=== PATIENT | male | born 1970 | race African-American/Black ===

== ENCOUNTER 2016-08-15 08:21 | Emergency (ER) | payer MEDICARE ==
[2016-08-15] MEDS ORDERED: HYDRALAZINE HCL INJ/PF 20 MG/1 ML SDV IV ONE ×2 (09:17→12:05)
[2016-08-15] MEDS ORDERED: FUROSEMIDE INJ/PF 40 MG/4 ML SDV IV ONE (09:17)
[2016-08-15] MEDS ORDERED: CLOBETASOL PROPIONATE 0.05% TOPICAL SOLN 25 ML TP ONE (09:18)
[2016-08-15 10:11] LABS: ABSOLUTE EOSINOPHILS # (AUTO) 0.1 10^3/uL (0.0-0.6); ABSOLUTE LYMPHOCYTES (AUTO) 1.2 10^3/uL (0.5-4.7); ABSOLUTE MONOCYTES (AUTO) 0.4 10^3/uL (0.1-1.4); ABSOLUTE NEUT (AUTO) 3.1 10^3/uL (1.7-8.2); BASOPHILS % (AUTO) 0.6 % (0-2); EOSINOPHILS % (AUTO) 2.4 % (0-6); HEMATOCRIT 38.9 % (37.9-51.0); HEMOGLOBIN 13.1 g/dL (13.5-17.0); HGB HCT DIFFERENCE 0.4; LYMPHOCYTES % (AUTO) 25.2 % (13-45); MEAN CORPUSCULAR HEMOGLOBIN 29.1 pg (27.0-33.4); MEAN CORPUSCULAR HGB CONC 33.7 g/dL (32.0-36.0); MEAN CORPUSCULAR VOLUME 86 fl (80-97); MONOCYTES % (AUTO) 7.4 % (3-13); RED BLOOD COUNT 4.52 10^6/uL (4.35-5.55); RED CELL DISTRIBUTION WIDTH 14.6 % (11.5-14.0); SEGMENTED NEUTROPHILS % (AUTO) 64.4 % (42-78); WHITE BLOOD COUNT 4.8 10^3/uL (4.0-10.5)
[2016-08-15 10:28] LABS: ALANINE AMINOTRANSFERASE 25 U/L (21-72); ALKALINE PHOSPHATASE 93 U/L (38-126); ANION GAP 10 (5-19); ASPARTATE AMINO TRANSFERASE 23 U/L (17-59); BILIRUBIN,TOTAL 0.7 mg/dL (0.2-1.3); BLOOD UREA NITROGEN 17 mg/dL (7-20); CALCIUM 9.6 mg/dL (8.4-10.2); CARBON DIOXIDE 28 mmol/L (22-30); CHLORIDE 98 mmol/L (98-107); CREATINE KINASE 93 U/L (55-170); CREATININE RESULT 0.98 mg/dL (0.52-1.25); GLUCOSE 320 mg/dL (75-110); POTASSIUM 4.3 mmol/L (3.6-5.0); SODIUM 135.7 mmol/L (137-145); TOTAL PROTEIN 6.8 g/dL (6.3-8.2)
[2016-08-15 10:40] LABS: CREATINE KINASE MB 0.78 ng/mL (<4.55); TROPONIN I 0.016 ng/mL
[2016-08-15 11:37] LABS: APPEARANCE,URINE CLEAR; BILIRUBIN,URINE NEGATIVE (NEGATIVE); GLUCOSE, URINE >=500 mg/dL (NEGATIVE); KETONES,URINE NEGATIVE (NEGATIVE); LEUKOCYTE ESTERASE,URINE NEGATIVE (NEGATIVE); NITRITE,URINE NEGATIVE (NEGATIVE); PROTEIN,URINE 30 mg/dL (NEGATIVE); URINE SPECIFIC GRAVITY 1.016; UROBILINOGEN,URINE NEGATIVE mg/dL (<2.0)
[2016-08-15 11:50] LABS: URINE BARBITURATES SCREEN NEGATIVE; URINE METHADONE SCREEN NEGATIVE; URINE OPIATES LOW NEGATIVE; URINE PHENCYCLIDINE SCREEN NEGATIVE
[2016-08-15] MEDS ORDERED: CLONIDINE HCL 0.2 MG TABLET PO ONE (11:52)
[2016-08-15] MEDS ORDERED: HYDRALAZINE HCL 50 MG TABLET PO ONE (11:52)
[2016-08-15] MEDS ORDERED: NORMAL SALINE 1000 ML 500 ML IV ONE (12:50)
--- NOTE | 2016-08-15 14:51 | ER Document Report ---
ED General - General Chief Complaint: Edema Stated Complaint: LEG PAIN TRAVEL OUTSIDE OF THE [place] IN LAST 30 DAYS: No - HPI Patient complains to provider of: edema hypertension psoriasis Notes: Patient coming in for evaluation of his plaque psoriasis his hypertension and lower extremity edema. Patient states he was recently admitted to the hospital at that time he return to his home of your patient is now returned to a requesting refills as medication and further evaluation of lotion knee edema and his diffuse plaque psoriasis. patient states that he does have a cream he is out of this medication also states he is out of some of his blood pressure medications. patient states that she is compliant with medication however he does relay to the nurse date sometimes does not take all his medications due to the number of them. patient also states history of dvt in the past. at this time 5 iron patient patient blood pressure is severely elevated however patient seems to be in no obvious distress. denies fevers chills nausea vomiting chest pain abdominal pain - Related Data Allergies/Adverse Reactions: iodine [Iodine] Allergy (Severe, Verified 08/15/16 08:29) SWELLING Shellfish * [Shellfish] Allergy (Severe, Verified 08/15/16 08:29) Anaphylaxis morphine [Morphine] Allergy (Mild, Verified 08/15/16 08:29) diazepam [From Valium] Allergy (Verified 08/15/16 08:29) Home Medications: Current Home Medications Oxycodone HCl/Acetaminophen [Percocet 10-325 Mg Tablet] 1 tab PO Q4HP PRN [History] Past Medical History - Social History Smoking Status: Never Smoker Chew tobacco use (# tins/day): No Frequency of alcohol use: None Drug Abuse: None Family History: Arthritis, CAD, CVA, DM, Hyperlipidemia, Hypertension, Malignancy, Other Patient has suicidal ideation: No Patient has homicidal ideation: No - Past Medical History Cardiac Medical History: Reports: Hx Coronary Artery Disease, Hx DVT - right leg., Hx Heart Attack, Hx Hypercholesterolemia, Hx Hypertension, Hx Heart Murmur Pulmonary Medical History: Denies: Hx Asthma, Hx COPD, Hx Tuberculosis Neurological Medical History: Reports: Hx Cerebrovascular Accident - Lt sided weakness, Hx Seizures Endocrine Medical History: Reports: Hx Diabetes Mellitus Type 1, Hx Diabetes Mellitus Type 2. Denies: Hx Hyperthyroidism, Hx Hypothyroidism Renal/ Medical History: Reports: Hx Kidney Stones. Denies: Hx Peritoneal Dialysis GI Medical History: Reports: Hx Gastroesophageal Reflux Disease. Denies: Hx Cirrhosis, Hx Hepatitis Musculoskeltal Medical History: Reports Hx Arthritis, Reports Hx Muscle Weakness - Left Skin Medical History: Reports Hx Eczema, Denies Hx MRSA, Reports Hx Psoriasis Psychiatric Medical History: Denies: Hx Depression, Hx Schizoaffective Disorder Infectious Medical History: Denies: Hx Hepatitis, Hx MRSA Past Surgical History: Reports: Hx Cardiac Catheterization, Hx Cardiac Surgery - VSD having four previous surgeries as a child; heart valve defect, Hx Open Heart Surgery - VSD having four previous surgeries as a child; heart valve defect, Hx Vascular Surgery - Stents in right leg, Other - 4 separate operations for ventricular septal defect as a child.. Denies: Hx Pacemaker - Immunizations Immunizations up to date: Yes Hx Diphtheria, Pertussis, Tetanus Vaccination: Yes Hx Pneumococcal Vaccination: 03/24/13 Review of Systems - Review of Systems Constitutional: Other - Hypertension plaque psoriasis and lower extremity edema EENT: No symptoms reported Cardiovascular: No symptoms reported Respiratory: No symptoms reported Gastrointestinal: No symptoms reported Genitourinary: No symptoms reported Male Genitourinary: No symptoms reported Musculoskeletal: No symptoms reported Skin: No symptoms reported Hematologic/Lymphatic: No symptoms reported Neurological/Psychological: No symptoms reported -: Yes All other systems reviewed and negative Physical Exam - Vital signs Vitals: Temp Pulse Resp BP Pulse Ox 97.8 F 96 18 198/117 H 96 08/15/16 08:28 08/15/16 08:28 08/15/16 08:28 08/15/16 08:28 08/15/16 08:28 Interpretation: Hypertensive - General General appearance: Appears well, Alert - HEENT Head: Normocephalic, Atraumatic Eyes: Normal Pupils: PERRL - Respiratory Respiratory status: No respiratory distress Chest status: Nontender Breath sounds: Normal Chest palpation: Normal - Cardiovascular Rhythm: Regular Heart sounds: Normal auscultation Murmur: No - Abdominal Inspection: Normal Distension: No distension Bowel sounds: Normal Tenderness: Nontender Organomegaly: No organomegaly - Back Back: Normal, Nontender - Extremities General upper extremity: Normal inspection, Nontender, Normal color, Normal ROM , Normal temperature General lower extremity: Normal inspection, Nontender, Edema - Mild trace edema bilateral Tenderness, Normal color, Normal ROM, Normal temperature, Normal weight bearing. No: Eric's sign - Neurological Neuro grossly intact: Yes Cognition: Normal Orientation: AAOx4 Eric Coma Scale Eye Opening: Spontaneous [place] Coma Scale Verbal: Oriented [place] Coma Scale Motor: Obeys Commands Eric Coma Scale Total: 15 Speech: Normal Motor strength normal: LUE, RUE, LLE, RLE Sensory: Normal - Psychological Associated symptoms: Normal affect, Normal mood - Skin Skin Temperature: Warm Skin Moisture: Dry Skin Color: Normal, Other - Diffuse plaque psoriasis on the lower extremities seems to be spreading to the upper extremities no signs of overlying cellulitis no signs of infection Course - Re-evaluation Re-evalutation: 08/15/16 15:49 Patient was given IV hydralazine while initial studies reperformed. No signs of DVT chest x-rays negative shows stable cardiomegaly. Lab work shows no serious pathology. Patient was then given a dose of his home medications. Patient did have a near-syncopal episode here in the ER upon standing did become diaphoretic however mildly hypertensive this resolved upon laying patient in the stretcher. Patient complains of no other symptoms during this time. Patient was observed after this no other episodes. Patient was able ambulate without difficulty. Patient had a refill of his medications. Patient was encouraged follow-up with a PCP. Hypertension had improved. Patient will be discharged home - Vital Signs Vital signs: Temp Pulse Resp BP Pulse Ox 97.8 F 96 21 H 133/78 H 97 08/15/16 08:28 08/15/16 08:28 08/15/16 13:31 08/15/16 13:31 08/15/16 13:31 - Laboratory Result Diagrams: 08/15/16 09:50 08/15/16 09:50 Laboratory results interpreted by me: 08/15/16 08/15/16 08/15/16 09:50 09:50 09:50 Hgb 13.1 L RDW 14.6 H Sodium 135.7 L Glucose 320 H POC Glucose NT-Pro-B Natriuret Pep 512 H Urine Protein Urine Glucose (UA) 08/15/16 08/15/16 10:45 12:49 Hgb RDW Sodium Glucose POC Glucose 270 H NT-Pro-B Natriuret Pep Urine Protein 30 H Urine Glucose (UA) >=500 H Discharge - Discharge Clinical Impression: Insulin dependent diabetes mellitus, Swelling of lower extremity Hypertension Qualifiers: Hypertension type: essential hypertension Qualified Code(s): I10 - Essential ( primary) hypertension Condition: Good Disposition: HOME, SELF-CARE Instructions: High Blood Pressure ([facility]), Edema, Peripheral ([facility]) Additional Instructions: Please follow-up with your primary care physician. Return to the ER symptoms worsen. Take medications as prescribed.
[2016-08-15 15:50] VITALS: BP 134/76
--- NOTE | 2016-08-15 19:00 | XCELERA REPORT ---
[address] [address] Lower Extremity Venous Evaluation Name: SHARON JERONIMO Age: 45 yrs Gender: Male : 1970 Patient Status: Emergency Patient Location: ER Study Date: 08/15/2016 10:04 AM Procedure: Color flow and duplex imaging bilaterally of the veins of the lower extremities as well as the Common Femoral veins. Reason For Study: hx of dvt bilateral swelling and pain Ordering Physician: ALAINA FARRELL Performed By: Asa Dorsey Right Sided Venous Evaluation Normal vessel filling wall to wall, compression and augmentation as well as Colour flow down to the infrageniculate veins. Left Sided Venous Evaluation Normal vessel filling wall to wall, compression and augmentation as well as Colour flow down to the infrageniculate veins. Critical Findings Called in to Dr Daughtery. Interpretation Summary No duplex evidence of DVT or obstruction in the bilateral lower extremities. : ALAINA FARRELL > Josiah Eaton
--- NOTE | 2016-08-16 08:15 | EKG REPORT ---
SEVERITY:- ABNORMAL ECG - SINUS RHYTHM PROBABLE LEFT ATRIAL ABNORMALITY INCOMPLETE RBBB AND LAFB ABNORMAL T, CONSIDER ISCHEMIA, LATERAL LEADS BORDERLINE PROLONGED QT INTERVAL : Confirmed by: Loyda Fernandes MD 16-Aug-2016 08:14:51
== END 2016-08-15 15:20 | disposition home or self-care (01) ==
LOC: ER 08:21
DX: E11.9 Type 2 diabetes mellitus without complications (principal); R60.0 Localized edema; M79.609 Pain in unspecified limb; L40.0 Psoriasis vulgaris; I10 Essential (primary) hypertension; Z79.4 Long term (current) use of insulin
CPT/HCPCS: 93005; 96376; 99285; 96374; 96375; 36415; 82553; 82962; 82550; 85025; 80053; 81001; 84484; 80307; 83880; 93970 ×2; 71010; 93010; A9270 ×2; J3490; J1940; J0360; J7030

== ENCOUNTER 2016-11-08 10:03 | Inpatient (IN) | payer MEDICARE ==
--- NOTE | 2016-11-08 10:36 | EKG REPORT ---
SEVERITY:- ABNORMAL ECG - SINUS RHYTHM LEFT ATRIAL ABNORMALITY LEFT ANTERIOR FASCICULAR BLOCK ABNORMAL T, CONSIDER ISCHEMIA, LATERAL LEADS BORDERLINE PROLONGED QT INTERVAL : Confirmed by: Loyda Fernandes MD 08-Nov-2016 10:35:56
[2016-11-08] MEDS ORDERED: ASPIRIN 81 MG TABLET, CHEWABLE PO ONE (10:49)
--- NOTE | 2016-11-08 10:49 | ER Document Report ---
ED Medical Screen (RME) - General Chief Complaint: Chest Pain Stated Complaint: CHEST PAIN/SHORTNESS OF BREATH Time Seen by Provider: 11/08/16 10:43 Notes: Patient says he began experiencing chest pains last night while watching TV. The pain is located in the lower substernal region of his chest and goes to the right chest. As he had a heart attack in 2010 with exactly the same symptoms. He also started having a severe headache last night about 7:30 PM. Patient recently moved back to this area from [facility]. He has very severe hypertension and is on multiple medications for his blood pressure. He also has had a stroke in the past. So has had blood clots in his legs and is currently on Coumadin. TRAVEL OUTSIDE OF THE [place] IN LAST 30 DAYS: No - Related Data Allergies/Adverse Reactions: iodine [Iodine] Allergy (Severe, Verified 08/15/16 08:29) SWELLING Shellfish * [Shellfish] Allergy (Severe, Verified 08/15/16 08:29) Anaphylaxis morphine [Morphine] Allergy (Mild, Verified 08/15/16 08:29) diazepam [From Valium] Allergy (Verified 08/15/16 08:29) furosemide [From Lasix] Allergy (Verified 11/08/16 10:20) Past Medical History - Social History Family history: CAD - Past Medical History Cardiac Medical History: Reports: Hx Coronary Artery Disease, Hx DVT - right leg., Hx Heart Attack, Hx Hypercholesterolemia, Hx Hypertension, Hx Heart Murmur Pulmonary Medical History: Denies: Hx Asthma, Hx COPD, Hx Tuberculosis Neurological Medical History: Reports: Hx Cerebrovascular Accident - Lt sided weakness, Hx Seizures Endocrine Medical History: Reports: Hx Diabetes Mellitus Type 1, Hx Diabetes Mellitus Type 2. Denies: Hx Hyperthyroidism, Hx Hypothyroidism Renal/ Medical History: Reports: Hx Kidney Stones. Denies: Hx Peritoneal Dialysis GI Medical History: Reports: Hx Gastroesophageal Reflux Disease. Denies: Hx Cirrhosis, Hx Hepatitis Musculoskeltal Medical History: Reports Hx Arthritis, Reports Hx Muscle Weakness - Left Skin Medical History: Reports Hx Eczema, Denies Hx MRSA, Reports Hx Psoriasis Psychiatric Medical History: Denies: Hx Depression, Hx Schizoaffective Disorder Infectious Medical History: Denies: Hx Hepatitis, Hx MRSA Past Surgical History: Reports: Hx Cardiac Catheterization, Hx Cardiac Surgery - VSD having four previous surgeries as a child; heart valve defect, Hx Open Heart Surgery - VSD having four previous surgeries as a child; heart valve defect, Hx Vascular Surgery - Stents in right leg, Other - 4 separate operations for ventricular septal defect as a child.. Denies: Hx Pacemaker - Immunizations Immunizations up to date: Yes Hx Diphtheria, Pertussis, Tetanus Vaccination: Yes Physical Exam - Vital signs Vitals: Temp Pulse Resp BP Pulse Ox 98.2 F 89 24 H 199/120 H 96 11/08/16 10:20 11/08/16 10:20 11/08/16 10:20 11/08/16 10:20 11/08/16 10:20 Course - Vital Signs Vital signs: Temp Pulse Resp BP Pulse Ox 98.2 F 89 24 H 199/120 H 96 11/08/16 10:20 11/08/16 10:20 11/08/16 10:20 11/08/16 10:20 11/08/16 10:20
[2016-11-08 11:46] LABS: ABSOLUTE BASOPHILS # (AUTO) 0.1 10^3/uL (0.0-0.2); ABSOLUTE EOSINOPHILS # (AUTO) 0.1 10^3/uL (0.0-0.6); ABSOLUTE LYMPHOCYTES (AUTO) 1.5 10^3/uL (0.5-4.7); ABSOLUTE MONOCYTES (AUTO) 0.2 10^3/uL (0.1-1.4); ABSOLUTE NEUT (AUTO) 3.6 10^3/uL (1.7-8.2); BASOPHILS % (AUTO) 1.4 % (0-2); EOSINOPHILS % (AUTO) 1.2 % (0-6); HEMATOCRIT 40.8 % (37.9-51.0); HEMOGLOBIN 13.6 g/dL (13.5-17.0); LYMPHOCYTES % (AUTO) 27.5 % (13-45); MEAN CORPUSCULAR HEMOGLOBIN 28.9 pg (27.0-33.4); MEAN CORPUSCULAR HGB CONC 33.3 g/dL (32.0-36.0); MEAN CORPUSCULAR VOLUME 87 fl (80-97); MONOCYTES % (AUTO) 4.4 % (3-13); RED BLOOD COUNT 4.71 10^6/uL (4.35-5.55); RED CELL DISTRIBUTION WIDTH 14.9 % (11.5-14.0); SEGMENTED NEUTROPHILS % (AUTO) 65.5 % (42-78); WHITE BLOOD COUNT 5.5 10^3/uL (4.0-10.5)
[2016-11-08] MEDS ORDERED: LABETALOL HCL 200 MG TABLET PO ONE (11:49)
[2016-11-08] MEDS ORDERED: HYDRALAZINE HCL 50 MG TABLET PO ONE ×2 (11:49→16:00)
[2016-11-08] MEDS ORDERED: LISINOPRIL 10 MG TABLET PO ONE (11:49)
[2016-11-08] MEDS ORDERED: CHLORTHALIDONE 25 MG TABLET PO ONE (11:50)
[2016-11-08] MEDS ORDERED: NIFEDIPINE 30 MG TAB.ER.24 PO ONE ×2 (11:50→16:00)
[2016-11-08] MEDS ORDERED: SPIRONOLACTONE 25 MG TABLET PO ONE (11:50)
--- NOTE | 2016-11-08 11:56 | ER Document Report ---
ED Cardiac - General Chief Complaint: Chest Pain Stated Complaint: CHEST PAIN/SHORTNESS OF BREATH Time Seen by Provider: 11/08/16 10:43 Notes: The patient is a 46-year-old male, past medical history hypertension, diabetes, CAD s/p stents and CABG in 2010, DVT last year (out of his Coumadin), presents with substernal chest pressure radiating to his right chest and right jaw that started at rest last night. He took a sublingual nitro with some relief of his pain. He did not take his home blood pressure medication today because he was afraid that his blood pressure would drop too quickly with the nitro. he was living in [facility], but moved back to [place] a few weeks ago. He does not have a primary care physician yet. He denies shortness of breath, leg swelling, hemoptysis, cough, back pain, abdominal pain, fevers, nausea or vomiting. TRAVEL OUTSIDE OF THE [place] IN LAST 30 DAYS: No - Related Data Allergies/Adverse Reactions: iodine [Iodine] Allergy (Severe, Verified 08/15/16 08:29) SWELLING Shellfish * [Shellfish] Allergy (Severe, Verified 08/15/16 08:29) Anaphylaxis morphine [Morphine] Allergy (Mild, Verified 08/15/16 08:29) diazepam [From Valium] Allergy (Verified 08/15/16 08:29) furosemide [From Lasix] Allergy (Verified 11/08/16 10:20) Past Medical History - General Information source: Patient - Social History Smoking Status: Unknown if Ever Smoked Family History: Arthritis, CAD, CVA, DM, Hyperlipidemia, Hypertension, Malignancy, Other Patient has suicidal ideation: No Patient has homicidal ideation: No - Past Medical History Cardiac Medical History: Reports: Hx Coronary Artery Disease, Hx DVT - right leg., Hx Heart Attack, Hx Hypercholesterolemia, Hx Hypertension, Hx Heart Murmur Pulmonary Medical History: Denies: Hx Asthma, Hx COPD, Hx Tuberculosis Neurological Medical History: Reports: Hx Cerebrovascular Accident - Lt sided weakness, Hx Seizures Endocrine Medical History: Reports: Hx Diabetes Mellitus Type 1, Hx Diabetes Mellitus Type 2. Denies: Hx Hyperthyroidism, Hx Hypothyroidism Renal/ Medical History: Reports: Hx Kidney Stones. Denies: Hx Peritoneal Dialysis GI Medical History: Reports: Hx Gastroesophageal Reflux Disease. Denies: Hx Cirrhosis, Hx Hepatitis Musculoskeltal Medical History: Reports Hx Arthritis, Reports Hx Muscle Weakness - Left Skin Medical History: Reports Hx Eczema, Denies Hx MRSA, Reports Hx Psoriasis Psychiatric Medical History: Denies: Hx Depression, Hx Schizoaffective Disorder Infectious Medical History: Denies: Hx Hepatitis, Hx MRSA Past Surgical History: Reports: Hx Cardiac Catheterization, Hx Cardiac Surgery - VSD having four previous surgeries as a child; heart valve defect, Hx Open Heart Surgery - VSD having four previous surgeries as a child; heart valve defect, Hx Vascular Surgery - Stents in right leg, Other - 4 separate operations for ventricular septal defect as a child.. Denies: Hx Pacemaker - Immunizations Immunizations up to date: Yes Hx Diphtheria, Pertussis, Tetanus Vaccination: Yes Hx Pneumococcal Vaccination: 03/24/13 Review of Systems - Review of Systems Notes: REVIEW OF SYSTEMS: CONSTITUTIONAL: -fevers, -chills EENT: -eye pain, -difficulty swallowing, -nasal congestion CARDIOVASCULAR: +chest pain, -syncope. RESPIRATORY: -cough, -SOB GASTROINTESTINAL: -abdominal pain, -nausea, -vomiting, -diarrhea GENITOURINARY: -dysuria, -hematuria MUSCULOSKELETAL: -back pain, -neck pain SKIN: -rash or skin lesions. HEMATOLOGIC: -easy bruising or bleeding. LYMPHATIC: -swollen, enlarged glands. NEUROLOGICAL: -altered mental status or loss of consciousness, -headache, - neurologic symptoms PSYCHIATRIC: -anxiety, -depression. ALL OTHER SYSTEMS REVIEWED AND NEGATIVE. Physical Exam - Vital signs Vitals: Temp Pulse Resp BP Pulse Ox 98.2 F 89 24 H 199/120 H 96 11/08/16 10:20 11/08/16 10:20 11/08/16 10:20 11/08/16 10:20 11/08/16 10:20 - Notes Notes: PHYSICAL EXAMINATION: GENERAL: Well-appearing, well-nourished and in no acute distress. HEAD: Atraumatic, normocephalic. EYES: Pupils equal round and reactive to light, extraocular movements intact, sclera anicteric, conjunctiva are normal. ENT: nares patent, oropharynx clear without exudates. Moist mucous membranes. NECK: Normal range of motion, supple without lymphadenopathy LUNGS: Breath sounds clear to auscultation bilaterally and equal. No wheezes rales or rhonchi. HEART: Regular rate and rhythm without murmurs ABDOMEN: Soft, nontender, normoactive bowel sounds. No guarding, no rebound. No masses appreciated. EXTREMITIES: Normal range of motion, no pitting or edema. No cyanosis. NEUROLOGICAL: Cranial nerves grossly intact. Normal speech, normal gait. Normal sensory, motor, and reflex exams. PSYCH: Normal mood, normal affect. SKIN: Warm, Dry, normal turgor, no rashes or lesions noted. Course - Re-evaluation Re-evalutation: Patient provided with his home blood pressure medications which he did not take with improvement of his blood pressure to 180/100. With Nitropaste, patient is chest pain-free his EKG is unchanged and first troponin is negative. His HEART score is symptoms atypical for aortic dissection or PE at this time. Patient requires observation for further evaluation of this chest pain. 11/08/16 14:[address] Teixeira and he has admitted patient to [facility]. - Vital Signs Vital signs: Temp Pulse Resp BP Pulse Ox 98.2 F 89 21 H 182/100 H 96 11/08/16 10:20 11/08/16 10:20 11/08/16 14:01 11/08/16 14:01 11/08/16 14:01 - Laboratory Result Diagrams: 11/08/16 11:25 11/08/16 11:25 Laboratory results interpreted by me: 11/08/16 11/08/16 11:25 11:25 RDW 14.9 H Carbon Dioxide 32 H Glucose 284 H - Diagnostic Test Radiology reviewed: Image reviewed, Reports reviewed Radiology results interpreted by me: CXR: stable cardiomegaly. NAD - EKG Interpretation by Me EKG shows normal: Sinus rhythm, [place], QRS Complexes When compared to previous EKG there are: No significant change Additional EKG results interpreted by me: T-wave changes in lateral leads, LAFB, QTc 485 Discharge - Discharge Clinical Impression: Chest pain Qualifiers: Chest pain type: unspecified Qualified Code(s): R07.9 - Chest pain, unspecified Hypertension Qualifiers: Hypertension type: unspecified secondary hypertension Qualified Code(s): I15.9 - Secondary hypertension, unspecified; I15 - Secondary hypertension Condition: Stable Disposition: ADMITTED OBSERVATION Admitting Provider: Cheo Teixeira Unit Admitted: Telemetry
[2016-11-08 12:01] LABS: PROTHROMBIN TIME 14.1 SEC (11.4-15.4)
[2016-11-08] MEDS ORDERED: AMINOPHYLLINE INJ/PF 250 MG/10 ML SDV IV ONE (12:11)
[2016-11-08] MEDS ORDERED: REGADENOSON INJ 0.4 MG/5 ML DISP.SYRIN IV ONE (12:11)
[2016-11-08] MEDS: NITROGLYCERIN 0.4 MG/TAB 25 TAB/BOTTLE SL PRN ×2 (12:12→12:20)
[2016-11-08 12:20] LABS: CREATINE KINASE MB 0.71 ng/mL (<4.55)
[2016-11-08 12:21] LABS: TROPONIN I < 0.012 ng/mL
[2016-11-08 12:25] LABS: ALANINE AMINOTRANSFERASE 28 U/L (21-72); ALKALINE PHOSPHATASE 85 U/L (38-126); ANION GAP 7 (5-19); ASPARTATE AMINO TRANSFERASE 27 U/L (17-59); BILIRUBIN,DIRECT 0.4 mg/dL (0.0-0.4); BILIRUBIN,TOTAL 0.7 mg/dL (0.2-1.3); BLOOD UREA NITROGEN 15 mg/dL (7-20); CALCIUM 9.8 mg/dL (8.4-10.2); CARBON DIOXIDE 32 mmol/L (22-30); CHLORIDE 98 mmol/L (98-107); CREATINE KINASE 78 U/L (55-170); CREATININE RESULT 1.03 mg/dL (0.52-1.25); GLUCOSE 284 mg/dL (75-110); POTASSIUM 4.3 mmol/L (3.6-5.0); SODIUM 137.3 mmol/L (137-145); TOTAL PROTEIN 7.7 g/dL (6.3-8.2)
[2016-11-08] MEDS ORDERED: NITROGLYCERIN 2% OINTMENT 1 GM PACKET TP ONE (13:40)
[2016-11-08] MEDS ORDERED: ONDANSETRON HCL INJ/PF 4 MG/2 ML SDV IV PRN (15:01)
[2016-11-08] MEDS ORDERED: ACETAMINOPHEN 325 MG TABLET PO ONE (15:13)
[2016-11-08] MEDS ORDERED: ENALAPRILAT DIHYDRATE INJ/PF 1.25 MG/1 ML SDV IV PRN (15:13)
[2016-11-08] MEDS ORDERED: HYDROMORPHONE HCL INJ/PF 2 MG/ML AMPULE IV PRN (15:25)
[2016-11-08] MEDS ORDERED: DEXTROSE 40% GEL 15 GM TUBE PO PRN ×2 (15:26)
[2016-11-08] MEDS ORDERED: GLUCAGON,HUMAN RECOMB 1 MG INJ IM PRN (15:26)
[2016-11-08] MEDS ORDERED: DEXTROSE 50%-WATER 25 GM/50 ML DISP.SYRIN IV PRN ×2 (15:26)
--- NOTE | 2016-11-08 15:38 | PDOC H&P ---
History of Present Illness Admission Date/PCP: 11/08/16; no PCP Patient complains of: chest pain History of Present Illness: SHARON JERONIMO is a 46 year old male presents to the ED from home with unrelenting, recurring substernal chest pain radiating into Rt chest, sharp, stabbing in nature, asct'd with intense global dull aching APPLE, some better with NTG, no exac factors and no other asct'd symptoms. 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 he has known refractory HTN requiring admission to this hospital in the past and needs a high dose multidrug regimen to get his BPs <200/100 and they are never "normal" . He took his BP last night during the first episode and found 252/169. he underwent stress test 02/2016f inding of fixed inferior defect, low EF at 31% and RVH. echo also performed at that time shows LAE, low nl EF 50%, other findings on chart. eval in ED shows elevated BPs but initial Ranjith neg and ECG shows no acute changes when compared to prior. we were asked to admit for further investigation and treatment. Past Medical History Cardiac Medical History: Reports: Coronary Artery Disease, DVT - right leg., Myocardial Infarction, Hyperlipidema, Hypertension, Heart Murmur Pulmonary Medical History: Denies: Asthma, Chronic Obstructive Pulmonary Disease (COPD), Tuberculosis Neurological Medical History: Reports: Seizures Endocrine Medical History: Reports: Diabetes Mellitus Type 1, Diabetes Mellitus Type 2 Denies: Hyperthyroidism, Hypothyroidism GI Medical History: Reports: Gastroesophageal Reflux Disease Denies: Cirrhosis, Hepatitis Musculoskeltal Medical History: Reports: Arthritis Skin Medical History: Reports: Eczema, Psoriasis Psychiatric Medical History: Denies: Depression, Schizoaffective Disorder Infectious Medical History: Denies: Methicillin-Resistant Staph Aureus Past Surgical History Past Surgical History: Reports: Cardiac Catheterization, Vascular Surgery - Stents in right leg, Other - 4 separate operations for ventricular septal defect as a child. Denies: Pacemaker Social History Information Source: Patient Smoking Status: Never Smoker Frequency of Alcohol Use: Occasional - None for the past 6 months. Hx Recreational Drug Use: No Drugs: None Hx Prescription Drug Abuse: No - Advance Directive Resuscitation Status: Full Code Family History Family History: Arthritis, CAD, CVA, DM, Hyperlipidemia, Hypertension, Malignancy, Other Parental Family History Reviewed: Yes Children Family History Reviewed: Yes Sibling(s) Family History Reviewed.: Yes Medication/Allergy Home Medications: Oxycodone HCl/Acetaminophen [Percocet 10-325 Mg Tablet] 1 tab PO Q4HP PRN Allergies/Adverse Reactions: iodine [Iodine] Allergy (Severe, Verified 08/15/16 08:29) SWELLING Shellfish * [Shellfish] Allergy (Severe, Verified 08/15/16 08:29) Anaphylaxis morphine [Morphine] Allergy (Mild, Verified 08/15/16 08:29) diazepam [From Valium] Allergy (Verified 08/15/16 08:29) furosemide [From Lasix] Allergy (Verified 11/08/16 10:20) Review of Systems Constitutional: ABSENT: chills, fever(s), headache(s), weight gain, weight loss Eyes: ABSENT: visual disturbances Ears: ABSENT: hearing changes Cardiovascular: PRESENT: chest pain. ABSENT: dyspnea on exertion, edema, orthropnea, palpitations Respiratory: ABSENT: cough, hemoptysis Gastrointestinal: ABSENT: abdominal pain, constipation, diarrhea, hematemesis, hematochezia, nausea, vomiting Genitourinary: ABSENT: dysuria, hematuria Musculoskeletal: ABSENT: joint swelling Integumentary: ABSENT: rash, wounds Neurological: ABSENT: abnormal gait, abnormal speech, confusion, dizziness, focal weakness, syncope Psychiatric: ABSENT: anxiety, depression, homidical ideation, suicidal ideation Endocrine: ABSENT: cold intolerance, heat intolerance, polydipsia, polyuria Hematologic/Lymphatic: ABSENT: easy bleeding, easy bruising Physical Exam Vital Signs: Temp Pulse Resp BP Pulse Ox 98.2 F 89 21 H 182/100 H 96 11/08/16 10:20 11/08/16 10:20 11/08/16 14:01 11/08/16 14:01 11/08/16 14:01 Intake & Output 11/07/16 11/08/16 11/09/16 06:59 06:59 06:59 Weight 113.9 kg General appearance: PRESENT: no acute distress, obese Head exam: PRESENT: atraumatic Eye exam: PRESENT: EOMI. ABSENT: scleral icterus Mouth exam: PRESENT: moist, neck supple Neck exam: ABSENT: JVD, tenderness, thyromegaly Respiratory exam: PRESENT: clear to auscultation bernardo, unlabored. ABSENT: accessory muscle use Cardiovascular exam: PRESENT: RRR, systolic murmur. ABSENT: gallop, rubs Pulses: PRESENT: normal carotid pulses, normal radial pulses Vascular exam: PRESENT: normal capillary refill GI/Abdominal exam: PRESENT: normal bowel sounds, soft. ABSENT: tenderness Extremities exam: PRESENT: full ROM. ABSENT: calf tenderness, pedal edema Musculoskeletal exam: PRESENT: ambulatory, full ROM Neurological exam: PRESENT: alert, awake, oriented to person, oriented to place , oriented to time, oriented to situation Psychiatric exam: PRESENT: appropriate affect, normal mood Skin exam: PRESENT: rash - psoriatic plaques scattered over the exts and trunk Results Laboratory Results: 11/08/16 11:25 11/08/16 11:25 11/08/16 11/08/16 11:25 11:25 WBC 5.5 RBC 4.71 Hgb 13.6 Hct 40.8 MCV 87 MCH 28.9 MCHC 33.3 RDW 14.9 H Plt Count 217 Seg Neutrophils % 65.5 Lymphocytes % 27.5 Monocytes % 4.4 Eosinophils % 1.2 Basophils % 1.4 Absolute Neutrophils 3.6 Absolute Lymphocytes 1.5 Absolute Monocytes 0.2 Absolute Eosinophils 0.1 Absolute Basophils 0.1 Sodium 137.3 Potassium 4.3 Chloride 98 Carbon Dioxide 32 H Anion Gap 7 BUN 15 Creatinine 1.03 Est GFR ( Amer) > 60 Est GFR (Non-Af Amer) > 60 Glucose 284 H Calcium 9.8 Total Bilirubin 0.7 AST 27 ALT 28 Alkaline Phosphatase 85 Total Protein 7.7 Albumin 4.0 11/08/16 11/08/16 11:25 11:25 Creatine Kinase 78 CK-MB (CK-2) 0.71 Troponin I < 0.012 EKG Comments: NSR with TWIs lateral leads as before. Impressions: Chest X-Ray 11/08/16 10:49 IMPRESSION: Stable cardiomegaly. No focal infiltrates. Status: Image reviewed by me Assessment & Plan - Diagnosis (1) Chest pain Qualifiers: Chest pain type: unspecified Qualified Code(s): R07.9 - Chest pain, unspecified Is this a current diagnosis for this admission?: YesPlan: admit to obs monitored bed and r/o with serial enzymes; given his hx will need stress testing in the morning and cardiology consult. case discussed wt Dr Khan who will see in consultation. (2) Status post ventricular septal defect closure Is this a current diagnosis for this admission?: YesPlan: perhaps accounts for this murmur though I suspect related to RVH and inflow disturbance. defer to dr khan regarding additional evaluation. (3) Accelerated hypertension Is this a current diagnosis for this admission?: YesPlan: states he has been compliant with his medical regimen, will resume a multi drug regimen except BB in anticipation of stress test in am, and titrate to effect. (4) Headache Qualifiers: Headache type: other drug induced headache Intractability: not intractable Qualified Code(s): G44.40 - Drug-induced headache, not elsewhere classified, not intractable Is this a current diagnosis for this admission?: YesPlan: likely NTG induced as it didn't really start until after he initiated NTG t home. remove NTG from his chest and tx with analgesics and monitor for effect. (5) Plaque psoriasis Is this a current diagnosis for this admission?: YesPlan: psoriasis raises his risk for ASCVD/CAD. hold on further chemo or Tx at this time, defer to outpt provider for further eval and Tx. - Time Time Spent: Greater than 70 Minutes Medications reviewed and adjusted accordingly: Yes Anticipated discharge: Home Within: within 48 hours
[2016-11-08] MEDS ORDERED: CLONIDINE HCL 0.2 MG TABLET PO ONE (16:00)
[2016-11-08] MEDS ORDERED: ENOXAPARIN SODIUM INJ 40 MG/0.4 ML DISP.SYRIN SUBCUT ONE (16:00)
[2016-11-08 16:29] LABS: HEMATOCRIT 40.9 % (37.9-51.0); HEMOGLOBIN 13.7 g/dL (13.5-17.0); HGB HCT DIFFERENCE 0.2; MEAN CORPUSCULAR HEMOGLOBIN 28.7 pg (27.0-33.4); MEAN CORPUSCULAR HGB CONC 33.6 g/dL (32.0-36.0); MEAN CORPUSCULAR VOLUME 86 fl (80-97); RED BLOOD COUNT 4.78 10^6/uL (4.35-5.55); RED CELL DISTRIBUTION WIDTH 15.1 % (11.5-14.0); WHITE BLOOD COUNT 5.1 10^3/uL (4.0-10.5)
[2016-11-08 16:38] LABS: PROTHROMBIN TIME 13.5 SEC (11.4-15.4)
[2016-11-08 16:39] LABS: PARTIAL THROMBOPLASTIN TIME 32.5 SEC (23.5-35.8)
[2016-11-08 16:53] LABS: CREATININE RESULT 0.93 mg/dL (0.52-1.25)
[2016-11-08 17:05] LABS: CREATINE KINASE MB 0.66 ng/mL (<4.55); TROPONIN I 0.016 ng/mL
[2016-11-08] MEDS: INSULIN LISPRO 100 UNIT/ML 3 ML VIAL SUBCUT PRN ×2 (19:17→22:32)
[2016-11-08] MEDS: METOPROLOL TARTRATE PF/INJ 5 MG/5 ML SDV IV PRN (20:33)
[2016-11-08] MEDS: CLONIDINE HCL 0.2 MG TABLET PO SCH (22:09)
[2016-11-08] MEDS: HYDRALAZINE HCL 50 MG TABLET PO SCH (22:10)
[2016-11-08] MEDS: CARVEDILOL 12.5 MG TABLET PO SCH (22:10)
[2016-11-08] MEDS: LISINOPRIL 10 MG TABLET PO SCH (22:11)
[2016-11-08] MEDS: NIFEDIPINE 30 MG TAB.ER.24 PO SCH (22:11)
[2016-11-08] MEDS: ATORVASTATIN CALCIUM 80 MG TABLET PO SCH (22:33)
--- NOTE | 2016-11-08 22:53 | PDOC CONSULTATION ---
Consultation Consult Date: 11/08/16 Attending physician:: MELQUIADES GALLEGOS Consult reason:: Chest pain History of Present Illness Admission Date/PCP: 11/08/16 15:27 Patient complains of: Dyspnea and chest pain History of Present Illness: SHARON JERONIMO is a 46 year old male admitted through the emergency department with unrelenting, recurring substernal chest pain radiating into Rt chest, sharp , stabbing in nature, asct'd with intense global dull aching APPLE, some better with NTG, no exac factors and no other asct'd symptoms. he has hx of ASCVD with stents 18 hrs ago; also has hx of congenital VSD requiring surgical repair as an infant and into his teens, last performed at age of 22. he has known refractory HTN requiring admission to this hospital in the past and needs a high dose multidrug regimen to get his BPs <200/100 and they are never "normal ". He took his BP last night during the first episode and found 252/169. he underwent stress test 02/2016 finding of fixed inferior defect, low EF at 31% and RVH. echo also performed at that time shows LAE, low nl EF 50%, other findings on chart. Eval in ED shows elevated BPs but initial Ranjith neg and ECG shows no acute changes when compared to prior. we were asked to admit for further investigation and treatment. Saw the patient at around 6:30 PM. At that time he denied having any chest pain. His blood pressure was noted to be 180/110. He is being admitted. Patient's previous cardiac history reviewed. Patient had occasional nausea. Patient denied any shortness of breath. He denies any sustained palpitations, syncope, near syncope. On repeated questioning patient maintains that he has been compliant with medication. Patient denied any illicit drug abuse. Past Medical History Cardiac Medical History: Reports: Coronary Artery Disease, DVT - right leg., Myocardial Infarction, Hyperlipidema, Hypertension, Heart Murmur Pulmonary Medical History: Denies: Asthma, Chronic Obstructive Pulmonary Disease (COPD), Tuberculosis Neurological Medical History: Reports: Seizures Endocrine Medical History: Reports: Diabetes Mellitus Type 2 Denies: Hyperthyroidism, Hypothyroidism Renal/ Medical History: Reports: Nephrolithiasis GI Medical History: Reports: Gastroesophageal Reflux Disease Denies: Cirrhosis, Hepatitis Musculoskeltal Medical History: Reports: Arthritis Skin Medical History: Reports: Eczema, Psoriasis Psychiatric Medical History: Denies: Depression, Schizoaffective Disorder Infectious Medical History: Denies: Methicillin-Resistant Staph Aureus Past Surgical History Past Surgical History: Reports: Cardiac Catheterization, Vascular Surgery - Stents in right leg, Other - 4 separate operations for ventricular septal defect as a child. Denies: Pacemaker Social History Information Source: Patient Smoking Status: Never Smoker Frequency of Alcohol Use: Occasional - None for the past 6 months. Hx Recreational Drug Use: No Drugs: None Hx Prescription Drug Abuse: No - Advance Directive Resuscitation Status: Full Code Family History Family History: Arthritis, CAD, CVA, DM, Hyperlipidemia, Hypertension, Malignancy, Other Parental Family History Reviewed: Yes Children Family History Reviewed: Yes Sibling(s) Family History Reviewed.: Yes Medication/Allergy Home Medications: Chlorthalidone [Hygroton 25 mg Tablet] 25 mg PO BID 11/08/16 Clobetasol Propionate [Temovate 0.05% Ointment 15 gm] 1 applic TOP DAILY Folic Acid 1 mg PO QPM 11/08/16 Hydralazine HCl [Apresoline 50 mg Tablet] 100 mg PO BID 11/08/16 Labetalol HCl [Normodyne 200 mg Tablet] 200 mg PO DAILY 11/08/16 Lisinopril [Prinivil] 20 mg PO BID 11/08/16 Metformin HCl [Metformin HCl ER] 500 mg PO TID 11/08/16 Methotrexate Sodium [Methotrexate] 10 mg PO WE 11/08/16 Nifedipine [Procardia XL 60 mg Tablet] 60 mg PO BID 11/08/16 Nitroglycerin [Nitrostat] 0.4 mg SL Q5MP PRN 11/08/16 Oxycodone HCl/Acetaminophen [Percocet 10-325 mg Tablet] 1 tab PO TID 11/08/16 Prednisolone Acetate [Pred Forte] 1 drop OS Q4 11/08/16 Spironolactone [Aldactone 25 mg Tablet] 25 mg PO DAILY 11/08/16 Tamsulosin HCl [Flomax 0.4 mg Cap.sr] 0.4 mg PO QAM 11/08/16 Topiramate [Topamax 25 mg Tablet] 25 mg PO DAILYP PRN 11/08/16 Warfarin Sodium [Coumadin] 0 mg PO DAILY 11/08/16 Allergies/Adverse Reactions: iodine [Iodine] Allergy (Severe, Verified 08/15/16 08:29) SWELLING Shellfish * [Shellfish] Allergy (Severe, Verified 08/15/16 08:29) Anaphylaxis morphine [Morphine] Allergy (Mild, Verified 08/15/16 08:29) diazepam [From Valium] Allergy (Verified 08/15/16 08:29) furosemide [From Lasix] Allergy (Verified 11/08/16 10:20) Review of Systems Constitutional: PRESENT: headache(s). ABSENT: chills, fever(s), weight gain, weight loss Eyes: ABSENT: visual disturbances Ears: ABSENT: hearing changes Cardiovascular: PRESENT: chest pain, dyspnea on exertion. ABSENT: edema, orthropnea, palpitations Respiratory: PRESENT: dyspnea. ABSENT: cough, hemoptysis Gastrointestinal: ABSENT: abdominal pain, constipation, diarrhea, hematemesis, hematochezia, nausea, vomiting Genitourinary: ABSENT: dysuria, hematuria Musculoskeletal: ABSENT: joint swelling Integumentary: ABSENT: rash, wounds Neurological: ABSENT: abnormal gait, abnormal speech, confusion, dizziness, focal weakness, syncope Psychiatric: ABSENT: anxiety, depression, homidical ideation, suicidal ideation Endocrine: ABSENT: cold intolerance, heat intolerance, polydipsia, polyuria Hematologic/Lymphatic: ABSENT: easy bleeding, easy bruising Physical Exam Vital Signs: Temp Pulse Resp BP Pulse Ox 98.3 F 97 25 H 167/113 H 99 11/08/16 21:00 11/08/16 20:00 11/08/16 21:01 11/08/16 21:01 11/08/16 21:01 Exam: GENERAL: well-nourished and in no acute distress. Alert and oriented x3 HEAD: Atraumatic, normocephalic. EYES: Pupils equal round and reactive to light, extraocular movements intact, sclera anicteric, conjunctiva are normal. ENT: TMs normal, nares patent, oropharynx clear without exudates. Moist mucous membranes. No oral ulcerations or bleeding gums noted NECK: supple without lymphadenopathy. Trachea is central. No cervical or axillary lymphadenopathy noted. Carotids are 2+, JVD WNL LUNGS: Respiration seems nonlabored, no significant accessory muscle action noted. Breath sounds clear to auscultation bilaterally and equal noted. No wheezes rales or rhonchi noted. No significant dullness noted on percussion. CHEST: Palpation of the chest wall shows no significant chest wall tenderness. No other significant abnormalities noted. HEART: [place] [employer], No PSH, 1/6 VY aortic area, 1/6 parker systolic murmur mitral area, no rubs, no gallops. ABDOMEN: Soft, no significant tenderness appreciated, normoactive bowel sounds. No guarding, no rebound. No rigidity noted .No masses appreciated. EXTREMITIES: Pedal pulses are 1-2+, no calf tenderness noted. No clubbing or cyanosis.1+ pedal edema noted, Dermatitis changes both lower extremities. NEUROLOGICAL: Focused neurological exam showed no significant neurologic deficit. Normal speech, no focal weakness appreciated. PSYCH: Normal mood, normal affect. Judgment and insight within normal limits. SKIN: No significant ecchymosis, dermatitis changes noted both lower extremity. In addition patient had psoriatic rash over the trunk. MUSCULOSKELETAL EXAM: No significant joint swelling noted. Results Laboratory Results: 11/08/16 16:04 11/08/16 16:04 11/08/16 11/08/16 16:04 16:04 WBC 5.1 RBC 4.78 Hgb 13.7 Hct 40.9 MCV 86 MCH 28.7 MCHC 33.6 RDW 15.1 H Plt Count 206 Creatinine 0.93 Est GFR ( Amer) > 60 Est GFR (Non-Af Amer) > 60 11/08/16 16:04 CK-MB (CK-2) 0.66 Troponin I 0.016 Impressions: Chest X-Ray 11/08/16 10:49 IMPRESSION: Stable cardiomegaly. No focal infiltrates. Assessment & Plan - Diagnosis (1) Chest pain Qualifiers: Chest pain type: unspecified Qualified Code(s): R07.9 - Chest pain, unspecified Is this a current diagnosis for this admission?: Yes (2) Hypertensive emergency Is this a current diagnosis for this admission?: Yes (3) Dyspnea Qualifiers: Dyspnea type: unspecified Qualified Code(s): R06.00 - Dyspnea, unspecified (4) Diabetes mellitus Qualifiers: Diabetes mellitus type: type 2 Diabetes mellitus complication status: with unspecified complications Is this a current diagnosis for this admission?: Yes (6) HLD (hyperlipidemia) Qualifiers: Hyperlipidemia type: other hyperlipidemia Qualified Code(s): E78.4 - Other hyperlipidemia Is this a current diagnosis for this admission?: Yes - Notes Notes: Chest pain: Patient was noted to have abnormal stress test 6 months ago. However abnormality was borderline. Agree with repeating the stress test as this has been more than 6 months and there has been change in his symptomatology. Also recommend better control of blood pressure. Hypertensive emergency: Patient had severely elevated blood pressure along with chest pain and also headache. Blood pressure now coming under better control. Patient claims compliance but believes noncompliance could be playing a role. Patient advised low salt diet. Patient may benefit from dietary consultation. Dyspnea: Probably related to severe hypertension, diastolic dysfunction. Previous chart review suggests history of valvular heart disease. Since there has been increasing symptoms of dyspnea, believe a 2D echocardiogram is indicated. This was ordered by the hospitalist. Diabetes: Recommend good control of blood sugar. However should avoid any hypoglycemia. Patient being expertly managed by primary care [facility]. Dyslipidemia: Continue with hypotensive statin therapy. Status post VSD closure: Patient stable. Does not need endocarditis prophylaxis in most cases. Patient scheduled for a nuclear stress test. Also scheduled for a 2D echo. Patient's medical regimen reviewed and is noted to be very satisfactory. - Time Time Spent: 30 to 50 Minutes - Patient placed on chlorthalidone 50 mg p.o. daily. Patient blood pressure medications will be optimized. Medications reviewed and adjusted accordingly: Yes
[2016-11-08 23:30] LABS: CREATINE KINASE MB 0.59 ng/mL (<4.55); TROPONIN I 0.015 ng/mL
[2016-11-09 06:03] LABS: CHOLESTEROL 223.75 mg/dL (0-200); Direct HDL 54 mg/dL (>40); TRIGLYCERIDES 121 mg/dL (<150)
[2016-11-09 06:14] LABS: DIRECT LDL 138 mg/dL (<100)
[2016-11-09] MEDS: CLONIDINE HCL 0.2 MG TABLET PO SCH ×3 (06:15→21:34)
[2016-11-09 06:16] LABS: CREATINE KINASE MB 0.61 ng/mL (<4.55); TROPONIN I 0.013 ng/mL
[2016-11-09] MEDS: HYDRALAZINE HCL 50 MG TABLET PO SCH ×3 (06:16→21:34)
[2016-11-09] MEDS: LANSOPRAZOLE 30 MG TAB.RAP.DR PO SCH (06:16)
[2016-11-09] MEDS: ENOXAPARIN SODIUM INJ 40 MG/0.4 ML DISP.SYRIN SUBCUT SCH (07:36)
[2016-11-09] MEDS: METOPROLOL TARTRATE PF/INJ 5 MG/5 ML SDV IV PRN (07:45)
[2016-11-09] MEDS ORDERED: SPIRONOLACTONE 25 MG TABLET PO SCH (10:00)
[2016-11-09] MEDS ORDERED: CHLORTHALIDONE 25 MG TABLET PO SCH (10:00)
[2016-11-09] MEDS: NIFEDIPINE 30 MG TAB.ER.24 PO SCH (10:35)
[2016-11-09] MEDS: CARVEDILOL 12.5 MG TABLET PO SCH (10:36)
[2016-11-09] MEDS: LISINOPRIL 10 MG TABLET PO SCH ×2 (10:37→21:34)
[2016-11-09] MEDS: ASPIRIN 325 MG TABLET, ENT COATED PO SCH (10:38)
[2016-11-09] MEDS: INSULIN LISPRO 100 UNIT/ML 3 ML VIAL SUBCUT PRN ×3 (12:26→21:42)
--- NOTE | 2016-11-09 12:53 | DRAGON STRESS TEST REPORT ---
INTRAVENOUS LEXISCAN CARDIOLITE STRESS TEST USING SINGLE PHOTON EMMISION COMPUTERIZED TOMOGRAPHIC. DATE OF PROCEDURE: November 09, 2016 INDICATION : Chest pain, shortness of breath CARDIAC RISK FACTORS: Hypertension, type 2 diabetes, known CAD RESTING EKG: Sinus rhythm, LVH with nonspecific T inversion STRESS EKG: No significant changes noted with LexiScan bolus REASON FOR TERMINATION: Protocol. PROCEDURE REPORT: Baseline heart rate [63] beats per minute with blood pressure of [120/93]. Patient had no significant complaints. Heart rate at 2 minutes post bolus [116] with a blood pressure of [148/87]. 3 minutes post bolus heart rate [111] with blood pressure of [144/88]. No significant EKG changes were noted. Patient had no significant complaints during the procedure or postprocedure. Patient injected with Aminophyllin 75 mg at 3 minutes or later after Lexiscan bolus. CONCLUSIONS: Normal EKG and hemodynamic response to IV LexiScan. NUCLEAR DATA: At rest the patient was given 14.57 millicuries of technetium 99 sestamibi injected intravenously. As per protocol rest gated SPECT images were obtained. Subsequently the patient was given intravenous LexiScan at a dose of 0.4 mg in 5 mL intravenously, followed by flush with normal saline. Subsequently the stress dose of 45.2 millicuries of technetium 99 sestamibi was injected intravenously. As per protocol stress gated images were obtained. NUCLEAR INTERPRETATION: Both raw and processed data were used for interpretation. Visual, qualitative, computer-generated quantitative data was used. There was good myocardial uptake of technetium compound. Motion artifact and soft tissue attenuations were noted. Increased visceral uptake was noted. Decreased uptake was noted both in rest and stress images consistent with predominantly a moderate to severe fixed defect or scar with minimal area of surrounding ischemia. LVH was noted. EKG gated imaging showed LV EF at 24 %, rest and stress gated EF similar visually. T. I D. ratio was 1.05 lung heart ratio noted to be within normal limits 0.29. No significant extracardiac and abnormal radiotracer activities were noted. RV free wall uptake was noted to be increased. IMPRESSION: Also refer to comments under nuclear interpretation. Also test results needs to be interpreted in the context of pretest probability. 1. Predominantly moderate to severe fixed defect noted in the inferior wall with minimal area of surrounding ischemia. When compared to prior stress test from February 2016, this is relatively unchanged. 2. LVH noted. Increased RV uptake noted. 3. EKG gated imaging shows left ejection fraction of approximately 24 %. Clinical correlation requested with echo derived LVEF since it can be falsely low in patients with LVH. 4. Clinical correlation requested as occasionally single vessel disease or balanced ischemia could be missed. In approximately 10% of the cases Lexiscan may not cause adequate vasodilatory stress. RECOMMENDATIONS: Aggressive risk factor modification, medical therapy. Clinical correlation with echocardiogram derived ejection fraction. Inability to exercise by itself can lead to increased cardiovascular event risks. Consider cardiology consultation and or follow-up if clinically indicated. I AM AVAILABLE FOR CARDIOLOGY CONSULTATION AND FOLLOWUP IF REQUESTED BY PMD Jenifer Khan M.D., JASON Service Engineer champion of sustainable design, Board certified in cardiovascular diseases, Nuclear cardiology, Echocardiography Cardiac CT and cardiac MRI Ph. [phone] [facility]ENTERSimon
[2016-11-09] MEDS: OXYCODONE HCL IR 5 MG TABLET PO PRN ×2 (14:07→21:34)
[2016-11-09] MEDS ORDERED: NITROGLYCERIN/D5W 250 ML IV PRN (15:21)
--- NOTE | 2016-11-09 17:14 | PDOC PROGRESS REPORT ---
Subjective Progress Note for:: 11/09/16 Subjective:: reason for visit: f/u HTN, chest pain hospital course: SHARON JERONIMO is a 46 year old male presents to the ED from home with unrelenting, recurring substernal chest pain radiating into Rt chest, sharp, stabbing in nature, asct'd with intense global dull aching APPLE, some better with NTG, no exac factors and no other asct'd symptoms. 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 he has known refractory HTN requiring admission to this hospital in the past and needs a high dose multidrug regimen to get his BPs <200/100 and they are never "normal" . He took his BP last night during the first episode and found 252/169. he underwent stress test 02/2016f inding of fixed inferior defect, low EF at 31% and RVH. echo also performed at that time shows LAE, low nl EF 50%, other findings on chart. eval in ED shows elevated BPs but initial Ranjith neg and ECG shows no acute changes when compared to prior. we were asked to admit for further investigation and treatment. he underwent stress test this morning thta just shows the old scar with fixed defect but no new ischemic changes; echo shows LVH. Ranjith negative though they did creep up a bit. His BP remains markedly elevated in spite of multi drug regimen. ROS: still has APPLE controlled with oral meds and occasional chest pressure when his BP is at its highest otherwise he has no complaints to me at present. He is very anxious about his BP and worried about stroke and OR. Physical Exam Vital Signs: Temp Pulse Resp BP Pulse Ox 97.6 F 88 16 108/102 H 98 11/09/16 16:40 11/09/16 16:40 11/09/16 16:40 11/09/16 16:40 11/09/16 16:40 Intake & Output 11/08/16 11/09/16 11/10/16 06:59 06:59 06:59 Intake Total 622 Output Total 0 Balance 622 General appearance: PRESENT: no acute distress, cooperative Head exam: PRESENT: atraumatic Eye exam: ABSENT: conjunctival injection, scleral icterus Mouth exam: PRESENT: moist, neck supple Neck exam: PRESENT: full ROM. ABSENT: carotid bruit, JVD, tenderness, thyromegaly Respiratory exam: PRESENT: clear to auscultation bernardo. ABSENT: accessory muscle use Cardiovascular exam: PRESENT: RRR, systolic murmur Pulses: PRESENT: normal carotid pulses, normal radial pulses GI/Abdominal exam: PRESENT: normal bowel sounds, soft. ABSENT: tenderness Extremities exam: ABSENT: calf tenderness, pedal edema Musculoskeletal exam: PRESENT: ambulatory, full ROM Neurological exam: PRESENT: alert, awake, oriented to person, oriented to place , oriented to time, oriented to situation Psychiatric exam: PRESENT: anxious, normal mood Skin exam: PRESENT: dry, warm Results Laboratory Results: 11/08/16 16:04 11/08/16 16:04 11/08/16 11/09/16 11/09/16 16:04 05:35 05:35 Creatinine 0.93 Est GFR ( Amer) > 60 Est GFR (Non-Af Amer) > 60 Triglycerides 121 Cholesterol 223.75 H LDL Cholesterol Direct 138 H VLDL Cholesterol 24.0 HDL Cholesterol 54 TSH 2.11 11/08/16 11/08/16 11/09/16 16:04 22:49 05:35 CK-MB (CK-2) 0.66 0.59 0.61 Troponin I 0.016 0.015 0.013 Impressions: Chest X-Ray 11/08/16 10:49 IMPRESSION: Stable cardiomegaly. No focal infiltrates. Assessment & Plan - Diagnosis (1) Chest pain Qualifiers: Chest pain type: unspecified Qualified Code(s): R07.9 - Chest pain, unspecified Is this a current diagnosis for this admission?: YesPlan: ruled out for acute ischemia with serial enzymes, echo and stress test. likely related to his elevated BP. (2) Accelerated hypertension Is this a current diagnosis for this admission?: YesPlan: he is failing multidrug regimen; will move to ICU and start nitro gtt, chg to labetalol, continue clonidine to prevent rebound HTN and tachy, continue ACEi for LVH and diuretic titrating to effect with goal SBP <170 and DBP 95-105. case discussed [facility] dr ruby macario of the old record shows he ruled for primary/secondary hyperaldosteronism and PRINCESS by lab testing and us doppler (3) Headache Qualifiers: Headache type: other drug induced headache Intractability: not intractable Qualified Code(s): G44.40 - Drug-induced headache, not elsewhere classified, not intractable Is this a current diagnosis for this admission?: Yes (4) Plaque psoriasis Is this a current diagnosis for this admission?: Yes (5) Status post ventricular septal defect closure Is this a current diagnosis for this admission?: Yes - Time Time Spent with patient: 35 or more minutes Medications reviewed and adjusted accordingly: Yes Anticipated discharge: Home Within: within 72 hours
--- NOTE | 2016-11-09 18:13 | XCELERA REPORT ---
[address] [address] Transthoracic Echocardiogram Report Name: SHARON JERONIMO Age: 46 yrs Gender: Male : 1970 Patient Status: Inpatient Patient Location: [id number]\S\301\S\A Study Date: 11/09/2016 08:41 AM Height: 71 in Weight: 251 lb BSA: 2.3 m2 Procedure: A complete two-dimensional transthoracic echocardiogram was performed (2D, M-mode, spectral and color flow Doppler). The study was technically adequate with some images being suboptimal in quality. Reason For Study: hx VSD; CP, SOB Ordering Physician: MELQUIADES GALLEGOS Performed By: Diana Ralph Interpretation Summary The Ejection Fraction estimate is 50-55% There is moderate concentric left ventricular hypertrophy. The left ventricle is grossly normal size. Doppler measurements suggest reversible restrictive left ventricular relaxation, which is associated with grade III/IV or moderate diastolic dysfunction Wall motion cannot be accurately commented on, but no definite regional wall motion abnormalities noted. The right ventricular systolic function is normal. The left atrium is moderately dilated. The right atrium is normal in size There is no mitral valve stenosis. There is a mild to moderate amount of mitral regurgitation There is no aortic valve stenosis There is a mild to moderate amount of aortic regurgitation There is a trace to mild amount of tricuspid regurgitation Right ventricular systolic pressure is estimated to be elevated at 30- 40mmHg. There is mild pulmonary hypertension by echo The aortic root is not well visualized. The inferior vena cava appeared normal and decreased > 50% with respiration (RAP 5-10 mmHg) There is no pericardial effusion. MMode/2D Measurements \T\ Calculations RVDd: 2.9 cm LVIDd: 5.3 cmFS: 27.9 % Ao root diam: 3.6 cm IVSd: 1.4 cm LVIDs: 3.8 cmEDV(Teich): 133.7 ml LVPWd: 1.4 cmESV(Teich): 62.0 ml Ao root area: 10.2 cm2 EF(Teich): 53.6 % LA dimension: 4.3 cm LVOT diam: 2.3 cm LVOT area: 4.3 cm2 Doppler Measurements \T\ Calculations MV E max bishnu: MV P1/2t max bishnu: Ao V2 max: LV V1 max P.9 cm/sec 163.4 cm/sec 150.7 cm/sec 4.9 mmHg MV A max bishnu: MV P1/2t: 44.6 msec Ao max PG: LV V1 max: 55.9 cm/sec MVA(P1/2t): 4.9 cm2 9.1 mmHg 110.8 cm/sec MV E/A: 2.9 MV dec slope: WILLAM(V,D): 3.1 cm2 1072 cm/sec2 PA V2 max: TR max bishnu: 92.3 cm/sec 280.2 cm/sec PA max P.4 mmHgTR max P.4 mmHg Left Ventricle The left ventricle is grossly normal size. There is moderate concentric left ventricular hypertrophy. The Ejection Fraction estimate is 50-55%. Doppler measurements suggest reversible restrictive left ventricular relaxation, which is associated with grade III/IV or moderate diastolic dysfunction. Wall motion cannot be accurately commented on, but no definite regional wall motion abnormalities noted. Right Ventricle The right ventricle is normal in size, thickness and function. There is normal right ventricular wall thickness. The right ventricular systolic function is normal. Atria The right atrium is normal in size. The left atrium is moderately dilated. Interarterial septum not well visualized and not well dopplered. Cannot comment on ASD/PFO presence. Mitral Valve The mitral valve leaflets are sclerotic and show some degree of functional abnormality. There is no mitral valve stenosis. There is a mild to moderate amount of mitral regurgitation. Aortic Valve The aortic valve is sclerotic, but shows no functional abnormality. There is no aortic valve stenosis. There is a mild to moderate amount of aortic regurgitation. Tricuspid Valve The tricuspid valve is not well visualized secondary to technical limitations. There is no tricuspid stenosis. There is a trace to mild amount of tricuspid regurgitation. Right ventricular systolic pressure is estimated to be elevated at 30-40mmHg. There is mild pulmonary hypertension by echo. Pulmonic Valve The pulmonic valve is not well visualized. Great Vessels The aortic root is not well visualized. The inferior vena cava appeared normal and decreased > 50% with respiration (RAP 5-10 mmHg). Effusions There is no pericardial effusion. : MELQUIADES GALLEGOS > Jenifer Khan
[2016-11-09] MEDS ORDERED: NICARDIPINE HCL RTU, ISO-OS 20 MG/200 ML RTUINJ IV PRN (19:29)
[2016-11-09] MEDS ORDERED: ISOSORBIDE MONONITRATE 60 MG TAB.ER.24H PO ONE (20:00)
[2016-11-09] MEDS ORDERED: AMLODIPINE BESYLATE 10 MG TABLET PO ONE (20:00)
[2016-11-09] MEDS: LABETALOL HCL 200 MG TABLET PO SCH (21:33)
[2016-11-09] MEDS: ATORVASTATIN CALCIUM 80 MG TABLET PO SCH (21:34)
[2016-11-09] MEDS ORDERED: LABETALOL HCL 200 MG TABLET PO SCH (22:00)
[2016-11-10] MEDS: LABETALOL HCL 200 MG TABLET PO SCH ×2 (05:20→14:33)
[2016-11-10] MEDS: HYDRALAZINE HCL 50 MG TABLET PO SCH ×3 (05:20→22:20)
[2016-11-10] MEDS: CLONIDINE HCL 0.2 MG TABLET PO SCH ×3 (05:20→22:20)
[2016-11-10] MEDS: LANSOPRAZOLE 30 MG TAB.RAP.DR PO SCH (05:22)
[2016-11-10] MEDS ORDERED: NORMAL SALINE 1000 ML 250 ML IV ONE (05:39)
[2016-11-10] MEDS: ENOXAPARIN SODIUM INJ 40 MG/0.4 ML DISP.SYRIN SUBCUT SCH (08:18)
[2016-11-10 08:33] LABS: ABSOLUTE LYMPHOCYTES (AUTO) 0.9 10^3/uL (0.5-4.7); ABSOLUTE MONOCYTES (AUTO) 0.3 10^3/uL (0.1-1.4); ABSOLUTE NEUT (AUTO) 5.4 10^3/uL (1.7-8.2); BASOPHILS % (AUTO) 0.7 % (0-2); EOSINOPHILS % (AUTO) 0.5 % (0-6); HEMATOCRIT 36.6 % (37.9-51.0); HEMOGLOBIN 12.3 g/dL (13.5-17.0); HGB HCT DIFFERENCE 0.3; LYMPHOCYTES % (AUTO) 13.7 % (13-45); MEAN CORPUSCULAR HEMOGLOBIN 28.9 pg (27.0-33.4); MEAN CORPUSCULAR HGB CONC 33.7 g/dL (32.0-36.0); MEAN CORPUSCULAR VOLUME 86 fl (80-97); MONOCYTES % (AUTO) 4.4 % (3-13); RED BLOOD COUNT 4.27 10^6/uL (4.35-5.55); SEGMENTED NEUTROPHILS % (AUTO) 80.7 % (42-78); WHITE BLOOD COUNT 6.7 10^3/uL (4.0-10.5)
[2016-11-10 08:50] LABS: ALANINE AMINOTRANSFERASE 23 U/L (21-72); ALBUMIN 3.3 g/dL (3.5-5.0); ALKALINE PHOSPHATASE 66 U/L (38-126); ANION GAP 7 (5-19); ASPARTATE AMINO TRANSFERASE 13 U/L (17-59); BILIRUBIN,DIRECT 0.4 mg/dL (0.0-0.4); BILIRUBIN,TOTAL 0.7 mg/dL (0.2-1.3); BLOOD UREA NITROGEN 25 mg/dL (7-20); CALCIUM 8.8 mg/dL (8.4-10.2); CARBON DIOXIDE 28 mmol/L (22-30); CHLORIDE 98 mmol/L (98-107); CREATININE RESULT 1.37 mg/dL (0.52-1.25); GLUCOSE 223 mg/dL (75-110); MAGNESIUM 1.7 mg/dL (1.6-2.3); PHOSPHORUS 4.2 mg/dL (2.5-4.5); POTASSIUM 4.9 mmol/L (3.6-5.0); SODIUM 132.9 mmol/L (137-145); TOTAL PROTEIN 6.6 g/dL (6.3-8.2)
[2016-11-10] MEDS ORDERED: DEXAMETHASONE SOD PHOS INJ 10 MG/1 ML VIAL IV ONE (09:12)
[2016-11-10] MEDS ORDERED: AMLODIPINE BESYLATE 10 MG TABLET PO SCH (10:00)
[2016-11-10] MEDS: ASPIRIN 325 MG TABLET, ENT COATED PO SCH (10:14)
[2016-11-10] MEDS: NORMAL SALINE 1000 ML 1,000 ML IV PRN ×3 (10:14→22:22)
[2016-11-10] MEDS: LISINOPRIL 10 MG TABLET PO SCH ×2 (10:17→22:19)
[2016-11-10] MEDS: ISOSORBIDE MONONITRATE 60 MG TAB.ER.24H PO SCH (10:17)
[2016-11-10] MEDS ORDERED: DEXAMETHASONE SOD PHOSPHATE 20 MG in DEXTROSE 5%-WATER 50 ML IV ONE (11:00)
--- NOTE | 2016-11-10 11:15 | PDOC PROGRESS REPORT ---
Subjective Progress Note for:: 11/10/16 Subjective:: reason for visit: f/u HTN, chest pain hospital course: SHARON JERONIMO is a 46 year old male presents to the ED from home with unrelenting, recurring substernal chest pain radiating into Rt chest, sharp, stabbing in nature, asct'd with intense global dull aching APPLE, some better with NTG, no exac factors and no other asct'd symptoms. 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 he has known refractory HTN requiring admission to this hospital in the past and needs a high dose multidrug regimen to get his BPs <200/100 and they are never "normal" . He took his BP last night during the first episode and found 252/169. he underwent stress test 02/2016f inding of fixed inferior defect, low EF at 31% and RVH. echo also performed at that time shows LAE, low nl EF 50%, other findings on chart. eval in ED shows elevated BPs but initial Ranjith neg and ECG shows no acute changes when compared to prior. we were asked to admit for further investigation and treatment. he underwent stress test this morning that just shows the old scar with fixed defect but no new ischemic changes; echo shows LVH. Ranjith negative though they did creep up a bit. His BP remains markedly elevated in spite of multi drug regimen. moved to the ICU and started on nitro gtt that dr beltran changed to cardene which only tolerated for a <30mins before rapid drop in his pressure, in fact was hypotensive for a period of time overnight and seems to be recovering now. ROS: feels terrible now that we have normalized his BP, just washed out and tired, aching all over, dizzy with change in position but denies chest pain/ pressure, APPLE, vision changes, tinnitus, abd pain, N/V/D, total 10 systems reviewed, remaining systems negative. Physical Exam Vital Signs: Temp Pulse Resp BP Pulse Ox 98.4 F 56 L 22 H 123/69 94 11/10/16 08:00 11/10/16 07:00 11/10/16 10:00 11/10/16 09:57 11/10/16 10:00 Intake & Output 05/11/10/16 11/11/16 06:59 06:59 06:59 Intake Total 1218 Output Total 400 Balance 818 Weight 114.4 kg General appearance: PRESENT: no acute distress, obese, well-developed, well- nourished Head exam: PRESENT: atraumatic, normocephalic Eye exam: PRESENT: EOMI, PERRLA. ABSENT: conjunctival injection, scleral icterus Neck exam: PRESENT: full ROM. ABSENT: JVD, tenderness Respiratory exam: PRESENT: clear to auscultation bernardo, unlabored. ABSENT: accessory muscle use Cardiovascular exam: PRESENT: bradycardia, systolic murmur Pulses: PRESENT: normal carotid pulses, normal radial pulses Vascular exam: PRESENT: normal capillary refill GI/Abdominal exam: PRESENT: normal bowel sounds, soft. ABSENT: tenderness Extremities exam: PRESENT: full ROM. ABSENT: calf tenderness, pedal edema Musculoskeletal exam: PRESENT: ambulatory, full ROM Neurological exam: PRESENT: alert, awake, oriented to person, oriented to place , oriented to time, oriented to situation Psychiatric exam: PRESENT: appropriate affect, normal mood Skin exam: PRESENT: dry, warm Results Laboratory Results: 11/10/16 08:23 11/10/16 08:23 11/10/16 11/10/16 08:23 08:23 WBC 6.7 RBC 4.27 L Hgb 12.3 L Hct 36.6 L MCV 86 MCH 28.9 MCHC 33.7 RDW 15.0 H Plt Count 204 Seg Neutrophils % 80.7 H Lymphocytes % 13.7 Monocytes % 4.4 Eosinophils % 0.5 Basophils % 0.7 Absolute Neutrophils 5.4 Absolute Lymphocytes 0.9 Absolute Monocytes 0.3 Absolute Eosinophils 0.0 Absolute Basophils 0.0 Sodium 132.9 L Potassium 4.9 Chloride 98 Carbon Dioxide 28 Anion Gap 7 BUN 25 H Creatinine 1.37 H Est GFR ( Amer) > 60 Est GFR (Non-Af Amer) 56 L Glucose 223 H Calcium 8.8 Phosphorus 4.2 Magnesium 1.7 Total Bilirubin 0.7 AST 13 L ALT 23 Alkaline Phosphatase 66 Total Protein 6.6 Albumin 3.3 L 11/08/16 11/08/16 11/09/16 16:04 22:49 05:35 CK-MB (CK-2) 0.66 0.59 0.61 Troponin I 0.016 0.015 0.013 Impressions: Chest X-Ray 11/08/16 10:49 IMPRESSION: Stable cardiomegaly. No focal infiltrates. Assessment & Plan - Diagnosis (1) Chest pain Qualifiers: Chest pain type: unspecified Qualified Code(s): R07.9 - Chest pain, unspecified Is this a current diagnosis for this admission?: YesPlan: resolved; ruled out for acute ischemia with serial enzymes, echo and stress test. likely related to his elevated BP. (2) Accelerated hypertension Is this a current diagnosis for this admission?: YesPlan: markedly improved with multi-drug regimen, all gtts off for the last 12 hours. continue same. case discussed [facility] dr ruby macario of the old record shows he ruled for primary/secondary hyperaldosteronism and PRINCESS by lab testing and us doppler (3) Headache Qualifiers: Headache type: other drug induced headache Intractability: not intractable Qualified Code(s): G44.40 - Drug-induced headache, not elsewhere classified, not intractable Is this a current diagnosis for this admission?: YesPlan: resolved (4) Plaque psoriasis Is this a current diagnosis for this admission?: Yes (5) Status post ventricular septal defect closure Is this a current diagnosis for this admission?: Yes - Time Time Spent with patient: 25-34 minutes Anticipated discharge: Home Within: within 48 hours
[2016-11-10] MEDS: INSULIN LISPRO 100 UNIT/ML 3 ML VIAL SUBCUT PRN ×2 (17:01→22:29)
--- NOTE | 2016-11-10 17:44 | EKG REPORT ---
SEVERITY:- ABNORMAL ECG - SINUS RHYTHM PROBABLE LEFT ATRIAL ABNORMALITY LEFT AXIS DEVIATION ABNORMAL T, CONSIDER ISCHEMIA, ANT-LAT LEADS : Confirmed by: Loyda Fernandes MD 10-Nov-2016 17:43:55
--- NOTE | 2016-11-10 17:44 | EKG REPORT ---
SEVERITY:- ABNORMAL ECG - SINUS RHYTHM PROBABLE LEFT ATRIAL ABNORMALITY LAD, CONSIDER LEFT ANTERIOR FASCICULAR BLOCK ABNORMAL T, CONSIDER ISCHEMIA, ANT-LAT LEADS : Confirmed by: Loyda Fernandes MD 10-Nov-2016 17:44:01
[2016-11-10] MEDS: ATORVASTATIN CALCIUM 80 MG TABLET PO SCH (22:20)
[2016-11-11] MEDS: LABETALOL HCL 200 MG TABLET PO SCH ×4 (01:00→21:21)
[2016-11-11 04:57] LABS: HEMATOCRIT 37.2 % (37.9-51.0); HEMOGLOBIN 12.5 g/dL (13.5-17.0); HGB HCT DIFFERENCE 0.3; MEAN CORPUSCULAR HEMOGLOBIN 29.3 pg (27.0-33.4); MEAN CORPUSCULAR HGB CONC 33.7 g/dL (32.0-36.0); MEAN CORPUSCULAR VOLUME 87 fl (80-97); RED BLOOD COUNT 4.28 10^6/uL (4.35-5.55); RED CELL DISTRIBUTION WIDTH 15.2 % (11.5-14.0); WHITE BLOOD COUNT 8.4 10^3/uL (4.0-10.5)
[2016-11-11 05:23] LABS: ANION GAP 10 (5-19); BLOOD UREA NITROGEN 21 mg/dL (7-20); CALCIUM 8.8 mg/dL (8.4-10.2); CARBON DIOXIDE 23 mmol/L (22-30); CHLORIDE 103 mmol/L (98-107); CREATININE RESULT 0.98 mg/dL (0.52-1.25); GLUCOSE 283 mg/dL (75-110); POTASSIUM 4.8 mmol/L (3.6-5.0); SODIUM 135.5 mmol/L (137-145)
[2016-11-11] MEDS: CLONIDINE HCL 0.2 MG TABLET PO SCH ×3 (05:29→21:22)
[2016-11-11] MEDS: LANSOPRAZOLE 30 MG TAB.RAP.DR PO SCH (05:29)
[2016-11-11] MEDS: HYDRALAZINE HCL 50 MG TABLET PO SCH ×3 (05:30→21:21)
[2016-11-11] MEDS: OXYCODONE HCL IR 5 MG TABLET PO PRN (05:34)
[2016-11-11] MEDS: NORMAL SALINE 1000 ML 1,000 ML IV PRN (05:36)
[2016-11-11] MEDS: OXYCODONE-ACETAMINOPHEN 5-325 MG TABLET PO PRN (09:15)
[2016-11-11] MEDS: AMLODIPINE BESYLATE 10 MG TABLET PO SCH ×2 (09:17→21:23)
[2016-11-11] MEDS: LISINOPRIL 10 MG TABLET PO SCH ×2 (09:17→21:21)
[2016-11-11] MEDS: ISOSORBIDE MONONITRATE 60 MG TAB.ER.24H PO SCH (09:17)
[2016-11-11] MEDS: ASPIRIN 325 MG TABLET, ENT COATED PO SCH (09:17)
[2016-11-11] MEDS: INSULIN LISPRO 100 UNIT/ML 3 ML VIAL SUBCUT PRN ×4 (09:23→21:23)
[2016-11-11] MEDS: ENOXAPARIN SODIUM INJ 40 MG/0.4 ML DISP.SYRIN SUBCUT SCH (09:24)
[2016-11-11] MEDS ORDERED: METHOTREXATE SODIUM 2.5 MG TABLET PO ONE (10:00)
--- NOTE | 2016-11-11 10:17 | PDOC PROGRESS REPORT ---
Subjective Progress Note for:: 11/11/16 Subjective:: reason for visit: f/u HTN, chest pain hospital course: SHARON JERONIMO is a 46 year old male presents to the ED from home with unrelenting, recurring substernal chest pain radiating into Rt chest, sharp, stabbing in nature, asct'd with intense global dull aching APPLE, some better with NTG, no exac factors and no other asct'd symptoms. 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 he has known refractory HTN requiring admission to this hospital in the past and needs a high dose multidrug regimen to get his BPs <200/100 and they are never "normal" . He took his BP last night during the first episode and found 252/169. he underwent stress test 02/2016f inding of fixed inferior defect, low EF at 31% and RVH. echo also performed at that time shows LAE, low nl EF 50%, other findings on chart. eval in ED shows elevated BPs but initial Ranjith neg and ECG shows no acute changes when compared to prior. we were asked to admit for further investigation and treatment. he underwent stress test that just shows the old scar with fixed defect but no new ischemic changes; echo shows LVH. Ranjith negative though they did creep up a bit. His BP remained markedly elevated in spite of multi drug regimen so moved to the ICU and started on nitro gtt that dr beltran changed to cardene which he only tolerated for a <30mins before rapid drop in his pressure, in fact was hypotensive for a period of time overnight. overall trend is back up but many of his oral meds weren't administered during the hypotension and about 12-15 hours recovery period afterward. ROS: overall ffeels better but still having sternal chest wall pain and still very anxious about his BPs but denies chest pain/pressure, APPLE, vision changes, tinnitus, abd pain, N/V/D, total 10 systems reviewed, remaining systems negative. Physical Exam Vital Signs: Temp Pulse Resp BP Pulse Ox 97.5 F 79 18 171/105 H 96 11/11/16 07:36 11/11/16 07:36 11/11/16 07:36 11/11/16 07:36 11/11/16 07:36 Intake & Output 11/10/16 11/11/16 11/12/16 06:59 06:59 06:59 Intake Total 2543 Output Total 2100 Balance 443 Weight 115.7 kg General appearance: PRESENT: no acute distress, obese, well-developed, well- nourished Head exam: PRESENT: atraumatic, normocephalic Eye exam: PRESENT: EOMI. ABSENT: conjunctival injection, scleral icterus Mouth exam: PRESENT: moist, neck supple Neck exam: ABSENT: carotid bruit, JVD, tenderness Respiratory exam: PRESENT: clear to auscultation bernardo, unlabored. ABSENT: accessory muscle use Cardiovascular exam: PRESENT: RRR. ABSENT: systolic murmur Pulses: PRESENT: normal carotid pulses, normal radial pulses GI/Abdominal exam: PRESENT: normal bowel sounds, soft. ABSENT: tenderness Extremities exam: ABSENT: calf tenderness, pedal edema Musculoskeletal exam: PRESENT: tenderness - chest wall tenderness to palpation along the sternal border that reproduces the pain he presented with initially Neurological exam: PRESENT: alert, awake, oriented to person, oriented to place , oriented to time, oriented to situation Psychiatric exam: PRESENT: appropriate affect, normal mood Skin exam: PRESENT: warm. ABSENT: dry Results Laboratory Results: 11/11/16 03:44 11/11/16 03:44 11/11/16 11/11/16 03:44 03:44 WBC 8.4 RBC 4.28 L Hgb 12.5 L Hct 37.2 L MCV 87 MCH 29.3 MCHC 33.7 RDW 15.2 H Plt Count 174 Sodium 135.5 L Potassium 4.8 Chloride 103 Carbon Dioxide 23 Anion Gap 10 BUN 21 H Creatinine 0.98 Est GFR ( Amer) > 60 Est GFR (Non-Af Amer) > 60 Glucose 283 H Calcium 8.8 Assessment & Plan - Diagnosis (1) Chest pain Qualifiers: Chest pain type: chest pain on breathing Qualified Code(s): R07.1 - Chest pain on breathing Is this a current diagnosis for this admission?: YesPlan: no better and c/w costochondritis; trial of ketorolac (2) Accelerated hypertension Is this a current diagnosis for this admission?: YesPlan: worse again, continue to titrate his regimen with dr beltran's assistance (3) Headache Qualifiers: Headache type: other drug induced headache Intractability: not intractable Qualified Code(s): G44.40 - Drug-induced headache, not elsewhere classified, not intractable Is this a current diagnosis for this admission?: YesPlan: resolved (4) Plaque psoriasis Is this a current diagnosis for this admission?: YesPlan: resume his MTX, missed his dose this past Wed (5) Status post ventricular septal defect closure Is this a current diagnosis for this admission?: Yes - Time Time Spent with patient: 25-34 minutes Medications reviewed and adjusted accordingly: Yes Anticipated discharge: Home Within: within 48 hours
[2016-11-11] MEDS ORDERED: KETOROLAC TROMETHAMINE INJ/PF 30 MG/1 ML SDV IV ONE (11:30)
[2016-11-11] MEDS ORDERED: BUMETANIDE INJ/PF 1 MG/4 ML SDV IV ONE (15:00)
--- NOTE | 2016-11-11 16:17 | PDOC PROGRESS REPORT ---
Subjective Progress Note for:: 11/09/16 Subjective:: Patient seems to be doing better with gradual improvement. Pressure however is still elevated. Cardiac enzymes has come back negative. Pt is denying any chest arm or neck discomfort. Patient denying any PND, orthopnea. Patient denied any sustained palpitations, dizziness, syncope, near syncope. Patient denying any fever chills. Patient denying any other significant discomfort. Patient is maintaining sinus rhythm. Review of systems: Rest review of systems negative. Medications: Medications have been reviewed. Nuclear stress test procedure was explained to the patient in detail. Risks benefits were discussed and informed consent was obtained. Alternatives were discussed. Patient informed that based on risk factors, physical exam, lab data findings and symptoms there is at least intermediate probability of underlying CAD. Nuclear stress test procedure was therefore scheduled. Physical Exam Vital Signs: Temp Pulse Resp BP Pulse Ox 98.5 F 82 18 183/118 H 95 11/09/16 11:15 11/09/16 11:15 11/09/16 11:15 11/09/16 11:15 11/09/16 11:15 Exam: GENERAL: well-nourished and in no acute distress. Alert and oriented x3 HEAD: Atraumatic, normocephalic. EYES: Pupils equal round and reactive to light, extraocular movements intact, sclera anicteric, conjunctiva are normal. ENT: TMs normal, nares patent, oropharynx clear without exudates. Moist mucous membranes. No oral ulcerations or bleeding gums noted NECK: supple without lymphadenopathy. Trachea is central. No cervical or axillary lymphadenopathy noted. Carotids are 2+, JVD WNL LUNGS: Respiration seems nonlabored, no significant accessory muscle action noted. Breath sounds clear to auscultation bilaterally and equal noted. No wheezes rales or rhonchi noted. No significant dullness noted on percussion. CHEST: Palpation of the chest wall shows no significant chest wall tenderness. No other significant abnormalities noted. 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 ABDOMEN: Soft, no significant tenderness appreciated, normoactive bowel sounds. No guarding, no rebound. No rigidity noted . No masses appreciated. EXTREMITIES: Pedal pulses are 1-2+, no calf tenderness noted. No clubbing or cyanosis.trace to 1+ pedal edema noted NEUROLOGICAL: Focused neurological exam showed no significant neurologic deficit. Normal speech, no focal weakness appreciated. PSYCH: Normal mood, normal affect. Judgment and insight within normal limits. SKIN: No significant ecchymosis, psoriatic rash and dermatitis rash noted, no ulcerations or signs of pruritus noted. MUSCULOSKELETAL EXAM: No significant joint swelling noted. Results Laboratory Results: 11/08/16 16:04 11/08/16 16:04 11/08/16 11/08/16 11/09/16 16:04 16:04 05:35 WBC 5.1 RBC 4.78 Hgb 13.7 Hct 40.9 MCV 86 MCH 28.7 MCHC 33.6 RDW 15.1 H Plt Count 206 Creatinine 0.93 Est GFR ( Amer) > 60 Est GFR (Non-Af Amer) > 60 Triglycerides 121 Cholesterol 223.75 H LDL Cholesterol Direct 138 H VLDL Cholesterol 24.0 HDL Cholesterol 54 TSH 11/09/16 05:35 WBC RBC Hgb Hct MCV MCH MCHC RDW Plt Count Creatinine Est GFR ( Amer) Est GFR (Non-Af Amer) Triglycerides Cholesterol LDL Cholesterol Direct VLDL Cholesterol HDL Cholesterol TSH 2.11 11/08/16 11/08/16 11/09/16 16:04 22:49 05:35 CK-MB (CK-2) 0.66 0.59 0.61 Troponin I 0.016 0.015 0.013 EKG Comments: Sinus rhythm, LVH with secondary ST-T wave changes noted. Impressions: Chest X-Ray 11/08/16 10:49 IMPRESSION: Stable cardiomegaly. No focal infiltrates. Assessment & Plan - Diagnosis (1) Chest pain Qualifiers: Chest pain type: chest pain on breathing Qualified Code(s): R07.1 - Chest pain on breathing Is this a current diagnosis for this admission?: Yes (2) Hypertensive emergency Is this a current diagnosis for this admission?: Yes (3) Dyspnea Qualifiers: Dyspnea type: unspecified Qualified Code(s): R06.00 - Dyspnea, unspecified (4) Diabetes mellitus Qualifiers: Diabetes mellitus type: type 2 Diabetes mellitus complication status: with unspecified complications Is this a current diagnosis for this admission?: Yes (6) HLD (hyperlipidemia) Qualifiers: Hyperlipidemia type: other hyperlipidemia Qualified Code(s): E78.4 - Other hyperlipidemia Is this a current diagnosis for this admission?: Yes - Notes Notes: Chest pain: Patient claims chest pain is improved. This was evaluated with a nuclear stress test. Nuclear stress test was negative for any significant areas of ischemia or any significant areas of scar. The nuclear stress test is felt to be relatively low risk. Patient informed that occasionally single- vessel disease and balanced ischemia could be missed. Patient advised aggressive risk factor modification and medical therapy. Patient informed that further evaluation may become necessary if symptoms worsens or there is a development of new symptoms indicative of angina or angina equivalent symptom. Hypertensive emergency: Blood pressure still high but coming under better control. Medications are being adjusted. Patient was placed on increased dose of labetalol, Norvasc, Imdur and subsequently also ordered nicardipine drip. Blood pressure goal in this young patient with CAD is 135/85 or less. Dyspnea: This has improved. Diabetes: Currently stable. Status post VSD closure: Currently stable. Hyperlipidemia: LDL goal is less than 70. Recommend statin therapy at least intermediate or high dose, of high potency status. Periodic lipid panel and liver panel is indicated. Patient to report any significant muscle discomfort or other side effects. - Time Time with patient: Greater than 35 minutes - Patient was seen evening. He was transferred to the unit for severe hypertension. Medication changes were performed. See order sheet. CODE STATUS was discussed, patient remains full code. Surrogate decision-maker not identified. Multiple medical problems were addressed. More than 50% of the time spent coordinating care, discussing management plans with involved caregivers. Management plans discussed with involved personnels. Medical decision making was of moderate to high complexity , patient's has multiple comorbidities. Medications reviewed and adjusted accordingly: Yes - Multiple medication changes performed
--- NOTE | 2016-11-11 16:23 | PDOC PROGRESS REPORT ---
Subjective Progress Note for:: 11/10/16 Subjective:: Low BP overnight. Multiple medication changes were performed. Several medications were held. Patient claims to be feeling fatigued and tired. Pt is denying any chest arm or neck discomfort. Patient denying any PND, orthopnea. Patient denied any sustained palpitations, dizziness, syncope, near syncope. Patient denying any fever chills. Patient denying any other significant discomfort. Patient is maintaining sinus rhythm. Review of systems: Rest review of systems negative. Medications: Medications have been reviewed. Physical Exam Vital Signs: Temp Pulse Resp BP Pulse Ox 97.9 F 85 28 H 140/87 H 98 11/10/16 16:00 11/10/16 19:30 11/10/16 20:02 11/10/16 20:02 11/10/16 20:02 Intake & Output 11/09/16 11/10/16 11/11/16 06:59 06:59 06:59 Intake Total 1426 Output Total 850 Balance 576 Exam: GENERAL: well-nourished and in no acute distress. Alert and oriented x3 HEAD: Atraumatic, normocephalic. EYES: Pupils equal round and reactive to light, extraocular movements intact, sclera anicteric, conjunctiva are normal. ENT: TMs normal, nares patent, oropharynx clear without exudates. Moist mucous membranes. No oral ulcerations or bleeding gums noted NECK: supple without lymphadenopathy. Trachea is central. No cervical or axillary lymphadenopathy noted. Carotids are 2+, JVD WNL LUNGS: Respiration seems nonlabored, no significant accessory muscle action noted. Breath sounds clear to auscultation bilaterally and equal noted. No wheezes rales or rhonchi noted. No significant dullness noted on percussion. CHEST: Palpation of the chest wall shows no significant chest wall tenderness. No other significant abnormalities noted. 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 ABDOMEN: Soft, no significant tenderness appreciated, normoactive bowel sounds. No guarding, no rebound. No rigidity noted . No masses appreciated. EXTREMITIES: Pedal pulses are 1-2+, no calf tenderness noted. No clubbing or cyanosis.trace to 1+ pedal edema noted NEUROLOGICAL: Focused neurological exam showed no significant neurologic deficit. Normal speech, no focal weakness appreciated. PSYCH: Normal mood, normal affect. Judgment and insight within normal limits. SKIN: No significant ecchymosis, rash, ulcerations or signs of pruritus noted. MUSCULOSKELETAL EXAM: No significant joint swelling noted. Results Impressions: Chest X-Ray 11/08/16 10:49 IMPRESSION: Stable cardiomegaly. No focal infiltrates. Assessment & Plan - Diagnosis (1) Chest pain Qualifiers: Chest pain type: chest pain on breathing Qualified Code(s): R07.1 - Chest pain on breathing Is this a current diagnosis for this admission?: Yes (2) Hypertensive emergency Is this a current diagnosis for this admission?: Yes (3) Dyspnea Qualifiers: Dyspnea type: unspecified Qualified Code(s): R06.00 - Dyspnea, unspecified (4) Diabetes mellitus Qualifiers: Diabetes mellitus type: type 2 Diabetes mellitus complication status: with unspecified complications Is this a current diagnosis for this admission?: Yes (6) HLD (hyperlipidemia) Qualifiers: Hyperlipidemia type: other hyperlipidemia Qualified Code(s): E78.4 - Other hyperlipidemia Is this a current diagnosis for this admission?: Yes - Notes Notes: Chest pain: Myocardial infarction ruled out. Nuclear stress test felt to be low risk. 2D echo results were discussed. Nuclear stress test results were discussed with the patient. Patient questions were answered. Hypertension: Blood pressure now on the low side. Patient started on IV fluids and blood pressure medications are being adjusted. Dyspnea: This is improved Diabetes: Satisfactorily controlled. Dyslipidemia continue statin therapy. Status post VSD closure, stable Obesity: Patient encouraged in weight loss. Sleep disorder: Presence of this being strongly suspected. Patient will benefit from a sleep study. - Time Time with patient: Greater than 35 minutes - CODE STATUS was discussed, patient remains full code. Surrogate decision-maker not identified by the patient. Multiple medical problems were addressed. More than 50% of the time spent coordinating care, discussing management plans with involved caregivers. Management plans discussed with involved personnels. Medical decision making was of moderate to high complexity, patient's has multiple comorbidities. Medications reviewed and adjusted accordingly: Yes
--- NOTE | 2016-11-11 16:30 | PDOC PROGRESS REPORT ---
Subjective Progress Note for:: 11/11/16 Subjective:: Blood pressure now is significantly elevated. Patient feeling overall better than yesterday. It seems he does better when his blood pressure is high. Pt is denying any chest arm or neck discomfort. Patient denying any PND, orthopnea. Patient denied any sustained palpitations, dizziness, syncope, near syncope. Patient denying any fever chills. Patient denying any other significant discomfort. Patient is maintaining sinus rhythm. Review of systems: Rest review of systems negative. Medications: Medications have been reviewed. Physical Exam Vital Signs: Temp Pulse Resp BP Pulse Ox 97.2 F 86 18 168/117 H 100 11/11/16 11:35 11/11/16 14:00 11/11/16 11:35 11/11/16 11:35 11/11/16 11:35 Intake & Output 11/10/16 11/11/16 11/12/16 06:59 06:59 06:59 Intake Total 2543 473 Output Total 2100 0 Balance 443 473 Weight 115.7 kg Exam: GENERAL: well-nourished and in no acute distress. Alert and oriented x3 HEAD: Atraumatic, normocephalic. EYES: Pupils equal round and reactive to light, extraocular movements intact, sclera anicteric, conjunctiva are normal. ENT: TMs normal, nares patent, oropharynx clear without exudates. Moist mucous membranes. No oral ulcerations or bleeding gums noted NECK: supple without lymphadenopathy. Trachea is central. No cervical or axillary lymphadenopathy noted. Carotids are 2+, JVD WNL LUNGS: Respiration seems nonlabored, no significant accessory muscle action noted. Breath sounds clear to auscultation bilaterally and equal noted. No wheezes rales or rhonchi noted. No significant dullness noted on percussion. CHEST: Palpation of the chest wall shows no significant chest wall tenderness. No other significant abnormalities noted. 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 ABDOMEN: Soft, no significant tenderness appreciated, normoactive bowel sounds. No guarding, no rebound. No rigidity noted . No masses appreciated. EXTREMITIES: Pedal pulses are 1-2+, no calf tenderness noted. No clubbing or cyanosis.trace to 1+ pedal edema noted NEUROLOGICAL: Focused neurological exam showed no significant neurologic deficit. Normal speech, no focal weakness appreciated. PSYCH: Normal mood, normal affect. Judgment and insight within normal limits. SKIN: No significant ecchymosis, rash, ulcerations or signs of pruritus noted. MUSCULOSKELETAL EXAM: No significant joint swelling noted. Results Laboratory Results: 11/11/16 03:44 11/11/16 03:44 11/11/16 11/11/16 03:44 03:44 WBC 8.4 RBC 4.28 L Hgb 12.5 L Hct 37.2 L MCV 87 MCH 29.3 MCHC 33.7 RDW 15.2 H Plt Count 174 Sodium 135.5 L Potassium 4.8 Chloride 103 Carbon Dioxide 23 Anion Gap 10 BUN 21 H Creatinine 0.98 Est GFR ( Amer) > 60 Est GFR (Non-Af Amer) > 60 Glucose 283 H Calcium 8.8 Impressions: Chest X-Ray 11/08/16 10:49 IMPRESSION: Stable cardiomegaly. No focal infiltrates. Assessment & Plan - Diagnosis (1) Chest pain Qualifiers: Chest pain type: chest pain on breathing Qualified Code(s): R07.1 - Chest pain on breathing Is this a current diagnosis for this admission?: Yes (2) Hypertensive emergency Is this a current diagnosis for this admission?: Yes (3) Dyspnea Qualifiers: Dyspnea type: unspecified Qualified Code(s): R06.00 - Dyspnea, unspecified (4) Diabetes mellitus Qualifiers: Diabetes mellitus type: type 2 Diabetes mellitus complication status: with unspecified complications Is this a current diagnosis for this admission?: Yes (6) HLD (hyperlipidemia) Qualifiers: Hyperlipidemia type: other hyperlipidemia Qualified Code(s): E78.4 - Other hyperlipidemia Is this a current diagnosis for this admission?: Yes - Notes Notes: Hypertension: Blood pressure control is still a problem. His medical regimen is being simplified. I have been in discussion with hospitalist regarding medication changes. CAD: Patient is status post stent placement in the past but currently stable. Dyspnea: Improved Diabetes: Currently well controlled Status post VSD closure stable Dyslipidemia: Stable Will consider ordering renal artery ultrasound, 24-hour urinary catecholamine excretion etc. Will write handwritten order. - Time Time with patient: 15-25 minutes - CODE STATUS was discussed, patient remains full code. Surrogate decision-maker unchanged. Multiple medical problems were addressed. More than 50% of the time spent coordinating care, discussing management plans with involved caregivers. Management plans discussed with involved personnels. Medical decision making was of moderate to high complexity , patient's has multiple comorbidities. Medications reviewed and adjusted accordingly: Yes
[2016-11-11] MEDS ORDERED: SPIRONOLACTONE 25 MG TABLET PO ONE (18:15)
[2016-11-11] MEDS ORDERED: CHLORTHALIDONE 25 MG TABLET PO ONE (18:15)
[2016-11-11] MEDS: ATORVASTATIN CALCIUM 80 MG TABLET PO SCH (21:22)
[2016-11-12] MEDS: OXYCODONE-ACETAMINOPHEN 5-325 MG TABLET PO PRN ×3 (03:36→20:12)
[2016-11-12] MEDS: CLONIDINE HCL 0.2 MG TABLET PO SCH ×3 (06:00→21:39)
[2016-11-12] MEDS: HYDRALAZINE HCL 50 MG TABLET PO SCH ×3 (06:00→21:38)
[2016-11-12] MEDS: LABETALOL HCL 200 MG TABLET PO SCH ×3 (06:00→21:39)
[2016-11-12] MEDS: LANSOPRAZOLE 30 MG TAB.RAP.DR PO SCH (06:00)
[2016-11-12] MEDS: ENOXAPARIN SODIUM INJ 40 MG/0.4 ML DISP.SYRIN SUBCUT SCH (08:11)
[2016-11-12] MEDS: LISINOPRIL 10 MG TABLET PO SCH ×2 (09:11→21:39)
[2016-11-12] MEDS: ASPIRIN 325 MG TABLET, ENT COATED PO SCH (09:13)
[2016-11-12] MEDS: AMLODIPINE BESYLATE 10 MG TABLET PO SCH ×2 (09:13→21:39)
[2016-11-12] MEDS: SPIRONOLACTONE 25 MG TABLET PO SCH (09:13)
[2016-11-12] MEDS: CHLORTHALIDONE 25 MG TABLET PO SCH (09:14)
[2016-11-12] MEDS: ISOSORBIDE MONONITRATE 60 MG TAB.ER.24H PO SCH (09:14)
[2016-11-12] MEDS ORDERED: NAPROXEN 250 MG TABLET PO ONE (10:00)
[2016-11-12] MEDS: INSULIN LISPRO 100 UNIT/ML 3 ML VIAL SUBCUT PRN ×3 (12:07→21:40)
--- NOTE | 2016-11-12 14:13 | PDOC PROGRESS REPORT ---
Subjective Progress Note for:: 11/12/16 Subjective:: reason for visit: f/u HTN, chest pain hospital course: SHARON JERONIMO is a 46 year old male presents to the ED from home with unrelenting, recurring substernal chest pain radiating into Rt chest, sharp, stabbing in nature, asct'd with intense global dull aching APPLE, some better with NTG, no exac factors and no other asct'd symptoms. 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 he has known refractory HTN requiring admission to this hospital in the past and needs a high dose multidrug regimen to get his BPs <200/100 and they are never "normal" . He took his BP last night during the first episode and found 252/169. he underwent stress test 02/2016f inding of fixed inferior defect, low EF at 31% and RVH. echo also performed at that time shows LAE, low nl EF 50%, other findings on chart. eval in ED shows elevated BPs but initial Ranjith neg and ECG shows no acute changes when compared to prior. we were asked to admit for further investigation and treatment. he underwent stress test that just shows the old scar with fixed defect but no new ischemic changes; echo shows LVH. Ranjith negative though they did creep up a bit. His BP remained markedly elevated in spite of multi drug regimen so moved to the ICU and started on nitro gtt that dr beltran changed to cardene which he only tolerated for a <30mins before rapid drop in his pressure, in fact was hypotensive for a period of time overnight. review of the old record shows he ruled for primary/secondary hyperaldosteronism and PRINCESS by lab testing and us doppler overall trend is back up but many of his oral meds weren't administered during the hypotension and about 12-15 hours recovery period afterward. It would seem a reasonable goal for him at present is <200/110 and we seem to be very close. ROS: overall feels better but still having sternal chest wall pain requiring narcs to control, and still very anxious about his BPs but denies cardiac type chest pain/pressure, APPLE, vision changes, tinnitus, abd pain, N/V/D, total 10 systems reviewed, remaining systems negative. Physical Exam Vital Signs: Temp Pulse Resp BP Pulse Ox 98.8 F 76 18 172/102 H 95 11/12/16 11:08 11/12/16 12:00 11/12/16 11:08 11/12/16 12:00 11/12/16 11:08 Intake & Output 11/11/16 11/12/16 11/13/16 06:59 06:59 06:59 Intake Total 2543 2293 222 Output Total 2100 550 200 Balance 443 1743 22 Weight 115.7 kg 116.7 kg General appearance: PRESENT: no acute distress, obese, well-developed, well- nourished Head exam: PRESENT: atraumatic, normocephalic Eye exam: PRESENT: EOMI. ABSENT: conjunctival injection, scleral icterus Mouth exam: PRESENT: moist, neck supple Neck exam: PRESENT: full ROM. ABSENT: JVD Respiratory exam: PRESENT: clear to auscultation bernardo. ABSENT: accessory muscle use Cardiovascular exam: PRESENT: RRR. ABSENT: tachycardia Pulses: PRESENT: normal radial pulses, normal dorsalis pedis pul GI/Abdominal exam: PRESENT: normal bowel sounds, soft. ABSENT: tenderness Extremities exam: ABSENT: calf tenderness, pedal edema Neurological exam: PRESENT: alert, awake, oriented to person, oriented to place , oriented to time, oriented to situation Psychiatric exam: PRESENT: appropriate affect, normal mood Skin exam: PRESENT: dry, rash - psoriatic lesions as previously noted, warm Results Laboratory Results: 11/11/16 03:44 11/11/16 03:44 Impressions: Chest X-Ray 11/08/16 10:49 IMPRESSION: Stable cardiomegaly. No focal infiltrates. Assessment & Plan - Diagnosis (1) Accelerated hypertension Is this a current diagnosis for this admission?: YesPlan: improved but not back to baseline; continue to titrate his regimen with dr beltran 's assistance (2) Chest pain Qualifiers: Chest pain type: chest pain on breathing Qualified Code(s): R07.1 - Chest pain on breathing Is this a current diagnosis for this admission?: YesPlan: no better and c/w costochondritis; judicious trial of NSAIDs, tried single dose decadron without improvement (3) Headache Qualifiers: Headache type: other drug induced headache Intractability: not intractable Qualified Code(s): G44.40 - Drug-induced headache, not elsewhere classified, not intractable Is this a current diagnosis for this admission?: YesPlan: resolved (4) Plaque psoriasis Is this a current diagnosis for this admission?: Yes (5) Status post ventricular septal defect closure Is this a current diagnosis for this admission?: Yes - Time Time Spent with patient: 25-34 minutes Anticipated discharge: Home Within: within 24 hours - Plan Summary Plan Summary: if we can establish a consistent BP <200/100 that would be a victory at this point and stable for d/c home to continue outpt management; recommend referral to HTN specialist (washhouse worker maybe?) to assist, if one is available locally
--- NOTE | 2016-11-12 19:02 | PDOC PROGRESS REPORT ---
Subjective Progress Note for:: 11/12/16 Subjective:: Blood pressure now is significantly elevated. Patient feeling overall better than yesterday. It seems he does better when his blood pressure is high. Pt is denying any chest arm or neck discomfort. Patient denying any PND, orthopnea. Patient denied any sustained palpitations, dizziness, syncope, near syncope. Patient denying any fever chills. Patient denying any other significant discomfort. Discussed with hospitalist. Patient did have renal artery ultrasound which was negative for renal artery stenosis. Patient also had sedum renin/aldosterone ratio and also catecholamine excretions. These were all noted to be negative. Patient does have high probability of sleep apnea. Patient is maintaining sinus rhythm. Review of systems: Rest review of systems negative. Medications: Medications have been reviewed. Physical Exam Vital Signs: Temp Pulse Resp BP Pulse Ox 98.8 F 76 18 172/102 H 95 11/12/16 11:08 11/12/16 12:00 11/12/16 11:08 11/12/16 12:00 11/12/16 11:08 Intake & Output 11/11/16 11/12/16 11/13/16 06:59 06:59 06:59 Intake Total 2543 2293 222 Output Total 2100 550 200 Balance 443 1743 22 Weight 115.7 kg 116.7 kg Exam: GEN: NAD, patient alert oriented x3. Appearance and grooming WNL HEENT : Eyes: AZAM, Ears: No significant abnormalities, Nose: No significant abnormalities. normocephalic atraumatic. Flat midface (-), Receding chin (-) ORAL : Mallampati class III, highly arched palate (-) Tonsils: Not enlarged. NECK: no thyromegaly, no masses, trachea is central, JVD is not elevated, carotids are 2+ with bruit (-) RESP: lungs clear to auscultation bilaterally, no rales, wheezes or rhonchi., nonlabored, no use of accessory muscles of respiration CV: NL S1 and S2. 2/6 ejection systolic murmur noted in the aortic area and left sternal border. 1/6 pansystolic murmur noted at the apex. no S3, no S4 noted. No rub noted., gallops, rubs, clicks GI: abd NT to palpation, no masses, bowel sounds present, no guarding or rigidity noted. EXT: no clubbing, (-) cyanosis, edema (1+), perpheral pulses diminished (+) MUSC/SKEL: no acute joint swelling noted. Muscle strength is generally intact. NEURO: no tremors. no significant focal neurological deficits are noted., sensation grossly intact, AO x 3 PSYCH: NL mood and affect. judgment and insight noted to be intact.. SKIN: (+ )rash, (-)Signs of pruritus, (-) other significant abnormality. Results Laboratory Results: 11/11/16 03:44 11/11/16 03:44 Impressions: Chest X-Ray 11/08/16 10:49 IMPRESSION: Stable cardiomegaly. No focal infiltrates. Assessment & Plan - Diagnosis (1) Chest pain Qualifiers: Chest pain type: chest pain on breathing Qualified Code(s): R07.1 - Chest pain on breathing Is this a current diagnosis for this admission?: Yes (2) Hypertensive emergency Is this a current diagnosis for this admission?: Yes (3) Dyspnea Qualifiers: Dyspnea type: unspecified Qualified Code(s): R06.00 - Dyspnea, unspecified (4) Diabetes mellitus Qualifiers: Diabetes mellitus type: type 2 Diabetes mellitus complication status: with unspecified complications Is this a current diagnosis for this admission?: Yes (6) HLD (hyperlipidemia) Qualifiers: Hyperlipidemia type: other hyperlipidemia Qualified Code(s): E78.4 - Other hyperlipidemia Is this a current diagnosis for this admission?: Yes - Notes Notes: Chest pain is felt to be noncardiac. Patient being advised aggressive risk factor modification and medical management. Elevated blood pressure: patient still has extremely elevated blood pressure. Antihypertensives are being adjusted. Sleep disordered: patient encouraged to have a sleep study and this will be performed as an outpatient. Obesity: patient encouraged in weight loss. Diabetes: Being well managed by hospitalist. Hyperlipidemia: Continue high potency statin therapy. Patient needs cardiology follow-up for better control of blood pressure. Will restart patient on chlorthalidone. - Time Time with patient: Greater than 35 minutes - CODE STATUS was discussed, patient remains full code. Surrogate decision-maker unchanged. Multiple medical problems were addressed. More than 50% of the time spent coordinating care, discussing management plans with involved caregivers. Management plans discussed with involved personnels. Medical decision making was of moderate to high complexity, patient's has multiple comorbidities. Medications reviewed and adjusted accordingly: Yes
[2016-11-12] MEDS: ATORVASTATIN CALCIUM 80 MG TABLET PO SCH (21:40)
[2016-11-13] MEDS ORDERED: LORAZEPAM INJ 2 MG/1 ML VIAL ONE (05:03)
[2016-11-13] MEDS: HYDRALAZINE HCL INJ/PF 20 MG/1 ML SDV IV PRN (05:42)
[2016-11-13] MEDS ORDERED: LORAZEPAM INJ 2 MG/1 ML VIAL IV ONE (05:45)
[2016-11-13] MEDS: HYDRALAZINE HCL 50 MG TABLET PO SCH ×3 (06:28→21:32)
[2016-11-13] MEDS: CLONIDINE HCL 0.2 MG TABLET PO SCH ×3 (06:28→21:31)
[2016-11-13] MEDS: LANSOPRAZOLE 30 MG TAB.RAP.DR PO SCH (06:29)
[2016-11-13] MEDS: LABETALOL HCL 200 MG TABLET PO SCH ×3 (06:29→21:32)
--- NOTE | 2016-11-13 07:54 | EKG REPORT ---
SEVERITY:- ABNORMAL ECG - SINUS RHYTHM PROBABLE LEFT ATRIAL ABNORMALITY LEFT ANTERIOR FASCICULAR BLOCK BORDERLINE R WAVE PROGRESSION, ANTERIOR LEADS NONSPECIFIC T ABNORMALITIES, LATERAL LEADS : Confirmed by: Yoseph Yu MD 13-Nov-2016 07:53:53
[2016-11-13] MEDS: ENOXAPARIN SODIUM INJ 40 MG/0.4 ML DISP.SYRIN SUBCUT SCH (08:39)
[2016-11-13] MEDS: INSULIN LISPRO 100 UNIT/ML 3 ML VIAL SUBCUT PRN ×3 (08:39→18:40)
[2016-11-13] MEDS: OXYCODONE-ACETAMINOPHEN 5-325 MG TABLET PO PRN (10:19)
[2016-11-13] MEDS: ISOSORBIDE MONONITRATE 60 MG TAB.ER.24H PO SCH (10:19)
[2016-11-13] MEDS: LISINOPRIL 10 MG TABLET PO SCH ×2 (10:20→21:31)
[2016-11-13] MEDS: ASPIRIN 325 MG TABLET, ENT COATED PO SCH (10:20)
[2016-11-13] MEDS: AMLODIPINE BESYLATE 10 MG TABLET PO SCH ×2 (10:21→21:31)
[2016-11-13] MEDS: CHLORTHALIDONE 25 MG TABLET PO SCH (10:21)
[2016-11-13] MEDS: SPIRONOLACTONE 25 MG TABLET PO SCH (10:22)
--- NOTE | 2016-11-13 15:01 | PDOC PROGRESS REPORT ---
Subjective Progress Note for:: 11/13/16 Subjective:: SHARON JERONIMO is a 46 year old male presents to the ED from home with unrelenting, recurring substernal chest pain radiating into Rt chest, sharp, stabbing in nature, asct'd with intense global dull aching APPLE, some better with NTG, no exac factors and no other asct'd symptoms. 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 he has known refractory HTN requiring admission to this hospital in the past and needs a high dose multidrug regimen to get his BPs <200/100 and they are never "normal" . He took his BP last night during the first episode and found 252/169. he underwent stress test 02/2016f inding of fixed inferior defect, low EF at 31% and RVH. echo also performed at that time shows LAE, low nl EF 50%, other findings on chart. eval in ED shows elevated BPs but initial Ranjith neg and ECG shows no acute changes when compared to prior. we were asked to admit for further investigation and treatment. he underwent stress test that just shows the old scar with fixed defect but no new ischemic changes; echo shows LVH. Ranjith negative though they did creep up a bit. His BP remained markedly elevated in spite of multi drug regimen so moved to the ICU and started on nitro gtt that dr khan changed to cardene which he only tolerated for a <30mins before rapid drop in his pressure, in fact was hypotensive for a period of time overnight. review of the old record shows he ruled for primary/secondary hyperaldosteronism and PRINCESS by lab testing and us doppler Today, he denies chest pain or headache. Blood pressure has been labile. Physical Exam Vital Signs: Temp Pulse Resp BP Pulse Ox 98.1 F 58 L 22 H 123/77 98 11/13/16 11:53 11/13/16 11:53 11/13/16 11:53 11/13/16 11:53 11/13/16 11:53 Intake & Output 11/12/16 11/13/16 11/14/16 06:59 06:59 06:59 Intake Total 2293 754 2022 Output Total 550 1800 600 Balance 1743 -1046 1422 Weight 116.7 kg 115.9 kg Additional comments: General appearance: PRESENT: no acute distress, obese, well-developed, well- nourished Head exam: PRESENT: atraumatic, normocephalic Eye exam: PRESENT: EOMI. ABSENT: conjunctival injection, scleral icterus Mouth exam: PRESENT: moist, neck supple Neck exam: PRESENT: full ROM. ABSENT: JVD Respiratory exam: PRESENT: clear to auscultation bernardo. ABSENT: accessory muscle use Cardiovascular exam: PRESENT: RRR. ABSENT: tachycardia Pulses: PRESENT: normal radial pulses, normal dorsalis pedis pulses GI/Abdominal exam: PRESENT: normal bowel sounds, soft. ABSENT: tenderness Extremities exam: ABSENT: calf tenderness, pedal edema Neurological exam: PRESENT: alert, awake, oriented to person, oriented to place , oriented to time, oriented to situation Psychiatric exam: PRESENT: appropriate affect, normal mood Skin exam: PRESENT: dry, rash - psoriatic lesions as previously noted, warm Results Laboratory Results: 11/11/16 03:44 11/11/16 03:44 Impressions: Chest X-Ray 11/08/16 10:49 IMPRESSION: Stable cardiomegaly. No focal infiltrates. Assessment & Plan - Diagnosis (1) Accelerated hypertension Is this a current diagnosis for this admission?: YesPlan: Continue medications as advised by cardiology, Dr. Khan. We plan to check a CT of the chest and abdomen with contrast he was allergic to the iodine dye. The studies were therefore canceled. We are proceeding with a 24 hour urine for catecholamines. (2) Chest pain Qualifiers: Chest pain type: chest pain on breathing Qualified Code(s): R07.1 - Chest pain on breathing Is this a current diagnosis for this admission?: YesPlan: The patient is currently chest pain-free. Continue current Rx. (3) Headache Qualifiers: Headache type: other drug induced headache Intractability: not intractable Qualified Code(s): G44.40 - Drug-induced headache, not elsewhere classified, not intractable Is this a current diagnosis for this admission?: YesPlan: Patient is currently headache free. Continue current Rx. (4) Plaque psoriasis Is this a current diagnosis for this admission?: Yes (5) Status post ventricular septal defect closure Is this a current diagnosis for this admission?: Yes
--- NOTE | 2016-11-13 19:34 | PDOC PROGRESS REPORT ---
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 12-lead EKG obtained showed no significant ST segment changes. Patient blood pressure this morning is somewhat better. Patient has very fluctuating and labile blood pressure. Patient is maintaining sinus rhythm. Review of systems: Rest review of systems negative. Medications: Medications have been reviewed. Physical Exam Vital Signs: Temp Pulse Resp BP Pulse Ox 97.6 F 63 23 H 124/79 95 11/13/16 07:48 11/13/16 07:48 11/13/16 07:48 11/13/16 07:48 11/13/16 07:48 Intake & Output 11/12/16 11/13/16 11/14/16 06:59 06:59 06:59 Intake Total 2293 754 Output Total 550 1800 Balance 1743 -1046 Weight 116.7 kg 115.9 kg Exam: GENERAL: well-nourished and in no acute distress. Alert and oriented x3 HEAD: Atraumatic, normocephalic. EYES: Pupils equal round and reactive to light, extraocular movements intact, sclera anicteric, conjunctiva are normal. ENT: TMs normal, nares patent, oropharynx clear without exudates. Moist mucous membranes. No oral ulcerations or bleeding gums noted NECK: supple without lymphadenopathy. Trachea is central. No cervical or axillary lymphadenopathy noted. Carotids are 2+, JVD WNL LUNGS: Respiration seems nonlabored, no significant accessory muscle action noted. Breath sounds clear to auscultation bilaterally and equal noted. No wheezes rales or rhonchi noted. No significant dullness noted on percussion. CHEST: No other significant abnormalities noted. Chest wall tenderness noted HEART: [place] [employer], No PSH, 1/6 VY aortic area, 1/6 parker systolic murmur mitral area, no rubs, no gallops. ABDOMEN: Soft, no significant tenderness appreciated, normoactive bowel sounds. No guarding, no rebound. No rigidity noted . No masses appreciated. EXTREMITIES: Pedal pulses are 1-2+, no calf tenderness noted. No clubbing or cyanosis.trace to 1+ pedal edema noted NEUROLOGICAL: Focused neurological exam showed no significant neurologic deficit. Normal speech, no focal weakness appreciated. PSYCH: Normal mood, normal affect. Judgment and insight within normal limits. SKIN: No significant ecchymosis, psoriatic rash and dermatitis rash noted. MUSCULOSKELETAL EXAM: No significant joint swelling noted. Results Laboratory Results: 11/11/16 03:44 11/11/16 03:44 Impressions: Chest X-Ray 11/08/16 10:49 IMPRESSION: Stable cardiomegaly. No focal infiltrates. Assessment & Plan - Diagnosis (1) Chest pain Qualifiers: Chest pain type: chest pain on breathing Qualified Code(s): R07.1 - Chest pain on breathing Is this a current diagnosis for this admission?: Yes (2) Hypertensive emergency Is this a current diagnosis for this admission?: Yes (3) Dyspnea Qualifiers: Dyspnea type: unspecified Qualified Code(s): R06.00 - Dyspnea, unspecified (4) Diabetes mellitus Qualifiers: Diabetes mellitus type: type 2 Diabetes mellitus complication status: with unspecified complications Is this a current diagnosis for this admission?: Yes (6) HLD (hyperlipidemia) Qualifiers: Hyperlipidemia type: other hyperlipidemia Qualified Code(s): E78.4 - Other hyperlipidemia Is this a current diagnosis for this admission?: Yes - Notes Notes: Chest pain is felt to be noncardiac. Patient being advised aggressive risk factor modification and medical management. Elevated blood pressure: patient still has intermittently extremely elevated blood pressure. Antihypertensives are being adjusted. Sleep disordered: patient encouraged to have a sleep study and this will be performed as an outpatient. Obesity: patient encouraged in weight loss. Diabetes: Being well managed by hospitalist. Hyperlipidemia: Continue high potency statin therapy. Have discussed further evaluation with hospitalist. Recommend CTA abdomen and chest to rule out coarctation, renal artery stenosis, adrenal tumor, pheochromocytoma etc. Have also recommended 24 hour urinary catecholamine excretion. Patient needs cardiology follow-up for better control of blood pressure. Have recommended patient to have a sleep study. 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 - Time Time with patient: Greater than 35 minutes - CODE STATUS was discussed, patient remains full code. Surrogate decision-maker unchanged. Multiple medical problems were addressed. More than 50% of the time spent coordinating care, discussing management plans with involved caregivers. Management plans discussed with involved personnels. Medical decision making was of moderate to high complexity, patient's has multiple comorbidities. Medications reviewed and adjusted accordingly: Yes
[2016-11-13] MEDS: ATORVASTATIN CALCIUM 80 MG TABLET PO SCH (21:32)
[2016-11-14] MEDS: OXYCODONE-ACETAMINOPHEN 5-325 MG TABLET PO PRN ×2 (02:20→22:08)
[2016-11-14] MEDS: HYDRALAZINE HCL INJ/PF 20 MG/1 ML SDV IV PRN (03:15)
[2016-11-14] MEDS: HYDRALAZINE HCL 50 MG TABLET PO SCH ×3 (05:24→22:09)
[2016-11-14] MEDS: CLONIDINE HCL 0.2 MG TABLET PO SCH ×3 (05:25→22:05)
[2016-11-14] MEDS: LANSOPRAZOLE 30 MG TAB.RAP.DR PO SCH (05:25)
[2016-11-14] MEDS: LABETALOL HCL 200 MG TABLET PO SCH ×3 (05:25→22:08)
[2016-11-14] MEDS: ENOXAPARIN SODIUM INJ 40 MG/0.4 ML DISP.SYRIN SUBCUT SCH (09:07)
[2016-11-14] MEDS: INSULIN LISPRO 100 UNIT/ML 3 ML VIAL SUBCUT PRN (09:07)
[2016-11-14] MEDS: SPIRONOLACTONE 25 MG TABLET PO SCH (09:07)
[2016-11-14] MEDS: AMLODIPINE BESYLATE 10 MG TABLET PO SCH ×2 (09:08→22:07)
[2016-11-14] MEDS: ASPIRIN 325 MG TABLET, ENT COATED PO SCH (09:08)
[2016-11-14] MEDS: ISOSORBIDE MONONITRATE 60 MG TAB.ER.24H PO SCH (09:09)
[2016-11-14] MEDS: LISINOPRIL 10 MG TABLET PO SCH ×2 (09:09→22:06)
[2016-11-14] MEDS: CHLORTHALIDONE 25 MG TABLET PO SCH (09:10)
--- NOTE | 2016-11-14 11:36 | PDOC PROGRESS REPORT ---
Subjective Progress Note for:: 11/14/16 Subjective:: SHARON JERONIMO is a 46 year old male presents to the ED from home with unrelenting, recurring substernal chest pain radiating into Rt chest, sharp, stabbing in nature, asct'd with intense global dull aching APPLE, some better with NTG, no exac factors and no other asct'd symptoms. 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 he has known refractory HTN requiring admission to this hospital in the past and needs a high dose multidrug regimen to get his BPs <200/100 and they are never "normal" . He took his BP last night during the first episode and found 252/169. he underwent stress test 02/2016f inding of fixed inferior defect, low EF at 31% and RVH. echo also performed at that time shows LAE, low nl EF 50%, other findings on chart. eval in ED shows elevated BPs but initial Rnajith neg and ECG shows no acute changes when compared to prior. we were asked to admit for further investigation and treatment. he underwent stress test that just shows the old scar with fixed defect but no new ischemic changes; echo shows LVH. Ranjith negative though they did creep up a bit. His BP remained markedly elevated in spite of multi drug regimen so moved to the ICU and started on nitro gtt that dr beltran changed to cardene which he only tolerated for a <30mins before rapid drop in his pressure, in fact was hypotensive for a period of time overnight. review of the old record shows he ruled for primary/secondary hyperaldosteronism and PRINCESS by lab testing and us doppler Today, he complains of severe headache. Blood pressure has been lower, in the 120/80's, which has been previously determined to be too low for him. 24-hour urine collection for catecholamines is underway. Physical Exam Vital Signs: Temp Pulse Resp BP Pulse Ox 98.9 F 83 20 164/148 H 99 11/14/16 08:50 11/14/16 08:50 11/14/16 08:50 11/14/16 08:50 11/14/16 08:50 Intake & Output 11/13/16 11/14/16 11/15/16 06:59 06:59 06:59 Intake Total 754 2937 Output Total 1800 1020 Balance -1046 1917 Weight 115.9 kg 75.4 kg Additional comments: General appearance: PRESENT: he is holding his head with both hands and looks to be in pain, obese, well-developed, well-nourished Head exam: PRESENT: atraumatic, normocephalic Eye exam: PRESENT: EOMI. ABSENT: conjunctival injection, scleral icterus Mouth exam: PRESENT: moist, neck supple Neck exam: PRESENT: full ROM. ABSENT: JVD Respiratory exam: PRESENT: clear to auscultation bernardo. ABSENT: accessory muscle use Cardiovascular exam: PRESENT: RRR. ABSENT: tachycardia Pulses: PRESENT: normal radial pulses, normal dorsalis pedis pulses GI/Abdominal exam: PRESENT: normal bowel sounds, soft. ABSENT: tenderness Extremities exam: ABSENT: calf tenderness, pedal edema Neurological exam: PRESENT: alert, awake, oriented to person, oriented to place , oriented to time, oriented to situation Psychiatric exam: PRESENT: appropriate affect, normal mood Skin exam: PRESENT: dry, rash - psoriatic lesions as previously noted, warm Results Laboratory Results: 11/11/16 03:44 11/11/16 03:44 Impressions: Chest X-Ray 11/08/16 10:49 IMPRESSION: Stable cardiomegaly. No focal infiltrates. Assessment & Plan - Diagnosis (1) Accelerated hypertension Is this a current diagnosis for this admission?: YesPlan: His blood pressure is now perhaps too low. He is complaining of severe headache. I will discontinue the Imdur. We will continue the Norvasc, clonidine, hydralazine, labetalol, lisinopril, and spironolactone. (2) Chest pain Qualifiers: Chest pain type: chest pain on breathing Qualified Code(s): R07.1 - Chest pain on breathing Is this a current diagnosis for this admission?: YesPlan: No complaint of chest pain today. (3) Headache Qualifiers: Headache type: other drug induced headache Intractability: not intractable Qualified Code(s): G44.40 - Drug-induced headache, not elsewhere classified, not intractable Is this a current diagnosis for this admission?: YesPlan: As above, severe headache today. Stopping Imdur. (4) Plaque psoriasis Is this a current diagnosis for this admission?: Yes (5) Status post ventricular septal defect closure Is this a current diagnosis for this admission?: Yes
[2016-11-14] MEDS: ATORVASTATIN CALCIUM 80 MG TABLET PO SCH (22:07)
[2016-11-15] MEDS: LABETALOL HCL 200 MG TABLET PO SCH (05:49)
[2016-11-15] MEDS: HYDRALAZINE HCL 50 MG TABLET PO SCH (05:50)
[2016-11-15] MEDS: CLONIDINE HCL 0.2 MG TABLET PO SCH (05:51)
[2016-11-15] MEDS: LANSOPRAZOLE 30 MG TAB.RAP.DR PO SCH (05:51)
[2016-11-15] MEDS: CHLORTHALIDONE 25 MG TABLET PO SCH (09:36)
[2016-11-15] MEDS: SPIRONOLACTONE 25 MG TABLET PO SCH (09:36)
[2016-11-15] MEDS: LISINOPRIL 10 MG TABLET PO SCH (09:37)
[2016-11-15] MEDS: AMLODIPINE BESYLATE 10 MG TABLET PO SCH (09:37)
[2016-11-15] MEDS: ASPIRIN 325 MG TABLET, ENT COATED PO SCH (09:37)
[2016-11-15] MEDS: HYDRALAZINE HCL INJ/PF 20 MG/1 ML SDV IV PRN (09:38)
[2016-11-15] MEDS: ENOXAPARIN SODIUM INJ 40 MG/0.4 ML DISP.SYRIN SUBCUT SCH (09:38)
[2016-11-15 11:42] VITALS: BP 180/120
--- NOTE | 2016-11-15 12:33 | PDOC DISCHARGE SUMMARY ---
General - Admit/Disc Date/PCP Admission Date/Primary Care Provider: 11/10/16 17:38 Discharge Date: 11/15/16 - Discharge Diagnosis (1) Accelerated hypertension Is this a current diagnosis for this admission?: YesSummary: The patient is a very long history of severe hypertension that is difficult to treat it. Frequently has headache and chest pain associated with it. He has also had a minor stroke has a residual left hemisensory/pain problem. He presented to the hospital this time with hypertension of 240/120 associated with chest pain and headache. He was seen in consultation by Dr. Khan, cardiology. Medications were adjusted. He developed severe headache with Imdur so that was discontinued. It was also noted that blood pressures in the typically normal range because of severe weakness and lightheadedness. It was therefore advised that his pressure treatment goal should be in the 160-180 systolic range for now. The time of discharge, the patient's blood pressure is in such range. Continues to have a mild degree of residual headache. He denies chest pain at the time of discharge. He denies dizziness or lightheadedness. He will be discharged on medications as detailed on his discharge plan. He will have close outpatient follow-up with his primary care physician and with cardiology. (2) Chest pain Is this a current diagnosis for this admission?: YesSummary: Chest pain resolved with improvement in his hypertension. Serial troponins were negative. (3) Headache Is this a current diagnosis for this admission?: YesSummary: John was variable during the course of this hospitalization. With Imdur, the headache became excruciating. Imdur was discontinued. (4) Plaque psoriasis Is this a current diagnosis for this admission?: YesSummary: The patient has severe generalized plaque psoriasis. He will resume his methotrexate as he takes at home. (5) Status post ventricular septal defect closure Is this a current diagnosis for this admission?: Yes - Additional Information Resuscitation Status: Full Code Discharge Diet: Cardiac, Diabetic Discharge Activity: Activity As Tolerated Home Medications: Chlorthalidone [Hygroton 25 mg Tablet] 25 mg PO BID 11/08/16 Clobetasol Propionate [Temovate 0.05% Ointment 15 gm] 1 applic TOP DAILY Folic Acid 1 mg PO QPM 11/08/16 Lisinopril [Prinivil] 20 mg PO BID 11/08/16 Metformin HCl [Metformin HCl ER] 500 mg PO TID 11/08/16 Methotrexate Sodium [Methotrexate] 10 mg PO WE 11/08/16 Nitroglycerin [Nitrostat] 0.4 mg SL Q5MP PRN 11/08/16 Oxycodone HCl/Acetaminophen [Percocet 10-325 mg Tablet] 1 tab PO TID 11/08/16 Prednisolone Acetate [Pred Forte] 1 drop OS Q4 11/08/16 Spironolactone [Aldactone 25 mg Tablet] 25 mg PO DAILY 11/08/16 Tamsulosin HCl [Flomax 0.4 mg Cap.sr] 0.4 mg PO QAM 11/08/16 Topiramate [Topamax 25 mg Tablet] 25 mg PO DAILYP PRN 11/08/16 Amlodipine Besylate [Norvasc 10 mg Tablet] 10 mg PO Q12 #60 tablet 11/15/16 Aspirin [Ecotrin 325 mg EC Tablet] 325 mg PO DAILY #0 tabec 11/15/16 Atorvastatin Calcium [Lipitor 80 mg Tablet] 80 mg PO QHS #30 tablet 11/15/16 Clonidine HCl [Catapres 0.2 mg Tablet] 0.3 mg PO Q8 #120 tablet 11/15/16 Hydralazine HCl [Apresoline 50 mg Tablet] 100 mg PO Q8 #120 tablet 11/15/16 Labetalol HCl [Normodyne 200 mg Tablet] 400 mg PO Q8 #120 tablet 11/15/16 History of Present Illness History of Present Illness: SHARON JERONIMO is a 46 year old male presents to the ED from home with unrelenting, recurring substernal chest pain radiating into Rt chest, sharp, stabbing in nature, asct'd with intense global dull aching APPLE, some better with NTG, no exac factors and no other asct'd symptoms. 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 he has known refractory HTN requiring admission to this hospital in the past and needs a high dose multidrug regimen to get his BPs <200/100 and they are never "normal" . He took his BP last night during the first episode and found 252/169. he underwent stress test inding of fixed inferior defect, low EF at 31% and RVH. echo also performed at that time shows LAE, low nl EF 50%, other findings on chart. eval in ED shows elevated BPs but initial Ranjith neg and ECG shows no acute changes when compared to prior. we were asked to admit for further investigation and treatment. Hospital Course Hospital Course: He underwent stress test that just shows the old scar with fixed defect but no new ischemic changes; echo shows LVH. Ranjith negative though they did creep up a bit. His BP remained markedly elevated in spite of multi drug regimen so moved to the ICU and started on nitro gtt that dr khan changed to cardene which he only tolerated for a <30mins before rapid drop in his pressure, in fact was hypotensive for a period of time overnight. review of the old record shows he ruled for primary/secondary hyperaldosteronism and PRINCESS by lab testing and us doppler 24-hour urine collection for catecholamines was collected and results pending at the time of discharge. With a number of medication changes, the patient's blood pressure gradually fell into the treatment range. The recommended goal was 160-180 systolic as pressures in the usual normal range caused dizziness and lightheadedness. Patient developed severe headache with Imdur, so that was discontinued. Final list of medications is as documented on the discharge plan. Physical Exam Vital Signs: Temp Pulse Resp BP Pulse Ox 98.5 F 74 18 180/120 H 96 11/15/16 11:40 11/15/16 11:40 11/15/16 11:40 11/15/16 11:40 11/15/16 11:40 Intake & Output 11/14/16 11/15/16 11/16/16 06:59 06:59 06:59 Intake Total 2932020 Output Total 1020 1999 Balance 1916 Weight 75.4 kg 75 kg Additional comments: General appearance: PRESENT: awake, alert, sitting up in bed listening to his smart phone, obese, well-developed, well-nourished Head exam: PRESENT: atraumatic, normocephalic Eye exam: PRESENT: EOMI. ABSENT: conjunctival injection, scleral icterus Mouth exam: PRESENT: moist, neck supple Neck exam: PRESENT: full ROM. ABSENT: JVD Respiratory exam: PRESENT: clear to auscultation bernardo. ABSENT: accessory muscle use Cardiovascular exam: PRESENT: RRR. ABSENT: tachycardia Pulses: PRESENT: normal radial pulses, normal dorsalis pedis pulses GI/Abdominal exam: PRESENT: normal bowel sounds, soft. ABSENT: tenderness Extremities exam: ABSENT: calf tenderness, pedal edema Neurological exam: PRESENT: alert, awake, oriented to person, oriented to place , oriented to time, oriented to situation Psychiatric exam: PRESENT: appropriate affect, normal mood Skin exam: PRESENT: dry, rash - psoriatic lesions as previously noted, warm Results Laboratory Results: 11/11/16 03:44 11/11/16 03:44 Impressions: Chest X-Ray 11/08/16 10:49 IMPRESSION: Stable cardiomegaly. No focal infiltrates. Qualifiers PATEINT BEING DISCHARGED WITH ANY OF THE FOLLOWING DIAGNOSIS?: No Plan Discharge Plan: The patient will continue on the medications as detailed on the discharge plan. He will have close follow-up with his primary care physician and with cardiology within 1 week of discharge. He will continue to monitor his own blood pressure at home.
--- NOTE | 2016-11-15 18:35 | PDOC PROGRESS REPORT ---
Subjective Progress Note for:: 11/15/16 Subjective:: Patient blood pressure is still noted to be high but possibly satisfactory and the best we can get for him. Patient did not get CTA of the chest or abdomen because of history of allergies to dye. Will recommend noninvasive testing to be performed as an outpatient. Patient is maintaining sinus rhythm. Review of systems: Rest review of systems negative. Medications: Medications have been reviewed. Physical Exam Vital Signs: Temp Pulse Resp BP Pulse Ox 98.5 F 74 18 180/120 H 96 11/15/16 11:40 11/15/16 11:40 11/15/16 11:40 11/15/16 11:40 11/15/16 11:40 Intake & Output 11/14/16 11/15/16 11/16/16 06:59 06:59 06:59 Intake Total 2932020 Output Total 1020 1999 Balance 1916 Weight 75.4 kg 75 kg Exam: GENERAL: well-nourished and in no acute distress. Alert and oriented x3 HEAD: Atraumatic, normocephalic. EYES: Pupils equal round and reactive to light, extraocular movements intact, sclera anicteric, conjunctiva are normal. ENT: TMs normal, nares patent, oropharynx clear without exudates. Moist mucous membranes. No oral ulcerations or bleeding gums noted NECK: supple without lymphadenopathy. Trachea is central. No cervical or axillary lymphadenopathy noted. Carotids are 2+, JVD WNL LUNGS: Respiration seems nonlabored, no significant accessory muscle action noted. Breath sounds clear to auscultation bilaterally and equal noted. No wheezes rales or rhonchi noted. No significant dullness noted on percussion. CHEST: Palpation of the chest wall shows no significant chest wall tenderness. No other significant abnormalities noted. 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 ABDOMEN: Soft, no significant tenderness appreciated, normoactive bowel sounds. No guarding, no rebound. No rigidity noted . No masses appreciated. EXTREMITIES: Pedal pulses are 1-2+, no calf tenderness noted. No clubbing or cyanosis.trace pedal edema noted NEUROLOGICAL: Focused neurological exam showed no significant neurologic deficit. Normal speech, no focal weakness appreciated. PSYCH: Normal mood, normal affect. Judgment and insight within normal limits. SKIN: No significant ecchymosis, psoriatic and dermatitis rash noted.. MUSCULOSKELETAL EXAM: No significant joint swelling noted. Results Laboratory Results: 11/11/16 03:44 11/11/16 03:44 Impressions: Chest X-Ray 11/08/16 10:49 IMPRESSION: Stable cardiomegaly. No focal infiltrates. Assessment & Plan - Diagnosis (1) Chest pain Qualifiers: Chest pain type: chest pain on breathing Qualified Code(s): R07.1 - Chest pain on breathing Is this a current diagnosis for this admission?: Yes (2) Hypertensive emergency Is this a current diagnosis for this admission?: Yes (3) Dyspnea Qualifiers: Dyspnea type: unspecified Qualified Code(s): R06.00 - Dyspnea, unspecified (4) Diabetes mellitus Qualifiers: Diabetes mellitus type: type 2 Diabetes mellitus complication status: with unspecified complications Is this a current diagnosis for this admission?: Yes (6) HLD (hyperlipidemia) Qualifiers: Hyperlipidemia type: other hyperlipidemia Qualified Code(s): E78.4 - Other hyperlipidemia Is this a current diagnosis for this admission?: Yes - Notes Notes: Chest pain is felt to be noncardiac. Patient being advised aggressive risk factor modification and medical management. Elevated blood pressure: patient still has intermittently elevated blood pressure. Antihypertensives has been stable for last 48 hours. Sleep disordered: patient encouraged to have a sleep study and this will be performed as an outpatient. Obesity: patient encouraged in weight loss. Diabetes: Being well managed by hospitalist. Hyperlipidemia: Continue high potency statin therapy. Have discussed further evaluation with hospitalist. Recommend CTA abdomen and chest to rule out coarctation, renal artery stenosis, adrenal tumor, pheochromocytoma etc. 24 hour urinary catecholamine excretion in process. Patient needs cardiology follow-up for better control of blood pressure. Have recommended patient to have a sleep study. 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 Patient should follow-up with me this was explained to him. - Time Time with patient: 15-25 minutes - CODE STATUS was discussed, patient remains full code. Surrogate decision-maker unchanged. Multiple medical problems were addressed. More than 50% of the time spent coordinating care, discussing management plans with involved caregivers. Management plans discussed with involved personnels. Medical decision making was of moderate to high complexity , patient's has multiple comorbidities.
[2016-11-23 17:37] LABS: DOPAMINE URINE 91 ug/L (Undefined); EPINEPHRINE URINE 8 ug/L (Undefined); NOREPINEPHRINE URINE 13 ug/L (Undefined); NOREPINEPHRINE URINE 24HR 51 ug/24 hr (0-135)
== END 2016-11-15 12:00 | disposition home or self-care (01) | DRG 305 ==
LOC: ER 10:03 → EH 15:27 → 3N 11-09 06:43 → ICU 11-09 16:55 → OBSVTOIN 11-10 17:38 → 3N 11-11 02:05
DX: I16.1 Hypertensive emergency (principal); R07.89 Other chest pain; R06.00 Dyspnea, unspecified; I10 Essential (primary) hypertension; I25.10 Atherosclerotic heart disease of native coronary artery without angina pectoris; E78.5 Hyperlipidemia, unspecified; L40.0 Psoriasis vulgaris; G44.89 Other headache syndrome; E26.89 Other hyperaldosteronism; E11.9 Type 2 diabetes mellitus without complications; R56.9 Unspecified convulsions; I25.2 Old myocardial infarction; Z86.73 Personal history of transient ischemic attack (TIA), and cerebral infarction without residual deficits; Z79.84 Long term (current) use of oral hypoglycemic drugs; Z79.01 Long term (current) use of anticoagulants; Z79.899 Other long term (current) drug therapy; Z88.5 Allergy status to narcotic agent; Z88.8 Allergy status to other drugs, medicaments and biological substances; Z91.013 Allergy to seafood; Z86.718 Personal history of other venous thrombosis and embolism; Z95.5 Presence of coronary angioplasty implant and graft; Z87.74 Personal history of (corrected) congenital malformations of heart and circulatory system
CPT/HCPCS: 36415; 71010; 78452; 80048; 80053; 80061; 82382; 82550; 82553; 82565; 82962; 83036; 83735; 84100; 84443; 84484; 85025; 85027; 85379; 85610; 85730; 93005; 93010; 93017; 93306; 96372; 99285; A9500; G0378; J0280; J0360; J1100; J1170; J1650; J1815; J1885; J2060; J2405; J2785; J3490; J7030; J8610; Q9969

== ENCOUNTER 2017-01-15 13:07 | Inpatient (IN) | payer MEDICARE ==
--- NOTE | 2017-01-15 13:32 | ER Document Report ---
ED Medical Screen (RME) - General Chief Complaint: High Blood Pressure Stated Complaint: BLOOD PRESSURE ISSUES Time Seen by Provider: 01/15/17 13:29 Notes: Patient presents with headache and uncontrolled blood pressure. He also states he began to notice numbness in the right arm 2 days ago and he woke up with a sudden headache approximately 2:30 AM and felt that his right hand was weak and he was not able to grab an aspirin bottle. He states he does take an aspirin per day. He states he has not skipped doses of any of his blood pressure medications. He states he has had to be hospitalized before for blood pressure control. He also states he has had a previous stroke that has left him with left arm weakness. TRAVEL OUTSIDE OF THE [place] IN LAST 30 DAYS: No - Related Data Allergies/Adverse Reactions: iodine [Iodine] Allergy (Severe, Verified 01/15/17 13:19) SWELLING Shellfish * [Shellfish] Allergy (Severe, Verified 01/15/17 13:19) Anaphylaxis morphine [Morphine] Allergy (Mild, Verified 01/15/17 13:19) diazepam [From Valium] Allergy (Verified 01/15/17 13:19) furosemide [From Lasix] Allergy (Verified 01/15/17 13:19) Past Medical History - Social History Family history: CAD - Past Medical History Cardiac Medical History: Reports: Hx Coronary Artery Disease, Hx DVT - right leg., Hx Heart Attack, Hx Hypercholesterolemia, Hx Hypertension, Hx Heart Murmur Pulmonary Medical History: Denies: Hx Asthma, Hx COPD, Hx Tuberculosis Neurological Medical History: Reports: Hx Cerebrovascular Accident - Lt sided weakness, Hx Seizures Endocrine Medical History: Reports: Hx Diabetes Mellitus Type 1, Hx Diabetes Mellitus Type 2. Denies: Hx Hyperthyroidism, Hx Hypothyroidism Renal/ Medical History: Reports: Hx Kidney Stones. Denies: Hx Peritoneal Dialysis GI Medical History: Reports: Hx Gastroesophageal Reflux Disease. Denies: Hx Cirrhosis, Hx Hepatitis Musculoskeltal Medical History: Reports Hx Arthritis, Reports Hx Muscle Weakness - Left Skin Medical History: Reports Hx Eczema, Denies Hx MRSA, Reports Hx Psoriasis Psychiatric Medical History: Denies: Hx Depression, Hx Schizoaffective Disorder Infectious Medical History: Denies: Hx Hepatitis, Hx MRSA Past Surgical History: Reports: Hx Cardiac Catheterization, Hx Cardiac Surgery - VSD having four previous surgeries as a child; heart valve defect, Hx Open Heart Surgery - VSD having four previous surgeries as a child; heart valve defect, Hx Vascular Surgery - Stents in right leg, Other - 4 separate operations for ventricular septal defect as a child.. Denies: Hx Pacemaker - Immunizations Immunizations up to date: Yes Hx Diphtheria, Pertussis, Tetanus Vaccination: Yes Physical Exam - Vital signs Vitals: Temp Pulse Resp BP Pulse Ox 99.2 F 98 16 192/114 H 96 01/15/17 13:20 01/15/17 13:20 01/15/17 13:20 01/15/17 13:20 01/15/17 13:20 Course - Vital Signs Vital signs: Temp Pulse Resp BP Pulse Ox 99.2 F 98 16 192/114 H 96 01/15/17 13:20 01/15/17 13:20 01/15/17 13:20 01/15/17 13:20 01/15/17 13:20
[2017-01-15 14:16] LABS: ABSOLUTE LYMPHOCYTES (AUTO) 1.1 10^3/uL (0.5-4.7); ABSOLUTE MONOCYTES (AUTO) 0.3 10^3/uL (0.1-1.4); ABSOLUTE NEUT (AUTO) 3.9 10^3/uL (1.7-8.2); BASOPHILS % (AUTO) 0.3 % (0-2); EOSINOPHILS % (AUTO) 0.8 % (0-6); HEMATOCRIT 39.1 % (37.9-51.0); HGB HCT DIFFERENCE -0.1; LYMPHOCYTES % (AUTO) 20.4 % (13-45); MEAN CORPUSCULAR HEMOGLOBIN 28.5 pg (27.0-33.4); MEAN CORPUSCULAR HGB CONC 33.3 g/dL (32.0-36.0); MEAN CORPUSCULAR VOLUME 86 fl (80-97); MONOCYTES % (AUTO) 5.4 % (3-13); RED BLOOD COUNT 4.57 10^6/uL (4.35-5.55); RED CELL DISTRIBUTION WIDTH 14.7 % (11.5-14.0); SEGMENTED NEUTROPHILS % (AUTO) 73.1 % (42-78); WHITE BLOOD COUNT 5.3 10^3/uL (4.0-10.5)
--- NOTE | 2017-01-15 14:38 | RADIOLOGY REPORT (SQ) ---
EXAM DESCRIPTION: CT HEAD WITHOUT COMPLETED DATE/TIME: 01/15/2017 2:13 pm REASON FOR STUDY: romo/right arm weakness COMPARISON: 02/06/2016. TECHNIQUE: Axial images acquired through the brain without intravenous contrast. Images reviewed wi th bone, brain and subdural windows. Images stored on PACS. All CT scanners at this facility use dose modulation, iterative reconstruction, and/or weight based d osing when appropriate to reduce radiation dose to as low as reasonably achievable (ALARA). [facility]: Dose Right [facility]: CareDose [facility]: Dose Right [facility]: Teradose 4D [facility]: FusionStorm RADIATION DOSE: Up-to-date CT equipment and radiation dose reduction techniques were employed. CTDIv ol: 64.6 mGy. DLP: 1163 mGy-cm. mGy. LIMITATIONS: None. FINDINGS: VENTRICLES: Normal size and contour. CEREBRUM: No masses. No hemorrhage. No midline shift. Normal menendez/white matter differentiation. N o evidence for acute infarction. CEREBELLUM: No masses. No hemorrhage. No alteration of density. No evidence for acute infarction. EXTRAAXIAL SPACES: No fluid collections. No masses. ORBITS AND GLOBE: No intra- or extraconal masses. Normal contour of globe without masses. CALVARIUM: No fracture. PARANASAL SINUSES: No fluid or mucosal thickening. SOFT TISSUES: No mass or hematoma. OTHER: No other significant finding. IMPRESSION: NORMAL BRAIN CT WITHOUT CONTRAST. TECHNICAL DOCUMENTATION: JOB ID: [id number] Quality ID # [id number]: Final reports with documentation of one or more dose reduction techniques (e.g., Au tomated exposure control, adjustment of the mA and/or kV according to patient size, use of iterative reconstruction technique) 2010 [email or web address]- All Rights Reserved
[2017-01-15 14:39] LABS: ALANINE AMINOTRANSFERASE 30 U/L (21-72); ALBUMIN 3.7 g/dL (3.5-5.0); ALKALINE PHOSPHATASE 94 U/L (38-126); ANION GAP 13 (5-19); ASPARTATE AMINO TRANSFERASE 24 U/L (17-59); BILIRUBIN,DIRECT 0.4 mg/dL (0.0-0.4); BILIRUBIN,TOTAL 0.7 mg/dL (0.2-1.3); BLOOD UREA NITROGEN 12 mg/dL (7-20); CALCIUM 8.8 mg/dL (8.4-10.2); CARBON DIOXIDE 21 mmol/L (22-30); CHLORIDE 102 mmol/L (98-107); CREATININE RESULT 0.94 mg/dL (0.52-1.25); GLUCOSE 289 mg/dL (75-110); POTASSIUM 4.3 mmol/L (3.6-5.0); SODIUM 135.9 mmol/L (137-145); TOTAL PROTEIN 7.4 g/dL (6.3-8.2)
[2017-01-15] MEDS ORDERED: NITROGLYCERIN 0.4 MG/TAB 25 TAB/BOTTLE SL PRN (16:12)
--- NOTE | 2017-01-15 16:12 | ER Document Report ---
ED Neuro Symptoms/Deficit - General Mode of Arrival: Ambulatory Information source: Patient TRAVEL OUTSIDE OF THE [place] IN LAST 30 DAYS: No - HPI Patient complains to provider of: Weakness Associated symptoms: Other - See above <BERNARD VASQUEZ - Last Filed: 01/15/17 22:30> <MARNI DICKEY - Last Filed: 01/15/17 22:33> - General Chief Complaint: Weakness Stated Complaint: right arm weakness Time Seen by Provider: 01/15/17 13:29 Notes: Patient is a 46 year old male, with a past medical history including CVA and HTN , who presents to the emergency department complaining of weakness in his right arm onset this morning at 0230. Patient reports that he woke up to a headache early this morning when he reached for his aspirin he noticed that his right arm was very weak. Patient reports he took his daily baby Asa and went back to sleep, when he woke up this morning he noticed that his arm was still weak and slightly numb, patient also complains of chest pain when laying down. Patient reports that he has run out of 2 of his HTN medications but does not know what, states he just moved back to the area a week ago and needs to find a PCP. ( BERNARD VASQUEZ) - Related Data Allergies/Adverse Reactions: iodine [Iodine] Allergy (Severe, Verified 01/15/17 13:19) SWELLING Shellfish * [Shellfish] Allergy (Severe, Verified 01/15/17 13:19) Anaphylaxis morphine [Morphine] Allergy (Mild, Verified 01/15/17 13:19) diazepam [From Valium] Allergy (Verified 01/15/17 13:19) furosemide [From Lasix] Allergy (Verified 01/15/17 13:19) Home Medications: Current Home Medications No Home Medications 01/15/17 [History] Past Medical History - General Information source: Patient - Social History Smoking Status: Never Smoker Chew tobacco use (# tins/day): No Frequency of alcohol use: None Drug Abuse: None Family History: Reviewed & Not Pertinent, Arthritis, CAD, CVA, DM, Hyperlipidemia, Hypertension, Malignancy, Other Patient has suicidal ideation: No Patient has homicidal ideation: No - Past Medical History Cardiac Medical History: Reports: Hx Coronary Artery Disease, Hx DVT - right leg., Hx Heart Attack, Hx Hypercholesterolemia, Hx Hypertension, Hx Heart Murmur Neurological Medical History: Reports: Hx Cerebrovascular Accident - Lt sided weakness, Hx Seizures Endocrine Medical History: Reports: Hx Diabetes Mellitus Type 1, Hx Diabetes Mellitus Type 2 Renal/ Medical History: Reports: Hx Kidney Stones GI Medical History: Reports: Hx Gastroesophageal Reflux Disease Musculoskeltal Medical History: Reports Hx Arthritis, Reports Hx Muscle Weakness - Left Skin Medical History: Reports Hx Eczema, Reports Hx Psoriasis Past Surgical History: Reports: Hx Cardiac Catheterization, Hx Cardiac Surgery - VSD having four previous surgeries as a child; heart valve defect, Hx Open Heart Surgery - VSD having four previous surgeries as a child; heart valve defect, Hx Vascular Surgery - Stents in right leg, Other - 4 separate operations for ventricular septal defect as a child. - Immunizations Immunizations up to date: Yes Hx Diphtheria, Pertussis, Tetanus Vaccination: Yes Hx Pneumococcal Vaccination: 03/24/13 <BERNARD VASQUEZ - Last Filed: 01/15/17 22:30> Review of Systems - Review of Systems Constitutional: See HPI, Weakness EENT: No symptoms reported Cardiovascular: See HPI, Chest pain Respiratory: No symptoms reported Gastrointestinal: No symptoms reported Genitourinary: No symptoms reported Male Genitourinary: No symptoms reported Musculoskeletal: No symptoms reported Skin: No symptoms reported Hematologic/Lymphatic: No symptoms reported Neurological/Psychological: See HPI, Headaches, Numbness -: Yes All other systems reviewed and negative <BERNARD VASQUEZ - Last Filed: 01/15/17 22:30> Physical Exam <BERNARD VASQUEZ - Last Filed: 01/15/17 22:30> <MARNI DICKEY - Last Filed: 01/15/17 22:33> - Vital signs Vitals: Temp Pulse Resp BP Pulse Ox 99.2 F 98 16 192/114 H 96 01/15/17 13:20 01/15/17 13:20 01/15/17 13:20 01/15/17 13:20 01/15/17 13:20 - Notes Notes: GENERAL: Alert, interacts well. No acute distress. HEAD: Normocephalic, atraumatic. EYES: Pupils equal, round, and reactive to light. Extraocular movements intact. ENT: Oral mucosa moist, tongue midline. NECK: Full range of motion. Supple. Trachea midline. LUNGS: Clear to auscultation bilaterally, no wheezes, rales, or rhonchi. No respiratory distress. HEART: Regular rate and rhythm. 3 out of 6 systolic ejection murmur. No gallops , or rubs. ABDOMEN: Soft, non-tender. Non-distended. Bowel sounds present in all 4 quadrants. EXTREMITIES: Moves all 4 extremities spontaneously. No edema, radial and dorsalis pedis pulses 2/4 bilaterally. No cyanosis. NEUROLOGICAL: Alert and oriented x3. Normal speech. Cranial nerves II through XII grossly intact. 4/5 muscle strength in right upper extremity. Right arm drifts before 10 seconds when held up. Decreased sharp dull differentiation on right side extremities. PSYCH: Normal affect, normal mood. SKIN: Warm, dry, normal turgor. Plaquing and scaling to abdomen consistent with psoriasis. (BERNARD VASQUEZ) Course - Laboratory Result Diagrams: 01/15/17 14:00 01/15/17 14:00 - Consults Dr. Teixeira Time consulted: 16:16 <BERNARD VASQUEZ - Last Filed: 01/15/17 22:30> - Laboratory Result Diagrams: 01/15/17 14:00 01/15/17 14:00 <MARNI DICKEY - Last Filed: 01/15/17 22:33> - Re-evaluation Re-evalutation: 01/15/17 16:29 CBC shows mild anemia with hemoglobin 13.0 otherwise unremarkable, CMP significantly elevated blood sugar 289, troponin negative but detectable at 0.013. CT scan of head is negative. Examination is concerning for very mild stroke. NIH stroke scale is 2. Patient is not a candidate for TPA as his symptoms onset last night at 2 AM. Patient already took 4 baby aspirin at home. Patient does also appear to be having hypertensive emergency as his blood pressure is quite elevated and he is having neurologic abnormalities. Patient was discussed with Dr. Teixeira the hospitalist and we agreed that the patient needed to go to the intensive care unit on a Cardene drip in full admission status. EKG does have some new T-wave inversions and no no ST segment elevations or depressions. Patient does have some chest pain and was given nitroglycerin for this. 01/15/17 16:37 After hospitalist spoke with patient the patient admitted that he had not actually taken any of his medications today despite telling me that he had taken his medications. Patient no longer needs the ICU needs the IMCU instead. I have changed the order to the IMCU. Patient will no longer be started on Cardene, Dr. Teixeira will enter the orders that he wants for blood pressure control at this point. (MARNI DICKEY) - Vital Signs Vital signs: Temp Pulse Resp BP Pulse Ox 98.3 F 69 20 147/97 H 100 01/15/17 20:23 01/15/17 20:23 01/15/17 20:23 01/15/17 20:23 01/15/17 20:23 - Laboratory Laboratory results interpreted by me: 01/15/17 01/15/17 14:00 14:00 Hgb 13.0 L RDW 14.7 H Sodium 135.9 L Carbon Dioxide 21 L Glucose 289 H - EKG Interpretation by Me Additional EKG results interpreted by me: 01/15/17 16:30 EKG shows sinus rhythm at a rate of 92, left anterior hemiblock, no ST segment elevations or depressions, there are T-wave inversions in 1, aVL, V4 through V6 , the T-wave inversions in V4 and V5 are new since prior EKG in 11/13/2016, there is prolonged QT interval per my interpretation. (MARNI DICKEY) - Consults Dr. Teixeira Reason for consultation: 01/15/[address] Teixeira, hospitalist, recommends Cardene drip and ICU bed. 01/15/17 22:30 (BERNARD VASQUEZ) Critical Care Note - Critical Care Note Total time excluding time spent on procedures (mins): 35 <MARNI DICKEY - Last Filed: 01/15/17 22:33> Discharge <BERNARD VASQUEZ - Last Filed: 01/15/17 22:30> - Discharge Admitting Provider: Cheo Teixeira Unit Admitted: IMCU <MARNI DICKEY - Last Filed: 01/15/17 22:33> - Discharge Clinical Impression: Hypertensive emergency, Chest pain in adult, Acute focal neurological deficit CVA (cerebral vascular accident) Qualifiers: CVA mechanism: unspecified Qualified Code(s): I63.9 - Cerebral infarction, unspecified Condition: Serious Disposition: ADMITTED INPATIENT Scribe Attestation: 01/15/17 22:32 I personally performed the services described in the documentation, reviewed and edited the documentation which was dictated to the scribe in my presence, and it accurately records my words and actions. (MARNI DICKEY) ED NIH Stroke Scale - NIH Stroke Scale When completed:: Protocol *: 1. NIH scale should be completed with appropriate accompanying assessment tools. *: 2. The NIH should reflect what the patient is capable of doing and should not be coached by the clinician. 1a. Level of Consciousness: 0=Alert;keenly responsive -: 1=Drowsy -: 2=Obtunded -: 3=Coma/unresponsive or reflex to noxious stimuli. 1a. Responses: 0 1b. Orientation Questions: a. What month is it? -: b. How old are you? -: 0=Answers both questions correctly. -: 1=Answers one question correctly or patient is intubated or has orotracheal trauma. -: 2=Answers neither question correctly. 1b. Responses: 0 1c. Response to commands: a. Open and close eyes? -: b. Salon Manager and release hand? -: Credit is given despite weakness. Demonstration of task is permitted. Substitute command if hands cannot be used. -: 0=Performs both tasks correctly -: 1=Performs one task correctly -: 2=Performs neither task correctly 1c. Responses: 0 2. Gaze: Establish eye contact and instruct patient to "Follow my finger" -: 0=Normal -: 1=Partial gaze palsy. Gaze is abnormal in one or both eyes, but where forced deviation or total gaze paresis is not present. -: 2=Forced deviation or total gaze paresis. 2. Responses: 0 3. Visual Dave: Sees fingers in all four quadrants. -: 0=No visual loss. -: 1=Partial hemianopsia. -: 2=Complete hemianopsia. -: 3=Bilateral hemianopsia (including Cortical blindness) 3. Responses: 0 4. Facial Movement: Instruct patient to: -: a. Show me your teeth -: b. Raise your eyebrows -: c. Close your eyes -: d. Smile -: 0=Normal symmetrical movement -: 1=Minor paralysis (flattened nasolabial fold, asymmetry on smiling). -: 2=Partial paralysis (total or near total paralysis of lower face). -: 3=Complete paralysis of upper and lower face 4. Responses: 0 5. Motor functions (left arm): Alternate sides and extend each arm with palms down (90 degrees if sitting or 45 degrees for supine). -: 0=No drift;limb holds for full 10 seconds. -: 1=Drift; limb holds but drifts down before full 10 seconds, but does not hit bed. -: 2=Some effort against gravity; limb cannot get to or maintain position. -: 3=No effort against gravity; limb falls. -: 4=No movement. -: UN=Amputation, joint fusion, explain in comments. 5. Responses (left arm): 0 5. Motor Functions (right arm): Alternate sides and extend each arm with palms down (90 degrees if sitting or 45 degrees for supine). -: 0=No drift;limb holds for full 10 seconds. -: 1=Drift; limb holds but drifts down before full 10 seconds, but does not hit bed. -: 2=Some effort against gravity; limb cannot get to or maintain position. -: 3=No effort against gravity; limb falls. -: 4=No movement. -: UN=Amputation, joint fusion, explain in comments. 5. Responses (right arm): 1 6. Motor Functions (left leg): With patient lying supine, alternate sides and extend each leg (30 degrees always while supine). -: 0=No drift, leg holds position for full 5 seconds -: 1=Drift; leg falls before full 5 seconds but does not hit bed. -: 2=Some effort against gravity, leg falls to bed but some effort against gravity. -: 3=No effort against gravity, leg falls to bed immediately. -: 4=No movement. -: UN=Amputation, joint fusion; explain in comments. 6. Responses (left leg): 0 6. Motor Functions (right leg): With patient lying supine, alternate sides and extend each leg (30 degrees always while supine). -: 0=No drift, leg holds position for full 5 seconds -: 1=Drift; leg falls before full 5 seconds but does not hit bed. -: 2=Some effort against gravity, leg falls to bed but some effort against gravity. -: 3=No effort against gravity, leg falls to bed immediately. -: 4=No movement. -: UN=Amputation, joint fusion; explain in comments. 6. Responses (right leg): 0 7. Limb Ataxia: With eyes open instruct patient to: -: a. "Touch your finger to your nose". -: b. "Touch your heel to your quintana" -: 0=Absent -: 1=Present in one limb. -: 2=Present in two limbs. -: UN=Amputation or joint fusion; explain in comments. 7. Responses: 0 8. Sensory: Test sensation using pinprick or noxious stimuli. Test as many body parts as possible. -: 0=Normal;no sensory loss -: 1=Mile to moderate sensory loss (patient feels pin prick but is less sharp on affected side). -: 2=Severe or total sensory loss. 8. Responses: 1 9. Best Language: Instruct patient to: -: a. "Describe what you see in this picture." -: b. "Name the items in this picture." -: c. "Read these sentences." -: 0=No aphasia, normal -: 1=Mild to moderate aphasia. -: 2=Severe aphasia -: 3=Mute, global aphasia, no usable speech or auditory comprehension. 9. Responses: 0 10. Articulation, Dysarthia: Instruct patient to: -: "Read these words" or "Repeat these words" -: 0=Normal -: 1=Mild to moderate; patient may slur some words but can be understood without difficulty. -: 2=Severe; patients speech so slurred as to be unintelligible in the absence of dysphasia. -: UN=Intubated or other physical barrier, explain in comments. 10. Responses: 0 11. Extinction or inattention: 0=No abnormality -: 1= Visual, tactile, auditory, spatial, or personal inattention or extinction to bilateral simulation in one or the sensory modalities. -: 2=Profound angel-inattention or angel-inattention to more than one modality; does not recognize own hand. 11. Responses: 0 Total Score: 2 <BERNARD VASQUEZ - Last Filed: 01/15/17 22:30> ED Thrombolytic Exclus/Inclus. ED Alteplase Inc/Exc Criteria - Date/Time patient last known well: Date/Time: 01/14/17 - Date/Time patient arrived in ED: _: 01/15/17 1307 - Inclusion Criteria: 1: Patient presented to ED within 3 hours of acute ischemic stroke symptom onset ? -: No 2: Did baseline CT exclude intracranial hemorrhage and/or other risk factors? -: Yes 3: Is the age of the patient 18 years of age or greater? -: Yes : If any of the above questions are answered "NO" then stop, patient is not a candidate for Alteplase, : If all of the above questions are answered "YES" then continue with Exclusion Criteria. <BERNARD VASQUEZ - Last Filed: 01/15/17 22:30> - The patient is: -: Included and is eligible to receive Alteplase. *Initiate bed placement at higher level of care* --: No Reviewd risks & benefits of thrombolytic therapy: I have reviewed the risks and benefits of thrombolytic therapy with the patient and/or his/her family. -: Excluded and not eligible to receive Alteplase for the above exclusions. --: Yes -: Excluded and not eligible to receive Alteplase for other reasons (specify in comments): - Diagnosis of TIA: -: Patient presented with transient symptoms that are now resolved and no other neurologic findings are currently present. List symptoms in comments. -: Patient is NOT a candidate for tPA. -: Yes -: ____(put name in comment) has been consulted for admission and continued evaluation of risk factor assessment. Comment: Puneet <MARNI DICKEY - Last Filed: 01/15/17 22:33> Scribe Documentation - Scribe Written by Zarina:: zarina Burk, 01/15/17, 181 acting as scribe for :: Alexander <BERNARD VASQUEZ - Last Filed: 01/15/17 22:30>
[2017-01-15] MEDS ORDERED: HYDRALAZINE HCL INJ/PF 20 MG/1 ML SDV IV ONE (16:13)
[2017-01-15] MEDS ORDERED: NICARDIPINE HCL RTU, ISO-OS 200 ML IV PRN (16:18)
[2017-01-15] MEDS ORDERED: ONDANSETRON HCL INJ/PF 4 MG/2 ML SDV IV PRN (16:40)
[2017-01-15] MEDS ORDERED: OXYCODONE-ACETAMINOPHEN 5-325 MG TABLET PO PRN ×2 (16:40→22:32)
[2017-01-15] MEDS ORDERED: METOPROLOL TARTRATE PF/INJ 5 MG/5 ML SDV IV PRN ×2 (16:50→22:32)
--- NOTE | 2017-01-15 17:20 | PDOC H&P ---
History of Present Illness Admission Date/PCP: 01/15/2017 no PCP Patient complains of: rt sided numbness History of Present Illness: SHARON JERONIMO is a 46 year old male with known difficult to control HTN requiring multidrug regimen with prior hx of CVA and mild residual paresthesias requiring prolonged hospitalizations for control of his BP returns to the ED from home when he noticed weakness and numbness of his Rt side and particularly his fingers. EMS called and found his initial BP >200/100. During his last admit in 10/2016 he was very labile and actually became more symptomatic when we normalized his BP to <140/90 and seems to function better in the 160/90 range. He reports mild global, diffuse nonradiating APPLE without exac or alleviating factors and no other asct'd symptoms. By the time I saw him most of his paresthesias have resolved and his BP is 185/129 at present. we were asked to admit for further eval and management. It should be noted that he had moved to [facility] but just returned 2 wks ago and ran out of his meds over the last week, taking nothing for his HTN in >48hrs. Past Medical History Cardiac Medical History: Reports: Coronary Artery Disease, DVT - right leg., Myocardial Infarction, Hyperlipidema, Hypertension, Heart Murmur Pulmonary Medical History: Denies: Asthma, Chronic Obstructive Pulmonary Disease (COPD), Tuberculosis Neurological Medical History: Reports: Seizures Endocrine Medical History: Reports: Diabetes Mellitus Type 1, Diabetes Mellitus Type 2 Denies: Hyperthyroidism, Hypothyroidism GI Medical History: Reports: Gastroesophageal Reflux Disease Denies: Cirrhosis, Hepatitis Musculoskeltal Medical History: Reports: Arthritis Skin Medical History: Reports: Eczema, Psoriasis Psychiatric Medical History: Denies: Depression, Schizoaffective Disorder Infectious Medical History: Denies: Methicillin-Resistant Staph Aureus Past Surgical History Past Surgical History: Reports: Cardiac Catheterization, Vascular Surgery - Stents in right leg, Other - 4 separate operations for ventricular septal defect as a child. Denies: Pacemaker Social History Information Source: Patient Smoking Status: Never Smoker Frequency of Alcohol Use: Occasional - None for the past 6 months. Hx Recreational Drug Use: No Drugs: None Hx Prescription Drug Abuse: No - Advance Directive Resuscitation Status: Full Code Family History Family History: Arthritis, CAD, CVA, DM, Hyperlipidemia, Hypertension, Malignancy, Other Parental Family History Reviewed: Yes Children Family History Reviewed: Yes Sibling(s) Family History Reviewed.: Yes Medication/Allergy Allergies/Adverse Reactions: iodine [Iodine] Allergy (Severe, Verified 01/15/17 13:19) SWELLING Shellfish * [Shellfish] Allergy (Severe, Verified 01/15/17 13:19) Anaphylaxis morphine [Morphine] Allergy (Mild, Verified 01/15/17 13:19) diazepam [From Valium] Allergy (Verified 01/15/17 13:19) furosemide [From Lasix] Allergy (Verified 01/15/17 13:19) Review of Systems All systems: reviewed and no additional remarkable complaints except as stated - all systems reviewed, see HPI, remaining systems negative Physical Exam Vital Signs: Temp Pulse Resp BP Pulse Ox 99.2 F 98 17 185/129 H 100 01/15/17 13:20 01/15/17 13:20 01/15/17 16:05 01/15/17 16:05 01/15/17 16:05 Intake & Output 01/14/17 01/15/17 01/16/17 06:59 06:59 06:59 Weight 112 kg General appearance: PRESENT: no acute distress, well-developed, well-nourished Head exam: PRESENT: atraumatic, normocephalic Eye exam: PRESENT: EOMI, PERRLA. ABSENT: conjunctival injection, scleral icterus Mouth exam: PRESENT: moist, neck supple Neck exam: PRESENT: full ROM. ABSENT: tenderness Respiratory exam: PRESENT: clear to auscultation bernardo. ABSENT: accessory muscle use Cardiovascular exam: PRESENT: RRR. ABSENT: systolic murmur Pulses: PRESENT: normal radial pulses, normal dorsalis pedis pul GI/Abdominal exam: PRESENT: normal bowel sounds, soft. ABSENT: tenderness Extremities exam: ABSENT: calf tenderness, pedal edema Musculoskeletal exam: PRESENT: ambulatory, full ROM Neurological exam: PRESENT: alert, awake, oriented to person, oriented to place , oriented to time, oriented to situation, reflexes normal, normal gait. ABSENT : ataxia Skin exam: PRESENT: dry, warm Results Laboratory Results: 01/15/17 14:00 01/15/17 14:00 01/15/17 01/15/17 14:00 14:00 WBC 5.3 RBC 4.57 Hgb 13.0 L Hct 39.1 MCV 86 MCH 28.5 MCHC 33.3 RDW 14.7 H Plt Count 246 Seg Neutrophils % 73.1 Lymphocytes % 20.4 Monocytes % 5.4 Eosinophils % 0.8 Basophils % 0.3 Absolute Neutrophils 3.9 Absolute Lymphocytes 1.1 Absolute Monocytes 0.3 Absolute Eosinophils 0.0 Absolute Basophils 0.0 Sodium 135.9 L Potassium 4.3 Chloride 102 Carbon Dioxide 21 L Anion Gap 13 BUN 12 Creatinine 0.94 Est GFR ( Amer) > 60 Est GFR (Non-Af Amer) > 60 Glucose 289 H Calcium 8.8 Total Bilirubin 0.7 AST 24 ALT 30 Alkaline Phosphatase 94 Total Protein 7.4 Albumin 3.7 01/15/17 14:00 Troponin I 0.013 Impressions: Head CT 01/15/17 13:30 IMPRESSION: NORMAL BRAIN CT WITHOUT CONTRAST. Status: Image reviewed by me - agree with rads Assessment & Plan - Diagnosis (1) Malignant essential hypertension Is this a current diagnosis for this admission?: Yes (2) Plaque psoriasis Is this a current diagnosis for this admission?: Yes (3) Urinary hesitancy Is this a current diagnosis for this admission?: Yes (4) Valvular heart disease Is this a current diagnosis for this admission?: Yes (5) Full code status Is this a current diagnosis for this admission?: Yes - Time Time Spent: 50 to 70 Minutes Medications reviewed and adjusted accordingly: Yes Anticipated discharge: Home Within: within 72 hours - Inpatient Certification Based on my medical assessment, after consideration of the patient's comorbidities, presenting symptoms, or acuity I expect that the services needed warrant INPATIENT care.: Yes I certify that my determination is in accordance with my understanding of Medicare's requirements for reasonable and necessary INPATIENT services [42 CFR 412.3e].: Yes Medical Necessity: Significant Comorbidiites Make Outpatient Treatment Too Risky , Need Close Monitoring Due to Risk of Patient Decompensation, Need For Continuous Telemetry Monitoring, Risk of Complication if Not Cared For in Hospital - Plan Summary Plan Summary: admit to [facility] for close neurologic, hemodynamic and telemetry monitoring to resume his home meds targeting his BP to 160/90. If he holds true to form, his pressure will come down but he is very labile and becomes symptomatic if he is lowered too quickly or below his target. will trend his cardiac enzymes though my suspicion for ischemia is low. neuro cks through the night. continue ASA and high dose statin
[2017-01-15] MEDS ORDERED: CLONIDINE HCL 0.2 MG TABLET PO ONE ×2 (17:30→23:00)
[2017-01-15] MEDS ORDERED: ENOXAPARIN SODIUM INJ 40 MG/0.4 ML DISP.SYRIN SUBCUT ONE (17:30)
[2017-01-15] MEDS ORDERED: SPIRONOLACTONE 25 MG TABLET PO ONE (17:30)
[2017-01-15] MEDS ORDERED: TAMSULOSIN HCL 0.4 MG CAP.SR.24H PO SCH (18:00)
[2017-01-15] MEDS ORDERED: CHLORTHALIDONE 25 MG TABLET PO SCH (18:00)
[2017-01-15] MEDS: ACETAMINOPHEN 325 MG TABLET PO PRN (21:15)
[2017-01-15] MEDS: ATORVASTATIN CALCIUM 80 MG TABLET PO SCH (21:15)
[2017-01-15] MEDS ORDERED: AMLODIPINE BESYLATE 10 MG TABLET PO SCH (22:00)
[2017-01-15] MEDS ORDERED: LABETALOL HCL 200 MG TABLET PO SCH (22:00)
[2017-01-15] MEDS ORDERED: HYDRALAZINE HCL 50 MG TABLET PO SCH (22:00)
[2017-01-15] MEDS ORDERED: NORMAL SALINE 1000 ML 500 ML IV PRN (22:32)
[2017-01-15] MEDS ORDERED: HYDRALAZINE HCL 50 MG TABLET PO ONE (23:00)
[2017-01-15] MEDS ORDERED: AMLODIPINE BESYLATE 10 MG TABLET PO ONE (23:00)
[2017-01-15] MEDS ORDERED: LABETALOL HCL 200 MG TABLET PO ONE (23:00)
[2017-01-16] MEDS ORDERED: NORMAL SALINE 1000 ML 250 ML IV PRN ×2 (00:55→02:29)
[2017-01-16] MEDS: LANSOPRAZOLE 15 MG TAB.RAP.DR PO SCH (05:09)
[2017-01-16] MEDS ORDERED: DEXTROSE 50%-WATER 25 GM/50 ML DISP.SYRIN IV PRN ×2 (05:53)
[2017-01-16] MEDS ORDERED: DEXTROSE 40% GEL 15 GM TUBE PO PRN ×2 (05:53)
[2017-01-16] MEDS ORDERED: GLUCAGON,HUMAN RECOMB 1 MG INJ IM PRN (05:53)
[2017-01-16] MEDS ORDERED: CLONIDINE HCL 0.2 MG TABLET PO SCH ×2 (06:00)
[2017-01-16] MEDS ORDERED: LABETALOL HCL 200 MG TABLET PO SCH (06:00)
[2017-01-16] MEDS ORDERED: HYDRALAZINE HCL 50 MG TABLET PO SCH (06:00)
[2017-01-16] MEDS: ACETAMINOPHEN 325 MG TABLET PO PRN ×2 (06:26→23:48)
[2017-01-16] MEDS ORDERED: CHLORTHALIDONE 25 MG TABLET PO SCH (10:00)
[2017-01-16] MEDS ORDERED: AMLODIPINE BESYLATE 10 MG TABLET PO SCH (10:00)
[2017-01-16] MEDS: ENOXAPARIN SODIUM INJ 40 MG/0.4 ML DISP.SYRIN SUBCUT SCH (10:03)
[2017-01-16] MEDS: ASPIRIN 325 MG TABLET PO SCH (10:04)
[2017-01-16] MEDS: INSULIN LISPRO 100 UNIT/ML 3 ML VIAL SUBCUT PRN ×3 (10:04→23:26)
[2017-01-16] MEDS: SPIRONOLACTONE 25 MG TABLET PO SCH (10:04)
[2017-01-16] MEDS ORDERED: CLOBETASOL PROPIONATE 0.05% OINTMENT 15 GM TP PRN (11:07)
[2017-01-16] MEDS ORDERED: METHOTREXATE SODIUM 2.5 MG TABLET PO ONE (11:45)
--- NOTE | 2017-01-16 12:22 | PDOC PROGRESS REPORT ---
Subjective Progress Note for:: 01/16/17 Subjective:: reason for visit: f/u malignant HTN, APPLE, paresthesias hospital course: TONYA JERONIMO is a 46 year old male with known difficult to control HTN requiring multidrug regimen with prior hx of CVA and mild residual paresthesias requiring prolonged hospitalizations for control of his BP returns to the ED from home when he noticed weakness and numbness of his Rt side and particularly his fingers. EMS called and found his initial BP > 200/100. During his last admit in 10/2016 he was very labile and actually became more symptomatic when we normalized his BP to <140/90 and seems to function better in the 160/90 range. He reports mild global, diffuse nonradiating APPLE without exac or alleviating factors and no other asct'd symptoms. By the time I saw him most of his paresthesias have resolved and his BP is 185/129 at present. we were asked to admit for further eval and management. It should be noted that he had moved to [facility] but just returned 2 wks ago and ran out of his meds over the last week, taking nothing for his HTN in >48hrs. unfortunately his BP dropped precipitously after 2100 dosing of several meds given. he notes "a funny feeling in his head, room started to spin and he started seeing things that weren't there" all of which improved with cessation of the meds and IVF bolus to get his BPs out of the 80s. he reports resolution of his paresthesias as well. ROS: he denies chest pain, palpitations, n/v/d, hearing or vision changes, abd pain; all systems reviewed, as above, remaining systems negative Physical Exam Vital Signs: Temp Pulse Resp BP Pulse Ox 97.9 F 63 20 124/70 100 01/16/17 07:55 01/16/17 07:55 01/16/17 07:55 01/16/17 07:55 01/16/17 07:55 Intake & Output 01/15/17 01/16/17 01/17/17 06:59 06:59 06:59 Intake Total 1505 Output Total 3 Balance 1502 Weight 111.1 kg General appearance: PRESENT: no acute distress, well-developed, well-nourished Head exam: PRESENT: atraumatic, normocephalic Eye exam: PRESENT: EOMI, PERRLA. ABSENT: conjunctival injection, scleral icterus Mouth exam: PRESENT: moist, neck supple Neck exam: PRESENT: full ROM. ABSENT: tenderness Respiratory exam: PRESENT: clear to auscultation bernardo. ABSENT: accessory muscle use Cardiovascular exam: PRESENT: RRR. soft diastolic murmur Pulses: PRESENT: normal radial pulses, normal dorsalis pedis pul GI/Abdominal exam: PRESENT: normal bowel sounds, soft. ABSENT: tenderness Extremities exam: ABSENT: calf tenderness, pedal edema Musculoskeletal exam: PRESENT: ambulatory, full ROM Neurological exam: PRESENT: alert, awake, oriented to person, oriented to place , oriented to time, oriented to situation, reflexes normal, normal gait. ABSENT : ataxia Skin exam: PRESENT: dry, warm Results Laboratory Results: 01/15/17 01/16/17 20:11 01:57 Troponin I 0.018 < 0.012 Assessment & Plan - Diagnosis (1) Malignant essential hypertension Is this a current diagnosis for this admission?: YesPlan: actually dropped his BP last night and we will have to carefully reintroduce his multilayered regimen with close monitoring of his hemodynamics. (2) Plaque psoriasis Is this a current diagnosis for this admission?: YesPlan: worse; resume his home clobetasol ointment and monitor for response (3) Urinary hesitancy Is this a current diagnosis for this admission?: YesPlan: continue flomax (4) Valvular heart disease Is this a current diagnosis for this admission?: Yes (5) Full code status Is this a current diagnosis for this admission?: Yes - Time Time Spent with patient: 25-34 minutes
[2017-01-16] MEDS: CLONIDINE HCL 0.2 MG TABLET PO SCH ×2 (13:55→21:26)
[2017-01-16] MEDS: LABETALOL HCL 200 MG TABLET PO SCH ×2 (13:55→21:26)
--- NOTE | 2017-01-16 14:49 | Physician Advisory Note ---
Physician Advisor ProgressNote .: Pursuant to the plan for [facility], I have reviewed the medical record for this patient. Physician Advisor Statement: Please consider documentin. "Hypertensive emergency with associated RUE weakness & APPLE" (see discussion below) 2. "Left hemiparesis due to past CVA" Discussion of #1 above: - "Accelerated HTN" & "malignant HTN" were old terms that were the only ones recognized by the previous ICD-10 coding system as being something other than benign HTN, so documentation had to include them in order to get credit for the appropriate severity of illness when a pt had Hypertensive Emergency. However, as of 03/24/16, multiple codes were changed, requiring changes in how we document. - Now: "Accelerated HTN" or malignant HTN is taken to mean the same thing as "benign/essential HTN". - If pt has uBT589+ &/or wHA398+ , & sx of possible organ damage, such as acute neuro sx, APPLE, CP, SOB, acute exac of CHF, ARF, ... then "Hypertensive emergency" is now the accepted term, & we need documentation of what s/s were caused by the HTN. If pt has iYE712+ &/or lNI131+ , without associated sx, then "HTNive urgency " is now the accepted term. Thanks for your help (& patience)! CK
--- NOTE | 2017-01-16 16:20 | EKG REPORT ---
SEVERITY:- ABNORMAL ECG - SINUS RHYTHM LEFT ATRIAL ABNORMALITY LEFT ANTERIOR FASCICULAR BLOCK LEFT VENTRICULAR HYPERTROPHY ABNORMAL T, CONSIDER ISCHEMIA, LATERAL LEADS BORDERLINE PROLONGED QT INTERVAL : Confirmed by: Loyda Fernandes MD 16-Jan-2017 16:20:21
[2017-01-16] MEDS ORDERED: TAMSULOSIN HCL 0.4 MG CAP.SR.24H PO SCH (18:00)
[2017-01-16] MEDS: ATORVASTATIN CALCIUM 80 MG TABLET PO SCH (21:17)
[2017-01-16] MEDS: CHLORTHALIDONE 25 MG TABLET PO SCH (21:26)
[2017-01-17] MEDS: CLONIDINE HCL 0.2 MG TABLET PO SCH ×3 (05:54→21:18)
[2017-01-17] MEDS: LANSOPRAZOLE 15 MG TAB.RAP.DR PO SCH (05:55)
[2017-01-17] MEDS: LABETALOL HCL 200 MG TABLET PO SCH ×3 (05:55→21:21)
[2017-01-17] MEDS ORDERED: OXYCODONE-ACETAMINOPHEN 5-325 MG TABLET PO PRN (09:58)
--- NOTE | 2017-01-17 10:57 | RADIOLOGY REPORT (SQ) ---
EXAM DESCRIPTION: CAROTID DOPPLER COMPLETED DATE/TIME: 01/17/2017 10:40 am REASON FOR STUDY: acute neurologic syndrome COMPARISON: 04/30/2014. TECHNIQUE: Grayscale ultrasound, Doppler velocity and spectra, and color Doppler images acquired of the extra-cranial carotid and vertebral arteries. Images stored on PACS. LIMITATIONS: None. FINDINGS: RIGHT CAROTID CCA Velocities: Within normal limits. ICA Velocities Peak systolic 0.79 m/s. End diastolic 0.31 m/s. Proximal ICA/CCA peak systolic ratio 1.04. Spectra normal. No significant plaque. LEFT CAROTID CCA Velocities: Within normal limits. ICA Velocities Peak systolic 0.86 m/s. End diastolic 0.37 m/s. Proximal ICA/CCA peak systolic ratio 1.1. Spectra normal. No significant plaque. VERTEBRAL ARTERIES: Antegrade flow. Normal waveforms. SUBCLAVIAN ARTERIES: No finding. OTHER: No other significant finding. IMPRESSION: NO HEMODYNAMICALLY SIGNIFICANT STENOSIS. COMMENT: Quality ID #[id number]: Velocity criteria are extrapolated from the diameter data as defined by t he Society of Radiologists in Ultrasound Consensus Conference. Radiology 2003: 229; 340-346. TECHNICAL DOCUMENTATION: JOB ID: [id number]- All Rights Reserved
--- NOTE | 2017-01-17 12:03 | PDOC PROGRESS REPORT ---
Subjective Progress Note for:: 01/17/17 Subjective:: reason for visit: f/u malignant HTN, APPLE, paresthesias hospital course: TONYA JERONIMO is a 46 year old male with known difficult to control HTN requiring multidrug regimen with prior hx of CVA and mild residual paresthesias requiring prolonged hospitalizations for control of his BP returns to the ED from home when he noticed weakness and numbness of his Rt side and particularly his fingers. EMS called and found his initial BP > 200/100. During his last admit in 10/2016 he was very labile and actually became more symptomatic when we normalized his BP to <140/90 and seems to function better in the 160/90 range. He reports mild global, diffuse nonradiating APPLE without exac or alleviating factors and no other asct'd symptoms. By the time I saw him most of his paresthesias have resolved and his BP is 185/129 at present. we were asked to admit for further eval and management. It should be noted that he had moved to [facility] but just returned 2 wks ago and ran out of his meds over the last week, taking nothing for his HTN in >48hrs. unfortunately his BP dropped precipitously after reinitiation dosing of several meds. he noted "a funny feeling in his head, room started to spin and he started seeing things that weren't there" all of which improved with cessation of the meds and IVF bolus to get his BPs out of the 80s. he previously reported resolution of his paresthesias but now denies ever saying that and reporting his right arm is actually getting worse and involves his right leg as well, says "I lost all my power on that side", he is right hand dominant, and describing a "dullness" to the whole right side of his body. His APPLE is now more left sided and intensifying as well. ROS: he denies chest pain, palpitations, n/v/d, hearing or vision changes, abd pain; all systems reviewed, as above, remaining systems negative Physical Exam Vital Signs: Temp Pulse Resp BP Pulse Ox 98.6 F 66 20 122/77 100 01/17/17 08:25 01/17/17 08:25 01/17/17 08:25 01/17/17 08:25 01/17/17 08:25 Intake & Output 01/16/17 01/17/17 01/18/17 06:59 06:59 06:59 Intake Total 1505 1798 Output Total 3 1050 Balance 1502 748 Weight 111.1 kg 114.4 kg General appearance: PRESENT: no acute distress, obese, well-developed, well- nourished Head exam: PRESENT: atraumatic, normocephalic Eye exam: PRESENT: EOMI, PERRLA. ABSENT: conjunctival injection, scleral icterus Neck exam: PRESENT: full ROM. ABSENT: carotid bruit, JVD, lymphadenopathy, meningismus, tenderness Respiratory exam: PRESENT: clear to auscultation bernardo. ABSENT: accessory muscle use Cardiovascular exam: PRESENT: RRR, systolic murmur - soft 2/6 Pulses: PRESENT: normal carotid pulses, normal radial pulses, normal dorsalis pedis pul Vascular exam: PRESENT: normal capillary refill GI/Abdominal exam: PRESENT: normal bowel sounds, soft. ABSENT: organolmegaly, tenderness Extremities exam: PRESENT: full ROM. ABSENT: calf tenderness, pedal edema Neurological exam: PRESENT: alert, awake, oriented to person, oriented to place , oriented to time, oriented to situation, CN II-XII grossly intact, motor sensory deficit - loss of sensation to light touch Rt side from head to foot, other - functional weakness Rt side compared to left affected arm and leg distal muscles but sparing girdle muscles. ABSENT: reflexes normal - patella reflexes diminished bilat, aphasic Psychiatric exam: PRESENT: anxious, appropriate affect Focused psych exam: ABSENT: paranoid, pressured speech, psychomotor agitation, restlessness Skin exam: PRESENT: dry, warm Results Laboratory Results: 01/15/17 01/16/17 20:11 01:57 Troponin I 0.018 < 0.012 Assessment & Plan - Diagnosis (1) CVA (cerebral vascular accident) Qualifiers: CVA mechanism: unspecified Qualified Code(s): I63.9 - Cerebral infarction, unspecified Is this a current diagnosis for this admission?: YesPlan: new: i suspect his progressive neurologic symptoms reflect poorly and strongly suggest acute ischemic event thereby warranting continued aggressive treatment. already on antiplt tx and high dose statin but will need to try to take a more judicious lowering of his BP, I think targeting 150-160/90-100 for now. resume MEND exams, stroke education, PT/OT/ST to regain his strength. It is entirely possible this is related to lowering his BPs beyond what his brain/ perfusion can tolerate but we are really caught in a difficult place as his severely elevated BPs also put him at risk for CVA and he is very labile when treated. will ck carotid dopplers and CTA head, he refuses MRI. ck B12 (2) Hypertensive emergency Is this a current diagnosis for this admission?: YesPlan: with end organ damage of cephalgia and paresthesias; continue treatment as noted above, in fact his neurologic symptoms may be related to labile BPs dropping below perfusion threshold for his brain (3) Plaque psoriasis Is this a current diagnosis for this admission?: YesPlan: better with resuming his home clobetasol ointment and monitor for response (4) Urinary hesitancy Is this a current diagnosis for this admission?: YesPlan: now denies this was ever a problem and wants to discontinue flomax thinking it is partly to blame for "the way I feel". (5) Valvular heart disease Is this a current diagnosis for this admission?: Yes (6) Full code status Is this a current diagnosis for this admission?: Yes - Time Time Spent with patient: 35 or more minutes Medications reviewed and adjusted accordingly: Yes
[2017-01-17] MEDS: ENOXAPARIN SODIUM INJ 40 MG/0.4 ML DISP.SYRIN SUBCUT SCH (12:12)
[2017-01-17] MEDS: CHLORTHALIDONE 25 MG TABLET PO SCH ×2 (12:12→21:21)
[2017-01-17] MEDS: ASPIRIN 325 MG TABLET PO SCH (12:13)
[2017-01-17] MEDS: SPIRONOLACTONE 25 MG TABLET PO SCH (12:13)
[2017-01-17] MEDS: INSULIN LISPRO 100 UNIT/ML 3 ML VIAL SUBCUT PRN ×3 (13:08→21:21)
[2017-01-17] MEDS ORDERED: METOPROLOL TARTRATE PF/INJ 5 MG/5 ML SDV IV PRN (13:16)
[2017-01-17] MEDS ORDERED: ONDANSETRON HCL INJ/PF 4 MG/2 ML SDV IV PRN (13:19)
--- NOTE | 2017-01-17 15:14 | RADIOLOGY REPORT (SQ) ---
EXAM DESCRIPTION: CT HEAD WITHOUT COMPLETED DATE/TIME: 01/17/2017 2:54 pm REASON FOR STUDY: worsening neurologic syndrome, eval for bleed COMPARISON: 01/15/2017 TECHNIQUE: Axial images acquired through the brain without intravenous contrast. Images reviewed wi th bone, brain and subdural windows. Images stored on PACS. All CT scanners at this facility use dose modulation, iterative reconstruction, and/or weight based d osing when appropriate to reduce radiation dose to as low as reasonably achievable (ALARA). [facility]: Dose Right [facility]: CareDose [facility]: Dose Right [facility]: Teradose 4D [facility]: Smart [employer]Q RADIATION DOSE: Up-to-date CT equipment and radiation dose reduction techniques were employed. CTDIv ol: 49.0 mGy. DLP: 881 mGy-cm. mGy. LIMITATIONS: None. FINDINGS: VENTRICLES: Normal size and contour. CEREBRUM: No masses. No hemorrhage. No midline shift. Normal menendez/white matter differentiation. N o evidence for acute infarction. CEREBELLUM: No masses. No hemorrhage. No alteration of density. No evidence for acute infarction. EXTRAAXIAL SPACES: No fluid collections. No masses. ORBITS AND GLOBE: No intra- or extraconal masses. Normal contour of globe without masses. CALVARIUM: No fracture. PARANASAL SINUSES: No fluid or mucosal thickening. SOFT TISSUES: No mass or hematoma. OTHER: No other significant finding. IMPRESSION: NORMAL BRAIN CT WITHOUT CONTRAST. TECHNICAL DOCUMENTATION: JOB ID: [id number] Quality ID # [id number]: Final reports with documentation of one or more dose reduction techniques (e.g., Au tomated exposure control, adjustment of the mA and/or kV according to patient size, use of iterative reconstruction technique) 2010 [employer]- All Rights Reserved
[2017-01-17] MEDS: ATORVASTATIN CALCIUM 80 MG TABLET PO SCH (21:18)
[2017-01-18] MEDS: LANSOPRAZOLE 15 MG TAB.RAP.DR PO SCH (05:29)
[2017-01-18] MEDS: LABETALOL HCL 200 MG TABLET PO SCH ×3 (05:31→22:06)
[2017-01-18 06:14] LABS: ABSOLUTE EOSINOPHILS # (AUTO) 0.1 10^3/uL (0.0-0.6); ABSOLUTE LYMPHOCYTES (AUTO) 1.2 10^3/uL (0.5-4.7); ABSOLUTE MONOCYTES (AUTO) 0.3 10^3/uL (0.1-1.4); ABSOLUTE NEUT (AUTO) 2.4 10^3/uL (1.7-8.2); BASOPHILS % (AUTO) 0.6 % (0-2); EOSINOPHILS % (AUTO) 2.7 % (0-6); HEMATOCRIT 36.5 % (37.9-51.0); HEMOGLOBIN 12.2 g/dL (13.5-17.0); HGB HCT DIFFERENCE 0.1; LYMPHOCYTES % (AUTO) 30.3 % (13-45); MEAN CORPUSCULAR HEMOGLOBIN 28.5 pg (27.0-33.4); MEAN CORPUSCULAR HGB CONC 33.4 g/dL (32.0-36.0); MEAN CORPUSCULAR VOLUME 86 fl (80-97); MONOCYTES % (AUTO) 7.2 % (3-13); RED BLOOD COUNT 4.26 10^6/uL (4.35-5.55); RED CELL DISTRIBUTION WIDTH 14.7 % (11.5-14.0); SEGMENTED NEUTROPHILS % (AUTO) 59.2 % (42-78)
[2017-01-18 06:35] LABS: ANION GAP 8 (5-19); BLOOD UREA NITROGEN 15 mg/dL (7-20); CALCIUM 9.1 mg/dL (8.4-10.2); CARBON DIOXIDE 28 mmol/L (22-30); CHLORIDE 100 mmol/L (98-107); CREATININE RESULT 0.99 mg/dL (0.52-1.25); GLUCOSE 206 mg/dL (75-110); SODIUM 136.2 mmol/L (137-145)
--- NOTE | 2017-01-18 10:47 | PDOC PROGRESS REPORT ---
Subjective Progress Note for:: 01/18/17 Subjective:: reason for visit: f/u malignant HTN, APPLE, paresthesias hospital course: TONYA JERONIMO is a 46 year old male with known difficult to control HTN requiring multidrug regimen with prior hx of CVA and mild residual paresthesias requiring prolonged hospitalizations for control of his BP returns to the ED from home when he noticed weakness and numbness of his Rt side and particularly his fingers. EMS called and found his initial BP > 200/100. During his last admit in 10/2016 he was very labile and actually became more symptomatic when we normalized his BP to <140/90 and seems to function better in the 160/90 range. He reports mild global, diffuse nonradiating APPLE without exac or alleviating factors and no other asct'd symptoms. By the time I saw him most of his paresthesias have resolved and his BP is 185/129 at present. we were asked to admit for further eval and management. It should be noted that he had moved to [facility] but just returned 2 wks ago and ran out of his meds over the last week, taking nothing for his HTN in >48hrs. unfortunately his BP dropped precipitously after reinitiation dosing of several meds. he noted "a funny feeling in his head, room started to spin and he started seeing things that weren't there" all of which improved with cessation of the meds and IVF bolus to get his BPs out of the 80s. he previously reported resolution of his paresthesias but now denies ever saying that and reporting his right arm is actually getting worse and involves his right leg as well, says "I lost all my power on that side", he is right hand dominant, and describing a "dullness" to the whole right side of his body. His APPLE is migrating and waxing/waning, currently gone, previously sharp, throbbing pain on left. he now reports his inner Rt arm hurts with movement and review of therapy notes indicates this pain limited his participation. ROS: he denies chest pain, palpitations, n/v/d, hearing or vision changes, abd pain; all systems reviewed, as above, remaining systems negative Physical Exam Vital Signs: Temp Pulse Resp BP Pulse Ox 98.2 F 66 20 128/82 H 99 01/18/17 07:46 01/18/17 07:46 07/28/17 07:46 01/18/17 07:46 01/18/17 07:46 Intake & Output 01/17/17 01/18/17 01/19/17 06:59 06:59 06:59 Intake Total 1798 3028 Output Total 1050 5785 Balance 748 4373 Weight 114.4 kg 113.9 kg General appearance: PRESENT: no acute distress, obese, well-developed, well- nourished Head exam: PRESENT: atraumatic, normocephalic Eye exam: PRESENT: EOMI, PERRLA. ABSENT: conjunctival injection, scleral icterus Neck exam: PRESENT: full ROM. ABSENT: carotid bruit, JVD, lymphadenopathy, meningismus, tenderness. no crepitus to active/passive ROM testing, no point tenderness, step off deformity and no radicular symptoms with spinal compression Respiratory exam: PRESENT: clear to auscultation bernardo. ABSENT: accessory muscle use Cardiovascular exam: PRESENT: RRR, systolic murmur - soft 2/6 Pulses: PRESENT: normal carotid pulses, normal radial pulses, normal dorsalis pedis pul Vascular exam: PRESENT: normal capillary refill, no carotid bruit GI/Abdominal exam: PRESENT: normal bowel sounds, soft. ABSENT: organolmegaly, tenderness Extremities exam: PRESENT: full ROM. ABSENT: calf tenderness, pedal edema Neurological exam: PRESENT: alert, awake, oriented to person, oriented to place , oriented to time, oriented to situation, CN II-XII grossly intact, motor sensory deficit - loss of sensation to light touch Rt side from head to foot, other - functional weakness Rt side compared to left affected arm and leg distal muscles but sparing girdle muscles. ABSENT: reflexes normal - patella reflexes diminished bilat, aphasic MSK: full ROM of the Rt arm but external rotation of the shoulder reproduces his pain, no step off deformity even with traction applied, no tendonitis or joint space edema or narrowing; good brachial pulse, no LAD axilla Psychiatric exam: PRESENT: anxious, appropriate affect Focused psych exam: ABSENT: paranoid, pressured speech, psychomotor agitation, restlessness Skin exam: PRESENT: dry, warm Results Laboratory Results: 01/18/17 05:26 01/18/17 05:26 01/18/17 01/18/17 05:26 05:26 WBC 4.0 RBC 4.26 L Hgb 12.2 L Hct 36.5 L MCV 86 MCH 28.5 MCHC 33.4 RDW 14.7 H Plt Count 222 Seg Neutrophils % 59.2 Lymphocytes % 30.3 Monocytes % 7.2 Eosinophils % 2.7 Basophils % 0.6 Absolute Neutrophils 2.4 Absolute Lymphocytes 1.2 Absolute Monocytes 0.3 Absolute Eosinophils 0.1 Absolute Basophils 0.0 Sodium 136.2 L Potassium 4.0 Chloride 100 Carbon Dioxide 28 Anion Gap 8 BUN 15 Creatinine 0.99 Est GFR ( Amer) > 60 Est GFR (Non-Af Amer) > 60 Glucose 206 H Calcium 9.1 Vitamin B12 299.0 01/15/17 01/16/17 01/18/17 20:11 01:57 05:26 Troponin I 0.018 < 0.012 0.017 Impressions: Head CT 01/17/17 00:00 IMPRESSION: NORMAL BRAIN CT WITHOUT CONTRAST. Carotid Doppler Study 01/17/17 09:58 IMPRESSION: NO HEMODYNAMICALLY SIGNIFICANT STENOSIS. Status: Imported from PACS Assessment & Plan - Diagnosis (1) Right arm pain Is this a current diagnosis for this admission?: YesPlan: new: not clear whether is related to underlying presentation or not. He is right hand dominant but denies trauma or overuse. I suppose he could have impingement syndrome but his exam is equivocal at best and he cannot/will not undergo MRI. I can find no cervical spine or shoulder pathology on exam to warrant further advanced testing at present. very strange presentation and I think a more expectant approach is best for now. (2) CVA (cerebral vascular accident) Qualifiers: CVA mechanism: unspecified Qualified Code(s): I63.9 - Cerebral infarction, unspecified Is this a current diagnosis for this admission?: YesPlan: unchanged: i suspect his progressive neurologic symptoms reflect poorly and strongly suggest acute ischemic event in a probable LF MCA territory thereby warranting continued aggressive treatment. already on antiplt tx and high dose statin but will need to try to take a more judicious lowering of his BP, I think targeting 150-160/90-100 for now. resume MEND exams, stroke education, PT /OT/ST to regain his strength. It is entirely possible this is related to lowering his BPs beyond what his brain/perfusion can tolerate but we are really caught in a difficult place as his severely elevated BPs also put him at risk for CVA and he is very labile when treated. carotid dopplers and repeat CT head all negative, he refuses MRI and has hives with valium so cannot even try to sedate him. B12 normal. His is a very difficult case to sort out with his migratory symptoms, vague complaints and inability or unwillingness to undergo certain testing. (3) Hypertensive emergency Is this a current diagnosis for this admission?: Yes (4) Plaque psoriasis Is this a current diagnosis for this admission?: Yes (5) Urinary hesitancy Is this a current diagnosis for this admission?: Yes (6) Valvular heart disease Is this a current diagnosis for this admission?: Yes (7) Full code status Is this a current diagnosis for this admission?: Yes - Time Time Spent with patient: 25-34 minutes Medications reviewed and adjusted accordingly: Yes
[2017-01-18] MEDS: SPIRONOLACTONE 25 MG TABLET PO SCH (11:25)
[2017-01-18] MEDS: CHLORTHALIDONE 25 MG TABLET PO SCH ×2 (11:25→22:06)
[2017-01-18] MEDS: ASPIRIN 325 MG TABLET PO SCH (11:27)
[2017-01-18] MEDS: ENOXAPARIN SODIUM INJ 40 MG/0.4 ML DISP.SYRIN SUBCUT SCH (11:27)
[2017-01-18] MEDS: INSULIN LISPRO 100 UNIT/ML 3 ML VIAL SUBCUT PRN (17:25)
[2017-01-18] MEDS: ATORVASTATIN CALCIUM 80 MG TABLET PO SCH (22:06)
[2017-01-19] MEDS: LANSOPRAZOLE 15 MG TAB.RAP.DR PO SCH (06:48)
[2017-01-19] MEDS: LABETALOL HCL 200 MG TABLET PO SCH (06:49)
[2017-01-19 09:29] VITALS: BP 154/96
[2017-01-19] MEDS: INSULIN LISPRO 100 UNIT/ML 3 ML VIAL SUBCUT PRN (10:15)
[2017-01-19] MEDS: SPIRONOLACTONE 25 MG TABLET PO SCH (10:15)
[2017-01-19] MEDS: ENOXAPARIN SODIUM INJ 40 MG/0.4 ML DISP.SYRIN SUBCUT SCH (10:15)
[2017-01-19] MEDS: CHLORTHALIDONE 25 MG TABLET PO SCH (10:16)
[2017-01-19] MEDS: ASPIRIN 325 MG TABLET PO SCH (10:16)
--- NOTE | 2017-01-19 13:37 | PDOC DISCHARGE SUMMARY ---
General - Admit/Disc Date/PCP Admission Date/Primary Care Provider: 01/15/17 16:40 Discharge Date: 01/19/17 - Discharge Diagnosis (1) Right arm pain Is this a current diagnosis for this admission?: Yes (2) CVA (cerebral vascular accident) Is this a current diagnosis for this admission?: Yes (3) Hypertensive emergency Is this a current diagnosis for this admission?: Yes (4) Plaque psoriasis Is this a current diagnosis for this admission?: Yes (5) Urinary hesitancy Is this a current diagnosis for this admission?: Yes (6) Valvular heart disease Is this a current diagnosis for this admission?: Yes (7) Full code status Is this a current diagnosis for this admission?: Yes - Additional Information Resuscitation Status: Full Code Discharge Diet: Diabetic Discharge Activity: Activity As Tolerated, Slowly Increase Activity Home Medications: Acetaminophen [Tylenol 325 mg Tablet] 650 mg PO Q4HP PRN tablet 01/19/17 Aspirin [Aspirin 325 mg Tablet] 325 mg PO DAILY tablet 01/19/17 Atorvastatin Calcium [Lipitor 80 mg Tablet] 80 mg PO QHS #30 tablet 01/19/17 Chlorthalidone [Hygroton 25 mg Tablet] 25 mg PO Q12 #60 tablet 01/19/17 Clobetasol Propionate [Temovate 0.05% Ointment 15 gm] 1 applic TP BIDP PRN #1 tube 01/19/17 Labetalol HCl [Normodyne 200 mg Tablet] 200 mg PO BID #60 tablet 01/19/17 Spironolactone [Aldactone 25 mg Tablet] 25 mg PO DAILY #30 tablet 01/19/17 History of Present Illness Patient complains of: rt arm pain and nausea History of Present Illness: SHARON JERONIMO is a 46 year old male with known difficult to control HTN requiring multidrug regimen with prior hx of CVA and mild residual paresthesias requiring prolonged hospitalizations for control of his BP returns to the ED from home when he noticed weakness and numbness of his Rt side and particularly his fingers. Hospital Course Hospital Course: EMS called and found his initial BP >200/100. During his last admit in 10/2016 he was very labile and actually became more symptomatic when we normalized his BP to <140/90 and seems to function better in the 160/90 range. He reports mild global, diffuse nonradiating APPLE without exac or alleviating factors and no other asct'd symptoms. By the time I saw him most of his paresthesias have resolved and his BP is 185/129 at present. we were asked to admit for further eval and management. It should be noted that he had moved to [facility] but just returned 2 wks ago and ran out of his meds over the last week, taking nothing for his HTN in >48hrs. unfortunately his BP dropped precipitously after reinitiation dosing of several meds. he noted "a funny feeling in his head, room started to spin and he started seeing things that weren't there" all of which improved with cessation of the meds and IVF bolus to get his BPs out of the 80s. he previously reported resolution of his paresthesias but now denies ever saying that and reporting his right arm is actually getting worse and involves his right leg as well, says "I lost all my power on that side", he is right hand dominant, and describing a "dullness" to the whole right side of his body. His APPLE is migrating and waxing/waning, currently gone, previously sharp, throbbing pain on left. he now reports his inner Rt arm hurts with movement and review of therapy notes indicates this pain limited his participation. His exam is benign other than loss of sensation but no etiology for his pain is identified. 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 I am not sure how much is supratentorial and anxiety vs true functional deficit. Nevertheless, his BPs are much better controlled and his symptoms, when present, localize only to the Right arm amenable to outpt PT/OT and he is stable for discharge home. I do not think he should drive or operate heavy equipment until his symptoms dramatically improve or resolve but the patient became angry at this and stormed out before nursing could coordinate his discharge, insisting they is going to drive and there's nothing we can do about it. At this point it is unclear how compliant he will be with his Rx regimen or followup. Physical Exam Vital Signs: Temp Pulse Resp BP Pulse Ox 98.8 F 71 16 154/96 H 100 01/19/17 10:20 01/19/17 10:20 01/19/17 10:20 01/19/17 10:20 01/19/17 10:20 Intake & Output 01/18/17 01/19/17 01/20/17 06:59 06:59 06:59 Intake Total 3028 1910 Output Total 1475 750 Balance 1553 1160 Weight 113.9 kg 114.3 kg General appearance: PRESENT: no acute distress, well-developed, well-nourished Head exam: PRESENT: atraumatic Eye exam: PRESENT: EOMI Respiratory exam: PRESENT: clear to auscultation bernardo Neurological exam: PRESENT: alert, awake, oriented to person, oriented to place , oriented to time, oriented to situation. ABSENT: abnormal gait, ataxia Results Laboratory Results: 01/18/17 05:26 01/18/17 05:26 01/15/17 01/16/17 01/18/17 20:11 01:57 05:26 Troponin I 0.018 < 0.012 0.017 Impressions: Head CT 01/17/17 00:00 IMPRESSION: NORMAL BRAIN CT WITHOUT CONTRAST. Carotid Doppler Study 01/17/17 09:58 IMPRESSION: NO HEMODYNAMICALLY SIGNIFICANT STENOSIS. Qualifiers PATEINT BEING DISCHARGED WITH ANY OF THE FOLLOWING DIAGNOSIS?: Stroke VTE patient discharged on overlapping Therapy?: No Reason(s) for not prescribing Overlap Therapy:: Not indicated Stroke Pt being discharged on Anti-thrombolytic therapy?: Yes Stroke Pt being discharged on Anti-coagulation therapy?: No Reason(s) for not prescribing Anti-coagulation therapy:: Not indicated Stroke Pt being discharged on Statins?: Yes Plan Discharge Plan: home with home health and outpt PT/OT, asa, statin and HTN regimen with f/u with dr beltran for further titration.
== END 2017-01-19 11:09 | disposition home health service (06) | DRG 65 ==
LOC: ER 13:07 → EH 16:40 → UNDOADMIN 16:47 → 3S 19:59
DX: I63.9 Cerebral infarction, unspecified (principal); I16.1 Hypertensive emergency; G81.91 Hemiplegia, unspecified affecting right dominant side; I69.398 Other sequelae of cerebral infarction; R29.810 Facial weakness; L40.0 Psoriasis vulgaris; G44.89 Other headache syndrome; E11.9 Type 2 diabetes mellitus without complications; K21.9 Gastro-esophageal reflux disease without esophagitis; R20.9 Unspecified disturbances of skin sensation; R39.11 Hesitancy of micturition; I25.2 Old myocardial infarction; Z87.74 Personal history of (corrected) congenital malformations of heart and circulatory system; Z95.5 Presence of coronary angioplasty implant and graft; Z86.718 Personal history of other venous thrombosis and embolism; Z91.013 Allergy to seafood; Z88.8 Allergy status to other drugs, medicaments and biological substances; Z88.5 Allergy status to narcotic agent; Z79.899 Other long term (current) drug therapy; Z79.01 Long term (current) use of anticoagulants; Z79.84 Long term (current) use of oral hypoglycemic drugs; Z91.19 Patient's noncompliance with other medical treatment and regimen; Z82.61 Family history of arthritis
CPT/HCPCS: 36415; 70450; 80048; 80053; 82607; 82962; 84484; 85025; 93005; 93010; 93880; 99291; G8978-GP; G8979-GP; G8987-GO; G8988-GO; G8996-GN; G8997-GN; G8998-GN; J1650; J1815; J3490; J7030; J8610

== ENCOUNTER 2017-03-04 13:45 | Emergency (ER) | payer MEDICARE ==
[2017-03-04 13:55] VITALS: BP 200/135
--- NOTE | 2017-03-04 14:19 | ER Document Report ---
ED Skin Rash/Insect Bite/Abscs - General Chief Complaint: Rash Stated Complaint: RASH Time Seen by Provider: 03/04/17 14:07 Mode of Arrival: Ambulatory Information source: Patient TRAVEL OUTSIDE OF THE [place] IN LAST 30 DAYS: No - HPI Patient complains to provider of: Skin rash/lesion Onset: Last week Onset/Duration: Gradual, Persistent Quality of pain: No pain Skin Character: Urticarial Quality of rash: Itchy Notes: Patient is a 46-year-old male who presents to the emergency room complaining of diffuse itchy rash that has been going on for a little over a week now, he denies contact with any new lotions, detergents, soaps, foods, medications, he does have a history of hypertension and reports that his systolic blood pressure of 200 today is normal or low for him, he denies any chest pain, no headache, no nausea or vomiting, no history of similar rash previously - Related Data Allergies/Adverse Reactions: iodine [Iodine] Allergy (Severe, Verified 03/04/17 13:54) SWELLING Shellfish * [Shellfish] Allergy (Severe, Verified 03/04/17 13:54) Anaphylaxis morphine [Morphine] Allergy (Mild, Verified 03/04/17 13:54) diazepam [From Valium] Allergy (Verified 03/04/17 13:54) furosemide [From Lasix] Allergy (Verified 03/04/17 13:54) Past Medical History - General Information source: Patient - Social History Smoking Status: Unknown if Ever Smoked Family History: Reviewed & Not Pertinent, Arthritis, CAD, CVA, DM, Hyperlipidemia, Hypertension, Malignancy, Other - Past Medical History Cardiac Medical History: Reports: Hx Coronary Artery Disease, Hx DVT - right leg., Hx Heart Attack, Hx Hypercholesterolemia, Hx Hypertension, Hx Heart Murmur Pulmonary Medical History: Denies: Hx Asthma, Hx COPD, Hx Tuberculosis Neurological Medical History: Reports: Hx Cerebrovascular Accident - Lt sided weakness, Hx Seizures Endocrine Medical History: Reports: Hx Diabetes Mellitus Type 1, Hx Diabetes Mellitus Type 2. Denies: Hx Hyperthyroidism, Hx Hypothyroidism Renal/ Medical History: Reports: Hx Kidney Stones. Denies: Hx Peritoneal Dialysis GI Medical History: Reports: Hx Gastroesophageal Reflux Disease. Denies: Hx Cirrhosis, Hx Hepatitis Musculoskeltal Medical History: Reports Hx Arthritis, Reports Hx Muscle Weakness - Left Skin Medical History: Reports Hx Eczema, Denies Hx MRSA, Reports Hx Psoriasis Psychiatric Medical History: Denies: Hx Depression, Hx Schizoaffective Disorder Infectious Medical History: Denies: Hx Hepatitis, Hx MRSA Past Surgical History: Reports: Hx Cardiac Catheterization, Hx Cardiac Surgery - VSD having four previous surgeries as a child; heart valve defect, Hx Open Heart Surgery - VSD having four previous surgeries as a child; heart valve defect, Hx Vascular Surgery - Stents in right leg, Other - 4 separate operations for ventricular septal defect as a child.. Denies: Hx Pacemaker - Immunizations Immunizations up to date: Yes Hx Diphtheria, Pertussis, Tetanus Vaccination: Yes Hx Pneumococcal Vaccination: 03/24/13 Review of Systems - Review of Systems Constitutional: No symptoms reported EENT: No symptoms reported Cardiovascular: No symptoms reported Respiratory: No symptoms reported Gastrointestinal: No symptoms reported Genitourinary: No symptoms reported Male Genitourinary: No symptoms reported Musculoskeletal: No symptoms reported Skin: See HPI Hematologic/Lymphatic: No symptoms reported Neurological/Psychological: No symptoms reported -: Yes All other systems reviewed and negative Physical Exam - Vital signs Vitals: Temp Pulse Resp BP Pulse Ox 98.6 F 100 20 200/135 H 98 03/04/17 13:52 03/04/17 13:52 03/04/17 13:52 03/04/17 13:52 03/04/17 13:52 - Notes Notes: - General General appearance: Appears well, Alert In distress: None - HEENT Head: Normocephalic, Atraumatic Eyes: Normal Conjunctiva: Normal Extraocular movements intact: Yes Eyelashes: Normal Pupils: PERRL - Respiratory Respiratory status: No respiratory distress - Cardiovascular Rhythm: Regular - Abdominal Inspection: Normal - Back Back: Normal - Extremities General upper extremity: Normal inspection General lower extremity: Normal inspection - Neurological Neuro grossly intact: Yes Orientation: AAOx4 Eric Coma Scale Eye Opening: Spontaneous Eric Coma Scale Verbal: Oriented Eric Coma Scale Motor: Obeys Commands Eric Coma Scale Total: 15 - Psychological Associated symptoms: Normal affect, Normal mood - Skin Skin Temperature: Warm Skin Moisture: Dry Skin Color: Diffuse indurated urticarial rash on extremities, trunk, no vesicles , no weeping, no drainage Course - Vital Signs Vital signs: Temp Pulse Resp BP Pulse Ox 98.6 F 100 20 200/135 H 98 03/04/17 13:52 03/04/17 13:52 03/04/17 13:52 03/04/17 13:52 03/04/17 13:52 Discharge - Discharge Clinical Impression: Atopic dermatitis Qualifiers: Atopic dermatitis type: unspecified Qualified Code(s): L20.9 - Atopic dermatitis, unspecified Condition: Stable Disposition: HOME, SELF-CARE Additional Instructions: Follow up with your primary care provider in one to 2 days. Return to the emergency room immediately if symptoms worsen or any additional concerns. Prescriptions: Diphenhydramine HCl [Benadryl 25 Mg Capsule] 25 mg PO Q6 #30 capsule Famotidine [Pepcid 20 mg Tablet] 20 mg PO BID #12 tablet Prednisone 40 mg PO DAILY #10 tablet
== END 2017-03-04 14:23 | disposition home or self-care (01) ==
LOC: ER 13:45
DX: L20.9 Atopic dermatitis, unspecified (principal); R21 Rash and other nonspecific skin eruption
CPT/HCPCS: 99282

== ENCOUNTER 2017-03-07 14:55 | Emergency (ER) | payer MEDICARE ==
[2017-03-07] MEDS ORDERED: NITROGLYCERIN 2% OINTMENT 1 GM PACKET TP ONE (15:47)
[2017-03-07] MEDS ORDERED: ASPIRIN 325 MG TABLET PO ONE (15:47)
[2017-03-07] MEDS ORDERED: NORMAL SALINE 1000 ML 1,000 ML IV ONE (15:47)
[2017-03-07] MEDS ORDERED: CLONIDINE HCL 0.2 MG TABLET PO ONE (15:47)
--- NOTE | 2017-03-07 15:50 | ER Document Report ---
ED Medical Screen (RME) - General Chief Complaint: Chest Pain Stated Complaint: CHEST PAIN Time Seen by Provider: 03/07/17 15:47 Mode of Arrival: Wheelchair Information source: Patient TRAVEL OUTSIDE OF THE [place] IN LAST 30 DAYS: No - HPI Patient complains to provider of: CP Onset: Yesterday - pt with onset of CP (and some lower abdominal pain) starting yesterday and continuing into today. States he normally runs elevated BP - Related Data Allergies/Adverse Reactions: iodine [Iodine] Allergy (Severe, Verified 03/07/17 15:21) SWELLING Shellfish * [Shellfish] Allergy (Severe, Verified 03/07/17 15:21) Anaphylaxis morphine [Morphine] Allergy (Mild, Verified 03/07/17 15:21) diazepam [From Valium] Allergy (Verified 03/07/17 15:21) furosemide [From Lasix] Allergy (Verified 03/07/17 15:21) Past Medical History - Social History Chew tobacco use (# tins/day): No Frequency of alcohol use: None Drug Abuse: None Family history: CAD - Past Medical History Cardiac Medical History: Reports: Hx Coronary Artery Disease, Hx DVT - right leg., Hx Heart Attack, Hx Hypercholesterolemia, Hx Hypertension, Hx Heart Murmur Pulmonary Medical History: Denies: Hx Asthma, Hx COPD, Hx Tuberculosis Neurological Medical History: Reports: Hx Cerebrovascular Accident - Lt sided weakness, Hx Seizures Endocrine Medical History: Reports: Hx Diabetes Mellitus Type 1, Hx Diabetes Mellitus Type 2. Denies: Hx Hyperthyroidism, Hx Hypothyroidism Renal/ Medical History: Reports: Hx Kidney Stones. Denies: Hx Peritoneal Dialysis GI Medical History: Reports: Hx Gastroesophageal Reflux Disease. Denies: Hx Cirrhosis, Hx Hepatitis Musculoskeltal Medical History: Reports Hx Arthritis, Reports Hx Muscle Weakness - Left Skin Medical History: Reports Hx Eczema, Denies Hx MRSA, Reports Hx Psoriasis Psychiatric Medical History: Denies: Hx Depression, Hx Schizoaffective Disorder Infectious Medical History: Denies: Hx Hepatitis, Hx MRSA Past Surgical History: Reports: Hx Cardiac Catheterization, Hx Cardiac Surgery - VSD having four previous surgeries as a child; heart valve defect, Hx Open Heart Surgery - VSD having four previous surgeries as a child; heart valve defect, Hx Vascular Surgery - Stents in right leg, Other - 4 separate operations for ventricular septal defect as a child.. Denies: Hx Pacemaker - Immunizations Immunizations up to date: Yes Hx Diphtheria, Pertussis, Tetanus Vaccination: Yes Physical Exam - Vital signs Vitals: Temp Pulse Resp BP Pulse Ox 98.5 F 92 16 202/145 H 97 03/07/17 15:19 03/07/17 15:19 03/07/17 15:19 03/07/17 15:19 03/07/17 15:19 Course - Vital Signs Vital signs: Temp Pulse Resp BP Pulse Ox 98.5 F 92 16 202/145 H 97 03/07/17 15:19 03/07/17 15:19 03/07/17 15:19 03/07/17 15:19 03/07/17 15:19
[2017-03-07] MEDS ORDERED: MAG HYDROX/AL HYDROX/SIMETH SUSP 30 ML UDCUP PO ONE (16:44)
[2017-03-07] MEDS ORDERED: METOCLOPRAMIDE HCL ORAL SOLN 10 MG/10 ML UDCUP PO ONE (16:44)
[2017-03-07] MEDS ORDERED: LIDOCAINE 2% VISCOUS SOLN 20 ML UDCUP PO ONE (16:44)
[2017-03-07 16:45] LABS: ABSOLUTE BASOPHILS # (AUTO) 0.1 10^3/uL (0.0-0.2); ABSOLUTE EOSINOPHILS # (AUTO) 0.1 10^3/uL (0.0-0.6); ABSOLUTE LYMPHOCYTES (AUTO) 2.4 10^3/uL (0.5-4.7); ABSOLUTE MONOCYTES (AUTO) 0.5 10^3/uL (0.1-1.4); ABSOLUTE NEUT (AUTO) 5.8 10^3/uL (1.7-8.2); BASOPHILS % (AUTO) 1.4 % (0-2); EOSINOPHILS % (AUTO) 0.6 % (0-6); HEMATOCRIT 42.3 % (37.9-51.0); HEMOGLOBIN 14.6 g/dL (13.5-17.0); HGB HCT DIFFERENCE 1.5; LYMPHOCYTES % (AUTO) 26.8 % (13-45); MEAN CORPUSCULAR HEMOGLOBIN 29.2 pg (27.0-33.4); MEAN CORPUSCULAR HGB CONC 34.5 g/dL (32.0-36.0); MEAN CORPUSCULAR VOLUME 85 fl (80-97); MONOCYTES % (AUTO) 5.5 % (3-13); RED BLOOD COUNT 4.99 10^6/uL (4.35-5.55); RED CELL DISTRIBUTION WIDTH 15.5 % (11.5-14.0); SEGMENTED NEUTROPHILS % (AUTO) 65.7 % (42-78); WHITE BLOOD COUNT 8.8 10^3/uL (4.0-10.5)
--- NOTE | 2017-03-07 16:49 | RADIOLOGY REPORT (SQ) ---
EXAM DESCRIPTION: CHEST PA/LAT COMPLETED DATE/TIME: 03/07/2017 4:35 pm REASON FOR STUDY: cp COMPARISON: Chest films 11/08/2016, 08/15/2016, 05/10/2016 EXAM PARAMETERS: NUMBER OF VIEWS: two views TECHNIQUE: Digital Frontal and Lateral radiographic views of the chest acquired. RADIATION DOSE: NA LIMITATIONS: none FINDINGS: LUNGS AND PLEURA: No opacities, masses or pneumothorax. No pleural effusion. MEDIASTINUM AND HILAR STRUCTURES: No masses or contour abnormalities. HEART AND VASCULAR STRUCTURES: Stable moderate to marked cardiomegaly and old tiny sternal wires from are remote prior thoracotomy BONES: No acute findings. HARDWARE: None in the chest. OTHER: No other significant finding. IMPRESSION: Stable cardiomegaly. No acute infiltrates TECHNICAL DOCUMENTATION: JOB ID: [id number] [employer]- All Rights Reserved
[2017-03-07 17:18] VITALS: BP 209/148
[2017-03-07 17:37] LABS: ALANINE AMINOTRANSFERASE 18 U/L (21-72); ALBUMIN 3.7 g/dL (3.5-5.0); ALKALINE PHOSPHATASE 96 U/L (38-126); ANION GAP 12 (5-19); ASPARTATE AMINO TRANSFERASE 23 U/L (17-59); BILIRUBIN,DIRECT 0.6 mg/dL (0.0-0.4); BLOOD UREA NITROGEN 18 mg/dL (7-20); CARBON DIOXIDE 19 mmol/L (22-30); CHLORIDE 101 mmol/L (98-107); CREATINE KINASE 70 U/L (55-170); CREATININE RESULT 1.02 mg/dL (0.52-1.25); GLUCOSE 226 mg/dL (75-110); LIPASE 49.6 U/L (23-300); SODIUM 131.9 mmol/L (137-145); TOTAL PROTEIN 7.2 g/dL (6.3-8.2)
--- NOTE | 2017-03-07 17:39 | ER Document Report ---
ED Cardiac - General Chief Complaint: Chest Pain Stated Complaint: CHEST PAIN Time Seen by Provider: 03/07/17 15:47 Mode of Arrival: Wheelchair Information source: Patient TRAVEL OUTSIDE OF THE [place] IN LAST 30 DAYS: No - HPI Patient complains to provider of: Chest pain - Related Data Allergies/Adverse Reactions: iodine [Iodine] Allergy (Severe, Verified 03/07/17 15:21) SWELLING Shellfish * [Shellfish] Allergy (Severe, Verified 03/07/17 15:21) Anaphylaxis morphine [Morphine] Allergy (Mild, Verified 03/07/17 15:21) diazepam [From Valium] Allergy (Verified 03/07/17 15:21) furosemide [From Lasix] Allergy (Verified 03/07/17 15:21) Past Medical History - General Information source: Patient - Social History Smoking Status: Never Smoker Chew tobacco use (# tins/day): No Frequency of alcohol use: None Drug Abuse: None Family History: Reviewed & Not Pertinent, Arthritis, CAD, CVA, DM, Hyperlipidemia, Hypertension, Malignancy, Other - Past Medical History Cardiac Medical History: Reports: Hx Coronary Artery Disease, Hx DVT - right leg., Hx Heart Attack, Hx Hypercholesterolemia, Hx Hypertension, Hx Heart Murmur Pulmonary Medical History: Denies: Hx Asthma, Hx COPD, Hx Tuberculosis Neurological Medical History: Reports: Hx Cerebrovascular Accident - Lt sided weakness, Hx Seizures Endocrine Medical History: Reports: Hx Diabetes Mellitus Type 1, Hx Diabetes Mellitus Type 2. Denies: Hx Hyperthyroidism, Hx Hypothyroidism Renal/ Medical History: Reports: Hx Kidney Stones. Denies: Hx Peritoneal Dialysis GI Medical History: Reports: Hx Gastroesophageal Reflux Disease. Denies: Hx Cirrhosis, Hx Hepatitis Musculoskeltal Medical History: Reports Hx Arthritis, Reports Hx Muscle Weakness - Left Skin Medical History: Reports Hx Eczema, Denies Hx MRSA, Reports Hx Psoriasis Psychiatric Medical History: Denies: Hx Depression, Hx Schizoaffective Disorder Infectious Medical History: Denies: Hx Hepatitis, Hx MRSA Past Surgical History: Reports: Hx Cardiac Catheterization, Hx Cardiac Surgery - VSD having four previous surgeries as a child; heart valve defect, Hx Open Heart Surgery - VSD having four previous surgeries as a child; heart valve defect, Hx Vascular Surgery - Stents in right leg, Other - 4 separate operations for ventricular septal defect as a child.. Denies: Hx Pacemaker - Immunizations Immunizations up to date: Yes Hx Diphtheria, Pertussis, Tetanus Vaccination: Yes Hx Pneumococcal Vaccination: 03/24/13 Physical Exam - Vital signs Vitals: Temp Pulse Resp BP Pulse Ox 98.5 F 92 16 202/145 H 97 03/07/17 15:19 03/07/17 15:19 03/07/17 15:19 03/07/17 15:19 03/07/17 15:19 Course - Vital Signs Vital signs: Temp Pulse Resp BP Pulse Ox 98.5 F 92 17 209/148 H 95 03/07/17 15:19 03/07/17 15:19 03/07/17 17:01 03/07/17 17:01 03/07/17 17:01 - Laboratory Result Diagrams: 03/07/17 16:26 03/07/17 16:26 Laboratory results interpreted by me: 03/07/17 16:26 RDW 15.5 H
--- NOTE | 2017-03-07 17:40 | ER Document Report ---
ED GI/ - General Chief Complaint: Chest Pain Stated Complaint: CHEST PAIN Time Seen by Provider: 03/07/17 15:47 Mode of Arrival: Wheelchair Information source: Patient TRAVEL OUTSIDE OF THE [place] IN LAST 30 DAYS: No - HPI Patient complains to provider of: Abdominal pain Onset: Yesterday Timing/Duration: Gradual, Persistent Quality of pain: Sharp, Stabbing Severity at maximum: Moderate Severity in ED: Moderate Pain Level: 3 Location: Epigastric Associated symptoms: Nausea, Vomiting Exacerbated by: Denies Relieved by: Denies Similar symptoms previously: No Recently seen / treated by doctor: Yes Notes: 03/07/17 18:01 Patient is a 46-year-old male with a history of hypertension, diabetes, cholesterol and psoriasis, who presents to the emergency room today complaining of epigastric abdominal pain with nausea and vomiting that started yesterday evening around 10 PM, he reports the pain radiates up into his chest and it hurts when he takes a deep breath, his last bowel movement was last night and normal, there is no blood in his vomit, he was recently seen in this emergency room for a rash and placed on prednisone Benadryl and Pepcid - Related Data Allergies/Adverse Reactions: iodine [Iodine] Allergy (Severe, Verified 03/07/17 15:21) SWELLING Shellfish * [Shellfish] Allergy (Severe, Verified 03/07/17 15:21) Anaphylaxis morphine [Morphine] Allergy (Mild, Verified 03/07/17 15:21) diazepam [From Valium] Allergy (Verified 03/07/17 15:21) furosemide [From Lasix] Allergy (Verified 03/07/17 15:21) Past Medical History - General Information source: Patient - Social History Smoking Status: Never Smoker Chew tobacco use (# tins/day): No Frequency of alcohol use: None Drug Abuse: None Family History: Reviewed & Not Pertinent, Arthritis, CAD, CVA, DM, Hyperlipidemia, Hypertension, Malignancy, Other - Past Medical History Cardiac Medical History: Reports: Hx Coronary Artery Disease, Hx DVT - right leg., Hx Heart Attack, Hx Hypercholesterolemia, Hx Hypertension, Hx Heart Murmur Pulmonary Medical History: Denies: Hx Asthma, Hx COPD, Hx Tuberculosis Neurological Medical History: Reports: Hx Cerebrovascular Accident - Lt sided weakness, Hx Seizures Endocrine Medical History: Reports: Hx Diabetes Mellitus Type 1, Hx Diabetes Mellitus Type 2. Denies: Hx Hyperthyroidism, Hx Hypothyroidism Renal/ Medical History: Reports: Hx Kidney Stones. Denies: Hx Peritoneal Dialysis GI Medical History: Reports: Hx Gastroesophageal Reflux Disease. Denies: Hx Cirrhosis, Hx Hepatitis Musculoskeltal Medical History: Reports Hx Arthritis, Reports Hx Muscle Weakness - Left Skin Medical History: Reports Hx Eczema, Denies Hx MRSA, Reports Hx Psoriasis Psychiatric Medical History: Denies: Hx Depression, Hx Schizoaffective Disorder Infectious Medical History: Denies: Hx Hepatitis, Hx MRSA Past Surgical History: Reports: Hx Cardiac Catheterization, Hx Cardiac Surgery - VSD having four previous surgeries as a child; heart valve defect, Hx Open Heart Surgery - VSD having four previous surgeries as a child; heart valve defect, Hx Vascular Surgery - Stents in right leg, Other - 4 separate operations for ventricular septal defect as a child.. Denies: Hx Pacemaker - Immunizations Immunizations up to date: Yes Hx Diphtheria, Pertussis, Tetanus Vaccination: Yes Hx Pneumococcal Vaccination: 03/24/13 Review of Systems - Review of Systems Constitutional: No symptoms reported EENT: No symptoms reported Cardiovascular: Chest pain Respiratory: No symptoms reported Gastrointestinal: See HPI Genitourinary: No symptoms reported Male Genitourinary: No symptoms reported Musculoskeletal: No symptoms reported Skin: No symptoms reported Hematologic/Lymphatic: No symptoms reported Neurological/Psychological: No symptoms reported -: Yes All other systems reviewed and negative Physical Exam - Vital signs Vitals: Temp Pulse Resp BP Pulse Ox 98.5 F 92 16 202/145 H 97 03/07/17 15:19 03/07/17 15:19 03/07/17 15:19 03/07/17 15:19 03/07/17 15:19 Interpretation: Normal - General General appearance: Appears well, Alert - HEENT Head: Normocephalic, Atraumatic Eyes: Normal Pupils: PERRL - Respiratory Respiratory status: No respiratory distress Chest status: Tender - To palpate anterior chest wall Breath sounds: Normal Chest palpation: Normal - Cardiovascular Rhythm: Regular Heart sounds: Normal auscultation Murmur: No - Abdominal Inspection: Normal Distension: No distension Bowel sounds: Normal Tenderness: Tender - epigastric Organomegaly: No organomegaly - Back Back: Normal, Nontender - Extremities General upper extremity: Normal inspection, Nontender, Normal color, Normal ROM , Normal temperature General lower extremity: Normal inspection, Nontender, Normal color, Normal ROM , Normal temperature, Normal weight bearing. No: Eric's sign - Neurological Neuro grossly intact: Yes Cognition: Normal Orientation: AAOx4 Eric Coma Scale Eye Opening: Spontaneous [place] Coma Scale Verbal: Oriented [place] Coma Scale Motor: Obeys Commands Eric Coma Scale Total: 15 Speech: Normal Motor strength normal: LUE, RUE, LLE, RLE Sensory: Normal - Psychological Associated symptoms: Normal affect, Normal mood - Skin Skin Temperature: Warm Skin Moisture: Dry Skin Color: Normal Course - Re-evaluation Re-evalutation: 03/07/17 17:52 Patient sleeping comfortably, easily aroused, reports feeling much better after GI cocktail, symptoms likely related to gastritis, possibly from her recent prednisone usage for a rash that patient was experiencing, he continues to have hypertension but reports that his blood pressure is usually near or over 200 systolic, he denies any complaints related to this such as headache, patient will be discharged with a prescription for Pepcid, and also for methotrexate which he asked for when he was here recently for his psoriasis, he was advised to follow-up with a primary care provider or return if symptoms worsen, patient acknowledges understanding and agreement with this plan - Vital Signs Vital signs: Temp Pulse Resp BP Pulse Ox 98.5 F 92 17 209/148 H 95 03/07/17 15:19 03/07/17 15:19 03/07/17 17:01 03/07/17 17:01 03/07/17 17:01 - Laboratory Result Diagrams: 03/07/17 16:26 03/07/17 17:05 Laboratory results interpreted by me: 03/07/17 03/07/17 16:26 17:05 RDW 15.5 H Sodium 131.9 L Carbon Dioxide 19 L Glucose 226 H Direct Bilirubin 0.6 H ALT 18 L - Diagnostic Test Radiology reviewed: Image reviewed, Reports reviewed - EKG Interpretation by Me EKG shows normal: Sinus rhythm Rate: Normal Rhythm: NSR When compared to previous EKG there are: No significant change Discharge - Discharge Clinical Impression: Epigastric abdominal pain, Malignant essential hypertension Condition: Stable Disposition: HOME, SELF-CARE Instructions: Abdominal Pain ([facility]), Antacid Therapy ([facility]) Additional Instructions: Follow up with your primary care provider in one to 2 days. Return to the emergency room immediately if symptoms worsen or any additional concerns. Prescriptions: Famotidine [Pepcid 20 mg Tablet] 20 mg PO BID #60 tablet Methotrexate Sodium [Trexall] 40 mg PO ASDIR #16 tablet
[2017-03-07 17:47] LABS: CREATINE KINASE MB 1.21 ng/mL (<4.55); TROPONIN I 0.025 ng/mL
--- NOTE | 2017-03-07 20:12 | EKG REPORT ---
SEVERITY:- BORDERLINE ECG - SINUS RHYTHM PROBABLE LEFT ATRIAL ABNORMALITY LEFT AXIS DEVIATION BORDERLINE PROLONGED QT INTERVAL : Confirmed by: Jenifer Khan 07-Mar-2017 20:12:02
== END 2017-03-07 18:27 | disposition home or self-care (01) ==
LOC: ER 14:55
DX: R10.13 Epigastric pain (principal); R11.2 Nausea with vomiting, unspecified; I10 Essential (primary) hypertension; E11.9 Type 2 diabetes mellitus without complications; E78.00 Pure hypercholesterolemia, unspecified; I25.10 Atherosclerotic heart disease of native coronary artery without angina pectoris; I69.954 Hemiplegia and hemiparesis following unspecified cerebrovascular disease affecting left non-dominant side; Z88.6 Allergy status to analgesic agent; Z86.718 Personal history of other venous thrombosis and embolism; I25.2 Old myocardial infarction
CPT/HCPCS: 93005; 99285; 96360; 36415; 82553; 82550; 83690; 85025; 80053; 84484; 71020; 93010; A9270 ×3; J3490; J7030

== ENCOUNTER 2017-04-10 18:51 | Emergency (ER) | payer MEDICARE ==
--- NOTE | 2017-04-10 19:42 | ER Document Report ---
ED Medical Screen (RME) - General Chief Complaint: Breathing Difficulty Stated Complaint: DIFFICULTY BREATHING, BACK PAIN Time Seen by Provider: 04/10/17 19:37 Notes: Patient complains of left lateral chest and left flank pain. He states he has been short of breath with this pain. He states he has had some cough and congestion as well. He also states he has a history of DVTs and PEs. He has been on Coumadin before -most recently approximately 5 months ago. He is not currently on a blood thinner. He also states he has a history of VSD repair with 3 heart surgeries. He states he does have congestive heart failure. TRAVEL OUTSIDE OF THE [place] IN LAST 30 DAYS: Yes COUNTRY TRAVELED TO/FROM: [place] - Related Data Allergies/Adverse Reactions: iodine [Iodine] Allergy (Severe, Verified 04/10/17 18:57) SWELLING Shellfish * [Shellfish] Allergy (Severe, Verified 04/10/17 18:57) Anaphylaxis morphine [Morphine] Allergy (Mild, Verified 04/10/17 18:57) diazepam [From Valium] Allergy (Verified 04/10/17 18:57) furosemide [From Lasix] Allergy (Verified 04/10/17 18:57) Past Medical History - Social History Chew tobacco use (# tins/day): No Frequency of alcohol use: None Drug Abuse: None Family history: CAD - Past Medical History Cardiac Medical History: Reports: Hx Coronary Artery Disease, Hx DVT - right leg., Hx Heart Attack, Hx Hypercholesterolemia, Hx Hypertension, Hx Heart Murmur Pulmonary Medical History: Denies: Hx Asthma, Hx COPD, Hx Tuberculosis Neurological Medical History: Reports: Hx Cerebrovascular Accident - Lt sided weakness, Hx Seizures Endocrine Medical History: Reports: Hx Diabetes Mellitus Type 1, Hx Diabetes Mellitus Type 2. Denies: Hx Hyperthyroidism, Hx Hypothyroidism Renal/ Medical History: Reports: Hx Kidney Stones. Denies: Hx Peritoneal Dialysis GI Medical History: Reports: Hx Gastroesophageal Reflux Disease. Denies: Hx Cirrhosis, Hx Hepatitis Musculoskeltal Medical History: Reports Hx Arthritis, Reports Hx Muscle Weakness - Left Skin Medical History: Reports Hx Eczema, Denies Hx MRSA, Reports Hx Psoriasis Psychiatric Medical History: Denies: Hx Depression, Hx Schizoaffective Disorder Infectious Medical History: Denies: Hx Hepatitis, Hx MRSA Past Surgical History: Reports: Hx Cardiac Catheterization, Hx Cardiac Surgery - VSD having four previous surgeries as a child; heart valve defect, Hx Open Heart Surgery - VSD having four previous surgeries as a child; heart valve defect, Hx Vascular Surgery - Stents in right leg, Other - 4 separate operations for ventricular septal defect as a child.. Denies: Hx Pacemaker - Immunizations Immunizations up to date: Yes Hx Diphtheria, Pertussis, Tetanus Vaccination: Yes History of Influenza Vaccine for 03/2017 - 08/2017 Season: No Physical Exam - Vital signs Vitals: Temp Pulse Resp BP Pulse Ox 99.2 F 101 H 18 189/119 H 97 04/10/17 18:57 04/10/17 18:57 04/10/17 18:57 04/10/17 18:57 04/10/17 18:57 Course - Vital Signs Vital signs: Temp Pulse Resp BP Pulse Ox 99.2 F 101 H 18 189/119 H 97 04/10/17 18:57 04/10/17 18:57 04/10/17 18:57 04/10/17 18:57 04/10/17 18:57
[2017-04-10] MEDS ORDERED: ASPIRIN 81 MG TABLET, CHEWABLE PO ONE (20:11)
--- NOTE | 2017-04-10 20:11 | ER Document Report ---
ED General - General Chief Complaint: Breathing Difficulty Stated Complaint: DIFFICULTY BREATHING, BACK PAIN Time Seen by Provider: 04/10/17 19:37 Notes: Patient is a 46-year-old male that comes emergency department for chief complaint of left sided chest pain which goes around to his left side and towards his back. He states he does have shortness of breath and painful breathing, symptoms started 3 days ago. Patient reports cough and congestion as well, states he thinks he had a fever yesterday. Past medical history of DVT /PE, history of VSD repair with 3 procedures, states he was previously on Coumadin but he has not been on any anticoagulation for about 5 months. Other medical history includes hypertension, CVA with chronic paresthesias, denies history of [place] or congestive heart failure. TRAVEL OUTSIDE OF THE [place] IN LAST 30 DAYS: Yes COUNTRY TRAVELED TO/FROM: [place] - Related Data Allergies/Adverse Reactions: iodine [Iodine] Allergy (Severe, Verified 04/10/17 18:57) SWELLING Shellfish * [Shellfish] Allergy (Severe, Verified 04/10/17 18:57) Anaphylaxis morphine [Morphine] Allergy (Mild, Verified 04/10/17 18:57) diazepam [From Valium] Allergy (Verified 04/10/17 18:57) furosemide [From Lasix] Allergy (Verified 04/10/17 18:57) Past Medical History - General Information source: Patient - Social History Smoking Status: Never Smoker Chew tobacco use (# tins/day): No Frequency of alcohol use: None Drug Abuse: None Lives with: Family Family History: Reviewed & Not Pertinent, Arthritis, CAD, CVA, DM, Hyperlipidemia, Hypertension, Malignancy, Other Patient has suicidal ideation: No Patient has homicidal ideation: No - Past Medical History Cardiac Medical History: Reports: Hx Coronary Artery Disease, Hx DVT - right leg., Hx Heart Attack, Hx Hypercholesterolemia, Hx Hypertension, Hx Heart Murmur Pulmonary Medical History: Denies: Hx Asthma, Hx COPD, Hx Tuberculosis Neurological Medical History: Reports: Hx Cerebrovascular Accident - Lt sided weakness, Hx Seizures Endocrine Medical History: Reports: Hx Diabetes Mellitus Type 1, Hx Diabetes Mellitus Type 2. Denies: Hx Hyperthyroidism, Hx Hypothyroidism Renal/ Medical History: Reports: Hx Kidney Stones. Denies: Hx Peritoneal Dialysis GI Medical History: Reports: Hx Gastroesophageal Reflux Disease. Denies: Hx Cirrhosis, Hx Hepatitis Musculoskeltal Medical History: Reports Hx Arthritis, Reports Hx Muscle Weakness - Left Skin Medical History: Reports Hx Eczema, Denies Hx MRSA, Reports Hx Psoriasis Psychiatric Medical History: Denies: Hx Depression, Hx Schizoaffective Disorder Infectious Medical History: Denies: Hx Hepatitis, Hx MRSA Past Surgical History: Reports: Hx Cardiac Catheterization, Hx Cardiac Surgery - VSD having four previous surgeries as a child; heart valve defect, Hx Open Heart Surgery - VSD having four previous surgeries as a child; heart valve defect, Hx Vascular Surgery - Stents in right leg, Other - 4 separate operations for ventricular septal defect as a child.. Denies: Hx Pacemaker - Immunizations Immunizations up to date: Yes Hx Diphtheria, Pertussis, Tetanus Vaccination: Yes Hx Pneumococcal Vaccination: 03/24/13 Review of Systems - Review of Systems Constitutional: See HPI EENT: No symptoms reported Cardiovascular: See HPI Respiratory: See HPI Gastrointestinal: No symptoms reported Genitourinary: No symptoms reported Male Genitourinary: No symptoms reported Musculoskeletal: See HPI Skin: No symptoms reported Hematologic/Lymphatic: No symptoms reported Neurological/Psychological: No symptoms reported Physical Exam - Vital signs Vitals: Temp Pulse Resp BP Pulse Ox 99.2 F 101 H 18 189/119 H 97 04/10/17 18:57 04/10/17 18:57 04/10/17 18:57 04/10/17 18:57 04/10/17 18:57 Interpretation: Normal - General General appearance: Appears well, Alert In distress: None - HEENT Head: Normocephalic, Atraumatic Eyes: Normal Pupils: PERRL - Respiratory Respiratory status: No respiratory distress. No: Respiratory distress, Tachypnea Chest status: Nontender Breath sounds: Nonproductive cough - Occasional nonproductive but congested sounding cough Chest palpation: Normal - Cardiovascular Rhythm: Regular Heart sounds: Normal auscultation, S1 appreciated, S2 appreciated Murmur: Yes - Loud 3/6 murmur heard throughout - Abdominal Inspection: Normal Distension: No distension Bowel sounds: Normal Tenderness: Nontender. No: Tender, Guarding Organomegaly: No organomegaly - Back Back: Normal, Nontender. No: Tender, CVA tenderness - Patient is tender in the left mid back around to the left side, no bruising, swelling, erythema, tenderness is over and in between the ribs, unremarkable examination otherwise - Extremities General upper extremity: Normal inspection, Nontender, Normal color, Normal ROM , Normal temperature General lower extremity: Normal inspection, Nontender, Normal color, Normal ROM , Normal temperature, Normal weight bearing. No: Eric's sign - Neurological Neuro grossly intact: Yes Cognition: Normal Orientation: AAOx4 Eric Coma Scale Eye Opening: Spontaneous Eric Coma Scale Verbal: Oriented Eric Coma Scale Motor: Obeys Commands [place] Coma Scale Total: 15 Speech: Normal Motor strength normal: LUE, RUE, LLE, RLE Sensory: Normal - Psychological Associated symptoms: Normal affect, Normal mood - Skin Skin Temperature: Warm Skin Moisture: Dry Skin Color: Normal Course - Re-evaluation Re-evalutation: EKG shows sinus tachycardia at a rate of 100, no T-wave inversions in consecutive leads or ST segment changes, left axis deviation, left anterior fascicular block. CBC unremarkable, chemistries with no concerning abnormalities, troponin is baseline for patient, BNP is slightly elevated although patient does not have any lower extremity swelling, he does not have rales on exam, he does have a nonproductive cough on examination with pain over his left side and left back over the ribs. Patient is not in any distress. He is hypertensive, he states this is baseline, he is taking his indications, he states he is not here for that today. CTA with no aortic dissection, pulmonary embolism, does show patchy infiltrates. Because of cough, reported fever, and infiltrates on CAT scan patient will be treated for pneumonia with doxycycline, he will continue his spironolactone, he is allergic to Lasix. He has no difficulty lying flat, does not have dyspnea on exertion, not consistent with CHF exacerbation. Patient is asking to go home. Discussed with patient, he states he needs another primary care referral, states he will follow-up closely, states that he will return if he worsens in any way. Patient is not hypoxic, he is not toxic in appearance, ambulates without any difficulty, will be discharged with return precautions. - Vital Signs Vital signs: Temp Pulse Resp BP Pulse Ox 99.2 F 101 H 25 H 173/109 H 97 04/10/17 18:57 04/10/17 18:57 04/11/17 00:06 04/11/17 00:06 04/10/17 23:02 - Laboratory Result Diagrams: 04/10/17 21:05 04/10/17 22:05 Laboratory results interpreted by me: 04/10/17 04/10/17 04/10/17 21:05 21:05 22:05 Hgb 13.4 L RDW 15.2 H Glucose 201 H NT-Pro-B Natriuret Pep 1480 H Albumin 3.4 L Discharge - Discharge Clinical Impression: Cough, Side pain Chest pain Qualifiers: Chest pain type: unspecified Qualified Code(s): R07.9 - Chest pain, unspecified Condition: Stable Disposition: HOME, SELF-CARE Additional Instructions: Your cough, examination, and workup indicate pneumoina but no other abnormalities are specifically found. Take the antibiotics as prescribed, apply heat to your side and the fact in the areas that are painful, take the prescribed pain/cough medication if needed. Follow-up closely with primary care referral. Return to the emergency department if you worsen in anyway including difficulty breathing, spiking fever, or any other concerning symptoms. Prescriptions: Doxycycline Hyclate 100 mg PO BID #14 capsule Hydrocodone/Acetaminophen [[place] 5-325 mg Tablet] 1 - 2 tab PO ASDIR #10 tablet Referrals: URIEL MEJÍA MD [ACTIVE STAFF] - 04/12/17
[2017-04-10 21:29] LABS: ABSOLUTE BASOPHILS # (AUTO) 0.1 10^3/uL (0.0-0.2); ABSOLUTE EOSINOPHILS # (AUTO) 0.1 10^3/uL (0.0-0.6); ABSOLUTE LYMPHOCYTES (AUTO) 1.7 10^3/uL (0.5-4.7); ABSOLUTE MONOCYTES (AUTO) 0.3 10^3/uL (0.1-1.4); ABSOLUTE NEUT (AUTO) 4.5 10^3/uL (1.7-8.2); EOSINOPHILS % (AUTO) 1.5 % (0-6); HEMATOCRIT 38.8 % (37.9-51.0); HEMOGLOBIN 13.4 g/dL (13.5-17.0); HGB HCT DIFFERENCE 1.4; LYMPHOCYTES % (AUTO) 25.7 % (13-45); MEAN CORPUSCULAR HEMOGLOBIN 29.2 pg (27.0-33.4); MEAN CORPUSCULAR HGB CONC 34.5 g/dL (32.0-36.0); MEAN CORPUSCULAR VOLUME 85 fl (80-97); MONOCYTES % (AUTO) 4.5 % (3-13); RED BLOOD COUNT 4.59 10^6/uL (4.35-5.55); RED CELL DISTRIBUTION WIDTH 15.2 % (11.5-14.0); SEGMENTED NEUTROPHILS % (AUTO) 67.3 % (42-78); WHITE BLOOD COUNT 6.6 10^3/uL (4.0-10.5)
[2017-04-10 21:45] LABS: TROPONIN I 0.026 ng/mL
[2017-04-10 22:28] LABS: ALANINE AMINOTRANSFERASE 31 U/L (21-72); ALBUMIN 3.4 g/dL (3.5-5.0); ALKALINE PHOSPHATASE 89 U/L (38-126); ANION GAP 9 (5-19); ASPARTATE AMINO TRANSFERASE 18 U/L (17-59); BILIRUBIN,DIRECT 0.3 mg/dL (0.0-0.4); BILIRUBIN,TOTAL 0.6 mg/dL (0.2-1.3); BLOOD UREA NITROGEN 17 mg/dL (7-20); CALCIUM 8.8 mg/dL (8.4-10.2); CARBON DIOXIDE 27 mmol/L (22-30); CHLORIDE 102 mmol/L (98-107); CREATININE RESULT 1.16 mg/dL (0.52-1.25); GLUCOSE 201 mg/dL (75-110); POTASSIUM 4.1 mmol/L (3.6-5.0); SODIUM 137.6 mmol/L (137-145); TOTAL PROTEIN 6.5 g/dL (6.3-8.2)
[2017-04-10 23:07] LABS: URINE BARBITURATES SCREEN NEGATIVE; URINE METHADONE SCREEN NEGATIVE; URINE OPIATES LOW NEGATIVE; URINE PHENCYCLIDINE SCREEN NEGATIVE
--- NOTE | 2017-04-10 23:16 | RADIOLOGY REPORT (SQ) ---
EXAM DESCRIPTION: CTA CHEST COMPLETED DATE/TIME: 04/10/2017 10:53 pm REASON FOR STUDY: Left side chest pain back pain, cough, sob COMPARISON: 08/23/2015 TECHNIQUE: CT scan of the chest performed using helical scanning technique with dynamic intravenous contrast injection. Images reviewed with lung, soft tissue and bone windows. Reconstructed coronal and sagittal MPR images reviewed. Additional 3 dimensional post-processing performed to develop Maximal Intensity Projection images (MN P). All images stored on PACS. All CT scanners at this facility use dose modulation, iterative reconstruction, and/or weight based d osing when appropriate to reduce radiation dose to as low as reasonably achievable (ALARA). [facility]: Dose Right [facility]: CareDose [facility]: Dose Right [facility]: Teradose 4D [facility]: [place] CONTRAST TYPE AND DOSE: contrast/concentration: Isovue 370.00 mg/ml; Total Contrast Delivered: 100.0 ml; Total Saline Delivered: 56.0 ml Contrast bolus optimized for the pulmonary arteries. Not diagnostic for the aorta. RENAL FUNCTION: GFR > 60. RADIATION DOSE: Up-to-date CT equipment and radiation dose reduction techniques were employed. CTDIv ol: 31.4 - 33.1 mGy. DLP: 1102 mGy-cm. . LIMITATIONS: None. FINDINGS: LUNGS AND PLEURA: No pneumothorax. Mild interstitial and bronchial wall thickening. Smal l areas of patchy airspace disease are present in both lower lobes and small pleural effusions, right greater than left. AORTA AND GREAT VESSELS: No aneurysm. Contrast bolus not optimized for the aorta. HEART: No pericardial effusion. No significant coronary artery calcifications. PULMONARY ARTERIES: No emboli visualized in the main pulmonary arteries or the segmental branches. HILAR AND MEDIASTINAL STRUCTURES: No identified masses or abnormal nodes. HARDWARE: None in the chest. UPPER ABDOMEN: No significant findings. Limited exam. THYROID AND OTHER SOFT TISSUES: No masses. No adenopathy. BONES: No acute or significant finding. 3D MIPS: Confirm above findings. OTHER: No other significant finding. IMPRESSION: No emboli visualized in the main pulmonary arteries or the segmental branches. Small areas of patchy airspace disease are present in both lower lobes and small pleural effusions, r ight greater than left. COMMENT: Quality ID # [id number]: Final reports with documentation of one or more dose reduction techniques (e.g., Automated exposure control, adjustment of the mA and/or kV according to patient size, use of iterative reconstruction technique) TECHNICAL DOCUMENTATION: JOB ID: [id number] [employer] [facility] [employer]- All Rights Reserved
[2017-04-11] MEDS ORDERED: DOXYCYCLINE HYCLATE 100 MG TABLET PO ONE (00:10)
[2017-04-11] MEDS ORDERED: HYDROCODONE/ACETAMINOPHEN 5-325 MG (6 TAB/ER DISP) PO PRN (00:11)
[2017-04-11 00:37] VITALS: BP 173/109
--- NOTE | 2017-04-11 20:18 | EKG REPORT ---
SEVERITY:- ABNORMAL ECG - SINUS TACHYCARDIA LEFT ATRIAL ABNORMALITY LEFT ANTERIOR FASCICULAR BLOCK NONSPECIFIC T ABNORMALITIES, ANT-LAT LEADS : Confirmed by: Loyda Fernandes MD 11-Apr-2017 20:17:40
== END 2017-04-11 00:36 | disposition home or self-care (01) ==
LOC: ER 18:51
DX: R07.9 Chest pain, unspecified (principal); R05 Cough; R06.02 Shortness of breath; M54.9 Dorsalgia, unspecified; I10 Essential (primary) hypertension; Z86.73 Personal history of transient ischemic attack (TIA), and cerebral infarction without residual deficits
CPT/HCPCS: 93005; 99285; 36415; 85025; 80053; 84484; 80307; 83880; 71275; 93010; A9270 ×3

== ENCOUNTER 2017-04-13 04:01 | Emergency (ER) | payer MEDICARE ==
[2017-04-13] MEDS ORDERED: ASPIRIN 81 MG TABLET, CHEWABLE PO ONE (05:31)
[2017-04-13 05:51] LABS: ABSOLUTE BASOPHILS # (AUTO) 0.1 10^3/uL (0.0-0.2); ABSOLUTE EOSINOPHILS # (AUTO) 0.1 10^3/uL (0.0-0.6); ABSOLUTE LYMPHOCYTES (AUTO) 1.2 10^3/uL (0.5-4.7); ABSOLUTE MONOCYTES (AUTO) 0.3 10^3/uL (0.1-1.4); ABSOLUTE NEUT (AUTO) 4.2 10^3/uL (1.7-8.2); EOSINOPHILS % (AUTO) 1.7 % (0-6); HEMATOCRIT 38.6 % (37.9-51.0); HEMOGLOBIN 13.1 g/dL (13.5-17.0); HGB HCT DIFFERENCE 0.7; MEAN CORPUSCULAR HEMOGLOBIN 29.2 pg (27.0-33.4); MEAN CORPUSCULAR VOLUME 86 fl (80-97); RED BLOOD COUNT 4.49 10^6/uL (4.35-5.55); RED CELL DISTRIBUTION WIDTH 15.1 % (11.5-14.0); SEGMENTED NEUTROPHILS % (AUTO) 72.3 % (42-78); WHITE BLOOD COUNT 5.8 10^3/uL (4.0-10.5)
--- NOTE | 2017-04-13 06:07 | RADIOLOGY REPORT (SQ) ---
EXAM DESCRIPTION: CHEST SINGLE VIEW COMPLETED DATE/TIME: 04/13/2017 5:57 am REASON FOR STUDY: chest pain COMPARISON: Chest x-ray 03/07/2017, 11/08/2016. EXAM PARAMETERS: NUMBER OF VIEWS: One view. TECHNIQUE: Single frontal radiographic view of the chest acquired. RADIATION DOSE: NA LIMITATIONS: None. FINDINGS: LUNGS AND PLEURA: Mild right basilar atelectasis. No sizable pleural effusion or pneumoth orax. MEDIASTINUM AND HILAR STRUCTURES: No masses. Contour normal. HEART AND VASCULAR STRUCTURES: The heart remains enlarged. Normal vasculature. BONES: No acute findings. HARDWARE: Sternotomy wires are noted. IMPRESSION: Stable cardiomegaly. Mild right basilar atelectasis. TECHNICAL DOCUMENTATION: JOB ID: [id number]
[2017-04-13 06:17] LABS: ALANINE AMINOTRANSFERASE 24 U/L (21-72); ALBUMIN 3.6 g/dL (3.5-5.0); ALKALINE PHOSPHATASE 91 U/L (38-126); ANION GAP 13 (5-19); ASPARTATE AMINO TRANSFERASE 21 U/L (17-59); BILIRUBIN,DIRECT 0.5 mg/dL (0.0-0.4); BILIRUBIN,TOTAL 0.8 mg/dL (0.2-1.3); BLOOD UREA NITROGEN 14 mg/dL (7-20); CALCIUM 8.7 mg/dL (8.4-10.2); CARBON DIOXIDE 23 mmol/L (22-30); CHLORIDE 102 mmol/L (98-107); CREATINE KINASE 83 U/L (55-170); CREATININE RESULT 1.01 mg/dL (0.52-1.25); GLUCOSE 315 mg/dL (75-110); POTASSIUM 4.3 mmol/L (3.6-5.0); SODIUM 138.3 mmol/L (137-145); TOTAL PROTEIN 6.9 g/dL (6.3-8.2)
[2017-04-13] MEDS ORDERED: HYDROCODONE BIT/HOMATROPINE 5-1.5 MG TABLET PO ONE (06:27)
[2017-04-13] MEDS ORDERED: IPRATROPIUM/ALBUTEROL 0.5-2.5 MG/3 ML AMPUL NEB ONE ×2 (06:27)
--- NOTE | 2017-04-13 06:27 | ER Document Report ---
ED General - General Chief Complaint: Chest Pain Stated Complaint: CHEST PAIN Time Seen by Provider: 04/13/17 06:10 Mode of Arrival: Ambulatory Information source: Patient Notes: 46-year-old male who was recently diagnosed with pneumonia 2 days prior presents with complaints that he is not feeling any better. Patient notes he continues to cough has had small fever. Patient notes it is nonproductive at this time. Patient's been taking antibiotics 2 doses so far TRAVEL OUTSIDE OF THE [place] IN LAST 30 DAYS: No COUNTRY TRAVELED TO/FROM: [facility] Onset: Last week Onset/Duration: Persistent Quality of pain: Achy Severity: Mild Pain Level: 1 Associated symptoms: Body/muscle aches, Chest pain, Nonproductive cough, Shortness of breath Exacerbated by: Deep breathing Relieved by: Denies Similar symptoms previously: Yes Recently seen / treated by doctor: Yes - Patient was seen and diagnosed for pneumonia - Related Data Allergies/Adverse Reactions: iodine [Iodine] Allergy (Severe, Verified 04/10/17 18:57) SWELLING Shellfish * [Shellfish] Allergy (Severe, Verified 04/10/17 18:57) Anaphylaxis morphine [Morphine] Allergy (Mild, Verified 04/10/17 18:57) diazepam [From Valium] Allergy (Verified 04/10/17 18:57) furosemide [From Lasix] Allergy (Verified 04/10/17 18:57) Past Medical History - Social History Smoking Status: Current Every Day Smoker Cigarette use (# per day): No Chew tobacco use (# tins/day): No Smoking Education Provided: No Family History: Reviewed & Not Pertinent, Arthritis, CAD, CVA, DM, Hyperlipidemia, Hypertension, Malignancy, Other Patient has suicidal ideation: No Patient has homicidal ideation: No - Past Medical History Cardiac Medical History: Reports: Hx Coronary Artery Disease, Hx DVT - right leg., Hx Heart Attack, Hx Hypercholesterolemia, Hx Hypertension, Hx Heart Murmur Pulmonary Medical History: Denies: Hx Asthma, Hx COPD, Hx Tuberculosis Neurological Medical History: Reports: Hx Cerebrovascular Accident - Lt sided weakness, Hx Seizures Endocrine Medical History: Reports: Hx Diabetes Mellitus Type 1, Hx Diabetes Mellitus Type 2. Denies: Hx Hyperthyroidism, Hx Hypothyroidism Renal/ Medical History: Reports: Hx Kidney Stones. Denies: Hx Peritoneal Dialysis GI Medical History: Reports: Hx Gastroesophageal Reflux Disease. Denies: Hx Cirrhosis, Hx Hepatitis Musculoskeltal Medical History: Reports Hx Arthritis, Reports Hx Muscle Weakness - Left Skin Medical History: Reports Hx Eczema, Denies Hx MRSA, Reports Hx Psoriasis Psychiatric Medical History: Denies: Hx Depression, Hx Schizoaffective Disorder Infectious Medical History: Denies: Hx Hepatitis, Hx MRSA Past Surgical History: Reports: Hx Cardiac Catheterization, Hx Cardiac Surgery - VSD having four previous surgeries as a child; heart valve defect, Hx Open Heart Surgery - VSD having four previous surgeries as a child; heart valve defect, Hx Vascular Surgery - Stents in right leg, Other - 4 separate operations for ventricular septal defect as a child.. Denies: Hx Pacemaker - Immunizations Immunizations up to date: Yes Hx Diphtheria, Pertussis, Tetanus Vaccination: Yes Hx Pneumococcal Vaccination: 03/24/13 Review of Systems - Review of Systems Notes: REVIEW OF SYSTEMS: CONSTITUTIONAL : Denies fever, chills, or sweats. Denies recent illness. EENT: Denies eye, ear, throat, or mouth pain or symptoms. Denies nasal or sinus congestion or discharge. Denies throat, tongue, or mouth swelling or difficulty swallowing. CARDIOVASCULAR: Admits to chest wall pain when coughing RESPIRATORY: Admits to nonproductive cough shortness of breath GASTROINTESTINAL: Denies abdominal pain or distention. Denies nausea, vomiting , or diarrhea. Denies blood in vomitus, stools, or per rectum. Denies black, tarry stools. Denies constipation. GENITOURINARY: Denies difficulty urinating, painful urination, burning, frequency, blood in urine, or discharge. MUSCULOSKELETAL: Denies back or neck pain or stiffness. Denies joint pain or swelling. SKIN: Denies rash, lesions or sores. HEMATOLOGIC : Denies easy bruising or bleeding. LYMPHATIC: Denies swollen, enlarged glands. NEUROLOGICAL: Denies confusion or altered mental status. Denies passing out or loss of consciousness. Denies dizziness or lightheadedness. Denies headache. Denies weakness or paralysis or loss of use of either side. Denies problems with gait or speech. Denies sensory loss, numbness, or tingling. Denies seizures. PSYCHIATRIC: Denies anxiety or stress. Denies depression, suicidal ideation, or homicidal ideation. ALL OTHER SYSTEMS REVIEWED AND NEGATIVE. Dictation was performed using [employer] recognition software PHYSICAL EXAMINATION: GENERAL: Well-appearing, well-nourished and in no acute distress. HEAD: Atraumatic, normocephalic. EYES: Pupils equal round and reactive to light, extraocular movements intact, sclera anicteric, conjunctiva are normal. ENT: Nares patent, oropharynx clear without exudates. Moist mucous membranes. NECK: Normal range of motion, supple without lymphadenopathy LUNGS: Coarse crackles at the bases bilateral HEART: Regular rate and rhythm without murmurs ABDOMEN: Soft, nontender, nondistended abdomen. No guarding, no rebound. No masses appreciated. Musculoskeletal: Normal range of motion, no pitting or edema. No cyanosis. NEUROLOGICAL: Cranial nerves grossly intact. Normal speech, normal gait. Normal sensory, motor exams PSYCH: Normal mood, normal affect. SKIN: Warm, Dry, normal turgor, no rashes or lesions noted. Physical Exam - Vital signs Vitals: Pulse Ox 97 04/13/17 04:18 Course - Re-evaluation Re-evalutation: 04/13/17 07:10 Physical examination presentation is consistent with previously diagnosed pneumonia. Patient is only taking 2 doses of his antibiotics and states he does not feel better. I do not believe he give the medication enough time to actually work. His vital signs are stable he is satting well. He will be given further breathing treatments and Hycodan for his cough 04/13/17 08:39 Patient notes significant improvement after breathing treatments. Given the previous imaging was consistent with pneumonia and no pulmonary emboli was noted I do not believe there is any life-threatening issues. After performing a Medical Screening Examination, I estimate there is LOW risk for ACUTE CORONARY SYNDROME, RESPIRATORY FAILURE, SEPSIS OR MENINGITIS, thus I consider the discharge disposition reasonable. I have reevaluated this patient multiple times and no significant life threatening changes are noted. The patient and I have discussed the diagnosis and risks, and we agree with discharging home with close follow-up. We also discussed returning to the Emergency Department immediately if new or worsening symptoms occur. We have discussed the symptoms which are most concerning (e.g., changing or worsening pain, trouble swallowing or breathing, neck stiffness, fever) that necessitate immediate return. - Vital Signs Vital signs: Temp Pulse Resp BP Pulse Ox 99 F 92 18 150/107 H 97 04/13/17 04:20 04/13/17 04:20 04/13/17 08:00 04/13/17 08:31 04/13/17 08:31 - Laboratory Result Diagrams: 04/13/17 05:32 04/13/17 05:32 Laboratory results interpreted by me: 04/13/17 04/13/17 05:32 05:32 Hgb 13.1 L RDW 15.1 H Glucose 315 H Direct Bilirubin 0.5 H - Diagnostic Test Radiology reviewed: Image reviewed, Reports reviewed - EKG Interpretation by Me EKG shows normal: Sinus rhythm, [place], Intervals, QRS Complexes Discharge - Discharge Clinical Impression: Hypertension Qualifiers: Hypertension type: essential hypertension Qualified Code(s): I10 - Essential ( primary) hypertension Pneumonia Qualifiers: Pneumonia type: due to unspecified organism Laterality: bilateral Lung location : lower lobe of lung Qualified Code(s): J18.9 - Pneumonia, unspecified organism Condition: Stable Disposition: HOME, SELF-CARE Instructions: Pneumonia ([facility]) Additional Instructions: Follow up with your physician tomorrow for further care or return to the ED IMMEDIATELY if symptoms worsen or new concerns occur. If you cannot afford to follow up with your primary care physician a list of low cost clinics have been provided at the end of your discharge papers as well. Prescriptions: Hydrocodone Bit/Homatropine [Hycodan 5-1.5 mg Tablet] 1 tab PO Q4HP PRN #24 tablet PRN Reason: Albuterol Sulfate [Proair HFA] 1 - 2 puff IH Q4 PRN #1 inhaler PRN Reason:
[2017-04-13 06:28] LABS: CREATINE KINASE MB 0.76 ng/mL (<4.55); TROPONIN I 0.024 ng/mL
[2017-04-13] MEDS ORDERED: CLONIDINE HCL 0.2 MG TABLET PO ONE (07:38)
[2017-04-13 08:34] VITALS: BP 150/107
[2017-04-13] MEDS ORDERED: ALBUTEROL SULFATE HFA (90 MCG/PUFF) 8 GM MDI (1 MDI/ER DISP) IH PRN (08:42)
--- NOTE | 2017-04-13 10:37 | EKG REPORT ---
SEVERITY:- ABNORMAL ECG - SINUS RHYTHM LEFT ATRIAL ABNORMALITY BORDERLINE IVCD WITH LAD NONSPECIFIC T ABNORMALITIES, LATERAL LEADS BORDERLINE PROLONGED QT INTERVAL : Confirmed by: Loyda Fernandes MD 13-Apr-2017 10:35:56
== END 2017-04-13 08:54 | disposition home or self-care (01) ==
LOC: ER 04:01
DX: J18.9 Pneumonia, unspecified organism (principal); I10 Essential (primary) hypertension; R07.9 Chest pain, unspecified; R05 Cough; R50.9 Fever, unspecified; F17.200 Nicotine dependence, unspecified, uncomplicated
CPT/HCPCS: 93005; 94640 ×2; 99285; 36415; 82553; 82550; 85025; 80053; 84484; 71010; 93010; A9270 ×3; J3490; J7620

== ENCOUNTER 2017-05-13 01:08 | Inpatient (IN) | payer MEDICARE ==
[2017-05-13 02:40] LABS: ABSOLUTE BASOPHILS # (AUTO) 0.1 10^3/uL (0.0-0.2); ABSOLUTE EOSINOPHILS # (AUTO) 0.1 10^3/uL (0.0-0.6); ABSOLUTE LYMPHOCYTES (AUTO) 1.2 10^3/uL (0.5-4.7); ABSOLUTE MONOCYTES (AUTO) 0.3 10^3/uL (0.1-1.4); ABSOLUTE NEUT (AUTO) 3.8 10^3/uL (1.7-8.2); BASOPHILS % (AUTO) 1.2 % (0-2); EOSINOPHILS % (AUTO) 1.6 % (0-6); HEMOGLOBIN 12.9 g/dL (13.5-17.0); HGB HCT DIFFERENCE -0.3; LYMPHOCYTES % (AUTO) 21.7 % (13-45); MEAN CORPUSCULAR HEMOGLOBIN 28.5 pg (27.0-33.4); MEAN CORPUSCULAR HGB CONC 33.2 g/dL (32.0-36.0); MEAN CORPUSCULAR VOLUME 86 fl (80-97); MONOCYTES % (AUTO) 6.4 % (3-13); RED BLOOD COUNT 4.54 10^6/uL (4.35-5.55); RED CELL DISTRIBUTION WIDTH 15.5 % (11.5-14.0); SEGMENTED NEUTROPHILS % (AUTO) 69.1 % (42-78); WHITE BLOOD COUNT 5.5 10^3/uL (4.0-10.5)
[2017-05-13 02:52] LABS: ALANINE AMINOTRANSFERASE 41 U/L (21-72); ALBUMIN 3.4 g/dL (3.5-5.0); ALKALINE PHOSPHATASE 92 U/L (38-126); ANION GAP 11 (5-19); ASPARTATE AMINO TRANSFERASE 29 U/L (17-59); BILIRUBIN,DIRECT 0.5 mg/dL (0.0-0.4); BILIRUBIN,TOTAL 0.7 mg/dL (0.2-1.3); BLOOD UREA NITROGEN 21 mg/dL (7-20); CALCIUM 8.7 mg/dL (8.4-10.2); CARBON DIOXIDE 24 mmol/L (22-30); CHLORIDE 104 mmol/L (98-107); CREATININE RESULT 1.11 mg/dL (0.52-1.25); GLUCOSE 229 mg/dL (75-110); POTASSIUM 3.7 mmol/L (3.6-5.0); SODIUM 139.3 mmol/L (137-145); TOTAL PROTEIN 6.4 g/dL (6.3-8.2)
--- NOTE | 2017-05-13 03:16 | RADIOLOGY REPORT (SQ) ---
EXAM DESCRIPTION: CHEST PA/LAT CLINICAL HISTORY: cough SOB COMPARISON: 04/13/2017 FINDINGS: Frontal and lateral views of the chest. Cardiac megaly. Bilateral interstitial opacities. Prior median sternotomy. No pneumothorax or definite pleural effusion. No displaced rib fractures identified. Upper abdominal soft tissues are unremarkable. IMPRESSION: 1. Cardiomegaly with pulmonary edema.
[2017-05-13] MEDS ORDERED: HYDROCHLOROTHIAZIDE 25 MG TABLET PO ONE (03:35)
[2017-05-13] MEDS ORDERED: LISINOPRIL 10 MG TABLET PO ONE (03:35)
[2017-05-13] MEDS ORDERED: NITROGLYCERIN 2% OINTMENT 1 GM PACKET TP ONE (03:35)
--- NOTE | 2017-05-13 03:38 | ER Document Report ---
ED Respiratory Problem - General Chief Complaint: Shortness Of Breath Stated Complaint: SHORTNESS OF BREATH Time Seen by Provider: 05/13/17 03:23 Notes: Patient is a 46-year-old male who comes emergency department for chief complaint of worsening shortness of breath for 1 week, lower extremity swelling , and swelling slightly over his abdomen and scrotum. He states he cannot even walk across the room without getting out of breath. He states he is out of his blood pressure medications, lisinopril 20 mg and hydrochlorothiazide 25 mg. Past medical history of VSD repair, hypertension, CVA, DVT, psoriasis. He denies history of congestive heart failure. He denies drug abuse. He does not currently see a manager auto or primary care physician. TRAVEL OUTSIDE OF THE [place] IN LAST 30 DAYS: No COUNTRY TRAVELED TO/FROM: [place] - Related Data Allergies/Adverse Reactions: iodine [Iodine] Allergy (Severe, Verified 04/10/17 18:57) SWELLING Shellfish * [Shellfish] Allergy (Severe, Verified 04/10/17 18:57) Anaphylaxis morphine [Morphine] Allergy (Mild, Verified 04/10/17 18:57) diazepam [From Valium] Allergy (Verified 04/10/17 18:57) furosemide [From Lasix] Allergy (Verified 04/10/17 18:57) Past Medical History - General Information source: Patient - Social History Smoking Status: Never Smoker Chew tobacco use (# tins/day): No Frequency of alcohol use: None Drug Abuse: None Lives with: Other - Homeless intermediate Family History: Reviewed & Not Pertinent, Arthritis, CAD, CVA, DM, Hyperlipidemia, Hypertension, Malignancy, Other Patient has suicidal ideation: No Patient has homicidal ideation: No - Past Medical History Cardiac Medical History: Reports: Hx Coronary Artery Disease, Hx DVT - right leg., Hx Heart Attack, Hx Hypercholesterolemia, Hx Hypertension, Hx Heart Murmur Pulmonary Medical History: Denies: Hx Asthma, Hx COPD, Hx Tuberculosis Neurological Medical History: Reports: Hx Cerebrovascular Accident - Lt sided weakness, Hx Seizures Endocrine Medical History: Reports: Hx Diabetes Mellitus Type 2. Denies: Hx Hyperthyroidism, Hx Hypothyroidism Renal/ Medical History: Reports: Hx Kidney Stones. Denies: Hx Peritoneal Dialysis GI Medical History: Reports: Hx Gastroesophageal Reflux Disease. Denies: Hx Cirrhosis, Hx Hepatitis Musculoskeltal Medical History: Reports Hx Arthritis, Reports Hx Muscle Weakness - Left Skin Medical History: Reports Hx Eczema, Denies Hx MRSA, Reports Hx Psoriasis Psychiatric Medical History: Denies: Hx Depression, Hx Schizoaffective Disorder Infectious Medical History: Denies: Hx Hepatitis, Hx MRSA Past Surgical History: Reports: Hx Cardiac Catheterization, Hx Cardiac Surgery - VSD having four previous surgeries as a child; heart valve defect, Hx Open Heart Surgery - VSD having four previous surgeries as a child; heart valve defect, Hx Vascular Surgery - Stents in right leg, Other - 4 separate operations for ventricular septal defect as a child.. Denies: Hx Pacemaker - Immunizations Immunizations up to date: Yes Hx Diphtheria, Pertussis, Tetanus Vaccination: Yes Hx Pneumococcal Vaccination: 03/24/13 Review of Systems - Review of Systems Constitutional: No symptoms reported EENT: No symptoms reported Cardiovascular: See HPI Respiratory: See HPI Gastrointestinal: No symptoms reported Genitourinary: No symptoms reported Male Genitourinary: No symptoms reported Musculoskeletal: No symptoms reported Skin: No symptoms reported Hematologic/Lymphatic: No symptoms reported Neurological/Psychological: No symptoms reported Physical Exam - Vital signs Vitals: Temp Pulse Resp BP Pulse Ox 98.3 F 97 18 200/129 H 94 05/13/17 01:16 05/13/17 01:16 05/13/17 01:16 05/13/17 01:16 05/13/17 01:16 Interpretation: Normal - General General appearance: Appears well, Alert In distress: None - HEENT Head: Normocephalic, Atraumatic Eyes: Normal Pupils: PERRL - Respiratory Respiratory status: No respiratory distress, Other - Patient starts gasping for air if he completes full sentences but at rest does not appear to be in distress Chest status: Nontender Breath sounds: Decreased air movement, Rales - Scattered rales throughout lung [place] Chest palpation: Normal - Cardiovascular Rhythm: Regular Heart sounds: Normal auscultation Murmur: No - Abdominal Inspection: Normal Distension: Distended Bowel sounds: Normal Tenderness: Nontender Organomegaly: No organomegaly - Genitourinary Scrotum: Swelling - Minimal scrotal swelling without tenderness, erythema, or abnormal heat - Back Back: Normal, Nontender - Extremities General upper extremity: Normal inspection, Nontender, Normal color, Normal ROM , Normal temperature General lower extremity: Normal inspection, Nontender, Edema - 2+ pitting edema bilaterally, Normal color, Normal ROM, Normal temperature, Normal weight bearing - Neurological Neuro grossly intact: Yes Cognition: Normal Orientation: AAOx4 Eric Coma Scale Eye Opening: Spontaneous Eric Coma Scale Verbal: Oriented Eric Coma Scale Motor: Obeys Commands Eric Coma Scale Total: 15 Speech: Normal Motor strength normal: LUE, RUE, LLE, RLE Sensory: Normal - Psychological Associated symptoms: Normal affect, Normal mood - Skin Skin Temperature: Warm Skin Moisture: Dry Skin Color: Normal Course - Re-evaluation Re-evalutation: Patient appears to have acute congestive heart failure, has rales on exam, lower extremity edema bilaterally, mild swelling of the scrotum and abdomen, dyspnea on exertion, hypertension. Probably CHF secondary to hypertensive urgency. Giving his daily medications, nitroglycerin transdermal, obtaining IV access, placing on monitor, workup pending. Giving lisinopril, Nitropaste, Zarolyxn. He states he is allergic to Lasix and "breaks out and blows up with it". CBC unremarkable, chemistry generally unremarkable, BNP is significantly elevated at greater than 4000, troponin indeterminate, patient denying chest pain. Chest x-ray showing pulmonary vascular congestion. Patient has lower extremity swelling and some fluid over the abdomen and scrotum. He has shortness of breath even with full sentences and has very labored breathing with only taking a couple of steps. Blood pressure has significantly improved, patient resting quietly. Discussed with Dr. Escoto, he will speak to the hospitalist coming on. Discussed with Dr. Bingham, patient will be admitted to the IMCU. Patient states understanding and agreement. - Vital Signs Vital signs: Temp Pulse Resp BP Pulse Ox 98.3 F 97 18 138/99 H 94 05/13/17 01:16 05/13/17 01:16 05/13/17 07:01 05/13/17 07:00 05/13/17 07:01 - Laboratory Result Diagrams: 05/13/17 02:30 05/13/17 02:30 Laboratory results interpreted by me: 05/13/17 05/13/17 05/13/17 02:30 02:30 02:30 Hgb 12.9 L RDW 15.5 H BUN 21 H Glucose 229 H Direct Bilirubin 0.5 H Creatine Kinase NT-Pro-B Natriuret Pep 4020 H Albumin 3.4 L 05/13/17 02:30 Hgb RDW BUN Glucose Direct Bilirubin Creatine Kinase 174 H NT-Pro-B Natriuret Pep Albumin Discharge - Discharge Clinical Impression: Pulmonary vascular congestion, Shortness of breath, Uncontrolled hypertension Condition: Stable Disposition: ADMITTED INPATIENT Admitting Provider: Hospitalist Unit Admitted: AMAURY
[2017-05-13] MEDS ORDERED: METOLAZONE 5 MG TABLET PO ONE (03:48)
[2017-05-13 03:56] LABS: CREATINE KINASE MB 1.6 ng/mL (<4.55); TROPONIN I 0.027 ng/mL
[2017-05-13] MEDS ORDERED: METOLAZONE 5 MG TABLET ONE (04:40)
[2017-05-13 05:41] LABS: URINE BARBITURATES SCREEN NEGATIVE; URINE METHADONE SCREEN NEGATIVE; URINE OPIATES LOW NEGATIVE; URINE PHENCYCLIDINE SCREEN NEGATIVE
[2017-05-13] MEDS ORDERED: ACETAMINOPHEN 325 MG TABLET PO PRN (07:22)
[2017-05-13] MEDS ORDERED: TRAMADOL HCL 50 MG TABLET PO PRN (08:21)
[2017-05-13] MEDS ORDERED: DEXTROSE 50%-WATER 25 GM/50 ML DISP.SYRIN IV PRN ×2 (08:37)
[2017-05-13] MEDS ORDERED: DEXTROSE 40% GEL 15 GM TUBE PO PRN ×2 (08:37)
[2017-05-13] MEDS ORDERED: GLUCAGON,HUMAN RECOMB 1 MG INJ IM PRN (08:37)
[2017-05-13] MEDS ORDERED: ASPIRIN 81 MG TABLET, CHEWABLE PO ONE (08:45)
[2017-05-13] MEDS ORDERED: BUMETANIDE INJ/PF 1 MG/4 ML SDV IV ONE (08:45)
[2017-05-13] MEDS ORDERED: METOPROLOL SUCCINATE 50 MG TAB.SR.24H PO ONE (09:00)
[2017-05-13] MEDS ORDERED: POTASSIUM CHLORIDE 10 MEQ TABLET.SA PO ONE (09:00)
--- NOTE | 2017-05-13 09:11 | EKG REPORT ---
SEVERITY:- ABNORMAL ECG - SINUS RHYTHM LEFT ATRIAL ABNORMALITY LEFT AXIS DEVIATION NONSPECIFIC T ABNORMALITIES, ANT-LAT LEADS BORDERLINE PROLONGED QT INTERVAL : Confirmed by: Jenifer Khan 13-May-2017 09:10:32
--- NOTE | 2017-05-13 09:38 | HISTORY AND PHYSICAL E ---
History and Physical NAME: SHARON JERONIMO : 1970 AGE: 46Y ADMITTED: 05/13/2017 ROOM: ED01 CODE STATUS: FULL CODE. PRIMARY CARE PROVIDER: Not established. BUYERS' AGENT: Not established locally. CHIEF COMPLAINT: Shortness of breath. HISTORY OF PRESENT ILLNESS: The patient is a 46-year-old -Malagasy male with a past medical history of ventricular septal defect repair as well as poorly controlled hypertension that is well known to the hospitalist service. The patient presented to the emergency department with a chief complaint of shortness of breath x1 week as well as lower extremity swelling and edema of his abdomen and scrotum. The patient stated that he could not even walk across the room without getting short of breath. The patient stated that he has ran out of his medications including lisinopril and hydrochlorothiazide within the past month. The patient denies any previous history of CHF which is surprising given the patient's complex cardiac history and previous findings on echocardiogram. The patient denies any illicit drug use. The patient is not currently followed by a boatswain's mate, stating that he has recently relocated to the area as the reason why he does not see a primary care provider either. Upon review of the patient's medical history, it appears that the patient has had 6 visits to the emergency department this calendar year due to hypertension related issues and 3 inpatient stays related to the same issues. The patient's last echocardiogram was in October of 2016. At that time his EF was estimated to be 50-55% with 3/4 diastolic dysfunction and evidence of mild pulmonary hypertension. The patient has been discharged in the past on chlorthalidone as well as Aldactone and labetalol for blood pressure control and diuresis, however, the patient has not been on those medications this month. The patient also has listed as an allergy LASIX, stating that he breaks out and blows up with it. Uncertain how the patient has been diuresed in the past; however, upon review of previous admissions, it appears that the patient has received Lasix on numerous occasions and has also tolerated Bumex without issue. Given the findings of pulmonary edema, the patient has been referred to the hospitalist for admission and management. PAST MEDICAL HISTORY: 1. Coronary artery disease. 2. Previous DVT of the right leg. 3. Pervious myocardial infarction. 4. Hyperlipidemia. 5. Hypertension. 6. Seizure disorder. 7. Diabetes mellitus type 2. 8. Gastroesophageal reflux disease. 9. Osteoarthritis. 10. Eczema. 11. Psoriasis. PAST SURGICAL HISTORY: 1. Cardiac catheterization. 2. Vascular surgery due to stents in the right leg. 3. Four previous operations for ventricular septal defect as a child. ALLERGIES: 1. IODINE. 2. SHELLFISH. 3. MORPHINE. 4. VALIUM. 5. FUROSEMIDE, however, this part is questionable. SOCIAL HISTORY: The patient denies ever having any tobacco use. He does admit to occasional alcohol use but has not drank in almost a year. Denies any recreational drug use or prescription drug abuse. The patient currently resides at home and is disabled. The patient refused to list any surrogate decision maker at this time. FAMILY MEDICAL HISTORY: Positive for osteoarthritis, coronary artery disease, cerebrovascular disease, diabetes, hyperlipidemia, hypertension, malignancy in multiple family members. REVIEW OF SYSTEMS: CONSTITUTIONAL: The patient denies any fevers, chills, dizziness, weakness. No loss of appetite. SKIN: The patient denies any diaphoresis, itching, or bruising. Does admit to his chronic plaquing due to his psoriasis. HEENT: The patient denies any vision change, nasal drainage, sore throat. He does admit to a current headache. CARDIOVASCULAR: Denies any chest pain or heart palpitations but admits to peripheral and abdominal edema and shortness of breath. RESPIRATORY: Denies any cough, sputum production, or hemoptysis. GASTROINTESTINAL: Denies any nausea, vomiting, abdominal pain, bloating, hematemesis, constipation, melena, or hematochezia. GENITOURINARY: Denies any hematuria, polyuria, or dysuria. MUSCULOSKELETAL: Denies any acute or chronic joint pain. NEUROLOGIC: Denies any seizures, tremors, or loss of consciousness. HEMATOLOGIC: Denies any phi bleeding or easy bruising. ENDOCRINE: Denies any recent weight changes. PSYCHIATRIC: Denies suicidal/homicidal ideation. The rest of the review of the other organ systems is negative. PHYSICAL EXAMINATION: GENERAL: On examination, the patient is a well-developed, well-nourished, 46-year-old -Malagasy male who is awake, alert. He is oriented to person, place, time, and situation. He is verbal, conversational, ambulatory. He does appear to be in some mild distress. VITAL SIGNS: Temperature 98.3, pulse 88, respirations 18, blood pressure 130/99, oxygen saturation is 94% on 2 L nasal cannula. SKIN: Warm and dry. No rash. He is not diaphoretic. HEENT: Pupils equal, round, reactive to light and accommodation. Conjunctivae are pink. Sclerae is muddy. There are no mouth lesions. Tongue is midline. NECK: Supple. The patient does have JVP to the level of the right ear. No palpable lymphadenopathy or thyromegaly. CARDIOVASCULAR: Heart is regular. The patient has 4/6 systolic murmur but no rub. CHEST: Diminished and symmetrical with bilateral basal crackles. ABDOMEN: Tight but no area of focal tenderness. Bowel sounds are present. BACK: No CVA tenderness with evidence of sacral edema. EXTREMITIES: No clubbing or cyanosis. The patient does have +2 bilateral lower extremity edema with no peripheral signs of embolization. Pedal pulses +1 noted bilaterally. PSYCHIATRIC: Appropriate affect. Pleasant mood. DIAGNOSTICS: Lab values are as follow: Hematology obtained on 05/13/2017: WBCs are 5.5, hemoglobin is 12.9, hematocrit is 39.9, platelet count is 285,000. Chemistry obtained on 05/13/2017: Sodium is 139, potassium 2.7, chloride is 104, carbon dioxide 24, BUN 21, creatinine is 1.11, glucose is 229, calcium is 8.7, bilirubin is 0.7, AST 29, ALT 41, alk phos 92, CK 174, CK-MB is 1.60, troponin is 0.027, BNP is 4020, total protein 6.4, albumin 3.4. Toxicology obtained on 05/13/2017: Findings are parker negative. Chest x-ray obtained on 05/13/2017 reveals cardiomegaly with evidence of pulmonary edema. EKG obtained on 05/13/2017 reveals sinus rhythm. IMPRESSION AND PLAN: 1. Hypertensive emergency. The patient's blood pressures have improved at this time with medications given in the ER. Will resume the patient's lisinopril. Given that the patient is not beta nery naive in spite of his CHF exacerbation, will resume a beta nery as well and monitor blood pressures accordingly. 2. Ijiii-ad-hssemmw systolic and diastolic congestive heart failure. Will diurese the patient with Bumex and monitor closely for evidence of reaction. Will go ahead and supplement potassium. Most likely the cause of this is #1. Will add TSH for the sake of completion. 3. Diabetes mellitus type 2. Will add sliding scale coverage and resume the patient's home medications once reconcilable. 4. Psoriasis. The patient has no overt evidence of infection. Will resume his home suppressive agents. 5. Acute respiratory failure as evidence by the patient's persistent tachypnea and need for O2 supplementation. This will improve hopefully with diuresis. 6. Coronary artery disease. Will start the patient on an aspirin therapy and resume statin. 7. Nutrition. Will start the patient on a cardiac diet. 8. DVT prophylaxis. Will add subcutaneous Lovenox. DISPOSITION: The patient is a FULL CODE. Pending patient's symptomatology and diagnostic findings, will evaluate in the a.m. Will admit the patient to inpatient IMCU as the patient's expected length of stay should not surpass 2 midnights. Time spent on this admission including assessment, plan, physical examination, patient education, review of previous and current medical records is 60 minutes. DICTATING PHYSICIAN: HORACE STARR NP [id number] PHY#: [id number] ID: [id number] JOB#: [id number] ACCT: [id number] cc:WALLACE VALLE M.D., MICHAEL NP >
[2017-05-13] MEDS ORDERED: INFLUENZA ADLT QUAD (36MOS+) 2017-18 VAC 0.5 ML SYR IM PRN (10:25)
[2017-05-13] MEDS: ENOXAPARIN SODIUM INJ 40 MG/0.4 ML DISP.SYRIN SUBCUT SCH (10:41)
[2017-05-13] MEDS ORDERED: AMLODIPINE BESYLATE 5 MG TABLET PO ONE (17:25)
[2017-05-13] MEDS: INSULIN LISPRO 100 UNIT/ML 3 ML VIAL SUBCUT PRN (18:17)
[2017-05-13] MEDS: BUMETANIDE INJ/PF 1 MG/4 ML SDV IV SCH (18:18)
[2017-05-13] MEDS ORDERED: METOPROLOL TARTRATE PF/INJ 5 MG/5 ML SDV IV ONE ×2 (21:23→21:38)
[2017-05-13] MEDS: LISINOPRIL 10 MG TABLET PO SCH (21:51)
[2017-05-13] MEDS: POTASSIUM CHLORIDE 10 MEQ TABLET.SA PO SCH (21:51)
[2017-05-13] MEDS: AMLODIPINE BESYLATE 5 MG TABLET PO SCH (21:53)
[2017-05-13] MEDS ORDERED: ATORVASTATIN CALCIUM 40 MG TABLET PO SCH (22:00)
[2017-05-14] MEDS ORDERED: MAGNESIUM SULFATE/D5W 1 GM/100 ML RTUPB IV ONE (04:30)
[2017-05-14] MEDS: METOPROLOL SUCCINATE 50 MG TAB.SR.24H PO SCH ×2 (05:22→10:04)
[2017-05-14 07:20] LABS: ANION GAP 9 (5-19); BLOOD UREA NITROGEN 16 mg/dL (7-20); CALCIUM 9.2 mg/dL (8.4-10.2); CARBON DIOXIDE 31 mmol/L (22-30); CHLORIDE 96 mmol/L (98-107); CREATININE RESULT 1.19 mg/dL (0.52-1.25); GLUCOSE 202 mg/dL (75-110); MAGNESIUM 1.8 mg/dL (1.6-2.3); POTASSIUM 3.6 mmol/L (3.6-5.0)
[2017-05-14] MEDS: INSULIN LISPRO 100 UNIT/ML 3 ML VIAL SUBCUT PRN ×2 (07:47→12:15)
[2017-05-14] MEDS ORDERED: ASPIRIN 81 MG TABLET, CHEWABLE PO SCH (10:00)
[2017-05-14] MEDS: BUMETANIDE INJ/PF 1 MG/4 ML SDV IV SCH (10:03)
[2017-05-14] MEDS: ENOXAPARIN SODIUM INJ 40 MG/0.4 ML DISP.SYRIN SUBCUT SCH (10:03)
[2017-05-14] MEDS: AMLODIPINE BESYLATE 5 MG TABLET PO SCH (10:03)
[2017-05-14] MEDS: LISINOPRIL 10 MG TABLET PO SCH (10:04)
[2017-05-14] MEDS: POTASSIUM CHLORIDE 10 MEQ TABLET.SA PO SCH (10:04)
[2017-05-14] MEDS ORDERED: ACETAMINOPHEN 325 MG TABLET PO PRN (12:30)
--- NOTE | 2017-05-14 12:55 | PDOC DISCHARGE SUMMARY ---
General - Admit/Disc Date/PCP Admission Date/Primary Care Provider: 05/13/17 07:53 Discharge Date: 05/14/17 - Discharge Diagnosis (1) Acute on chronic combined systolic (congestive) and diastolic (congestive) heart failure Is this a current diagnosis for this admission?: Yes Summary: Echocardiogram from October 2016 demonstrated LVEF 50-55% with associated grade 3/4 moderate diastolic dysfunction. He presented with significant bilateral lower extremity, lower abdominal and scrotal edema, orthopnea with dyspnea on exertion. He reports that he has not been taking his prescribed medications as he has recently moved to the area and has been unable to establish with a primary care provider locally and has lost his prescription coverage insurance. However he has had multiple admissions to this hospital with the same complaint. A long discussion was had with regard to the importance of establishing with a primary care provider and following up with cardiology. Prior to discharge home he was connected with our planner internship and patient navigator to assist with identifying community resources and applying for Medicaid. He was diuresed overnight with IV Bumex and noted to have a 6 kg weight loss and resolution of orthopnea, dyspnea, abdominal and scrotal edema. He continues to have trace bilateral pedal edema which is significantly improved as compared to yesterday. On day of discharge he is in stable condition and will be sent home with prescriptions for Norvasc, lisinopril, metoprolol, aspirin, Lipitor, Bumex, and potassium. (2) Hypertensive emergency Is this a current diagnosis for this admission?: Yes Summary: Pt's blood pressures improved with resumption of lisinopril, metoprolol, norvasc and addition of bumex. He does remain hypertensive and will require close follow up with medication management. (3) Diabetes mellitus type 2 in obese Is this a current diagnosis for this admission?: Yes Summary: Resumed metformin; pt was additionally covered with sliding scale insulin. (4) Acute respiratory failure Is this a current diagnosis for this admission?: Yes Summary: Resolved; presumed to be 2/2 acute CHF exacerbation. Patient's tachypnea and hypoxia have resolved. He is now maintaining oxygen saturations while on room air is conversational without difficulty. (5) Coronary artery disease Is this a current diagnosis for this admission?: Yes Summary: Patient was restarted on aspirin and Lipitor therapy. - Additional Information Discharge Diet: Cardiac, Diabetic Discharge Activity: Activity As Tolerated, Balance Activity w/Rest, Weigh Daily Home Medications: Amlodipine Besylate [Norvasc 5 mg Tablet] 5 mg PO Q12 #30 tablet 05/14/17 Aspirin [Aspirin 81 mg Chewable Tablet] 81 mg PO DAILY #90 tab.chew 05/14/17 Atorvastatin Calcium [Lipitor 40 mg Tablet] 40 mg PO QHS #30 tablet 05/14/17 Bumetanide [Bumex 2 mg Tablet] 1 tab PO DAILY #30 tab 05/14/17 Lisinopril [Prinivil 10 mg Tablet] 20 mg PO Q12 #30 tablet 05/14/17 Metformin HCl [Glucophage] 500 mg PO BID #60 tablet 05/14/17 Metoprolol Succinate [Toprol Xl 50 mg Tab.sr] 50 mg PO Q12 #60 tab.sr.24h Potassium Chloride [Klor-Con 10 Meq Tablet.sa] 20 meq PO Q12 #60 tablet.sa 05/14 History of Present Illness History of Present Illness: Per H&P by Bibiana Bingham NP: SHARON JERONIMO is a 46 year old [place]ferican[place] male with a past medical history of ventricular septal defect repair as well as poorly controlled hypertension that is well known to the hospitalist service. The patient presented to the emergency department with a chief complaint of shortness of breath 1 week as well as lower extremity swelling and edema of his abdomen and scrotum. The patient stated that he could not even walk across the room without getting short of breath. The patient stated that he ran out of his medications including lisinopril and hydrochlorothiazide within the past month. The patient denies any previous history of CHF which is surprising given the patient's complex cardiac history and previous findings on echocardiogram. The patient denies any illicit drug use. The patient is not currently followed by a veneer jointer, stating that he is recently relocated to the area as the reason why he does not see a primary care provider either. Upon review of the patient's medical history, it appears that patient has had 6 visits to the emergency department this calendar year due to hypertension related issues and 3 inpatient stays related to the same issues. The patient's last echocardiogram was in October 2016. At that time his EF was estimated to be 50 -55% with 3/4 diastolic dysfunction and evidence of mild pulmonary hypertension. The patient has been discharged in the past on chlorthalidone as well as Aldactone and labetalol for blood pressure control and diuresis, however , the patient has not been on those medications this month. The patient has also listed as an allergy Lasix, stating that he breaks out and blows up with it. Uncertain how the patient has been diuresed in the past; however, upon review of previous admission it appears that the patient has received Lasix on numerous occasions and has also tolerated Bumex without issue. Given the findings of pulmonary edema, the patient has been referred to the hospitalist for admission and management. Hospital Course Hospital Course: The patient was admitted to [facility] for acute CHF exacerbation. He was restarted on lisinopril, metoprolol, and Norvasc. He was provided IV Bumex; he diuresed 6 kg overnight with rapid resolution of his respiratory complaints and edema. He was also placed on ASA and Lipitor given his coronary artery disease history. He did require magnesium and potassium repletion and will be discharged with p.o. potassium supplementation given that he will continue to require diuretic therapy. A long discussion was had with the patient with regard to the importance of establishing with a primary care provider and following up with Dr. Benitez's office. Additionally, he was seen by our planner internship and patient navigator to discuss medicaid eligibility and community resources. Physical Exam Vital Signs: Temp Pulse Resp BP Pulse Ox 98.2 F 82 19 157/111 H 100 05/14/17 08:13 05/14/17 08:13 05/14/17 08:13 05/14/17 08:13 05/14/17 08:13 Intake & Output 05/13/17 05/14/17 05/15/17 06:59 06:59 06:59 Intake Total 1456 Output Total 3400 Balance -1944 Weight 115.4 kg General appearance: PRESENT: no acute distress, obese, well-developed, well- nourished Head exam: PRESENT: atraumatic, normocephalic Eye exam: PRESENT: conjunctiva pink, EOMI, PERRLA. ABSENT: scleral icterus Ear exam: PRESENT: normal external ear exam Mouth exam: PRESENT: moist, tongue midline Neck exam: ABSENT: carotid bruit, JVD, lymphadenopathy, thyromegaly Respiratory exam: PRESENT: clear to auscultation bernardo, symmetrical, unlabored. ABSENT: rales, rhonchi, tachypnea, wheezes Cardiovascular exam: PRESENT: RRR. ABSENT: diastolic murmur, rubs, systolic murmur, tachycardia Pulses: PRESENT: normal dorsalis pedis pul Vascular exam: PRESENT: normal capillary refill GI/Abdominal exam: PRESENT: normal bowel sounds, soft. ABSENT: distended, guarding, mass, organolmegaly, rebound, tenderness Rectal exam: PRESENT: deferred Extremities exam: PRESENT: full ROM, pedal edema - +1, non-pitting, pedal edema bilaterally. ABSENT: calf tenderness, clubbing Musculoskeletal exam: PRESENT: ambulatory Neurological exam: PRESENT: alert, awake, oriented to person, oriented to place , oriented to time, oriented to situation, CN II-XII grossly intact. ABSENT: motor sensory deficit Psychiatric exam: PRESENT: appropriate affect, normal mood. ABSENT: homicidal ideation, suicidal ideation Skin exam: PRESENT: dry, intact, warm. ABSENT: cyanosis, rash Results Laboratory Results: 05/14/17 06:03 05/13/17 05/14/17 22:45 06:03 Sodium 136.0 L Potassium 3.6 Chloride 96 L Carbon Dioxide 31 H Anion Gap 9 BUN 16 Creatinine 1.19 Est GFR ( Amer) > 60 Est GFR (Non-Af Amer) > 60 Glucose 202 H Calcium 9.2 Magnesium 1.4 L 1.8 Impressions: Chest X-Ray 05/13/17 00:00 IMPRESSION: 1. Cardiomegaly with pulmonary edema. Qualifiers PATEINT BEING DISCHARGED WITH ANY OF THE FOLLOWING DIAGNOSIS?: Heart Failure
[2017-05-14 13:01] VITALS: BP 152/74
[2017-05-14] MEDS ORDERED: PREDNISOLONE ACETATE 1% OPH SUSP 5 ML OU SCH (18:00)
== END 2017-05-14 16:05 | disposition home or self-care (01) | DRG 292 ==
LOC: ER 01:08 → EH 07:53 → 3S 09:31
PROVIDERS: ADMIT Emergency Medicine; ATTEND Emergency Medicine
DX: I50.43 Acute on chronic combined systolic (congestive) and diastolic (congestive) heart failure (principal); I16.1 Hypertensive emergency; I11.0 Hypertensive heart disease with heart failure; I25.10 Atherosclerotic heart disease of native coronary artery without angina pectoris; L40.9 Psoriasis, unspecified; K21.9 Gastro-esophageal reflux disease without esophagitis; E78.5 Hyperlipidemia, unspecified; G40.909 Epilepsy, unspecified, not intractable, without status epilepticus; M19.90 Unspecified osteoarthritis, unspecified site; L30.9 Dermatitis, unspecified; Z86.73 Personal history of transient ischemic attack (TIA), and cerebral infarction without residual deficits; Z86.718 Personal history of other venous thrombosis and embolism; Z88.8 Allergy status to other drugs, medicaments and biological substances; I25.2 Old myocardial infarction; Z91.013 Allergy to seafood; Z88.6 Allergy status to analgesic agent
CPT/HCPCS: 36415; 71020; 80048; 80053; 80307; 82550; 82553; 82962; 83735; 83880; 84443; 84484; 85025; 90686; 93005; 93010; 99285; J1650; J1815; J3490

== ENCOUNTER 2017-06-18 11:38 | Inpatient (IN) | payer MEDICARE ==
[2017-06-18] MEDS ORDERED: OXYCODONE-ACETAMINOPHEN 5-325 MG TABLET PO ONE (12:08)
[2017-06-18] MEDS ORDERED: IBUPROFEN 800 MG TABLET PO ONE (12:09)
[2017-06-18] MEDS ORDERED: FAMOTIDINE INJ/PF 20 MG/2 ML SDV IV ONE (12:18)
[2017-06-18] MEDS ORDERED: METHYLPREDNISOLONE INJ 125 MG/2 ML SDV IV ONE (12:18)
[2017-06-18] MEDS ORDERED: DIPHENHYDRAMINE HCL 50 MG/ML VIAL IV ONE (12:18)
--- NOTE | 2017-06-18 12:23 | ER Document Report ---
ED Medical Screen (RME) - General Chief Complaint: Syncope Stated Complaint: FALL,LEFT SIDE PAIN Time Seen by Provider: 06/18/17 12:03 Mode of Arrival: Ambulatory Information source: Patient Notes: 46 yr old male hx of PE presents with syncopal episode last night as well as cough, fevers today I have greeted and performed a rapid initial assessment of this patient. A comprehensive ED assessment and evaluation of the patient, analysis of test results and completion of the medical decision making process will be conducted by additional ED providers. PHYSICAL EXAMINATION: GENERAL: Well-appearing, well-nourished and in no acute distress. febrile HEAD: Atraumatic, normocephalic. EYES: Pupils equal round extraocular movements intact, conjunctiva are normal. ENT: Nares patent NECK: Normal range of motion LUNGS: No respiratory distress Musculoskeletal: Normal range of motion NEUROLOGICAL: Normal speech, normal gait. PSYCH: Normal mood, normal affect. SKIN: Warm, Dry, normal turgor, no rashes or lesions noted. TRAVEL OUTSIDE OF THE [place] IN LAST 30 DAYS: No COUNTRY TRAVELED TO/FROM: [place] - Related Data Allergies/Adverse Reactions: iodine [Iodine] Allergy (Severe, Verified 06/18/17 11:39) SWELLING Shellfish * [Shellfish] Allergy (Severe, Verified 06/18/17 11:39) Anaphylaxis morphine [Morphine] Allergy (Mild, Verified 06/18/17 11:39) diazepam [From Valium] Allergy (Verified 06/18/17 11:39) furosemide [From Lasix] Allergy (Verified 06/18/17 11:39) Past Medical History - Social History Frequency of alcohol use: None Drug Abuse: None Family history: CAD - Past Medical History Cardiac Medical History: Reports: Hx Coronary Artery Disease, Hx DVT - right leg., Hx Heart Attack, Hx Hypercholesterolemia, Hx Hypertension, Hx Heart Murmur Pulmonary Medical History: Denies: Hx Asthma, Hx COPD, Hx Tuberculosis Neurological Medical History: Reports: Hx Cerebrovascular Accident - Lt sided weakness, Hx Seizures Endocrine Medical History: Reports: Hx Diabetes Mellitus Type 1, Hx Diabetes Mellitus Type 2. Denies: Hx Hyperthyroidism, Hx Hypothyroidism Renal/ Medical History: Reports: Hx Kidney Stones. Denies: Hx Peritoneal Dialysis GI Medical History: Reports: Hx Gastroesophageal Reflux Disease. Denies: Hx Cirrhosis, Hx Hepatitis Musculoskeltal Medical History: Reports Hx Arthritis, Reports Hx Muscle Weakness - Left Skin Medical History: Reports Hx Eczema, Denies Hx MRSA, Reports Hx Psoriasis Psychiatric Medical History: Denies: Hx Depression, Hx Schizoaffective Disorder Infectious Medical History: Denies: Hx Hepatitis, Hx MRSA Past Surgical History: Reports: Hx Cardiac Catheterization, Hx Cardiac Surgery - VSD having four previous surgeries as a child; heart valve defect, Hx Open Heart Surgery - VSD having four previous surgeries as a child; heart valve defect, Hx Vascular Surgery - Stents in right leg, Other - 4 separate operations for ventricular septal defect as a child.. Denies: Hx Pacemaker - Immunizations Immunizations up to date: Yes Hx Diphtheria, Pertussis, Tetanus Vaccination: Yes History of Influenza Vaccine for 03/2017 - 08/2017 Season: No Physical Exam - Vital signs Vitals: Temp Pulse Resp BP Pulse Ox 100.5 F H 111 H 22 H 173/104 H 95 06/18/17 11:46 06/18/17 11:46 06/18/17 11:46 06/18/17 11:46 06/18/17 11:46 Course - Vital Signs Vital signs: Temp Pulse Resp BP Pulse Ox 100.5 F H 111 H 22 H 173/104 H 95 06/18/17 11:46 06/18/17 11:46 06/18/17 11:46 06/18/17 11:46 06/18/17 11:46
[2017-06-18 13:16] LABS: HEMATOCRIT 40.6 % (37.9-51.0); HEMOGLOBIN 13.5 g/dL (13.5-17.0); MEAN CORPUSCULAR HEMOGLOBIN 28.1 pg (27.0-33.4); MEAN CORPUSCULAR HGB CONC 33.3 g/dL (32.0-36.0); MEAN CORPUSCULAR VOLUME 84 fl (80-97); PLATELET COUNT 259 10^3/uL (150-450); RED BLOOD COUNT 4.83 10^6/uL (4.35-5.55); RED CELL DISTRIBUTION WIDTH 15.5 % (11.5-14.0); WHITE BLOOD COUNT 12.6 10^3/uL (4.0-10.5)
[2017-06-18 13:32] LABS: A TYPE INFLUENZA AG NEGATIVE (NEGATIVE); B INFLUENZA AG NEGATIVE (NEGATIVE)
[2017-06-18 13:35] LABS: ABSOLUTE LYMPHOCYTES# (MANUAL) 0.6 10^3/uL (0.5-4.7); ABSOLUTE MONOCYTES # (MANUAL) 0.3 10^3/uL (0.1-1.4); ABSOLUTE NEUTROPHILS# (MANUAL) 11.7 10^3/uL (1.7-8.2); ANISOCYTOSIS SLIGHT; BASOPHILS % (MANUAL) 0 % (0-2); EOSINOPHILS % (MANUAL) 0 % (0-6); HYPOCHROMASIA SLIGHT; LYMPHOCYTES % (MANUAL) 4 % (13-45); MONOCYTES % (MANUAL) 2 % (3-13); PLATELET COMMENT ADEQUATE; POLYCHROMASIA SLIGHT; SEGMENTED NEUTROPHILS % (MAN) 93 % (42-78); TOTAL CELLS COUNTED 100; TOXIC GRANULATION 2+; TOXIC VACUOLATION PRESENT
[2017-06-18 13:38] LABS: ALANINE AMINOTRANSFERASE 14 U/L (21-72); ALBUMIN 3.9 g/dL (3.5-5.0); ALKALINE PHOSPHATASE 93 U/L (38-126); ANION GAP 10 (5-19); ASPARTATE AMINO TRANSFERASE 28 U/L (17-59); BILIRUBIN,DIRECT 0.4 mg/dL (0.0-0.4); BILIRUBIN,TOTAL 0.9 mg/dL (0.2-1.3); BLOOD UREA NITROGEN 15 mg/dL (7-20); CALCIUM 9.5 mg/dL (8.4-10.2); CARBON DIOXIDE 26 mmol/L (22-30); CHLORIDE 101 mmol/L (98-107); GLUCOSE 283 mg/dL (75-110); POTASSIUM 3.9 mmol/L (3.6-5.0); SODIUM 136.6 mmol/L (137-145); TOTAL PROTEIN 7.7 g/dL (6.3-8.2)
--- NOTE | 2017-06-18 14:08 | ER Document Report ---
ED General - General Chief Complaint: Syncope Stated Complaint: FALL,LEFT SIDE PAIN Time Seen by Provider: 06/18/17 12:03 Mode of Arrival: Ambulatory Information source: Patient TRAVEL OUTSIDE OF THE [place] IN LAST 30 DAYS: No COUNTRY TRAVELED TO/FROM: [facility] Onset: Just prior to arrival Onset/Duration: Sudden Quality of pain: Dull, Other - TENDERNESS Severity: Moderate Associated symptoms: Fever, Headache, Sweating, Other - URINARY FREQUENCY. denies: Chest pain Exacerbated by: Movement Similar symptoms previously: No - NO PRIOR H/O SYNCOPE Recently seen / treated by doctor: No - Related Data Allergies/Adverse Reactions: iodine [Iodine] Allergy (Severe, Verified 06/18/17 11:39) SWELLING Shellfish * [Shellfish] Allergy (Severe, Verified 06/18/17 11:39) Anaphylaxis morphine [Morphine] Allergy (Mild, Verified 06/18/17 11:39) diazepam [From Valium] Allergy (Verified 06/18/17 11:39) furosemide [From Lasix] Allergy (Verified 06/18/17 11:39) Past Medical History - General Information source: Patient - Social History Smoking Status: Never Smoker Frequency of alcohol use: None Drug Abuse: None Family History: Reviewed & Not Pertinent, Arthritis, CAD, CVA, DM, Hyperlipidemia, Hypertension, Malignancy, Other Patient has suicidal ideation: No Patient has homicidal ideation: No - Past Medical History Cardiac Medical History: Reports: Hx Coronary Artery Disease, Hx DVT - right leg., Hx Heart Attack, Hx Hypercholesterolemia, Hx Hypertension, Hx Heart Murmur , Other - CONGENITAL VSD, REPAIRED Pulmonary Medical History: Denies: Hx Asthma, Hx COPD, Hx Tuberculosis Neurological Medical History: Reports: Hx Cerebrovascular Accident - Lt sided weakness, Hx Seizures Endocrine Medical History: Reports: Hx Diabetes Mellitus Type 1, Hx Diabetes Mellitus Type 2. Denies: Hx Hyperthyroidism, Hx Hypothyroidism Renal/ Medical History: Reports: Hx Kidney Stones. Denies: Hx Peritoneal Dialysis GI Medical History: Reports: Hx Gastroesophageal Reflux Disease. Denies: Hx Cirrhosis, Hx Hepatitis Musculoskeltal Medical History: Reports Hx Arthritis, Reports Hx Muscle Weakness - Left Skin Medical History: Reports Hx Eczema, Denies Hx MRSA, Reports Hx Psoriasis Psychiatric Medical History: Denies: Hx Depression, Hx Schizoaffective Disorder Infectious Medical History: Denies: Hx Hepatitis, Hx MRSA Past Surgical History: Reports: Hx Cardiac Catheterization, Hx Cardiac Surgery - VSD having four previous surgeries as a child; heart valve defect, Hx Open Heart Surgery - VSD having four previous surgeries as a child; heart valve defect, Hx Vascular Surgery - Stents in right leg, Other - 4 separate operations for ventricular septal defect as a child.. Denies: Hx Pacemaker - Immunizations Immunizations up to date: Yes Hx Diphtheria, Pertussis, Tetanus Vaccination: Yes Hx Pneumococcal Vaccination: 03/24/13 Review of Systems - Review of Systems Constitutional: Fever, Weakness EENT: No symptoms reported Cardiovascular: No symptoms reported Respiratory: See HPI Gastrointestinal: No symptoms reported Genitourinary: See HPI Musculoskeletal: See HPI Skin: Other - PSORIASIS Neurological/Psychological: Lost consciousness, Headaches Physical Exam - Vital signs Vitals: Temp Pulse Resp BP Pulse Ox 100.5 F H 111 H 22 H 173/104 H 95 06/18/17 11:46 06/18/17 11:46 06/18/17 11:46 06/18/17 11:46 06/18/17 11:46 Interpretation: Hypertensive, Tachycardic, Tachypneic, Febrile - General General appearance: Alert In distress: None - HEENT Head: Normocephalic Eyes: Normal Conjunctiva: Normal Ears: Normal Nasal: Normal Mouth/Lips: Normal Mucous membranes: Normal Pharynx: Normal Neck: Normal, Supple - Respiratory Respiratory status: No respiratory distress Breath sounds: Rhonchi - Cardiovascular Rhythm: Regular, Tachycardia Heart sounds: Normal auscultation Murmur: No - Abdominal Inspection: Obese - Back Back: Tender - LEFT LUMBAR PARASPINOUS & FLANK - Extremities General upper extremity: Normal inspection General lower extremity: Normal inspection - Neurological Neuro grossly intact: Yes Cognition: Normal Orientation: AAOx4 - Psychological Associated symptoms: Normal affect, Normal mood - Skin Skin Temperature: Warm Skin Moisture: Dry Skin Color: Normal Skin Turgor: Elastic Course - Vital Signs Vital signs: Temp Pulse Resp BP Pulse Ox 100.5 F H 111 H 16 173/104 H 95 06/18/17 11:46 06/18/17 11:46 06/18/17 12:30 06/18/17 11:46 06/18/17 11:46 - Laboratory Result Diagrams: 06/18/17 12:53 06/18/17 12:53 Laboratory results interpreted by me: 06/18/17 06/18/17 12:53 12:53 WBC 12.6 H RDW 15.5 H Seg Neuts % (Manual) 93 H Lymphocytes % (Manual) 4 L Monocytes % (Manual) 2 L Abs Neuts (Manual) 11.7 H Sodium 136.6 L Glucose 283 H ALT 14 L - Diagnostic Test Radiology reviewed: Image reviewed, Reports reviewed - EKG Interpretation by Me Rate: Normal Rhythm: NSR [place]/QRS: LAHB/LAFB Voltage: Consistant with LVH P Waves: LAE When compared to previous EKG there are: No significant change Discharge - Discharge Clinical Impression: Diabetes mellitus type 2 in obese Syncope Qualifiers: Syncope type: unspecified Qualified Code(s): R55 - Syncope and collapse Hypertension Qualifiers: Hypertension type: essential hypertension Qualified Code(s): I10 - Essential ( primary) hypertension Pneumonia Qualifiers: Pneumonia type: due to unspecified organism Laterality: right Lung location: lower lobe of lung Qualified Code(s): J18.1 - Lobar pneumonia, unspecified organism Condition: Good Disposition: ADMITTED INPATIENT Admitting Provider: Hospitalist Unit Admitted: Telemetry
--- NOTE | 2017-06-18 14:22 | RADIOLOGY REPORT (SQ) ---
EXAM DESCRIPTION: CTA CHEST COMPLETED DATE/TIME: 06/18/2017 2:08 pm REASON FOR STUDY: hx pe, syncope , cough fever COMPARISON: Chest x-ray dated April 2017 and CTA of the chest dated October 2014 TECHNIQUE: CT scan of the chest performed using helical scanning technique with dynamic intravenous contrast injection. Images reviewed with lung, soft tissue and bone windows. Reconstructed coronal and sagittal MPR images reviewed. Additional 3 dimensional post-processing performed to develop Maximal Intensity Projection images (IA P). All images stored on PACS. All CT scanners at this facility use dose modulation, iterative reconstruction, and/or weight based d osing when appropriate to reduce radiation dose to as low as reasonably achievable (ALARA). [facility]: Dose Right [facility]: CareDose [facility]: Dose Right [facility]: Teradose 4D [facility]: Publons CONTRAST TYPE AND DOSE: contrast/concentration: Isovue 370.00 mg/ml; Total Contrast Delivered: 80.0 ml; Total Saline Delivered: 94.0 ml Contrast bolus optimized for the pulmonary arteries. Not diagnostic for the aorta. RENAL FUNCTION: Creatinine 1.09 RADIATION DOSE: CT Rad equipment meets quality standard of care and radiation dose reduction techniq ues were employed. CTDIvol: 20.6 - 23.2 mGy. DLP: 757 mGy-cm. . LIMITATIONS: None. FINDINGS: LUNGS AND PLEURA: Scattered ground-glass opacities are identified in the left lung. There are more confluent ground-glass opacities in the right mid and lower lung field. No pleural effusio ns are identified. No pneumothorax is seen. The appearance is most consistent with pulmonary edema although I cannot exclude a superimposed pneumonic infiltrate. AORTA AND GREAT VESSELS: No aneurysm. Contrast bolus not optimized for the aorta. HEART: No pericardial effusion. No significant coronary artery calcifications. PULMONARY ARTERIES: No emboli visualized in the main pulmonary arteries or the segmental branches. HILAR AND MEDIASTINAL STRUCTURES: No identified masses or abnormal nodes. HARDWARE: Patient is status post median sternotomy. UPPER ABDOMEN: No significant findings. Limited exam. THYROID AND OTHER SOFT TISSUES: No masses. No adenopathy. BONES: No acute or significant finding. 3D MIPS: Confirm above findings. OTHER: No other significant finding. IMPRESSION: No evidence for pulmonary embolic disease. Ground-glass opacities right greater than le ft as noted above most consistent with pulmonary edema although I cannot exclude superimposed pneumon ic infiltrates. No pleural effusions are identified. Other findings as noted above COMMENT: Quality ID # 436: Final reports with documentation of one or more dose reduction techniques (e.g., Automated exposure control, adjustment of the mA and/or kV according to patient size, use of iterative reconstruction technique) TECHNICAL DOCUMENTATION: JOB ID: [id number] [employer]- All Rights Reserved
[2017-06-18] MEDS ORDERED: CEFTRIAXONE 2 GM/D5W RTU 2 GM/50 ML RTUPB IV ONE (14:48)
[2017-06-18] MEDS ORDERED: NORMAL SALINE 1000 ML 1,000 ML IV ONE (14:52)
--- NOTE | 2017-06-18 15:21 | RADIOLOGY REPORT (SQ) ---
EXAM DESCRIPTION: CT HEAD WITHOUT COMPLETED DATE/TIME: 06/18/2017 3:11 pm REASON FOR STUDY: SYNCOPE COMPARISON: 01/17/2017. TECHNIQUE: Axial images acquired through the brain without intravenous contrast. Images reviewed wi th bone, brain and subdural windows. Images stored on PACS. All CT scanners at this facility use dose modulation, iterative reconstruction, and/or weight based d osing when appropriate to reduce radiation dose to as low as reasonably achievable (ALARA). [facility]: Dose Right [facility]: CareDose [facility]: Dose Right [facility]: Teradose 4D [facility]: Smart Desti RADIATION DOSE: CT Rad equipment meets quality standard of care and radiation dose reduction techniq ues were employed. CTDIvol: 64.6 mGy. DLP: 1034 mGy-cm. mGy. LIMITATIONS: None. FINDINGS: VENTRICLES: Normal size and contour. CEREBRUM: No masses. No hemorrhage. No midline shift. No evidence for acute infarction. Normal gra y/white matter differentiation. No areas of low density in the white matter. CEREBELLUM: No masses. No hemorrhage. No alteration of density. No evidence for acute infarction. EXTRAAXIAL SPACES: No fluid collections. No masses. ORBITS AND GLOBE: No intra- or extraconal masses. Normal contour of globe without masses. CALVARIUM: No fracture. PARANASAL SINUSES: No fluid or mucosal thickening. SOFT TISSUES: No mass or hematoma. OTHER: No other significant finding. IMPRESSION: NORMAL BRAIN CT WITHOUT CONTRAST. EVIDENCE OF ACUTE STROKE: NO. COMMENT: Quality ID # 436: Final reports with documentation of one or more dose reduction techniques (e.g., Automated exposure control, adjustment of the mA and/or kV according to patient size, use of iterative reconstruction technique) TECHNICAL DOCUMENTATION: JOB ID: [id number] [employer]- All Rights Reserved
--- NOTE | 2017-06-18 15:29 | RADIOLOGY REPORT (SQ) ---
EXAM DESCRIPTION: CT ABD/PELVIS NO ORAL OR IV COMPLETED DATE/TIME: 06/18/2017 3:11 pm REASON FOR STUDY: TRAUMA, L. FLANK AND LOW BACK PAIN COMPARISON: 05/11/2016. TECHNIQUE: CT scan of the abdomen and pelvis performed without intravenous or oral contrast. There is contrast in the collecting system of the kidneys and in the bladder from previous chest CTA. Imag es reviewed with lung, soft tissue, and bone windows. Reconstructed coronal and sagittal MPR images r eviewed. All images stored on PACS. All CT scanners at this facility use dose modulation, iterative reconstruction, and/or weight based d osing when appropriate to reduce radiation dose to as low as reasonably achievable (ALARA). [facility]: Dose Right [facility]: CareDose [facility]: Dose Right [facility]: Teradose 4D [facility]: Smart Vibrynt RADIATION DOSE: CT Rad equipment meets quality standard of care and radiation dose reduction techniq ues were employed. CTDIvol: 14.4 mGy. DLP: 859 mGy-cm.mGy. LIMITATIONS: None. FINDINGS: LOWER CHEST: See separate report of the CT of the chest. NON-CONTRASTED LIVER, SPLEEN, ADRENALS: Evaluation limited by lack of IV contrast. No identified sign ificant masses. PANCREAS: No masses. No peripancreatic inflammatory changes. GALLBLADDER: No identified stones by CT criteria. No inflammatory changes to suggest cholecystitis. RIGHT KIDNEY AND URETER: No suspicious masses. Assessment limited by lack of IV contrast. No signif icant calcifications. No hydronephrosis or hydroureter. LEFT KIDNEY AND URETER: Cortical cyst. No suspicious masses. Assessment limited by lack of IV contra st. No significant calcifications. No hydronephrosis or hydroureter. AORTA AND RETROPERITONEUM: No aneurysm. No retroperitoneal masses or adenopathy. BOWEL AND PERITONEAL CAVITY: No obvious masses or inflammatory changes. No free fluid. APPENDIX: Normal. PELVIS, BLADDER, AND ABDOMINAL WALL:No abnormal masses. No free fluid. Bladder normal. BONES: No significant findings. OTHER: No other significant finding. IMPRESSION: NO SIGNIFICANT OR ACUTE PROCESS IN THE ABDOMEN OR PELVIS. INCIDENTAL CORTICAL CYST IN T HE LEFT KIDNEY. COMMENT: Quality ID # [id number]: Final reports with documentation of one or more dose reduction techniques (e.g., Automated exposure control, adjustment of the mA and/or kV according to patient size, use of iterative reconstruction technique) TECHNICAL DOCUMENTATION: JOB ID: [id number] [email or web address]- All Rights Reserved
[2017-06-18] MEDS ORDERED: METOPROLOL TARTRATE 50 MG TABLET PO ONE (15:47)
[2017-06-18] MEDS ORDERED: LEVALBUTEROL HCL NEB 1.25 MG/3 ML AMPUL NEB PRN (16:17)
[2017-06-18 16:49] LABS: APPEARANCE,URINE CLEAR; BILIRUBIN,URINE NEGATIVE (NEGATIVE); COLOR,URINE YELLOW; GLUCOSE, URINE 150 mg/dL (NEGATIVE); KETONES,URINE NEGATIVE (NEGATIVE); LEUKOCYTE ESTERASE,URINE NEGATIVE (NEGATIVE); NITRITE,URINE NEGATIVE (NEGATIVE); PROTEIN,URINE >=500 mg/dL (NEGATIVE); UROBILINOGEN,URINE NEGATIVE mg/dL (<2.0)
[2017-06-18 16:50] LABS: URINE SPECIFIC GRAVITY > 1.060
[2017-06-18] MEDS ORDERED: DEXTROSE 50%-WATER 25 GM/50 ML DISP.SYRIN IV PRN ×2 (17:15)
[2017-06-18] MEDS ORDERED: DEXTROSE 40% GEL 15 GM TUBE PO PRN ×2 (17:15)
[2017-06-18] MEDS ORDERED: GLUCAGON,HUMAN RECOMB 1 MG INJ IM PRN (17:15)
[2017-06-18] MEDS ORDERED: ENOXAPARIN SODIUM INJ 40 MG/0.4 ML DISP.SYRIN SUBCUT ONE (17:30)
--- NOTE | 2017-06-18 17:34 | PDOC H&P ---
History of Present Illness Admission Date/PCP: 06/18/17 16:27 Has no PCP. History of Present Illness: SHARON JERONIMO is a 46 year old male with a past medical history of Coronary artery disease [place] in 2010 with 2 stents in the [facility] at [facility]. DVT in the right leg twice postsurgical Hypertension Hyperlipidemia History of ventricular septal defect status post 4 surgeries in the past Gastroesophageal reflux disease Type 2 diabetes, [id number] Osteoarthritis GERD Eczema Psoriasis He reports having some cough with yellow expectoration and shortness of breath and pleuritic chest pain with decreased appetite for the past couple of days. He has also been constipated and has had some lower abdominal discomfort. Denies sore throat rhinorrhea or fever. He has had family visiting him from out of town and earlier today he had a witnessed syncopal episode where he fell down and a couple of chairs broke as he fell to the floor and was unresponsive for what he reports is about 30 minutes. He denies any tongue biting or incontinence or seizure-like movements. No complaints at present. He reports being compliant with all his medications. Past Medical History Past Medical History: Coronary artery disease Right leg DVT not on anticoagulation anymore Myocardial infarction 2010 Hyperlipidemia Hypertension Type 2 diabetes Gastroesophageal reflux disease Osteoarthritis Eczema Psoriasis Cardiac Medical History: Reports: Coronary Artery Disease, DVT - right leg., Myocardial Infarction, Hyperlipidema, Hypertension, Heart Murmur, Other - CONGENITAL VSD, REPAIRED Pulmonary Medical History: Denies: Asthma, Chronic Obstructive Pulmonary Disease (COPD), Tuberculosis Neurological Medical History: Reports: Seizures Endocrine Medical History: Reports: Diabetes Mellitus Type 1, Diabetes Mellitus Type 2 Denies: Hyperthyroidism, Hypothyroidism GI Medical History: Reports: Gastroesophageal Reflux Disease Denies: Cirrhosis, Hepatitis Musculoskeltal Medical History: Reports: Arthritis Skin Medical History: Reports: Eczema, Psoriasis Psychiatric Medical History: Denies: Depression, Schizoaffective Disorder Infectious Medical History: Denies: Methicillin-Resistant Staph Aureus Past Surgical History Past Surgical History: Vascular surgery for stents to the right leg Open heart surgery for ventricular septal defect repair Past Surgical History: Reports: Cardiac Catheterization, Vascular Surgery - Stents in right leg, Other - 4 separate operations for ventricular septal defect as a child. Denies: Pacemaker Social History Information Source: Patient Smoking Status: Never Smoker Frequency of Alcohol Use: None Hx Recreational Drug Use: No Drugs: None Hx Prescription Drug Abuse: No Family History Family History: Reviewed & Not Pertinent, Arthritis, CAD, CVA, DM, Hyperlipidemia, Hypertension, Malignancy, Other Parental Family History Reviewed: Yes Children Family History Reviewed: Yes Sibling(s) Family History Reviewed.: Yes Medication/Allergy Allergies/Adverse Reactions: iodine [Iodine] Allergy (Severe, Verified 06/18/17 11:39) SWELLING Shellfish * [Shellfish] Allergy (Severe, Verified 06/18/17 11:39) Anaphylaxis morphine [Morphine] Allergy (Mild, Verified 06/18/17 11:39) diazepam [From Valium] Allergy (Verified 06/18/17 11:39) furosemide [From Lasix] Allergy (Verified 06/18/17 11:39) Review of Systems All systems: reviewed and no additional remarkable complaints except as stated Constitutional: PRESENT: anorexia. ABSENT: headache(s) Eyes: ABSENT: visual disturbances Ears: ABSENT: hearing changes Nose, Mouth, and Throat: ABSENT: headache(s), sore throat Cardiovascular: PRESENT: dyspnea on exertion. ABSENT: edema, palpitations Respiratory: PRESENT: cough, dyspnea, sputum Gastrointestinal: PRESENT: abdominal pain, constipation. ABSENT: diarrhea, heartburn, hematemesis, hematochezia Genitourinary: ABSENT: dysuria Musculoskeletal: ABSENT: deformity, joint swelling Integumentary: ABSENT: lesions, rash Neurological: PRESENT: syncope. ABSENT: convulsions, focal weakness Psychiatric: ABSENT: anxiety, depression Endocrine: ABSENT: heat intolerance, polydipsia Hematologic/Lymphatic: ABSENT: easy bruising Allergic/Immunologic: PRESENT: as per HPI Physical Exam Vital Signs: Temp Pulse Resp BP Pulse Ox 100.5 F H 111 H 16 173/104 H 95 06/18/17 11:46 06/18/17 11:46 06/18/17 12:30 06/18/17 11:46 06/18/17 11:46 Additional comments: Well Developed well-nourished young -Citizen Of [place] male lying in bed not in acute distress HEENT: Pupils equal reactive to light muddy sclera no discharge, moist pink oropharyngeal mucosa with no lesions Lungs: Decreased breath sounds bilaterally no wheezing heard, use of accessory muscles Cardiac: S1 S2 regular, S3 present, systolic murmur heard in the precordial area , positive thrill palpable. Abdomen: Mild tenderness in the right and left lower quadrant, normal bowel sounds, soft, no guarding Skin: Warm and dry Neurologic: No speech, no facial droop, alert oriented 3 Results Impressions: Chest/Abdomen CTA 06/18/17 12:09 IMPRESSION: No evidence for pulmonary embolic disease. Ground-glass opacities right greater than left as noted above most consistent with pulmonary edema although I cannot exclude superimposed pneumonic infiltrates. No pleural effusions are identified. Other findings as noted above Abdomen/Pelvis CT 06/18/17 14:46 IMPRESSION: NO SIGNIFICANT OR ACUTE PROCESS IN THE ABDOMEN OR PELVIS. INCIDENTAL CORTICAL CYST IN THE LEFT KIDNEY. Head CT 06/18/17 14:46 IMPRESSION: NORMAL BRAIN CT WITHOUT CONTRAST. EVIDENCE OF ACUTE STROKE: NO. Status: Image reviewed by me Assessment & Plan - Diagnosis (1) Pneumonia Qualifiers: Pneumonia type: due to unspecified organism Laterality: bilateral Lung location: unspecified part of lung Qualified Code(s): J18.9 - Pneumonia, unspecified organism Is this a current diagnosis for this admission?: Yes Plan: Rocephin and Levaquin. Neb treatments, supplemental oxygen as needed Follow-up on blood and sputum cultures. (3) Diabetes mellitus type 2 in obese Is this a current diagnosis for this admission?: Yes Plan: hold Metformin. Diabetic diet and insulin sliding scale. (4) Hypertension Qualifiers: Hypertension type: essential hypertension Qualified Code(s): I10 - Essential (primary) hypertension Is this a current diagnosis for this admission?: Yes Plan: Outpatient medications. Continue to monitor. (5) Syncope Qualifiers: Syncope type: unspecified Qualified Code(s): R55 - Syncope and collapse Is this a current diagnosis for this admission?: Yes Plan: Check Orthostatic blood pressures. gentle IV fluids We will get a repeat echocardiogram to see if he has had worsening of his valvular heart disease or issues with his VSD. He tells me that he recently saw a revenue inspector in [place] on April 04 who told him that he may need repeat heart surgery. (6) Abdominal pain in male Is this a current diagnosis for this admission?: Yes Plan: Scan of the abdomen and pelvis was unremarkable. He has been constipated this could likely be the cause for this. We will give him some laxatives. (7) Valvular heart disease Is this a current diagnosis for this admission?: Yes Plan: Check echo. (8) Personal history of DVT (deep vein thrombosis) Is this a current diagnosis for this admission?: Yes Plan: Not on anticoagulation at present. Has never had pulmonary embolism per patient. - Time Time Spent: 50 to 70 Minutes - Inpatient Certification Medical Necessity: Need For IV Fluids, Need for IV Antibiotics, Risk of Complication if Not Cared For in Hospital
[2017-06-18] MEDS: DOCUSATE SODIUM 100 MG CAPSULE PO SCH (19:06)
[2017-06-18] MEDS: ATORVASTATIN CALCIUM 40 MG TABLET PO SCH (19:06)
[2017-06-18] MEDS: LACTOBACILLUS ACIDOPHILUS 250 MG TAB PO SCH (19:07)
[2017-06-18] MEDS: METOPROLOL SUCCINATE 50 MG TAB.SR.24H PO SCH (19:07)
[2017-06-18] MEDS: LEVOFLOXACIN 750 MG/D5W RTU 750 MG/150 ML RTUPB IV SCH (19:08)
[2017-06-18] MEDS: 1/2 NORMAL SALINE 1,000 ML IV PRN (19:10)
[2017-06-18] MEDS: LEVALBUTEROL HCL NEB 0.63 MG/3 ML AMPUL NEB SCH (20:19)
--- NOTE | 2017-06-18 20:31 | EKG REPORT ---
SEVERITY:- ABNORMAL ECG - SINUS RHYTHM LEFT ATRIAL ABNORMALITY LEFT ANTERIOR FASCICULAR BLOCK LEFT VENTRICULAR HYPERTROPHY ABNORMAL T, CONSIDER ISCHEMIA, ANT-LAT LEADS BORDERLINE PROLONGED QT INTERVAL : Confirmed by: Loyda Fernandes MD 18-Jun-2017 20:30:15
[2017-06-18] MEDS: GUAIFENESIN 600 MG TABLET.SA PO SCH (22:06)
[2017-06-18] MEDS ORDERED: ACETAMINOPHEN 325 MG TABLET PO PRN (22:40)
[2017-06-18] MEDS: INSULIN LISPRO 100 UNIT/ML 3 ML VIAL SUBCUT PRN (22:47)
[2017-06-18] MEDS ORDERED: SENNOSIDES/DOCUSATE 8.6-50 MG 1 EACH TABLET ONE (23:09)
[2017-06-18] MEDS: SENNOSIDES/DOCUSATE 8.6-50 MG 1 EACH TABLET PO SCH (23:58)
[2017-06-19 05:04] LABS: HEMATOCRIT 38.4 % (37.9-51.0); HEMOGLOBIN 12.6 g/dL (13.5-17.0); MEAN CORPUSCULAR HGB CONC 32.9 g/dL (32.0-36.0); MEAN CORPUSCULAR VOLUME 85 fl (80-97); PLATELET COUNT 221 10^3/uL (150-450); RED BLOOD COUNT 4.51 10^6/uL (4.35-5.55); RED CELL DISTRIBUTION WIDTH 15.3 % (11.5-14.0); WHITE BLOOD COUNT 12.6 10^3/uL (4.0-10.5)
[2017-06-19 05:18] LABS: ALANINE AMINOTRANSFERASE 23 U/L (21-72); ALBUMIN 3.5 g/dL (3.5-5.0); ALKALINE PHOSPHATASE 78 U/L (38-126); ANION GAP 11 (5-19); ASPARTATE AMINO TRANSFERASE 12 U/L (17-59); BILIRUBIN,DIRECT 0.2 mg/dL (0.0-0.4); BILIRUBIN,TOTAL 0.3 mg/dL (0.2-1.3); BLOOD UREA NITROGEN 19 mg/dL (7-20); CARBON DIOXIDE 21 mmol/L (22-30); CHLORIDE 99 mmol/L (98-107); MAGNESIUM 1.7 mg/dL (1.6-2.3); PHOSPHORUS 2.3 mg/dL (2.5-4.5); POTASSIUM 4.1 mmol/L (3.6-5.0); SODIUM 131.2 mmol/L (137-145); TOTAL PROTEIN 6.9 g/dL (6.3-8.2)
[2017-06-19 05:26] LABS: GLUCOSE 474 mg/dL (75-110)
[2017-06-19] MEDS ORDERED: INSULIN REG, HUMAN 100 UNIT/ML 3 ML VIAL (PYX) IV ONE (05:45)
[2017-06-19] MEDS ORDERED: INSULIN REG, HUMAN 100 UNIT/ML 3 ML VIAL (PYX) ONE (06:20)
[2017-06-19] MEDS: METOPROLOL SUCCINATE 50 MG TAB.SR.24H PO SCH ×2 (06:32→16:30)
[2017-06-19] MEDS: LEVALBUTEROL HCL NEB 0.63 MG/3 ML AMPUL NEB SCH ×4 (07:51→20:16)
[2017-06-19] MEDS ORDERED: LISINOPRIL 10 MG TABLET PO SCH (10:00)
[2017-06-19] MEDS ORDERED: AMLODIPINE BESYLATE 5 MG TABLET PO SCH (10:00)
[2017-06-19] MEDS: INSULIN LISPRO 100 UNIT/ML 3 ML VIAL SUBCUT PRN ×3 (10:26→22:25)
[2017-06-19] MEDS: ASPIRIN 81 MG TABLET, CHEWABLE PO SCH (10:26)
[2017-06-19] MEDS: CEFTRIAXONE 1 GM/D5W RTU 1 GM/50 ML RTUPB IV SCH (10:27)
[2017-06-19] MEDS: GUAIFENESIN 600 MG TABLET.SA PO SCH ×2 (10:28→22:25)
[2017-06-19] MEDS: ENOXAPARIN SODIUM INJ 40 MG/0.4 ML DISP.SYRIN SUBCUT SCH (10:28)
[2017-06-19] MEDS: LACTOBACILLUS ACIDOPHILUS 250 MG TAB PO SCH ×2 (10:28→16:30)
[2017-06-19] MEDS: DOCUSATE SODIUM 100 MG CAPSULE PO SCH ×2 (10:28→16:32)
--- NOTE | 2017-06-19 12:36 | XCELERA REPORT ---
[address] [address] Transthoracic Echocardiogram Report Name: SHARON JERONIMO Age: 46 yrs Gender: Male : 1970 Patient Status: Inpatient Patient Location: [address] [place] [address] Study Date: 06/19/2017 11:17 AM Height: 71 in Weight: 248 lb BSA: 2.3 m2 Procedure: A complete two-dimensional transthoracic echocardiogram was performed (2D, M-mode, spectral and color flow Doppler). The study was technically difficult with many images being suboptimal in quality. Reason For Study: Syncope, h/o VSD repair Ordering Physician: EVAN WOOTEN Performed By: Diana Ralph Interpretation Summary Left ventricular systolic function is mildly reduced. The Ejection Fraction estimate is 45-50% Doppler measurements suggest pseudonormalized left ventricular relaxation, which is associated with grade II/IV or mild to moderate diastolic dysfunction Not all wall segments were well visualized. Very small residual membranous VSD There is moderate concentric left ventricular hypertrophy. The left ventricle is grossly normal size. The right ventricular systolic function is normal. The right atrium is mildly dilated. The left atrium is mildly dilated. There is a mild amount of mitral regurgitation There is no mitral valve stenosis. There is a mild amount of aortic regurgitation There is no aortic valve stenosis There is a trace to mild amount of tricuspid regurgitation There is mild pulmonary hypertension by echo Right ventricular systolic pressure is estimated to be elevated at 40- 50mmHg. There is no pericardial effusion. MMode/2D Measurements & Calculations RVDd: 3.3 cm LVIDd: 5.6 cm FS: 14.4 % EPSS: 1.3 cm IVSd: 1.5 cm LVIDs: 4.8 cm EDV(Teich): 156.1 ml LVPWd: 1.5 cm ESV(Teich): 108.8 ml EF(Teich): 30.3 % Ao root diam: 3.5 cm LVOT diam: 2.3 cm Ao root area: 9.7 cm2 LVOT area: 4.2 cm2 LA dimension: 4.5 cm Doppler Measurements & Calculations MV E max bishnu: MV P1/2t max bishnu: Ao V2 max: AI max bishnu: 140.2 cm/sec 140.2 cm/sec 128.4 cm/sec 316.7 cm/sec MV A max bishnu: MV P1/2t: 52.6 msec Ao max PG: AI max P.4 cm/sec MVA(P1/2t): 4.2 cm2 6.6 mmHg 40.1 mmHg MV E/A: 3.0 MV dec slope: WILLAM(V,D): 2.9 cm2 AI dec slope: 780.6 cm/sec2 109.8 cm/sec2 AI P1/2t: 844.6 msec LV V1 max PG: PA V2 max: PI end-d bishnu: TR max bishnu: 3.1 mmHg 73.1 cm/sec 152.0 cm/sec 299.2 cm/sec LV V1 max: PA max P.1 mmHg TR max P.2 cm/sec 35.8 mmHg Left Ventricle The left ventricle is grossly normal size. There is moderate concentric left ventricular hypertrophy. Left ventricular systolic function is mildly reduced. The Ejection Fraction estimate is 45-50%. Doppler measurements suggest pseudonormalized left ventricular relaxation, which is associated with grade II/IV or mild to moderate diastolic dysfunction. Not all wall segments were well visualized. Very small residual membranous VSD. Right Ventricle The right ventricle is grossly normal size. There is normal right ventricular wall thickness. The right ventricular systolic function is normal. Atria The right atrium is mildly dilated. The left atrium is mildly dilated. Interarterial septum not well visualized and not well dopplered. Cannot comment on ASD/PFO presence. Mitral Valve The mitral valve leaflets are sclerotic, but show no functional abnormalities. There is no mitral valve stenosis. There is a mild amount of mitral regurgitation. Aortic Valve The aortic valve is grossly normal. There is no aortic valve stenosis. There is a mild amount of aortic regurgitation. Tricuspid Valve The tricuspid valve is not well visualized, but is grossly normal. There is no tricuspid stenosis. There is a trace to mild amount of tricuspid regurgitation. There is mild pulmonary hypertension by echo. Right ventricular systolic pressure is estimated to be elevated at 40-50mmHg. Pulmonic Valve The pulmonic valve is not well visualized. Great Vessels The aortic root is not well visualized but is probably normal size. The inferior vena cava appeared normal and decreased < 50% with respiration (RAP 10-15 mmHg). Effusions There is no pericardial effusion. : JE October Jenifer Khan
[2017-06-19] MEDS ORDERED: CLOBETASOL PROPIONATE 0.05% CREAM 15 GM TP SCH (13:45)
--- NOTE | 2017-06-19 14:15 | PDOC PROGRESS REPORT ---
Subjective Progress Note for:: 06/19/17 Subjective:: He feels better. He is requesting a steroid cream for psoriasis plaques on his wrists and legs. Reason For Visit: PNEUMONIA Physical Exam Vital Signs: Temp Pulse Resp BP Pulse Ox 97.4 F 76 16 156/104 H 97 06/19/17 12:00 06/19/17 12:19 06/19/17 12:19 06/19/17 12:00 06/19/17 12:19 Pulse Oximeter Continuous Start: 06/18/17 16: 18 Freq: RTQ4 Status: Active Document 06/19/17 12:19 [facility] [place]: 06/19/17 12:29 [facility] [email or web address]) Pulse Oximetry Assessment Oxygen Saturation (92-100) 97 Oxygen Delivery Method Room Air Fraction of Inspired Oxygen (FIO2) 21 Equipment Usage Equipment in Use Continuous SpO2 Machine # N-2 Intake & Output 06/18/17 06/19/17 06/20/17 06:59 06:59 06:59 Intake Total 1950 Output Total 400 Balance 1550 Weight 136.4 kg General appearance: PRESENT: no acute distress, obese Head exam: PRESENT: atraumatic, normocephalic Eye exam: PRESENT: EOMI, PERRLA Mouth exam: PRESENT: neck supple Respiratory exam: PRESENT: clear to auscultation bernardo. ABSENT: rales, rhonchi, wheezes Cardiovascular exam: PRESENT: RRR. ABSENT: diastolic murmur, rubs, systolic murmur GI/Abdominal exam: PRESENT: normal bowel sounds, soft. ABSENT: distended, guarding, mass, organolmegaly, rebound, tenderness Extremities exam: ABSENT: pedal edema Musculoskeletal exam: PRESENT: ambulatory Neurological exam: PRESENT: alert, awake, oriented to person, oriented to place , oriented to time, oriented to situation, CN II-XII grossly intact. ABSENT: motor sensory deficit Skin exam: PRESENT: rash Results Laboratory Results: 06/19/17 04:50 06/19/17 04:50 06/19/17 06/19/17 04:50 04:50 WBC 12.6 H RBC 4.51 Hgb 12.6 L Hct 38.4 MCV 85 MCH 28.0 MCHC 32.9 RDW 15.3 H Plt Count 221 Sodium 131.2 L Potassium 4.1 Chloride 99 Carbon Dioxide 21 L Anion Gap 11 BUN 19 Creatinine 1.15 Est GFR ( Amer) > 60 Est GFR (Non-Af Amer) > 60 Glucose 474 H* Calcium 9.0 Phosphorus 2.3 L Magnesium 1.7 Total Bilirubin 0.3 AST 12 L ALT 23 Alkaline Phosphatase 78 Total Protein 6.9 Albumin 3.5 06/18/17 22:50 Sputum Gram Stain - Final 06/18/17 22:50 Sputum Sputum Culture - Final 06/19/17 04:50 NT-Pro-B Natriuret Pep 3440 H Impressions: Chest/Abdomen CTA 06/18/17 12:09 IMPRESSION: No evidence for pulmonary embolic disease. Ground-glass opacities right greater than left as noted above most consistent with pulmonary edema although I cannot exclude superimposed pneumonic infiltrates. No pleural effusions are identified. Other findings as noted above Abdomen/Pelvis CT 06/18/17 14:46 IMPRESSION: NO SIGNIFICANT OR ACUTE PROCESS IN THE ABDOMEN OR PELVIS. INCIDENTAL CORTICAL CYST IN THE LEFT KIDNEY. Head CT 06/18/17 14:46 IMPRESSION: NORMAL BRAIN CT WITHOUT CONTRAST. EVIDENCE OF ACUTE STROKE: NO. Assessment & Plan - Diagnosis (1) Diabetes mellitus type 2 in obese Is this a current diagnosis for this admission?: Yes Plan: Blood sugars are elevated. Add Lantus 18 units daily. (2) Hypertension Qualifiers: Hypertension type: essential hypertension Qualified Code(s): I10 - Essential (primary) hypertension Is this a current diagnosis for this admission?: Yes Plan: Poorly controlled. Increase amlodipine to 10 mg daily. Increase lisinopril to 40 mg daily. (3) Syncope Qualifiers: Syncope type: unspecified Qualified Code(s): R55 - Syncope and collapse Is this a current diagnosis for this admission?: Yes Plan: Echo showed a very small residual membranous VSD. His LVEF is mildly reduced at 45-50%. He has grade 2-4 mild to moderate diastolic dysfunction. He also has moderate concentric LVH. RVSP was 40-50 mmHg. Continue telemetry. Check urine drug screen, and troponin. (4) Diastolic CHF Qualifiers: Congestive heart failure chronicity: chronic Qualified Code(s): I50.32 - Chronic diastolic (congestive) heart failure Is this a current diagnosis for this admission?: Yes Plan: An echocardiogram. I would like to give him a diuretic. However, he has furosemide listed as an allergy. I will need to inquire about that. (5) Pulmonary hypertension Is this a current diagnosis for this admission?: Yes Plan: Based on echocardiogram today. Continue to monitor. - Time Time Spent with patient: 35 or more minutes Medications reviewed and adjusted accordingly: Yes Anticipated discharge: Home Within: within 48 hours - Inpatient Certification Based on my medical assessment, after consideration of the patient's comorbidities, presenting symptoms, or acuity I expect that the services needed warrant INPATIENT care.: Yes I certify that my determination is in accordance with my understanding of Medicare's requirements for reasonable and necessary INPATIENT services [42 CFR 412.3e].: Yes Medical Necessity: Need For Continuous Telemetry Monitoring
[2017-06-19] MEDS ORDERED: AMLODIPINE BESYLATE 5 MG TABLET PO ONE (15:00)
[2017-06-19] MEDS ORDERED: LISINOPRIL 10 MG TABLET PO ONE (15:00)
[2017-06-19] MEDS ORDERED: INSULIN GLARGINE,HUM.REC.ANLOG 300 UNIT/3 ML INSULN.PEN SUBCUT ONE (16:00)
[2017-06-19 16:12] LABS: URINE AMPHETAMINES SCREEN NEGATIVE; URINE BARBITURATES SCREEN NEGATIVE; URINE BENZODIAZEPINES SCREEN NEGATIVE; URINE COCAINE SCREEN NEGATIVE; URINE MARIJUANA (THC) SCREEN NEGATIVE; URINE METHADONE SCREEN NEGATIVE; URINE PHENCYCLIDINE SCREEN NEGATIVE
[2017-06-19] MEDS: PHOSPHORUS #1 250 MG TABLET PO SCH ×2 (16:25→22:25)
[2017-06-19] MEDS: ATORVASTATIN CALCIUM 40 MG TABLET PO SCH (16:30)
[2017-06-19] MEDS: MAGNESIUM OXIDE 400 MG TABLET PO SCH (16:31)
[2017-06-19] MEDS: LEVOFLOXACIN 750 MG/D5W RTU 750 MG/150 ML RTUPB IV SCH (16:31)
[2017-06-20] MEDS: 1/2 NORMAL SALINE 1,000 ML IV PRN ×2 (02:49→21:32)
[2017-06-20] MEDS: OXYCODONE-ACETAMINOPHEN 5-325 MG TABLET PO PRN (03:12)
[2017-06-20 05:18] LABS: HEMATOCRIT 36.4 % (37.9-51.0); MEAN CORPUSCULAR HEMOGLOBIN 28.2 pg (27.0-33.4); MEAN CORPUSCULAR HGB CONC 32.9 g/dL (32.0-36.0); MEAN CORPUSCULAR VOLUME 86 fl (80-97); PLATELET COUNT 218 10^3/uL (150-450); RED BLOOD COUNT 4.25 10^6/uL (4.35-5.55); RED CELL DISTRIBUTION WIDTH 15.5 % (11.5-14.0); WHITE BLOOD COUNT 9.4 10^3/uL (4.0-10.5)
[2017-06-20 05:34] LABS: ANION GAP 6 (5-19); BLOOD UREA NITROGEN 18 mg/dL (7-20); CALCIUM 8.4 mg/dL (8.4-10.2); CARBON DIOXIDE 25 mmol/L (22-30); CHLORIDE 105 mmol/L (98-107); GLUCOSE 176 mg/dL (75-110); POTASSIUM 3.9 mmol/L (3.6-5.0)
[2017-06-20] MEDS: METOPROLOL SUCCINATE 50 MG TAB.SR.24H PO SCH ×2 (06:20→17:44)
[2017-06-20] MEDS: LEVALBUTEROL HCL NEB 0.63 MG/3 ML AMPUL NEB SCH ×4 (08:02→20:36)
[2017-06-20] MEDS: ENOXAPARIN SODIUM INJ 40 MG/0.4 ML DISP.SYRIN SUBCUT SCH (08:43)
[2017-06-20] MEDS: CEFTRIAXONE 1 GM/D5W RTU 1 GM/50 ML RTUPB IV SCH (08:43)
[2017-06-20] MEDS: PHOSPHORUS #1 250 MG TABLET PO SCH ×4 (08:44→21:32)
[2017-06-20] MEDS: ASPIRIN 81 MG TABLET, CHEWABLE PO SCH (08:44)
[2017-06-20] MEDS: GUAIFENESIN 600 MG TABLET.SA PO SCH ×2 (08:45→21:32)
[2017-06-20] MEDS: MAGNESIUM OXIDE 400 MG TABLET PO SCH ×2 (08:45→17:44)
[2017-06-20] MEDS: LACTOBACILLUS ACIDOPHILUS 250 MG TAB PO SCH ×2 (08:45→17:43)
[2017-06-20] MEDS ORDERED: AMLODIPINE BESYLATE 10 MG TABLET PO SCH (10:00)
[2017-06-20] MEDS ORDERED: INSULIN GLARGINE,HUM.REC.ANLOG 300 UNIT/3 ML INSULN.PEN SUBCUT SCH (10:00)
[2017-06-20] MEDS ORDERED: LISINOPRIL 10 MG TABLET PO SCH (10:00)
[2017-06-20] MEDS: DOCUSATE SODIUM 100 MG CAPSULE PO SCH ×2 (10:03→17:30)
--- NOTE | 2017-06-20 11:43 | PDOC PROGRESS REPORT ---
Subjective Progress Note for:: 06/20/17 Subjective:: He feels not much better. He still has chest congestion. However, the steroid cream has helped his psoriasis. Reason For Visit: PNEUMONIA Physical Exam Vital Signs: Temp Pulse Resp BP Pulse Ox 98.2 F 75 16 132/96 H 98 06/20/17 07:11 06/20/17 08:00 06/20/17 08:00 06/20/17 07:11 06/20/17 08:00 Pulse Oximeter Continuous Start: 06/18/17 16: 18 Freq: RTQ4 Status: Active Document 06/20/17 08:00 [facility] [place] (Rec: 06/20/17 08:11 [facility] [place] [email or web address]) Pulse Oximetry Assessment Oxygen Saturation (92-100) 98 Oxygen Delivery Method Room Air Fraction of Inspired Oxygen (FIO2) 21 Equipment Usage Equipment Standby Continuous SpO2 Machine # N 2 Intake & Output 06/19/17 06/20/17 06/21/17 06:59 06:59 06:59 Intake Total 1950 2890 Output Total 400 700 Balance 1550 2190 Weight 136.4 kg 136.5 kg General appearance: PRESENT: no acute distress, well-developed, well-nourished Head exam: PRESENT: atraumatic, normocephalic Eye exam: PRESENT: conjunctiva pink, EOMI, PERRLA. ABSENT: scleral icterus Neck exam: ABSENT: carotid bruit, JVD, lymphadenopathy, thyromegaly Respiratory exam: PRESENT: crackles - Bibasilar, decreased breath sounds - Bibasilar, tachypnea, unlabored. ABSENT: accessory muscle use Cardiovascular exam: PRESENT: RRR GI/Abdominal exam: PRESENT: normal bowel sounds, soft. ABSENT: distended, guarding, mass, organolmegaly, rebound, tenderness Extremities exam: ABSENT: pedal edema Neurological exam: PRESENT: alert, awake, oriented to person, oriented to place , oriented to time, oriented to situation, CN II-XII grossly intact. ABSENT: motor sensory deficit Psychiatric exam: PRESENT: appropriate affect, normal mood. ABSENT: homicidal ideation, suicidal ideation Results Laboratory Results: 06/20/17 04:19 06/20/17 04:19 06/20/17 06/20/17 04:19 04:19 WBC 9.4 RBC 4.25 L Hgb 12.0 L Hct 36.4 L MCV 86 MCH 28.2 MCHC 32.9 RDW 15.5 H Plt Count 218 Sodium 136.0 L Potassium 3.9 Chloride 105 Carbon Dioxide 25 Anion Gap 6 BUN 18 Creatinine 1.14 Est GFR ( Amer) > 60 Est GFR (Non-Af Amer) > 60 Glucose 176 H Calcium 8.4 06/18/17 22:50 Sputum Gram Stain - Final 06/18/17 22:50 Sputum Sputum Culture - Final 06/19/17 06/19/17 04:50 15:20 Troponin I < 0.012 NT-Pro-B Natriuret Pep 3440 H Impressions: Chest/Abdomen CTA 06/18/17 12:09 IMPRESSION: No evidence for pulmonary embolic disease. Ground-glass opacities right greater than left as noted above most consistent with pulmonary edema although I cannot exclude superimposed pneumonic infiltrates. No pleural effusions are identified. Other findings as noted above Abdomen/Pelvis CT 06/18/17 14:46 IMPRESSION: NO SIGNIFICANT OR ACUTE PROCESS IN THE ABDOMEN OR PELVIS. INCIDENTAL CORTICAL CYST IN THE LEFT KIDNEY. Head CT 06/18/17 14:46 IMPRESSION: NORMAL BRAIN CT WITHOUT CONTRAST. EVIDENCE OF ACUTE STROKE: NO. Assessment & Plan - Diagnosis (1) Diabetes mellitus type 2 in obese Is this a current diagnosis for this admission?: Yes Plan: Blood sugars have improved since adding Lantus 18 units daily. Continue to monitor. (2) Hypertension Qualifiers: Hypertension type: essential hypertension Qualified Code(s): I10 - Essential (primary) hypertension Is this a current diagnosis for this admission?: Yes Plan: Poorly controlled. Some improvement after increasing amlodipine and lisinopril yesterday. Seems that he has been on a diuretic in the past. I will start him back on chlorthalidone 25 mg daily. In addition, his blood pressure should improve following administration of Bumex 1 mg IV today. (3) Syncope Qualifiers: Syncope type: unspecified Qualified Code(s): R55 - Syncope and collapse Is this a current diagnosis for this admission?: Yes Plan: Echo showed a very small residual membranous VSD. His LVEF is mildly reduced at 45-50%. He has grade 2-4 mild to moderate diastolic dysfunction. He also has moderate concentric LVH. RVSP was 40-50 mmHg. Continue telemetry. Urine drug screen was negative yesterday. Troponin was normal. ? etiology. (4) Diastolic CHF Qualifiers: Congestive heart failure chronicity: chronic Qualified Code(s): I50.32 - Chronic diastolic (congestive) heart failure Is this a current diagnosis for this admission?: Yes Plan: His echo showed a decrease in his LVEF to 45-50%. He still has mild to moderate diastolic dysfunction. He reports having an allergy to furosemide. However, he has receiveed in the past. He has also received Bumex with good results. I will give him Bumex 1 mg IV today, and reassess daily. (5) Pulmonary hypertension Is this a current diagnosis for this admission?: Yes Plan: Based on echocardiogram. Continue to monitor. - Time Time Spent with patient: 25-34 minutes Medications reviewed and adjusted accordingly: Yes Anticipated discharge: Home
[2017-06-20] MEDS ORDERED: CHLORTHALIDONE 25 MG TABLET PO ONE (12:30)
[2017-06-20] MEDS ORDERED: BUMETANIDE INJ/PF 1 MG/4 ML SDV IV ONE (12:30)
[2017-06-20] MEDS: INSULIN LISPRO 100 UNIT/ML 3 ML VIAL SUBCUT PRN ×3 (12:54→21:32)
[2017-06-20] MEDS ORDERED: POTASSIUM CHLORIDE 10 MEQ TABLET.SA PO ONE (13:00)
[2017-06-20] MEDS: ATORVASTATIN CALCIUM 40 MG TABLET PO SCH (17:43)
[2017-06-20] MEDS: LEVOFLOXACIN 750 MG/D5W RTU 750 MG/150 ML RTUPB IV SCH (17:44)
[2017-06-20] MEDS: SENNOSIDES/DOCUSATE 8.6-50 MG 1 EACH TABLET PO SCH (21:29)
[2017-06-21] MEDS: OXYCODONE-ACETAMINOPHEN 5-325 MG TABLET PO PRN (00:49)
[2017-06-21] MEDS: METOPROLOL SUCCINATE 50 MG TAB.SR.24H PO SCH (05:44)
[2017-06-21 05:54] LABS: ANION GAP 10 (5-19); BLOOD UREA NITROGEN 15 mg/dL (7-20); CALCIUM 8.6 mg/dL (8.4-10.2); CARBON DIOXIDE 25 mmol/L (22-30); CHLORIDE 102 mmol/L (98-107); GLUCOSE 164 mg/dL (75-110); MAGNESIUM 1.9 mg/dL (1.6-2.3); SODIUM 137.2 mmol/L (137-145)
[2017-06-21] MEDS: LEVALBUTEROL HCL NEB 0.63 MG/3 ML AMPUL NEB SCH (08:19)
[2017-06-21] MEDS ORDERED: BUMETANIDE INJ/PF 1 MG/4 ML SDV IV SCH (10:00)
[2017-06-21] MEDS ORDERED: CHLORTHALIDONE 25 MG TABLET PO SCH (10:00)
[2017-06-21] MEDS ORDERED: POTASSIUM CHLORIDE 10 MEQ TABLET.SA PO SCH (10:00)
[2017-06-21 10:02] VITALS: BP 156/104
--- NOTE | 2017-06-21 10:45 | PDOC DISCHARGE SUMMARY ---
General - Admit/Disc Date/PCP Admission Date/Primary Care Provider: 06/18/17 16:27 Discharge Date: 06/21/17 - Discharge Diagnosis (1) Acute on chronic combined systolic (congestive) and diastolic (congestive) heart failure Is this a current diagnosis for this admission?: Yes (2) Diabetes mellitus type 2 in obese Is this a current diagnosis for this admission?: Yes (3) Syncope Is this a current diagnosis for this admission?: Yes (4) Uncontrolled hypertension Is this a current diagnosis for this admission?: Yes (5) Pneumonia Is this a current diagnosis for this admission?: Yes (6) Pulmonary hypertension Is this a current diagnosis for this admission?: Yes (7) Plaque psoriasis Is this a current diagnosis for this admission?: Yes - Additional Information Discharge Diet: Cardiac Discharge Activity: Activity As Tolerated Prescriptions: Oxycodone HCl/Acetaminophen [Percocet 5-325 mg Tablet] 1 tab PO Q6HP PRN 5 Days #20 tablet PRN Reason: Albuterol Sulfate [Ventolin Hfa] 1 - 2 puff IH Q4 PRN #1 hfa.aer.ad PRN Reason: Amlodipine Besylate [Norvasc 10 mg Tablet] 10 mg PO DAILY 30 Days #30 tablet Aspirin [Adult Aspirin Regimen] 81 mg PO DAILY 30 Days #30 tablet. Atorvastatin Calcium [Lipitor 40 mg Tablet] 40 mg PO QPM 30 Days #30 tablet Bumetanide [Bumex 2 mg Tablet] 2 mg PO DAILY 30 Days #30 tablet Clobetasol Propionate [Temovate 0.05% Cream 15 gm] 1 applic TP BIDP #60 gm Insulin Glargine,Hum.rec.anlog [Lantus Insulin 100 Unit/mL] 18 unit SUBCUT DAILY #1 insuln.pen Levofloxacin [Levaquin 500 mg Tablet] 500 mg PO DAILY 5 Days #5 tablet Lisinopril [Prinivil 40 mg Tablet] 40 mg PO DAILY 30 Days #30 tablet Metformin HCl [Glucophage 500 mg Tablet] 500 mg PO BIDBS 30 Days #60 tablet Methotrexate Sodium [Methotrexate] 10 mg PO Q7D 30 Days #16 tablet Metoprolol Succinate [Toprol Xl 50 mg Tab.sr] 50 mg PO Q12 30 Days #30 tab.sr.24h Home Medications: Albuterol Sulfate [Ventolin Hfa] 1 - 2 puff IH Q4 PRN #1 hfa.aer.ad 06/21/17 Amlodipine Besylate [Norvasc 10 mg Tablet] 10 mg PO DAILY 30 Days #30 tablet Aspirin [Adult Aspirin Regimen] 81 mg PO DAILY 30 Days #30 tablet. 06/21/17 Atorvastatin Calcium [Lipitor 40 mg Tablet] 40 mg PO QPM 30 Days #30 tablet Bumetanide [Bumex 2 mg Tablet] 2 mg PO DAILY 30 Days #30 tablet 06/21/17 Clobetasol Propionate [Temovate 0.05% Cream 15 gm] 1 applic TP BIDP #60 gm 06/21 Insulin Glargine,Hum.rec.anlog [Lantus Insulin 100 Unit/mL] 18 unit SUBCUT DAILY #1 insuln.pen 06/21/17 Levofloxacin [Levaquin 500 mg Tablet] 500 mg PO DAILY 5 Days #5 tablet 06/21/17 Lisinopril [Prinivil 40 mg Tablet] 40 mg PO DAILY 30 Days #30 tablet 06/21/17 Metformin HCl [Glucophage 500 mg Tablet] 500 mg PO BIDBS 30 Days #60 tablet Methotrexate Sodium [Methotrexate] 10 mg PO Q7D 30 Days #16 tablet 06/21/17 Metoprolol Succinate [Toprol Xl 50 mg Tab.sr] 50 mg PO Q12 30 Days #30 tab.sr.24h 06/21/17 Oxycodone HCl/Acetaminophen [Percocet 5-325 mg Tablet] 1 tab PO Q6HP PRN 5 Days #20 tablet 06/21/17 History of Present Illness History of Present Illness: SHARON JERONIMO is a 46 year old male with hypertension who presented to the hospital with cough, shortness of breath, and pleuritic chest pain for several days. He also reportedly had a witnessed syncopal episode by family members visiting him from out of town. He reportedly fell to the floor and was unresponsive for about 30 minutes. Hospital Course Hospital Course: His initial workup included a head CT. It was essentially normal. No acute findings were noted. CT chest and abdomen showed no evidence of pulmonary embolic disease. He had groundglass opacities in both lung bases, right greater than left. They were more consistent with pulmonary edema although superimposed pneumonia could not be excluded. No pleural effusions were identified. There were no significant or acute abnormalities in the abdomen or pelvis. His diabetes hypertension were uncontrolled. He was started on empiric antibiotics, neb treatments, and supplemental oxygen. Blood and sputum cultures were obtained. There were negative at the time of discharge. Insulin was used for diabetes management. He was started on his usual antihypertensive medications. He was also started on laxatives, as he complained of constipation. Given his history of valvular heart disease, an echocardiogram was obtained. His EF was 45-50%. He had grade 2/4 diastolic dysfunction. His RVSP was elevated at 40-50 mmHg. It was not until he received Bumex 1 mg IV, that he started to feel better. In retrospect, he probably had an acute exacerbation of heart failure, instead of pneumonia. His hospital stay was uneventful. Physical Exam Vital Signs: Temp Pulse Resp BP Pulse Ox 98.5 F 74 16 141/104 H 100 06/21/17 07:09 06/21/17 08:18 06/21/17 08:18 06/21/17 07:09 06/21/17 08:18 Pulse Oximeter Continuous Start: 06/18/17 16: 18 Freq: RTQ4 Status: Active Document 06/21/17 08:18 [facility] [place]Rec: 06/21/17 08:38 [facility] [email or web address][place] Pulse Oximetry Assessment Oxygen Saturation (92-100) 100 Oxygen Delivery Method Room Air Fraction of Inspired Oxygen (FIO2) 21 Equipment Usage Equipment Discontinued Continuous SpO2 Machine # 2 Intake & Output 06/20/17 06/21/17 06/22/17 06:59 06:59 06:59 Intake Total 2890 3044 Output Total 700 3630 Balance 2190 -586 Weight 136.5 kg 135.2 kg General appearance: PRESENT: no acute distress, well-developed, well-nourished Head exam: PRESENT: atraumatic, normocephalic Eye exam: PRESENT: conjunctiva pink, EOMI, PERRLA. ABSENT: scleral icterus Neck exam: ABSENT: JVD Respiratory exam: PRESENT: clear to auscultation bernardo. ABSENT: rales, rhonchi, wheezes Cardiovascular exam: PRESENT: RRR. ABSENT: diastolic murmur, rubs, systolic murmur Extremities exam: PRESENT: full ROM. ABSENT: calf tenderness, clubbing, pedal edema Neurological exam: PRESENT: alert, awake, oriented to person, oriented to place , oriented to time, oriented to situation, CN II-XII grossly intact. ABSENT: motor sensory deficit Psychiatric exam: PRESENT: appropriate affect, normal mood. ABSENT: homicidal ideation, suicidal ideation Skin exam: PRESENT: other - Psoriatic plaques on the extremities and trunk Results Laboratory Results: 06/20/17 04:19 06/21/17 04:16 06/21/17 04:16 Sodium 137.2 Potassium 4.0 Chloride 102 Carbon Dioxide 25 Anion Gap 10 BUN 15 Creatinine 1.03 Est GFR ( Amer) > 60 Est GFR (Non-Af Amer) > 60 Glucose 164 H Calcium 8.6 Magnesium 1.9 06/19/17 06/19/17 04:50 15:20 Troponin I < 0.012 NT-Pro-B Natriuret Pep 3440 H Impressions: Chest/Abdomen CTA 06/18/17 12:09 IMPRESSION: No evidence for pulmonary embolic disease. Ground-glass opacities right greater than left as noted above most consistent with pulmonary edema although I cannot exclude superimposed pneumonic infiltrates. No pleural effusions are identified. Other findings as noted above Abdomen/Pelvis CT 06/18/17 14:46 IMPRESSION: NO SIGNIFICANT OR ACUTE PROCESS IN THE ABDOMEN OR PELVIS. INCIDENTAL CORTICAL CYST IN THE LEFT KIDNEY. Head CT 06/18/17 14:46 IMPRESSION: NORMAL BRAIN CT WITHOUT CONTRAST. EVIDENCE OF ACUTE STROKE: NO. Qualifiers PATEINT BEING DISCHARGED WITH ANY OF THE FOLLOWING DIAGNOSIS?: Heart Failure Reason(s) for not prescribing Overlap Therapy:: Procedure not indicated HF Pt discharged on evidence-based Beta Brandyn:: Yes
== END 2017-06-21 10:10 | disposition home or self-care (01) | DRG 291 ==
LOC: ER 11:38 → EH 16:27 → 4N 18:34
PROVIDERS: ADMIT Pediatrics; ATTEND Pediatrics
DX: I11.0 Hypertensive heart disease with heart failure (principal); J18.1 Lobar pneumonia, unspecified organism; I38 Endocarditis, valve unspecified; I69.354 Hemiplegia and hemiparesis following cerebral infarction affecting left non-dominant side; I50.33 Acute on chronic diastolic (congestive) heart failure; I27.20 Pulmonary hypertension, unspecified; I25.10 Atherosclerotic heart disease of native coronary artery without angina pectoris; E78.5 Hyperlipidemia, unspecified; E11.9 Type 2 diabetes mellitus without complications; K21.9 Gastro-esophageal reflux disease without esophagitis; R55 Syncope and collapse; L40.0 Psoriasis vulgaris; M19.90 Unspecified osteoarthritis, unspecified site; K59.00 Constipation, unspecified; I25.2 Old myocardial infarction; Z95.5 Presence of coronary angioplasty implant and graft; Z86.718 Personal history of other venous thrombosis and embolism; Z79.82 Long term (current) use of aspirin; Z79.899 Other long term (current) drug therapy; Z79.4 Long term (current) use of insulin; Z79.51 Long term (current) use of inhaled steroids
CPT/HCPCS: 36415; 70450; 71275; 74176; 80048; 80053; 80307; 81001; 82962; 83036; 83735; 83880; 84100; 84484; 85025; 85027; 87040; 87070; 87205; 87804; 93005; 93010; 93306; 94640; 94667; 94762; 94799; 96365; 96375; 99284; J0696; J1200; J1650; J1815; J1956; J2930; J3490; J7030; J7614; S0028

== ENCOUNTER 2017-07-03 21:54 | Emergency (ER) | payer MEDICARE ==
--- NOTE | 2017-07-03 23:27 | ER Document Report ---
ED Medical Screen (RME) - General Chief Complaint: High Blood Pressure Stated Complaint: DIFFICULTY BREATHING,HIGH BLOOD PRESSURE Time Seen by Provider: 07/03/17 23:20 Notes: Patient is a 40 breath and cough over the past few days got worse today. Patient states that he was recently discharged here on June 21 for pneumonia. He states he took all of his antibiotics with still having a dry cough but it got worse over the past 3 days. Does admit to a history of coronary artery disease with stents, congestive heart failure. Patient denies any recent weight gain but admits to swelling in his ankles. States that he cannot lay flat, dyspnea on exertion and orthopnea. Patient denies any chest pain at this time. I have greeted and performed a rapid initial assessment of this patient. A comprehensive ED assessment and evaluation of the patient, analysis of test results and completion of the medical decision making process will be conducted by additional ED providers. TRAVEL OUTSIDE OF THE [place] IN LAST 30 DAYS: No COUNTRY TRAVELED TO/FROM: [place] - Related Data Allergies/Adverse Reactions: iodine [Iodine] Allergy (Severe, Verified 06/18/17 11:39) SWELLING Shellfish * [Shellfish] Allergy (Severe, Verified 06/18/17 11:39) Anaphylaxis morphine [Morphine] Allergy (Mild, Verified 06/18/17 11:39) diazepam [From Valium] Allergy (Verified 06/18/17 11:39) furosemide [From Lasix] Allergy (Verified 06/18/17 11:39) Past Medical History - Social History Frequency of alcohol use: None Drug Abuse: None Family history: CAD - Past Medical History Cardiac Medical History: Reports: Hx Coronary Artery Disease, Hx DVT - right leg., Hx Heart Attack, Hx Hypercholesterolemia, Hx Hypertension, Hx Heart Murmur Pulmonary Medical History: Denies: Hx Asthma, Hx COPD, Hx Tuberculosis Neurological Medical History: Reports: Hx Cerebrovascular Accident - Lt sided weakness, Hx Seizures Endocrine Medical History: Reports: Hx Diabetes Mellitus Type 1, Hx Diabetes Mellitus Type 2. Denies: Hx Hyperthyroidism, Hx Hypothyroidism Renal/ Medical History: Reports: Hx Kidney Stones. Denies: Hx Peritoneal Dialysis GI Medical History: Reports: Hx Gastroesophageal Reflux Disease. Denies: Hx Cirrhosis, Hx Hepatitis Musculoskeltal Medical History: Reports Hx Arthritis, Reports Hx Muscle Weakness - Left Skin Medical History: Reports Hx Eczema, Denies Hx MRSA, Reports Hx Psoriasis Psychiatric Medical History: Denies: Hx Depression, Hx Schizoaffective Disorder Infectious Medical History: Denies: Hx Hepatitis, Hx MRSA Past Surgical History: Reports: Hx Cardiac Catheterization, Hx Cardiac Surgery - VSD having four previous surgeries as a child; heart valve defect, Hx Open Heart Surgery - VSD having four previous surgeries as a child; heart valve defect, Hx Vascular Surgery - Stents in right leg, Other - 4 separate operations for ventricular septal defect as a child.. Denies: Hx Pacemaker - Immunizations Immunizations up to date: Yes Hx Diphtheria, Pertussis, Tetanus Vaccination: Yes History of Influenza Vaccine for 03/2017 - 08/2017 Season: Yes Influenza Administration Date for 03/2017 - 08/2017 Season: 05/10/17 Physical Exam - Vital signs Vitals: Temp Pulse Resp BP Pulse Ox 98.6 F 89 22 H 183/117 H 98 07/03/17 22:00 07/03/17 22:00 07/03/17 22:00 07/03/17 22:00 07/03/17 22:00 - Notes Notes: PHYSICAL EXAM GENERAL: Alert, interacts well. LUNGS: Decreased air movement bilaterally with patient chronically coughing no respiratory distress. HEART: Regular rate and rhythm. No murmurs, gallops, or rubs. ABDOMEN: Soft, nondistended, nontender. No guarding, rebound, or rigidity.. Bowel sounds present in all 4 quadrants. EXTREMITIES: Moves all 4 extremities spontaneously. No 1+ pitting edema, radial and dorsalis pedis pulses 2/4 bilaterally. No cyanosis. NEUROLOGICAL: Alert and oriented x4. Normal speech. PSYCH: Normal affect, normal mood. SKIN: Warm, dry, normal turgor. No rashes or lesions noted. Course - Vital Signs Vital signs: Temp Pulse Resp BP Pulse Ox 98.6 F 89 22 H 183/117 H 98 07/03/17 22:00 07/03/17 22:00 07/03/17 22:00 07/03/17 22:00 07/03/17 22:00
--- NOTE | 2017-07-04 00:17 | RADIOLOGY REPORT (SQ) ---
EXAM DESCRIPTION: CHEST PA/LAT CLINICAL HISTORY: cough, shortness of breath COMPARISON: 05/13/2017 FINDINGS: Frontal and lateral views of the chest. Prior median sternotomy. Tortuosity of thoracic aorta. Cardiomegaly. Pulmonary vascular congestion without definite interstitial edema. No consolidation, pneumothorax, or pleural effusion. No displaced rib fractures identified. Upper abdominal soft tissues are unremarkable. IMPRESSION: 1. Cardiomegaly with coronary vascular congestion.
[2017-07-04 00:26] LABS: ABSOLUTE BASOPHILS # (AUTO) 0.1 10^3/uL (0.0-0.2); ABSOLUTE EOSINOPHILS # (AUTO) 0.1 10^3/uL (0.0-0.6); ABSOLUTE LYMPHOCYTES (AUTO) 1.5 10^3/uL (0.5-4.7); ABSOLUTE MONOCYTES (AUTO) 0.4 10^3/uL (0.1-1.4); EOSINOPHILS % (AUTO) 1.5 % (0-6); HEMATOCRIT 39.2 % (37.9-51.0); HEMOGLOBIN 12.9 g/dL (13.5-17.0); LYMPHOCYTES % (AUTO) 24.6 % (13-45); MEAN CORPUSCULAR HEMOGLOBIN 27.7 pg (27.0-33.4); MEAN CORPUSCULAR HGB CONC 32.9 g/dL (32.0-36.0); MEAN CORPUSCULAR VOLUME 84 fl (80-97); MONOCYTES % (AUTO) 6.1 % (3-13); PLATELET COUNT 265 10^3/uL (150-450); RED BLOOD COUNT 4.65 10^6/uL (4.35-5.55); RED CELL DISTRIBUTION WIDTH 15.4 % (11.5-14.0); SEGMENTED NEUTROPHILS % (AUTO) 66.8 % (42-78); TOTAL CELLS COUNTED % (AUTO) 100 %
[2017-07-04 00:44] LABS: ALANINE AMINOTRANSFERASE 30 U/L (21-72); ALBUMIN 3.7 g/dL (3.5-5.0); ALKALINE PHOSPHATASE 83 U/L (38-126); ANION GAP 9 (5-19); ASPARTATE AMINO TRANSFERASE 19 U/L (17-59); BILIRUBIN,DIRECT 0.2 mg/dL (0.0-0.4); BILIRUBIN,TOTAL 0.5 mg/dL (0.2-1.3); BLOOD UREA NITROGEN 15 mg/dL (7-20); CALCIUM 9.5 mg/dL (8.4-10.2); CARBON DIOXIDE 27 mmol/L (22-30); CHLORIDE 100 mmol/L (98-107); CREATINE KINASE 100 U/L (55-170); GLUCOSE 205 mg/dL (75-110); POTASSIUM 3.8 mmol/L (3.6-5.0); SODIUM 136.4 mmol/L (137-145)
[2017-07-04 00:56] LABS: CREATINE KINASE MB 0.66 ng/mL (<4.55); TROPONIN I 0.021 ng/mL
[2017-07-04] MEDS ORDERED: BUMETANIDE INJ/PF 1 MG/4 ML SDV IV ONE (06:04)
--- NOTE | 2017-07-04 06:13 | ER Document Report ---
ED Respiratory Problem - General Chief Complaint: High Blood Pressure Stated Complaint: DIFFICULTY BREATHING,HIGH BLOOD PRESSURE Time Seen by Provider: 07/03/17 23:20 Notes: The patient is a 46-year-old male, past medical history CHF, hypertension, DM, CAD w/ stents, presents with increased dry coughing and right lower back pain for a day. He recently was diagnosed with pneumonia and finished his course of antibiotics yesterday. Patient was discharged from the hospital, but did not fill his blood pressure or Bumex scripts, but they are waiting for him at the pharmacy. Patient is also having mild increased swelling around his ankles. He denies fevers, nausea, vomiting, back pain, chest pain, change in bowel or bladder, saddle anesthesia, history of IVDA, sputum or hemoptysis. TRAVEL OUTSIDE OF THE [place] IN LAST 30 DAYS: No COUNTRY TRAVELED TO/FROM: [place] - Related Data Allergies/Adverse Reactions: iodine [Iodine] Allergy (Severe, Verified 06/18/17 11:39) SWELLING Shellfish * [Shellfish] Allergy (Severe, Verified 06/18/17 11:39) Anaphylaxis morphine [Morphine] Allergy (Mild, Verified 06/18/17 11:39) diazepam [From Valium] Allergy (Verified 06/18/17 11:39) furosemide [From Lasix] Allergy (Verified 06/18/17 11:39) Past Medical History - General Information source: Patient - Social History Smoking Status: Never Smoker Frequency of alcohol use: None Drug Abuse: None Family History: Reviewed & Not Pertinent, Arthritis, CAD, CVA, DM, Hyperlipidemia, Hypertension, Malignancy, Other Patient has suicidal ideation: No Patient has homicidal ideation: No - Past Medical History Cardiac Medical History: Reports: Hx Coronary Artery Disease, Hx DVT - right leg., Hx Heart Attack, Hx Hypercholesterolemia, Hx Hypertension, Hx Heart Murmur Pulmonary Medical History: Denies: Hx Asthma, Hx COPD, Hx Tuberculosis Neurological Medical History: Reports: Hx Cerebrovascular Accident - Lt sided weakness, Hx Seizures Endocrine Medical History: Reports: Hx Diabetes Mellitus Type 1, Hx Diabetes Mellitus Type 2. Denies: Hx Hyperthyroidism, Hx Hypothyroidism Renal/ Medical History: Reports: Hx Kidney Stones. Denies: Hx Peritoneal Dialysis GI Medical History: Reports: Hx Gastroesophageal Reflux Disease. Denies: Hx Cirrhosis, Hx Hepatitis Musculoskeltal Medical History: Reports Hx Arthritis, Reports Hx Muscle Weakness - Left Skin Medical History: Reports Hx Eczema, Denies Hx MRSA, Reports Hx Psoriasis Psychiatric Medical History: Denies: Hx Depression, Hx Schizoaffective Disorder Infectious Medical History: Denies: Hx Hepatitis, Hx MRSA Past Surgical History: Reports: Hx Cardiac Catheterization, Hx Cardiac Surgery - VSD having four previous surgeries as a child; heart valve defect, Hx Open Heart Surgery - VSD having four previous surgeries as a child; heart valve defect, Hx Vascular Surgery - Stents in right leg, Other - 4 separate operations for ventricular septal defect as a child.. Denies: Hx Pacemaker - Immunizations Immunizations up to date: Yes Hx Diphtheria, Pertussis, Tetanus Vaccination: Yes Hx Pneumococcal Vaccination: 03/24/13 Review of Systems - Review of Systems Notes: REVIEW OF SYSTEMS: CONSTITUTIONAL: -fevers, -chills EENT: -eye pain, -difficulty swallowing, -nasal congestion CARDIOVASCULAR: -chest pain, -syncope. RESPIRATORY: +cough, +SOB GASTROINTESTINAL: -abdominal pain, -nausea, -vomiting, -diarrhea GENITOURINARY: -dysuria, -hematuria MUSCULOSKELETAL: +back pain, -neck pain SKIN: -rash or skin lesions. HEMATOLOGIC: -easy bruising or bleeding. LYMPHATIC: -swollen, enlarged glands. NEUROLOGICAL: -altered mental status or loss of consciousness, -headache, - neurologic symptoms PSYCHIATRIC: -anxiety, -depression. ALL OTHER SYSTEMS REVIEWED AND NEGATIVE. Physical Exam - Vital signs Vitals: Temp Pulse Resp BP Pulse Ox 98.6 F 89 22 H 183/117 H 98 07/03/17 22:00 07/03/17 22:00 07/03/17 22:00 07/03/17 22:00 07/03/17 22:00 - Notes Notes: PHYSICAL EXAMINATION: GENERAL: Well-appearing, well-nourished and in no acute distress. HEAD: Atraumatic, normocephalic. EYES: Pupils equal round and reactive to light, extraocular movements intact, sclera anicteric, conjunctiva are normal. ENT: nares patent, oropharynx clear without exudates. Moist mucous membranes. NECK: Normal range of motion, supple without lymphadenopathy LUNGS: No respiratory distress. Mild rales at bases. HEART: Regular rate and rhythm without murmurs ABDOMEN: Soft, nontender, normoactive bowel sounds. No guarding, no rebound. No masses appreciated. EXTREMITIES: 1+pitting edema around ankles. Normal range of motion. No cyanosis. NEUROLOGICAL: Cranial nerves grossly intact. Normal speech, normal gait. Normal sensory and motor exams. PSYCH: Normal mood, normal affect. SKIN: Warm, Dry, normal turgor, no rashes or lesions noted. Course - Re-evaluation Re-evalutation: Patient appears very well and is in no respiratory distress. He is not hypoxic and his chest x-ray shows mild pulmonary vascular congestion and cardiomegaly. He has not taken his Bumex or hypertensive medications since [facility]. Patient provided a dose of IV Bumex and his morning blood pressure medications with improvement of his dyspnea. He was ambulated and was still not hypoxic. He appears safe for discharge. His blood pressure medications and Bumex are waiting for him at the pharmacy. Instructed him to go immediately to the pharmacy to pick these up and to eat a low-salt diet. Given very strict return precautions and he understands. - Vital Signs Vital signs: Temp Pulse Resp BP Pulse Ox 98.6 F 89 20 153/97 H 97 07/03/17 22:00 07/03/17 22:00 07/04/17 07:01 07/04/17 07:01 07/04/17 05:06 - Laboratory Result Diagrams: 07/04/17 00:22 07/04/17 00:03 Laboratory results interpreted by me: 07/03/17 07/04/17 07/04/17 23:19 00:03 00:03 Hgb RDW Sodium 136.4 L Glucose 205 H POC Glucose 211 H NT-Pro-B Natriuret Pep 1350 H 07/04/17 00:22 Hgb 12.9 L RDW 15.4 H Sodium Glucose POC Glucose NT-Pro-B Natriuret Pep - Diagnostic Test Radiology reviewed: Image reviewed, Reports reviewed Radiology results interpreted by me: CXR: Cardiomegaly. Pulmonary vascular congestion. - EKG Interpretation by Me EKG shows normal: Sinus rhythm, [place], Intervals, QRS Complexes, ST-T Waves Rate: Normal When compared to previous EKG there are: No significant change Additional EKG results interpreted by me: Chronic T-wave changes in lateral leads. Discharge - Discharge Clinical Impression: Pulmonary vascular congestion Condition: Stable Disposition: HOME, SELF-CARE Additional Instructions: Try to eat a low-salt diet and always take your blood pressure medication and Bumex to help reduce the fluid on your lungs. If you have worsening symptoms, return immediately to the emergency room for further evaluation and treatment. Congestive Heart Failure You have been diagnosed as having congestive heart failure (CHF). CHF occurs when the heart is unable to pump blood efficiently, leading to fluid buildup in the veins and lungs. Typical symptoms are swelling of the legs, shortness of breath on minor exertion, and fatigue. CHF is treated with salt restriction, medicine to eliminate excess water and salt from the body, and medication to help the heart contract more efficiently. Eliminate added salt and salty foods in your diet. Decrease your activity until excess fluid has been eliminated. It will also be helpful to raise the head of your bed so you can sleep more easily. Keep a daily record of your weight. This will help your physician monitor your progress. Once extra water has been eliminated, light aerobic exercise daily -- such as walking -- will be helpful (unless your physician has told you to restrict activity for other reasons). Be sure to follow up with the physician as instructed. Contact the doctor at once if you worsen in any way. Forms: Elevated Blood Pressure
[2017-07-04] MEDS ORDERED: METOPROLOL TARTRATE 50 MG TABLET PO ONE (06:32)
[2017-07-04] MEDS ORDERED: LISINOPRIL 10 MG TABLET PO ONE (06:32)
[2017-07-04] MEDS ORDERED: AMLODIPINE BESYLATE 10 MG TABLET PO ONE (06:32)
--- NOTE | 2017-07-04 07:59 | EKG REPORT ---
SEVERITY:- ABNORMAL ECG - SINUS RHYTHM VENTRICULAR PREMATURE COMPLEX PROBABLE LEFT ATRIAL ABNORMALITY LEFT ANTERIOR FASCICULAR BLOCK NONSPECIFIC T ABNORMALITIES, LATERAL LEADS BORDERLINE PROLONGED QT INTERVAL : Confirmed by: Yoseph Yu MD 04-Jul-2017 07:58:59
[2017-07-04 08:34] VITALS: BP 153/94
== END 2017-07-04 08:37 | disposition home or self-care (01) ==
LOC: ER 21:54
DX: I11.0 Hypertensive heart disease with heart failure (principal); I50.9 Heart failure, unspecified; T50.1X6A Underdosing of loop [high-ceiling] diuretics, initial encounter; T46.1X6A Underdosing of calcium-channel blockers, initial encounter; T46.4X6A Underdosing of angiotensin-converting-enzyme inhibitors, initial encounter; T44.7X6A Underdosing of beta-adrenoreceptor antagonists, initial encounter; Z91.14 Patient's other noncompliance with medication regimen; R09.89 Other specified symptoms and signs involving the circulatory and respiratory systems; R05 Cough; M54.5 Low back pain; R06.02 Shortness of breath; I25.10 Atherosclerotic heart disease of native coronary artery without angina pectoris; I25.2 Old myocardial infarction; Z86.718 Personal history of other venous thrombosis and embolism; Z95.5 Presence of coronary angioplasty implant and graft; Z87.01 Personal history of pneumonia (recurrent); Z88.5 Allergy status to narcotic agent; Z88.8 Allergy status to other drugs, medicaments and biological substances; Z87.892 Personal history of anaphylaxis; Z91.013 Allergy to seafood
CPT/HCPCS: 93005; 99285; 96374; 36415; 82553; 82962; 82550; 85025; 80053; 84484; 83880; 71046; 93010; J3490; A9270 ×3

== ENCOUNTER 2017-07-20 18:49 | Emergency (ER) | payer MEDICARE ==
[2017-07-20] MEDS ORDERED: FENTANYL CITRATE INJ/PF 100 MCG/2 ML AMPUL IV PRN (20:49)
[2017-07-20] MEDS ORDERED: LIDOCAINE 5% (700 MG) TRANSDERMAL ADH..PATCH TP ONE (20:50)
[2017-07-20] MEDS ORDERED: HYDROMORPHONE HCL INJ/PF 2 MG/ML AMPULE IM ONE (20:56)
--- NOTE | 2017-07-20 20:56 | ER Document Report ---
ED General - General Chief Complaint: Abdominal Pain Stated Complaint: RIGHT SIDE ABDOMINAL PAIN Time Seen by Provider: 07/20/17 20:05 Notes: Patient is a 46 year old male with a past medical history of diabetes, hypertension, chronic pain with associated daily oxycodone use who presents after having an episode of syncope 2 days ago landing on his right side. He states that since that time he has had a severe, constant, throbbing pain to the right lower ribs and right upper quadrant of his abdomen. Movement worsens the pain. Nothing improves the pain. He denies a history of similar injuries in the past. Regarding his syncope states that he was standing, became lightheaded, diaphoretic and then syncopized. States this feels very similar to when he was evaluated in the hospital towards the end of May. He denies any recurrent syncope since that time. He denies any chest pain, shortness of breath, focal weakness or numbness. No head trauma. He has not seen his primary care doctor regarding today's concerns. TRAVEL OUTSIDE OF THE [place] IN LAST 30 DAYS: No COUNTRY TRAVELED TO/FROM: [place] - Related Data Allergies/Adverse Reactions: iodine [Iodine] Allergy (Severe, Verified 06/18/17 11:39) SWELLING Shellfish * [Shellfish] Allergy (Severe, Verified 06/18/17 11:39) Anaphylaxis morphine [Morphine] Allergy (Mild, Verified 06/18/17 11:39) diazepam [From Valium] Allergy (Verified 06/18/17 11:39) furosemide [From Lasix] Allergy (Verified 06/18/17 11:39) Past Medical History - General Information source: Patient - Social History Smoking Status: Never Smoker Chew tobacco use (# tins/day): No Frequency of alcohol use: None Drug Abuse: None Lives with: Spouse/Significant other Family History: Reviewed & Not Pertinent, Arthritis, CAD, CVA, DM, Hyperlipidemia, Hypertension, Malignancy, Other Patient has suicidal ideation: No Patient has homicidal ideation: No - Past Medical History Cardiac Medical History: Reports: Hx Coronary Artery Disease, Hx DVT - right leg., Hx Heart Attack, Hx Hypercholesterolemia, Hx Hypertension, Hx Heart Murmur Pulmonary Medical History: Denies: Hx Asthma, Hx COPD, Hx Tuberculosis Neurological Medical History: Reports: Hx Cerebrovascular Accident - Lt sided weakness, Hx Seizures Endocrine Medical History: Reports: Hx Diabetes Mellitus Type 1, Hx Diabetes Mellitus Type 2. Denies: Hx Hyperthyroidism, Hx Hypothyroidism Renal/ Medical History: Reports: Hx Kidney Stones. Denies: Hx Peritoneal Dialysis GI Medical History: Reports: Hx Gastroesophageal Reflux Disease. Denies: Hx Cirrhosis, Hx Hepatitis Musculoskeltal Medical History: Reports Hx Arthritis, Reports Hx Muscle Weakness - Left Skin Medical History: Reports Hx Eczema, Denies Hx MRSA, Reports Hx Psoriasis Psychiatric Medical History: Denies: Hx Depression, Hx Schizoaffective Disorder Infectious Medical History: Denies: Hx Hepatitis, Hx MRSA Past Surgical History: Reports: Hx Cardiac Catheterization, Hx Cardiac Surgery - VSD having four previous surgeries as a child; heart valve defect, Hx Open Heart Surgery - VSD having five previous surgeries as a child; heart valve defect, Hx Vascular Surgery - Stents in right leg, Other - 4 separate operations for ventricular septal defect as a child.. Denies: Hx Pacemaker - Immunizations Immunizations up to date: Yes Hx Diphtheria, Pertussis, Tetanus Vaccination: Yes Hx Pneumococcal Vaccination: 03/24/13 Review of Systems - Review of Systems Notes: Constitutional: Negative for fever. Eyes: Negative for visual changes. ENT: Negative for facial injury Cardiovascular: Positive for chest injury. Respiratory: Negative for shortness of breath. Gastrointestinal: Positive for abdominal injury. Genitourinary: Negative for genital injury Musculoskeletal: Negative for back injury. Skin: Negative for laceration/abrasions. Neurological: Negative for head injury. Physical Exam - Vital signs Vitals: Temp Pulse Resp BP Pulse Ox 99.0 F 96 20 173/109 H 98 07/20/17 18:54 07/20/17 18:54 07/20/17 18:54 07/20/17 18:54 07/20/17 18:54 Interpretation: Normal Notes: PHYSICAL EXAMINATION: GENERAL: Appears to be in pain but no acute distress HEAD: Atraumatic, normocephalic. EYES: Pupils equal round and reactive to light, extraocular movements intact, sclera anicteric, conjunctiva are normal. ENT: nares patent, no oral pharyngeal trauma. No hemotympanum, no Pace's sign , no raccoon eyes. NECK: No midline cervical spine tenderness. Patient able to move their head to 45 bilaterally without any discomfort. LUNGS: Breath sounds clear to auscultation bilaterally and equal. No wheezes rales or rhonchi. HEART: Regular rate and rhythm without murmurs. CHEST WALL: No ecchymosis over the chest wall. Pain on palpation of the right lower ribs ABDOMEN: Soft, focal the right upper quadrant abdominal pain to palpation, otherwise no localized tenderness. Normoactive bowel sounds. No guarding, no rebound. No abdominal bruising EXTREMITIES: Normal range of motion, no pitting or edema. No long bone deformities. BACK: No midline spinal tenderness, step-offs, or deformities. NEUROLOGICAL: Face symmetric. Tongue protrudes midline. Extraocular motions intact. Pupils are 2 mm and equally reactive. Normal speech, normal gait. 5 out of 5 strength in both the distal and proximal upper and lower extremities bilaterally. Sensation is grossly intact throughout. Finger to nose testing normal. Pronator drift normal. PSYCH: Normal mood, normal affect. SKIN: Warm, Dry, normal turgor, no rashes or lesions noted. Course - Re-evaluation Re-evalutation: 07/20/17 20:51 Patient presents with 48 hours of ongoing severe right sided abdominal and chest wall pain after a mechanical fall that occurred 2 days ago. Patient states he had an episode of syncope similar to the episode of syncope that he has had in the past falling directly onto the side. He denies any injuries to any other location on the right side of his abdomen. He does have exquisite pain on palpation of the lower ribs and the right side of his abdomen but his abdominal exam is otherwise benign. Vitals without hypoxia or tachypnea. He is hypertensive similar to his baseline. He has been evaluated for syncope with an echocardiogram less than 1 month ago for similar episode at which time his ejection fraction was noted to be between 45 and 55%. Will obtain basic laboratories, EKG, and CT of the chest and abdomen as patient is exquisitely tender in the affected area and I am concerned about the possibility of an acute liver injury, pulmonary contusions, and rib fractures although again my overall clinical suspicion for all of these is quite low given his overall well appearance. 07/20/17 22:47 CT the chest abdomen pelvis is unremarkable without any evidence of acute injury. I suspect that there is a component of hyperalgesia as patient does take daily oxycodone. Repeat exam is unremarkable. Blood counts unchanged from his prior assessment and he notes that he is only had a small amount of blood when he strains to have bowel movements as he continues to be severely constipated again likely secondary to chronic opiate use and not taking any stimulants to have bowel movements. At this time will discharge with return precautions and follow-up recommendations. Verbal discharge instructions given a the bedside and opportunity for questions given. Medication warnings reviewed. Patient is in agreement with this plan and has verbalized understanding of return precautions and the need for primary care follow-up in the next 24-72 hours. - Vital Signs Vital signs: Temp Pulse Resp BP Pulse Ox 99.0 F 96 20 166/100 H 97 07/20/17 18:54 07/20/17 18:54 07/20/17 18:54 07/20/17 23:00 07/20/17 23:00 - Laboratory Result Diagrams: 07/20/17 21:20 07/20/17 20:57 Laboratory results interpreted by me: 07/20/17 07/20/17 20:57 21:20 Hgb 12.6 L Hct 37.1 L RDW 15.9 H Sodium 135.5 L Glucose 151 H - Diagnostic Test Radiology reviewed: Reports reviewed - EKG Interpretation by Me Additional EKG results interpreted by me: 07/20/17 22:47 Sinus rhythm. Left axis deviation. No ST elevations or depressions. QTC is 498. Unchanged from prior assessment Discharge - Discharge Clinical Impression: Rib injury Syncope Qualifiers: Syncope type: unspecified Qualified Code(s): R55 - Syncope and collapse Fall Qualifiers: Encounter type: initial encounter Qualified Code(s): W19.XXXA - Unspecified fall, initial encounter Condition: Stable Disposition: HOME, SELF-CARE Additional Instructions: Your chest wall pain is due to bruising of your ribs. This pain can last for up to 6 weeks. It is very important that you continue to take purposeful deep breaths. For your pain: Continue to take Tylenol 1000 mg every 6 hours. Apply local lidocaine to the area per bottle instructions. There is a product sold [id number] called "Aspercreme with lidocaine" that you can use for this purpose. Please follow-up with your primary care doctor in the next 2-3 days. Return to the emergency department immediately if you develop worsening shortness of breath, increased pain, begin coughing blood, pass out, or have any other symptoms that are worrisome to you.
[2017-07-20 21:21] LABS: ALANINE AMINOTRANSFERASE 26 U/L (21-72); ALBUMIN 3.6 g/dL (3.5-5.0); ALKALINE PHOSPHATASE 80 U/L (38-126); ANION GAP 7 (5-19); ASPARTATE AMINO TRANSFERASE 20 U/L (17-59); BILIRUBIN,DIRECT 0.2 mg/dL (0.0-0.4); BILIRUBIN,TOTAL 0.5 mg/dL (0.2-1.3); BLOOD UREA NITROGEN 15 mg/dL (7-20); CALCIUM 9.4 mg/dL (8.4-10.2); CARBON DIOXIDE 26 mmol/L (22-30); CHLORIDE 103 mmol/L (98-107); GLUCOSE 151 mg/dL (75-110); SODIUM 135.5 mmol/L (137-145); TOTAL PROTEIN 7.1 g/dL (6.3-8.2)
[2017-07-20 21:40] LABS: ABSOLUTE BASOPHILS # (AUTO) 0.1 10^3/uL (0.0-0.2); ABSOLUTE EOSINOPHILS # (AUTO) 0.1 10^3/uL (0.0-0.6); ABSOLUTE MONOCYTES (AUTO) 0.4 10^3/uL (0.1-1.4); ABSOLUTE NEUT (AUTO) 3.5 10^3/uL (1.7-8.2); BASOPHILS % (AUTO) 1.3 % (0-2); EOSINOPHILS % (AUTO) 1.9 % (0-6); HEMATOCRIT 37.1 % (37.9-51.0); HEMOGLOBIN 12.6 g/dL (13.5-17.0); LYMPHOCYTES % (AUTO) 32.7 % (13-45); MEAN CORPUSCULAR HEMOGLOBIN 28.5 pg (27.0-33.4); MEAN CORPUSCULAR HGB CONC 33.8 g/dL (32.0-36.0); MEAN CORPUSCULAR VOLUME 84 fl (80-97); MONOCYTES % (AUTO) 6.2 % (3-13); PLATELET COUNT 271 10^3/uL (150-450); RED BLOOD COUNT 4.41 10^6/uL (4.35-5.55); RED CELL DISTRIBUTION WIDTH 15.9 % (11.5-14.0); SEGMENTED NEUTROPHILS % (AUTO) 57.9 % (42-78); TOTAL CELLS COUNTED % (AUTO) 100 %; WHITE BLOOD COUNT 6.1 10^3/uL (4.0-10.5)
--- NOTE | 2017-07-20 21:59 | RADIOLOGY REPORT (SQ) ---
EXAM DESCRIPTION: CT CHEST WITH COMPLETED DATE/TIME: 07/20/2017 9:47 pm REASON FOR STUDY: fall, sob, right sided abd pain COMPARISON: CT imaging dated 06/18/2017 and 04/10/2017 TECHNIQUE: CT scan of the chest performed using helical scanning technique with dynamic intravenous contrast injection. Images reviewed with lung, soft tissue and bone windows. Reconstructed coronal and sagittal MPR images reviewed. All images stored on PACS. All CT scanners at this facility use dose modulation, iterative reconstruction, and/or weight based d osing when appropriate to reduce radiation dose to as low as reasonably achievable (ALARA). [facility]: Dose Right [facility]: CareDose [facility]: Dose Right [facility]: Teradose 4D [facility]: [employer] CONTRAST TYPE AND DOSE: contrast/concentration: Isovue 370.00 mg/ml; Total Contrast Delivered: 100.0 ml; Total Saline Delivered: 71.0 ml RENAL FUNCTION: BUN 15; creatinine 1.01 RADIATION DOSE: . LIMITATIONS: None. FINDINGS: LUNGS AND PLEURA: No opacities, nodules, masses. No pneumothorax. No effusions. HILAR AND MEDIASTINAL STRUCTURES: No identified masses or abnormal nodes. HEART AND VASCULAR STRUCTURES: Cardiomegaly. No aneurysm or dissection. No central pulmonary emboli . No pericardial effusion. HARDWARE: None in the chest. UPPER ABDOMEN: See separate report of the CT of the abdomen. THYROID AND OTHER SOFT TISSUES: No masses. No adenopathy. BONES: No significant finding. OTHER: No other significant finding. IMPRESSION: NORMAL CT OF THE CHEST WITH IV CONTRAST. TECHNICAL DOCUMENTATION: JOB ID: [id number] Quality ID # [id number]: Final reports with documentation of one or more dose reduction techniques (e.g., Au tomated exposure control, adjustment of the mA and/or kV according to patient size, use of iterative reconstruction technique) 2010 [employer]- All Rights Reserved
--- NOTE | 2017-07-20 22:04 | RADIOLOGY REPORT (SQ) ---
EXAM DESCRIPTION: CT ABD/PELVIS WITH IV ONLY COMPLETED DATE/TIME: 07/20/2017 9:47 pm REASON FOR STUDY: fall, sob, right sided abd pain COMPARISON: CT dated 06/18/2017 TECHNIQUE: CT scan of the abdomen and pelvis performed using helical scanning technique with dynamic intravenous contrast injection. No oral contrast. Images reviewed with lung, soft tissue, and bone windows. Reconstructed coronal and sagittal MPR images reviewed. Delayed images for evaluation of the urinary system also acquired. All images stored on PACS. All CT scanners at this facility use dose modulation, iterative reconstruction, and/or weight based d osing when appropriate to reduce radiation dose to as low as reasonably achievable (ALARA). [facility]: Dose Right [facility]: CareDose [facility]: Dose Right [facility]: Teradose 4D [facility]: [employer] CONTRAST TYPE AND DOSE: 100 mL Omnipaque 350- low osmolar. RENAL FUNCTION: BUN 15; creatinine 1.01 RADIATION DOSE: CT Rad equipment meets quality standard of care and radiation dose reduction techniq ues were employed. CTDIvol: 17.5 - 20.6 mGy. DLP: 2406 mGy-cm.. LIMITATIONS: None. FINDINGS: LOWER CHEST: See separate report of the CT of the chest. LIVER: Normal size. No masses. No dilated ducts. SPLEEN: Normal size. No focal lesions. PANCREAS: No masses. No significant calcifications. No adjacent inflammation or peripancreatic fluid collections. Pancreatic duct not dilated. GALLBLADDER: No identified stones by CT criteria. No inflammatory changes to suggest cholecystitis. ADRENAL GLANDS: No significant masses or asymmetry. RIGHT KIDNEY AND URETER: No solid masses. No significant calcifications. No hydronephrosis or hyd roureter. LEFT KIDNEY AND URETER: Left renal cyst. No solid masses. No significant calcifications. No hydr onephrosis or hydroureter. AORTA AND VESSELS: No aneurysm. No dissection. Renal arteries, SMA, celiac without stenosis. RETROPERITONEUM: No retroperitoneal adenopathy, hemorrhage or masses. BOWEL AND PERITONEAL CAVITY: No masses or inflammatory changes. No free fluid or peritoneal masses. APPENDIX: Normal. PELVIS: No mass. No free fluid. Normal bladder. ABDOMINAL WALL: No masses. No hernias. BONES: No significant or acute findings. OTHER: No other significant finding. IMPRESSION: NO SIGNIFICANT OR ACUTE FINDING IN THE ABDOMEN OR PELVIS ON CT SCAN WITH IV CONTRAST. TECHNICAL DOCUMENTATION: JOB ID: [id number] Quality ID # [id number]: Final reports with documentation of one or more dose reduction techniques (e.g., Au tomated exposure control, adjustment of the mA and/or kV according to patient size, use of iterative reconstruction technique) 2010 [employer]- All Rights Reserved
[2017-07-20 23:07] VITALS: BP 166/100
--- NOTE | 2017-07-21 11:56 | EKG REPORT ---
SEVERITY:- ABNORMAL ECG - SINUS RHYTHM LEFT ATRIAL ABNORMALITY LEFT AXIS DEVIATION BORDERLINE T ABNORMALITIES, LATERAL LEADS BORDERLINE PROLONGED QT INTERVAL : Confirmed by: Loyda Fernandes MD 21-Jul-2017 11:55:25
== END 2017-07-20 23:07 | disposition home or self-care (01) ==
LOC: ER 18:49
DX: S29.9XXA Unspecified injury of thorax, initial encounter (principal); S39.91XA Unspecified injury of abdomen, initial encounter; W19.XXXA Unspecified fall, initial encounter; Y93.9 Activity, unspecified; R55 Syncope and collapse; K59.00 Constipation, unspecified; I10 Essential (primary) hypertension; I25.10 Atherosclerotic heart disease of native coronary artery without angina pectoris; I25.2 Old myocardial infarction; E11.9 Type 2 diabetes mellitus without complications; G89.29 Other chronic pain; Z79.891 Long term (current) use of opiate analgesic; Z91.013 Allergy to seafood; Z88.5 Allergy status to narcotic agent; Z88.8 Allergy status to other drugs, medicaments and biological substances; Z86.718 Personal history of other venous thrombosis and embolism
CPT/HCPCS: 93005; 99284; 96372; 36415; 85025; 80053; 71260; 74177; 93010; J1170

== ENCOUNTER 2017-08-28 06:14 | Emergency (ER) | payer MEDICARE ==
--- NOTE | 2017-08-28 06:55 | ER Document Report ---
ED Medical Screen (RME) - General Chief Complaint: Edema Stated Complaint: LEG PAIN Time Seen by Provider: 08/28/17 06:50 Mode of Arrival: Ambulatory Information source: Patient TRAVEL OUTSIDE OF THE [place] IN LAST 30 DAYS: No COUNTRY TRAVELED TO/FROM: [facility] Patient complains to provider of: SWELLING Notes: 08/28/17 06:54 Patient is here with complaints of leg and abdominal swelling with exertional shortness of breath for the last few days. He has a history of congestive heart failure. States that he has been taking his medications as prescribed. Physical exam: Pitting edema to the abdomen identified. The patient is in no acute distress at this time. An initial examination was made on the patient as part of the triage process, and it was determined a more comprehensive evaluation was necessary. Initial labs were ordered and patient was transferred to another provider in the ED who assumed care and finished evaluation and plan. - Related Data Allergies/Adverse Reactions: iodine [Iodine] Allergy (Severe, Verified 06/18/17 11:39) SWELLING Shellfish * [Shellfish] Allergy (Severe, Verified 06/18/17 11:39) Anaphylaxis morphine [Morphine] Allergy (Mild, Verified 06/18/17 11:39) diazepam [From Valium] Allergy (Verified 06/18/17 11:39) furosemide [From Lasix] Allergy (Verified 06/18/17 11:39) Past Medical History - Social History Chew tobacco use (# tins/day): No Frequency of alcohol use: None Drug Abuse: None Family history: CAD - Past Medical History Cardiac Medical History: Reports: Hx Coronary Artery Disease, Hx DVT - right leg., Hx Heart Attack, Hx Hypercholesterolemia, Hx Hypertension, Hx Heart Murmur Pulmonary Medical History: Denies: Hx Asthma, Hx COPD, Hx Tuberculosis Neurological Medical History: Reports: Hx Cerebrovascular Accident - Lt sided weakness, Hx Seizures Endocrine Medical History: Reports: Hx Diabetes Mellitus Type 1, Hx Diabetes Mellitus Type 2. Denies: Hx Hyperthyroidism, Hx Hypothyroidism Renal/ Medical History: Reports: Hx Kidney Stones. Denies: Hx Peritoneal Dialysis GI Medical History: Reports: Hx Gastroesophageal Reflux Disease. Denies: Hx Cirrhosis, Hx Hepatitis Musculoskeltal Medical History: Reports Hx Arthritis, Reports Hx Muscle Weakness - Left Skin Medical History: Reports Hx Eczema, Denies Hx MRSA, Reports Hx Psoriasis Psychiatric Medical History: Denies: Hx Depression, Hx Schizoaffective Disorder Infectious Medical History: Denies: Hx Hepatitis, Hx MRSA Past Surgical History: Reports: Hx Cardiac Catheterization, Hx Cardiac Surgery - VSD having four previous surgeries as a child; heart valve defect, Hx Open Heart Surgery - VSD having five previous surgeries as a child; heart valve defect, Hx Vascular Surgery - Stents in right leg, Other - 4 separate operations for ventricular septal defect as a child.. Denies: Hx Pacemaker - Immunizations Immunizations up to date: Yes Hx Diphtheria, Pertussis, Tetanus Vaccination: Yes History of Influenza Vaccine for 03/2017 - 08/2017 Season: Yes Influenza Administration Date for 03/2017 - 08/2017 Season: 05/10/17 Physical Exam - Vital signs Vitals: Temp Pulse Resp BP Pulse Ox 99.1 F 84 16 184/104 H 95 08/28/17 06:22 08/28/17 06:22 08/28/17 06:22 08/28/17 06:22 08/28/17 06:22 Course - Vital Signs Vital signs: Temp Pulse Resp BP Pulse Ox 99.1 F 84 16 184/104 H 95 08/28/17 06:22 08/28/17 06:22 08/28/17 06:22 08/28/17 06:22 08/28/17 06:22
--- NOTE | 2017-08-28 07:18 | RADIOLOGY REPORT (SQ) ---
EXAM DESCRIPTION: CHEST SINGLE VIEW CLINICAL HISTORY: LEG AND BODY SWELLING COMPARISON: 07/03/2017 FINDINGS: Single frontal view of the chest. Tortuosity of thoracic aorta. Prior median sternotomy. Cardiomegaly. Pulmonary vascular congestion. Leads overlie the chest. No consolidation, pneumothorax, or pleural effusion. No acute osseous abnormality. Upper abdominal soft tissues are unremarkable. IMPRESSION: 1. Cardiomegaly with pulmonary vascular congestion.
[2017-08-28 07:20] LABS: HEMATOCRIT 35.7 % (37.9-51.0); MEAN CORPUSCULAR HGB CONC 33.5 g/dL (32.0-36.0); MEAN CORPUSCULAR VOLUME 83 fl (80-97); PLATELET COUNT 316 10^3/uL (150-450); RED BLOOD COUNT 4.28 10^6/uL (4.35-5.55); RED CELL DISTRIBUTION WIDTH 15.9 % (11.5-14.0); WHITE BLOOD COUNT 6.2 10^3/uL (4.0-10.5)
--- NOTE | 2017-08-28 07:26 | ER Document Report ---
ED General - General Chief Complaint: Edema Stated Complaint: LEG PAIN Time Seen by Provider: 08/28/17 06:50 Mode of Arrival: Ambulatory Information source: Patient Notes: 46 yo non smoker, no drugs, non ETOH, male c/o leg and belly swelling with difficulty breathing, exertional dyspnea, RLQ abd. pain for a few days. Abdominal pain worse at 2 am. Hx. cardiomegaly, vetricular heart defect with repair, murmur, DM, HTN, hyperlipedemic, psoriasis, CHF. Moved here from [place], no PCP here, but seen multiple times in ER and admission by hospitalists for pneumonia in may. New diuretic Bumetanide 2mg qd. metoprolol ER 50mg daily, merformin 500mg, amlodipine 5mg daily, lisinopril 10mg bid, sliding scale , methotrexate, folic acid, lipitor. (d/c ordered meds do NOT match these bottles). No vomiting or diarrhea/constipation. Allergic to lasix (sob, rash-hives). Asking for colbetasol ointment to be replaced on his body, wiped off for lead placement. Chronic right low back pain, oxycodone 10mg bid. Hx kidney stone. TRAVEL OUTSIDE OF THE [place] IN LAST 30 DAYS: No COUNTRY TRAVELED TO/FROM: [place] - Related Data Allergies/Adverse Reactions: iodine [Iodine] Allergy (Severe, Verified 06/18/17 11:39) SWELLING Shellfish * [Shellfish] Allergy (Severe, Verified 06/18/17 11:39) Anaphylaxis morphine [Morphine] Allergy (Mild, Verified 06/18/17 11:39) diazepam [From Valium] Allergy (Verified 06/18/17 11:39) furosemide [From Lasix] Allergy (Verified 06/18/17 11:39) Past Medical History - General Information source: Patient - Social History Smoking Status: Never Smoker Chew tobacco use (# tins/day): No Frequency of alcohol use: None Drug Abuse: None Lives with: Family Family History: Reviewed & Not Pertinent, Arthritis, CAD, CVA, DM, Hyperlipidemia, Hypertension, Malignancy, Other Patient has suicidal ideation: No Patient has homicidal ideation: No - Past Medical History Cardiac Medical History: Reports: Hx Congestive Heart Failure, Hx Coronary Artery Disease, Hx DVT - right leg., Hx Heart Attack, Hx Hypercholesterolemia, Hx Hypertension, Hx Heart Murmur Neurological Medical History: Reports: Hx Cerebrovascular Accident - Lt sided weakness, Hx Seizures Endocrine Medical History: Reports: Hx Diabetes Mellitus Type 2 Renal/ Medical History: Reports: Hx Kidney Stones. Denies: Hx Peritoneal Dialysis GI Medical History: Reports: Hx Gastroesophageal Reflux Disease Musculoskeltal Medical History: Reports Hx Arthritis, Reports Hx Muscle Weakness - Left Skin Medical History: Reports Hx Eczema, Reports Hx Psoriasis Past Surgical History: Reports: Hx Cardiac Catheterization, Hx Cardiac Surgery - VSD having four previous surgeries as a child; heart valve defect, Hx Open Heart Surgery - VSD having five previous surgeries as a child; heart valve defect, Hx Vascular Surgery - Stents in right leg, Other - 4 separate operations for ventricular septal defect as a child.. Denies: Hx Pacemaker - Immunizations Immunizations up to date: Yes Hx Diphtheria, Pertussis, Tetanus Vaccination: Yes Hx Pneumococcal Vaccination: 03/24/13 Review of Systems - Review of Systems Constitutional: No symptoms reported EENT: No symptoms reported Cardiovascular: No symptoms reported Respiratory: See HPI Gastrointestinal: No symptoms reported Genitourinary: No symptoms reported Male Genitourinary: No symptoms reported Musculoskeletal: See HPI Skin: No symptoms reported Hematologic/Lymphatic: No symptoms reported Neurological/Psychological: No symptoms reported Physical Exam - Vital signs Vitals: Temp Pulse Resp BP Pulse Ox 99.1 F 84 16 184/104 H 95 08/28/17 06:22 08/28/17 06:22 08/28/17 06:22 08/28/17 06:22 08/28/17 06:22 Interpretation: Normal - General General appearance: Appears well, Alert In distress: None - HEENT Head: Normocephalic, Atraumatic Eyes: Normal Conjunctiva: Normal Pupils: PERRL Mucous membranes: Normal Pharynx: Normal Neck: Supple. No: Lymphadenopathy - Respiratory Respiratory status: No respiratory distress Chest status: Nontender Breath sounds: Normal Chest palpation: Normal - Cardiovascular Rhythm: Regular Heart sounds: Normal auscultation Murmur: Yes - leaky aortic valve-dr sanchez - Abdominal Inspection: Normal Distension: No distension Bowel sounds: Normal Tenderness: Tender - mild right side. No: McBurney's point, Mills's sign Organomegaly: No organomegaly. No: Hepatomegaly, Splenomegaly Notes: ? edema to lower abdominal tissue - Back Back: Normal, Nontender. No: CVA tenderness - Extremities General upper extremity: Normal inspection, Nontender, Normal color, Normal ROM , Normal temperature General lower extremity: Normal inspection, Nontender, Edema - pitting bilateral legs, Normal color, Normal ROM, Normal temperature, Normal weight bearing. No: Eric's sign - Neurological Neuro grossly intact: Yes Cognition: Normal Orientation: AAOx4 Eric Coma Scale Eye Opening: Spontaneous Eric Coma Scale Verbal: Oriented [place] Coma Scale Motor: Obeys Commands [place] Coma Scale Total: 15 Speech: Normal Motor strength normal: LUE, RUE, LLE, RLE Sensory: Normal - Psychological Associated symptoms: Normal affect, Normal mood - Skin Skin Temperature: Warm Skin Moisture: Dry Skin Color: Normal Skin irregularity: negative: Rash Course - Re-evaluation Re-evalutation: 08/28/17 09:52 CT scan shows stranding in the subcutaneous tissue appendix is normal. Bowel normal. Consult Dr. Parada who said to give Zaroxolyn 2.5 mg p.o. on Bumex 1 mg IV. Patient can be discharged home after he diuresis some in the emergency department, increase the bumex to 2mg twice a day for a few days. Lab work is negative. EKG sinus rhythm, cardiac enzymes are negative. Chest x-ray shows mild pulmonary congestion. will also give his doses of antihypertensives which he did not take today. We secured him an appt with dr mae at 10:15 in the morning. - Vital Signs Vital signs: Temp Pulse Resp BP Pulse Ox 99.1 F 84 19 164/112 H 99 08/28/17 06:22 08/28/17 06:22 08/28/17 09:02 08/28/17 12:34 08/28/17 12:01 - Laboratory Result Diagrams: 08/28/17 07:00 08/28/17 07:00 Laboratory results interpreted by me: 08/28/17 08/28/17 08/28/17 07:00 07:00 07:00 RBC 4.28 L Hgb 12.0 L Hct 35.7 L RDW 15.9 H Potassium 3.4 L Glucose 238 H AST 13 L NT-Pro-B Natriuret Pep 2850 H Albumin 3.2 L Urine Protein Urine Glucose (UA) 08/28/17 08:00 RBC Hgb Hct RDW Potassium Glucose AST NT-Pro-B Natriuret Pep Albumin Urine Protein 100 H Urine Glucose (UA) 50 H Discharge - Discharge Clinical Impression: Peripheral edema Hypertension Qualifiers: Hypertension type: unspecified Qualified Code(s): I10 - Essential (primary) hypertension Abdominal pain Qualifiers: Abdominal location: right lower quadrant Qualified Code(s): R10.31 - Right lower quadrant pain Congestive heart failure Qualifiers: Heart failure type: unspecified Heart failure chronicity: chronic Qualified Code(s): I50.9 - Heart failure, unspecified Condition: Good Disposition: HOME, SELF-CARE Instructions: Abdominal Pain ([facility]), Congestive Heart Failure ([facility]), Dependent Edema ([facility]), Edema, Peripheral ([facility]), High Blood Pressure ([facility]), High Blood Pressure, Requiring Treatment ([facility]) Additional Instructions: Medications represcribed according to the discharge documentation from May. Your metoprolol you need to take 50 mg every 12 hours Lisinopril is 40 mg per day not 10 mg Increase the Bumex to 2 mg twice a day for a week You have a follow-up appointment with Dr. Mae tomorrow morningkeep that appointment Prescriptions: Bumetanide [Bumex 2 mg Tablet] 2 tab PO BID #15 tab Lisinopril 40 mg PO DAILY #30 tablet Metoprolol Tartrate [Lopressor] 50 mg PO BID #60 tablet Referrals: URIEL MAE MD [ACTIVE STAFF] - Follow up tomorrow
[2017-08-28 07:34] LABS: ALANINE AMINOTRANSFERASE 28 U/L (21-72); ALBUMIN 3.2 g/dL (3.5-5.0); ALKALINE PHOSPHATASE 99 U/L (38-126); ANION GAP 9 (5-19); ASPARTATE AMINO TRANSFERASE 13 U/L (17-59); BILIRUBIN,DIRECT 0.4 mg/dL (0.0-0.4); BILIRUBIN,TOTAL 0.4 mg/dL (0.2-1.3); BLOOD UREA NITROGEN 14 mg/dL (7-20); CALCIUM 8.8 mg/dL (8.4-10.2); CARBON DIOXIDE 28 mmol/L (22-30); CHLORIDE 103 mmol/L (98-107); CREATINE KINASE 56 U/L (55-170); GLUCOSE 238 mg/dL (75-110); POTASSIUM 3.4 mmol/L (3.6-5.0); SODIUM 139.9 mmol/L (137-145); TOTAL PROTEIN 6.5 g/dL (6.3-8.2)
[2017-08-28 07:45] LABS: CREATINE KINASE MB 0.51 ng/mL (<4.55); TROPONIN I 0.017 ng/mL
[2017-08-28 07:46] LABS: ABSOLUTE LYMPHOCYTES# (MANUAL) 1.6 10^3/uL (0.5-4.7); ABSOLUTE MONOCYTES # (MANUAL) 0.2 10^3/uL (0.1-1.4); ABSOLUTE NEUTROPHILS# (MANUAL) 4.2 10^3/uL (1.7-8.2); ANISOCYTOSIS SLIGHT; BASOPHILS % (MANUAL) 0 % (0-2); EOSINOPHILS % (MANUAL) 2 % (0-6); HYPOCHROMASIA SLIGHT; LYMPHOCYTES % (MANUAL) 25 % (13-45); MONOCYTES % (MANUAL) 4 % (3-13); PLATELET COMMENT ADEQUATE; POLYCHROMASIA 1+; SEGMENTED NEUTROPHILS % (MAN) 68 % (42-78); TOTAL CELLS COUNTED 100; TOXIC GRANULATION SLIGHT
[2017-08-28 08:51] LABS: APPEARANCE,URINE CLEAR; BILIRUBIN,URINE NEGATIVE (NEGATIVE); COLOR,URINE YELLOW; GLUCOSE, URINE 50 mg/dL (NEGATIVE); KETONES,URINE NEGATIVE (NEGATIVE); LEUKOCYTE ESTERASE,URINE NEGATIVE (NEGATIVE); NITRITE,URINE NEGATIVE (NEGATIVE); PROTEIN,URINE 100 mg/dL (NEGATIVE); URINE SPECIFIC GRAVITY 1.014; UROBILINOGEN,URINE NEGATIVE mg/dL (<2.0)
--- NOTE | 2017-08-28 08:59 | EKG REPORT ---
SEVERITY:- ABNORMAL ECG - SINUS RHYTHM PROBABLE LEFT ATRIAL ABNORMALITY BORDERLINE IVCD WITH LAD ABNORMAL T, CONSIDER ISCHEMIA, ANT-LAT LEADS : Confirmed by: Jenifer Khan 28-Aug-2017 08:58:34
--- NOTE | 2017-08-28 09:13 | RADIOLOGY REPORT (SQ) ---
EXAM DESCRIPTION: CT LTD RENAL STONE PROTOCOL ON COMPLETED DATE/TIME: 08/28/2017 8:56 am REASON FOR STUDY: right flank, RLQ abd pain COMPARISON: None. TECHNIQUE: CT scan of the abdomen and pelvis performed without intravenous or oral contrast. Images reviewed with lung, soft tissue, and bone windows. Reconstructed coronal and sagittal MPR images revi ewed. All images stored on PACS. All CT scanners at this facility use dose modulation, iterative reconstruction, and/or weight based d osing when appropriate to reduce radiation dose to as low as reasonably achievable (ALARA). [facility]: Dose Right [facility]: CareDose [facility]: Dose Right [facility]: Teradose 4D [facility]: [employer] RADIATION DOSE: CT Rad equipment meets quality standard of care and radiation dose reduction techniq ues were employed. CTDIvol: 18.1 mGy. DLP: 1043 mGy-cm.mGy. LIMITATIONS: None. FINDINGS: LOWER CHEST: Cardiac enlargement. No pericardial effusion. Clear lung bases. NON-CONTRASTED LIVER, SPLEEN, ADRENALS: Evaluation limited by lack of IV contrast. No identified sign ificant masses. PANCREAS: No masses. No peripancreatic inflammatory changes. GALLBLADDER: No identified stones by CT criteria. No inflammatory changes to suggest cholecystitis. RIGHT KIDNEY AND URETER: No solid masses. No significant calcification. No hydronephrosis or hydroure ter. LEFT KIDNEY AND URETER: Chronic punctate nephrolithiasis without evidence of hydronephrosis. No worr isome mass or ureteral stones. AORTA AND RETROPERITONEUM: No developing aortic aneurysm. Shotty chronic retroperitoneal lymph nodes . BOWEL AND PERITONEAL CAVITY: No obvious masses or inflammatory changes. No free fluid. APPENDIX: Normal. PELVIS, BLADDER, AND ABDOMINAL WALL:Unremarkable pelvis. Mild stranding throughout the subcutaneous ventral abdominal fat, nonspecific. No drainable collections. No hernia. BONES: No significant findings. OTHER: No other significant finding. IMPRESSION: 1. Nonobstructive left nephrolithiasis. No acute intra-abdominal process evident. 2. Nonspecific ventral subcutaneous fat stranding could reflect cellulitis. TECHNICAL DOCUMENTATION: JOB ID: [id number] Quality ID # [id number]: Final reports with documentation of one or more dose reduction techniques (e.g., Au tomated exposure control, adjustment of the mA and/or kV according to patient size, use of iterative reconstruction technique) 2010 [employer]- All Rights Reserved Reading location - IP/workstation name: [email or web address]
[2017-08-28] MEDS ORDERED: BUMETANIDE INJ/PF 1 MG/4 ML SDV IV ONE (09:51)
[2017-08-28] MEDS ORDERED: METOLAZONE 2.5 MG TABLET PO ONE (09:51)
[2017-08-28] MEDS ORDERED: ACETAMINOPHEN 325 MG TABLET PO ONE (09:56)
[2017-08-28] MEDS ORDERED: METOPROLOL TARTRATE 50 MG TABLET PO ONE (11:54)
[2017-08-28] MEDS ORDERED: LISINOPRIL 10 MG TABLET PO ONE (11:54)
[2017-08-28] MEDS ORDERED: AMLODIPINE BESYLATE 5 MG TABLET PO ONE (12:03)
[2017-08-28 12:35] VITALS: BP 164/112
== END 2017-08-28 13:03 | disposition home or self-care (01) ==
LOC: ER 06:14
DX: R60.0 Localized edema (principal); I10 Essential (primary) hypertension; R10.31 Right lower quadrant pain; I50.9 Heart failure, unspecified; R06.00 Dyspnea, unspecified; E11.9 Type 2 diabetes mellitus without complications; E78.5 Hyperlipidemia, unspecified; M54.5 Low back pain; G89.29 Other chronic pain; Z79.899 Other long term (current) drug therapy
CPT/HCPCS: 93005; 99285; 96374; 36415; 82553; 82550; 85025; 80053; 81001; 84484; 83880; 71045; 76380; 93010; A9270 ×5; J3490

== ENCOUNTER 2017-09-24 23:19 | Inpatient (IN) | payer MEDICARE ==
[2017-09-25] MEDS ORDERED: ASPIRIN 81 MG TABLET, CHEWABLE PO ONE (01:29)
--- NOTE | 2017-09-25 01:30 | ER Document Report ---
ED Respiratory Problem - General Chief Complaint: Breathing Difficulty Stated Complaint: BREATHING DIFFICULTY Time Seen by Provider: 09/25/17 01:20 Notes: Patient is a 47-year-old male who comes emergency department for chief complaint of shortness of breath, cough, tightness in the center of his chest, and difficulty lying flat. He states he also gets out of breath quickly when walking short distances. He has been progressively worsening with the symptoms for 4 days. He denies fever. He is compliant with his medications including Bumex and blood pressure medications. He does have a history of CHF along with hypertension. TRAVEL OUTSIDE OF THE [place] IN LAST 30 DAYS: No COUNTRY TRAVELED TO/FROM: [place] - Related Data Allergies/Adverse Reactions: iodine [Iodine] Allergy (Severe, Verified 06/18/17 11:39) SWELLING Shellfish * [Shellfish] Allergy (Severe, Verified 06/18/17 11:39) Anaphylaxis morphine [Morphine] Allergy (Mild, Verified 06/18/17 11:39) diazepam [From Valium] Allergy (Verified 06/18/17 11:39) furosemide [From Lasix] Allergy (Verified 06/18/17 11:39) Past Medical History - General Information source: Patient - Social History Smoking Status: Never Smoker Chew tobacco use (# tins/day): No Frequency of alcohol use: None Drug Abuse: None Lives with: Family Family History: Reviewed & Not Pertinent, Arthritis, CAD, CVA, DM, Hyperlipidemia, Hypertension, Malignancy, Other Patient has suicidal ideation: No Patient has homicidal ideation: No - Past Medical History Cardiac Medical History: Reports: Hx Congestive Heart Failure, Hx Coronary Artery Disease, Hx DVT - right leg., Hx Heart Attack, Hx Hypercholesterolemia, Hx Hypertension, Hx Heart Murmur Pulmonary Medical History: Denies: Hx Asthma, Hx COPD, Hx Tuberculosis Neurological Medical History: Reports: Hx Cerebrovascular Accident - Lt sided weakness, Hx Seizures Endocrine Medical History: Reports: Hx Diabetes Mellitus Type 2. Denies: Hx Hyperthyroidism, Hx Hypothyroidism Renal/ Medical History: Reports: Hx Kidney Stones. Denies: Hx Peritoneal Dialysis GI Medical History: Reports: Hx Gastroesophageal Reflux Disease. Denies: Hx Cirrhosis, Hx Hepatitis Musculoskeltal Medical History: Reports Hx Arthritis, Reports Hx Muscle Weakness - Left Skin Medical History: Reports Hx Eczema, Denies Hx MRSA, Reports Hx Psoriasis Psychiatric Medical History: Denies: Hx Depression, Hx Schizoaffective Disorder Infectious Medical History: Denies: Hx Hepatitis, Hx MRSA Past Surgical History: Reports: Hx Cardiac Catheterization, Hx Cardiac Surgery - VSD having four previous surgeries as a child; heart valve defect, Hx Open Heart Surgery - VSD having five previous surgeries as a child; heart valve defect, Hx Vascular Surgery - Stents in right leg, Other - 4 separate operations for ventricular septal defect as a child.. Denies: Hx Pacemaker - Immunizations Immunizations up to date: Yes Hx Diphtheria, Pertussis, Tetanus Vaccination: Yes Hx Pneumococcal Vaccination: 03/24/13 Review of Systems - Review of Systems Constitutional: No symptoms reported EENT: No symptoms reported Cardiovascular: See HPI Respiratory: See HPI Gastrointestinal: No symptoms reported Genitourinary: No symptoms reported Male Genitourinary: No symptoms reported Musculoskeletal: No symptoms reported Skin: No symptoms reported Hematologic/Lymphatic: No symptoms reported Neurological/Psychological: No symptoms reported Physical Exam - Vital signs Vitals: Temp Pulse Resp BP Pulse Ox 98.9 F 87 18 169/114 H 97 09/24/17 23:51 09/24/17 23:51 09/24/17 23:51 09/24/17 23:51 09/24/17 23:51 Interpretation: Normal - General General appearance: Appears well In distress: None - HEENT Head: Normocephalic, Atraumatic Eyes: Normal Pupils: PERRL - Respiratory Respiratory status: No respiratory distress. No: Respiratory distress, Tachypnea Chest status: Nontender Breath sounds: Rales. No: Decreased air movement, Nonproductive cough Chest palpation: Normal - Cardiovascular Rhythm: Regular Heart sounds: Normal auscultation Murmur: No - Abdominal Inspection: Normal Distension: No distension Bowel sounds: Normal Tenderness: Nontender Organomegaly: No organomegaly - Back Back: Normal, Nontender - Extremities General upper extremity: Normal inspection, Nontender, Normal color, Normal ROM , Normal temperature General lower extremity: Normal inspection, Nontender, Edema, Normal temperature - Neurological Neuro grossly intact: Yes Cognition: Normal Orientation: AAOx4 [place] Coma Scale Eye Opening: Spontaneous [place] Coma Scale Verbal: Oriented [place] Coma Scale Motor: Obeys Commands [place] Coma Scale Total: 15 Speech: Normal Motor strength normal: LUE, RUE, LLE, RLE Sensory: Normal - Psychological Associated symptoms: Normal affect, Normal mood - Skin Skin Temperature: Warm Skin Moisture: Dry Skin Color: Normal Course - Re-evaluation Re-evalutation: EKG showing flipped T waves inferiorly, however this is not changed from prior, no T-wave inversions or ST segment changes in consecutive leads. Patient denying chest pain currently other than when I press on his chest, there is some reproducible chest pain. Patient does have rales on exam. He has significant dyspnea on exertion, he can barely walk a few steps before he is panting and he will break out into a sweat. Chest x-ray does show pulmonary vascular congestion. BNP is elevated. CBC, chemistry generally unremarkable otherwise. Cardiac enzymes indeterminate. Because of patient's significant dyspnea on exertion with CHF exacerbation, discussed with patient, will discuss with hospitalist for potential admission. Giving dose of IV Bumex. Discussed with Dr. Ramsay, patient will be admitted to telemetry full admission. - Vital Signs Vital signs: Temp Pulse Resp BP Pulse Ox 98.9 F 87 22 H 157/95 H 95 09/24/17 23:51 09/24/17 23:51 09/25/17 03:00 09/25/17 03:00 09/25/17 03:00 - Laboratory Result Diagrams: 09/25/17 01:50 09/25/17 01:50 Laboratory results interpreted by me: 09/25/17 09/25/17 09/25/17 01:50 01:50 01:50 Hgb 12.4 L Hct 37.2 L RDW 15.9 H Potassium 3.3 L Glucose 219 H NT-Pro-B Natriuret Pep 3320 H Discharge - Discharge Clinical Impression: Dyspnea on exertion, Pulmonary vascular congestion, Acute on chronic diastolic CHF (congestive heart failure) Condition: Stable Disposition: ADMITTED INPATIENT Admitting Provider: Hospitalist Unit Admitted: Telemetry
--- NOTE | 2017-09-25 01:45 | RADIOLOGY REPORT (SQ) ---
EXAM DESCRIPTION: CHEST 2 VIEWS CLINICAL HISTORY: er15 sob, chest tightness COMPARISON: 08/28/2017 FINDINGS: Frontal and lateral views of the chest. Cardiomegaly. Prior median sternotomy. Leads overlie the chest. Pulmonary vascular congestion. No consolidation, pneumothorax, or pleural effusion. No displaced rib fractures identified. Upper abdominal soft tissues are unremarkable. IMPRESSION: 1. Cardiomegaly with pulmonary vascular congestion.
[2017-09-25 02:10] LABS: ABSOLUTE BASOPHILS # (AUTO) 0.1 10^3/uL (0.0-0.2); ABSOLUTE EOSINOPHILS # (AUTO) 0.1 10^3/uL (0.0-0.6); ABSOLUTE LYMPHOCYTES (AUTO) 1.4 10^3/uL (0.5-4.7); ABSOLUTE MONOCYTES (AUTO) 0.4 10^3/uL (0.1-1.4); ABSOLUTE NEUT (AUTO) 4.5 10^3/uL (1.7-8.2); BASOPHILS % (AUTO) 1.5 % (0-2); EOSINOPHILS % (AUTO) 1.2 % (0-6); HEMATOCRIT 37.2 % (37.9-51.0); HEMOGLOBIN 12.4 g/dL (13.5-17.0); LYMPHOCYTES % (AUTO) 21.7 % (13-45); MEAN CORPUSCULAR HEMOGLOBIN 28.1 pg (27.0-33.4); MEAN CORPUSCULAR HGB CONC 33.5 g/dL (32.0-36.0); MEAN CORPUSCULAR VOLUME 84 fl (80-97); MONOCYTES % (AUTO) 6.1 % (3-13); PLATELET COUNT 309 10^3/uL (150-450); RED BLOOD COUNT 4.43 10^6/uL (4.35-5.55); RED CELL DISTRIBUTION WIDTH 15.9 % (11.5-14.0); SEGMENTED NEUTROPHILS % (AUTO) 69.5 % (42-78); TOTAL CELLS COUNTED % (AUTO) 100 %; WHITE BLOOD COUNT 6.4 10^3/uL (4.0-10.5)
[2017-09-25 02:18] LABS: ALANINE AMINOTRANSFERASE 22 U/L (21-72); ALBUMIN 3.6 g/dL (3.5-5.0); ALKALINE PHOSPHATASE 103 U/L (38-126); ANION GAP 7 (5-19); ASPARTATE AMINO TRANSFERASE 25 U/L (17-59); BILIRUBIN,DIRECT 0.4 mg/dL (0.0-0.4); BILIRUBIN,TOTAL 0.5 mg/dL (0.2-1.3); BLOOD UREA NITROGEN 15 mg/dL (7-20); CALCIUM 8.9 mg/dL (8.4-10.2); CARBON DIOXIDE 30 mmol/L (22-30); CHLORIDE 102 mmol/L (98-107); CREATINE KINASE 70 U/L (55-170); GLUCOSE 219 mg/dL (75-110); POTASSIUM 3.3 mmol/L (3.6-5.0); SODIUM 139.1 mmol/L (137-145); TOTAL PROTEIN 7.7 g/dL (6.3-8.2)
[2017-09-25 02:29] LABS: CREATINE KINASE MB 0.75 ng/mL (<4.55); TROPONIN I 0.023 ng/mL
[2017-09-25] MEDS ORDERED: BUMETANIDE INJ/PF 1 MG/4 ML SDV IV ONE (02:48)
[2017-09-25] MEDS ORDERED: ONDANSETRON 4 MG TAB.RAPDIS PO PRN (03:25)
[2017-09-25] MEDS ORDERED: DEXTROSE 50%-WATER 25 GM/50 ML DISP.SYRIN IV PRN ×2 (03:43)
[2017-09-25] MEDS ORDERED: GLUCAGON,HUMAN RECOMB 1 MG INJ IM PRN (03:43)
[2017-09-25] MEDS ORDERED: DEXTROSE 40% GEL 15 GM TUBE PO PRN ×2 (03:43)
--- NOTE | 2017-09-25 04:06 | PDOC H&P ---
History of Present Illness Admission Date/PCP: 09/25/17 03:18 History of Present Illness: SHARON JERONIMO is a 47 year old black male patient who is in no case of systolic congestive heart failure, presented with chief complaint of increasingly worsening shortness of breath. Patient reports this he was in his usual baseline state of health up until 4 days when his shortness of breath is precipitated by mild exertion. At his baseline patient has chronic shortness of breath but this time unusually sever. He is not unable to lie flat and has orthopnea of 3 pillows and occasional paroxysmal nocturnal dyspnea. Patient claims that he is compliant with his cardiac medications and with his diet. He denies taking [id number] medications. Her initial workup at the ER shows elevated BNP of 3320 and mild hypokalemia of 3.3. His chest x-ray also reported as cardiomegaly and pulmonary congestion. After he was given a dose of IV Bumex patient relatively thinks better Past Medical History Cardiac Medical History: Reports: Congestive Heart Failure, Coronary Artery Disease, DVT - right leg., Myocardial Infarction, Hyperlipidema, Hypertension, Heart Murmur Pulmonary Medical History: Denies: Asthma, Chronic Obstructive Pulmonary Disease (COPD), Tuberculosis Neurological Medical History: Reports: Seizures Endocrine Medical History: Reports: Diabetes Mellitus Type 1, Diabetes Mellitus Type 2 Denies: Hyperthyroidism, Hypothyroidism GI Medical History: Reports: Gastroesophageal Reflux Disease Denies: Cirrhosis, Hepatitis Musculoskeltal Medical History: Reports: Arthritis Skin Medical History: Reports: Eczema, Psoriasis Psychiatric Medical History: Denies: Depression, Schizoaffective Disorder Infectious Medical History: Denies: Methicillin-Resistant Staph Aureus Past Surgical History Past Surgical History: Reports: Cardiac Catheterization, Vascular Surgery - Stents in right leg, Other - 4 separate operations for ventricular septal defect as a child. Denies: Pacemaker Social History Smoking Status: Unknown if Ever Smoked Frequency of Alcohol Use: None Hx Recreational Drug Use: No Drugs: None Hx Prescription Drug Abuse: No Family History Family History: Reviewed & Not Pertinent, Arthritis, CAD, CVA, DM, Hyperlipidemia, Hypertension, Malignancy, Other Parental Family History Reviewed: Yes Children Family History Reviewed: No Sibling(s) Family History Reviewed.: Yes Medication/Allergy Home Medications: Albuterol Sulfate [Ventolin Hfa] 1 - 2 puff IH Q4 PRN #1 hfa.aer.ad 06/21/17 Amlodipine Besylate [Norvasc 10 mg Tablet] 10 mg PO DAILY 30 Days #30 tablet Aspirin [Adult Aspirin Regimen] 81 mg PO DAILY 30 Days #30 tablet. 06/21/17 Atorvastatin Calcium [Lipitor 40 mg Tablet] 40 mg PO QPM 30 Days #30 tablet Bumetanide [Bumex 2 mg Tablet] 2 mg PO DAILY 30 Days #30 tablet 06/21/17 Clobetasol Propionate [Temovate 0.05% Cream 15 gm] 1 applic TP BIDP #60 gm 06/21 Insulin Glargine,Hum.rec.anlog [Lantus Insulin 100 Unit/mL] 18 unit SUBCUT DAILY #1 insuln.pen 06/21/17 Levofloxacin [Levaquin 500 mg Tablet] 500 mg PO DAILY 5 Days #5 tablet 06/21/17 Lisinopril [Prinivil 40 mg Tablet] 40 mg PO DAILY 30 Days #30 tablet 06/21/17 Metformin HCl [Glucophage 500 mg Tablet] 500 mg PO BIDBS 30 Days #60 tablet Methotrexate Sodium [Methotrexate] 10 mg PO Q7D 30 Days #16 tablet 06/21/17 Metoprolol Succinate [Toprol Xl 50 mg Tab.sr] 50 mg PO Q12 30 Days #30 tab.sr.24h 06/21/17 Oxycodone HCl/Acetaminophen [Percocet 5-325 mg Tablet] 1 tab PO Q6HP PRN 5 Days #20 tablet 06/21/17 Bumetanide [Bumex 2 mg Tablet] 2 tab PO BID #15 tab 08/28/17 Lisinopril 40 mg PO DAILY #30 tablet 08/28/17 Metoprolol Tartrate [Lopressor] 50 mg PO BID #60 tablet 08/28/17 Allergies/Adverse Reactions: iodine [Iodine] Allergy (Severe, Verified 06/18/17 11:39) SWELLING Shellfish * [Shellfish] Allergy (Severe, Verified 06/18/17 11:39) Anaphylaxis morphine [Morphine] Allergy (Mild, Verified 06/18/17 11:39) diazepam [From Valium] Allergy (Verified 06/18/17 11:39) furosemide [From Lasix] Allergy (Verified 06/18/17 11:39) Review of Systems Gastrointestinal: ABSENT: as per HPI, abdominal pain, bloating, coffee ground emesis, constipation, diarrhea, dysphagia, heartburn, hematemesis, hematochezia , melena, nausea, vomiting, other Neurological: ABSENT: abnormal gait, abnormal speech, confusion, dizziness, focal weakness, syncope Psychiatric: ABSENT: anxiety, depression, homidical ideation, suicidal ideation Physical Exam Vital Signs: Temp Pulse Resp BP Pulse Ox 98.9 F 87 22 H 157/95 H 95 09/24/17 23:51 09/24/17 23:51 09/25/17 03:00 09/25/17 03:00 09/25/17 03:00 General appearance: PRESENT: severe distress Head exam: PRESENT: atraumatic Eye exam: PRESENT: conjunctiva pink, EOMI, PERRLA. ABSENT: scleral icterus Mouth exam: PRESENT: moist Neck exam: PRESENT: JVD Respiratory exam: PRESENT: crackles - Fine crackles at the lung bases Cardiovascular exam: PRESENT: systolic murmur - Grade 3/6 pansystolic murmur best heard at the left sternal border Results Impressions: Chest X-Ray 09/25/17 00:00 IMPRESSION: 1. Cardiomegaly with pulmonary vascular congestion. Assessment & Plan - Diagnosis (1) Diabetes 1.5, managed as type 2 Is this a current diagnosis for this admission?: Yes Plan: I will continue his home medication which includes Lantus and metformin and will put him also on sliding scale and monitor his blood glucose 3 times a day (2) Acute on chronic diastolic CHF (congestive heart failure) Is this a current diagnosis for this admission?: Yes Plan: We will put him on IV Bumex 1 mg twice a day and also will continue the rest of his cardiac medication which includes metoprolol succinate and metoprolol tartrate. I will discontinue his amlodipine which may contribute also to his bilateral leg edema. We will monitor him with daily weights and strict input output. (3) Dyspnea on exertion Is this a current diagnosis for this admission?: Yes Plan: We will diurese him and put him on supplemental oxygen (4) Pulmonary vascular congestion Is this a current diagnosis for this admission?: Yes Plan: As #3 (5) Hypertension Qualifiers: Hypertension type: essential hypertension Qualified Code(s): I10 - Essential (primary) hypertension Is this a current diagnosis for this admission?: Yes Plan: Continue his home medications (6) Coronary artery disease Is this a current diagnosis for this admission?: No Plan: Patient does not have any chest. He is stable and will continue his home medications. - Time Time Spent: 30 to 50 Minutes Within: within 36 hours, within 72 hours - Inpatient Certification Medical Necessity: Need Close Monitoring Due to Risk of Patient Decompensation Post Hospital Care: Other - Follow-up with his regular primary care physician or transition specialist in 1 week
[2017-09-25] MEDS ORDERED: METOPROLOL TARTRATE 100 MG TABLET PO ONE (05:16)
[2017-09-25] MEDS ORDERED: OXYCODONE-ACETAMINOPHEN 5-325 MG TABLET PO ONE (05:17)
[2017-09-25] MEDS ORDERED: HYDRALAZINE HCL INJ/PF 20 MG/1 ML SDV IV ONE (05:19)
[2017-09-25] MEDS ORDERED: ALBUTEROL SULFATE 0.083% NEB 2.5 MG/3 ML AMPUL NEB PRN (09:05)
--- NOTE | 2017-09-25 09:35 | EKG REPORT ---
SEVERITY:- ABNORMAL ECG - SINUS RHYTHM LEFT ATRIAL ABNORMALITY BORDERLINE IVCD WITH LAD BORDERLINE T ABNORMALITIES, ANT-LAT LEADS BORDERLINE PROLONGED QT INTERVAL : Confirmed by: Jenifer Khan 25-Sep-2017 09:34:35
[2017-09-25] MEDS: BUMETANIDE INJ/PF 1 MG/4 ML SDV IV SCH ×2 (10:38→18:26)
[2017-09-25] MEDS: FAMOTIDINE 20 MG TABLET PO SCH ×2 (10:42→23:36)
[2017-09-25] MEDS: ENOXAPARIN SODIUM INJ 40 MG/0.4 ML DISP.SYRIN SUBCUT SCH (10:42)
[2017-09-25] MEDS: DOCUSATE SODIUM 100 MG CAPSULE PO SCH (10:42)
[2017-09-25] MEDS: INSULIN REG, HUMAN 100 UNIT/ML 3 ML VIAL (PYX) SUBCUT PRN ×2 (13:20→23:50)
[2017-09-25] MEDS ORDERED: HYDRALAZINE HCL INJ/PF 20 MG/1 ML SDV IV PRN (13:55)
[2017-09-25] MEDS ORDERED: METOPROLOL SUCCINATE 50 MG TAB.SR.24H PO SCH (14:00)
[2017-09-25] MEDS ORDERED: ALBUTEROL SULFATE HFA (90 MCG/PUFF) 8 GM MDI (1 MDI/ER DISP) IH PRN (14:18)
[2017-09-25] MEDS ORDERED: NITROGLYCERIN 0.4 MG/TAB 25 TAB/BOTTLE SL PRN (14:18)
[2017-09-25] MEDS ORDERED: ALBUTEROL SULFATE HFA (90 MCG/PUFF) 200 PUFF/8.5 GM MDI IH PRN (14:37)
[2017-09-25] MEDS ORDERED: METOPROLOL SUCCINATE 50 MG TAB.SR.24H PO ONE (15:00)
[2017-09-25] MEDS ORDERED: LISINOPRIL 10 MG TABLET PO ONE (15:00)
[2017-09-25] MEDS: TRAMADOL HCL 50 MG TABLET PO PRN (15:25)
[2017-09-25] MEDS ORDERED: METHYLPREDNISOLONE INJ 125 MG/2 ML SDV IV ONE ×2 (18:00→22:20)
[2017-09-25] MEDS: OXYCODONE-ACETAMINOPHEN 5-325 MG TABLET PO PRN (18:27)
[2017-09-25] MEDS ORDERED: DIPHENHYDRAMINE HCL 50 MG/ML VIAL IV ONE ×2 (22:05→22:20)
[2017-09-25] MEDS ORDERED: DIPHENHYDRAMINE HCL 50 MG/ML VIAL ONE ×2 (22:08→22:21)
[2017-09-25] MEDS ORDERED: LABETALOL HCL INJ 20 MG/4 ML DISP.SYRIN IV ONE (22:12)
[2017-09-25] MEDS ORDERED: EPINEPHRINE INJ 1 MG/10 ML DISP.SYRIN INJ ONE (22:12)
[2017-09-25] MEDS ORDERED: EPINEPHRINE INJ/PF 1 MG/1 ML AMPULE ONE ×2 (22:13→22:16)
[2017-09-25] MEDS ORDERED: METHYLPREDNISOLONE INJ 125 MG/2 ML SDV ONE (22:21)
--- NOTE | 2017-09-25 23:21 | RADIOLOGY REPORT (SQ) ---
EXAM DESCRIPTION: CT HEAD WITHOUT CLINICAL HISTORY: stroke sx COMPARISON: None available TECHNIQUE: Axial CT of the head obtained from the skull apex to the skull base without contrast. FINDINGS: No acute intracranial hemorrhage identified. No mass, mass effect, shift of the midline, abnormal extra-axial fluid collection or CT evidence of acute ischemic change identified. The ventricular system is unremarkable. No acute abnormalities of the supratentorial white matter, basal ganglia, cerebellum, or brainstem. Polypoid mucosal thickening of the maxillary sinuses. Mastoid air cells are well aerated. No skull fracture identified. Visualized orbits and globes are unremarkable. DLP: 990.56 mGy-cm IMPRESSION: 1. No acute intracranial abnormality identified by CT criteria. If there is continued concern for acute ischemic change MRI could provide additional characterization. This exam was performed according to our departmental dose-optimization program, which includes automated exposure control, adjustment of the mA and/or kV according to patient size and/or use of iterative reconstruction technique.
--- NOTE | 2017-09-25 23:30 | Progress Note ---
Provider Note Provider Note: admitted 09/24/17 for acute on chronic CHF exacerbation and is being treated with Lasix and cardiac medications. This night at about22.77 pm rapid response team was patient complaining of shortness of itching and tightness in his throat after he was given hydralazine. His vital signs BP175/115,HR 121 and O2 saturation 97% while he is on 2 L of oxygen. He is given a dose of epinephrine, Solu-Medrol and Benadryl. Tightness in his throat and itchiness relatively improved but become less responsive and also noted to have left- sided weakness. Stroke alert activated patient to follow CT scan and transferred to ICU. When I examined him at ICU patient has left upper and lower extremity weakness.
[2017-09-25] MEDS: ATORVASTATIN CALCIUM 40 MG TABLET PO SCH (23:36)
[2017-09-25] MEDS: ZOLPIDEM TARTRATE 5 MG TABLET PO SCH (23:36)
--- NOTE | 2017-09-26 00:20 | Progress Note ---
Provider Note Provider Note: CT scan of his head is negative for bleeding and the patient is a candidate for TPA administration. Initially patient gave his consent for TPA but later changed her mind and he refused TPA.
[2017-09-26 04:23] LABS: ANION GAP 10 (5-19); BLOOD UREA NITROGEN 18 mg/dL (7-20); CALCIUM 9.4 mg/dL (8.4-10.2); CARBON DIOXIDE 29 mmol/L (22-30); CHLORIDE 96 mmol/L (98-107); GLUCOSE 349 mg/dL (75-110); SODIUM 135.3 mmol/L (137-145)
[2017-09-26] MEDS ORDERED: LORAZEPAM INJ 2 MG/1 ML VIAL IV ONE (06:30)
--- NOTE | 2017-09-26 09:34 | PDOC TRANSFER SUMMARY ---
General Admission Date/PCP: 09/25/17 03:18 Resuscitation Status: Full Code - Transfer Diagnosis (1) Acute on chronic combined systolic (congestive) and diastolic (congestive) heart failure Is this a current diagnosis for this admission?: Yes (2) Coronary artery disease Is this a current diagnosis for this admission?: Yes (3) Diabetes mellitus Is this a current diagnosis for this admission?: Yes (4) HLD (hyperlipidemia) Is this a current diagnosis for this admission?: Yes (5) Plaque psoriasis Is this a current diagnosis for this admission?: Yes (6) Pulmonary hypertension Is this a current diagnosis for this admission?: Yes (7) S/P VSD closure Is this a current diagnosis for this admission?: Yes (8) Uncontrolled hypertension Is this a current diagnosis for this admission?: Yes (9) Left hemiparesis Is this a current diagnosis for this admission?: Yes - Transfer Medications Home Medications: Albuterol Sulfate [Proair HFA] 2 puff IH Q4HP PRN 09/25/17 Amlodipine Besylate [Norvasc 5 mg Tablet] 5 mg PO Q12 09/25/17 Aspirin [Aspirin EC] 81 mg PO DAILY 09/25/17 Atorvastatin Calcium [Lipitor 40 mg Tablet] 40 mg PO QHS 09/25/17 Bumetanide [Bumex 2 mg Tablet] 1 tab PO QAM 09/25/17 Clobetasol Propionate [Temovate 0.05% Cream 15 gm] 1 applic TP BIDP PRN Lisinopril [Prinivil 40 mg Tablet] 40 mg PO DAILY 09/25/17 Metformin HCl [Glucophage 500 mg Tablet] 500 mg PO BIDBS 09/25/17 Methotrexate Sodium [Methotrexate] 10 mg PO WE@1000 09/25/17 Metoprolol Succinate [Toprol Xl 50 mg Tab.sr] 50 mg PO Q12 09/25/17 Nitroglycerin [Nitrostat] 0.4 mg SL Q5MP PRN 09/25/17 Oxycodone HCl/Acetaminophen [Percocet 5-325 mg Tablet] 1 tab PO Q6HP PRN Transfer Medications: Current Medications Albuterol (Proair Hfa Inhalation Aerosol 8.5 Gm Mdi) 2 puff IH Q4HP PRN PRN Reason: SOB/WHEEZING Stop: 10/25/17 14:36 Aspirin (Ecotrin 81 Mg Ec Tablet) 81 mg PO DAILY [facility] Stop: 10/26/17 09:59 Atorvastatin Calcium (Lipitor 40 Mg Tablet) 40 mg PO QHS [facility] Stop: 10/25/17 21:59 Last Admin: 09/25/17 23:36 Dose: Not Given Bumetanide (Bumex Inj/Pf 1 Mg/4 Ml Sdv) 1 mg IV BID [facility] Stop: 10/25/17 09:59 Last Admin: 09/25/17 18:26 Dose: 1 mg Dextrose (Dextrose Inj 50% Syringe (25 Gm/50 Ml)) 25 gm IV PRN PRN; Protocol PRN Reason: PER PROTOCOL Stop: 10/25/17 03:42 Dextrose (Dextrose Inj 50% Syringe (25 Gm/50 Ml)) 12.5 gm IV PRN PRN; Protocol PRN Reason: FOR BG 50-69 IN ALERT PATIENT Stop: 10/25/17 03:42 Docusate Sodium (Colace 100 Mg Capsule) 100 mg PO DAILY [facility] Stop: 10/25/17 09:59 Last Admin: 09/25/17 10:42 Dose: 100 mg Enoxaparin Sodium (Lovenox Inj 40 Mg/0.4 Ml Disp.Syrin) 40 mg SUBCUT DAILY [facility] Stop: 10/25/17 09:59 Last Admin: 09/25/17 10:42 Dose: Not Given Famotidine (Pepcid 20 Mg Tablet) 20 mg PO Q12 [facility] Stop: 10/25/17 09:59 Last Admin: 09/25/17 23:36 Dose: Not Given Glucagon (Glucagen Inj 1 Mg Vial) 1 mg IM PRN PRN; Protocol PRN Reason: Evaluate for BG < 70 Stop: 10/25/17 03:42 Glucose (Glutose 40% Gel 15 Gm Tube) 15 gm PO PRN PRN; Protocol PRN Reason: FOR BG 50-69 IN ALERT PATIENT Stop: 10/25/17 03:42 Glucose (Glutose 40% Gel 15 Gm Tube) 30 gm PO PRN PRN; Protocol PRN Reason: FOR BG < 50 IN ALERT PATIENT Stop: 10/25/17 03:42 Insulin Human Regular (Humulin R (Pyxis) Insulin 100 Unit/Ml 3ml) 0 - 12 unit SUBCUT [id number] PRN; Protocol PRN Reason: PER PROTOCOL Stop: 10/25/17 03:42 Last Admin: 09/25/17 23:50 Dose: 10 unit Lisinopril (Prinivil 10 Mg Tablet) 40 mg PO DAILY [facility] Stop: 10/26/17 09:59 Methotrexate (Rheumatrex 2.5 Mg Tablet) 10 mg PO WE@1000 [facility] Stop: 11/01/17 09:59 Metoprolol Succinate (Toprol Xl 50 Mg Tab.Sr) 50 mg PO DAILY [facility] Stop: 10/26/17 09:59 Nitroglycerin (Nitrostat 0.4 Mg (1/150 Gr) Tabs 25/Bottle) 1 tab SL Q5MP PRN PRN Reason: FOR CHEST PAIN Stop: 10/25/17 14:17 Ondansetron HCl (Zofran Odt 4 Mg Tablet) 4 mg PO Q6HP PRN PRN Reason: FOR NAUSEA/VOMITING Stop: 10/25/17 03:24 Last Admin: 09/25/17 21:02 Dose: 4 mg Oxycodone/Acetaminophen (Percocet 5-325 Mg Tablet) 1 tab PO Q6HP PRN PRN Reason: PAIN SCALE OF 5 Stop: 10/02/17 14:17 Last Admin: 09/25/17 18:27 Dose: 1 tab Sodium Chloride (Saline Flush 2.5 Ml Monoject Prefil Syrin) 2.5 ml IV Q8 [facility] Stop: 10/25/17 05:59 Last Admin: 09/26/17 06:35 Dose: Not Given Tramadol HCl (Ultram 50 Mg Tablet) 50 mg PO Q6HP PRN PRN Reason: FOR PAIN SCALE 3-4 Stop: 10/02/17 14:16 Last Admin: 09/25/17 15:25 Dose: 50 mg Zolpidem Tartrate (Ambien 5 Mg Tablet) 5 mg PO QHS [facility] Stop: 10/02/17 21:59 Last Admin: 09/25/17 23:36 Dose: Not Given - Allergies Allergies/Adverse Reactions: iodine [Iodine] Allergy (Severe, Verified 06/18/17 11:39) SWELLING Shellfish * [Shellfish] Allergy (Severe, Verified 06/18/17 11:39) Anaphylaxis morphine [Morphine] Allergy (Mild, Verified 06/18/17 11:39) diazepam [From Valium] Allergy (Verified 06/18/17 11:39) furosemide [From Lasix] Allergy (Verified 06/18/17 11:39) - Diet/Activity Discharge Diet: Cardiac, Diabetic Discharge Activity: Activity As Tolerated Hospital Course Hospital Course: 47-year-old male with a history of combined systolic/diastolic heart failure presented to the hospital with worsening shortness of breath for about 4 days prior to admission. His shortness of breath was worse with exertion. He reports that he was unable to lie supine. He reported 3 pillow orthopnea and occasional paroxysmal nocturnal dyspnea. He reports being compliant with his cardiac medications as well as his diet. He did not report taking over-the- counter medications. In the emergency department his BNP was 3320. His chest x -ray showed cardiomegaly and pulmonary congestion. He was given IV Bumex, with good results. He was admitted for acute on chronic combined heart failure. He was diuresing very well with IV Bumex. Approximately 10 PM, September 25, 2017 the patient complained of numbness in his tongue, and back of throat feeling "tight". He said he was having "an allergic reaction". About an hour prior, he received Zofran and hydralazine for elevated blood pressure. He reported speech slurring. A rapid response team was called. He was treated empirically with Benadryl 25 mg IV, as well as epinephrine 0.3 mg subcu. He was given labetalol 20 mg IV for elevated blood pressure. During the IV push of the labetalol, the patient stated "I cannot feel". He was referred poorly referring to his leg. He closed his eyes and slumped his head to the side. He was not able to be aroused with a sternal rub. Later he was given Solu-Medrol 125 mg IV as well as Benadryl 25 mg IV. He was transferred to the ICU for closer monitoring. He was not intubated. The following day, he still complained of left-sided weakness. During the night he underwent CT of the head that showed no acute abnormalities. I discussed obtaining a head MRI, but he was very reluctant stating that he was extremely claustrophobic. Based on that, I recommended MRI under anesthesia. However those services are provided here at [facility]. Furthermore, we do not have neurology coverage. I recommended transfer to a tertiary hospital for a neurology evaluation. He was in agreement. I discussed the case with . He graciously accepted the patient. Physical Exam Vital Signs: Temp Pulse Resp BP Pulse Ox 98.1 F 67 19 105/56 L 99 09/26/17 05:58 09/26/17 06:00 09/26/17 06:00 09/26/17 06:00 09/26/17 06:00 Intake & Output 09/25/17 09/26/17 09/27/17 06:59 06:59 06:59 Intake Total 1476 Output Total 1900 1250 Balance -1900 226 Weight 111 kg General appearance: PRESENT: no acute distress, cooperative, well-developed, well-nourished Head exam: PRESENT: atraumatic, normocephalic Eye exam: PRESENT: EOMI, PERRLA Mouth exam: PRESENT: moist Neck exam: ABSENT: carotid bruit, JVD, lymphadenopathy, thyromegaly Respiratory exam: PRESENT: clear to auscultation bernardo. ABSENT: rales, rhonchi, wheezes Cardiovascular exam: PRESENT: RRR. ABSENT: diastolic murmur, rubs, systolic murmur GI/Abdominal exam: PRESENT: normal bowel sounds, soft. ABSENT: distended, guarding, mass, organolmegaly, rebound, tenderness Rectal exam: PRESENT: deferred Neurological exam: PRESENT: alert, awake, oriented to person, oriented to place , oriented to time, oriented to situation, CN II-XII grossly intact, motor sensory deficit - Decrease left-sided strength compared to right side. He is able to lift his left arm and leg off the bed. Skin exam: PRESENT: dry, intact, warm. ABSENT: cyanosis, rash Results Laboratory Results: 09/26/17 03:44 09/26/17 03:44 Sodium 135.3 L Potassium 4.0 Chloride 96 L Carbon Dioxide 29 Anion Gap 10 BUN 18 Creatinine 1.12 Est GFR ( Amer) > 60 Est GFR (Non-Af Amer) > 60 Glucose 349 H Calcium 9.4 09/25/17 05:48 Troponin I 0.022 Impressions: Chest X-Ray 09/25/17 00:00 IMPRESSION: 1. Cardiomegaly with pulmonary vascular congestion. Head CT 09/25/17 00:00 IMPRESSION: 1. No acute intracranial abnormality identified by CT criteria. If there is continued concern for acute ischemic change MRI could provide additional characterization. This exam was performed according to our departmental dose-optimization program, which includes automated exposure control, adjustment of the mA and/or kV according to patient size and/or use of iterative reconstruction technique. Plan Discharge Plan: Transfer to [facility] Time Spent: Greater than 30 Minutes - 45 minutes
[2017-09-26] MEDS: DOCUSATE SODIUM 100 MG CAPSULE PO SCH (12:38)
[2017-09-26] MEDS: LISINOPRIL 10 MG TABLET PO SCH (12:40)
[2017-09-26] MEDS: ASPIRIN 81 MG TABLET, ENT COATED PO SCH (12:42)
[2017-09-26] MEDS: FAMOTIDINE 20 MG TABLET PO SCH ×2 (12:42→23:07)
[2017-09-26] MEDS: METOPROLOL SUCCINATE 50 MG TAB.SR.24H PO SCH (12:43)
[2017-09-26] MEDS: BUMETANIDE INJ/PF 1 MG/4 ML SDV IV SCH (12:44)
[2017-09-26] MEDS: ENOXAPARIN SODIUM INJ 40 MG/0.4 ML DISP.SYRIN SUBCUT SCH (12:45)
[2017-09-26] MEDS ORDERED: ONDANSETRON 4 MG TAB.RAPDIS PO PRN (13:00)
[2017-09-26] MEDS: OXYCODONE-ACETAMINOPHEN 5-325 MG TABLET PO PRN (17:50)
[2017-09-26] MEDS: ATORVASTATIN CALCIUM 40 MG TABLET PO SCH (23:08)
[2017-09-26] MEDS: INSULIN REG, HUMAN 100 UNIT/ML 3 ML VIAL (PYX) SUBCUT PRN (23:09)
[2017-09-26] MEDS: ZOLPIDEM TARTRATE 5 MG TABLET PO SCH (23:10)
[2017-09-27] MEDS ORDERED: BUMETANIDE INJ/PF 1 MG/4 ML SDV ONE (04:34)
[2017-09-27] MEDS: BUMETANIDE INJ/PF 1 MG/4 ML SDV IV SCH (04:53)
[2017-09-27 06:34] LABS: ANION GAP 6 (5-19); BLOOD UREA NITROGEN 27 mg/dL (7-20); CALCIUM 8.8 mg/dL (8.4-10.2); CARBON DIOXIDE 33 mmol/L (22-30); CHLORIDE 99 mmol/L (98-107); GLUCOSE 177 mg/dL (75-110); POTASSIUM 3.4 mmol/L (3.6-5.0); SODIUM 138.3 mmol/L (137-145)
[2017-09-27] MEDS ORDERED: POTASSIUM CHLORIDE 10 MEQ TABLET.SA PO SCH (08:00)
[2017-09-27] MEDS: FAMOTIDINE 20 MG TABLET PO SCH ×2 (10:06→22:23)
[2017-09-27] MEDS: METOPROLOL SUCCINATE 50 MG TAB.SR.24H PO SCH (10:06)
[2017-09-27] MEDS: ASPIRIN 81 MG TABLET, ENT COATED PO SCH (10:07)
[2017-09-27] MEDS: LISINOPRIL 10 MG TABLET PO SCH (10:09)
[2017-09-27] MEDS: BUMETANIDE 1 MG TABLET PO SCH (10:14)
[2017-09-27] MEDS: ENOXAPARIN SODIUM INJ 40 MG/0.4 ML DISP.SYRIN SUBCUT SCH (10:15)
[2017-09-27] MEDS: DOCUSATE SODIUM 100 MG CAPSULE PO SCH (10:16)
[2017-09-27] MEDS: POTASSIUM CHLORIDE 10 MEQ TABLET.SA PO SCH ×2 (12:37→16:36)
--- NOTE | 2017-09-27 12:57 | PDOC PROGRESS REPORT ---
Subjective Progress Note for:: 09/27/17 Subjective:: Complains of back pain and dry skin. Reason For Visit: ACUTE ON CHRONIC SYSTOLIC CONGESTIVE HEART FAILURE Physical Exam Vital Signs: Temp Pulse Resp BP Pulse Ox 98.2 F 80 20 139/93 H 96 09/27/17 11:39 09/27/17 11:39 09/27/17 11:39 09/27/17 11:39 09/27/17 11:39 Intake & Output 09/26/17 09/27/17 09/28/17 06:59 06:59 06:59 Intake Total 1476 2120 Output Total 1250 2150 Balance 226 -30 Weight 111 kg 113.2 kg General appearance: PRESENT: no acute distress, well-developed, well-nourished Neck exam: ABSENT: carotid bruit, JVD, lymphadenopathy, thyromegaly Respiratory exam: PRESENT: clear to auscultation bernardo. ABSENT: rales, rhonchi, wheezes Cardiovascular exam: PRESENT: RRR. ABSENT: diastolic murmur, rubs, systolic murmur GI/Abdominal exam: PRESENT: normal bowel sounds, soft. ABSENT: distended, guarding, mass, organolmegaly, rebound, tenderness Neurological exam: PRESENT: alert, awake, oriented to person, oriented to place , oriented to time, oriented to situation, CN II-XII grossly intact. ABSENT: motor sensory deficit Psychiatric exam: PRESENT: appropriate affect, normal mood. ABSENT: homicidal ideation, suicidal ideation Skin exam: PRESENT: dry Results Laboratory Results: 09/27/17 05:40 09/27/17 05:40 Sodium 138.3 Potassium 3.4 L Chloride 99 Carbon Dioxide 33 H Anion Gap 6 BUN 27 H Creatinine 1.20 Est GFR ( Amer) > 60 Est GFR (Non-Af Amer) > 60 Glucose 177 H Calcium 8.8 09/25/17 05:48 Troponin I 0.022 Impressions: Chest X-Ray 09/25/17 00:00 IMPRESSION: 1. Cardiomegaly with pulmonary vascular congestion. Head CT 09/25/17 00:00 IMPRESSION: 1. No acute intracranial abnormality identified by CT criteria. If there is continued concern for acute ischemic change MRI could provide additional characterization. This exam was performed according to our departmental dose-optimization program, which includes automated exposure control, adjustment of the mA and/or kV according to patient size and/or use of iterative reconstruction technique. Assessment & Plan - Diagnosis (1) Acute on chronic combined systolic (congestive) and diastolic (congestive) heart failure Is this a current diagnosis for this admission?: Yes Plan: Clinically, he is asymptomatic. (2) Coronary artery disease Is this a current diagnosis for this admission?: Yes Plan: Stable (3) Diabetes mellitus Qualifiers: Diabetes mellitus type: type 2 Diabetes mellitus complication status: with unspecified complications Is this a current diagnosis for this admission?: Yes Plan: Suboptimal BG. But, he does not comply with a diabetic diet. He has been seen receiving food from local restaurants, ie. [employer] (4) HLD (hyperlipidemia) Qualifiers: Hyperlipidemia type: other hyperlipidemia Qualified Code(s): E78.4 - Other hyperlipidemia Is this a current diagnosis for this admission?: Yes Plan: Continue statin (5) Plaque psoriasis Is this a current diagnosis for this admission?: Yes Plan: Resume steroid cream (6) Pulmonary hypertension Is this a current diagnosis for this admission?: Yes Plan: Stable (7) S/P VSD closure Is this a current diagnosis for this admission?: Yes (8) Uncontrolled hypertension Is this a current diagnosis for this admission?: Yes Plan: BP better. (9) Left hemiparesis Is this a current diagnosis for this admission?: Yes Plan: He was supposed to be transferred to [facility] for Neurology evaluation. If he is still here tomorrow, I will obtain CT head. For now, PT and OT. - Time Time Spent with patient: 25-34 minutes Medications reviewed and adjusted accordingly: Yes Anticipated discharge: [facility] - Inpatient Certification Based on my medical assessment, after consideration of the patient's comorbidities, presenting symptoms, or acuity I expect that the services needed warrant INPATIENT care.: Yes I certify that my determination is in accordance with my understanding of Medicare's requirements for reasonable and necessary INPATIENT services [42 CFR 412.3e].: Yes Medical Necessity: Need Close Monitoring Due to Risk of Patient Decompensation
[2017-09-27] MEDS: CLOBETASOL PROPIONATE 0.05% CREAM 15 GM TP PRN (16:39)
[2017-09-27] MEDS: TRAMADOL HCL 50 MG TABLET PO PRN (16:43)
[2017-09-27] MEDS: ZOLPIDEM TARTRATE 5 MG TABLET PO SCH (22:23)
[2017-09-27] MEDS: ATORVASTATIN CALCIUM 40 MG TABLET PO SCH (22:23)
[2017-09-28] MEDS: CLOBETASOL PROPIONATE 0.05% CREAM 15 GM TP PRN ×2 (03:44→13:09)
[2017-09-28 07:08] LABS: ANION GAP 7 (5-19); BLOOD UREA NITROGEN 21 mg/dL (7-20); CALCIUM 8.8 mg/dL (8.4-10.2); CARBON DIOXIDE 30 mmol/L (22-30); CHLORIDE 98 mmol/L (98-107); GLUCOSE 246 mg/dL (75-110); POTASSIUM 3.9 mmol/L (3.6-5.0); SODIUM 134.8 mmol/L (137-145)
[2017-09-28] MEDS ORDERED: METFORMIN HCL 500 MG TABLET PO ONE (09:00)
[2017-09-28] MEDS: ENOXAPARIN SODIUM INJ 40 MG/0.4 ML DISP.SYRIN SUBCUT SCH (09:03)
[2017-09-28] MEDS: INSULIN REG, HUMAN 100 UNIT/ML 3 ML VIAL (PYX) SUBCUT PRN ×2 (09:03→12:33)
[2017-09-28] MEDS: BUMETANIDE 1 MG TABLET PO SCH (09:04)
[2017-09-28] MEDS: ASPIRIN 81 MG TABLET, ENT COATED PO SCH (09:04)
[2017-09-28] MEDS: FAMOTIDINE 20 MG TABLET PO SCH (09:05)
[2017-09-28] MEDS: LISINOPRIL 10 MG TABLET PO SCH (09:05)
[2017-09-28] MEDS: DOCUSATE SODIUM 100 MG CAPSULE PO SCH (09:08)
[2017-09-28] MEDS ORDERED: METOPROLOL SUCCINATE 50 MG TAB.SR.24H PO SCH (10:00)
[2017-09-28 12:48] VITALS: BP 137/78
--- NOTE | 2017-09-28 14:05 | PDOC PROGRESS REPORT ---
Subjective Progress Note for:: 09/28/17 Subjective:: Worked with PT today. Feeling stronger. Reason For Visit: ACUTE ON CHRONIC SYSTOLIC CONGESTIVE HEART FAILURE Physical Exam Vital Signs: Temp Pulse Resp BP Pulse Ox 98.1 F 75 18 137/78 H 100 09/28/17 11:02 09/28/17 12:47 09/28/17 11:02 09/28/17 12:47 09/28/17 11:02 Intake & Output 09/27/17 09/28/17 09/29/17 06:59 06:59 06:59 Intake Total 2120 880 Output Total 2150 1150 Balance -30 -270 Weight 113.2 kg 108.2 kg General appearance: PRESENT: no acute distress Eye exam: PRESENT: EOMI, PERRLA Respiratory exam: PRESENT: clear to auscultation bernardo. ABSENT: rales, rhonchi, wheezes Cardiovascular exam: PRESENT: RRR. ABSENT: diastolic murmur, rubs, systolic murmur Neurological exam: PRESENT: alert, awake, oriented to person, oriented to place , oriented to time, oriented to situation, CN II-XII grossly intact, motor sensory deficit - decreased left sided strength Skin exam: PRESENT: other - multiple psoriatic plaques Results Laboratory Results: 09/28/17 06:16 09/28/17 06:16 Sodium 134.8 L Potassium 3.9 Chloride 98 Carbon Dioxide 30 Anion Gap 7 BUN 21 H Creatinine 1.01 Est GFR ( Amer) > 60 Est GFR (Non-Af Amer) > 60 Glucose 246 H Calcium 8.8 09/25/17 05:48 Troponin I 0.022 Impressions: Chest X-Ray 09/25/17 00:00 IMPRESSION: 1. Cardiomegaly with pulmonary vascular congestion. Head CT 09/25/17 00:00 IMPRESSION: 1. No acute intracranial abnormality identified by CT criteria. If there is continued concern for acute ischemic change MRI could provide additional characterization. This exam was performed according to our departmental dose-optimization program, which includes automated exposure control, adjustment of the mA and/or kV according to patient size and/or use of iterative reconstruction technique. Assessment & Plan - Diagnosis (1) Acute on chronic combined systolic (congestive) and diastolic (congestive) heart failure Is this a current diagnosis for this admission?: Yes Plan: Clinically, he is asymptomatic. (2) Coronary artery disease Is this a current diagnosis for this admission?: Yes Plan: Stable (3) Diabetes mellitus Qualifiers: Diabetes mellitus type: type 2 Diabetes mellitus complication status: with unspecified complications Is this a current diagnosis for this admission?: Yes Plan: Suboptimal BG. But, he does not comply with a diabetic diet. He has been seen receiving food from local restaurants, ie. [employer] (4) HLD (hyperlipidemia) Qualifiers: Hyperlipidemia type: other hyperlipidemia Qualified Code(s): E78.4 - Other hyperlipidemia Is this a current diagnosis for this admission?: Yes Plan: Continue statin (5) Plaque psoriasis Is this a current diagnosis for this admission?: Yes Plan: Resume steroid cream (6) Pulmonary hypertension Is this a current diagnosis for this admission?: Yes Plan: Stable (7) S/P VSD closure Is this a current diagnosis for this admission?: Yes (8) Uncontrolled hypertension Is this a current diagnosis for this admission?: Yes Plan: BP up. Increase Toprol to 100 mg daily (9) Left hemiparesis Is this a current diagnosis for this admission?: Yes Plan: Transfer to [facility] today. - Time Time Spent with patient: 15-24 minutes Medications reviewed and adjusted accordingly: Yes Anticipated discharge: [facility] - Inpatient Certification Based on my medical assessment, after consideration of the patient's comorbidities, presenting symptoms, or acuity I expect that the services needed warrant INPATIENT care.: Yes I certify that my determination is in accordance with my understanding of Medicare's requirements for reasonable and necessary INPATIENT services [42 CFR 412.3e].: Yes Medical Necessity: Significant Comorbidiites Make Outpatient Treatment Too Risky
[2017-09-28] MEDS ORDERED: METFORMIN HCL 500 MG TABLET PO SCH (16:00)
[2017-10-02] MEDS ORDERED: METHOTREXATE SODIUM 2.5 MG TABLET PO SCH (10:00)
== END 2017-09-28 16:57 | disposition short-term general hospital (02) | DRG 292 ==
LOC: ER 23:19 → EH 09-25 03:18 → 5 09-25 07:31 → ICU 09-25 23:05 → 3S 09-26 16:03
PROVIDERS: ADMIT Internal Medicine; ATTEND Internal Medicine
PROC: 3E0F73Z Introduction of Anti-inflammatory into Respiratory Tract, Via Natural or Artificial Opening (ICD-10-PCS; principal; 2017-09-25)
DX: I11.0 Hypertensive heart disease with heart failure (principal); G81.94 Hemiplegia, unspecified affecting left nondominant side; I50.43 Acute on chronic combined systolic (congestive) and diastolic (congestive) heart failure; I25.10 Atherosclerotic heart disease of native coronary artery without angina pectoris; E11.9 Type 2 diabetes mellitus without complications; E78.00 Pure hypercholesterolemia, unspecified; L40.0 Psoriasis vulgaris; I27.20 Pulmonary hypertension, unspecified; R01.1 Cardiac murmur, unspecified; E78.5 Hyperlipidemia, unspecified; K21.9 Gastro-esophageal reflux disease without esophagitis; M19.90 Unspecified osteoarthritis, unspecified site; L30.9 Dermatitis, unspecified; L40.9 Psoriasis, unspecified; I25.2 Old myocardial infarction; Z79.899 Other long term (current) drug therapy; Z88.8 Allergy status to other drugs, medicaments and biological substances; Z88.6 Allergy status to analgesic agent; Z91.013 Allergy to seafood; Z86.718 Personal history of other venous thrombosis and embolism; Z82.61 Family history of arthritis; Z82.49 Family history of ischemic heart disease and other diseases of the circulatory system; Z82.3 Family history of stroke; Z83.3 Family history of diabetes mellitus; Z80.9 Family history of malignant neoplasm, unspecified
CPT/HCPCS: 36415; 70450; 71046; 80048; 80053; 82550; 82553; 82962; 83735; 83880; 84484; 85025; 93005; 93010; 94640; 96374; 99285; G8978-GP; G8979-GP; J0171; J0360; J1200; J1650; J1815; J2930; J3490; S0119

== ENCOUNTER 2018-01-15 01:34 | Emergency (ER) | payer MEDICARE ==
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
[2018-01-15] MEDS ORDERED: HYDROCODONE/ACETAMINOPHEN 5-325 MG (6 TAB/ER DISP) PO PRN (05:40)
[2018-01-15] MEDS: HYDROCODONE/ACETAMINOPHEN 5-325 MG TABLET PO ONE (05:41)
[2018-01-15] MEDS: HYDRALAZINE HCL INJ/PF 20 MG/1 ML SDV IV ONE (05:43)
[2018-01-15] MEDS: CYCLOBENZAPRINE HCL 10 MG TABLET PO ONE (05:43)
[2018-01-15] MEDS: KETOROLAC TROMETHAMINE INJ/PF 30 MG/1 ML SDV IV ONE (05:43)
[2018-01-15 06:30] VITALS: BP 174/120
== END 2018-01-15 06:30 | disposition home or self-care (01) ==
LOC: ER 01:34
DX: S16.1XXA Strain of muscle, fascia and tendon at neck level, initial encounter (principal); S39.012A Strain of muscle, fascia and tendon of lower back, initial encounter; V49.9XXA Car occupant (driver) (passenger) injured in unspecified traffic accident, initial encounter; R11.10 Vomiting, unspecified; R51 Headache; R20.0 Anesthesia of skin; R06.02 Shortness of breath; I25.10 Atherosclerotic heart disease of native coronary artery without angina pectoris; E11.9 Type 2 diabetes mellitus without complications; Z79.84 Long term (current) use of oral hypoglycemic drugs; I10 Essential (primary) hypertension; L40.9 Psoriasis, unspecified; L30.9 Dermatitis, unspecified; Z79.899 Other long term (current) drug therapy; Z79.82 Long term (current) use of aspirin; I25.2 Old myocardial infarction; Z91.013 Allergy to seafood; Z88.5 Allergy status to narcotic agent; Z88.8 Allergy status to other drugs, medicaments and biological substances
CPT/HCPCS: 99283; 96374; 96375; 71101; A9270 ×3; J0360; J1885

== ENCOUNTER 2018-01-15 16:45 | Emergency (ER) | payer OTHER, MEDICARE ==
--- NOTE | 2018-01-15 18:13 | ER Document Report ---
ED Blood Pressure Problem - General Chief Complaint: High Blood Pressure Stated Complaint: BLOOD PRESSURE ISSUE/DIZZINESS Time Seen by Provider: 01/15/18 18:09 Mode of Arrival: Ambulatory Information source: Patient Notes: Chief complaint: Elevated blood pressure History of complain:( obtained from----patient) 47 years old male was seen this morning here in the ED for high blood pressure which was controlled and discharged home. He went home slipped before that took some ibuprofen for headache, woke up and went to the chiropractor's office. That his pressure was found to be systole 204 and diastole 138, they refused to do any procedures send him over to the ED. He supposed to take 3 blood pressure medicine this morning but took only one. He currently has no currently has no headache no symptoms. On arrival his blood pressure was 187/129. Denies any chest pain shortness of breath Onset: As above Duration: As above Severity: Moderate Quality: Unknown Context: High blood pressure Exacerbating factor and relieving factors: REVIEW OF SYSTEMS: CONSTITUTIONAL : Denies fever, chills, or sweats. Denies recent illness. EENT: Denies eye, ear, throat, or mouth pain or symptoms. Denies nasal or sinus congestion or discharge. Denies throat, tongue, or mouth swelling or difficulty swallowing. CARDIOVASCULAR: Denies chest pain. Denies palpitations or racing or irregular heart beat. Denies ankle edema. RESPIRATORY: Denies cough, cold, or chest congestion. Denies shortness of breath, difficulty breathing, or wheezing. GASTROINTESTINAL: Denies distention. Denies nausea, vomiting, or diarrhea. Denies blood in vomitus, stools, or per rectum. Denies black, tarry stools. Denies constipation. GENITOURINARY: Denies difficulty urinating, painful urination, burning, frequency, blood in urine, or discharge. FEMALE GENITOURINARY: Denies vaginal bleeding, heavy or abnormal periods, irregular periods. Denies vaginal discharge or odor. MUSCULOSKELETAL: Denies back or neck pain or stiffness. Denies joint pain or swelling. SKIN: Denies rash, lesions or sores. HEMATOLOGIC : Denies easy bruising or bleeding. LYMPHATIC: Denies swollen, enlarged glands. NEUROLOGICAL: Denies confusion or altered mental status. Denies passing out or loss of consciousness. Denies dizziness or lightheadedness. Denies headache. Denies weakness or paralysis or loss of use of either side. Denies problems with gait or speech. Denies sensory loss, numbness, or tingling. Denies seizures. PSYCHIATRIC: Denies anxiety or stress. Denies depression, suicidal ideation, or homicidal ideation. ALL OTHER SYSTEMS REVIEWED AND NEGATIVE. PHYSICAL EXAMINATION: GENERAL: Well-appearing, well-nourished and in no acute distress. HEAD: Atraumatic, normocephalic. EYES: Pupils equal round and reactive to light, extraocular movements intact, conjunctiva are normal. ENT: Nares patent, oropharynx clear without exudates. Moist mucous membranes. NECK: Normal range of motion, supple without lymphadenopathy LUNGS: Breath sounds clear to auscultation bilaterally and equal. No wheezes rales or rhonchi. HEART: Regular rate and rhythm, ejection systolic murmur murmurs ABDOMEN: Soft, nontender, nondistended abdomen. No guarding, no rebound. No masses appreciated. Examination of genitals-deferred Musculoskeletal: Normal range of motion, no pitting or edema. No cyanosis. NEUROLOGICAL: Cranial nerves grossly intact. Normal speech, normal gait. Normal sensory, motor exams PSYCH: Normal mood, normal affect. SKIN: Warm, Dry, normal turgor, no rashes or lesions noted. Dictation was performed using [employer] voice recognition software TRAVEL OUTSIDE OF THE [place] IN LAST 30 DAYS: No COUNTRY TRAVELED TO/FROM: [facility] Patient complains to provider of: High blood pressure Notes: Dictated - Related Data Allergies/Adverse Reactions: iodine [Iodine] Allergy (Severe, Verified 01/15/18 16:47) SWELLING Shellfish * [Shellfish] Allergy (Severe, Verified 01/15/18 16:47) Anaphylaxis morphine [Morphine] Allergy (Mild, Verified 01/15/18 16:47) diazepam [From Valium] Allergy (Verified 01/15/18 16:47) furosemide [From Lasix] Allergy (Verified 01/15/18 16:47) Past Medical History - Social History Smoking Status: Never Smoker Cigarette use (# per day): No Chew tobacco use (# tins/day): No Smoking Education Provided: No Frequency of alcohol use: Rare Drug Abuse: None Lives with: Family Family History: Reviewed & Not Pertinent, Arthritis, CAD, CVA, DM, Hyperlipidemia, Hypertension, Malignancy, Other Patient has suicidal ideation: No Patient has homicidal ideation: No - Past Medical History Cardiac Medical History: Reports: Hx Congestive Heart Failure, Hx Coronary Artery Disease, Hx DVT - right leg., Hx Heart Attack, Hx Hypercholesterolemia, Hx Hypertension, Hx Heart Murmur Pulmonary Medical History: Reports: Hx Pneumonia Denies: Hx Asthma, Hx COPD, Hx Tuberculosis Neurological Medical History: Reports: Hx Cerebrovascular Accident - Lt sided weakness, Hx Migraine, Hx Seizures Endocrine Medical History: Reports: Hx Diabetes Mellitus Type 1, Hx Diabetes Mellitus Type 2. Denies: Hx Hyperthyroidism, Hx Hypothyroidism Renal/ Medical History: Reports: Hx Kidney Stones. Denies: Hx Peritoneal Dialysis GI Medical History: Reports: Hx Gastroesophageal Reflux Disease. Denies: Hx Cirrhosis, Hx Hepatitis Musculoskeletal Medical History: Reports Hx Arthritis, Reports Hx Muscle Weakness - Left Skin Medical History: Reports Hx Eczema, Denies Hx MRSA, Reports Hx Psoriasis Psychiatric Medical History: Denies: Hx Depression, Hx Schizoaffective Disorder Infectious Medical History: Denies: Hx Hepatitis, Hx MRSA Past Surgical History: Reports: Hx Cardiac Catheterization, Hx Cardiac Surgery - VSD having four previous surgeries as a child; heart valve defect, Hx Open Heart Surgery - VSD having five previous surgeries as a child; heart valve defect, Hx Vascular Surgery - Stents in right leg, Other - 4 separate operations for ventricular septal defect as a child.. Denies: Hx Pacemaker - Immunizations Immunizations up to date: Yes Hx Diphtheria, Pertussis, Tetanus Vaccination: Yes Hx Pneumococcal Vaccination: 03/24/13 Review of Systems - Review of Systems Notes: Dictated Physical Exam - Vital signs Vitals: Temp Pulse Resp BP Pulse Ox 98.3 F 95 16 187/129 H 97 01/15/18 17:02 01/15/18 17:02 01/15/18 17:02 01/15/18 17:02 01/15/18 17:02 - Notes Notes: Dictated Course - Vital Signs Vital signs: Temp Pulse Resp BP Pulse Ox 98.3 F 95 16 187/129 H 97 01/15/18 17:02 01/15/18 17:02 01/15/18 17:02 01/15/18 17:02 01/15/18 17:02 Discharge - Discharge Referrals: LOCALMD,NO [Primary Care Provider] - Follow up as needed
[2018-01-15] MEDS ORDERED: CLONIDINE HCL 0.2 MG TABLET PO ONE (18:25)
[2018-01-15] MEDS ORDERED: HYDRALAZINE HCL INJ/PF 20 MG/1 ML SDV IV ONE (19:21)
[2018-01-15] MEDS ORDERED: AMLODIPINE BESYLATE 10 MG TABLET PO ONE (21:12)
--- NOTE | 2018-01-15 21:18 | ER Document Report ---
ED General - General Chief Complaint: High Blood Pressure Stated Complaint: BLOOD PRESSURE ISSUE/DIZZINESS Time Seen by Provider: 01/15/18 18:09 Mode of Arrival: Ambulatory Information source: Patient Notes: This is a 47-year-old man with a history of poorly controlled hypertension, CVA with a recent admission to [facility] in November who was referred to the emergency room from the chiropractor's office because of uncontrolled hypertension (204/ 138). Patient was evaluated for back pain in the emergency room last night and discharged. He states that when he went to the chiropractor today, the blood pressure was elevated and was referred here. He denies chest pain or shortness of breath. He states that he ran out of his medicines 3 days ago. He states that he was on a fairly large medicine regimen from [facility] and has a list of 9 blood pressure medicines. He states he ran out of all of them. He states he is trying to get into a primary care physician. TRAVEL OUTSIDE OF THE [place] IN LAST 30 DAYS: No COUNTRY TRAVELED TO/FROM: [facility] Onset: Last week Onset/Duration: Gradual Quality of pain: No pain Severity: None Pain Level: Denies Associated symptoms: denies: Chest pain, Fever, Shortness of breath Exacerbated by: Denies Relieved by: Denies Similar symptoms previously: Yes Recently seen / treated by doctor: Yes - Related Data Allergies/Adverse Reactions: iodine [Iodine] Allergy (Severe, Verified 01/15/18 16:47) SWELLING Shellfish * [Shellfish] Allergy (Severe, Verified 01/15/18 16:47) Anaphylaxis morphine [Morphine] Allergy (Mild, Verified 01/15/18 16:47) diazepam [From Valium] Allergy (Verified 01/15/18 16:47) furosemide [From Lasix] Allergy (Verified 01/15/18 16:47) Past Medical History - General Information source: Patient - Social History Smoking Status: Never Smoker Cigarette use (# per day): No Chew tobacco use (# tins/day): No Frequency of alcohol use: Rare Drug Abuse: None Lives with: Family Family History: Reviewed & Not Pertinent, Arthritis, CAD, CVA, DM, Hyperlipidemia, Hypertension, Malignancy, Other Patient has suicidal ideation: No Patient has homicidal ideation: No - Past Medical History Cardiac Medical History: Reports: Hx Congestive Heart Failure, Hx Coronary Artery Disease, Hx DVT - right leg., Hx Heart Attack, Hx Hypercholesterolemia, Hx Hypertension, Hx Heart Murmur Pulmonary Medical History: Reports: Hx Pneumonia Denies: Hx Asthma, Hx COPD, Hx Tuberculosis Neurological Medical History: Reports: Hx Cerebrovascular Accident - Lt sided weakness, Hx Migraine, Hx Seizures Endocrine Medical History: Reports: Hx Diabetes Mellitus Type 1, Hx Diabetes Mellitus Type 2. Denies: Hx Hyperthyroidism, Hx Hypothyroidism Renal/ Medical History: Reports: Hx Kidney Stones. Denies: Hx Peritoneal Dialysis GI Medical History: Reports: Hx Gastroesophageal Reflux Disease. Denies: Hx Cirrhosis, Hx Hepatitis Musculoskeletal Medical History: Reports Hx Arthritis, Reports Hx Muscle Weakness - Left Skin Medical History: Reports Hx Eczema, Denies Hx MRSA, Reports Hx Psoriasis Psychiatric Medical History: Denies: Hx Depression, Hx Schizoaffective Disorder Infectious Medical History: Denies: Hx Hepatitis, Hx MRSA Past Surgical History: Reports: Hx Cardiac Catheterization, Hx Cardiac Surgery - VSD having four previous surgeries as a child; heart valve defect, Hx Open Heart Surgery - VSD having five previous surgeries as a child; heart valve defect, Hx Vascular Surgery - Stents in right leg, Other - 4 separate operations for ventricular septal defect as a child.. Denies: Hx Pacemaker - Immunizations Immunizations up to date: Yes Hx Diphtheria, Pertussis, Tetanus Vaccination: Yes Hx Pneumococcal Vaccination: 03/24/13 Review of Systems - Review of Systems Constitutional: denies: Chills, Fever EENT: No symptoms reported Cardiovascular: denies: Chest pain, Orthopnea, Edema Respiratory: denies: Hemoptysis, Short of breath Gastrointestinal: No symptoms reported Genitourinary: No symptoms reported Male Genitourinary: No symptoms reported Musculoskeletal: No symptoms reported Skin: No symptoms reported, Other - She does have chronic skin issues Hematologic/Lymphatic: No symptoms reported Neurological/Psychological: No symptoms reported Physical Exam - Vital signs Vitals: Temp Pulse Resp BP Pulse Ox 98.3 F 95 16 187/129 H 97 01/15/18 17:02 01/15/18 17:02 01/15/18 17:02 01/15/18 17:02 01/15/18 17:02 Notes: Physical exam: GENERAL: 7-year-old man, alert and oriented 3, no acute distress. Patient's blood pressure is 150/99 after IV hydralazine HEAD: Atraumatic, normocephalic. EYES: Pupils equal round and reactive to light, extraocular movements intact, sclera anicteric, conjunctiva are normal. ENT: TMs normal, nares patent, oropharynx clear without exudates. Moist mucous membranes. NECK: Normal range of motion, supple without obvious mass or JVD. LUNGS: Breath sounds clear to auscultation bilaterally and equal. No wheezes rales or rhonchi. HEART: Regular rate and rhythm without murmurs, rubs or gallops. ABDOMEN: Soft, normoactive bowel sounds. No tenderness to palpation. No guarding, no rebound. No masses appreciated. EXTREMITIES: Normal range of motion, no pitting or edema. No clubbing or cyanosis. NEUROLOGICAL: Cranial nerves II through XII grossly intact. Normal speech, moving all extremities. PSYCH: Normal mood, normal affect. SKIN: Warm, Dry, normal turgor, no rashes or lesions noted. Course - Re-evaluation Re-evalutation: 01/15/18 21:18 [facility] contacted to confirm medicine list that the patient has with him. I did get many records from [facility], fortunately it was not from the last admission. I was able to confirm many of the medicines, and I gave prescriptions for the ones I could definitely confirm. I have given the patient follow-up numbers for him to get a primary care doctor. 01/16/18 03:28 - Vital Signs Vital signs: Temp Pulse Resp BP Pulse Ox 97.7 F 92 18 144/91 H 98 01/16/18 01:43 01/15/18 19:20 01/16/18 01:43 01/16/18 01:43 01/16/18 01:43 - Laboratory Result Diagrams: 01/15/18 22:25 01/15/18 22:25 Laboratory results interpreted by me: 01/15/18 01/15/18 22:25 22:25 Hgb 12.8 L RDW 16.0 H Sodium 136.4 L Glucose 169 H AST 14 L Discharge - Discharge Clinical Impression: Hypertension Condition: Stable Disposition: HOME-ASSISTED LIVING Additional Instructions: It is very important not to go without your medicines. I want you to follow-up with her primary care doctor: Call the offices tomorrow below of the 3 to get an appointment. Recommendations: It is recommended to followup with a primary care doctor within the next 2 days. If you do not have a primary care doctor or you are unable to get an apointment during that time, I left the number for some internal medicine physicians that are [facility] Dr. Ray Sagastume [address], [place] [phone] Dr Barraza Address: [address] [place] [address] [place] [address] Dr Noriega Address: [address] [place] [address] [place] [address] Into the emergency room for any chest pain shortness of breath, worsening headache or any concerns or getting worse. Prescriptions: Atorvastatin Calcium [Lipitor 80 mg Tablet] 80 mg PO QHS #30 tablet Amlodipine Besylate 10 mg PO DAILY #30 tab Bumetanide [Bumex 2 mg Tablet] 1 tab PO DAILY #30 tab Isosorbide Dinitrate [Isosorbide Dinitrate ER] 40 mg PO DAILY #30 tablet.er Valsartan 160 mg PO BID #60 tablet Referrals: LOCALMD,NO [NO LOCAL MD] - Follow up as needed
[2018-01-15 22:37] LABS: ABSOLUTE EOSINOPHILS # (AUTO) 0.1 10^3/uL (0.0-0.6); ABSOLUTE LYMPHOCYTES (AUTO) 1.3 10^3/uL (0.5-4.7); ABSOLUTE MONOCYTES (AUTO) 0.2 10^3/uL (0.1-1.4); ABSOLUTE NEUT (AUTO) 2.6 10^3/uL (1.7-8.2); BASOPHILS % (AUTO) 0.4 % (0-2); EOSINOPHILS % (AUTO) 2.3 % (0-6); HEMATOCRIT 38.3 % (37.9-51.0); HEMOGLOBIN 12.8 g/dL (13.5-17.0); LYMPHOCYTES % (AUTO) 30.1 % (13-45); MEAN CORPUSCULAR HEMOGLOBIN 27.6 pg (27.0-33.4); MEAN CORPUSCULAR HGB CONC 33.3 g/dL (32.0-36.0); MEAN CORPUSCULAR VOLUME 83 fl (80-97); MONOCYTES % (AUTO) 5.5 % (3-13); PLATELET COUNT 316 10^3/uL (150-450); RED BLOOD COUNT 4.63 10^6/uL (4.35-5.55); SEGMENTED NEUTROPHILS % (AUTO) 61.7 % (42-78); TOTAL CELLS COUNTED % (AUTO) 100 %; WHITE BLOOD COUNT 4.3 10^3/uL (4.0-10.5)
[2018-01-15 22:49] LABS: ALANINE AMINOTRANSFERASE 26 U/L (21-72); ALBUMIN 3.6 g/dL (3.5-5.0); ALKALINE PHOSPHATASE 106 U/L (38-126); ANION GAP 9 (5-19); ASPARTATE AMINO TRANSFERASE 14 U/L (17-59); BILIRUBIN,DIRECT 0.2 mg/dL (0.0-0.4); BILIRUBIN,TOTAL 0.4 mg/dL (0.2-1.3); BLOOD UREA NITROGEN 17 mg/dL (7-20); CALCIUM 9.2 mg/dL (8.4-10.2); CARBON DIOXIDE 27 mmol/L (22-30); CHLORIDE 100 mmol/L (98-107); GLUCOSE 169 mg/dL (75-110); SODIUM 136.4 mmol/L (137-145); TOTAL PROTEIN 7.4 g/dL (6.3-8.2)
[2018-01-16 01:56] VITALS: BP 144/91
== END 2018-01-16 01:45 | disposition home health service (06) ==
LOC: ER 16:45
DX: I11.0 Hypertensive heart disease with heart failure (principal); I50.9 Heart failure, unspecified; E78.00 Pure hypercholesterolemia, unspecified; I25.10 Atherosclerotic heart disease of native coronary artery without angina pectoris; T46.5X6A Underdosing of other antihypertensive drugs, initial encounter; T46.1X6A Underdosing of calcium-channel blockers, initial encounter; T50.1X6A Underdosing of loop [high-ceiling] diuretics, initial encounter; T46.3X6A Underdosing of coronary vasodilators, initial encounter; T46.6X6A Underdosing of antihyperlipidemic and antiarteriosclerotic drugs, initial encounter; Z91.128 Patient's intentional underdosing of medication regimen for other reason; Z91.14 Patient's other noncompliance with medication regimen; E11.9 Type 2 diabetes mellitus without complications; L98.9 Disorder of the skin and subcutaneous tissue, unspecified; Z86.73 Personal history of transient ischemic attack (TIA), and cerebral infarction without residual deficits; Z88.5 Allergy status to narcotic agent; Z88.8 Allergy status to other drugs, medicaments and biological substances; Z87.892 Personal history of anaphylaxis; Z91.013 Allergy to seafood
CPT/HCPCS: 99284; 96374; 36415; 85025; 80053; J0360

== ENCOUNTER 2018-03-05 20:26 | Emergency (ER) | payer MEDICARE ==
[2018-03-05 20:44] VITALS: BP 193/118
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
--- NOTE | 2018-03-05 22:16 | RADIOLOGY REPORT (SQ) ---
XR CHEST 1 VIEW HISTORY: Shortness of breath. COMPARISON: 01/15/2018 FINDINGS/IMPRESSION: Moderate cardiomegaly with pulmonary vascular congestion. Lungs are clear. No pleural effusion or pneumothorax is seen. Status post median sternotomy.
--- NOTE | 2018-03-06 00:21 | EKG REPORT ---
SEVERITY:- ABNORMAL ECG - SINUS RHYTHM VENTRICULAR PREMATURE COMPLEX PROBABLE LEFT ATRIAL ABNORMALITY LEFT ANTERIOR FASCICULAR BLOCK ABNORMAL T, CONSIDER ISCHEMIA, LATERAL LEADS BORDERLINE PROLONGED QT INTERVAL : Confirmed by: Jenifer Khan 06-Mar-2018 00:20:54
== END 2018-03-05 22:00 | disposition left against medical advice (07) ==
LOC: ER 20:26
DX: R06.02 Shortness of breath (principal); I10 Essential (primary) hypertension; I25.10 Atherosclerotic heart disease of native coronary artery without angina pectoris; F11.20 Opioid dependence, uncomplicated; Z59.0 Homelessness; Z86.73 Personal history of transient ischemic attack (TIA), and cerebral infarction without residual deficits; Z91.19 Patient's noncompliance with other medical treatment and regimen
CPT/HCPCS: 71045; 93005; 93010; 99285

== ENCOUNTER 2018-03-17 11:09 | Inpatient (IN) | payer MEDICARE ==
--- NOTE | 2018-03-17 12:34 | RADIOLOGY REPORT (SQ) ---
EXAM DESCRIPTION: CHEST 2 VIEWS COMPLETED DATE/TIME: 03/17/2018 11:47 am REASON FOR STUDY: cp COMPARISON: 09/25/2017 NUMBER OF VIEWS: Two views. TECHNIQUE: Frontal and lateral radiographic views of the chest acquired. LIMITATIONS: None. FINDINGS: LUNGS AND PLEURA: No opacities, masses or pneumothorax. No pleural effusion. MEDIASTINUM AND HILAR STRUCTURES: No masses or contour abnormality. HEART AND VASCULAR STRUCTURES: Cardiac enlargement. Vascular congestion. BONES: No acute findings. HARDWARE: Sternotomy. OTHER: No other significant finding. IMPRESSION: CARDIAC ENLARGEMENT. VASCULAR CONGESTION. TECHNICAL DOCUMENTATION: JOB ID: [id number] [employer]- All Rights Reserved Reading location - IP/workstation name: [email or web address]
[2018-03-17] MEDS ORDERED: ASPIRIN 81 MG TABLET, CHEWABLE PO ONE (17:39)
[2018-03-17] MEDS ORDERED: BUMETANIDE INJ/PF 1 MG/4 ML SDV IV ONE (17:47)
[2018-03-17] MEDS ORDERED: METOLAZONE 5 MG TABLET PO ONE (17:50)
--- NOTE | 2018-03-17 17:51 | ER Document Report ---
ED Medical Screen (RME) - General Chief Complaint: Chest Pain > 30 Stated Complaint: CHEST PAIN Time Seen by Provider: 03/17/18 17:39 TRAVEL OUTSIDE OF THE [place] IN LAST 30 DAYS: No COUNTRY TRAVELED TO/FROM: [facility] Notes: 03/17/18 17:50 Swelling lower extremities states shortness of breath states compliant with blood pressure medication regimen PCP Dr. Noriega - Related Data Allergies/Adverse Reactions: iodine [Iodine] Allergy (Severe, Verified 03/17/18 11:10) SWELLING Shellfish * [Shellfish] Allergy (Severe, Verified 03/17/18 11:10) Anaphylaxis morphine [Morphine] Allergy (Mild, Verified 03/17/18 11:10) diazepam [From Valium] Allergy (Verified 03/17/18 11:10) furosemide [From Lasix] Allergy (Verified 03/17/18 11:10) Past Medical History - Social History Chew tobacco use (# tins/day): No Frequency of alcohol use: None Drug Abuse: None Family history: CAD - Past Medical History Cardiac Medical History: Reports: Hx Congestive Heart Failure, Hx Coronary Artery Disease, Hx DVT - right leg., Hx Heart Attack, Hx Hypercholesterolemia, Hx Hypertension, Hx Heart Murmur Pulmonary Medical History: Reports: Hx Pneumonia Denies: Hx Asthma, Hx COPD, Hx Tuberculosis Neurological Medical History: Reports: Hx Cerebrovascular Accident - Lt sided weakness, Hx Migraine, Hx Seizures Endocrine Medical History: Reports: Hx Diabetes Mellitus Type 1, Hx Diabetes Mellitus Type 2. Denies: Hx Hyperthyroidism, Hx Hypothyroidism Renal/ Medical History: Reports: Hx Kidney Stones. Denies: Hx Peritoneal Dialysis GI Medical History: Reports: Hx Gastroesophageal Reflux Disease. Denies: Hx Cirrhosis, Hx Hepatitis Musculoskeltal Medical History: Reports Hx Arthritis, Reports Hx Muscle Weakness - Left Skin Medical History: Reports Hx Eczema, Denies Hx MRSA, Reports Hx Psoriasis Psychiatric Medical History: Denies: Hx Depression, Hx Schizoaffective Disorder Infectious Medical History: Denies: Hx Hepatitis, Hx MRSA Past Surgical History: Reports: Hx Cardiac Catheterization, Hx Cardiac Surgery - VSD having four previous surgeries as a child; heart valve defect, Hx Open Heart Surgery - VSD having five previous surgeries as a child; heart valve defect, Hx Vascular Surgery - Stents in right leg, Other - 4 separate operations for ventricular septal defect as a child.. Denies: Hx Pacemaker - Immunizations Immunizations up to date: Yes Hx Diphtheria, Pertussis, Tetanus Vaccination: Yes History of Influenza Vaccine for 03/2017 - 08/2017 Season: Yes Influenza Administration Date for 03/2017 - 08/2017 Season: 05/10/17 Review of Systems - Review of Systems Cardiovascular: Dyspnea, Edema Physical Exam - Vital signs Vitals: Temp Pulse Resp BP Pulse Ox 98.0 F 98 16 180/115 H 98 03/17/18 11:32 03/17/18 11:32 03/17/18 11:32 03/17/18 11:32 03/17/18 11:32 - Respiratory Respiratory status: No respiratory distress Chest status: Nontender Breath sounds: Normal Chest palpation: Normal - Cardiovascular Rhythm: Regular Heart sounds: Normal auscultation Course - Vital Signs Vital signs: Temp Pulse Resp BP Pulse Ox 98.3 F 90 18 195/128 H 98 03/17/18 17:36 03/17/18 17:36 03/17/18 17:36 03/17/18 17:36 03/17/18 17:36
[2018-03-17 18:17] LABS: INTERNATIONAL RATION (INR) 1.13; PROTHROMBIN TIME 15.1 SEC (11.4-15.4)
[2018-03-17 18:19] LABS: HEMATOCRIT 36.4 % (37.9-51.0); MEAN CORPUSCULAR HEMOGLOBIN 27.4 pg (27.0-33.4); MEAN CORPUSCULAR VOLUME 83 fl (80-97); PLATELET COUNT 291 10^3/uL (150-450); RED BLOOD COUNT 4.37 10^6/uL (4.35-5.55); RED CELL DISTRIBUTION WIDTH 16.4 % (11.5-14.0); WHITE BLOOD COUNT 5.6 10^3/uL (4.0-10.5)
[2018-03-17 18:32] LABS: ALANINE AMINOTRANSFERASE 17 U/L (21-72); ALBUMIN 3.6 g/dL (3.5-5.0); ALKALINE PHOSPHATASE 93 U/L (38-126); ANION GAP 6 (5-19); ASPARTATE AMINO TRANSFERASE 18 U/L (17-59); BILIRUBIN,DIRECT 0.4 mg/dL (0.0-0.4); BILIRUBIN,TOTAL 0.7 mg/dL (0.2-1.3); BLOOD UREA NITROGEN 15 mg/dL (7-20); CALCIUM 8.8 mg/dL (8.4-10.2); CARBON DIOXIDE 29 mmol/L (22-30); CHLORIDE 102 mmol/L (98-107); CREATINE KINASE 103 U/L (55-170); GLUCOSE 209 mg/dL (75-110); POTASSIUM 3.8 mmol/L (3.6-5.0); SODIUM 137.3 mmol/L (137-145); TOTAL PROTEIN 7.6 g/dL (6.3-8.2)
[2018-03-17 18:44] LABS: CREATINE KINASE MB 0.93 ng/mL (<4.55); TROPONIN I 0.022 ng/mL
[2018-03-17 18:46] LABS: ABSOLUTE LYMPHOCYTES# (MANUAL) 1.3 10^3/uL (0.5-4.7); ABSOLUTE MONOCYTES # (MANUAL) 0.5 10^3/uL (0.1-1.4); ABSOLUTE NEUTROPHILS# (MANUAL) 3.5 10^3/uL (1.7-8.2); BASOPHILS % (MANUAL) 0 % (0-2); EOSINOPHILS % (MANUAL) 4 % (0-6); LYMPHOCYTES % (MANUAL) 24 % (13-45); MONOCYTES % (MANUAL) 9 % (3-13); SEGMENTED NEUTROPHILS % (MAN) 63 % (42-78); TOTAL CELLS COUNTED 100
[2018-03-17 18:47] LABS: ANISOCYTOSIS 1+; HYPOCHROMASIA SLIGHT; OVALOCYTES SLIGHT; PLATELET COMMENT ADEQUATE; POIKILOCYTOSIS SLIGHT; POLYCHROMASIA SLIGHT
--- NOTE | 2018-03-17 18:58 | ER Document Report ---
ED General - General Chief Complaint: Chest Pain > 30 Stated Complaint: CHEST PAIN Time Seen by Provider: 03/17/18 17:39 Notes: Patient is a 47-year-old male with CHF, diabetes mellitus, hypertension that presents to the emergency department for chief complaint of shortness of breath , dyspnea on exertion, and leg swelling. Patient states over the last 2 days he has been having progressive shortness of breath, dyspnea on exertion and orthopnea. Is also noticed that his legs become significantly more edematous than usual. He reports being compliant with his blood pressure medications, which he takes for heart failure, and hypertension, but despite doing this he was not improving. He states he has been having issues with his blood pressure , and it has been difficult to control. He reports a history of CHF, CAD, and diabetes, also has a history of stents. Past Medical History: CHF, CAD, diabetes mellitus, hypertension, hyperlipidemia , CVA, psoriasis Past Surgical History: VSD, PCI with stenting, cardiac valve replacement Social History: Denies tobacco, alcohol or illicit drug use Family History: Reviewed and noncontributory for presenting illness Allergies: Reviewed, see documented allergy list. REVIEW OF SYSTEMS: Unless otherwise stated in this report the patient's positive and negative responses for review of systems for constitutional, eyes, ENT, cardiovascular, respiratory, gastrointestinal, neurological, genitourinary, musculoskeletal, and integumentary systems and related systems to the presenting problem are either as stated in the HPI or were not pertinent or were negative for the symptoms and/or complaints related to the presenting medical problem. PHYSICAL EXAMINATION: Vital signs reviewed, nursing noted reviewed. GENERAL: Well-appearing, well-nourished and in no acute distress. HEAD: Atraumatic, normocephalic. EYES: Eyes appear normal, extraocular movements intact, sclera anicteric, conjunctiva are normal. ENT: nares patent, oropharynx clear without exudates. Moist mucous membranes. NECK: Normal range of motion, supple without lymphadenopathy LUNGS: Breath sounds clear to auscultation bilaterally and equal. No wheezes rales or rhonchi. HEART: Regular rate and rhythm, 3+ systolic murmur noted ABDOMEN: Soft, nontender, normoactive bowel sounds. No rebound, guarding, or rigidity. No masses appreciated. EXTREMITIES: Nontender, good range of motion, bilateral 3-4+ pitting edema to the mid thighs MALE GENITAL: Scrotal edema noted, no induration, or erythema NEUROLOGICAL: No focal neurological deficits. Moves all extremities spontaneously Motor and sensory grossly intact on exam. PSYCH: Normal mood, normal affect. SKIN: Warm, Dry, normal turgor, psoriatic plaques noted bilaterally in the upper extremities and lower extremities as well as on the trunk, no bleeding, or evidence of infection. TRAVEL OUTSIDE OF THE [place] IN LAST 30 DAYS: No COUNTRY TRAVELED TO/FROM: [place] - Related Data Allergies/Adverse Reactions: iodine [Iodine] Allergy (Severe, Verified 03/17/18 11:10) SWELLING Shellfish * [Shellfish] Allergy (Severe, Verified 03/17/18 11:10) Anaphylaxis morphine [Morphine] Allergy (Mild, Verified 03/17/18 11:10) diazepam [From Valium] Allergy (Verified 03/17/18 11:10) furosemide [From Lasix] Allergy (Verified 03/17/18 11:10) Past Medical History - Social History Smoking Status: Unknown if Ever Smoked Chew tobacco use (# tins/day): No Frequency of alcohol use: None Drug Abuse: None Family History: Reviewed & Not Pertinent, Arthritis, CAD, CVA, DM, Hyperlipidemia, Hypertension, Malignancy, Other Patient has suicidal ideation: No Patient has homicidal ideation: No - Past Medical History Cardiac Medical History: Reports: Hx Congestive Heart Failure, Hx Coronary Artery Disease, Hx DVT - right leg., Hx Heart Attack, Hx Hypercholesterolemia, Hx Hypertension, Hx Heart Murmur Pulmonary Medical History: Reports: Hx Pneumonia Denies: Hx Asthma, Hx COPD, Hx Tuberculosis Neurological Medical History: Reports: Hx Cerebrovascular Accident - Lt sided weakness, Hx Migraine, Hx Seizures Endocrine Medical History: Reports: Hx Diabetes Mellitus Type 1, Hx Diabetes Mellitus Type 2. Denies: Hx Hyperthyroidism, Hx Hypothyroidism Renal/ Medical History: Reports: Hx Kidney Stones. Denies: Hx Peritoneal Dialysis GI Medical History: Reports: Hx Gastroesophageal Reflux Disease. Denies: Hx Cirrhosis, Hx Hepatitis Musculoskeletal Medical History: Reports Hx Arthritis, Reports Hx Muscle Weakness - Left Skin Medical History: Reports Hx Eczema, Denies Hx MRSA, Reports Hx Psoriasis Psychiatric Medical History: Denies: Hx Depression, Hx Schizoaffective Disorder Infectious Medical History: Denies: Hx Hepatitis, Hx MRSA Past Surgical History: Reports: Hx Cardiac Catheterization, Hx Cardiac Surgery - VSD having four previous surgeries as a child; heart valve defect, Hx Open Heart Surgery - VSD having five previous surgeries as a child; heart valve defect, Hx Vascular Surgery - Stents in right leg, Other - 4 separate operations for ventricular septal defect as a child.. Denies: Hx Pacemaker - Immunizations Immunizations up to date: Yes Hx Diphtheria, Pertussis, Tetanus Vaccination: Yes Hx Pneumococcal Vaccination: 03/24/13 Physical Exam - Vital signs Vitals: Temp Pulse Resp BP Pulse Ox 98.0 F 98 16 180/115 H 98 03/17/18 11:32 03/17/18 11:32 03/17/18 11:32 03/17/18 11:32 03/17/18 11:32 Course - Re-evaluation Re-evalutation: Patient seen and examined vital signs reviewed. Laboratory data and imaging were ordered as appropriate for the patient's presenting symptoms and complaint, with consideration of any critical or life threatening conditions that may be associated with their obtained history and exam as noted above. Patient was treated with IV Bumex, oral metolazone Results were reviewed when available and demonstrated normal renal function, BNP was over 4300, chest x-ray demonstrated vascular congestion, with cardiomegaly The patient was re-evaluated and was stable, blood pressure was improving slowly , he was on room air oxygen Evaluation was most consistent with acute on chronic combined systolic and diastolic heart failure, with hypertensive emergency resulting in his exacerbation of his heart failure. Patient's blood pressure was still elevated, markedly high diastolic pressure, therefore IV hydralazine was ordered, at 10 mg, will monitor closely. Patient was reevaluated, still markedly hypertensive, and short of breath, therefore IV verapamil 5 mg was ordered. Results were discussed with the patient at this point after careful consideration I feel that that patient should be admitted to the hospital. This was discussed with the patient that it is in the best interest for their care to be admitted for further evaluation and management. Patient agreed with this plan of care. A call was placed to the admitted physician, Dr. Noriega who graciously accepted the patient onto their service. *Note is created using voice recognition software and may contain spelling, syntax or grammatical errors. Laboratory 03/17/18 03/17/18 03/17/18 18:00 18:00 18:00 WBC 5.6 RBC 4.37 Hgb 12.0 L Hct 36.4 L MCV 83 MCH 27.4 MCHC 33.0 RDW 16.4 H Plt Count 291 Total Counted 100 Seg Neutrophils % Not Reportable Seg Neuts % (Manual) 63 Lymphocytes % Not Reportable Lymphocytes % (Manual) 24 Monocytes % Not Reportable Monocytes % (Manual) 9 Eosinophils % Not Reportable Eosinophils % (Manual) 4 Basophils % Not Reportable Basophils % (Manual) 0 Absolute Neutrophils Not Reportable Abs Neuts (Manual) 3.5 Absolute Lymphocytes Not Reportable Abs Lymphs (Manual) 1.3 Absolute Monocytes Not Reportable Abs Monocytes (Manual) 0.5 Absolute Eosinophils Not Reportable Absolute Eos (Manual) 0.2 Absolute Basophils Not Reportable Abs Basophils (Manual) 0.0 Platelet Comment ADEQUATE Polychromasia SLIGHT Hypochromasia SLIGHT Poikilocytosis SLIGHT Anisocytosis 1+ Ovalocytes SLIGHT PT 15.1 INR 1.13 Sodium 137.3 Potassium 3.8 Chloride 102 Carbon Dioxide 29 Anion Gap 6 BUN 15 Creatinine 1.17 Est GFR ( Amer) > 60 Est GFR (Non-Af Amer) > 60 Glucose 209 H Calcium 8.8 Total Bilirubin 0.7 Direct Bilirubin 0.4 Neonat Total Bilirubin Not Reportable Neonat Direct Bilirubin Not Reportable Neonat Indirect Bili Not Reportable AST 18 ALT 17 L Alkaline Phosphatase 93 Creatine Kinase 103 CK-MB (CK-2) Troponin I NT-Pro-B Natriuret Pep Total Protein 7.6 Albumin 3.6 03/17/18 18:00 WBC RBC Hgb Hct MCV MCH MCHC RDW Plt Count Total Counted Seg Neutrophils % Seg Neuts % (Manual) Lymphocytes % Lymphocytes % (Manual) Monocytes % Monocytes % (Manual) Eosinophils % Eosinophils % (Manual) Basophils % Basophils % (Manual) Absolute Neutrophils Abs Neuts (Manual) Absolute Lymphocytes Abs Lymphs (Manual) Absolute Monocytes Abs Monocytes (Manual) Absolute Eosinophils Absolute Eos (Manual) Absolute Basophils Abs Basophils (Manual) Platelet Comment Polychromasia Hypochromasia Poikilocytosis Anisocytosis Ovalocytes PT INR Sodium Potassium Chloride Carbon Dioxide Anion Gap BUN Creatinine Est GFR ( Amer) Est GFR (Non-Af Amer) Glucose Calcium Total Bilirubin Direct Bilirubin Neonat Total Bilirubin Neonat Direct Bilirubin Neonat Indirect Bili AST ALT Alkaline Phosphatase Creatine Kinase CK-MB (CK-2) 0.93 Troponin I 0.022 NT-Pro-B Natriuret Pep 4390 H Total Protein Albumin Chest X-Ray 03/17/18 00:00 IMPRESSION: CARDIAC ENLARGEMENT. VASCULAR CONGESTION. - Vital Signs Vital signs: Temp Pulse Resp BP Pulse Ox 98.3 F 90 18 195/128 H 98 03/17/18 17:36 03/17/18 17:36 03/17/18 17:36 03/17/18 17:36 03/17/18 17:36 - Laboratory Result Diagrams: 03/17/18 18:00 03/17/18 18:00 Laboratory results interpreted by me: 03/17/18 03/17/18 03/17/18 18:00 18:00 18:00 Hgb 12.0 L Hct 36.4 L RDW 16.4 H Glucose 209 H ALT 17 L NT-Pro-B Natriuret Pep 4390 H - EKG Interpretation by Me Additional EKG results interpreted by me: EKG demonstrates sinus rhythm with a ventricular rate of 89 bpm, left axis deviation, QTC 492 ms, there is T-wave inversions noted in leads I and aVL, and biphasic T waves in leads V4 through V6 this is compared with prior EKG from 05/2018, without significant change. 03/17/18 19:49 Critical Care Note - Critical Care Note Total time excluding time spent on procedures (mins): 35 Comments: Critical care time 35 minutes exclusive from separate billable procedures for a patient requiring complex medical decision making, and high potential for clinical deterioration. In a patient with acute on chronic combined systolic and diastolic heart failure, hypertensive emergency, leading to his heart failure, requiring IV antihypertensive medications, and close monitoring. Time spent obtaining history from patient or surrogate, discussions with consultants , development of treatment plan with patient or surrogate, evaluation of patient 's response to treatment, examination of patient, ordering and performing treatments and interventions, ordering and review of laboratory studies, re- evaluation of patient's condition, ordering and review of radiographic studies and review of old charts Discharge - Discharge Clinical Impression: Acute on chronic combined systolic (congestive) and diastolic (congestive) heart failure, Dyspnea on exertion, Hypertensive emergency Condition: Stable Disposition: ADMITTED INPATIENT Admitting Provider: Leann Unit Admitted: [facility]
[2018-03-17] MEDS ORDERED: NITROGLYCERIN 2% OINTMENT 1 GM PACKET TP ONE (19:04)
[2018-03-17] MEDS ORDERED: LABETALOL HCL INJ 20 MG/4 ML DISP.SYRIN IV ONE (19:29)
[2018-03-17] MEDS ORDERED: HYDRALAZINE HCL INJ/PF 20 MG/1 ML SDV IV ONE (19:40)
[2018-03-17] MEDS ORDERED: VERAPAMIL HCL INJ/PF 5 MG/2 ML SDV IV ONE (20:36)
[2018-03-17] MEDS ORDERED: GLUCAGON,HUMAN RECOMB 1 MG INJ IM PRN (21:11)
[2018-03-17] MEDS ORDERED: DEXTROSE 50%-WATER 25 GM/50 ML DISP.SYRIN IV PRN ×2 (21:11)
[2018-03-17] MEDS ORDERED: DEXTROSE 40% GEL 15 GM TUBE PO PRN ×2 (21:11)
[2018-03-17] MEDS ORDERED: NORMAL SALINE 250 ML with FUROSEMIDE 250 MG IV PRN ×2 (21:24)
--- NOTE | 2018-03-17 21:54 | EKG REPORT ---
SEVERITY:- ABNORMAL ECG - SINUS RHYTHM PROBABLE LEFT ATRIAL ABNORMALITY LEFT AXIS DEVIATION PROLONGED QT INTERVAL : Confirmed by: Loyda Fernandes MD 17-Mar-2018 21:54:14
--- NOTE | 2018-03-17 21:54 | EKG REPORT ---
SEVERITY:- ABNORMAL ECG - SINUS RHYTHM PROBABLE LEFT ATRIAL ABNORMALITY LEFT AXIS DEVIATION NONSPECIFIC T ABNORMALITIES, LATERAL LEADS BORDERLINE PROLONGED QT INTERVAL : Confirmed by: Loyda Fernandes MD 17-Mar-2018 21:54:09
[2018-03-17 22:03] LABS: LIPASE 192.6 U/L (23-300); PHOSPHORUS 3.3 mg/dL (2.5-4.5)
[2018-03-17 22:14] LABS: FREE T4 (FREE THYROXINE) 1.34 ng/dL (0.78-2.19)
[2018-03-17 22:28] LABS: THYROID STIMULATING HORMONE 1.22 uIU/mL (0.47-4.68)
[2018-03-17] MEDS: NITROGLYCERIN/D5W 50 MG/250 ML RTUINJ IV PRN (22:54)
[2018-03-17] MEDS: INSULIN LISPRO 100 UNIT/ML 3 ML VIAL SUBCUT PRN (23:03)
[2018-03-17] MEDS: HEPARIN SOD (PORCINE) 5,000 UNIT/ML 1 ML SYRINGE SUBCUT SCH (23:06)
[2018-03-17 23:10] LABS: INTERNATIONAL RATION (INR) 1.07; PARTIAL THROMBOPLASTIN TIME 31.7 SEC (23.5-35.8); PROTHROMBIN TIME 14.4 SEC (11.4-15.4)
[2018-03-17 23:33] LABS: CREATINE KINASE MB 0.84 ng/mL (<4.55); TROPONIN I 0.024 ng/mL
[2018-03-18] MEDS ORDERED: CLOBETASOL PROPIONATE 0.05% CREAM 15 GM TP PRN (01:47)
[2018-03-18] MEDS: HYDROCODONE/ACETAMINOPHEN 10-325 MG TABLET PO PRN ×2 (04:51→17:18)
[2018-03-18 05:05] LABS: ABSOLUTE EOSINOPHILS # (AUTO) 0.1 10^3/uL (0.0-0.6); ABSOLUTE LYMPHOCYTES (AUTO) 1.4 10^3/uL (0.5-4.7); ABSOLUTE MONOCYTES (AUTO) 0.3 10^3/uL (0.1-1.4); ABSOLUTE NEUT (AUTO) 4.2 10^3/uL (1.7-8.2); BASOPHILS % (AUTO) 0.8 % (0-2); HEMATOCRIT 36.7 % (37.9-51.0); HEMOGLOBIN 12.4 g/dL (13.5-17.0); LYMPHOCYTES % (AUTO) 22.5 % (13-45); MEAN CORPUSCULAR HEMOGLOBIN 28.2 pg (27.0-33.4); MEAN CORPUSCULAR HGB CONC 33.8 g/dL (32.0-36.0); MEAN CORPUSCULAR VOLUME 83 fl (80-97); MONOCYTES % (AUTO) 5.3 % (3-13); PLATELET COUNT 292 10^3/uL (150-450); RED BLOOD COUNT 4.41 10^6/uL (4.35-5.55); RED CELL DISTRIBUTION WIDTH 16.5 % (11.5-14.0); SEGMENTED NEUTROPHILS % (AUTO) 69.4 % (42-78); TOTAL CELLS COUNTED % (AUTO) 100 %; WHITE BLOOD COUNT 6.1 10^3/uL (4.0-10.5)
[2018-03-18 05:20] LABS: BLOOD UREA NITROGEN 18 mg/dL (7-20); CALCIUM 9.3 mg/dL (8.4-10.2); CHLORIDE 97 mmol/L (98-107); GLUCOSE 199 mg/dL (75-110); POTASSIUM 3.5 mmol/L (3.6-5.0)
[2018-03-18 05:21] LABS: ALANINE AMINOTRANSFERASE 21 U/L (21-72); ALBUMIN 3.5 g/dL (3.5-5.0); ALKALINE PHOSPHATASE 108 U/L (38-126); ANION GAP 7 (5-19); ASPARTATE AMINO TRANSFERASE 16 U/L (17-59); BILIRUBIN,DIRECT 0.5 mg/dL (0.0-0.4); BILIRUBIN,TOTAL 0.8 mg/dL (0.2-1.3); CARBON DIOXIDE 30 mmol/L (22-30); CHOLESTEROL 181.88 mg/dL (0-200); SODIUM 134.3 mmol/L (137-145); TOTAL PROTEIN 7.3 g/dL (6.3-8.2); TRIGLYCERIDES 98 mg/dL (<150)
[2018-03-18 05:30] LABS: CREATINE KINASE MB 0.8 ng/mL (<4.55); TROPONIN I 0.025 ng/mL
[2018-03-18 05:31] LABS: DIRECT LDL 112 mg/dL (<100)
[2018-03-18] MEDS ORDERED: LISINOPRIL 10 MG TABLET PO ONE (06:15)
[2018-03-18] MEDS: HEPARIN SOD (PORCINE) 5,000 UNIT/ML 1 ML SYRINGE SUBCUT SCH ×2 (06:44→14:00)
[2018-03-18] MEDS ORDERED: AMLODIPINE BESYLATE 10 MG TABLET PO ONE (07:00)
[2018-03-18] MEDS ORDERED: CARVEDILOL 12.5 MG TABLET PO ONE (07:00)
[2018-03-18] MEDS: METFORMIN HCL 500 MG TABLET PO SCH ×2 (07:48→17:15)
[2018-03-18] MEDS: INSULIN LISPRO 100 UNIT/ML 3 ML VIAL SUBCUT PRN ×2 (07:50→12:07)
[2018-03-18] MEDS ORDERED: CARVEDILOL 12.5 MG TABLET PO SCH (10:00)
[2018-03-18] MEDS ORDERED: AMLODIPINE BESYLATE 10 MG TABLET PO SCH (10:00)
[2018-03-18] MEDS: CYCLOBENZAPRINE HCL 10 MG TABLET PO SCH ×3 (10:01→17:15)
[2018-03-18] MEDS: ASPIRIN 81 MG TABLET, ENT COATED PO SCH (10:01)
[2018-03-18] MEDS: ISOSORBIDE MONONITRATE 60 MG TAB.ER.24H PO SCH (10:01)
[2018-03-18] MEDS: LISINOPRIL 10 MG TABLET PO SCH (10:01)
[2018-03-18] MEDS: INSULIN LISPRO 100 UNIT/ML 3 ML VIAL SUBCUT SCH (10:02)
[2018-03-18 10:53] LABS: CREATINE KINASE MB 0.71 ng/mL (<4.55); TROPONIN I 0.023 ng/mL
[2018-03-18 13:45] LABS: APPEARANCE,URINE CLEAR; BILIRUBIN,URINE NEGATIVE (NEGATIVE); COLOR,URINE YELLOW; GLUCOSE, URINE NEGATIVE (NEGATIVE); KETONES,URINE NEGATIVE (NEGATIVE); LEUKOCYTE ESTERASE,URINE NEGATIVE (NEGATIVE); NITRITE,URINE NEGATIVE (NEGATIVE); PROTEIN,URINE 100 mg/dL (NEGATIVE); URINE SPECIFIC GRAVITY 1.016; UROBILINOGEN,URINE NEGATIVE mg/dL (<2.0)
[2018-03-18 14:05] LABS: URINE AMPHETAMINES SCREEN NEGATIVE; URINE BARBITURATES SCREEN NEGATIVE; URINE BENZODIAZEPINES SCREEN NEGATIVE; URINE COCAINE SCREEN NEGATIVE; URINE MARIJUANA (THC) SCREEN NEGATIVE; URINE METHADONE SCREEN NEGATIVE; URINE PHENCYCLIDINE SCREEN NEGATIVE
--- NOTE | 2018-03-18 17:00 | EKG REPORT ---
SEVERITY:- ABNORMAL ECG - SINUS RHYTHM LEFT ATRIAL ABNORMALITY LEFT VENTRICULAR HYPERTROPHY ABNORMAL T, CONSIDER ISCHEMIA, LATERAL LEADS BORDERLINE PROLONGED QT INTERVAL : Confirmed by: Loyda Fernandes MD 18-Mar-2018 17:00:06
[2018-03-18] MEDS: NITROGLYCERIN/D5W 50 MG/250 ML RTUINJ IV PRN (17:24)
--- NOTE | 2018-03-18 18:00 | XCELERA REPORT ---
[address] [address] Transthoracic Echocardiogram Report Name: SHARON JERONIMO Age: 47 yrs Gender: Male : 1970 Patient Status: Inpatient Patient Location: [place] [address]^A Study Date: 03/17/2018 09:22 PM Height: 71 in Weight: 255 lb BSA: 2.3 m2 Procedure: A two-dimensional transthoracic echocardiogram with color flow and Doppler was performed. Study Quality: Technically suboptimal. The study was technically difficult with many images being suboptimal in quality. Reason For Study: CHF History: CHF. Ordering Physician: KARTHIK RICCI Performed By: Ranjana Julian Interpretation Summary The left ventricle is mildly dilated. There is mild concentric left ventricular hypertrophy. LV EF is Probably 35% to 40% Left ventricular systolic function is moderately reduced. Doppler measurements suggest normal left ventricular diastolic function There is moderate global hypokinesis of the left ventricle. The right ventricle is not well visualized secondary to technical limitations The left atrium is mildly dilated. There is no evidence of mitral valve prolapse. There is no vegetation seen on the mitral valve. There is no mitral valve stenosis. There is a mild to moderate amount of mitral regurgitation There is no aortic valve stenosis There is no LVOT obstruction. No aortic regurgitation is present. There is no tricuspid stenosis. There is a moderate amount of tricuspid regurgitation There is moderate pulmonary hypertension by echo RVSP i59 mm of Hg , with RA mean of 10. There is no pericardial effusion. MMode/2D Measurements & Calculations RVDd: 2.8 cm LVIDd: 6.4 cm FS: 26.9 % Ao root diam: 3.1 cm IVSd: 1.2 cm LVIDs: 4.7 cm EDV(Teich): 206.2 ml Ao root area: 7.7 cm2 LVPWd: 1.1 cm ESV(Teich): 100.2 ml LA dimension: 3.4 cm EF(Teich): 51.4 % Doppler Measurements & Calculations MV E max bishnu: MV P1/2t max bishnu: Ao V2 max: LV V1 max P.4 cm/sec 148.8 cm/sec 130.9 cm/sec 3.4 mmHg MV A max bishnu: MV P1/2t: 58.2 msec Ao max P.9 mmHgLV V1 max: 81.9 cm/sec MVA(P1/2t): 3.8 cm2 92.3 cm/sec MV E/A: 1.5 MV dec slope: 749.0 cm/sec2 MV dec time: 0.19 sec PA V2 max: TR max bishnu: MV P1/2t-pr_phl: 130.3 cm/sec 347.5 cm/sec 58.2 msec PA max P.8 mmHg TR max P.3 mmHg Left Ventricle The left ventricle is mildly dilated. There is mild concentric left ventricular hypertrophy. LV EF is Probably 35% to 40%. Left ventricular systolic function is moderately reduced. Doppler measurements suggest normal left ventricular diastolic function. There is moderate global hypokinesis of the left ventricle. Right Ventricle The right ventricle is not well visualized secondary to technical limitations. Atria Right atrium not well visualized secondary to technical limitations. The left atrium is mildly dilated. Mitral Valve There is no evidence of mitral valve prolapse. There is no vegetation seen on the mitral valve. There is no mitral valve stenosis. There is a mild to moderate amount of mitral regurgitation. Aortic Valve There is no aortic valvular vegetation. There is no aortic valve stenosis. There is no LVOT obstruction. No aortic regurgitation is present. Tricuspid Valve There is no tricuspid stenosis. There is a moderate amount of tricuspid regurgitation. There is moderate pulmonary hypertension by echo. RVSP i59 mm of Hg , with RA mean of 10. Pulmonic Valve There is no pulmonic valvular stenosis. There is no pulmonic valvular regurgitation. Great Vessels The aortic root is normal size. Effusions There is no pericardial effusion. : KARTHIK RICCI > Loyda Fernandes
[2018-03-18] MEDS ORDERED: NORMAL SALINE 250 ML with FUROSEMIDE 250 MG IV PRN ×2 (19:58)
[2018-03-18] MEDS ORDERED: (PENDING PHARMACY ID) (Bumetanide [Bumex 2 Mg Tablet] 1 TAB) PO SCH (20:00)
--- NOTE | 2018-03-18 20:19 | PDOC H&P ---
History of Present Illness Admission Date/PCP: 03/17/18 19:18 History of Present Illness: SHARON JERONIMO is a 47 year old male, He has a history of poorly controlled hypertension, coronary artery disease, CVA, type 2 diabetes mellitus, severe plaquing psoriasis, he came to the emergency room for evaluation of progressive shortness of breath, lower extremity swelling. The blood pressure recorded in the emergency room was over 200 systolic, chest x-ray consistent with CHF, BNP was elevated. Patient is poorly compliant with medication, the insurance is also not helping out with payment for his medications. He was prescribed otelza for the treatment of very severe psoriasis but the insurance approve the drug but the patient is unable to afford the drug because it would cost him over $400 out of pocket expense which he cannot afford.Patient is presenting with hypertensive emergency with acute systolic heart failure Past Medical History Cardiac Medical History: Reports: Congestive Heart Failure, Coronary Artery Disease, DVT - right leg., Myocardial Infarction, Hyperlipidema, Hypertension, Heart Murmur Pulmonary Medical History: Reports: Pneumonia Neurological Medical History: Reports: Migraine, Seizures Endocrine Medical History: Reports: Diabetes Mellitus Type 2 GI Medical History: Reports: Gastroesophageal Reflux Disease Musculoskeltal Medical History: Reports: Arthritis Skin Medical History: Reports: Eczema, Psoriasis Infectious Medical History: Denies: Methicillin-Resistant Staph Aureus Past Surgical History Past Surgical History: Reports: Cardiac Catheterization, Vascular Surgery - Stents in right leg, Other - 4 separate operations for ventricular septal defect as a child. Denies: Pacemaker Social History Smoking Status: Never Smoker Frequency of Alcohol Use: None Hx Recreational Drug Use: No Drugs: None Hx Prescription Drug Abuse: No - Advance Directive Resuscitation Status: Full Code Family History Family History: Reviewed & Not Pertinent, Arthritis, CAD, CVA, DM, Hyperlipidemia, Hypertension, Malignancy, Other Parental Family History Reviewed: Yes Children Family History Reviewed: Yes Sibling(s) Family History Reviewed.: Yes Medication/Allergy Home Medications: Albuterol Sulfate [Proair HFA] 2 puff IH Q4HP PRN 09/25/17 Aspirin [Aspirin EC] 81 mg PO DAILY 09/25/17 Bumetanide [Bumex 2 mg Tablet] 1 tab PO QAM 09/25/17 Clobetasol Propionate [Temovate 0.05% Cream 15 gm] 1 applic TP BIDP PRN Lisinopril [Prinivil 40 mg Tablet] 40 mg PO DAILY 09/25/17 Metformin HCl [Glucophage 500 mg Tablet] 500 mg PO BIDBS 09/25/17 Methotrexate Sodium [Methotrexate] 10 mg PO FR@1000 09/25/17 Metoprolol Succinate [Toprol Xl 50 mg Tab.sr] 50 mg PO Q12 09/25/17 Nitroglycerin [Nitrostat] 0.4 mg SL Q5MP PRN 09/25/17 Amlodipine Besylate 10 mg PO DAILY #30 tab 01/16/18 Atorvastatin Calcium [Lipitor 80 mg Tablet] 80 mg PO QHS #30 tablet 01/16/18 Carvedilol [Coreg 25 mg Tablet] 1 tab PO BID 03/17/18 Cyclobenzaprine HCl [Flexeril 10 mg Tablet] 10 mg PO TID 03/17/18 Hydrocodone Bit/Acetaminophen [Hydrocodon-Acetaminophn 10-325] 1 each PO Q6HP PRN 03/17/18 Insulin Aspart [Novolog Flexpen] 10 unit SQ DAILY 03/17/18 Insulin NPH Hum/Reg Insulin Hm [Novolin 70-30 100 Unit/ml Vial] 0 unit SQ .SLIDING SCALE 03/17/18 Isosorbide Mononitrate [Imdur 60 mg Tablet.er] 60 mg PO DAILY 03/17/18 Valsartan/Hydrochlorothiazide [Valsartan-Hctz 320-12.5 mg Tab] 1 each PO DAILY 03/17/18 Allergies/Adverse Reactions: iodine [Iodine] Allergy (Severe, Verified 03/17/18 11:10) SWELLING Shellfish * [Shellfish] Allergy (Severe, Verified 03/17/18 11:10) Anaphylaxis morphine [Morphine] Allergy (Mild, Verified 03/17/18 11:10) diazepam [From Valium] Allergy (Verified 03/17/18 11:10) furosemide [From Lasix] Allergy (Verified 03/17/18 11:10) Review of Systems Constitutional: ABSENT: chills, fever(s), headache(s), weight gain, weight loss Eyes: ABSENT: visual disturbances Ears: ABSENT: hearing changes Cardiovascular: PRESENT: dyspnea on exertion, edema, orthropnea Respiratory: PRESENT: cough, dyspnea Gastrointestinal: ABSENT: abdominal pain, constipation, diarrhea, hematemesis, hematochezia, nausea, vomiting Genitourinary: ABSENT: dysuria, hematuria Musculoskeletal: ABSENT: joint swelling Integumentary: ABSENT: rash, wounds Neurological: ABSENT: abnormal gait, abnormal speech, confusion, dizziness, focal weakness, syncope Psychiatric: ABSENT: anxiety, depression, homidical ideation, suicidal ideation Endocrine: ABSENT: cold intolerance, heat intolerance, menstrual abnormalities, polydipsia, polyuria Hematologic/Lymphatic: ABSENT: easy bleeding, easy bruising, lymphadenopathy Physical Exam Vital Signs: Temp Pulse Resp BP Pulse Ox 100.9 F H 101 H 18 155/73 H 95 03/18/18 15:55 03/18/18 18:00 03/18/18 15:55 03/18/18 18:00 03/18/18 15:55 Intake & Output 03/17/18 03/18/18 03/19/18 06:59 06:59 06:59 Intake Total 299 291 Output Total 1800 700 Balance -1501 -409 Weight 114.5 kg General appearance: PRESENT: no acute distress, well-developed, well-nourished Head exam: PRESENT: atraumatic, normocephalic Eye exam: PRESENT: PERRLA Ear exam: PRESENT: normal external ear exam Mouth exam: PRESENT: moist, tongue midline Neck exam: PRESENT: full ROM Respiratory exam: PRESENT: crackles Cardiovascular exam: PRESENT: RRR, +S1, +S2, systolic murmur Vascular exam: PRESENT: normal capillary refill GI/Abdominal exam: PRESENT: normal bowel sounds, soft Rectal exam: PRESENT: deferred Neurological exam: PRESENT: alert, motor sensory deficit - Left hemiplegia Psychiatric exam: PRESENT: appropriate affect, normal mood Skin exam: PRESENT: dry, intact, warm Results Laboratory Results: 03/18/18 04:05 03/18/18 04:05 03/17/18 03/18/18 03/18/18 22:20 04:05 04:05 WBC 6.1 RBC 4.41 Hgb 12.4 L Hct 36.7 L MCV 83 MCH 28.2 MCHC 33.8 RDW 16.5 H Plt Count 292 Seg Neutrophils % 69.4 Lymphocytes % 22.5 Monocytes % 5.3 Eosinophils % 2.0 Basophils % 0.8 Absolute Neutrophils 4.2 Absolute Lymphocytes 1.4 Absolute Monocytes 0.3 Absolute Eosinophils 0.1 Absolute Basophils 0.0 Sodium 134.3 L Potassium 3.5 L Chloride 97 L Carbon Dioxide 30 Anion Gap 7 BUN 18 Creatinine 1.25 Est GFR ( Amer) > 60 Est GFR (Non-Af Amer) > 60 Glucose 199 H Calcium 9.3 Total Bilirubin 0.8 AST 16 L ALT 21 Alkaline Phosphatase 108 Ammonia 10.3 Total Protein 7.3 Albumin 3.5 Triglycerides 98 Cholesterol 181.88 LDL Cholesterol Direct 112 H VLDL Cholesterol 20.0 HDL Cholesterol 50 Urine Color Urine Appearance Urine pH Ur Specific [place] Urine Protein Urine Glucose (UA) Urine Ketones Urine Blood Urine Nitrite Ur Leukocyte Esterase Urine WBC (Auto) Urine RBC (Auto) 03/18/18 13:00 WBC RBC Hgb Hct MCV MCH MCHC RDW Plt Count Seg Neutrophils % Lymphocytes % Monocytes % Eosinophils % Basophils % Absolute Neutrophils Absolute Lymphocytes Absolute Monocytes Absolute Eosinophils Absolute Basophils Sodium Potassium Chloride Carbon Dioxide Anion Gap BUN Creatinine Est GFR ( Amer) Est GFR (Non-Af Amer) Glucose Calcium Total Bilirubin AST ALT Alkaline Phosphatase Ammonia Total Protein Albumin Triglycerides Cholesterol LDL Cholesterol Direct VLDL Cholesterol HDL Cholesterol Urine Color YELLOW Urine Appearance CLEAR Urine pH 6.0 Ur Specific [place] 1.016 Urine Protein 100 H Urine Glucose (UA) NEGATIVE Urine Ketones NEGATIVE Urine Blood NEGATIVE Urine Nitrite NEGATIVE Ur Leukocyte Esterase NEGATIVE Urine WBC (Auto) 1 Urine RBC (Auto) 1 03/17/18 03/17/18 03/18/18 22:20 22:20 04:05 Creatine Kinase 75 68 CK-MB (CK-2) 0.84 Troponin I 0.024 NT-Pro-B Natriuret Pep 03/18/18 03/18/18 03/18/18 04:05 04:05 10:00 Creatine Kinase 58 CK-MB (CK-2) 0.80 Troponin I 0.025 NT-Pro-B Natriuret Pep 4030 H 03/18/18 10:00 Creatine Kinase CK-MB (CK-2) 0.71 Troponin I 0.023 NT-Pro-B Natriuret Pep Impressions: Chest X-Ray 03/17/18 00:00 IMPRESSION: CARDIAC ENLARGEMENT. VASCULAR CONGESTION. Assessment & Plan - Diagnosis (1) Hypertensive emergency Is this a current diagnosis for this admission?: Yes Plan: Start nitro drip (2) Acute systolic heart failure Is this a current diagnosis for this admission?: Yes Plan: Start beta-nery, other antiCHF medication (3) Plaque psoriasis Is this a current diagnosis for this admission?: Yes (4) Left hemiplegia Is this a current diagnosis for this admission?: Yes (5) Personal history of DVT (deep vein thrombosis) Is this a current diagnosis for this admission?: Yes (6) Status post CVA Is this a current diagnosis for this admission?: Yes (7) Status post ventricular septal defect closure Is this a current diagnosis for this admission?: Yes
[2018-03-19] MEDS: SACUBITRIL/VALSARTAN 97 MG/103 MG TABLET PO SCH ×3 (00:13→17:54)
[2018-03-19] MEDS: BUMETANIDE 1 MG TABLET PO SCH ×2 (00:14→08:11)
[2018-03-19] MEDS: HEPARIN SOD (PORCINE) 5,000 UNIT/ML 1 ML SYRINGE SUBCUT SCH ×4 (00:14→22:05)
[2018-03-19] MEDS: ATORVASTATIN CALCIUM 80 MG TABLET PO SCH ×2 (00:14→22:06)
[2018-03-19 05:33] LABS: ABSOLUTE BASOPHILS # (AUTO) 0.1 10^3/uL (0.0-0.2); ABSOLUTE EOSINOPHILS # (AUTO) 0.2 10^3/uL (0.0-0.6); ABSOLUTE LYMPHOCYTES (AUTO) 1.1 10^3/uL (0.5-4.7); ABSOLUTE MONOCYTES (AUTO) 0.6 10^3/uL (0.1-1.4); ABSOLUTE NEUT (AUTO) 5.5 10^3/uL (1.7-8.2); BASOPHILS % (AUTO) 0.9 % (0-2); EOSINOPHILS % (AUTO) 2.6 % (0-6); HEMOGLOBIN 12.9 g/dL (13.5-17.0); LYMPHOCYTES % (AUTO) 14.6 % (13-45); MEAN CORPUSCULAR HEMOGLOBIN 27.9 pg (27.0-33.4); MEAN CORPUSCULAR VOLUME 82 fl (80-97); MONOCYTES % (AUTO) 7.9 % (3-13); PLATELET COUNT 294 10^3/uL (150-450); RED BLOOD COUNT 4.64 10^6/uL (4.35-5.55); RED CELL DISTRIBUTION WIDTH 16.3 % (11.5-14.0); TOTAL CELLS COUNTED % (AUTO) 100 %; WHITE BLOOD COUNT 7.4 10^3/uL (4.0-10.5)
[2018-03-19 05:58] LABS: ALANINE AMINOTRANSFERASE 19 U/L (21-72); ALBUMIN 3.3 g/dL (3.5-5.0); ALKALINE PHOSPHATASE 96 U/L (38-126); ANION GAP 12 (5-19); ASPARTATE AMINO TRANSFERASE 10 U/L (17-59); BILIRUBIN,DIRECT 0.4 mg/dL (0.0-0.4); BILIRUBIN,TOTAL 1.3 mg/dL (0.2-1.3); BLOOD UREA NITROGEN 20 mg/dL (7-20); CALCIUM 8.9 mg/dL (8.4-10.2); CARBON DIOXIDE 30 mmol/L (22-30); CHLORIDE 92 mmol/L (98-107); GLUCOSE 149 mg/dL (75-110); POTASSIUM 3.4 mmol/L (3.6-5.0); SODIUM 133.6 mmol/L (137-145); TOTAL PROTEIN 7.2 g/dL (6.3-8.2)
[2018-03-19] MEDS: METFORMIN HCL 500 MG TABLET PO SCH ×2 (08:11→17:54)
[2018-03-19] MEDS: HYDROCODONE/ACETAMINOPHEN 10-325 MG TABLET PO PRN (08:13)
[2018-03-19] MEDS ORDERED: LISINOPRIL 10 MG TABLET PO SCH (10:00)
[2018-03-19] MEDS: AMLODIPINE BESYLATE 10 MG TABLET PO SCH (10:17)
[2018-03-19] MEDS: LISINOPRIL 10 MG TABLET PO SCH (10:18)
[2018-03-19] MEDS: INSULIN LISPRO 100 UNIT/ML 3 ML VIAL SUBCUT SCH (10:19)
[2018-03-19] MEDS: INSULIN LISPRO 100 UNIT/ML 3 ML VIAL SUBCUT PRN ×3 (10:19→22:05)
[2018-03-19] MEDS: CYCLOBENZAPRINE HCL 10 MG TABLET PO SCH ×3 (10:20→17:54)
[2018-03-19] MEDS: ISOSORBIDE MONONITRATE 60 MG TAB.ER.24H PO SCH (10:20)
[2018-03-19] MEDS: CARVEDILOL 12.5 MG TABLET PO SCH (10:20)
[2018-03-19] MEDS: ASPIRIN 81 MG TABLET, ENT COATED PO SCH (10:20)
--- NOTE | 2018-03-19 15:51 | PDOC PROGRESS REPORT ---
Subjective Progress Note for:: 03/19/18 Subjective:: Patient was seen by the bedside, he was admitted for the management of acute systolic heart failure in the setting of malignant hypertension. The blood pressure is better controlled, he was started on Entresto, the challenge will be with the insurance paying for this drug on discharge. He has very severe plaque psoriasis the treatment of choice for this advanced psoriatic disease is otezla but again the medical insurance is not paying for it. Reason For Visit: ACUTE SYSTOLIC HEART FAILURE,HYPERTENSIVE EMERGENC Physical Exam Vital Signs: Temp Pulse Resp BP Pulse Ox 98.7 F 91 17 133/82 H 96 03/19/18 11:45 03/19/18 14:00 03/19/18 11:45 03/19/18 11:45 03/19/18 11:45 Intake & Output 03/18/18 03/19/18 03/20/18 06:59 06:59 06:59 Intake Total 299 333 236 Output Total 1800 9365 1100 Balance -1782 -9262 -864 Weight 114.5 kg 110.3 kg General appearance: PRESENT: no acute distress Eye exam: PRESENT: PERRLA Respiratory exam: PRESENT: clear to auscultation bernardo Cardiovascular exam: PRESENT: +S1, +S2 GI/Abdominal exam: PRESENT: soft Neurological exam: PRESENT: alert Results Laboratory Results: 03/19/18 04:52 03/19/18 04:52 03/19/18 03/19/18 04:52 04:52 WBC 7.4 RBC 4.64 Hgb 12.9 L Hct 38.0 MCV 82 MCH 27.9 MCHC 34.0 RDW 16.3 H Plt Count 294 Seg Neutrophils % 74.0 Lymphocytes % 14.6 Monocytes % 7.9 Eosinophils % 2.6 Basophils % 0.9 Absolute Neutrophils 5.5 Absolute Lymphocytes 1.1 Absolute Monocytes 0.6 Absolute Eosinophils 0.2 Absolute Basophils 0.1 Sodium 133.6 L Potassium 3.4 L Chloride 92 L Carbon Dioxide 30 Anion Gap 12 BUN 20 Creatinine 1.42 H Est GFR ( Amer) > 60 Est GFR (Non-Af Amer) 54 L Glucose 149 H Calcium 8.9 Total Bilirubin 1.3 AST 10 L ALT 19 L Alkaline Phosphatase 96 Total Protein 7.2 Albumin 3.3 L 03/17/18 03/17/18 03/18/18 22:20 22:20 04:05 Creatine Kinase 75 68 CK-MB (CK-2) 0.84 Troponin I 0.024 NT-Pro-B Natriuret Pep 03/18/18 03/18/18 03/18/18 04:05 04:05 10:00 Creatine Kinase 58 CK-MB (CK-2) 0.80 Troponin I 0.025 NT-Pro-B Natriuret Pep 4030 H 03/18/18 10:00 Creatine Kinase CK-MB (CK-2) 0.71 Troponin I 0.023 NT-Pro-B Natriuret Pep Impressions: Chest X-Ray 03/17/18 00:00 IMPRESSION: CARDIAC ENLARGEMENT. VASCULAR CONGESTION. Assessment & Plan - Diagnosis (1) Hypertensive emergency Is this a current diagnosis for this admission?: Yes (2) Acute systolic heart failure Is this a current diagnosis for this admission?: Yes (3) Plaque psoriasis Is this a current diagnosis for this admission?: Yes (4) Left hemiplegia Is this a current diagnosis for this admission?: Yes (5) Personal history of DVT (deep vein thrombosis) Is this a current diagnosis for this admission?: Yes (6) Status post CVA Is this a current diagnosis for this admission?: Yes (7) Status post ventricular septal defect closure Is this a current diagnosis for this admission?: Yes (8) Coronary artery disease Qualifiers: Coronary Disease-Associated Artery/Lesion type: [place] artery [place] vs. transplanted heart: [place] heart Associated angina: without angina Qualified Code(s): I25.10 - Atherosclerotic heart disease of [place] coronary artery without angina pectoris Is this a current diagnosis for this admission?: Yes - Plan Summary Plan Summary: Continue present treatment
[2018-03-19] MEDS: CLOBETASOL PROPIONATE 0.05% OINTMENT 15 GM TP PRN (17:54)
[2018-03-20 04:40] LABS: ABSOLUTE EOSINOPHILS # (AUTO) 0.4 10^3/uL (0.0-0.6); ABSOLUTE LYMPHOCYTES (AUTO) 1.2 10^3/uL (0.5-4.7); ABSOLUTE MONOCYTES (AUTO) 0.7 10^3/uL (0.1-1.4); ABSOLUTE NEUT (AUTO) 6.2 10^3/uL (1.7-8.2); BASOPHILS % (AUTO) 0.4 % (0-2); EOSINOPHILS % (AUTO) 4.2 % (0-6); HEMATOCRIT 40.9 % (37.9-51.0); HEMOGLOBIN 14.2 g/dL (13.5-17.0); LYMPHOCYTES % (AUTO) 14.3 % (13-45); MEAN CORPUSCULAR HEMOGLOBIN 28.3 pg (27.0-33.4); MEAN CORPUSCULAR HGB CONC 34.6 g/dL (32.0-36.0); MEAN CORPUSCULAR VOLUME 82 fl (80-97); MONOCYTES % (AUTO) 8.2 % (3-13); PLATELET COUNT 340 10^3/uL (150-450); RED BLOOD COUNT 5.01 10^6/uL (4.35-5.55); RED CELL DISTRIBUTION WIDTH 16.2 % (11.5-14.0); SEGMENTED NEUTROPHILS % (AUTO) 72.9 % (42-78); TOTAL CELLS COUNTED % (AUTO) 100 %; WHITE BLOOD COUNT 8.5 10^3/uL (4.0-10.5)
[2018-03-20 05:03] LABS: ALANINE AMINOTRANSFERASE 20 U/L (21-72); ALBUMIN 3.4 g/dL (3.5-5.0); ALKALINE PHOSPHATASE 105 U/L (38-126); ANION GAP 13 (5-19); ASPARTATE AMINO TRANSFERASE 13 U/L (17-59); BILIRUBIN,DIRECT 0.4 mg/dL (0.0-0.4); BILIRUBIN,TOTAL 0.8 mg/dL (0.2-1.3); BLOOD UREA NITROGEN 30 mg/dL (7-20); CALCIUM 9.2 mg/dL (8.4-10.2); CARBON DIOXIDE 32 mmol/L (22-30); CHLORIDE 91 mmol/L (98-107); GLUCOSE 142 mg/dL (75-110); POTASSIUM 3.6 mmol/L (3.6-5.0); TOTAL PROTEIN 7.4 g/dL (6.3-8.2)
[2018-03-20] MEDS: HEPARIN SOD (PORCINE) 5,000 UNIT/ML 1 ML SYRINGE SUBCUT SCH ×3 (05:41→22:07)
[2018-03-20] MEDS: HYDROCODONE/ACETAMINOPHEN 10-325 MG TABLET PO PRN ×2 (07:33→14:18)
[2018-03-20] MEDS: INSULIN LISPRO 100 UNIT/ML 3 ML VIAL SUBCUT PRN ×4 (07:33→22:08)
[2018-03-20] MEDS: BUMETANIDE 1 MG TABLET PO SCH (07:39)
[2018-03-20] MEDS: METFORMIN HCL 500 MG TABLET PO SCH ×2 (07:40→18:03)
[2018-03-20] MEDS: CYCLOBENZAPRINE HCL 10 MG TABLET PO SCH ×3 (09:17→18:03)
[2018-03-20] MEDS: CARVEDILOL 12.5 MG TABLET PO SCH (09:17)
[2018-03-20] MEDS: ISOSORBIDE MONONITRATE 60 MG TAB.ER.24H PO SCH (09:17)
[2018-03-20] MEDS: AMLODIPINE BESYLATE 10 MG TABLET PO SCH (09:17)
[2018-03-20] MEDS: ASPIRIN 81 MG TABLET, ENT COATED PO SCH (09:17)
[2018-03-20] MEDS: SACUBITRIL/VALSARTAN 97 MG/103 MG TABLET PO SCH ×2 (09:17→18:03)
[2018-03-20] MEDS: LISINOPRIL 10 MG TABLET PO SCH (09:18)
[2018-03-20] MEDS: INSULIN LISPRO 100 UNIT/ML 3 ML VIAL SUBCUT SCH (09:22)
[2018-03-20] MEDS: DIPHENHYDRAMINE HCL 25 MG CAPSULE PO SCH ×2 (17:05→23:09)
[2018-03-20] MEDS ORDERED: DIPHENHYDRAMINE HCL 50 MG/ML VIAL IV SCH (17:15)
[2018-03-20] MEDS ORDERED: METHYLPREDNISOLONE INJ 125 MG/2 ML SDV IV ONE (17:16)
[2018-03-20] MEDS: FAMOTIDINE INJ/PF 20 MG/2 ML SDV IV SCH ×2 (18:03→22:07)
--- NOTE | 2018-03-20 18:27 | PDOC PROGRESS REPORT ---
Subjective Progress Note for:: 03/20/18 Subjective:: Patient was seen by the bedside, he has diffuse hives Reason For Visit: ACUTE SYSTOLIC HEART FAILURE,HYPERTENSIVE EMERGENC Physical Exam Vital Signs: Temp Pulse Resp BP Pulse Ox 98.3 F 116 H 17 126/80 H 97 03/20/18 15:47 03/20/18 15:47 03/20/18 15:47 03/20/18 15:47 03/20/18 15:47 Intake & Output 03/19/18 03/20/18 03/21/18 06:59 06:59 06:59 Intake Total 333 636 0 Output Total 1775 2090 300 Balance -1442 -1454 -300 Weight 110.3 kg 107.4 kg General appearance: PRESENT: no acute distress Eye exam: PRESENT: PERRLA Respiratory exam: PRESENT: clear to auscultation bernardo Cardiovascular exam: PRESENT: +S1, +S2 GI/Abdominal exam: PRESENT: soft Neurological exam: PRESENT: alert Skin exam: PRESENT: rash - Hives Results Laboratory Results: 03/20/18 04:10 03/20/18 04:10 03/20/18 03/20/18 04:10 04:10 WBC 8.5 RBC 5.01 Hgb 14.2 Hct 40.9 MCV 82 MCH 28.3 MCHC 34.6 RDW 16.2 H Plt Count 340 Seg Neutrophils % 72.9 Lymphocytes % 14.3 Monocytes % 8.2 Eosinophils % 4.2 Basophils % 0.4 Absolute Neutrophils 6.2 Absolute Lymphocytes 1.2 Absolute Monocytes 0.7 Absolute Eosinophils 0.4 Absolute Basophils 0.0 Sodium 136.0 L Potassium 3.6 Chloride 91 L Carbon Dioxide 32 H Anion Gap 13 BUN 30 H Creatinine 1.62 H Est GFR ( Amer) 56 L Est GFR (Non-Af Amer) 46 L Glucose 142 H Calcium 9.2 Total Bilirubin 0.8 AST 13 L ALT 20 L Alkaline Phosphatase 105 Total Protein 7.4 Albumin 3.4 L 03/18/18 13:00 Clean Catch Midstream Urine Culture - Final NO GROWTH 2 DAYS 03/17/18 03/17/18 03/18/18 22:20 22:20 04:05 Creatine Kinase 75 68 CK-MB (CK-2) 0.84 Troponin I 0.024 NT-Pro-B Natriuret Pep 03/18/18 03/18/1818 04:05 04:05 10:00 Creatine Kinase 58 CK-MB (CK-2) 0.80 Troponin I 0.025 NT-Pro-B Natriuret Pep 4030 H 03/18/18 10:00 Creatine Kinase CK-MB (CK-2) 0.71 Troponin I 0.023 NT-Pro-B Natriuret Pep Impressions: Chest X-Ray 03/17/18 00:00 IMPRESSION: CARDIAC ENLARGEMENT. VASCULAR CONGESTION. Assessment & Plan - Diagnosis (1) Hypertensive emergency Is this a current diagnosis for this admission?: Yes (2) Acute systolic heart failure Is this a current diagnosis for this admission?: Yes (3) Plaque psoriasis Is this a current diagnosis for this admission?: Yes (4) Left hemiplegia Is this a current diagnosis for this admission?: Yes (5) Personal history of DVT (deep vein thrombosis) Is this a current diagnosis for this admission?: Yes (6) Status post CVA Is this a current diagnosis for this admission?: Yes (7) Status post ventricular septal defect closure Is this a current diagnosis for this admission?: Yes (8) Coronary artery disease Qualifiers: Coronary Disease-Associated Artery/Lesion type: [place] artery [place] vs. transplanted heart: [place] heart Associated angina: without angina Qualified Code(s): I25.10 - Atherosclerotic heart disease of [place] coronary artery without angina pectoris Is this a current diagnosis for this admission?: Yes (9) Urticaria Is this a current diagnosis for this admission?: Yes Plan: Give Solu-Medrol 125mg IV , Benadryl 50 mg IV every 6 hours x3 doses,pepcid 20mg
[2018-03-20] MEDS: ATORVASTATIN CALCIUM 80 MG TABLET PO SCH (22:09)
[2018-03-21] MEDS: HEPARIN SOD (PORCINE) 5,000 UNIT/ML 1 ML SYRINGE SUBCUT SCH ×3 (05:53→22:01)
[2018-03-21] MEDS: DIPHENHYDRAMINE HCL 25 MG CAPSULE PO SCH (05:53)
[2018-03-21] MEDS: BUMETANIDE 1 MG TABLET PO SCH (08:23)
[2018-03-21] MEDS: METFORMIN HCL 500 MG TABLET PO SCH ×2 (08:23→18:49)
[2018-03-21] MEDS: INSULIN LISPRO 100 UNIT/ML 3 ML VIAL SUBCUT PRN ×4 (08:26→23:18)
[2018-03-21] MEDS: INSULIN LISPRO 100 UNIT/ML 3 ML VIAL SUBCUT SCH (09:27)
[2018-03-21] MEDS: AMLODIPINE BESYLATE 10 MG TABLET PO SCH (09:28)
[2018-03-21] MEDS: ISOSORBIDE MONONITRATE 60 MG TAB.ER.24H PO SCH (09:28)
[2018-03-21] MEDS: ASPIRIN 81 MG TABLET, ENT COATED PO SCH (09:28)
[2018-03-21] MEDS: CARVEDILOL 12.5 MG TABLET PO SCH (09:28)
[2018-03-21] MEDS: CYCLOBENZAPRINE HCL 10 MG TABLET PO SCH ×3 (09:28→18:49)
[2018-03-21] MEDS: SACUBITRIL/VALSARTAN 97 MG/103 MG TABLET PO SCH ×2 (09:28→18:49)
[2018-03-21] MEDS: LISINOPRIL 10 MG TABLET PO SCH (09:29)
[2018-03-21] MEDS: FAMOTIDINE INJ/PF 20 MG/2 ML SDV IV SCH ×2 (09:29→22:01)
[2018-03-21] MEDS: HYDROCODONE/ACETAMINOPHEN 10-325 MG TABLET PO PRN ×2 (09:39→22:01)
--- NOTE | 2018-03-21 20:51 | PDOC PROGRESS REPORT ---
Subjective Progress Note for:: 03/21/18 Subjective:: Patient had another episode of hives, pruritus this seems to be associated with use of cyclobenzaprine Reason For Visit: ACUTE SYSTOLIC HEART FAILURE,HYPERTENSIVE EMERGENC Physical Exam Vital Signs: Temp Pulse Resp BP Pulse Ox 97.6 F 100 16 163/104 H 98 03/21/18 19:58 03/21/18 19:58 03/21/18 19:58 03/21/18 19:58 03/21/18 19:58 Intake & Output 03/20/18 03/21/18 03/22/18 06:59 06:59 06:59 Intake Total 636 800 118 Output Total 2090 600 700 Balance -1454 200 -582 Weight 107.4 kg General appearance: PRESENT: no acute distress Eye exam: PRESENT: PERRLA Respiratory exam: PRESENT: clear to auscultation bernardo Cardiovascular exam: PRESENT: +S1, +S2 GI/Abdominal exam: PRESENT: soft Neurological exam: PRESENT: alert Results Laboratory Results: 03/20/18 04:10 03/20/18 04:10 03/17/18 03/17/18 03/18/18 22:20 22:20 04:05 Creatine Kinase 75 68 CK-MB (CK-2) 0.84 Troponin I 0.024 NT-Pro-B Natriuret Pep 03/18/18 03/18/18 03/18/18 04:05 04:05 10:00 Creatine Kinase 58 CK-MB (CK-2) 0.80 Troponin I 0.025 NT-Pro-B Natriuret Pep 4030 H 03/18/18 10:00 Creatine Kinase CK-MB (CK-2) 0.71 Troponin I 0.023 NT-Pro-B Natriuret Pep Impressions: Chest X-Ray 03/17/18 00:00 IMPRESSION: CARDIAC ENLARGEMENT. VASCULAR CONGESTION. Assessment & Plan - Diagnosis (1) Hypertensive emergency Is this a current diagnosis for this admission?: Yes (2) Acute systolic heart failure Is this a current diagnosis for this admission?: Yes (3) Plaque psoriasis Is this a current diagnosis for this admission?: Yes (4) Left hemiplegia Is this a current diagnosis for this admission?: Yes (5) Personal history of DVT (deep vein thrombosis) Is this a current diagnosis for this admission?: Yes (6) Status post CVA Is this a current diagnosis for this admission?: Yes (7) Status post ventricular septal defect closure Is this a current diagnosis for this admission?: Yes (8) Coronary artery disease Qualifiers: Coronary Disease-Associated Artery/Lesion type: [place] artery [place] vs. transplanted heart: [place] heart Associated angina: without angina Qualified Code(s): I25.10 - Atherosclerotic heart disease of [place] coronary artery without angina pectoris Is this a current diagnosis for this admission?: Yes (9) Urticaria Is this a current diagnosis for this admission?: Yes Plan: Give Solu-Medrol 125mg IV , Benadryl 50 mg IV every 6 hours x3 doses,pepcid 20mg
[2018-03-21] MEDS ORDERED: METHYLPREDNISOLONE INJ 125 MG/2 ML SDV IV ONE (21:00)
[2018-03-21] MEDS: ATORVASTATIN CALCIUM 80 MG TABLET PO SCH (22:01)
[2018-03-21] MEDS: CLOBETASOL PROPIONATE 0.05% OINTMENT 15 GM TP PRN (22:12)
[2018-03-22] MEDS: HEPARIN SOD (PORCINE) 5,000 UNIT/ML 1 ML SYRINGE SUBCUT SCH ×3 (06:13→22:12)
[2018-03-22] MEDS: INSULIN LISPRO 100 UNIT/ML 3 ML VIAL SUBCUT PRN (08:16)
[2018-03-22] MEDS: BUMETANIDE 1 MG TABLET PO SCH (08:17)
[2018-03-22] MEDS: METFORMIN HCL 500 MG TABLET PO SCH ×2 (08:17→17:04)
[2018-03-22] MEDS: ISOSORBIDE MONONITRATE 60 MG TAB.ER.24H PO SCH (10:04)
[2018-03-22] MEDS: AMLODIPINE BESYLATE 10 MG TABLET PO SCH (10:04)
[2018-03-22] MEDS: ASPIRIN 81 MG TABLET, ENT COATED PO SCH (10:04)
[2018-03-22] MEDS: CARVEDILOL 12.5 MG TABLET PO SCH ×2 (10:05→22:05)
[2018-03-22] MEDS: FAMOTIDINE INJ/PF 20 MG/2 ML SDV IV SCH ×2 (10:06→22:12)
[2018-03-22] MEDS: CLOBETASOL PROPIONATE 0.05% OINTMENT 15 GM TP PRN (10:08)
[2018-03-22] MEDS: SACUBITRIL/VALSARTAN 97 MG/103 MG TABLET PO SCH ×2 (10:09→17:03)
[2018-03-22] MEDS: CYCLOBENZAPRINE HCL 10 MG TABLET PO SCH ×3 (10:11→17:02)
[2018-03-22] MEDS: LISINOPRIL 10 MG TABLET PO SCH (10:15)
[2018-03-22] MEDS: INSULIN LISPRO 100 UNIT/ML 3 ML VIAL SUBCUT SCH (10:19)
[2018-03-22] MEDS ORDERED: INSULIN LISPRO 100 UNIT/ML 3 ML VIAL SUBCUT ONE ×2 (12:00→17:00)
[2018-03-22] MEDS: HYDROCODONE/ACETAMINOPHEN 10-325 MG TABLET PO PRN (14:06)
--- NOTE | 2018-03-22 15:20 | PDOC PROGRESS REPORT ---
Subjective Progress Note for:: 03/22/18 Subjective:: Patient blood glucose remain elevated. He has been ordering grapes and pineapples for meals. Patient postpone administration of ordered sliding scale insulin treatment. No chest pain or difficulty with breathing. Reason For Visit: ACUTE SYSTOLIC HEART FAILURE,HYPERTENSIVE EMERGENC Physical Exam Vital Signs: Temp Pulse Resp BP Pulse Ox 97.6 F 88 18 162/86 H 100 03/22/18 11:37 03/22/18 11:37 03/22/18 11:37 03/22/18 11:37 03/22/18 11:37 Intake & Output 03/21/18 03/22/18 03/23/18 06:59 06:59 06:59 Intake Total 800 1918 118 Output Total 600 700 350 Balance 200 1218 -232 Weight 107.3 kg General appearance: PRESENT: no acute distress, obese Head exam: PRESENT: atraumatic, normocephalic Eye exam: PRESENT: conjunctiva pink, EOMI, PERRLA. ABSENT: scleral icterus Ear exam: PRESENT: normal external ear exam Mouth exam: PRESENT: moist Respiratory exam: PRESENT: clear to auscultation bernardo Cardiovascular exam: PRESENT: RRR. ABSENT: diastolic murmur, rubs, systolic murmur Vascular exam: ABSENT: pallor GI/Abdominal exam: PRESENT: normal bowel sounds, soft. ABSENT: distended, guarding, mass, organolmegaly, rebound, tenderness Extremities exam: ABSENT: pedal edema Musculoskeletal exam: PRESENT: normal inspection Neurological exam: PRESENT: alert, awake, oriented to person, oriented to place , oriented to time, oriented to situation, CN II-XII grossly intact. ABSENT: motor sensory deficit Psychiatric exam: PRESENT: agitated - during this visit at bedside due to discussion about his management and dietary selections, appropriate affect, normal mood. ABSENT: homicidal ideation, suicidal ideation Skin exam: PRESENT: dry, intact, warm. ABSENT: cyanosis, rash Results Laboratory Results: 03/20/18 04:10 03/20/18 04:10 03/17/18 03/17/18 03/18/18 22:20 22:20 04:05 Creatine Kinase 75 68 CK-MB (CK-2) 0.84 Troponin I 0.024 NT-Pro-B Natriuret Pep 03/18/18 03/18/18 03/18/18 04:05 04:05 10:00 Creatine Kinase 58 CK-MB (CK-2) 0.80 Troponin I 0.025 NT-Pro-B Natriuret Pep 4030 H 03/18/18 10:00 Creatine Kinase CK-MB (CK-2) 0.71 Troponin I 0.023 NT-Pro-B Natriuret Pep Impressions: Chest X-Ray 03/17/18 00:00 IMPRESSION: CARDIAC ENLARGEMENT. VASCULAR CONGESTION. Assessment & Plan - Diagnosis (1) Acute on chronic diastolic CHF (congestive heart failure) Is this a current diagnosis for this admission?: Yes Plan: D/C Lisinopril. Increase Carvedilol to 25 mg p.o bid. Maintain on Entresto 97/ 103 mg p.o bid. Obtain BMP in AM. (2) Diabetes mellitus type 2 in obese Is this a current diagnosis for this admission?: Yes Plan: Request Diabetes mellitus teaching consultation. Start on Humalog 70/30 insulin 10 units SC ACBS. Monitor serum creatinine for possible change of Metformin. Current status may be due to acute cardiac decompensation management. (3) Hypertension Qualifiers: Hypertension type: essential hypertension Qualified Code(s): I10 - Essential (primary) hypertension Is this a current diagnosis for this admission?: Yes Plan: See covering attending physician orders. - Time Time Spent with patient: 25-34 minutes Medications reviewed and adjusted accordingly: Yes Anticipated discharge: Home Within: Other - Inpatient Certification Based on my medical assessment, after consideration of the patient's comorbidities, presenting symptoms, or acuity I expect that the services needed warrant INPATIENT care.: Yes I certify that my determination is in accordance with my understanding of Medicare's requirements for reasonable and necessary INPATIENT services [42 CFR 412.3e].: Yes Medical Necessity: Need Close Monitoring Due to Risk of Patient Decompensation, Need For Continuous Telemetry Monitoring, Risk of Complication if Not Cared For in Hospital Post Hospital Care: D/C Hospice Consultant Documentation - Plan Summary Plan Summary: Patient was adequately instructed on dietary restrictions for his DM and CHF management. I will request nursing education management for DM and CHf. We will continue current medication management.
[2018-03-22] MEDS: HUM INSULIN NPH/REG INSULIN HM 100 UNIT/1 ML 3 ML SUBCUT SCH (15:57)
[2018-03-22] MEDS ORDERED: SENNOSIDES/DOCUSATE 8.6-50 MG 1 EACH TABLET PO ONE (16:00)
[2018-03-22] MEDS ORDERED: INSULIN, REGULAR 100 UNIT/100 ML NORMAL SALINE IV PRN ×2 (18:44)
[2018-03-22] MEDS ORDERED: INSULIN REG, HUMAN 100 UNIT/ML 3 ML VIAL (PYX) ONE (18:55)
[2018-03-22 19:20] LABS: ANION GAP 10 (5-19); BLOOD UREA NITROGEN 26 mg/dL (7-20); CALCIUM 9.2 mg/dL (8.4-10.2); CARBON DIOXIDE 25 mmol/L (22-30); CHLORIDE 95 mmol/L (98-107); POTASSIUM 3.7 mmol/L (3.6-5.0); SODIUM 129.9 mmol/L (137-145)
[2018-03-22 19:29] LABS: GLUCOSE 507 mg/dL (75-110)
[2018-03-22] MEDS ORDERED: NORMAL SALINE 1000 ML 1,000 ML IV PRN (20:03)
[2018-03-22] MEDS: ATORVASTATIN CALCIUM 80 MG TABLET PO SCH (22:05)
[2018-03-23 01:01] LABS: ANION GAP 8 (5-19); BLOOD UREA NITROGEN 24 mg/dL (7-20); CALCIUM 8.8 mg/dL (8.4-10.2); CARBON DIOXIDE 27 mmol/L (22-30); CHLORIDE 97 mmol/L (98-107); GLUCOSE 396 mg/dL (75-110); POTASSIUM 3.5 mmol/L (3.6-5.0); SODIUM 132.4 mmol/L (137-145)
[2018-03-23] MEDS: HEPARIN SOD (PORCINE) 5,000 UNIT/ML 1 ML SYRINGE SUBCUT SCH ×3 (06:29→21:30)
[2018-03-23 06:50] LABS: ANION GAP 6 (5-19); BLOOD UREA NITROGEN 21 mg/dL (7-20); CALCIUM 8.9 mg/dL (8.4-10.2); CARBON DIOXIDE 28 mmol/L (22-30); CHLORIDE 102 mmol/L (98-107); GLUCOSE 161 mg/dL (75-110); POTASSIUM 3.5 mmol/L (3.6-5.0); SODIUM 136.4 mmol/L (137-145)
[2018-03-23] MEDS: HUM INSULIN NPH/REG INSULIN HM 100 UNIT/1 ML 3 ML SUBCUT SCH ×2 (07:43→16:15)
[2018-03-23] MEDS: METFORMIN HCL 500 MG TABLET PO SCH ×2 (07:43→16:14)
[2018-03-23] MEDS: BUMETANIDE 1 MG TABLET PO SCH (07:43)
[2018-03-23] MEDS: INSULIN LISPRO 100 UNIT/ML 3 ML VIAL SUBCUT PRN ×4 (07:44→22:35)
[2018-03-23] MEDS: AMLODIPINE BESYLATE 10 MG TABLET PO SCH (09:11)
[2018-03-23] MEDS: FAMOTIDINE INJ/PF 20 MG/2 ML SDV IV SCH ×2 (09:11→21:29)
[2018-03-23] MEDS: ISOSORBIDE MONONITRATE 60 MG TAB.ER.24H PO SCH (09:11)
[2018-03-23] MEDS: CYCLOBENZAPRINE HCL 10 MG TABLET PO SCH ×2 (09:12→13:28)
[2018-03-23] MEDS: ASPIRIN 81 MG TABLET, ENT COATED PO SCH (09:12)
[2018-03-23] MEDS: SACUBITRIL/VALSARTAN 97 MG/103 MG TABLET PO SCH ×2 (09:12→17:04)
[2018-03-23] MEDS: CARVEDILOL 12.5 MG TABLET PO SCH ×2 (09:12→21:30)
[2018-03-23] MEDS ORDERED: DIPHENHYDRAMINE HCL 50 MG/ML VIAL IV PRN (09:30)
--- NOTE | 2018-03-23 12:51 | PDOC PROGRESS REPORT ---
Subjective Progress Note for:: 03/23/18 Subjective:: Patient blood glucose was severely elevated necessitating Insulin infusion therapy since last clinical evaluation. Currently off insulin drip with improvement in his blood glucose. I reemphasized need for dietary compliance in his diabetic management. No chest pain or difficulty with breathing. No fever or chills. Reason For Visit: ACUTE SYSTOLIC HEART FAILURE,HYPERTENSIVE EMERGENC Physical Exam Vital Signs: Temp Pulse Resp BP Pulse Ox 98.2 F 76 18 150/108 H 98 03/23/18 11:53 03/23/18 11:53 03/23/18 11:53 03/23/18 11:53 03/23/18 11:53 Intake & Output 03/22/18 03/23/18 03/24/18 06:59 06:59 06:59 Intake Total 1918 278 250 Output Total 700 900 500 Balance 1218 -622 -250 Weight 107.3 kg 114.3 kg Physical Exam: General appearance: PRESENT: no acute distress, obese Head exam: PRESENT: atraumatic, normocephalic Eye exam: PRESENT: conjunctiva pink, EOMI, PERRLA. ABSENT: scleral icterus Ear exam: PRESENT: normal external ear exam Mouth exam: PRESENT: moist Respiratory exam: PRESENT: clear to auscultation bernardo Cardiovascular exam: PRESENT: RRR. ABSENT: diastolic murmur, rubs, systolic murmur Vascular exam: ABSENT: pallor GI/Abdominal exam: PRESENT: normal bowel sounds, soft. ABSENT: distended, guarding, mass, organomegaly, rebound, tenderness Extremities exam: ABSENT: pedal edema Musculoskeletal exam: PRESENT: normal inspection, erythematous rash on left forearm. Neurological exam: PRESENT: alert, awake, oriented to person, oriented to place , oriented to time, oriented to situation, CN II-XII grossly intact. ABSENT: motor sensory deficit Psychiatric exam: PRESENT: agitated - during this visit at bedside due to discussion about his management and dietary selections, appropriate affect, normal mood. ABSENT: homicidal ideation, suicidal ideation Skin exam: PRESENT: dry, intact, warm. ABSENT: cyanosis, rash Results Laboratory Results: 03/20/18 04:10 03/23/18 06:14 03/22/18 03/23/18 03/23/18 18:50 00:27 06:14 Sodium 129.9 L 132.4 L 136.4 L Potassium 3.7 3.5 L 3.5 L Chloride 95 L 97 L 102 Carbon Dioxide 25 27 28 Anion Gap 10 8 6 BUN 26 H 24 H 21 H Creatinine 1.19 1.10 1.00 Est GFR ( Amer) > 60 > 60 > 60 Est GFR (Non-Af Amer) > 60 > 60 > 60 Glucose 507 H* 396 H 161 H Calcium 9.2 8.8 8.9 Magnesium 2.0 1.8 03/17/18 22:52 Blood Blood Culture - Final NO GROWTH IN 5 DAYS 03/17/18 22:20 Blood Blood Culture - Final NO GROWTH IN 5 DAYS 03/17/18 03/17/18 03/18/18 22:20 22:20 04:05 Creatine Kinase 75 68 CK-MB (CK-2) 0.84 Troponin I 0.024 NT-Pro-B Natriuret Pep 03/18/18 03/18/18 03/18/18 04:05 04:05 10:00 Creatine Kinase 58 CK-MB (CK-2) 0.80 Troponin I 0.025 NT-Pro-B Natriuret Pep 4030 H 03/18/18 10:00 Creatine Kinase CK-MB (CK-2) 0.71 Troponin I 0.023 NT-Pro-B Natriuret Pep Impressions: Chest X-Ray 03/17/18 00:00 IMPRESSION: CARDIAC ENLARGEMENT. VASCULAR CONGESTION. Assessment & Plan - Diagnosis (1) Acute on chronic diastolic CHF (congestive heart failure) Is this a current diagnosis for this admission?: Yes Plan: Maintain on current medication management. D/C IV fluid used during his Insulin infusion therapy. (2) Diabetes mellitus type 2 in obese Is this a current diagnosis for this admission?: Yes Plan: Continue current medication management with dietary restrictions. Follow up on nurse educator consult for DM and CHF teaching. (3) Hypertension Qualifiers: Hypertension type: essential hypertension Qualified Code(s): I10 - Essential (primary) hypertension Is this a current diagnosis for this admission?: Yes Plan: D/C IV fluid. Maintain on all current anti HTN medication. Continue to monitor his blood pressure response. - Time Time Spent with patient: 25-34 minutes Medications reviewed and adjusted accordingly: Yes Anticipated discharge: Home Within: Other - Inpatient Certification Based on my medical assessment, after consideration of the patient's comorbidities, presenting symptoms, or acuity I expect that the services needed warrant INPATIENT care.: Yes I certify that my determination is in accordance with my understanding of Medicare's requirements for reasonable and necessary INPATIENT services [42 CFR 412.3e].: Yes Medical Necessity: Need Close Monitoring Due to Risk of Patient Decompensation, Need For Continuous Telemetry Monitoring, Need for Surgery Post Hospital Care: D/C Associate Account Manager Documentation - Plan Summary Plan Summary: See covering attending physician orders.
[2018-03-23 13:39] LABS: ANION GAP 7 (5-19); BLOOD UREA NITROGEN 19 mg/dL (7-20); CALCIUM 9.1 mg/dL (8.4-10.2); CARBON DIOXIDE 27 mmol/L (22-30); CHLORIDE 102 mmol/L (98-107); GLUCOSE 146 mg/dL (75-110); POTASSIUM 3.7 mmol/L (3.6-5.0); SODIUM 136.1 mmol/L (137-145)
[2018-03-23] MEDS: ATORVASTATIN CALCIUM 80 MG TABLET PO SCH (21:30)
[2018-03-24] MEDS: HEPARIN SOD (PORCINE) 5,000 UNIT/ML 1 ML SYRINGE SUBCUT SCH ×3 (07:06→22:05)
[2018-03-24] MEDS: BUMETANIDE 1 MG TABLET PO SCH (08:11)
[2018-03-24] MEDS: HUM INSULIN NPH/REG INSULIN HM 100 UNIT/1 ML 3 ML SUBCUT SCH ×2 (08:12→17:00)
[2018-03-24] MEDS: METFORMIN HCL 500 MG TABLET PO SCH ×2 (08:12→17:00)
[2018-03-24] MEDS: AMLODIPINE BESYLATE 10 MG TABLET PO SCH (11:21)
[2018-03-24] MEDS: CARVEDILOL 12.5 MG TABLET PO SCH ×2 (11:21→20:44)
[2018-03-24] MEDS: SACUBITRIL/VALSARTAN 97 MG/103 MG TABLET PO SCH ×2 (11:21→17:00)
[2018-03-24] MEDS: ASPIRIN 81 MG TABLET, ENT COATED PO SCH (11:21)
[2018-03-24] MEDS: ISOSORBIDE MONONITRATE 60 MG TAB.ER.24H PO SCH (11:21)
[2018-03-24] MEDS: FAMOTIDINE INJ/PF 20 MG/2 ML SDV IV SCH ×2 (11:22→22:07)
[2018-03-24] MEDS: CLOBETASOL PROPIONATE 0.05% OINTMENT 15 GM TP PRN ×2 (13:22→22:06)
[2018-03-24] MEDS: INSULIN LISPRO 100 UNIT/ML 3 ML VIAL SUBCUT PRN ×2 (13:22→22:05)
--- NOTE | 2018-03-24 20:06 | PDOC DISCHARGE SUMMARY ---
General - Admit/Disc Date/PCP Admission Date/Primary Care Provider: 03/17/18 19:18 Discharge Date: 03/24/18 - Discharge Diagnosis (1) Hypertensive emergency Is this a current diagnosis for this admission?: Yes (2) Acute systolic heart failure Is this a current diagnosis for this admission?: Yes (3) Plaque psoriasis Is this a current diagnosis for this admission?: Yes (4) Left hemiplegia Is this a current diagnosis for this admission?: Yes (5) Personal history of DVT (deep vein thrombosis) Is this a current diagnosis for this admission?: Yes (6) Status post CVA Is this a current diagnosis for this admission?: Yes (7) Status post ventricular septal defect closure Is this a current diagnosis for this admission?: Yes (8) Coronary artery disease Is this a current diagnosis for this admission?: Yes (9) Urticaria Is this a current diagnosis for this admission?: Yes - Additional Information Resuscitation Status: Full Code Discharge Diet: Cardiac, Diabetic Discharge Activity: Activity As Tolerated, Balance Activity w/Rest, Slowly Increase Activity, Weigh Daily Prescriptions: Sacubitril/Valsartan [Entresto 97 mg/103 mg Tablet] 1 tab PO BID #90 tablet Home Medications: Albuterol Sulfate [Proair HFA] 2 puff IH Q4HP PRN 09/25/17 Aspirin [Aspirin EC] 81 mg PO DAILY 09/25/17 Bumetanide [Bumex 2 mg Tablet] 1 tab PO QAM 09/25/17 Clobetasol Propionate [Temovate 0.05% Cream 15 gm] 1 applic TP BIDP PRN Metformin HCl [Glucophage 500 mg Tablet] 500 mg PO BIDBS 09/25/17 Methotrexate Sodium [Methotrexate] 10 mg PO FR@1000 09/25/17 Nitroglycerin [Nitrostat] 0.4 mg SL Q5MP PRN 09/25/17 Amlodipine Besylate 10 mg PO DAILY #30 tab 01/16/18 Atorvastatin Calcium [Lipitor 80 mg Tablet] 80 mg PO QHS #30 tablet 01/16/18 Carvedilol [Coreg 25 mg Tablet] 1 tab PO BID 03/17/18 Hydrocodone Bit/Acetaminophen [Hydrocodon-Acetaminophn 10-325] 1 each PO Q6HP PRN 03/17/18 Insulin Aspart [Novolog Flexpen] 10 unit SQ DAILY 03/17/18 Insulin NPH Hum/Reg Insulin Hm [Novolin 70-30 100 Unit/ml Vial] 0 unit SQ .SLIDING SCALE 03/17/18 Isosorbide Mononitrate [Imdur 60 mg Tablet.er] 60 mg PO DAILY 03/17/18 Amlodipine Besylate [Norvasc 10 mg Tablet] 10 mg PO DAILY tablet 03/24/18 Carvedilol [Coreg 12.5 mg Tablet] 25 mg PO Q12 tablet 03/24/18 Clobetasol Propionate [Temovate 0.05% Ointment 15 gm] 1 applic TP BIDP PRN tube 03/24/18 Sacubitril/Valsartan [Entresto 97 mg/103 mg Tablet] 1 tab PO BID #90 tablet 07/11 History of Present Illness History of Present Illness: SHARON JERONIMO is a 47 year old male, He has a history of poorly controlled hypertension, coronary artery disease, CVA, type 2 diabetes mellitus, severe plaquing psoriasis, he came to the emergency room for evaluation of progressive shortness of breath, lower extremity swelling. The blood pressure recorded in the emergency room was over 200 systolic, chest x-ray consistent with CHF, BNP was elevated. Patient is poorly compliant with medication, the insurance is also not helping out with payment for his medications. He was prescribed otelza for the treatment of very severe psoriasis but the insurance approve the drug but the patient is unable to afford the drug because it would cost him over $400 out of pocket expense which he cannot afford.Patient is presenting with hypertensive emergency with acute systolic heart failure Hospital Course Hospital Course: Patient was admitted for the management of hypertensive emergency in the setting of acute systolic heart failure. 2D echo was done, it demonstrated estimated ejection fraction of left ventricle, 35-40%. He was initially treated with intravenous nitro infusion with good response he also was started on Entresto for CHF. He developed a hypersensitivity reaction felt to be due to cyclobenzaprine , he was treated with IV Solu-Medrol, Pepcid and Benadryl.He has severe plaque psoriasis Physical Exam Vital Signs: Temp Pulse Resp BP Pulse Ox 98.3 F 84 16 159/93 H 100 03/24/18 16:00 03/24/18 17:00 03/24/18 16:00 03/24/18 17:00 03/24/18 16:00 Intake & Output 03/23/18 03/24/18 03/25/18 06:59 06:59 06:59 Intake Total 278 1302 225 Output Total 900 850 400 Balance -622 452 -175 Weight 114.3 kg 111.2 kg General appearance: PRESENT: no acute distress Eye exam: PRESENT: PERRLA Respiratory exam: PRESENT: clear to auscultation bernardo Cardiovascular exam: PRESENT: +S1, +S2 GI/Abdominal exam: PRESENT: soft Neurological exam: PRESENT: alert, CN II-XII grossly intact Skin exam: PRESENT: other - Plaque psoriasis Results Laboratory Results: 03/20/18 04:10 03/23/18 13:14 03/17/18 03/17/18 03/18/18 22:20 22:20 04:05 Creatine Kinase 75 68 CK-MB (CK-2) 0.84 Troponin I 0.024 NT-Pro-B Natriuret Pep 03/18/18 03/18/18 03/18/18 04:05 04:05 10:00 Creatine Kinase 58 CK-MB (CK-2) 0.80 Troponin I 0.025 NT-Pro-B Natriuret Pep 4030 H 03/18/18 10:00 Creatine Kinase CK-MB (CK-2) 0.71 Troponin I 0.023 NT-Pro-B Natriuret Pep Impressions: Chest X-Ray 03/17/18 00:00 IMPRESSION: CARDIAC ENLARGEMENT. VASCULAR CONGESTION. Qualifiers - * PATIENT BEING DISCHARGED WITH ANY OF THE FOLLOWING DIAGNOSIS: No
[2018-03-24] MEDS: HYDROCODONE/ACETAMINOPHEN 10-325 MG TABLET PO PRN (20:41)
[2018-03-24] MEDS: ATORVASTATIN CALCIUM 80 MG TABLET PO SCH (22:06)
[2018-03-25] MEDS: HEPARIN SOD (PORCINE) 5,000 UNIT/ML 1 ML SYRINGE SUBCUT SCH (05:02)
[2018-03-25 07:40] VITALS: BP 149/99
[2018-03-25] MEDS: BUMETANIDE 1 MG TABLET PO SCH (07:48)
[2018-03-25] MEDS: HUM INSULIN NPH/REG INSULIN HM 100 UNIT/1 ML 3 ML SUBCUT SCH (07:49)
== END 2018-03-25 09:30 | disposition home or self-care (01) | DRG 304 ==
LOC: ER 11:09 → EH 19:18 → 3W 03-18 00:50
PROVIDERS: ADMIT Internal Medicine; ATTEND Internal Medicine
DX: I16.1 Hypertensive emergency (principal); I50.43 Acute on chronic combined systolic (congestive) and diastolic (congestive) heart failure; I69.354 Hemiplegia and hemiparesis following cerebral infarction affecting left non-dominant side; I11.0 Hypertensive heart disease with heart failure; L40.0 Psoriasis vulgaris; I25.10 Atherosclerotic heart disease of native coronary artery without angina pectoris; L50.9 Urticaria, unspecified; E11.9 Type 2 diabetes mellitus without complications; T48.1X5A Adverse effect of skeletal muscle relaxants [neuromuscular blocking agents], initial encounter; E78.00 Pure hypercholesterolemia, unspecified; G43.909 Migraine, unspecified, not intractable, without status migrainosus; K21.9 Gastro-esophageal reflux disease without esophagitis; M19.90 Unspecified osteoarthritis, unspecified site; L29.9 Pruritus, unspecified; E66.9 Obesity, unspecified; Z68.33 Body mass index [BMI] 33.0-33.9, adult; I25.2 Old myocardial infarction; Z95.5 Presence of coronary angioplasty implant and graft; Z91.14 Patient's other noncompliance with medication regimen; Z86.718 Personal history of other venous thrombosis and embolism; Z79.82 Long term (current) use of aspirin; Z79.4 Long term (current) use of insulin; Z79.899 Other long term (current) drug therapy; Z59.8 Other problems related to housing and economic circumstances; Z88.8 Allergy status to other drugs, medicaments and biological substances; Z91.013 Allergy to seafood; Z88.6 Allergy status to analgesic agent; Z82.61 Family history of arthritis; Z82.49 Family history of ischemic heart disease and other diseases of the circulatory system; Z82.3 Family history of stroke; Z83.3 Family history of diabetes mellitus; Z80.9 Family history of malignant neoplasm, unspecified
CPT/HCPCS: 36415; 71046; 80048; 80053; 80061; 80076; 80307; 81001; 82140; 82150; 82550; 82553; 82962; 83036; 83690; 83735; 83880; 84100; 84439; 84443; 84484; 85025; 85610; 85730; 87040; 87086; 93005; 93010; 93306; 96374; 99291; J0360; J1200; J1644; J1815; J1940; J2930; J3490; J7050; S0028

== ENCOUNTER 2018-04-14 20:05 | Inpatient (IN) | payer MEDICARE, MEDICAID ==
[2018-04-14] MEDS ORDERED: ASPIRIN 81 MG TABLET, CHEWABLE PO ONE (20:31)
[2018-04-14 21:23] LABS: ABSOLUTE BASOPHILS # (AUTO) 0.1 10^3/uL (0.0-0.2); ABSOLUTE EOSINOPHILS # (AUTO) 0.4 10^3/uL (0.0-0.6); ABSOLUTE MONOCYTES (AUTO) 0.4 10^3/uL (0.1-1.4); ABSOLUTE NEUT (AUTO) 3.4 10^3/uL (1.7-8.2); BASOPHILS % (AUTO) 1.2 % (0-2); EOSINOPHILS % (AUTO) 6.8 % (0-6); HEMATOCRIT 35.2 % (37.9-51.0); HEMOGLOBIN 11.7 g/dL (13.5-17.0); LYMPHOCYTES % (AUTO) 19.6 % (13-45); MEAN CORPUSCULAR HEMOGLOBIN 27.8 pg (27.0-33.4); MEAN CORPUSCULAR HGB CONC 33.2 g/dL (32.0-36.0); MEAN CORPUSCULAR VOLUME 84 fl (80-97); MONOCYTES % (AUTO) 6.9 % (3-13); PLATELET COUNT 290 10^3/uL (150-450); RED CELL DISTRIBUTION WIDTH 16.6 % (11.5-14.0); SEGMENTED NEUTROPHILS % (AUTO) 65.5 % (42-78); TOTAL CELLS COUNTED % (AUTO) 100 %; WHITE BLOOD COUNT 5.2 10^3/uL (4.0-10.5)
--- NOTE | 2018-04-14 21:37 | RADIOLOGY REPORT (SQ) ---
EXAM DESCRIPTION: XR CHEST 1 VIEW COMPLETED DATE/TME: 04/14/2018 20:32 CLINICAL HISTORY: 47 years, Male, chest pain COMPARISON: EXAM DESCRIPTION: CLINICAL HISTORY: chest pain COMPARISON: None. FINDINGS: Single view of the chest is submitted. Cardiac silhouette is enlarged. There is bilateral pulmonary edema. No focal consolidation. IMPRESSION: Cardiomegaly and pulmonary edema. NUMBER OF VIEWS: TECHNIQUE: LIMITATIONS: None. FINDINGS: IMPRESSION: 2010 [facility] [employer]- All Rights Reserved
[2018-04-14 21:44] LABS: ALANINE AMINOTRANSFERASE 13 U/L (21-72); ALBUMIN 3.3 g/dL (3.5-5.0); ALKALINE PHOSPHATASE 92 U/L (38-126); ANION GAP 8 (5-19); ASPARTATE AMINO TRANSFERASE 17 U/L (17-59); BILIRUBIN,DIRECT 0.3 mg/dL (0.0-0.4); BILIRUBIN,TOTAL 0.6 mg/dL (0.2-1.3); BLOOD UREA NITROGEN 17 mg/dL (7-20); CALCIUM 8.6 mg/dL (8.4-10.2); CARBON DIOXIDE 27 mmol/L (22-30); CHLORIDE 98 mmol/L (98-107); CREATINE KINASE 92 U/L (55-170); GLUCOSE 283 mg/dL (75-110); POTASSIUM 4.1 mmol/L (3.6-5.0); SODIUM 132.9 mmol/L (137-145); TOTAL PROTEIN 6.8 g/dL (6.3-8.2)
[2018-04-14 21:55] LABS: CREATINE KINASE MB 1.1 ng/mL (<4.55); TROPONIN I 0.03 ng/mL
--- NOTE | 2018-04-14 22:10 | ER Document Report ---
ED General - General Chief Complaint: Other Stated Complaint: CHEST PAIN, COUGHING UP BLOOD, SHORTNESS OF BREATH Time Seen by Provider: 04/14/18 22:09 Notes: Patient is a pleasant 47-year-old -Luxembour[place] male who presents with worsening difficulty breathing and dyspnea. He also feels like he is collecting more fluid. I saw him approximately a week ago and increase his Bumex and is to follow-up with Dr. Ricci. Says he was starting to urinate out more fluid however he then start increasing more fluid and has had some difficulty breathing start coughing. Today coughed up to blood clots. Since then his cough more but no further bleeding has occurred. No fevers. No vomiting but has had some nausea. No diarrhea. Some chest pain. Ejection fraction is 35% on his last echo per the patient's history. TRAVEL OUTSIDE OF THE [place] IN LAST 30 DAYS: No - Related Data Allergies/Adverse Reactions: Iodine and Iodide Containing Produc Allergy (Severe, Verified 04/14/18 22:32) Anaphylaxis diazepam [From Valium] Allergy (Verified 04/02/18 23:31) diphenhydramine Allergy (Verified 04/02/18 23:31) furosemide [From Lasix] Allergy (Verified 04/02/18 23:31) morphine Allergy (Verified 04/02/18 23:31) shellfish derived Allergy (Verified 04/02/18 23:31) Past Medical History - Social History Smoking Status: Never Smoker Frequency of alcohol use: None Drug Abuse: None Family History: CAD Patient has suicidal ideation: No Patient has homicidal ideation: No - Past Medical History Cardiac Medical History: Reports: Hx Congestive Heart Failure Renal/ Medical History: Denies: Hx Peritoneal Dialysis Review of Systems - Review of Systems Notes: My Normal Review Basic REVIEW OF SYSTEMS: CONSTITUTIONAL : Denies fever, chills, or sweats. Denies recent illness. EENT: Denies eye, ear, throat, or mouth pain or symptoms. Denies nasal or sinus congestion. CARDIOVASCULAR: Some chest pain RESPIRATORY: Distal to breathing GASTROINTESTINAL: Denies abdominal pain. Nausea. MUSCULOSKELETAL: Denies neck or back pain or joint pain or swelling. SKIN: Denies rash or skin lesions. HEMATOLOGIC : Denies easy bruising or bleeding. LYMPHATIC: Chronic recurrent lower extremity edema NEUROLOGICAL: Denies altered mental status or loss of consciousness. Denies headache. Denies weakness or paralysis or loss of use of either side. Denies problems with gait or speech. Denies sensory or motor loss. ALL OTHER SYSTEMS REVIEWED AND NEGATIVE. Physical Exam - Vital signs Vitals: Temp Pulse Resp BP Pulse Ox 98.4 F 101 H 18 187/118 H 94 04/14/18 20:14 04/14/18 20:14 04/14/18 20:14 04/14/18 20:14 04/14/18 20:14 - Notes Notes: General Appearance: Well nourished, alert, cooperative, no acute distress, no obvious discomfort. Vitals: reviewed, See vital signs table. Head: no swelling or tenderness to the head Eyes: PERRL, EOMI, Conjuctiva clear Mouth: No decreasd moisture Throat: No tonsillar inflammation, No airway obstruction, No lymphadenopathy Lungs: No wheezing, No rales, No rhonci, No accessory muscle use, good air exchange bilaterally. Heart: Normal rate, Regular rythm, No murmur, no rub Abdomen: Normal BS, soft, No rigidity, No abdominal tenderness, No guarding, no rebound, no abdominal masses, no organomegaly Extremities: strength 5/5 in all extremities, good pulses in all extremities, no swelling or tenderness in the extremities, 3+ bilateral lower extremity edema.. Skin: warm, dry, appropriate color, rash over legs. Neuro: speech clear, oriented x 3, normal affect, responds appropriately to questions. Course - Re-evaluation Re-evalutation: 04/15/18 00:14 My initial evaluation of the patient he did not have any abdominal pain. For me the patient now says he is getting some dental pain. On exam he has just some generalized mild abdominal pain which he says is been coming on for several days. I does not feel acutely surgical. His labs are normal appearing. I did give him a GI cocktail except sometimes when he sits a certain way the pain radiated up into his chest. GI cocktail just numbed his mouth. I did give him some for the pain medicine make him more comfortable. Vital signs remained stable except for hypertension. His blood pressure is chronically systolically usually over 200. Currently his systolic blood pressures in the 190s. He says he did take all his blood pressure medications as he usually does. I spoke with Dr. Ricci about admission. Patient mainly because of his pulmonary edema that is worsening as well as hypoxemia. When he is off oxygen his oxygen saturations low 90s. He normally was 2 L. Frequent on 2 L his oxygen saturation still will be in the low 90s unless he is sitting up and then I will increase. If he lays flat he becomes hypoxic. - Vital Signs Vital signs: Temp Pulse Resp BP Pulse Ox 98.4 F 101 H 22 H 193/120 H 99 04/14/18 20:14 04/14/18 20:14 04/14/18 21:18 04/14/18 21:18 04/14/18 21:18 - Laboratory Result Diagrams: 04/14/18 21:14 04/14/18 21:14 Laboratory results interpreted by me: 04/14/18 04/14/18 21:14 21:14 RBC 4.20 L Hgb 11.7 L Hct 35.2 L RDW 16.6 H Eosinophils % 6.8 H Sodium 132.9 L Glucose 283 H ALT 13 L Albumin 3.3 L - EKG Interpretation by Me Additional EKG results interpreted by me: 04/14/18 22:10 EKG is reviewed and interpreted by me. EKG shows sinus rhythm with a rate of [address] segment elevation or depression. Patient does have some mild T wave inversions in lateral precordial leads which are unchanged comparison to his previous EKG from April 02, 2018. HI interval is within normal range. QRS duration is borderline. QT interval is prolonged. Discharge - Discharge Clinical Impression: Cough, Hypoxemia Abdominal pain Qualifiers: Abdominal location: generalized Qualified Code(s): R10.84 - Generalized abdominal pain High blood pressure Qualifiers: Hypertension type: unspecified Qualified Code(s): I10 - Essential (primary) hypertension Condition: Stable Disposition: ADMITTED OBSERVATION Admitting Provider: Leann Unit Admitted: Telemetry Referrals: KARTHIK RICCI MD [Primary Care Provider] - Follow up as needed
--- NOTE | 2018-04-14 23:22 | EKG REPORT ---
SEVERITY:- ABNORMAL ECG - SINUS RHYTHM PROBABLE LEFT ATRIAL ABNORMALITY LEFT AXIS DEVIATION ABNORMAL T, CONSIDER ISCHEMIA, LATERAL LEADS BORDERLINE PROLONGED QT INTERVAL : Confirmed by: Jenifer Khan 14-Apr-2018 23:21:14
[2018-04-14] MEDS ORDERED: METOCLOPRAMIDE HCL ORAL SOLN 10 MG/10 ML UDCUP PO ONE (23:49)
[2018-04-14] MEDS ORDERED: MAG HYDROX/AL HYDROX/SIMETH SUSP 30 ML UDCUP PO ONE (23:49)
[2018-04-14] MEDS ORDERED: LIDOCAINE 2% VISCOUS SOLN 20 ML UDCUP PO ONE (23:49)
[2018-04-15] MEDS ORDERED: BUMETANIDE INJ/PF 1 MG/4 ML SDV IV ONE (00:06)
[2018-04-15] MEDS ORDERED: FENTANYL CITRATE INJ/PF 100 MCG/2 ML AMPUL IV ONE (00:14)
[2018-04-15] MEDS ORDERED: NORMAL SALINE 250 ML with FUROSEMIDE 250 MG IV PRN ×2 (00:20)
[2018-04-15] MEDS ORDERED: NITROGLYCERIN/D5W 50 MG/250 ML RTUINJ IV PRN (00:21)
[2018-04-15] MEDS ORDERED: GLUCAGON,HUMAN RECOMB 1 MG INJ IM PRN (00:24)
[2018-04-15] MEDS ORDERED: DEXTROSE 40% GEL 15 GM TUBE PO PRN ×2 (00:24)
[2018-04-15] MEDS ORDERED: DEXTROSE 50%-WATER 25 GM/50 ML DISP.SYRIN IV PRN ×2 (00:24)
[2018-04-15 00:33] LABS: INTERNATIONAL RATION (INR) 1.17; PROTHROMBIN TIME 15.5 SEC (11.4-15.4)
[2018-04-15 00:34] LABS: PARTIAL THROMBOPLASTIN TIME 37.9 SEC (23.5-35.8)
[2018-04-15 00:58] LABS: FREE T4 (FREE THYROXINE) 1.16 ng/dL (0.78-2.19)
[2018-04-15 01:11] LABS: THYROID STIMULATING HORMONE 2.1 uIU/mL (0.47-4.68)
[2018-04-15 01:13] LABS: CREATINE KINASE MB 1.13 ng/mL (<4.55); TROPONIN I 0.032 ng/mL
[2018-04-15 05:09] LABS: APPEARANCE,URINE CLEAR; BILIRUBIN,URINE NEGATIVE (NEGATIVE); COLOR,URINE COLORLESS; GLUCOSE, URINE NEGATIVE (NEGATIVE); KETONES,URINE NEGATIVE (NEGATIVE); LEUKOCYTE ESTERASE,URINE NEGATIVE (NEGATIVE); NITRITE,URINE NEGATIVE (NEGATIVE); PROTEIN,URINE 30 mg/dL (NEGATIVE); URINE SPECIFIC GRAVITY 1.006; UROBILINOGEN,URINE NEGATIVE mg/dL (<2.0)
[2018-04-15 06:55] LABS: CREATINE KINASE MB 1.29 ng/mL (<4.55); TROPONIN I 0.025 ng/mL
[2018-04-15] MEDS ORDERED: NICARDIPINE HCL RTU, ISO-OS 20 MG/200 ML RTUINJ IV PRN (07:40)
--- NOTE | 2018-04-15 08:25 | EKG REPORT ---
SEVERITY:- ABNORMAL ECG - SINUS RHYTHM PROBABLE LEFT ATRIAL ABNORMALITY NONSPECIFIC T ABNORMALITIES, LATERAL LEADS PROLONGED QT INTERVAL : Confirmed by: Jenifer Khan 15-Apr-2018 08:24:59
--- NOTE | 2018-04-15 08:25 | EKG REPORT ---
SEVERITY:- ABNORMAL ECG - SINUS RHYTHM LEFT ATRIAL ABNORMALITY LEFT AXIS DEVIATION LEFT VENTRICULAR HYPERTROPHY BORDERLINE PROLONGED QT INTERVAL : Confirmed by: Jenifer Khan 15-Apr-2018 08:24:47
[2018-04-15] MEDS: OXYCODONE-ACETAMINOPHEN 5-325 MG TABLET PO PRN ×3 (09:26→20:43)
[2018-04-15] MEDS: INSULIN LISPRO 100 UNIT/ML 3 ML VIAL SUBCUT PRN ×3 (11:58→20:51)
[2018-04-15] MEDS: BUMETANIDE INJ/PF 1 MG/4 ML SDV IV SCH ×2 (11:58→22:26)
[2018-04-15] MEDS: ENOXAPARIN SODIUM INJ 40 MG/0.4 ML DISP.SYRIN SUBCUT SCH (11:59)
[2018-04-15 13:19] LABS: CREATINE KINASE MB 1.25 ng/mL (<4.55); TROPONIN I 0.015 ng/mL
[2018-04-15] MEDS: VALSARTAN 160 MG TABLET PO SCH (14:08)
[2018-04-15] MEDS: HYDRALAZINE HCL 50 MG TABLET PO SCH ×2 (14:09→22:25)
[2018-04-15] MEDS: AMLODIPINE BESYLATE 10 MG TABLET PO SCH (14:09)
[2018-04-15] MEDS: CARVEDILOL 12.5 MG TABLET PO SCH ×2 (14:09→22:25)
[2018-04-15 15:27] LABS: ALANINE AMINOTRANSFERASE 10 U/L (21-72); ALBUMIN 3.4 g/dL (3.5-5.0); ALKALINE PHOSPHATASE 92 U/L (38-126); ANION GAP 8 (5-19); ASPARTATE AMINO TRANSFERASE 15 U/L (17-59); BILIRUBIN,DIRECT 0.3 mg/dL (0.0-0.4); BILIRUBIN,TOTAL 0.8 mg/dL (0.2-1.3); BLOOD UREA NITROGEN 14 mg/dL (7-20); CALCIUM 8.6 mg/dL (8.4-10.2); CARBON DIOXIDE 31 mmol/L (22-30); CHLORIDE 97 mmol/L (98-107); GLUCOSE 238 mg/dL (75-110); POTASSIUM 3.8 mmol/L (3.6-5.0); SODIUM 135.5 mmol/L (137-145); TOTAL PROTEIN 6.8 g/dL (6.3-8.2)
--- NOTE | 2018-04-15 18:24 | XCELERA REPORT ---
[address] [address] Transthoracic Echocardiogram Report Name: SHARON JERONIMO Age: 47 yrs Gender: Male : 1970 Patient Status: Inpatient Patient Location: ICU^610^A Study Date: 04/15/2018 10:21 AM Height: 71 in Weight: 255 lb BSA: 2.3 m2 Procedure: A complete two-dimensional transthoracic echocardiogram was performed (2D, M-mode, spectral and color flow Doppler). The study was technically adequate with some images being suboptimal in quality. Reason For Study: chf Ordering Physician: KARTHIK RICCI Performed By: Geraldine Aponte Interpretation Summary LV EF is 35% Left ventricular systolic function is moderately reduced. There is moderate concentric left ventricular hypertrophy. Doppler measurements suggest pseudonormalized left ventricular relaxation, which is associated with grade II/IV or mild to moderate diastolic dysfunction The left ventricle is grossly normal size. There is moderate global hypokinesis of the left ventricle. The right ventricular systolic function is normal. The left atrium is moderately dilated. The right atrium is normal in size There is a trace amount of mitral regurgitation There is no mitral valve stenosis. There is a mild amount of aortic regurgitation There is no aortic valve stenosis There is a trace to mild amount of tricuspid regurgitation There is moderate pulmonary hypertension by echo Best estimated right ventricular systolic pressure is elevated at 50-60mmHg. The aortic root is not well visualized but is probably normal size. The inferior vena cava appeared normal and decreased > 50% with respiration (RAP 5-10 mmHg) Minimal pericardial effusion. MMode/2D Measurements & Calculations RVDd: 3.4 cm LVIDd: 5.7 cm FS: 17.4 % Ao root diam: 3.3 cm IVSd: 1.7 cm LVIDs: 4.7 cm EDV(Teich): 157.3 ml Ao root area: 8.3 cm2 LVPWd: 1.9 cm ESV(Teich): 100.9 ml LA dimension: 4.6 cm EF(Teich): 35.9 % Doppler Measurements & Calculations MV E max bishnu: MV P1/2t max bishnu: Ao V2 max: AI max bishnu: 148.7 cm/sec 149.3 cm/sec 143.3 cm/sec 452.5 cm/sec MV A max bishnu: MV P1/2t: 50.1 msec Ao max PG: AI max P.0 cm/sec MVA(P1/2t): 4.4 cm2 8.2 mmHg 81.9 mmHg MV E/A: 2.0 MV dec slope: AI dec slope: 231.4 cm/sec2 872.5 cm/sec2 AI P1/2t: MV dec time: 0.17 sec 572.6 msec LV V1 max PG: PA V2 max: TR max bishnu: AV P1/2t-pr_phl: 4.4 mmHg 94.8 cm/sec 347.5 cm/sec 572.6 msec LV V1 max: PA max P.6 mmHg TR max P.9 cm/sec 48.3 mmHg MV P1/2t-pr_phl: 50.1 msec Left Ventricle The left ventricle is grossly normal size. There is moderate concentric left ventricular hypertrophy. Left ventricular systolic function is moderately reduced. LV EF is 35%. Doppler measurements suggest pseudonormalized left ventricular relaxation, which is associated with grade II/IV or mild to moderate diastolic dysfunction. There is moderate global hypokinesis of the left ventricle. Right Ventricle The right ventricle is grossly normal size. There is normal right ventricular wall thickness. The right ventricular systolic function is normal. Atria The right atrium is normal in size. The left atrium is moderately dilated. Interarterial septum not well visualized and not well dopplered. Cannot comment on ASD/PFO presence. Mitral Valve The mitral valve leaflets are sclerotic, but show no functional abnormalities. There is no mitral valve stenosis. There is a trace amount of mitral regurgitation. Aortic Valve The aortic valve is not well visualized secondary to technical limitations. There is no aortic valve stenosis. There is a mild amount of aortic regurgitation. Tricuspid Valve The tricuspid valve is not well visualized secondary to technical limitations. There is no tricuspid stenosis. There is a trace to mild amount of tricuspid regurgitation. There is moderate pulmonary hypertension by echo. Best estimated right ventricular systolic pressure is elevated at 50-60mmHg. Pulmonic Valve The pulmonic valve is not well visualized. Great Vessels The aortic root is not well visualized but is probably normal size. The inferior vena cava appeared normal and decreased > 50% with respiration (RAP 5-10 mmHg). Effusions Minimal pericardial effusion. : KARTHIK RICCI > Jenifer Khan
--- NOTE | 2018-04-15 20:51 | PDOC H&P ---
History of Present Illness Admission Date/PCP: 04/15/18 00:29 KARTHIK RICCI MD History of Present Illness: SHARON JERONIMO is a 47 year old male, He has a history of hypertensive cardiomyopathy, coronary artery disease he came to the emergency room for evaluation of shortness of breath, in the emergency room was an acute CHF, the BNP was elevated, the chest x-ray showed pulmonary edema, the blood pressure was over 200 systolic. I was called by the ED physician to admit this patient to the hospital. Part of the challenge for this patient is compliant with medications,, the last time he was admitted he also had CHF he was prescribed entresto he said the medical insurance did not approve it. He was started on intravenous nitro and emergency room, could not get blood pressure control, was transferred to ICU to start nicardipine infusion. Patient blood pressure has improved on his regular home medications. 2D echo was done there is concentric left ventricular hypertrophy, EF was 35%, grade 2 diastolic heart failure Past Medical History Cardiac Medical History: Reports: Coronary Artery Disease, Hypertension, Other - Chronic diastolic and systolic heart failure Endocrine Medical History: Reports: Diabetes Mellitus Type 2 Skin Medical History: Reports: Psoriasis Social History Smoking Status: Unknown if Ever Smoked Frequency of Alcohol Use: None Hx Recreational Drug Use: No Drugs: None Hx Prescription Drug Abuse: No - Advance Directive Resuscitation Status: Full Code Family History Family History: CAD Parental Family History Reviewed: Yes Children Family History Reviewed: Yes Sibling(s) Family History Reviewed.: Yes Medication/Allergy Home Medications: Hydrocodone Bit/Acetaminophen [Hydrocodon-Acetaminophn 10-325] 1 each PO Q8HP PRN 04/15/18 Valsartan/Hydrochlorothiazide [Valsartan-Hctz 320-12.5 mg Tab] 1 each PO DAILY 04/15/18 Allergies/Adverse Reactions: Iodine and Iodide Containing Produc Allergy (Severe, Verified 04/14/18 22:32) Anaphylaxis diazepam [From Valium] Allergy (Verified 04/02/18 23:31) diphenhydramine Allergy (Verified 04/02/18 23:31) furosemide [From Lasix] Allergy (Verified 04/02/18 23:31) morphine Allergy (Verified 04/02/18 23:31) shellfish derived Allergy (Verified 04/02/18 23:31) Review of Systems Constitutional: PRESENT: anorexia Eyes: ABSENT: visual disturbances Ears: ABSENT: hearing changes Cardiovascular: PRESENT: dyspnea on exertion, orthropnea Respiratory: ABSENT: cough, hemoptysis Gastrointestinal: ABSENT: abdominal pain, constipation, diarrhea, hematemesis, hematochezia, nausea, vomiting Genitourinary: ABSENT: dysuria, hematuria Musculoskeletal: ABSENT: joint swelling Integumentary: ABSENT: rash, wounds Neurological: ABSENT: abnormal gait, abnormal speech, confusion, dizziness, focal weakness, syncope Psychiatric: ABSENT: anxiety, depression, homidical ideation, suicidal ideation Endocrine: ABSENT: cold intolerance, heat intolerance, menstrual abnormalities, polydipsia, polyuria Hematologic/Lymphatic: ABSENT: easy bleeding, easy bruising, lymphadenopathy Physical Exam Vital Signs: Temp Pulse Resp BP Pulse Ox 99 F 73 18 136/98 H 98 04/15/18 19:54 04/15/18 18:00 04/15/18 18:00 04/15/18 18:00 04/15/18 18:00 Intake & Output 04/14/18 04/15/18 04/16/18 06:59 06:59 06:59 Intake Total 17 Output Total 1120 Balance -1103 Weight 166.2 kg General appearance: PRESENT: mild distress Head exam: PRESENT: atraumatic, normocephalic Eye exam: PRESENT: PERRLA Neck exam: PRESENT: full ROM Respiratory exam: PRESENT: rales, rhonchi Cardiovascular exam: PRESENT: RRR, +S1, +S2 Pulses: PRESENT: normal dorsalis pedis pul, +2 pedal pulses bilateral Vascular exam: PRESENT: normal capillary refill GI/Abdominal exam: PRESENT: normal bowel sounds, soft Rectal exam: PRESENT: deferred Neurological exam: PRESENT: alert, CN II-XII grossly intact Skin exam: PRESENT: dry, intact, warm. ABSENT: cyanosis, rash Results Laboratory Results: 04/15/18 14:52 04/15/18 04/15/18 04/15/18 00:38 04:50 14:52 Sodium 135.5 L Potassium 3.8 Chloride 97 L Carbon Dioxide 31 H Anion Gap 8 BUN 14 Creatinine 1.03 Est GFR ( Amer) > 60 Est GFR (Non-Af Amer) > 60 Glucose 238 H Calcium 8.6 Magnesium 1.7 Total Bilirubin 0.8 AST 15 L ALT 10 L Alkaline Phosphatase 92 Total Protein 6.8 Albumin 3.4 L Urine Color COLORLESS Urine Appearance CLEAR Urine pH 5.0 Ur Specific [place] 1.006 Urine Protein 30 H Urine Glucose (UA) NEGATIVE Urine Ketones NEGATIVE Urine Blood NEGATIVE Urine Nitrite NEGATIVE Ur Leukocyte Esterase NEGATIVE Urine WBC (Auto) 0 04/15/18 04/15/18 04/15/18 00:38 00:38 06:18 Creatine Kinase 76 69 CK-MB (CK-2) 1.13 Troponin I 0.032 04/15/18 04/15/18 04/15/18 06:18 12:30 12:30 Creatine Kinase 64 CK-MB (CK-2) 1.29 1.25 Troponin I 0.025 0.015 Impressions: Chest X-Ray 04/14/18 20:32 IMPRESSION: Cardiomegaly and pulmonary edema. NUMBER OF VIEWS: TECHNIQUE: LIMITATIONS: None. FINDINGS: IMPRESSION: 2010 [facility]- All Rights Reserved Assessment & Plan - Diagnosis (1) Acute combined systolic and diastolic heart failure Is this a current diagnosis for this admission?: Yes Plan: Start anti-CHF regimen (2) Hypertensive emergency Is this a current diagnosis for this admission?: Yes Plan: Start antihypertensive regimen (3) Pulmonary hypertension Is this a current diagnosis for this admission?: Yes (4) Diabetes mellitus Qualifiers: Diabetes mellitus type: type 2 Diabetes mellitus half-way insulin use: without laborer marine terminal use Diabetes mellitus complication status: with unspecified complications Qualified Code(s): E11.8 - Type 2 diabetes mellitus with unspecified complications Is this a current diagnosis for this admission?: Yes
[2018-04-15] MEDS ORDERED: HYDROMORPHONE HCL INJ/PF 2 MG/ML AMPULE IV PRN (22:55)
[2018-04-16 04:08] LABS: ABSOLUTE BASOPHILS # (AUTO) 0.1 10^3/uL (0.0-0.2); ABSOLUTE EOSINOPHILS # (AUTO) 0.2 10^3/uL (0.0-0.6); ABSOLUTE LYMPHOCYTES (AUTO) 1.2 10^3/uL (0.5-4.7); ABSOLUTE MONOCYTES (AUTO) 0.3 10^3/uL (0.1-1.4); ABSOLUTE NEUT (AUTO) 2.9 10^3/uL (1.7-8.2); BASOPHILS % (AUTO) 1.2 % (0-2); EOSINOPHILS % (AUTO) 5.3 % (0-6); HEMATOCRIT 32.6 % (37.9-51.0); HEMOGLOBIN 10.9 g/dL (13.5-17.0); LYMPHOCYTES % (AUTO) 25.1 % (13-45); MEAN CORPUSCULAR HEMOGLOBIN 27.5 pg (27.0-33.4); MEAN CORPUSCULAR HGB CONC 33.4 g/dL (32.0-36.0); MEAN CORPUSCULAR VOLUME 83 fl (80-97); MONOCYTES % (AUTO) 7.2 % (3-13); PLATELET COUNT 279 10^3/uL (150-450); RED BLOOD COUNT 3.96 10^6/uL (4.35-5.55); RED CELL DISTRIBUTION WIDTH 16.3 % (11.5-14.0); SEGMENTED NEUTROPHILS % (AUTO) 61.2 % (42-78); TOTAL CELLS COUNTED % (AUTO) 100 %; WHITE BLOOD COUNT 4.7 10^3/uL (4.0-10.5)
[2018-04-16 04:29] LABS: ALANINE AMINOTRANSFERASE 16 U/L (21-72); ALKALINE PHOSPHATASE 86 U/L (38-126); ASPARTATE AMINO TRANSFERASE 10 U/L (17-59); BILIRUBIN,DIRECT 0.3 mg/dL (0.0-0.4); BILIRUBIN,TOTAL 0.8 mg/dL (0.2-1.3); TOTAL PROTEIN 6.2 g/dL (6.3-8.2)
[2018-04-16] MEDS: HYDRALAZINE HCL 50 MG TABLET PO SCH ×3 (06:50→22:48)
[2018-04-16] MEDS: INSULIN LISPRO 100 UNIT/ML 3 ML VIAL SUBCUT PRN ×4 (08:06→22:53)
[2018-04-16] MEDS: BUMETANIDE INJ/PF 1 MG/4 ML SDV IV SCH ×2 (09:16→22:49)
[2018-04-16] MEDS: AMLODIPINE BESYLATE 10 MG TABLET PO SCH (09:16)
[2018-04-16] MEDS: ENOXAPARIN SODIUM INJ 40 MG/0.4 ML DISP.SYRIN SUBCUT SCH (09:16)
[2018-04-16] MEDS: CARVEDILOL 12.5 MG TABLET PO SCH ×2 (09:17→22:44)
[2018-04-16] MEDS: VALSARTAN 160 MG TABLET PO SCH (09:17)
--- NOTE | 2018-04-16 10:44 | EKG REPORT ---
SEVERITY:- ABNORMAL ECG - SINUS RHYTHM PROBABLE LEFT ATRIAL ABNORMALITY LEFT AXIS DEVIATION ABNORMAL T, CONSIDER ISCHEMIA, ANT-LAT LEADS BORDERLINE PROLONGED QT INTERVAL : Confirmed by: Jenifer Khan 16-Apr-2018 10:44:12
[2018-04-16] MEDS: OXYCODONE-ACETAMINOPHEN 5-325 MG TABLET PO PRN (14:09)
--- NOTE | 2018-04-16 15:59 | PDOC PROGRESS REPORT ---
Subjective Progress Note for:: 04/16/18 Subjective:: Patient was seen by the bedside, he was very emotional today about his condition , very tearful Reason For Visit: HYPERTENSIVE EMERGENCY, ACUTE SYSTOLIC HEART Physical Exam Vital Signs: Temp Pulse Resp BP Pulse Ox 98.7 F 73 19 143/96 H 98 04/16/18 12:00 04/16/18 14:00 04/16/18 15:31 04/16/18 15:31 04/16/18 15:31 Intake & Output 04/15/18 04/16/18 04/17/18 06:59 06:59 06:59 Intake Total 17 Output Total 1670 600 Balance -1653 -600 Weight 116.6 kg General appearance: PRESENT: no acute distress Eye exam: PRESENT: PERRLA Respiratory exam: PRESENT: clear to auscultation bernardo Cardiovascular exam: PRESENT: +S1, +S2 GI/Abdominal exam: PRESENT: soft Neurological exam: PRESENT: alert Results Laboratory Results: 04/16/18 03:59 04/15/18 14:52 04/16/18 04/16/18 03:59 03:59 WBC 4.7 RBC 3.96 L Hgb 10.9 L Hct 32.6 L MCV 83 MCH 27.5 MCHC 33.4 RDW 16.3 H Plt Count 279 Seg Neutrophils % 61.2 Lymphocytes % 25.1 Monocytes % 7.2 Eosinophils % 5.3 Basophils % 1.2 Absolute Neutrophils 2.9 Absolute Lymphocytes 1.2 Absolute Monocytes 0.3 Absolute Eosinophils 0.2 Absolute Basophils 0.1 Total Bilirubin 0.8 AST 10 L ALT 16 L Alkaline Phosphatase 86 Total Protein 6.2 L Albumin 3.0 L 04/15/18 04/15/18 04/15/18 00:38 00:38 06:18 Creatine Kinase 76 69 CK-MB (CK-2) 1.13 Troponin I 0.032 04/15/18 04/15/18 04/15/18 06:18 12:30 12:30 Creatine Kinase 64 CK-MB (CK-2) 1.29 1.25 Troponin I 0.025 0.015 Impressions: Chest X-Ray 04/14/18 20:32 IMPRESSION: Cardiomegaly and pulmonary edema. NUMBER OF VIEWS: TECHNIQUE: LIMITATIONS: None. FINDINGS: IMPRESSION: 2010 [facility] [employer]- All Rights Reserved Assessment & Plan - Diagnosis (1) Acute combined systolic and diastolic heart failure Is this a current diagnosis for this admission?: Yes (2) Hypertensive emergency Is this a current diagnosis for this admission?: Yes (3) Pulmonary hypertension Is this a current diagnosis for this admission?: Yes (4) Diabetes mellitus Qualifiers: Diabetes mellitus type: type 2 Diabetes mellitus shelter insulin use: without shelter use Diabetes mellitus complication status: with unspecified complications Qualified Code(s): E11.8 - Type 2 diabetes mellitus with unspecified complications Is this a current diagnosis for this admission?: Yes - Plan Summary Plan Summary: Downgraded to IMCU
[2018-04-16] MEDS ORDERED: POLYETHYLENE GLYCOL 3350 POWDER 17 GM/1 PACKET PO SCH (18:00)
[2018-04-17 04:33] LABS: ABSOLUTE BASOPHILS # (AUTO) 0.1 10^3/uL (0.0-0.2); ABSOLUTE EOSINOPHILS # (AUTO) 0.4 10^3/uL (0.0-0.6); ABSOLUTE LYMPHOCYTES (AUTO) 1.1 10^3/uL (0.5-4.7); ABSOLUTE MONOCYTES (AUTO) 0.4 10^3/uL (0.1-1.4); ABSOLUTE NEUT (AUTO) 3.7 10^3/uL (1.7-8.2); BASOPHILS % (AUTO) 1.2 % (0-2); EOSINOPHILS % (AUTO) 7.1 % (0-6); HEMOGLOBIN 12.3 g/dL (13.5-17.0); LYMPHOCYTES % (AUTO) 19.1 % (13-45); MEAN CORPUSCULAR HEMOGLOBIN 27.5 pg (27.0-33.4); MEAN CORPUSCULAR HGB CONC 33.4 g/dL (32.0-36.0); MEAN CORPUSCULAR VOLUME 82 fl (80-97); MONOCYTES % (AUTO) 7.2 % (3-13); PLATELET COUNT 344 10^3/uL (150-450); RED BLOOD COUNT 4.49 10^6/uL (4.35-5.55); RED CELL DISTRIBUTION WIDTH 16.2 % (11.5-14.0); SEGMENTED NEUTROPHILS % (AUTO) 65.4 % (42-78); TOTAL CELLS COUNTED % (AUTO) 100 %; WHITE BLOOD COUNT 5.7 10^3/uL (4.0-10.5)
[2018-04-17] MEDS: HYDRALAZINE HCL 50 MG TABLET PO SCH ×3 (06:01→22:26)
[2018-04-17] MEDS: AMLODIPINE BESYLATE 10 MG TABLET PO SCH (10:39)
[2018-04-17] MEDS: VALSARTAN 160 MG TABLET PO SCH (10:40)
[2018-04-17] MEDS: CARVEDILOL 12.5 MG TABLET PO SCH ×2 (10:40→22:26)
[2018-04-17] MEDS: BUMETANIDE INJ/PF 1 MG/4 ML SDV IV SCH ×2 (10:40→22:26)
[2018-04-17] MEDS: ENOXAPARIN SODIUM INJ 40 MG/0.4 ML DISP.SYRIN SUBCUT SCH (10:41)
[2018-04-17] MEDS: INSULIN LISPRO 100 UNIT/ML 3 ML VIAL SUBCUT PRN ×2 (11:12→22:34)
[2018-04-17] MEDS: CLOBETASOL PROPIONATE 0.05% OINTMENT 15 GM TP SCH (19:42)
--- NOTE | 2018-04-17 20:34 | PDOC PROGRESS REPORT ---
Subjective Progress Note for:: 04/17/18 Subjective:: Patient is seen by the bedside, the blood pressure is better controlled. Patient's major problem is financial, he cannot afford his medication despite having insurance. He always present with systolic blood pressure over 200 but when he was admitted the blood pressure is usually well controlled Reason For Visit: HYPERTENSIVE EMERGENCY, ACUTE SYSTOLIC HEART Physical Exam Vital Signs: Temp Pulse Resp BP Pulse Ox 98.4 F 62 23 H 148/96 H 94 04/17/18 18:00 04/17/18 08:29 04/17/18 18:02 04/17/18 18:02 04/17/18 18:02 Intake & Output 04/16/18 04/17/18 04/18/18 06:59 06:59 06:59 Intake Total 17 1000 Output Total 1670 1350 550 Balance -1653 -1350 450 Weight 116.6 kg 114.6 kg General appearance: PRESENT: no acute distress Eye exam: PRESENT: PERRLA Respiratory exam: PRESENT: clear to auscultation bernardo Cardiovascular exam: PRESENT: +S1, +S2 GI/Abdominal exam: PRESENT: soft Neurological exam: PRESENT: alert Results Laboratory Results: 04/17/18 04:00 04/15/18 14:52 04/17/18 04:00 WBC 5.7 RBC 4.49 Hgb 12.3 L Hct 37.0 L MCV 82 MCH 27.5 MCHC 33.4 RDW 16.2 H Plt Count 344 Seg Neutrophils % 65.4 Lymphocytes % 19.1 Monocytes % 7.2 Eosinophils % 7.1 H Basophils % 1.2 Absolute Neutrophils 3.7 Absolute Lymphocytes 1.1 Absolute Monocytes 0.4 Absolute Eosinophils 0.4 Absolute Basophils 0.1 04/15/18 04/15/18 04/15/18 00:38 00:38 06:18 Creatine Kinase 76 69 CK-MB (CK-2) 1.13 Troponin I 0.032 04/15/18 04/15/18 04/15/18 06:18 12:30 12:30 Creatine Kinase 64 CK-MB (CK-2) 1.29 1.25 Troponin I 0.025 0.015 Impressions: Chest X-Ray 04/14/18 20:32 IMPRESSION: Cardiomegaly and pulmonary edema. NUMBER OF VIEWS: TECHNIQUE: LIMITATIONS: None. FINDINGS: IMPRESSION: 2010 [facility] [employer]- All Rights Reserved Assessment & Plan - Diagnosis (1) Acute combined systolic and diastolic heart failure Is this a current diagnosis for this admission?: Yes (2) Hypertensive emergency Is this a current diagnosis for this admission?: Yes (3) Pulmonary hypertension Is this a current diagnosis for this admission?: Yes (4) Diabetes mellitus Qualifiers: Diabetes mellitus type: type 2 Diabetes mellitus custodial insulin use: without superintendent marine oil terminal use Diabetes mellitus complication status: with unspecified complications Qualified Code(s): E11.8 - Type 2 diabetes mellitus with unspecified complications Is this a current diagnosis for this admission?: Yes - Plan Summary Plan Summary: Continue treatment
[2018-04-17 21:28] LABS: ALANINE AMINOTRANSFERASE 8 U/L (21-72); ALBUMIN 3.2 g/dL (3.5-5.0); ALKALINE PHOSPHATASE 82 U/L (38-126); ANION GAP 8 (5-19); ASPARTATE AMINO TRANSFERASE 10 U/L (17-59); BILIRUBIN,DIRECT 0.2 mg/dL (0.0-0.4); BILIRUBIN,TOTAL 0.5 mg/dL (0.2-1.3); BLOOD UREA NITROGEN 18 mg/dL (7-20); CALCIUM 8.6 mg/dL (8.4-10.2); CARBON DIOXIDE 31 mmol/L (22-30); CHLORIDE 98 mmol/L (98-107); GLUCOSE 181 mg/dL (75-110); POTASSIUM 3.5 mmol/L (3.6-5.0); SODIUM 137.4 mmol/L (137-145); TOTAL PROTEIN 6.6 g/dL (6.3-8.2)
[2018-04-18 04:28] LABS: ALANINE AMINOTRANSFERASE 17 U/L (21-72); ALBUMIN 3.1 g/dL (3.5-5.0); ALKALINE PHOSPHATASE 81 U/L (38-126); ANION GAP 10 (5-19); ASPARTATE AMINO TRANSFERASE 8 U/L (17-59); BILIRUBIN,DIRECT 0.2 mg/dL (0.0-0.4); BILIRUBIN,TOTAL 0.4 mg/dL (0.2-1.3); BLOOD UREA NITROGEN 15 mg/dL (7-20); CALCIUM 8.7 mg/dL (8.4-10.2); CARBON DIOXIDE 29 mmol/L (22-30); CHLORIDE 99 mmol/L (98-107); GLUCOSE 216 mg/dL (75-110); POTASSIUM 3.7 mmol/L (3.6-5.0); SODIUM 137.8 mmol/L (137-145); TOTAL PROTEIN 6.3 g/dL (6.3-8.2)
[2018-04-18] MEDS: HYDRALAZINE HCL 50 MG TABLET PO SCH ×3 (05:49→21:16)
[2018-04-18] MEDS: INSULIN LISPRO 100 UNIT/ML 3 ML VIAL SUBCUT PRN ×2 (06:16→17:20)
[2018-04-18] MEDS: AMLODIPINE BESYLATE 10 MG TABLET PO SCH (10:34)
[2018-04-18] MEDS: VALSARTAN 160 MG TABLET PO SCH (10:34)
[2018-04-18] MEDS: BUMETANIDE INJ/PF 1 MG/4 ML SDV IV SCH ×2 (10:35→21:17)
[2018-04-18] MEDS: CARVEDILOL 12.5 MG TABLET PO SCH ×2 (10:35→21:17)
[2018-04-18] MEDS: MULTIVITAMIN TABLET PO SCH (10:35)
[2018-04-18] MEDS: ENOXAPARIN SODIUM INJ 40 MG/0.4 ML DISP.SYRIN SUBCUT SCH (10:36)
[2018-04-18] MEDS: INSULIN GLARGINE,HUM.REC.ANLOG 300 UNIT/3 ML INSULN.PEN SUBCUT SCH (10:36)
[2018-04-18] MEDS: CLOBETASOL PROPIONATE 0.05% OINTMENT 15 GM TP SCH ×2 (10:39→17:26)
--- NOTE | 2018-04-18 20:48 | PDOC PROGRESS REPORT ---
Subjective Progress Note for:: 04/18/18 Subjective:: Patient was seen by the bedside, the blood pressure is better controlled, the biggest challenge for this patient is medication noncompliance, discharge planners will be consulted for assistance in this situation Reason For Visit: HYPERTENSIVE EMERGENCY, ACUTE SYSTOLIC HEART Physical Exam Vital Signs: Temp Pulse Resp BP Pulse Ox 98.4 F 68 30 H 133/90 H 94 04/18/18 16:00 04/18/18 19:56 04/18/18 18:00 04/18/18 16:18 04/18/18 16:00 Intake & Output 04/17/18 04/18/18 04/19/18 06:59 06:59 06:59 Intake Total 1200 350 Output Total 1350 1450 850 Balance -1350 -250 -500 Weight 114.6 kg General appearance: PRESENT: no acute distress Eye exam: PRESENT: PERRLA Respiratory exam: PRESENT: clear to auscultation bernardo Cardiovascular exam: PRESENT: +S1, +S2 GI/Abdominal exam: PRESENT: soft Neurological exam: PRESENT: alert Results Laboratory Results: 04/17/18 04:00 04/18/18 03:54 04/17/18 04/18/18 20:57 03:54 Sodium 137.4 137.8 Potassium 3.5 L 3.7 Chloride 98 99 Carbon Dioxide 31 H 29 Anion Gap 8 10 BUN 18 15 Creatinine 1.18 1.07 Est GFR ( Amer) > 60 > 60 Est GFR (Non-Af Amer) > 60 > 60 Glucose 181 H 216 H Calcium 8.6 8.7 Total Bilirubin 0.5 0.4 AST 10 L 8 L ALT 8 L 17 L Alkaline Phosphatase 82 81 Total Protein 6.6 6.3 Albumin 3.2 L 3.1 L 04/15/18 04/15/18 04/15/18 00:38 00:38 06:18 Creatine Kinase 76 69 CK-MB (CK-2) 1.13 Troponin I 0.032 04/15/18 04/15/18 04/15/18 06:18 12:30 12:30 Creatine Kinase 64 CK-MB (CK-2) 1.29 1.25 Troponin I 0.025 0.015 Impressions: Chest X-Ray 04/14/18 20:32 IMPRESSION: Cardiomegaly and pulmonary edema. NUMBER OF VIEWS: TECHNIQUE: LIMITATIONS: None. FINDINGS: IMPRESSION: 2010 [facility] [employer]- All Rights Reserved Assessment & Plan - Diagnosis (1) Acute combined systolic and diastolic heart failure Is this a current diagnosis for this admission?: Yes (2) Hypertensive emergency Is this a current diagnosis for this admission?: Yes (3) Pulmonary hypertension Is this a current diagnosis for this admission?: Yes (4) Diabetes mellitus Qualifiers: Diabetes mellitus type: type 2 Diabetes mellitus rodent exterminator insulin use: without rodent exterminator use Diabetes mellitus complication status: with unspecified complications Qualified Code(s): E11.8 - Type 2 diabetes mellitus with unspecified complications Is this a current diagnosis for this admission?: Yes
[2018-04-19] MEDS: HYDRALAZINE HCL 50 MG TABLET PO SCH ×3 (05:35→21:11)
[2018-04-19] MEDS: MULTIVITAMIN TABLET PO SCH (10:01)
[2018-04-19] MEDS: VALSARTAN 160 MG TABLET PO SCH (10:01)
[2018-04-19] MEDS: CARVEDILOL 12.5 MG TABLET PO SCH ×2 (10:02→21:11)
[2018-04-19] MEDS: BUMETANIDE INJ/PF 1 MG/4 ML SDV IV SCH ×2 (10:02→21:59)
[2018-04-19] MEDS: AMLODIPINE BESYLATE 10 MG TABLET PO SCH (10:02)
[2018-04-19] MEDS: ENOXAPARIN SODIUM INJ 40 MG/0.4 ML DISP.SYRIN SUBCUT SCH (10:02)
[2018-04-19] MEDS: INSULIN GLARGINE,HUM.REC.ANLOG 300 UNIT/3 ML INSULN.PEN SUBCUT SCH (10:03)
[2018-04-19] MEDS: CLOBETASOL PROPIONATE 0.05% OINTMENT 15 GM TP SCH ×2 (10:08→17:47)
--- NOTE | 2018-04-19 17:45 | PDOC PROGRESS REPORT ---
Subjective Progress Note for:: 04/19/18 Subjective:: Patient seen by the bedside, discharge planning need to make sure that the medical insurance will pay for his medication on discharge Reason For Visit: HYPERTENSIVE EMERGENCY, ACUTE SYSTOLIC HEART Physical Exam Vital Signs: Temp Pulse Resp BP Pulse Ox 98.8 F 72 14 142/99 H 96 04/19/18 16:00 04/19/18 12:00 04/19/18 14:00 04/19/18 12:00 04/19/18 12:00 Intake & Output 04/18/18 04/19/18 04/20/18 06:59 06:59 06:59 Intake Total 1200 550 900 Output Total 1450 1800 975 Balance -250 -1250 -75 Weight 113.6 kg Head exam: PRESENT: atraumatic, normocephalic Eye exam: PRESENT: PERRLA Ear exam: PRESENT: normal external ear exam Mouth exam: PRESENT: moist, tongue midline Neck exam: PRESENT: full ROM Respiratory exam: PRESENT: clear to auscultation bernardo Cardiovascular exam: PRESENT: +S1, +S2 Pulses: PRESENT: normal dorsalis pedis pul, +2 pedal pulses bilateral Vascular exam: PRESENT: normal capillary refill GI/Abdominal exam: PRESENT: soft Rectal exam: PRESENT: deferred Neurological exam: PRESENT: alert, awake, oriented to person, oriented to place , oriented to time, oriented to situation, CN II-XII grossly intact Psychiatric exam: PRESENT: appropriate affect, normal mood Skin exam: PRESENT: rash, vesicles Results Laboratory Results: 04/17/18 04:00 04/18/18 03:54 04/15/18 04/15/18 04/15/18 00:38 00:38 06:18 Creatine Kinase 76 69 CK-MB (CK-2) 1.13 Troponin I 0.032 04/15/18 04/15/18 04/15/18 06:18 12:30 12:30 Creatine Kinase 64 CK-MB (CK-2) 1.29 1.25 Troponin I 0.025 0.015 Impressions: Chest X-Ray 04/14/18 20:32 IMPRESSION: Cardiomegaly and pulmonary edema. NUMBER OF VIEWS: TECHNIQUE: LIMITATIONS: None. FINDINGS: IMPRESSION: 2010 [facility]- All Rights Reserved Assessment & Plan - Diagnosis (1) Acute combined systolic and diastolic heart failure Is this a current diagnosis for this admission?: Yes (2) Hypertensive emergency Is this a current diagnosis for this admission?: Yes (3) Pulmonary hypertension Is this a current diagnosis for this admission?: Yes (4) Diabetes mellitus Qualifiers: Diabetes mellitus type: type 2 Diabetes mellitus meterman insulin use: without chcf use Diabetes mellitus complication status: with unspecified complications Qualified Code(s): E11.8 - Type 2 diabetes mellitus with unspecified complications Is this a current diagnosis for this admission?: Yes
[2018-04-19] MEDS: INSULIN LISPRO 100 UNIT/ML 3 ML VIAL SUBCUT PRN ×2 (17:48→21:22)
[2018-04-19] MEDS ORDERED: BUMETANIDE INJ/PF 1 MG/4 ML SDV ONE (21:32)
[2018-04-19] MEDS: OXYCODONE-ACETAMINOPHEN 5-325 MG TABLET PO PRN (23:19)
[2018-04-20] MEDS: HYDRALAZINE HCL 50 MG TABLET PO SCH ×3 (05:29→23:15)
[2018-04-20] MEDS: MULTIVITAMIN TABLET PO SCH (09:11)
[2018-04-20] MEDS: VALSARTAN 160 MG TABLET PO SCH (09:11)
[2018-04-20] MEDS: INSULIN GLARGINE,HUM.REC.ANLOG 300 UNIT/3 ML INSULN.PEN SUBCUT SCH (09:12)
[2018-04-20] MEDS: BUMETANIDE INJ/PF 1 MG/4 ML SDV IV SCH ×2 (09:12→23:16)
[2018-04-20] MEDS: AMLODIPINE BESYLATE 10 MG TABLET PO SCH (09:12)
[2018-04-20] MEDS: CARVEDILOL 12.5 MG TABLET PO SCH ×2 (09:12→23:16)
[2018-04-20] MEDS: ENOXAPARIN SODIUM INJ 40 MG/0.4 ML DISP.SYRIN SUBCUT SCH (09:12)
[2018-04-20] MEDS: CLOBETASOL PROPIONATE 0.05% OINTMENT 15 GM TP SCH ×2 (13:21→17:14)
--- NOTE | 2018-04-20 15:28 | PDOC PROGRESS REPORT ---
Subjective Progress Note for:: 04/20/18 Subjective:: Patient seen by the bedside, discharge planning need to make sure that the medical insurance will pay for his medication on discharge Reason For Visit: HYPERTENSIVE EMERGENCY, ACUTE SYSTOLIC HEART Physical Exam Vital Signs: Temp Pulse Resp BP Pulse Ox 98.5 F 74 16 153/88 H 98 04/20/18 11:49 04/20/18 11:49 04/20/18 11:49 04/20/18 11:49 04/20/18 11:49 Intake & Output 04/19/18 04/20/18 04/21/18 06:59 06:59 06:59 Intake Total 550 1220 238 Output Total 1800 1425 675 Balance -1250 -205 -437 Weight 113.6 kg 113.5 kg General appearance: PRESENT: no acute distress Eye exam: PRESENT: PERRLA Respiratory exam: PRESENT: clear to auscultation bernardo Cardiovascular exam: PRESENT: +S1, +S2 GI/Abdominal exam: PRESENT: soft Neurological exam: PRESENT: alert Results Laboratory Results: 04/17/18 04:00 04/18/18 03:54 04/15/18 04/15/18 04/15/18 00:38 00:38 06:18 Creatine Kinase 76 69 CK-MB (CK-2) 1.13 Troponin I 0.032 04/15/18 04/15/18 04/15/18 06:18 12:30 12:30 Creatine Kinase 64 CK-MB (CK-2) 1.29 1.25 Troponin I 0.025 0.015 Impressions: Chest X-Ray 04/14/18 20:32 IMPRESSION: Cardiomegaly and pulmonary edema. NUMBER OF VIEWS: TECHNIQUE: LIMITATIONS: None. FINDINGS: IMPRESSION: 2010 [facility]- All Rights Reserved Assessment & Plan - Diagnosis (1) Acute combined systolic and diastolic heart failure Is this a current diagnosis for this admission?: Yes (2) Hypertensive emergency Is this a current diagnosis for this admission?: Yes (3) Pulmonary hypertension Is this a current diagnosis for this admission?: Yes (4) Diabetes mellitus Qualifiers: Diabetes mellitus type: type 2 Diabetes mellitus prison insulin use: without termite inspector use Diabetes mellitus complication status: with unspecified complications Qualified Code(s): E11.8 - Type 2 diabetes mellitus with unspecified complications Is this a current diagnosis for this admission?: Yes
[2018-04-20] MEDS: INSULIN LISPRO 100 UNIT/ML 3 ML VIAL SUBCUT PRN (17:15)
[2018-04-21] MEDS: HYDRALAZINE HCL 50 MG TABLET PO SCH (05:25)
[2018-04-21 09:48] VITALS: BP 152/101
--- NOTE | 2018-04-21 19:47 | PDOC DISCHARGE SUMMARY ---
General - Admit/Disc Date/PCP Admission Date/Primary Care Provider: 04/15/18 00:29 KARTHIK RICCI MD Discharge Date: 04/21/18 - Discharge Diagnosis (1) Acute combined systolic and diastolic heart failure Is this a current diagnosis for this admission?: Yes (2) Hypertensive emergency Is this a current diagnosis for this admission?: Yes (3) Pulmonary hypertension Is this a current diagnosis for this admission?: Yes (4) Diabetes mellitus Is this a current diagnosis for this admission?: Yes - Additional Information Resuscitation Status: Full Code Discharge Diet: Cardiac, Diabetic Discharge Activity: Activity As Tolerated, Weigh Daily Prescriptions: Amlodipine Besylate [Norvasc 10 mg Tablet] 10 mg PO DAILY #30 tablet Apremilast [Otezla] 30 mg PO BID #60 tablet Bumetanide [Bumex 2 mg Tablet] 1 tab PO DAILY #30 tab Carvedilol [Coreg 12.5 mg Tablet] 25 mg PO Q12 #60 tablet Isosorb Dinit/Hydralazine HCl [Bidil 20-37.5 mg Tablet] 1 tab PO Q8 #90 tablet Sitagliptin Phos/Metformin HCl [Janumet 50-1,000 Mg Tablet] 1 each PO BID #60 tablet Valsartan/Hydrochlorothiazide [Valsartan-Hctz 320-12.5 mg Tab] 1 each PO DAILY # 30 tablet Home Medications: Hydrocodone Bit/Acetaminophen [Hydrocodon-Acetaminophn 10-325] 1 each PO Q8HP PRN 04/15/18 Amlodipine Besylate [Norvasc 10 mg Tablet] 10 mg PO DAILY #30 tablet 04/19/18 Apremilast [Otezla] 30 mg PO BID #60 tablet 04/19/18 Bumetanide [Bumex 2 mg Tablet] 1 tab PO DAILY #30 tab 04/19/18 Carvedilol [Coreg 12.5 mg Tablet] 25 mg PO Q12 #60 tablet 04/19/18 Clobetasol Propionate [Temovate 0.05% Ointment 15 gm] 1 applic TP BID tube Isosorb Dinit/Hydralazine HCl [Bidil 20-37.5 mg Tablet] 1 tab PO Q8 #90 tablet 04/19/18 Sitagliptin Phos/Metformin HCl [Janumet 50-1,000 Mg Tablet] 1 each PO BID #60 tablet 04/19/18 Valsartan/Hydrochlorothiazide [Valsartan-Hctz 320-12.5 mg Tab] 1 each PO DAILY # 30 tablet 04/19/18 History of Present Illness History of Present Illness: SHARON JERONIMO is a 47 year old male, He has a history of hypertensive cardiomyopathy, coronary artery disease he came to the emergency room for evaluation of shortness of breath, in the emergency room was an acute CHF, the BNP was elevated, the chest x-ray showed pulmonary edema, the blood pressure was over 200 systolic. I was called by the ED physician to admit this patient to the hospital. Part of the challenge for this patient is compliant with medications,, the last time he was admitted he also had CHF he was prescribed entresto he said the medical insurance did not approve it. He was started on intravenous nitro and emergency room, could not get blood pressure control, was transferred to ICU to start nicardipine infusion. Patient blood pressure has improved on his regular home medications. 2D echo was done there is concentric left ventricular hypertrophy, EF was 35%, grade 2 diastolic heart failure Hospital Course Hospital Course: He was admitted for the management of acute combined systolic and diastolic heart failure, hypertensive emergency, he was treated with intravenous nitroglycerin infusion,2D echo was done, it demonstrated ejection fraction of left ventricle 35%, grade 2 diastolic dysfunction of left ventricle. He has diffuse plaquing psoriasis, part of the problem is medication adherence.The blood pressure was severely elevated at over 200 systolic Physical Exam Vital Signs: Temp Pulse Resp BP Pulse Ox 98.2 F 77 16 152/101 H 98 04/21/18 09:46 04/21/18 09:46 04/21/18 09:46 04/21/18 09:46 04/21/18 09:46 Intake & Output 04/20/18 04/21/18 04/22/18 06:59 06:59 06:59 Intake Total 1220 1866 Output Total 1425 1000 Balance -205 866 Weight 113.5 kg General appearance: PRESENT: no acute distress, well-developed, well-nourished Head exam: PRESENT: atraumatic, normocephalic Eye exam: PRESENT: conjunctiva pink, EOMI, PERRLA Ear exam: PRESENT: normal external ear exam Mouth exam: PRESENT: moist, tongue midline Neck exam: PRESENT: full ROM Respiratory exam: PRESENT: clear to auscultation bernardo Cardiovascular exam: PRESENT: RRR, +S1, +S2 GI/Abdominal exam: PRESENT: normal bowel sounds, soft Rectal exam: PRESENT: deferred Neurological exam: PRESENT: alert, CN II-XII grossly intact Psychiatric exam: PRESENT: appropriate affect, normal mood Skin exam: PRESENT: dry, intact, warm Results Laboratory Results: 04/17/18 04:00 04/18/18 03:54 04/15/18 04/15/18 04/15/18 00:38 00:38 06:18 Creatine Kinase 76 69 CK-MB (CK-2) 1.13 Troponin I 0.032 04/15/18 04/15/18 04/15/18 06:18 12:30 12:30 Creatine Kinase 64 CK-MB (CK-2) 1.29 1.25 Troponin I 0.025 0.015 Impressions: Chest X-Ray 04/14/18 20:32 IMPRESSION: Cardiomegaly and pulmonary edema. NUMBER OF VIEWS: TECHNIQUE: LIMITATIONS: None. FINDINGS: IMPRESSION: 2010 [facility]- All Rights Reserved Qualifiers - * PATIENT BEING DISCHARGED WITH ANY OF THE FOLLOWING DIAGNOSIS: No
== END 2018-04-21 10:00 | disposition home or self-care (01) | DRG 304 ==
LOC: ER 20:05 → MERGE 04-15 00:29 → OBSVTOIN 04-15 00:29 → EH 04-15 00:29 → ICU 04-15 09:59 → 5 04-19 20:46
PROVIDERS: ADMIT Internal Medicine; ATTEND Internal Medicine
DX: I16.1 Hypertensive emergency (principal); I50.41 Acute combined systolic (congestive) and diastolic (congestive) heart failure; I11.0 Hypertensive heart disease with heart failure; E11.9 Type 2 diabetes mellitus without complications; I27.20 Pulmonary hypertension, unspecified; I25.10 Atherosclerotic heart disease of native coronary artery without angina pectoris; L40.0 Psoriasis vulgaris; Z91.14 Patient's other noncompliance with medication regimen; Z79.899 Other long term (current) drug therapy; Z88.8 Allergy status to other drugs, medicaments and biological substances; Z88.6 Allergy status to analgesic agent; Z88.4 Allergy status to anesthetic agent; Z91.013 Allergy to seafood; Z82.49 Family history of ischemic heart disease and other diseases of the circulatory system
CPT/HCPCS: 36415; 71045; 80053; 80076; 81001; 82550; 82553; 82962; 83036; 83735; 83880; 84439; 84443; 84484; 85025; 85610; 85730; 93005; 93010; 93306; 96374; 96375; 99285; G8978-GP; G8979-GP; J1650; J1815; J3010; J3490

== ENCOUNTER 2018-04-30 22:08 | Emergency (ER) | payer MEDICARE, MEDICAID ==
[2018-04-30] MEDS ORDERED: BUMETANIDE INJ/PF 1 MG/4 ML SDV IV ONE (22:45)
[2018-04-30] MEDS ORDERED: NITROGLYCERIN/D5W 50 MG/250 ML RTUINJ IV PRN (22:48)
--- NOTE | 2018-04-30 22:48 | ER Document Report ---
ED General - General Chief Complaint: Chest Pain Stated Complaint: DIFFICULTY BREATHING Time Seen by Provider: 04/30/18 22:26 Mode of Arrival: Ambulatory Information source: Patient Notes: 47-year-old male presents emergency department with complaints of chest pain, shortness of breath, lower extremity swelling. Patient states that the swelling has been getting progressively worse over the last few days. Patient states that this evening he began having the shortness of breath and chest pain. Patient states that he has a history of congestive heart failure when was admitted to the hospital at the beginning of March. He states that he is currently on Bumex. He has been taking it as directed. Patient states that the water feels like it is just accumulating. He describes his chest pain is an aching sensation in the right chest. He denies any radiation of the pain. He denies any alleviating or exacerbating factors. Patient states that the shortness of breath is intermittent in nature. He states that it is worse with ambulation. Alleviated with sitting. He's having an assoicated productive cough. Denies fever, chills, rhinorrhea, sore throat. Patient follows up with Dr. Ricci. He has an appointment with him tomorrow morning. Patient states that he has a history of hypertension, diabetes, coronary artery disease , DVT, CVA. TRAVEL OUTSIDE OF THE [place] IN LAST 30 DAYS: No COUNTRY TRAVELED TO/FROM: [facility] Onset: This afternoon Onset/Duration: Gradual Quality of pain: Achy Severity: Mild Associated symptoms: Chest pain, Productive cough, Leg swelling Exacerbated by: Walking Relieved by: Sitting Similar symptoms previously: Yes Recently seen / treated by doctor: No - Related Data Allergies/Adverse Reactions: iodine [Iodine] Allergy (Severe, Verified 03/17/18 11:10) SWELLING Shellfish * [Shellfish] Allergy (Severe, Verified 03/17/18 11:10) Anaphylaxis morphine [Morphine] Allergy (Mild, Verified 03/17/18 11:10) cyclobenzaprine [From Flexeril] Allergy (Verified 03/21/18 22:42) diazepam [From Valium] Allergy (Verified 03/17/18 11:10) furosemide [From Lasix] Allergy (Verified 03/17/18 11:10) Past Medical History - General Information source: Patient - Social History Smoking Status: Former Smoker Frequency of alcohol use: None Drug Abuse: None Family History: Reviewed & Not Pertinent, Arthritis, CAD, CVA, DM, Hyperlipidemia, Hypertension, Malignancy, Other Patient has suicidal ideation: No Patient has homicidal ideation: No - Past Medical History Cardiac Medical History: Reports: Hx Congestive Heart Failure, Hx Coronary Artery Disease, Hx DVT - right leg., Hx Heart Attack, Hx Hypercholesterolemia, Hx Hypertension, Hx Heart Murmur Pulmonary Medical History: Reports: Hx Pneumonia Denies: Hx Asthma, Hx COPD, Hx Tuberculosis Neurological Medical History: Reports: Hx Cerebrovascular Accident - Lt sided weakness, Hx Migraine, Hx Seizures Endocrine Medical History: Reports: Hx Diabetes Mellitus Type 1, Hx Diabetes Mellitus Type 2. Denies: Hx Hyperthyroidism, Hx Hypothyroidism Renal/ Medical History: Reports: Hx Kidney Stones. Denies: Hx Peritoneal Dialysis GI Medical History: Reports: Hx Gastroesophageal Reflux Disease. Denies: Hx Cirrhosis, Hx Hepatitis Musculoskeletal Medical History: Reports Hx Arthritis, Reports Hx Muscle Weakness - Left Skin Medical History: Reports Hx Eczema, Denies Hx MRSA, Reports Hx Psoriasis Psychiatric Medical History: Denies: Hx Depression, Hx Schizoaffective Disorder Infectious Medical History: Denies: Hx Hepatitis, Hx MRSA Past Surgical History: Reports: Hx Cardiac Catheterization, Hx Cardiac Surgery - VSD having four previous surgeries as a child; heart valve defect, Hx Open Heart Surgery - VSD having five previous surgeries as a child; heart valve defect, Hx Vascular Surgery - Stents in right leg, Other - 4 separate operations for ventricular septal defect as a child.. Denies: Hx Pacemaker - Immunizations Immunizations up to date: Yes Hx Diphtheria, Pertussis, Tetanus Vaccination: Yes Hx Pneumococcal Vaccination: 03/24/13 Review of Systems - Review of Systems Constitutional: No symptoms reported EENT: No symptoms reported Cardiovascular: Chest pain Respiratory: Cough, Short of breath, Sputum Gastrointestinal: No symptoms reported Genitourinary: No symptoms reported Male Genitourinary: No symptoms reported Musculoskeletal: Leg swelling Skin: No symptoms reported Hematologic/Lymphatic: No symptoms reported Neurological/Psychological: No symptoms reported -: Yes All other systems reviewed and negative Physical Exam - Vital signs Vitals: Temp Pulse Resp BP Pulse Ox 98.3 F 89 22 H 199/130 H 99 04/30/18 22:09 04/30/18 22:09 04/30/18 22:09 04/30/18 22:09 04/30/18 22:09 - General Notes: PHYSICAL EXAMINATION: GENERAL: Well-appearing, well-nourished and in no acute distress. HEAD: Atraumatic, normocephalic. EYES: Pupils equal round and reactive to light, extraocular movements intact, sclera anicteric, conjunctiva are normal. ENT: Nares patent, oropharynx clear without exudates. Moist mucous membranes. NECK: Normal range of motion, supple without lymphadenopathy LUNGS: Breath sounds clear to auscultation bilaterally and equal. No wheezes rales or rhonchi. HEART: Regular rate and rhythm without murmurs ABDOMEN: Soft, nontender, nondistended abdomen. No guarding, no rebound. No masses appreciated. Musculoskeletal: Normal range of motion. 2+ lower extremity pitting edema. NEUROLOGICAL: Cranial nerves grossly intact. Normal speech, normal gait. Normal sensory, motor exams PSYCH: Normal mood, normal affect. SKIN: Warm, Dry, normal turgor, no rashes or lesions noted. Course - Re-evaluation Re-evalutation: 04/30/18 22:47 EKG: Ventricular rate 91, NE interval 188, castration 108, QTc 503, sinus rhythm. T wave inversion in leads V5, V6. Similar to previous EKG done on 03/17. 05/01/18 00:52 Patient reevaluated. He states that his chest pain has resolved. He is feeling much better after the Bumex, hydralazine, morphine. Troponin is at his baseline. BNP is chronically elevated. Lower than previous value. CXR does not show pulmonary edema, effusion, or pneumonia. I will repeat a troponin and EKG. 05/01/18 01:13 Repeat EKG: Ventricular rate 95, NE interval 204, castration 104, QTc 503, normal sinus rhythm. EKG similar to previous. T wave inversion in leads V5 and V6. 05/01/18 01:48 On re-evaluation, patient's blood pressure is currently 167/91. Patient is asymptomatic. Patient feels comfortable with discharge home. Patient states that he has a follow-up appointment with his primary care physician this morning. I instructed the patient to continue taking his medication as directed , to follow-up with his primary care physician as scheduled already, and to return to emergency department if he begins having any chest pain or difficulty breathing. Patient is agreeable to plan of care. 05/01/18 01:51 - Vital Signs Vital signs: Temp Pulse Resp BP Pulse Ox 98.3 F 89 26 H 181/128 H 96 04/30/18 22:09 04/30/18 22:09 05/01/18 00:01 05/01/18 00:01 05/01/18 00:01 - Laboratory Result Diagrams: 04/30/18 22:56 04/30/18 22:56 Laboratory results interpreted by me: 04/30/18 04/30/18 04/30/18 22:56 22:56 22:56 RBC 4.26 L Hgb 12.0 L Hct 35.5 L RDW 15.9 H Potassium 3.4 L Glucose 287 H ALT 14 L NT-Pro-B Natriuret Pep 3110 H Discharge - Discharge Clinical Impression: Chest pain Qualifiers: Chest pain type: unspecified Qualified Code(s): R07.9 - Chest pain, unspecified Congestive heart failure Qualifiers: Heart failure type: unspecified Heart failure chronicity: chronic Qualified Code(s): I50.9 - Heart failure, unspecified Condition: Good Disposition: HOME, SELF-CARE Instructions: Congestive Heart Failure ([facility]), Chest Pain of Unclear Cause ([facility]) Referrals: KARTHIK RICCI MD [ACTIVE STAFF] - Follow up as needed
[2018-04-30] MEDS ORDERED: HYDRALAZINE HCL INJ/PF 20 MG/1 ML SDV IV ONE (22:52)
--- NOTE | 2018-04-30 23:13 | RADIOLOGY REPORT (SQ) ---
EXAM DESCRIPTION: XR CHEST 1 VIEW COMPLETED DATE/TME: 04/30/2018 22:38 CLINICAL HISTORY: 47 years, Male, cough Compared to 03/05/2018. FINDINGS: The heart is moderately enlarged. Aorta is uncoiled. No consolidation or pleural effusion. No pulmonary edema or pneumothorax. IMPRESSION: No acute disease.
[2018-04-30 23:22] LABS: ABSOLUTE EOSINOPHILS # (AUTO) 0.1 10^3/uL (0.0-0.6); ABSOLUTE LYMPHOCYTES (AUTO) 1.3 10^3/uL (0.5-4.7); ABSOLUTE MONOCYTES (AUTO) 0.5 10^3/uL (0.1-1.4); ABSOLUTE NEUT (AUTO) 3.9 10^3/uL (1.7-8.2); BASOPHILS % (AUTO) 0.8 % (0-2); EOSINOPHILS % (AUTO) 1.5 % (0-6); HEMATOCRIT 35.5 % (37.9-51.0); LYMPHOCYTES % (AUTO) 22.8 % (13-45); MEAN CORPUSCULAR HEMOGLOBIN 28.1 pg (27.0-33.4); MEAN CORPUSCULAR HGB CONC 33.7 g/dL (32.0-36.0); MEAN CORPUSCULAR VOLUME 84 fl (80-97); MONOCYTES % (AUTO) 8.6 % (3-13); PLATELET COUNT 279 10^3/uL (150-450); RED BLOOD COUNT 4.26 10^6/uL (4.35-5.55); RED CELL DISTRIBUTION WIDTH 15.9 % (11.5-14.0); SEGMENTED NEUTROPHILS % (AUTO) 66.3 % (42-78); TOTAL CELLS COUNTED % (AUTO) 100 %; WHITE BLOOD COUNT 5.9 10^3/uL (4.0-10.5)
[2018-04-30] MEDS ORDERED: FENTANYL CITRATE INJ/PF 100 MCG/2 ML AMPUL IV ONE (23:25)
[2018-04-30 23:35] LABS: ALANINE AMINOTRANSFERASE 14 U/L (21-72); ALBUMIN 3.6 g/dL (3.5-5.0); ALKALINE PHOSPHATASE 92 U/L (38-126); ANION GAP 13 (5-19); ASPARTATE AMINO TRANSFERASE 19 U/L (17-59); BILIRUBIN,DIRECT 0.1 mg/dL (0.0-0.4); BILIRUBIN,TOTAL 0.5 mg/dL (0.2-1.3); BLOOD UREA NITROGEN 16 mg/dL (7-20); CALCIUM 8.8 mg/dL (8.4-10.2); CARBON DIOXIDE 29 mmol/L (22-30); CHLORIDE 98 mmol/L (98-107); GLUCOSE 287 mg/dL (75-110); POTASSIUM 3.4 mmol/L (3.6-5.0); SODIUM 139.5 mmol/L (137-145); TOTAL PROTEIN 7.3 g/dL (6.3-8.2)
[2018-04-30 23:46] LABS: TROPONIN I 0.021 ng/mL
[2018-05-01] MEDS ORDERED: HYDRALAZINE HCL INJ/PF 20 MG/1 ML SDV IV ONE (00:30)
[2018-05-01] MEDS ORDERED: CLONIDINE HCL 0.1 MG TABLET PO ONE (01:14)
[2018-05-01 02:21] VITALS: BP 192/98
--- NOTE | 2018-05-01 07:34 | EKG REPORT ---
SEVERITY:- ABNORMAL ECG - SINUS RHYTHM LEFT ATRIAL ABNORMALITY LEFT ANTERIOR FASCICULAR BLOCK ABNORMAL T, CONSIDER ISCHEMIA, ANT-LAT LEADS PROLONGED QT INTERVAL : Confirmed by: Yoseph Yu MD 01-May-2018 07:34:01
--- NOTE | 2018-05-01 07:36 | EKG REPORT ---
SEVERITY:- ABNORMAL ECG - SINUS RHYTHM PROBABLE LEFT ATRIAL ABNORMALITY BORDERLINE IVCD WITH LAD PROLONGED QT INTERVAL NONSPECIFIC ST-T CHANGES LATERAL LEADS, UNCHANGED FROM 03/17/18 EKG. : Confirmed by: Yoseph Yu MD 01-May-2018 07:35:40
== END 2018-05-01 02:30 | disposition home or self-care (01) ==
LOC: ER 22:08
DX: I11.0 Hypertensive heart disease with heart failure (principal); I50.9 Heart failure, unspecified; Z79.899 Other long term (current) drug therapy; R07.9 Chest pain, unspecified; R06.02 Shortness of breath; R05 Cough; I25.2 Old myocardial infarction; I25.10 Atherosclerotic heart disease of native coronary artery without angina pectoris; E11.9 Type 2 diabetes mellitus without complications; Z86.73 Personal history of transient ischemic attack (TIA), and cerebral infarction without residual deficits; Z86.718 Personal history of other venous thrombosis and embolism; Z87.891 Personal history of nicotine dependence; Z88.5 Allergy status to narcotic agent; Z88.8 Allergy status to other drugs, medicaments and biological substances; Z87.892 Personal history of anaphylaxis; Z91.013 Allergy to seafood; Z82.49 Family history of ischemic heart disease and other diseases of the circulatory system
CPT/HCPCS: 93005 ×2; 96376; 99285; 96374; 96375; 36415; 85025; 80053; 84484; 83880; 71045; 93010 ×2; J3490; A9270; J3010; J0360 ×2

== ENCOUNTER 2018-06-17 19:29 | Emergency (ER) | payer MEDICARE, MEDICAID ==
[2018-06-17 20:19] LABS: ABSOLUTE EOSINOPHILS # (AUTO) 0.1 10^3/uL (0.0-0.6); ABSOLUTE LYMPHOCYTES (AUTO) 1.3 10^3/uL (0.5-4.7); ABSOLUTE MONOCYTES (AUTO) 0.3 10^3/uL (0.1-1.4); BASOPHILS % (AUTO) 0.9 % (0-2); EOSINOPHILS % (AUTO) 1.7 % (0-6); HEMATOCRIT 38.3 % (37.9-51.0); HEMOGLOBIN 12.9 g/dL (13.5-17.0); LYMPHOCYTES % (AUTO) 26.9 % (13-45); MEAN CORPUSCULAR HEMOGLOBIN 27.6 pg (27.0-33.4); MEAN CORPUSCULAR HGB CONC 33.6 g/dL (32.0-36.0); MEAN CORPUSCULAR VOLUME 82 fl (80-97); MONOCYTES % (AUTO) 5.4 % (3-13); PLATELET COUNT 366 10^3/uL (150-450); RED BLOOD COUNT 4.65 10^6/uL (4.35-5.55); RED CELL DISTRIBUTION WIDTH 16.4 % (11.5-14.0); SEGMENTED NEUTROPHILS % (AUTO) 65.1 % (42-78); TOTAL CELLS COUNTED % (AUTO) 100 %; WHITE BLOOD COUNT 4.7 10^3/uL (4.0-10.5)
[2018-06-17 20:25] LABS: INTERNATIONAL RATION (INR) 1.06; PROTHROMBIN TIME 14.3 SEC (11.4-15.4)
[2018-06-17 20:26] LABS: PARTIAL THROMBOPLASTIN TIME 33.1 SEC (23.5-35.8)
[2018-06-17] MEDS ORDERED: BUMETANIDE INJ/PF 1 MG/4 ML SDV IV ONE (20:27)
[2018-06-17 20:37] LABS: ALANINE AMINOTRANSFERASE 24 U/L (21-72); ALBUMIN 3.4 g/dL (3.5-5.0); ALKALINE PHOSPHATASE 99 U/L (38-126); ANION GAP 6 (5-19); ASPARTATE AMINO TRANSFERASE 17 U/L (17-59); BILIRUBIN,DIRECT 0.2 mg/dL (0.0-0.4); BILIRUBIN,TOTAL 0.4 mg/dL (0.2-1.3); BLOOD UREA NITROGEN 14 mg/dL (7-20); CALCIUM 8.5 mg/dL (8.4-10.2); CARBON DIOXIDE 34 mmol/L (22-30); CHLORIDE 97 mmol/L (98-107); CREATINE KINASE 74 U/L (55-170); GLUCOSE 294 mg/dL (75-110); LIPASE 116.8 U/L (23-300); POTASSIUM 3.8 mmol/L (3.6-5.0); SODIUM 136.6 mmol/L (137-145); TOTAL PROTEIN 7.1 g/dL (6.3-8.2)
[2018-06-17 20:48] LABS: CREATINE KINASE MB 0.76 ng/mL (<4.55); TROPONIN I 0.032 ng/mL
--- NOTE | 2018-06-17 20:53 | RADIOLOGY REPORT (SQ) ---
EXAM DESCRIPTION: CHEST SINGLE VIEW COMPLETED DATE/TIME: 06/17/2018 8:32 pm REASON FOR STUDY: sob COMPARISON: 04/30/2018 EXAM PARAMETERS: NUMBER OF VIEWS: One view. TECHNIQUE: Single frontal radiographic view of the chest acquired. RADIATION DOSE: NA LIMITATIONS: None. FINDINGS: LUNGS AND PLEURA: No infiltrate, effusion, or mass. MEDIASTINUM AND HILAR STRUCTURES: No masses. Contour normal. HEART AND VASCULAR STRUCTURES: Cardiomegaly. No pulmonary edema. BONES: No acute findings. HARDWARE: Sternotomy wires. OTHER: No other significant finding. IMPRESSION: Cardiomegaly with no pulmonary edema. TECHNICAL DOCUMENTATION: JOB ID: [id number] [employer]- All Rights Reserved Reading location - IP/workstation name: [email or web address]
--- NOTE | 2018-06-17 23:17 | ER Document Report ---
ED General - General Chief Complaint: Shortness Of Breath Stated Complaint: COUGH,CONGESTION,LEG SWELLING Time Seen by Provider: 06/17/18 20:07 TRAVEL OUTSIDE OF THE [place] IN LAST 30 DAYS: No COUNTRY TRAVELED TO/FROM: [facility] Patient complains to provider of: Cough congestion shortness of breath Notes: Patient coming in for cough congestion concerned that he is fluid overloaded. Patient does have a history of CHF with a 35% ejection fraction upon his last visit. Patient denies any fevers or chills otherwise resting comfortably requiring oxygen states compliant with his medication. Patient is unaware if his dry weight also unaware if he is under any fluid restriction. Patient upon my evaluation is resting comfortably. Patient states no changes in the medications. - Related Data Allergies/Adverse Reactions: iodine [Iodine] Allergy (Severe, Verified 03/17/18 11:10) SWELLING Iodine and Iodide Containing Produc Allergy (Severe, Verified 04/14/18 22:32) Anaphylaxis Shellfish * [Shellfish] Allergy (Severe, Verified 03/17/18 11:10) Anaphylaxis morphine [Morphine] Allergy (Mild, Verified 03/17/18 11:10) cyclobenzaprine [From Flexeril] Allergy (Verified 03/21/18 22:42) diazepam [From Valium] Allergy (Verified 03/17/18 11:10) diphenhydramine Allergy (Verified 04/02/18 23:31) furosemide [From Lasix] Allergy (Verified 03/17/18 11:10) shellfish derived Allergy (Verified 04/02/18 23:31) Past Medical History - Social History Smoking Status: Never Smoker Frequency of alcohol use: None Family History: Arthritis, Malignancy, CAD, CVA, DM, Hyperlipidemia, Hypert ension, Reviewed & Not Pertinent, Other Patient has suicidal ideation: No Patient has homicidal ideation: No - Past Medical History Cardiac Medical History: Reports: Hx Congestive Heart Failure, Hx Coronary Mirela ry Disease, Hx DVT - right leg., Hx Heart Attack, Hx Hypercholesterolemia, Hx Hypertension, Hx Heart Murmur Pulmonary Medical History: Reports: Hx Pneumonia Denies: Hx Asthma, Hx COPD, Hx Tuberculosis Neurological Medical History: Reports: Hx Cerebrovascular Accident - Lt sided weakness, Hx Migraine, Hx Seizures Endocrine Medical History: Reports: Hx Diabetes Mellitus Type 1, Hx Diabetes Mellitus Type 2. Denies: Hx Hyperthyroidism, Hx Hypothyroidism Renal/ Medical History: Reports: Hx Kidney Stones. Denies: Hx Peritoneal Dialysis GI Medical History: Reports: Hx Gastroesophageal Reflux Disease. Denies: Hx Cirrhosis, Hx Hepatitis Musculoskeletal Medical History: Reports Hx Arthritis, Reports Hx Muscle Weakness - Left Skin Medical History: Reports Hx Eczema, Denies Hx MRSA, Reports Hx Psoriasis Psychiatric Medical History: Denies: Hx Depression, Hx Schizoaffective Disorder Infectious Medical History: Denies: Hx Hepatitis, Hx MRSA Past Surgical History: Reports: Hx Cardiac Catheterization, Hx Cardiac Surgery - VSD having four previous surgeries as a child; heart valve defect, Hx Open Heart Surgery - VSD having five previous surgeries as a child; heart valve defect, Hx Vascular Surgery - Stents in right leg, Other - 4 separate operations for ventricular septal defect as a child.. Denies: Hx Pacemaker - Immunizations Immunizations up to date: Yes Hx Diphtheria, Pertussis, Tetanus Vaccination: Yes Hx Pneumococcal Vaccination: 03/24/18 Review of Systems - Review of Systems Constitutional: No symptoms reported EENT: No symptoms reported Cardiovascular: No symptoms reported Respiratory: Short of breath Gastrointestinal: No symptoms reported Genitourinary: No symptoms reported Male Genitourinary: No symptoms reported Musculoskeletal: No symptoms reported Skin: No symptoms reported Hematologic/Lymphatic: No symptoms reported Neurological/Psychological: No symptoms reported -: Yes All other systems reviewed and negative Physical Exam - Vital signs Vitals: Temp Pulse Resp BP Pulse Ox 99.2 F 90 22 H 193/109 H 97 06/17/18 19:53 06/17/18 19:53 06/17/18 19:53 06/17/18 19:53 06/17/18 19:53 Interpretation: Normal - General General appearance: Appears well, Alert - HEENT Head: Normocephalic, Atraumatic Eyes: Normal Pupils: PERRL - Respiratory Respiratory status: No respiratory distress Chest status: Nontender Breath sounds: Normal Chest palpation: Normal - Cardiovascular Rhythm: Regular Heart sounds: Normal auscultation Murmur: No - Abdominal Inspection: Normal Distension: No distension Bowel sounds: Normal Tenderness: Nontender Organomegaly: No organomegaly - Back Back: Normal, Nontender - Extremities General upper extremity: Normal inspection, Nontender, Normal color, Normal ROM, Normal temperature General lower extremity: Normal inspection, Nontender, Normal color, Normal ROM, Normal temperature, Normal weight bearing. No: Eric's sign - Neurological Neuro grossly intact: Yes Cognition: Normal Orientation: AAOx4 Eric Coma Scale Eye Opening: Spontaneous Boaz Coma Scale Verbal: Oriented Boaz Coma Scale Motor: Obeys Commands Boaz Coma Scale Total: 15 Speech: Normal Motor strength normal: LUE, RUE, LLE, RLE Sensory: Normal - Psychological Associated symptoms: Normal affect, Normal mood - Skin Skin Temperature: Warm Skin Moisture: Dry Skin Color: Other - Diffuse plaque psoriasis Course - Re-evaluation Re-evalutation: 06/18/18 02:41 Laboratory studies not show critical findings BNP is on the lower BNP this had the chest x-rays not show any signs of overt fluid overload. Patient was given an extra dose of Bumex for his symptoms not requiring oxygen did discuss the case with patient's PCP Dr. Ricci recommend continue Bumex 2 mg twice daily follow-up in the next 24-48 hours. - Vital Signs Vital signs: Temp Pulse Resp BP Pulse Ox 98.9 F 90 20 167/102 H 100 06/17/18 23:26 06/17/18 19:53 06/17/18 23:26 06/17/18 23:26 06/17/18 23:26 - Laboratory Result Diagrams: 06/17/18 20:10 06/17/18 20:10 Laboratory results interpreted by me: 06/17/18 06/17/18 06/17/18 20:10 20:10 20:10 Hgb 12.9 L RDW 16.4 H Sodium 136.6 L Chloride 97 L Carbon Dioxide 34 H Creatinine 1.58 H Est GFR ( Amer) 57 L Est GFR (Non-Af Amer) 47 L Glucose 294 H NT-Pro-B Natriuret Pep 2590 H Albumin 3.4 L Discharge - Discharge Clinical Impression: Shortness of breath, Plaque psoriasis Hypertension Qualifiers: Hypertension type: essential hypertension Qualified Code(s): I10 - Essential (primary) hypertension Condition: Good Disposition: HOME, SELF-CARE Instructions: Bumex (Bumetanide) ([facility]), Dyspnea, Nonspecific ([facility]) Additional Instructions: Your evaluation today shows no signs of fluid overload lungs chest x-ray is clear your BNP laboratory results approximate 2501 of those results we had in the last few months. Your weight looks to be consistent with a dry weight when you are discharged from the hospital a few months ago. I discussed your case with Dr. Ricci recommends increasing her Bumex to 2 mg for the next 48 hours and following up with him in the office. Return to ER symptoms worsen. Prescriptions: Bumetanide [Bumex 2 mg Tablet] 1 tab PO BID #4 tab Clobetasol Propionate [Temovate 0.05% Ointment 15 gm] 1 applic TP BID #1 tube Referrals: KARTHIK RICCI MD [Primary Care Provider] - Follow up in 3-5 days
[2018-06-17 23:29] VITALS: BP 167/102
--- NOTE | 2018-06-17 23:59 | EKG REPORT ---
SEVERITY:- ABNORMAL ECG - SINUS RHYTHM PROBABLE LEFT ATRIAL ABNORMALITY LEFT ANTERIOR FASCICULAR BLOCK NONSPECIFIC T ABNORMALITIES, LATERAL LEADS BORDERLINE PROLONGED QT INTERVAL : Confirmed by: Jenifer Khan 17-Jun-2018 23:58:23
== END 2018-06-17 23:30 | disposition home or self-care (01) ==
LOC: ER 19:29
DX: R06.02 Shortness of breath (principal); L40.0 Psoriasis vulgaris; I11.0 Hypertensive heart disease with heart failure; R05 Cough; M79.89 Other specified soft tissue disorders; I50.9 Heart failure, unspecified; I25.10 Atherosclerotic heart disease of native coronary artery without angina pectoris; E78.00 Pure hypercholesterolemia, unspecified; I69.954 Hemiplegia and hemiparesis following unspecified cerebrovascular disease affecting left non-dominant side; I25.2 Old myocardial infarction; Z88.6 Allergy status to analgesic agent; Z86.718 Personal history of other venous thrombosis and embolism; Z87.442 Personal history of urinary calculi
CPT/HCPCS: 93005; 99284; 96374; 36415; 82553; 82550; 83690; 83735; 85025; 85610; 85730; 80053; 84484; 83880; 71045; 93010; J3490

== ENCOUNTER 2018-06-19 14:05 | Inpatient (IN) | payer MEDICARE, MEDICAID ==
[2018-06-19 15:51] LABS: HEMATOCRIT 35.6 % (37.9-51.0); MEAN CORPUSCULAR HEMOGLOBIN 27.2 pg (27.0-33.4); MEAN CORPUSCULAR HGB CONC 33.6 g/dL (32.0-36.0); MEAN CORPUSCULAR VOLUME 81 fl (80-97); PLATELET COUNT 337 10^3/uL (150-450); RED CELL DISTRIBUTION WIDTH 16.3 % (11.5-14.0); WHITE BLOOD COUNT 6.2 10^3/uL (4.0-10.5)
[2018-06-19 16:03] LABS: INTERNATIONAL RATION (INR) 1.08; PROTHROMBIN TIME 14.6 SEC (11.4-15.4)
[2018-06-19 16:04] LABS: PARTIAL THROMBOPLASTIN TIME 30.9 SEC (23.5-35.8)
[2018-06-19 16:05] LABS: ALANINE AMINOTRANSFERASE 16 U/L (21-72); ALBUMIN 3.3 g/dL (3.5-5.0); ALKALINE PHOSPHATASE 89 U/L (38-126); ANION GAP 9 (5-19); ASPARTATE AMINO TRANSFERASE 13 U/L (17-59); BILIRUBIN,DIRECT 0.2 mg/dL (0.0-0.4); BILIRUBIN,TOTAL 0.4 mg/dL (0.2-1.3); BLOOD UREA NITROGEN 14 mg/dL (7-20); CALCIUM 8.5 mg/dL (8.4-10.2); CARBON DIOXIDE 29 mmol/L (22-30); CHLORIDE 98 mmol/L (98-107); GLUCOSE 276 mg/dL (75-110); POTASSIUM 3.7 mmol/L (3.6-5.0); SODIUM 135.8 mmol/L (137-145); TOTAL PROTEIN 6.6 g/dL (6.3-8.2)
[2018-06-19 16:37] LABS: APPEARANCE,URINE CLEAR; BILIRUBIN,URINE NEGATIVE (NEGATIVE); COLOR,URINE STRAW; GLUCOSE, URINE >=500 mg/dL (NEGATIVE); KETONES,URINE NEGATIVE (NEGATIVE); LEUKOCYTE ESTERASE,URINE NEGATIVE (NEGATIVE); NITRITE,URINE NEGATIVE (NEGATIVE); PROTEIN,URINE 100 mg/dL (NEGATIVE); URINE SPECIFIC GRAVITY 1.005; UROBILINOGEN,URINE NEGATIVE mg/dL (<2.0)
--- NOTE | 2018-06-19 17:12 | RADIOLOGY REPORT (SQ) ---
EXAM DESCRIPTION: CT CHEST WITHOUT COMPLETED DATE/TIME: 06/19/2018 5:01 pm REASON FOR STUDY: hypoxia COMPARISON: 07/20/2017 TECHNIQUE: CT scan performed of the chest without intravenous contrast. Images reviewed with lung, soft tissue and bone windows. Reconstructed coronal and sagittal MPR images reviewed. All images st ored on PACS. All CT scanners at this facility use dose modulation, iterative reconstruction, and/or weight based d osing when appropriate to reduce radiation dose to as low as reasonably achievable (ALARA). [facility]: Dose Right [facility]: CareDose [facility]: Dose Right [facility]: Teradose 4D [facility]: [employer] RADIATION DOSE: mGy. LIMITATIONS: No technical limitations. FINDINGS: LUNGS AND PLEURA: Ground-glass infiltrates are present in the right lower lobe. HILAR AND MEDIASTINAL STRUCTURES: There are some small nonspecific mediastinal nodes. No true adenop athy. HEART AND VASCULAR STRUCTURES: No aneurysm. No pericardial effusion. UPPER ABDOMEN: No significant findings. Limited exam. THYROID AND OTHER SOFT TISSUES: No masses. No adenopathy. BONES: No significant finding. HARDWARE: Sternotomy wires. OTHER: No other significant findings. IMPRESSION: Ground-glass infiltrates in the right lower lobe likely suggesting an infectious process . TECHNICAL DOCUMENTATION: JOB ID: [id number] Quality ID # [id number]: Final reports with documentation of one or more dose reduction techniques (e.g., Au tomated exposure control, adjustment of the mA and/or kV according to patient size, use of iterative reconstruction technique) 2010 [employer]- All Rights Reserved Reading location - IP/workstation name: [email or web address]
[2018-06-19] MEDS ORDERED: (PENDING PHARMACY ID) (Apremilast [Otezla] 30 MG) PO SCH (18:00)
[2018-06-19] MEDS ORDERED: (PENDING PHARMACY ID) (Sitagliptin Phos/Metformin Hcl [Janumet 50-1,000 Mg Tablet] 1 EACH) PO SCH (18:00)
[2018-06-19] MEDS ORDERED: DEXTROSE 50%-WATER SYRINGE 12.5 GM/25 ML DOSE IV PRN (18:30)
[2018-06-19] MEDS ORDERED: GLUCAGON,HUMAN RECOMB 1 MG INJ IM PRN (18:30)
[2018-06-19] MEDS ORDERED: DEXTROSE 40% GEL 15 GM TUBE PO PRN (18:30)
[2018-06-19] MEDS ORDERED: DEXTROSE 40% GEL 15 GM TUBE X 2 PO PRN (18:30)
[2018-06-19] MEDS ORDERED: DEXTROSE 50%-WATER SYRINGE 25 GM/50 ML DOSE IV PRN (18:30)
[2018-06-19] MEDS: ISOSORB DINIT/HYDRALAZINE HCL 20-37.5 MG TABLET PO SCH (19:37)
[2018-06-19] MEDS: HYDROCODONE/ACETAMINOPHEN 10-325 MG TABLET PO PRN (19:38)
[2018-06-19] MEDS: CARVEDILOL 12.5 MG TABLET PO SCH (19:38)
[2018-06-19] MEDS ORDERED: CARVEDILOL 12.5 MG TABLET PO SCH (22:00)
[2018-06-19] MEDS ORDERED: ISOSORB DINIT/HYDRALAZINE HCL 20-37.5 MG TABLET PO SCH (22:00)
--- NOTE | 2018-06-19 22:09 | PDOC H&P ---
History of Present Illness Admission Date/PCP: 06/19/18 14:05 KARTHIK RICCI MD History of Present Illness: SHARON JERONIMO is a 47 year old male, He has multiple comorbid condition, a trial emergency room for evaluation of hemoptysis, uncontrolled blood pressure, CT chest was done showing right lower lobe pneumonia, He has severe plaquing psoriasis affecting the torso and extremities with severe scaling of the skin he was recently started on otezla Past Medical History Cardiac Medical History: Reports: Congestive Heart Failure, Coronary Artery Disease, DVT - right leg., Myocardial Infarction, Hyperlipidema, Hypertension, Heart Murmur Pulmonary Medical History: Reports: Pneumonia Neurological Medical History: Reports: Migraine, Seizures Endocrine Medical History: Reports: Diabetes Mellitus Type 2 GI Medical History: Reports: Gastroesophageal Reflux Disease Musculoskeltal Medical History: Reports: Arthritis Skin Medical History: Reports: Eczema, Psoriasis Past Surgical History Past Surgical History: Reports: Cardiac Catheterization, Vascular Surgery - Stents in right leg, Other - 4 separate operations for ventricular septal defect as a child. Social History Smoking Status: Never Smoker Frequency of Alcohol Use: None Hx Recreational Drug Use: No Drugs: None Hx Prescription Drug Abuse: No Family History Family History: Arthritis, Malignancy, CAD, CVA, DM, Hyperlipidemia, Hypertension, Reviewed & Not Pertinent, Other Parental Family History Reviewed: Yes Children Family History Reviewed: Yes Sibling(s) Family History Reviewed.: Yes Medication/Allergy Home Medications: Amlodipine Besylate [Norvasc 10 mg Tablet] 10 mg PO DAILY 06/19/18 Apremilast [Otezla] 30 mg PO BID 06/19/18 Aspirin [Adult Aspirin] 81 mg PO DAILY 06/19/18 Bumetanide [Bumex 2 mg Tablet] 1 tab PO DAILY 06/19/18 Carvedilol [Coreg 12.5 mg Tablet] 25 mg PO Q12 06/19/18 Hydrocodone/Acetaminophen [[place] 10-325 mg Tablet] 1 tab PO Q8HP PRN 06/19/18 Isosorb Dinit/Hydralazine HCl [Bidil 20-37.5 mg Tablet] 1 tab PO Q8 06/19/18 Sitagliptin Phos/Metformin HCl [Janumet 50-1,000 Mg Tablet] 1 each PO BID 06/19/18 Valsartan/Hydrochlorothiazide [Valsartan-Hctz 320-12.5 mg Tab] 1 each PO DAILY 06/19/18 Allergies/Adverse Reactions: Shellfish * [Shellfish] Allergy (Severe, Verified 03/17/18 11:10) Anaphylaxis morphine [Morphine] Allergy (Mild, Verified 03/17/18 11:10) cyclobenzaprine [From Flexeril] Allergy (Verified 03/21/18 22:42) diazepam [From Valium] Allergy (Verified 03/17/18 11:10) diphenhydramine Allergy (Verified 04/02/18 23:31) furosemide [From Lasix] Allergy (Verified 03/17/18 11:10) shellfish derived Allergy (Verified 04/02/18 23:31) Review of Systems Constitutional: PRESENT: chills, fever(s). ABSENT: headache(s), weight gain, weight loss Eyes: ABSENT: visual disturbances Ears: ABSENT: hearing changes Cardiovascular: ABSENT: chest pain, dyspnea on exertion, edema, orthropnea, pa lpitations Respiratory: PRESENT: hemoptysis. ABSENT: cough Gastrointestinal: ABSENT: abdominal pain, constipation, diarrhea, hematemesis, hematochezia, nausea, vomiting Genitourinary: ABSENT: dysuria, hematuria Musculoskeletal: ABSENT: joint swelling Integumentary: PRESENT: lesions, rash. ABSENT: wounds Neurological: ABSENT: abnormal gait, abnormal speech, confusion, dizziness, focal weakness, syncope Psychiatric: ABSENT: anxiety, depression, homidical ideation, suicidal ideation Endocrine: ABSENT: cold intolerance, heat intolerance, menstrual abnormalities, polydipsia, polyuria Hematologic/Lymphatic: ABSENT: easy bleeding, easy bruising, lymphadenopathy Physical Exam Vital Signs: Temp Pulse Resp BP Pulse Ox 98.7 F 96 16 183/127 H 99 06/19/18 18:35 06/19/18 18:35 06/19/18 18:35 06/19/18 18:35 06/19/18 18:35 Intake & Output 06/18/18 06/19/18 06/20/18 06:59 06:59 06:59 Weight 109.9 kg General appearance: PRESENT: no acute distress, well-developed, well-nourished Head exam: PRESENT: atraumatic, normocephalic Eye exam: PRESENT: conjunctiva pink, EOMI, PERRLA Ear exam: PRESENT: normal external ear exam Mouth exam: PRESENT: moist, tongue midline Neck exam: PRESENT: full ROM Respiratory exam: PRESENT: rhonchi Cardiovascular exam: PRESENT: RRR, +S1, +S2 Pulses: PRESENT: normal dorsalis pedis pul, +2 pedal pulses bilateral Vascular exam: PRESENT: normal capillary refill GI/Abdominal exam: PRESENT: normal bowel sounds, soft Rectal exam: PRESENT: deferred Neurological exam: PRESENT: alert, awake, oriented to person, oriented to place, oriented to time, oriented to situation, CN II-XII grossly intact Psychiatric exam: PRESENT: appropriate affect, normal mood Skin exam: PRESENT: mottled, other - There is diffuse plaquing psoriasis with severe scaliness affecting the torso and extremities Results Laboratory Results: 06/19/18 15:35 06/19/18 15:35 06/19/18 06/19/18 06/19/18 15:35 15:35 16:00 WBC 6.2 RBC 4.40 Hgb 12.0 L Hct 35.6 L MCV 81 MCH 27.2 MCHC 33.6 RDW 16.3 H Plt Count 337 Sodium 135.8 L Potassium 3.7 Chloride 98 Carbon Dioxide 29 Anion Gap 9 BUN 14 Creatinine 1.01 Est GFR ( Amer) > 60 Est GFR (Non-Af Amer) > 60 Glucose 276 H Calcium 8.5 Total Bilirubin 0.4 AST 13 L ALT 16 L Alkaline Phosphatase 89 Total Protein 6.6 Albumin 3.3 L Urine Color STRAW Urine Appearance CLEAR Urine pH 7.0 Ur Specific [place] 1.005 Urine Protein 100 H Urine Glucose (UA) >=500 H Urine Ketones NEGATIVE Urine Blood NEGATIVE Urine Nitrite NEGATIVE Ur Leukocyte Esterase NEGATIVE Urine WBC (Auto) 0 Urine RBC (Auto) 0 Impressions: Chest CT 06/19/18 00:00 IMPRESSION: Ground-glass infiltrates in the right lower lobe likely suggesting an infectious process. Assessment & Plan - Diagnosis (1) Right lower lobe pneumonia Qualifiers: Pneumonia type: due to unspecified organism Qualified Code(s): J18.1 - Lobar pneumonia, unspecified organism Is this a current diagnosis for this admission?: Yes Plan: Start antibiotic for community-acquired pneumonia (2) Hemoptysis Is this a current diagnosis for this admission?: Yes (3) Hypertensive urgency Is this a current diagnosis for this admission?: Yes (4) Diabetes mellitus Qualifiers: Diabetes mellitus type: type 2 Diabetes mellitus group home insulin use: without group home use Diabetes mellitus complication status: with unspecified complications Qualified Code(s): E11.8 - Type 2 diabetes mellitus with unspecified complications Is this a current diagnosis for this admission?: Yes (5) Plaque psoriasis Is this a current diagnosis for this admission?: Yes (6) S/P VSD closure Is this a current diagnosis for this admission?: Yes
[2018-06-19] MEDS ORDERED: NORMAL SALINE 1000 ML 250 ML IV ONE (22:15)
[2018-06-19] MEDS: CLOBETASOL PROPIONATE 0.05% OINTMENT 15 GM TP SCH (22:22)
[2018-06-19] MEDS: INSULIN LISPRO 100 UNIT/ML 3 ML VIAL SUBCUT PRN (22:22)
[2018-06-19] MEDS: LEVOFLOXACIN 750 MG/D5W RTU 750 MG/150 ML RTUPB IV SCH (22:22)
[2018-06-20] MEDS: ISOSORB DINIT/HYDRALAZINE HCL 20-37.5 MG TABLET PO SCH ×3 (05:12→22:10)
[2018-06-20] MEDS: HYDROCODONE/ACETAMINOPHEN 10-325 MG TABLET PO PRN ×2 (05:22→16:21)
[2018-06-20] MEDS ORDERED: (PENDING PHARMACY ID) (Valsartan/Hydrochlorothiazide [Valsartan-Hctz 320-12.5 Mg Tab] 1 EA PO SCH (10:00)
[2018-06-20] MEDS ORDERED: (PENDING PHARMACY ID) (Bumetanide [Bumex 2 Mg Tablet] 1 TAB) PO SCH (10:00)
[2018-06-20] MEDS: VALSARTAN 160 MG TABLET PO SCH (10:51)
[2018-06-20] MEDS: HYDROCHLOROTHIAZIDE 12.5 MG TABLET PO SCH (10:52)
[2018-06-20] MEDS: CARVEDILOL 12.5 MG TABLET PO SCH ×2 (10:53→22:10)
[2018-06-20] MEDS: ASPIRIN 81 MG TABLET, ENT COATED PO SCH (10:53)
[2018-06-20] MEDS: AMLODIPINE BESYLATE 10 MG TABLET PO SCH (10:54)
[2018-06-20] MEDS: BUMETANIDE 1 MG TABLET PO SCH (10:54)
[2018-06-20] MEDS: METFORMIN HCL 500 MG TABLET PO SCH ×2 (10:56→17:51)
[2018-06-20] MEDS: SITAGLIPTIN PHOSPHATE 50 MG TABLET PO SCH ×2 (10:57→17:51)
[2018-06-20] MEDS: INSULIN LISPRO 100 UNIT/ML 3 ML VIAL SUBCUT PRN ×2 (12:49→22:15)
[2018-06-20] MEDS: CLOBETASOL PROPIONATE 0.05% OINTMENT 15 GM TP SCH ×2 (12:51→17:50)
--- NOTE | 2018-06-20 21:03 | RADIOLOGY REPORT (SQ) ---
EXAM DESCRIPTION: CT ABD/PELVIS ORAL ONLY COMPLETED DATE/TIME: 06/20/2018 8:49 pm REASON FOR STUDY: abdominal distension COMPARISON: CT abdomen pelvis, 06/18/2017 TECHNIQUE: CT scan of the abdomen and pelvis performed without intravenous or oral contrast. Images reviewed with lung, soft tissue, and bone windows. Reconstructed coronal and sagittal MPR images revi ewed. All images stored on PACS. All CT scanners at this facility use dose modulation, iterative reconstruction, and/or weight based d osing when appropriate to reduce radiation dose to as low as reasonably achievable (ALARA). [facility]: Dose Right [facility]: CareDose [facility]: Dose Right [facility]: Teradose 4D [facility]: Smart VoloMetrix RADIATION DOSE: CT Rad equipment meets quality standard of care and radiation dose reduction techniq ues were employed. CTDIvol: 20.0 mGy. DLP: 1118 mGy-cm.mGy. LIMITATIONS: None. FINDINGS: LOWER CHEST: There is ground-glass opacity of the included right lung base and lingula, re sidua of multifocal infection seen on prior CT dated 06/18/2017. NON-CONTRASTED LIVER, SPLEEN, ADRENALS: Evaluation limited by lack of IV contrast. No identified sign ificant masses. PANCREAS: No masses. No peripancreatic inflammatory changes. GALLBLADDER: No identified stones by CT criteria. No inflammatory changes to suggest cholecystitis. RIGHT KIDNEY AND URETER: No suspicious masses. Assessment limited by lack of IV contrast. No signif icant calcifications. No hydronephrosis or hydroureter. LEFT KIDNEY AND URETER: No suspicious masses. Assessment limited by lack of IV contrast. No signifi cant calcifications. No hydronephrosis or hydroureter. AORTA AND RETROPERITONEUM: No aneurysm. No retroperitoneal masses or adenopathy. BOWEL AND PERITONEAL CAVITY: No obvious masses or inflammatory changes. No free fluid. APPENDIX: Normal. PELVIS, BLADDER, AND ABDOMINAL WALL:No abnormal masses. No free fluid. Bladder normal. BONES: No significant findings. OTHER: No other significant finding. IMPRESSION: No noncontrast CT findings to explain abdominal distention. No evidence of bowel obstru ction or other acute abnormality. COMMENT: Quality ID # [id number]: Final reports with documentation of one or more dose reduction techniques (e.g., Automated exposure control, adjustment of the mA and/or kV according to patient size, use of iterative reconstruction technique) TECHNICAL DOCUMENTATION: JOB ID: [id number] [employer]- All Rights Reserved Reading location - IP/workstation name: [email or web address]
--- NOTE | 2018-06-20 21:22 | PDOC PROGRESS REPORT ---
Subjective Progress Note for:: 06/20/18 Subjective:: Patient said he has not made urine all day today, he also complained of abdominal distention I did a CT scan of the abdomen and pelvis without contrast it was negative for any acute pathology Reason For Visit: HEMOPTYSIS, MULTIPLE CO-MORBIDITIES Physical Exam Vital Signs: Temp Pulse Resp BP Pulse Ox 98.4 F 80 20 140/94 H 98 06/20/18 18:00 06/20/18 18:00 06/20/18 18:00 06/20/18 18:00 06/20/18 18:00 Intake & Output 06/19/18 06/20/18 06/21/18 06:59 06:59 06:59 Intake Total 903 610 Output Total 880 720 Balance 23 -110 Weight 116.6 kg General appearance: PRESENT: no acute distress Eye exam: PRESENT: PERRLA Respiratory exam: PRESENT: clear to auscultation bernardo Cardiovascular exam: PRESENT: +S1, +S2 GI/Abdominal exam: PRESENT: soft Neurological exam: PRESENT: alert Results Laboratory Results: 06/19/18 15:35 06/19/18 15:35 Impressions: Chest CT 06/19/18 00:00 IMPRESSION: Ground-glass infiltrates in the right lower lobe likely suggesting an infectious process. Abdomen/Pelvis CT 06/20/18 00:00 IMPRESSION: No noncontrast CT findings to explain abdominal distention. No evidence of bowel obstruction or other acute abnormality. Assessment & Plan - Diagnosis (1) Right lower lobe pneumonia Qualifiers: Pneumonia type: due to unspecified organism Qualified Code(s): J18.1 - Lobar pneumonia, unspecified organism Is this a current diagnosis for this admission?: Yes (2) Hemoptysis Is this a current diagnosis for this admission?: Yes (3) Hypertensive urgency Is this a current diagnosis for this admission?: Yes (4) Diabetes mellitus Qualifiers: Diabetes mellitus type: type 2 Diabetes mellitus long chain beamer insulin use: without long chain beamer use Diabetes mellitus complication status: with unspecified complications Qualified Code(s): E11.8 - Type 2 diabetes mellitus with unspecified complications Is this a current diagnosis for this admission?: Yes (5) Plaque psoriasis Is this a current diagnosis for this admission?: Yes (6) S/P VSD closure Is this a current diagnosis for this admission?: Yes
[2018-06-20] MEDS ORDERED: RINGERS SOLUTION,LACTATED 1,000 ML IV ONE (21:23)
[2018-06-20] MEDS: LEVOFLOXACIN 750 MG/D5W RTU 750 MG/150 ML RTUPB IV SCH (22:09)
[2018-06-21] MEDS: ISOSORB DINIT/HYDRALAZINE HCL 20-37.5 MG TABLET PO SCH ×3 (05:39→22:32)
[2018-06-21] MEDS: BUMETANIDE 1 MG TABLET PO SCH (09:22)
[2018-06-21] MEDS: METFORMIN HCL 500 MG TABLET PO SCH ×2 (09:22→17:18)
[2018-06-21] MEDS: CARVEDILOL 12.5 MG TABLET PO SCH ×2 (09:22→22:32)
[2018-06-21] MEDS: ASPIRIN 81 MG TABLET, ENT COATED PO SCH (09:22)
[2018-06-21] MEDS: AMLODIPINE BESYLATE 10 MG TABLET PO SCH (09:23)
[2018-06-21] MEDS: HYDROCHLOROTHIAZIDE 12.5 MG TABLET PO SCH (09:23)
[2018-06-21] MEDS: SITAGLIPTIN PHOSPHATE 50 MG TABLET PO SCH ×2 (09:23→17:18)
[2018-06-21] MEDS: VALSARTAN 160 MG TABLET PO SCH (09:23)
[2018-06-21] MEDS: CLOBETASOL PROPIONATE 0.05% OINTMENT 15 GM TP SCH ×2 (09:24→18:29)
[2018-06-21] MEDS: INSULIN LISPRO 100 UNIT/ML 3 ML VIAL SUBCUT PRN ×3 (09:25→17:17)
[2018-06-21] MEDS ORDERED: HYDRALAZINE HCL 25 MG TABLET PO PRN (12:22)
--- NOTE | 2018-06-21 13:21 | PDOC PROGRESS REPORT ---
Subjective Progress Note for:: 06/21/18 Subjective:: Patient was admitted for the right lower lobe pneumonia and hemoptysis Patient is currently doing fair still having some on and off hemoptysis Patient's denied any chest pain denied any shortness of the breath Had a history of the VSD closure on the [facility] and history of the congestive heart failure with EF is 35 presents was a last echo was done in March 2018 Patient have a history of uncontrolled blood pressures was admitted in the ICU and according to the patient was given some IV medications to drop down the patient's blood pressure was too low Patient is currently not seen any cardiology here Reason For Visit: HEMOPTYSIS, MULTIPLE CO-MORBIDITIES Physical Exam Vital Signs: Temp Pulse Resp BP Pulse Ox 98.1 F 86 16 164/110 H 99 06/21/18 09:04 06/21/18 10:00 06/21/18 09:04 06/21/18 11:16 06/21/18 09:04 Intake & Output 06/20/18 06/21/18 06/22/18 06:59 06:59 06:59 Intake Total 903 1760 Output Total 880 1820 Balance 23 -60 Weight 116.6 kg 119.8 kg General appearance: PRESENT: no acute distress, well-developed, well-nourished Head exam: PRESENT: atraumatic, normocephalic Eye exam: PRESENT: conjunctiva pink, EOMI, PERRLA. ABSENT: scleral icterus Ear exam: PRESENT: normal external ear exam Mouth exam: PRESENT: moist, tongue midline Neck exam: PRESENT: full ROM. ABSENT: carotid bruit, JVD, lymphadenopathy, thyromegaly Respiratory exam: PRESENT: clear to auscultation bernardo Cardiovascular exam: PRESENT: RRR. ABSENT: diastolic murmur, rubs, systolic murmur Pulses: PRESENT: normal dorsalis pedis pul, +2 pedal pulses bilateral Vascular exam: PRESENT: normal capillary refill GI/Abdominal exam: PRESENT: normal bowel sounds, soft. ABSENT: distended, guarding, mass, organolmegaly, rebound, tenderness Rectal exam: PRESENT: deferred Extremities exam: PRESENT: pedal edema Neurological exam: PRESENT: alert, awake, oriented to person, oriented to place, oriented to time, oriented to situation, CN II-XII grossly intact. ABSENT: motor sensory deficit Psychiatric exam: PRESENT: appropriate affect, normal mood. ABSENT: homicidal ideation, suicidal ideation Skin exam: PRESENT: dry, intact, warm. ABSENT: cyanosis, rash Results Laboratory Results: 06/19/18 15:35 06/19/18 15:35 06/19/18 16:00 Clean Catch Midstream Urine Culture - Final NO GROWTH 2 DAYS Impressions: Chest CT 06/19/18 00:00 IMPRESSION: Ground-glass infiltrates in the right lower lobe likely suggesting an infectious process. Abdomen/Pelvis CT 06/20/18 00:00 IMPRESSION: No noncontrast CT findings to explain abdominal distention. No evidence of bowel obstruction or other acute abnormality. Assessment & Plan - Diagnosis (1) Right lower lobe pneumonia Qualifiers: Pneumonia type: due to unspecified organism Qualified Code(s): J18.1 - Lobar pneumonia, unspecified organism Is this a current diagnosis for this admission?: Yes Plan: Continues IV antibiotic will consult the pulmonary (2) Accelerated hypertension Is this a current diagnosis for this admission?: Yes Plan: Consult the cardiology and add the hydralazine Patient is chronically elevated blood pressures will be slowly bring it down (3) Acute on chronic combined systolic (congestive) and diastolic (congestive) heart failure Is this a current diagnosis for this admission?: Yes Plan: Continues to Bumex (4) Coronary artery disease Is this a current diagnosis for this admission?: Yes (5) Diabetes mellitus type 2 in obese Is this a current diagnosis for this admission?: Yes (6) S/P VSD closure Is this a current diagnosis for this admission?: Yes (7) Hemoptysis Is this a current diagnosis for this admission?: Yes Plan: Most likely from underlying pneumonia - Time Time Spent with patient: 15-24 minutes Medications reviewed and adjusted accordingly: Yes Anticipated discharge: Home Within: Other - Plan Summary Plan Summary: Consult the cardiology and pulmonary Adjust the blood pressure medications Continues to IV antibiotic
[2018-06-21] MEDS ORDERED: HYDRALAZINE HCL 25 MG TABLET PO SCH (15:00)
[2018-06-21] MEDS ORDERED: HYDRALAZINE HCL INJ/PF 20 MG/1 ML SDV IV ONE (19:15)
[2018-06-21] MEDS: HYDROCODONE/ACETAMINOPHEN 10-325 MG TABLET PO PRN (20:51)
[2018-06-21] MEDS: LEVOFLOXACIN 750 MG/D5W RTU 750 MG/150 ML RTUPB IV SCH (22:31)
[2018-06-21] MEDS: HYDRALAZINE HCL 50 MG TABLET PO SCH (22:31)
--- NOTE | 2018-06-21 23:57 | CONSULTATION REPORT E ---
Consultation Report NAME: SHARON JERONIMO : 1970 AGE: 47Y DATE: 06/21/2018 ROOM: 326 A TO: LUIS CUNNINGHAM M.D. FROM: KARTHIK RICCI M.D. Requesting Physician HISTORY OF PRESENT ILLNESS: The patient is a 47-year-old -[place] male who came in with increased shortness of breath, coughing blood for the last 6 days associated with purulent sputum production and increasing shortness of breath. He went to the emergency room 2-3 days ago and was discharged and sent home, came back yesterday. He went to his primary care physician and was admitted directly. Blood pressure has been noted to be high and poorly controlled. Claimed that he had fever 104 degrees Fahrenheit at home. Also complained about abdominal pain on and off with heartburn sensation. PAST MEDICAL HISTORY: 1. History of congestive heart failure. 2. Coronary artery disease. 3. DVT right leg. 4. Myocardial infarction. 5. Hyperlipidemia. 6. Hypertension. 7. Heart murmur. 8. History of pneumonia. 9. Migraine. 10. Seizures. 11. Diabetes type 2. 12. Gastroesophageal reflux disease. 13. History of arthritis. 15. Psoriasis. SURGICAL HISTORY: 1. History of cardiac cath. 2. Vascular surgery, stent in the right leg. 3. Surgery for ventricular septal defect during childhood. SOCIAL HISTORY: Never smoked. Denies alcohol abuse or illicit drug use. FAMILY HISTORY: Arthritis, malignancy, CD, stroke, diabetes, hyperlipidemia, hypertension. ALLERGIES: 1. SHELLFISH. 2. MORPHINE. 3. CYCLOBENZAPRINE. 4. DIAZEPAM OR VALIUM. 5. DIPHENHYDRAMINE. 6. LASIX. HOME MEDICATIONS: 1. Norvasc. 2. Otezla. 3. Aspirin. 4. Bumex. 5. Coreg. 6. [place]. 7. Isosorbide dinitrate. 8. Metformin. 9. Janumet. 10. Losartan/hydrochlorothiazide. REVIEW OF SYSTEMS: CONSTITUTIONAL: Had fever and chills for the last 6 days. EYES: No jaundice or pallor or visual disturbances. EARS, NOSE, AND THROAT: No nasal discharge, no nasal congestion. CARDIOVASCULAR: Denies any chest pain or bipedal edema. Has history of congestive heart failure and pulmonary edema. RESPIRATORY: Complained about hemoptysis and coughing yellow-green phlegm for the last 6 days. GASTROINTESTINAL: No nausea, vomiting, or diarrhea. GENITOURINARY: No dysuria or hematuria. EXTREMITIES: No joint swelling, no cellulitis. PHYSICAL EXAMINATION: GENERAL: The patient is awake, alert, oriented x3. VITAL SIGNS: Temperature of 98.1 with a T-max of 98.6, heart rate is 87, blood pressure is 164/110, respiratory 16. EYES: No jaundice or pallor. EARS, NOSE, AND THROAT: No ear drainage. No nasal discharge. CHEST AND LUNGS: No wheezing, no rhonchi, no coarse crackles. CARDIOVASCULAR: S1, S2 distinct. Normal rate and regular rhythm. ABDOMEN: Flabby, positive bowel sounds, soft, nondistended, nontender. EXTREMITIES: No joint swelling, no cellulitis. LABORATORY DATA: CBC done on 06/19; showed a white count of 6.2, hemoglobin is 12, hematocrit is 35.6, platelet count is 337. Chemistry done also on 06/19; showed sodium is 135, potassium is 3.7, chloride 98, CO2 is 29, BUN 14, creatinine is 1.01, glucose is 236 and calcium is 8.5, SGOT 13, SGPT 16, total protein 6.6, and albumin is 3.3. IMAGING STUDIES: Chest CT scan done on admission 06/19/2018 showed some ground glass opacity bilaterally and a little bit more dominant on the right lower lobe. ASSESSMENT: 1. Pulmonary edema, probably due to poorly controlled hypertension. 2. Pneumonia right side, cannot be completely excluded but the patient's white blood cell count is normal. 3. History of smoking. 4. Hemoptysis, probably related to bronchitis, but the patient coughed up blood drops, a half teaspoon to one teaspoon since admission. PLAN/RECOMMENDATION: 1. Continue antibiotics. 2. Optimize blood pressure control.. 3. We will consider flexible bronchoscopy Saturday, depending upon the patient's progress today and tomorrow. DICTATING PHYSICIAN: LUIS CUNNINGHAM MD,HARLEY,MPH [id number] PHY#: [id number] ID: [id number] JOB#: [id number] ACCT: [id number] cc:LUIS CUNNINGHAM M.D. > MTDD
[2018-06-22] MEDS: HYDROCODONE/ACETAMINOPHEN 10-325 MG TABLET PO PRN ×2 (04:51→16:58)
[2018-06-22] MEDS: ISOSORB DINIT/HYDRALAZINE HCL 20-37.5 MG TABLET PO SCH ×3 (05:31→21:39)
[2018-06-22] MEDS: HYDRALAZINE HCL 50 MG TABLET PO SCH (05:32)
[2018-06-22] MEDS: VALSARTAN 160 MG TABLET PO SCH ×2 (09:52→21:39)
[2018-06-22] MEDS: ASPIRIN 81 MG TABLET, ENT COATED PO SCH (09:53)
[2018-06-22] MEDS: CARVEDILOL 12.5 MG TABLET PO SCH ×2 (09:53→21:38)
[2018-06-22] MEDS: SITAGLIPTIN PHOSPHATE 50 MG TABLET PO SCH ×2 (09:53→19:41)
[2018-06-22] MEDS: HYDROCHLOROTHIAZIDE 12.5 MG TABLET PO SCH (09:53)
[2018-06-22] MEDS: AMLODIPINE BESYLATE 10 MG TABLET PO SCH (09:53)
[2018-06-22] MEDS: METFORMIN HCL 500 MG TABLET PO SCH ×2 (09:53→19:41)
[2018-06-22] MEDS: CLOBETASOL PROPIONATE 0.05% OINTMENT 15 GM TP SCH ×2 (09:54→19:41)
[2018-06-22] MEDS: BUMETANIDE 1 MG TABLET PO SCH (10:00)
[2018-06-22 10:59] LABS: ABSOLUTE BASOPHILS # (AUTO) 0.1 10^3/uL (0.0-0.2); ABSOLUTE MONOCYTES (AUTO) 0.2 10^3/uL (0.1-1.4); ABSOLUTE NEUT (AUTO) 4.7 10^3/uL (1.7-8.2); BASOPHILS % (AUTO) 1.1 % (0-2); EOSINOPHILS % (AUTO) 0.3 % (0-6); HEMATOCRIT 35.9 % (37.9-51.0); HEMOGLOBIN 11.9 g/dL (13.5-17.0); LYMPHOCYTES % (AUTO) 17.4 % (13-45); MEAN CORPUSCULAR HEMOGLOBIN 27.3 pg (27.0-33.4); MEAN CORPUSCULAR HGB CONC 33.2 g/dL (32.0-36.0); MEAN CORPUSCULAR VOLUME 82 fl (80-97); MONOCYTES % (AUTO) 3.9 % (3-13); PLATELET COUNT 316 10^3/uL (150-450); RED BLOOD COUNT 4.37 10^6/uL (4.35-5.55); RED CELL DISTRIBUTION WIDTH 16.3 % (11.5-14.0); SEGMENTED NEUTROPHILS % (AUTO) 77.3 % (42-78); TOTAL CELLS COUNTED % (AUTO) 100 %
--- NOTE | 2018-06-22 11:16 | PDOC PROGRESS REPORT ---
Subjective Progress Note for:: 06/22/18 Subjective:: Patient's was added on hydralazine 50 mg every 8 and blood pressure is coming down to 140-150 range Complain of a headache but no blurry visions no weakness no other symptoms I think is all come from the medications Discussed with the patient and the nursing staff to keep a goal of blood pressure to 140-160 range systolic Patient's other than seen by the pulmonary for the hemoptysis and the pneumonia currently all stable Patient is denied any chest pain denied any shortness of the breath Reason For Visit: HEMOPTYSIS, MULTIPLE CO-MORBIDITIES Physical Exam Vital Signs: Temp Pulse Resp BP Pulse Ox 97.5 F 73 20 140/98 H 99 06/22/18 08:23 06/22/18 08:23 06/22/18 08:23 06/22/18 08:23 06/22/18 08:23 Intake & Output 06/21/18 06/22/18 06/23/18 06:59 06:59 06:59 Intake Total 1760 1088 Output Total 1820 925 Balance -60 163 Weight 119.8 kg 119 kg General appearance: PRESENT: no acute distress, well-developed, well-nourished Head exam: PRESENT: atraumatic, normocephalic Eye exam: PRESENT: conjunctiva pink, EOMI, PERRLA. ABSENT: scleral icterus Ear exam: PRESENT: normal external ear exam Mouth exam: PRESENT: moist, tongue midline Neck exam: PRESENT: full ROM. ABSENT: carotid bruit, JVD, lymphadenopathy, thyromegaly Respiratory exam: PRESENT: clear to auscultation bernardo Cardiovascular exam: PRESENT: RRR. ABSENT: diastolic murmur, rubs, systolic murmur Pulses: PRESENT: normal dorsalis pedis pul, +2 pedal pulses bilateral Vascular exam: PRESENT: normal capillary refill GI/Abdominal exam: PRESENT: normal bowel sounds, soft. ABSENT: distended, guarding, mass, organolmegaly, rebound, tenderness Rectal exam: PRESENT: deferred Extremities exam: ABSENT: pedal edema Musculoskeletal exam: PRESENT: ambulatory Neurological exam: PRESENT: alert, awake, oriented to person, oriented to place, oriented to time, oriented to situation, CN II-XII grossly intact. ABSENT: motor sensory deficit Psychiatric exam: PRESENT: appropriate affect, normal mood. ABSENT: homicidal ideation, suicidal ideation Skin exam: PRESENT: dry, intact, warm. ABSENT: cyanosis, rash Results Laboratory Results: 06/22/18 10:36 06/22/18 10:36 WBC 6.0 RBC 4.37 Hgb 11.9 L Hct 35.9 L MCV 82 MCH 27.3 MCHC 33.2 RDW 16.3 H Plt Count 316 Seg Neutrophils % 77.3 Lymphocytes % 17.4 Monocytes % 3.9 Eosinophils % 0.3 Basophils % 1.1 Absolute Neutrophils 4.7 Absolute Lymphocytes 1.0 Absolute Monocytes 0.2 Absolute Eosinophils 0.0 Absolute Basophils 0.1 06/19/18 16:50 Sputum Gram Stain - Final 06/19/18 16:50 Sputum Sputum Culture - Final NORMAL MARANDA 06/19/18 16:00 Clean Catch Midstream Urine Culture - Final NO GROWTH 2 DAYS Impressions: Chest CT 06/19/18 00:00 IMPRESSION: Ground-glass infiltrates in the right lower lobe likely suggesting an infectious process. Abdomen/Pelvis CT 06/20/18 00:00 IMPRESSION: No noncontrast CT findings to explain abdominal distention. No evidence of bowel obstruction or other acute abnormality. Assessment & Plan - Diagnosis (1) Right lower lobe pneumonia Qualifiers: Pneumonia type: due to unspecified organism Qualified Code(s): J18.1 - Lobar pneumonia, unspecified organism Is this a current diagnosis for this admission?: Yes Plan: Continues to IV antibiotic (2) Accelerated hypertension Is this a current diagnosis for this admission?: Yes Plan: Systolic blood pressure is 140-150 range adjust the blood pressure medications patients have a little hydralazine is causing the little headache will currently hold it and get the CT of the head waiting for cardiology evaluations (3) Acute on chronic combined systolic (congestive) and diastolic (congestive) heart failure Is this a current diagnosis for this admission?: Yes Plan: Continues to Bumex (4) Coronary artery disease Is this a current diagnosis for this admission?: Yes (5) Diabetes mellitus type 2 in obese Is this a current diagnosis for this admission?: Yes (6) S/P VSD closure Is this a current diagnosis for this admission?: Yes (7) Hemoptysis Is this a current diagnosis for this admission?: Yes Plan: Clear all stable - Time Time Spent with patient: 15-24 minutes Medications reviewed and adjusted accordingly: Yes Anticipated discharge: Home - Plan Summary Plan Summary: We ordered a CT of the head adjust the blood pressure medications continues to monitor the patient
[2018-06-22 11:20] LABS: ANION GAP 9 (5-19); BLOOD UREA NITROGEN 23 mg/dL (7-20); CALCIUM 8.7 mg/dL (8.4-10.2); CARBON DIOXIDE 24 mmol/L (22-30); CHLORIDE 101 mmol/L (98-107); GLUCOSE 194 mg/dL (75-110); POTASSIUM 4.3 mmol/L (3.6-5.0); SODIUM 133.5 mmol/L (137-145)
--- NOTE | 2018-06-22 12:55 | RADIOLOGY REPORT (SQ) ---
EXAM DESCRIPTION: CT HEAD WITHOUT COMPLETED DATE/TIME: 06/22/2018 12:41 pm REASON FOR STUDY: headche COMPARISON: None. TECHNIQUE: Axial images acquired through the brain without intravenous contrast. Images reviewed wi th bone, brain and subdural windows. Additional sagittal and coronal reconstructions were generated. Images stored on PACS. All CT scanners at this facility use dose modulation, iterative reconstruction, and/or weight based d osing when appropriate to reduce radiation dose to as low as reasonably achievable (ALARA). [facility]: Dose Right [facility]: CareDose [facility]: Dose Right [facility]: Teradose 4D [facility]: Stealz RADIATION DOSE: CT Rad equipment meets quality standard of care and radiation dose reduction techniq ues were employed. CTDIvol: 53.2 mGy. DLP: 1097 mGy-cm. mGy. LIMITATIONS: None. FINDINGS: VENTRICLES: Normal size and contour. CEREBRUM: No masses. No hemorrhage. No midline shift. No evidence for acute infarction. Normal gra y/white matter differentiation. No areas of low density in the white matter. CEREBELLUM: No masses. No hemorrhage. No alteration of density. No evidence for acute infarction. EXTRAAXIAL SPACES: No fluid collections. No masses. ORBITS AND GLOBE: No intra- or extraconal masses. Normal contour of globe without masses. CALVARIUM: No fracture. PARANASAL SINUSES: No fluid or mucosal thickening. SOFT TISSUES: No mass or hematoma. OTHER: No other significant finding. IMPRESSION: NORMAL BRAIN CT WITHOUT CONTRAST. EVIDENCE OF ACUTE STROKE: NO. COMMENT: Quality ID # [id number]: Final reports with documentation of one or more dose reduction techniques (e.g., Automated exposure control, adjustment of the mA and/or kV according to patient size, use of iterative reconstruction technique) TECHNICAL DOCUMENTATION: JOB ID: [id number] [employer]- All Rights Reserved Reading location - IP/workstation name: [email or web address]
[2018-06-22] MEDS ORDERED: ISOSORB DINIT/HYDRALAZINE HCL 20-37.5 MG TABLET PO SCH (14:00)
--- NOTE | 2018-06-22 20:08 | PROGRESS NOTE E ---
Progress Note NAME: SHARON JERONIMO : 1970 AGE: 47Y DATE: 06/22/2018 ROOM: 326 SUBJECTIVE: The patient is a 47-year-old -[place] male who came in with increasing shortness of breath and pulmonary infiltrates bilaterally, and hemoptysis. The patient claims that he is feeling a lot better. Denies any hemoptysis over the last 24 hours. Coughing up some yellow-green phlegm. Denies any chest pain, shortness of breath, or vomiting. No associated diarrhea. On aspirin, Norvasc, Bumex, *------*, hydrochlorothiazide, insulin, isosorbide dinitrate, Levaquin 750, metformin, Januvia, Diovan. OBJECTIVE: GENERAL: The patient is awake, alert, oriented x3, afebrile, not in apparent respiratory distress. VITAL SIGNS: Temperature 98.5, T-max 98.5. Heart rate 85, blood pressure 174/100-113. Respiratory rate 32, saturation 100% on room air. HEENT: Eyes: No jaundice or pallor. ENT: No ear drainage and no nasal discharge. CHEST AND LUNGS: No wheezing, no rhonchi, no crackles. CARDIOVASCULAR: S1, S2 distinct. ABDOMEN: Flabby. Positive bowel sounds. Soft, nondistended, nontender. EXTREMITIES: No joint swelling or cellulitis. LABORATORY: CBC done today shows a white count of 6, hemoglobin 11.9, hematocrit 35.9, platelets 216. Chemistry done this morning showed sodium 133, potassium 4.3, chloride 101, CO2 of 24, BUN 24, creatinine 1.2. Glucose 194. Calcium 8.7. ASSESSMENT: 1. PULMONARY INFILTRATE. Diffuse bilaterally. Most likely due to pulmonary edema. Underlying interstitial disease cannot be completely excluded at this time. 2. HEMOPTYSIS. Resolved. Most likely due to bronchitis or pneumonia. PLAN: 1. Optimize blood pressure control and diabetes treatment plan. 2. Begun on oral antibiotics. 3. Recommend pulmonary followup in 3-4 weeks after hospital discharge. Will sign off tonight. If you have any questions, please feel free to call me. DICTATING PHYSICIAN: LUIS CUNNINGHAM MD,HARLEY,MPH [id number] PHY#: [id number] ID: [id number] JOB#: [id number] ACCT: [id number] cc: > MTDD
[2018-06-22] MEDS: LEVOFLOXACIN 750 MG/D5W RTU 750 MG/150 ML RTUPB IV SCH (21:40)
--- NOTE | 2018-06-22 22:08 | PDOC CONSULTATION ---
Consultation-Blank Consultation: CARDIOLOGY CONSULTATION by Dr. Loyda Fernandes on 06/22/2018. Patient seen at 11 AM on 06/22/2018. 60 minutes spent on this patient, with more than 50% of time spent in direct patient care. REASON FOR CONSULTATION: Uncontrolled hypertension, in a patient with coronary artery disease, and prior history of CVA. HISTORY PRESENT ILLNESS: Patient is a pleasant 47-year-old Afro-[place] male with history of hypertension which has been difficult to control, diabetes mellitus, coronary artery disease with past history of stent in an unknown vessel, and peripheral vascular disease, admitted with complaints of cough and shortness of breath. The patient was found to have a right lower lobe pneumonia. The patient's symptoms are much improved on current treatment including antibiotics. But the patient blood pressure has been very difficult to control as it as an occasions in the past. The patient denies any chest pain or discomfort. There is no PND orthopnea. He did have a headache. But he does have a history of migraines. There is no palpitations. There is no dizziness near syncope or syncope. There is no new CVA symptoms. There is no leg edema. The patient has severe plaquing psoriasis and recently has been started on otesla. He also has a history of migraines PAST MEDICAL HISTORY: PAST SURGICAL HISTORY: Cardiac catheterization. History of stent placement in unknown coronary artery. History of peripheral vascular disease status post stent in the right groin artery. History of 4 separate operations for ventricular septal defect in his earlier age. FAMILY HISTORY: Is positive for arthritis, malignancy, coronary artery disease, CVA, diabetes mellitus, hyperlipidemia, and hypertension. SOCIAL HISTORY the patient is a non-smoker. There is no history of EtOH abuse. ALLERGIES: He is allergic to shellfish which causes anaphylaxis, morphine, IVP dye, Flexeril, diazepam, diphenhydramine, and Lasix. DISPOSITION: The patient is a full code. He refuses to name his surrogate healthcare decision maker. REVIEW OF SYSTEMS: PHYSICAL EXAMINATION: The patient is mildly obese. He is well groomed. He is in mild distress due to headache. Selected Entries 06/22/18 06/22/18 11:11 12:00 Temperature 97.1 F Pulse Rate 73 Blood Pressure 144/95 H Blood Pressure 111 Mean O2 Sat by Pulse 97 Oximetry Oxygen Delivery Room Air Method ( includes room air) HEAD: Is atraumatic normocephalic PERRLA. EYES: Pupils are equal round regular reactive to light accommodation. There is no conjunctival pallor. There is no scleral icterus. EARS: External auditory canals are clear. Tympanic membranes are intact. NOSE: Nasal mucous membranes are not inflamed. There is no deviated nasal septum. MOUTH: Mucous membranes of mouth are moist. Tongue is moist. There is no ulcers in the mouth. There is no bleeding from the gums. THROAT: There is no redness of the oropharynx. There is no exudates in the throat. SKIN: There is some psoriatic plaques. There is no petechia or ecchymosis. NECK: Is supple. There is no JVD. Carotids are equal there is no bruit. There is no lymphadenopathy. There is no goiter. There is no accessory muscles of respiration use. Trachea central. LUNGS: There is a few dry crackles in the right lower lobe. There is no rales of CHF. There is no chest wall tenderness. HEART: S1-S2 is heard. S1 is of normal intensity. There is an S4 gallop present. There is no S3 gallop. There is systolic murmur left sternal border and the apex. There is no rub. ABDOMEN: Is soft. Nontender. Bowel sounds are well heard. There is no hepatosplenomegaly. There is no guarding rebound or rigidity. EXTREMITIES: Femorals are slightly diminished. There is no femoral bruits. Leg pulses are well felt.. There is no pedal edema. There is no DVT or cellulitis. There is no calf tenderness. There is n o cyanosis or clubbing. CHALK TESTER: The patient is conscious awake alert oriented x3. There is mild residual left sided weakness. PSYCHIATRIC: The patient judgment and insight are intact his affect is normal. 06/19/18 06/22/18 06/22/18 15:35 10:36 10:36 WBC 6.0 RBC 4.37 Hgb 11.9 L Hct 35.9 L MCV 82 MCH 27.3 MCHC 33.2 RDW 16.3 H Plt Count 316 PT 14.6 INR 1.08 APTT 30.9 Sodium 133.5 L Potassium 4.3 Chloride 101 Carbon Dioxide 24 Anion Gap 9 BUN 23 H Creatinine 1.20 Est GFR ( Amer) > 60 Glucose 194 H Calcium 8.7 Home Meds Table Amlodipine Besylate [Norvasc 10 mg Tablet] 10 mg PO DAILY 06/19/18 Apremilast [Otezla] 30 mg PO BID 06/19/18 Aspirin [Adult Aspirin] 81 mg PO DAILY 06/19/18 Bumetanide [Bumex 2 mg Tablet] 1 tab PO DAILY 06/19/18 Carvedilol [Coreg 12.5 mg Tablet] 25 mg PO Q12 06/19/18 Hydrocodone/Acetaminophen [[place] 10-325 mg Tablet] 1 tab PO Q8HP PRN 06/19/18 Isosorb Dinit/Hydralazine HCl [Bidil 20-37.5 mg Tablet] 1 tab PO Q8 06/19/18 Sitagliptin Phos/Metformin HCl [Janumet 50-1,000 mg Tablet] 1 each PO BID Valsartan/Hydrochlorothiazide [Valsartan-Hctz 320-12.5 mg Tab] 1 each PO DAILY 06/19/18 06/19/18 17:56 Hydrocodone/Acetaminophen [[place] 10-325 mg Tablet] 1 tab PO Q8HP PRN 06/19/18 18:00 Apremilast [Otezla] 30 mg PO .BID 06/19/18 18:30 Dextrose 50%-Water [Dextrose Inj 50% Syringe (25 gm/50 ml)] 12.5 gm IV PRN PRN Dextrose 50%-Water [Dextrose Inj 50% Syringe (25 gm/50 ml)] 25 gm IV PRN PRN Dextrose [Glutose 40% Gel 15 gm Tube] 15 gm PO PRN PRN Dextrose [Glutose 40% Gel 15 gm Tube] 30 gm PO PRN PRN Glucagon,Human Recombinant [Glucagen Inj 1 mg Vial] 1 mg IM PRN PRN Insulin Lispro [Humalog Insulin 100 Unit/1 ml 3 ml Vial] 0 - 12 unit SUBCUT ACHSP PRN 06/19/18 22:00 Clobetasol Propionate [Temovate 0.05% Ointment 15 gm] 1 applic TP BID Levofloxacin 750 mg/D5w RTU [Levaquin RTU 750 mg/D5w 150 ml Premix] 750 mg in 150 ml IV QHS 06/20/18 10:00 Aspirin [Ecotrin 81 mg EC Tablet] 81 mg PO DAILY Bumetanide [Bumex 1 mg Tablet] 2 mg PO DAILY Metformin HCl [Glucophage 500 mg Tablet] 1,000 mg PO BID Sitagliptin Phosphate [Januvia 50 mg Tablet] 50 mg PO BID 06/21/18 19:15 Hydralazine HCl [Apresoline Inj/Pf 20 mg/1 ml Sdv] 10 mg IV NOW ONE 06/22/18 14:00 Isosorb Dinit/Hydralazine HCl [Bidil 20-37.5 mg Tablet] 2 tab PO Q8 06/22/18 22:00 Carvedilol [Coreg 12.5 mg Tablet] 25 mg PO Q12 Valsartan [Diovan 160 mg Tablet] 160 mg PO Q12 06/23/18 10:00 Amlodipine Besylate [Norvasc 10 mg Tablet] 10 mg PO DAILY Hydrochlorothiazide [Hydrodiuril 12.5 mg Tablet] 12.5 mg PO DAILY NO EKG available. His CT scan of the chest shows right lower lobe pneumonia. His CT of the head is negative for any acute pathology. IMPRESSION/RECOMMENDATION: 1. Uncontrolled hypertension: Continue his valsartan, Coreg, amlodipine. We will increase the patient's vital to 2 tablets 3 times daily. In view of the patient's history of coronary artery disease and peripheral vascular disease, will get renal artery Dopplers to make sure patient does not renal artery stenosis. 2. Right lower lobe pneumonia: Continue antibiotics. 3. Coronary artery disease. History of old [place], and history of stent placement. His cath in December 2017 in [facility]: Showed nonobstructive coronary artery disease, with patent stents. At that time his echo LV ejection fraction was 55%. We will check an EKG in the morning. 4. Diabetes mellitus: Continue the patient's current antidiabetic medication. 5. History of old CVA, with residual left-sided weakness. 6. History of psoriasis. 7. History of migraines: Although the patient has mild headache now, would closely observe the patient for occurrence of migraine headaches. Medications reviewed. Medication adjusted. Plan of care/management plan discussed with attending physician on the case. Medical decision making is of high complexity. Will follow with you. 60 minutes spent on this patient with more than 50% of time spent in direct patient care. His records from [facility], and [facility] have been reviewed.
[2018-06-23] MEDS: HYDROCODONE/ACETAMINOPHEN 10-325 MG TABLET PO PRN ×3 (01:02→21:03)
[2018-06-23] MEDS: ISOSORB DINIT/HYDRALAZINE HCL 20-37.5 MG TABLET PO SCH ×3 (04:59→21:04)
--- NOTE | 2018-06-23 06:11 | RADIOLOGY REPORT (SQ) ---
EXAM DESCRIPTION: XR CHEST 1 VIEW COMPLETED DATE/TME: 06/23/2018 06:00 CLINICAL HISTORY: 47 years, Male, pneumonia COMPARISON: 06/17/2018 chest NUMBER OF VIEWS: 1 TECHNIQUE: Portable chest LIMITATIONS: None. FINDINGS: Cardiomegaly. Osteopenia. Lungs are clear. No pneumothorax. Median sternotomy wires IMPRESSION: Cardiomegaly. Lungs are clear copyright 2010 [employer]- All Rights Reserved
[2018-06-23 06:24] LABS: ABSOLUTE BASOPHILS # (AUTO) 0.1 10^3/uL (0.0-0.2); ABSOLUTE LYMPHOCYTES (AUTO) 1.2 10^3/uL (0.5-4.7); ABSOLUTE MONOCYTES (AUTO) 0.3 10^3/uL (0.1-1.4); ABSOLUTE NEUT (AUTO) 3.5 10^3/uL (1.7-8.2); BASOPHILS % (AUTO) 1.3 % (0-2); EOSINOPHILS % (AUTO) 0.6 % (0-6); HEMOGLOBIN 12.4 g/dL (13.5-17.0); LYMPHOCYTES % (AUTO) 22.6 % (13-45); MEAN CORPUSCULAR HEMOGLOBIN 27.1 pg (27.0-33.4); MEAN CORPUSCULAR HGB CONC 33.5 g/dL (32.0-36.0); MEAN CORPUSCULAR VOLUME 81 fl (80-97); MONOCYTES % (AUTO) 6.2 % (3-13); PLATELET COUNT 307 10^3/uL (150-450); RED BLOOD COUNT 4.57 10^6/uL (4.35-5.55); RED CELL DISTRIBUTION WIDTH 16.5 % (11.5-14.0); SEGMENTED NEUTROPHILS % (AUTO) 69.3 % (42-78); TOTAL CELLS COUNTED % (AUTO) 100 %; WHITE BLOOD COUNT 5.1 10^3/uL (4.0-10.5)
[2018-06-23 06:43] LABS: ANION GAP 6 (5-19); BLOOD UREA NITROGEN 23 mg/dL (7-20); CALCIUM 9.1 mg/dL (8.4-10.2); CARBON DIOXIDE 27 mmol/L (22-30); CHLORIDE 105 mmol/L (98-107); GLUCOSE 142 mg/dL (75-110); POTASSIUM 4.2 mmol/L (3.6-5.0); SODIUM 137.9 mmol/L (137-145)
--- NOTE | 2018-06-23 06:51 | EKG REPORT ---
SEVERITY:- ABNORMAL ECG - SINUS RHYTHM PROBABLE LEFT ATRIAL ABNORMALITY NONSPECIFIC INTRAVENTRICULAR CONDUCTION DELAY : Confirmed by: Jenifer Khan 23-Jun-2018 06:51:24
--- NOTE | 2018-06-23 09:54 | RADIOLOGY REPORT (SQ) ---
EXAM DESCRIPTION: U/S LTD DUPLEX ART/NELSON FLOW COMPLETED DATE/TIME: 06/23/2018 5:57 am REASON FOR STUDY: with doppler.Assess REnal Artery stenosis COMPARISON: None. TECHNIQUE: Realtime and static grayscale images acquired. Selected color Doppler, velocities and spe ctral images recorded. LIMITATIONS: None. FINDINGS: RIGHT KIDNEY: RENAL ARTERY VELOCITIES: 26.5 cm/sec. Segmental artery velocity 30.0 cm/sec. RENAL VEIN: Color doppler flow present, patent. VELOCITY RATIO: 0.57. Normal waveforms. KIDNEY: Normal size. No significant pathology. LEFT KIDNEY: RENAL ARTERY VELOCITIES: 29.0 cm/sec. Segmental artery velocity 35.1 cm/sec. RENAL VEIN: Color doppler flow present, patent. VELOCITY RATIO: 0.62. Normal waveforms. KIDNEY: Normal size. No significant pathology. 2.7 cm cortical cyst. BLADDER: Normal. OTHER: No other significant finding. IMPRESSION: NO DOPPLER EVIDENCE OF HEMODYNAMICALLY SIGNIFICANT RENAL ARTERY STENOSIS. COMMENT: NORMAL RENAL ARTERY/AORTA VELOCITY RATIO IS LESS THAN OR EQUAL TO 3.5. TECHNICAL DOCUMENTATION: JOB ID: [id number] [employer]- All Rights Reserved Reading location - IP/workstation name: [email or web address]
[2018-06-23] MEDS: METFORMIN HCL 500 MG TABLET PO SCH ×2 (10:25→17:23)
[2018-06-23] MEDS: HYDROCHLOROTHIAZIDE 12.5 MG TABLET PO SCH (10:25)
[2018-06-23] MEDS: CARVEDILOL 12.5 MG TABLET PO SCH ×2 (10:26→21:04)
[2018-06-23] MEDS: SITAGLIPTIN PHOSPHATE 50 MG TABLET PO SCH ×2 (10:26→17:22)
[2018-06-23] MEDS: VALSARTAN 160 MG TABLET PO SCH ×2 (10:27→21:04)
[2018-06-23] MEDS: CLOBETASOL PROPIONATE 0.05% OINTMENT 15 GM TP SCH ×2 (10:27→17:25)
[2018-06-23] MEDS: AMLODIPINE BESYLATE 10 MG TABLET PO SCH (10:27)
[2018-06-23] MEDS: ASPIRIN 81 MG TABLET, ENT COATED PO SCH (11:12)
[2018-06-23] MEDS: CLONIDINE HCL 0.1 MG TABLET PO SCH ×3 (11:17→21:04)
[2018-06-23] MEDS: BUMETANIDE 1 MG TABLET PO SCH (11:18)
--- NOTE | 2018-06-23 11:19 | PDOC PROGRESS REPORT ---
Subjective Progress Note for:: 06/23/18 Subjective:: Patient is currently doing much better Patient CT of the head Is denied any chest pain denied any shortness of the breath Reason For Visit: HEMOPTYSIS, MULTIPLE CO-MORBIDITIES Physical Exam Vital Signs: Temp Pulse Resp BP Pulse Ox 97.2 F 87 22 H 157/115 H 96 06/23/18 07:19 06/23/18 07:19 06/23/18 07:19 06/23/18 07:19 06/23/18 07:19 Intake & Output 06/22/18 06/23/18 06/24/18 06:59 06:59 06:59 Intake Total 1088 1000 Output Total 925 325 Balance 163 675 Weight 119 kg 119.5 kg General appearance: PRESENT: no acute distress, well-developed, well-nourished Head exam: PRESENT: atraumatic, normocephalic Eye exam: PRESENT: conjunctiva pink, EOMI, PERRLA. ABSENT: scleral icterus Ear exam: PRESENT: normal external ear exam Mouth exam: PRESENT: moist, tongue midline Neck exam: PRESENT: full ROM. ABSENT: carotid bruit, JVD, lymphadenopathy, thyromegaly Respiratory exam: PRESENT: clear to auscultation bernardo Cardiovascular exam: PRESENT: RRR. ABSENT: diastolic murmur, rubs, systolic murmur Pulses: PRESENT: normal dorsalis pedis pul, +2 pedal pulses bilateral Vascular exam: PRESENT: normal capillary refill GI/Abdominal exam: PRESENT: normal bowel sounds, soft. ABSENT: distended, guarding, mass, organolmegaly, rebound, tenderness Rectal exam: PRESENT: deferred Musculoskeletal exam: PRESENT: ambulatory Neurological exam: PRESENT: alert, awake, oriented to person, oriented to place, oriented to time, oriented to situation, CN II-XII grossly intact. ABSENT: motor sensory deficit Psychiatric exam: PRESENT: appropriate affect, normal mood. ABSENT: homicidal ideation, suicidal ideation Skin exam: PRESENT: dry, intact, warm. ABSENT: cyanosis, rash Results Laboratory Results: 06/23/18 06:12 06/23/18 06:12 06/22/18 06/23/18 06/23/18 10:36 06:12 06:12 WBC 5.1 RBC 4.57 Hgb 12.4 L Hct 37.0 L MCV 81 MCH 27.1 MCHC 33.5 RDW 16.5 H Plt Count 307 Seg Neutrophils % 69.3 Lymphocytes % 22.6 Monocytes % 6.2 Eosinophils % 0.6 Basophils % 1.3 Absolute Neutrophils 3.5 Absolute Lymphocytes 1.2 Absolute Monocytes 0.3 Absolute Eosinophils 0.0 Absolute Basophils 0.1 Sodium 133.5 L 137.9 Potassium 4.3 4.2 Chloride 101 105 Carbon Dioxide 24 27 Anion Gap 9 6 BUN 23 H 23 H Creatinine 1.20 1.17 Est GFR ( Amer) > 60 > 60 Est GFR (Non-Af Amer) > 60 > 60 Glucose 194 H 142 H Calcium 8.7 9.1 Impressions: Chest CT 06/19/18 00:00 IMPRESSION: Ground-glass infiltrates in the right lower lobe likely suggesting an infectious process. Abdomen/Pelvis CT 06/20/18 00:00 IMPRESSION: No noncontrast CT findings to explain abdominal distention. No evidence of bowel obstruction or other acute abnormality. Head CT 06/22/18 00:00 IMPRESSION: NORMAL BRAIN CT WITHOUT CONTRAST. EVIDENCE OF ACUTE STROKE: NO. Chest X-Ray 06/23/18 06:00 IMPRESSION: Cardiomegaly. Lungs are clear copyright 2011 [employer]- All Rights Reserved Vascular Ultrasound 06/23/18 06:00 IMPRESSION: NO DOPPLER EVIDENCE OF HEMODYNAMICALLY SIGNIFICANT RENAL ARTERY STENOSIS. Assessment & Plan - Diagnosis (1) Right lower lobe pneumonia Qualifiers: Pneumonia type: due to unspecified organism Qualified Code(s): J18.1 - Lobar pneumonia, unspecified organism Is this a current diagnosis for this admission?: Yes Plan: Continues to IV antibiotic (2) Accelerated hypertension Is this a current diagnosis for this admission?: Yes Plan: Systolic blood pressure is 140-150 range adjust the blood pressure medications patients have a little hydralazine is causing the little headache will currently hold it and get the CT of the head waiting for cardiology evaluations (3) Acute on chronic combined systolic (congestive) and diastolic (congestive) heart failure Is this a current diagnosis for this admission?: Yes Plan: Continues to Bumex (4) Coronary artery disease Is this a current diagnosis for this admission?: Yes (5) Diabetes mellitus type 2 in obese Is this a current diagnosis for this admission?: Yes (6) S/P VSD closure Is this a current diagnosis for this admission?: Yes (7) Hemoptysis Is this a current diagnosis for this admission?: Yes Plan: Clear all stable - Time Time Spent with patient: 15-24 minutes Medications reviewed and adjusted accordingly: Yes - Plan Summary Plan Summary: Continues current medication
[2018-06-23] MEDS ORDERED: BUMETANIDE INJ/PF 1 MG/4 ML SDV IV ONE (14:00)
[2018-06-23] MEDS: INSULIN LISPRO 100 UNIT/ML 3 ML VIAL SUBCUT PRN (17:23)
[2018-06-23] MEDS: LEVOFLOXACIN 750 MG/D5W RTU 750 MG/150 ML RTUPB IV SCH (21:03)
--- NOTE | 2018-06-23 22:10 | Progress Note ---
Provider Note Provider Note: CARDIOLOGY PROGRESS NOTE by Dr. Loyda Fernandes on 06/23/2018. SUBJECTIVE: The patient denies any chest pain discomfort. His headache has resolved. There is no PND orthopnea. There is no TIA CVA symptoms. The patient's blood pressure is still uncontrolled. His renal artery Dopplers does not show evidence of renal artery stenosis. The patient denies any shortness of breath. There is no leg edema. There is no palpitations. There is no ventricular arrhythmia seen on the monitor. PHYSICAL EXAMINATION: The patient is mildly obese. He is in no acute distress. He is well-groomed. Selected Entries 06/23/18 11:11 Temperature 97.2 F Temperature Axillary Source Pulse Rate 88 Respiratory 16 Rate Blood Pressure 187/128 H Blood Pressure 147 Mean BP Location Right Arm BP Position Sitting O2 Sat by Pulse 100 Oximetry Oxygen Delivery Room Air Method HEAD: Is atraumatic normocephalic PERRLA. EYES: Pupils are equal round regular reactive to light accommodation. There is no conjunctival pallor. There is no scleral icterus. EARS: External auditory canals are clear. Tympanic membranes are intact. NOSE: Nasal mucous membranes are not inflamed. There is no deviated nasal septum. MOUTH: Mucous membranes of mouth are moist. Tongue is moist. There is no ulcers in the mouth. There is no bleeding from the gums. THROAT: There is no redness of the oropharynx. There is no exudates in the throat. SKIN: There is some psoriatic plaques. There is no petechia or ecchymosis. NECK: Is supple. There is no JVD. Carotids are equal there is no bruit. There is no lymphadenopathy. There is no goiter. There is no accessory muscles of respiration use. Trachea central. LUNGS: There is a few dry crackles in the right lower lobe. There is no rales of CHF. There is no chest wall tenderness. HEART: S1-S2 is heard. S1 is of normal intensity. There is an S4 gallop present. There is no S3 gallop. There is systolic murmur left sternal border and the apex. There is no rub. ABDOMEN: Is soft. Nontender. Bowel sounds are well heard. There is no hepatosplenomegaly. There is no guarding rebound or rigidity. EXTREMITIES: Femorals are slightly diminished. There is no femoral bruits. Leg pulses are well felt.. There is no pedal edema. There is no DVT or cellulitis. There is no calf tenderness. There is no cyanosis or clubbing. 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 There is mild residual left sided weakness. PSYCHIATRIC: The patient judgment and insight are intact his affect is normal. 06/23/18 06/23/18 06:12 06:12 WBC 5.1 RBC 4.57 Hgb 12.4 L Hct 37.0 L MCV 81 MCH 27.1 MCHC 33.5 RDW 16.5 H Plt Count 307 Sodium 137.9 Potassium 4.2 Chloride 105 Carbon Dioxide 27 Anion Gap 6 BUN 23 H Creatinine 1.17 Est GFR ( Amer) > 60 Glucose 142 H Calcium 9.1 She is EKG shows sinus rhythm. Minor nonspecific diffuse ST-T changes. Probable left atrial abnormality. CHEST X-ray: Shows osteopenia. Lungs are clear. IMPRESSION/RECOMMENDATION: 1. Uncontrolled hypertension: Continue his valsartan, Coreg, amlodipine. The patient's BiDil has been increased to 2 tablets 3 times daily. There is no evidence of renal artery stenosis. Will add clonidine at 0.1 mg p.o. 3 times daily and increase as tolerated, and as needed to control the patient's blood pressure. 2. Right lower lobe pneumonia: Continue antibiotics. This is resolved. The chest x-ray is clear. 3. Coronary artery disease. History of old [place], and history of stent placement. His cath in December 2017 in [facility]: Showed nonobstructive coronary artery disease, with patent stents. At that time his echo LV ejection fraction was 55%. 4. Diabetes mellitus: Continue the patient's current antidiabetic medication. 5. History of old CVA, with residual left-sided weakness. 6. History of psoriasis. 7. History of migraines: At present the patient with no headache Medications reviewed. Medications added. Plan of care/management plan discussed with attending physician on the case. Medical decision making is of high complexity. Will follow with you.
[2018-06-24 05:05] LABS: ABSOLUTE BASOPHILS # (AUTO) 0.1 10^3/uL (0.0-0.2); ABSOLUTE LYMPHOCYTES (AUTO) 1.2 10^3/uL (0.5-4.7); ABSOLUTE MONOCYTES (AUTO) 0.3 10^3/uL (0.1-1.4); ABSOLUTE NEUT (AUTO) 3.6 10^3/uL (1.7-8.2); BASOPHILS % (AUTO) 1.6 % (0-2); EOSINOPHILS % (AUTO) 0.7 % (0-6); HEMOGLOBIN 11.7 g/dL (13.5-17.0); LYMPHOCYTES % (AUTO) 22.5 % (13-45); MEAN CORPUSCULAR HEMOGLOBIN 27.4 pg (27.0-33.4); MEAN CORPUSCULAR HGB CONC 33.5 g/dL (32.0-36.0); MEAN CORPUSCULAR VOLUME 82 fl (80-97); MONOCYTES % (AUTO) 5.8 % (3-13); PLATELET COUNT 288 10^3/uL (150-450); RED BLOOD COUNT 4.27 10^6/uL (4.35-5.55); RED CELL DISTRIBUTION WIDTH 16.5 % (11.5-14.0); SEGMENTED NEUTROPHILS % (AUTO) 69.4 % (42-78); TOTAL CELLS COUNTED % (AUTO) 100 %; WHITE BLOOD COUNT 5.2 10^3/uL (4.0-10.5)
[2018-06-24 05:28] LABS: ANION GAP 9 (5-19); BLOOD UREA NITROGEN 20 mg/dL (7-20); CARBON DIOXIDE 26 mmol/L (22-30); CHLORIDE 103 mmol/L (98-107); GLUCOSE 123 mg/dL (75-110); POTASSIUM 4.1 mmol/L (3.6-5.0); SODIUM 137.5 mmol/L (137-145)
[2018-06-24] MEDS: HYDROCODONE/ACETAMINOPHEN 10-325 MG TABLET PO PRN ×2 (05:42→16:05)
[2018-06-24] MEDS: CLONIDINE HCL 0.1 MG TABLET PO SCH ×4 (05:43→22:14)
[2018-06-24] MEDS: ISOSORB DINIT/HYDRALAZINE HCL 20-37.5 MG TABLET PO SCH ×3 (05:43→22:14)
[2018-06-24] MEDS: SITAGLIPTIN PHOSPHATE 50 MG TABLET PO SCH ×2 (10:42→17:58)
[2018-06-24] MEDS: ASPIRIN 81 MG TABLET, ENT COATED PO SCH (10:43)
[2018-06-24] MEDS: HYDROCHLOROTHIAZIDE 12.5 MG TABLET PO SCH (10:43)
[2018-06-24] MEDS: VALSARTAN 160 MG TABLET PO SCH ×2 (10:43→22:14)
[2018-06-24] MEDS: CARVEDILOL 12.5 MG TABLET PO SCH ×2 (10:43→22:15)
[2018-06-24] MEDS: METFORMIN HCL 500 MG TABLET PO SCH ×2 (10:43→17:58)
[2018-06-24] MEDS: AMLODIPINE BESYLATE 10 MG TABLET PO SCH (10:44)
[2018-06-24] MEDS: BUMETANIDE 1 MG TABLET PO SCH (10:44)
[2018-06-24] MEDS: CLOBETASOL PROPIONATE 0.05% OINTMENT 15 GM TP SCH ×2 (10:51→17:56)
--- NOTE | 2018-06-24 11:42 | PDOC PROGRESS REPORT ---
Subjective Progress Note for:: 06/24/18 Subjective:: Patient is currently doing much better Patient CT of the head Is denied any chest pain denied any shortness of the breath Reason For Visit: HEMOPTYSIS, MULTIPLE CO-MORBIDITIES Physical Exam Vital Signs: Temp Pulse Resp BP Pulse Ox 98.2 F 85 18 163/110 H 98 06/24/18 07:40 06/24/18 07:40 06/24/18 07:40 06/24/18 07:40 06/24/18 07:40 Intake & Output 06/23/18 06/24/18 06/25/18 06:59 06:59 06:59 Intake Total 1000 1717 Output Total 325 2075 Balance 675 -358 Weight 119.5 kg General appearance: PRESENT: no acute distress, well-developed, well-nourished Head exam: PRESENT: atraumatic, normocephalic Eye exam: PRESENT: conjunctiva pink, EOMI, PERRLA. ABSENT: scleral icterus Ear exam: PRESENT: normal external ear exam Mouth exam: PRESENT: moist, tongue midline Neck exam: PRESENT: full ROM. ABSENT: carotid bruit, JVD, lymphadenopathy, thyromegaly Cardiovascular exam: PRESENT: RRR. ABSENT: diastolic murmur, rubs, systolic murmur Pulses: PRESENT: normal dorsalis pedis pul, +2 pedal pulses bilateral Vascular exam: PRESENT: normal capillary refill GI/Abdominal exam: PRESENT: normal bowel sounds, soft. ABSENT: distended, guarding, mass, organolmegaly, rebound, tenderness Rectal exam: PRESENT: deferred Neurological exam: PRESENT: alert, awake, oriented to person, oriented to place, oriented to time, oriented to situation, CN II-XII grossly intact. ABSENT: motor sensory deficit Psychiatric exam: PRESENT: appropriate affect, normal mood. ABSENT: homicidal ideation, suicidal ideation Skin exam: PRESENT: dry, intact, warm. ABSENT: cyanosis, rash Results Laboratory Results: 06/24/18 04:38 06/24/18 04:38 06/24/18 06/24/18 04:38 04:38 WBC 5.2 RBC 4.27 L Hgb 11.7 L Hct 35.0 L MCV 82 MCH 27.4 MCHC 33.5 RDW 16.5 H Plt Count 288 Seg Neutrophils % 69.4 Lymphocytes % 22.5 Monocytes % 5.8 Eosinophils % 0.7 Basophils % 1.6 Absolute Neutrophils 3.6 Absolute Lymphocytes 1.2 Absolute Monocytes 0.3 Absolute Eosinophils 0.0 Absolute Basophils 0.1 Sodium 137.5 Potassium 4.1 Chloride 103 Carbon Dioxide 26 Anion Gap 9 BUN 20 Creatinine 1.22 Est GFR ( Amer) > 60 Est GFR (Non-Af Amer) > 60 Glucose 123 H Calcium 9.0 Impressions: Chest CT 06/19/18 00:00 IMPRESSION: Ground-glass infiltrates in the right lower lobe likely suggesting an infectious process. Abdomen/Pelvis CT 06/20/18 00:00 IMPRESSION: No noncontrast CT findings to explain abdominal distention. No evidence of bowel obstruction or other acute abnormality. Head CT 06/22/18 00:00 IMPRESSION: NORMAL BRAIN CT WITHOUT CONTRAST. EVIDENCE OF ACUTE STROKE: NO. Chest X-Ray 06/23/18 06:00 IMPRESSION: Cardiomegaly. Lungs are clear copyright 2011 [employer]- All Rights Reserved Vascular Ultrasound 06/23/18 06:00 IMPRESSION: NO DOPPLER EVIDENCE OF HEMODYNAMICALLY SIGNIFICANT RENAL ARTERY STENOSIS. Assessment & Plan - Diagnosis (1) Right lower lobe pneumonia Qualifiers: Pneumonia type: due to unspecified organism Qualified Code(s): J18.1 - Lobar pneumonia, unspecified organism Is this a current diagnosis for this admission?: Yes Plan: Continues to IV antibiotic (2) Accelerated hypertension Is this a current diagnosis for this admission?: Yes Plan: Systolic blood pressure is 140-150 range adjust the blood pressure medications patients have a little hydralazine is causing the little headache will currently hold it and get the CT of the head waiting for cardiology evaluations (3) Acute on chronic combined systolic (congestive) and diastolic (congestive) heart failure Is this a current diagnosis for this admission?: Yes Plan: Continues to Bumex (4) Coronary artery disease Is this a current diagnosis for this admission?: Yes (5) Diabetes mellitus type 2 in obese Is this a current diagnosis for this admission?: Yes (6) S/P VSD closure Is this a current diagnosis for this admission?: Yes (7) Hemoptysis Is this a current diagnosis for this admission?: Yes Plan: Clear all stable - Time Time Spent with patient: 15-24 minutes Medications reviewed and adjusted accordingly: Yes Anticipated discharge: Home Within: Other - Plan Summary Plan Summary: Continues to current medication
[2018-06-24] MEDS: INSULIN LISPRO 100 UNIT/ML 3 ML VIAL SUBCUT PRN ×2 (12:46→22:15)
--- NOTE | 2018-06-24 18:50 | Progress Note ---
Provider Note Provider Note: CARDIOLOGY PROGRESS NOTES by Dr. Loyda Fernandes on 06/24/2018. SUBJECTIVE: The patient denies any chest pain or discomfort. There is no shortness of breath. There is no PND or orthopnea. There is no TIA CVA symptoms. There is no headaches or migraines. There is no leg edema. There is no palpitations. There is no near syncope or syncope. Note that in spite of her current medications blood pressure still seems to be very high. PHYSICAL EXAMINATION: The patient is mildly obese. He is well-groomed. He is in no acute distress. Selected Entries 06/22/18 08:23 Temperature 97.5 F Temperature Oral Source Pulse Rate 73 Respiratory 20 Rate Blood Pressure 140/98 H [Right Upper Arm] Blood Pressure 112 Mean [Right Upper Arm] Blood Pressure Sitting Position [Right Upper Arm] O2 Sat by Pulse 99 Oximetry Oxygen Delivery Room Air Method ( includes room air) HEAD: Is atraumatic normocephalic PERRLA. EYES: Pupils are equal round regular reactive to light accommodation. There is no conjunctival pallor. There is no scleral icterus. EARS: External auditory canals are clear. Tympanic membranes are intact. NOSE: Nasal mucous membranes are not inflamed. There is no deviated nasal septum. MOUTH: Mucous membranes of mouth are moist. Tongue is moist. There is no ulcers in the mouth. There is no bleeding from the gums. THROAT: There is no redness of the oropharynx. There is no exudates in the throat. SKIN: There is some psoriatic plaques. There is no petechia or ecchymosis. NECK: Is supple. There is no JVD. Carotids are equal there is no bruit. There is no lymphadenopathy. There is no goiter. There is no accessory muscles of respiration use. Trachea central. LUNGS: There is a few dry crackles in the right lower lobe. There is no rales of CHF. There is no chest wall tenderness. HEART: S1-S2 is heard. S1 is of normal intensity. There is an S4 gallop present. There is no S3 gallop. There is systolic murmur left sternal border and the apex. There is no rub. ABDOMEN: Is soft. Nontender. Bowel sounds are well heard. There is no hepatosplenomegaly. There is no guarding rebound or rigidity. EXTREMITIES: Femorals are slightly diminished. There is no femoral bruits. Leg pulses are well felt.. There is no pedal edema. There is no DVT or cellulitis. There is no calf tenderness. There is no cyanosis or clubbing. MEDICATION SPECIALIST: The patient is conscious awake alert oriented x3. There is mild residual left sided weakness. PSYCHIATRIC: The patient judgment and insight are intact his affect is normal. 06/24/18 06/24/18 04:38 04:38 WBC 5.2 RBC 4.27 L Hgb 11.7 L Hct 35.0 L MCV 82 MCH 27.4 MCHC 33.5 RDW 16.5 H Plt Count 288 Sodium 137.5 Potassium 4.1 Chloride 103 Carbon Dioxide 26 Anion Gap 9 BUN 20 Creatinine 1.22 Est GFR ( Amer) > 60 Glucose 123 H Calcium 9.0 IMPRESSION/RECOMMENDATION: 1. Uncontrolled hypertension: Continue his valsartan, Coreg, amlodipine. The patient's BiDil has been increased to 2 tablets 3 times daily. There is no evidence of renal artery stenosis. Will increase clonidine at 0.2 mg p.o. 3 times daily and increase as tolerated, and as needed to control the patient's blood pressure. We will get serum aldosterone levels, and also start the patient on Aldactone. 2. Right lower lobe pneumonia: Continue antibiotics. This is resolved. The chest x-ray is clear. 3. Coronary artery disease. History of old [place], and history of stent placement. [facility] Showed nonobstructive coronary artery disease, with patent stents. At that time his echo LV ejection fraction was 55%. His more recent echo at [facility] done in March 2018 was reported as the LV EF being 35%. Hence 3 months from March 2018 we will repeat an echo to see if this is related the patient's LV ejection fraction. 4. Diabetes mellitus: Continue the patient's current antidiabetic medication. 5. History of old CVA, with residual left-sided weakness. 6. History of psoriasis. 7. History of migraines: At present the patient with no headache Medications reviewed. Medications increased and new medications added. Plan of care/management plan discussed with attending physician on the case. Medical decision making is of high complexity. Will follow with you
[2018-06-24] MEDS: LEVOFLOXACIN 750 MG/D5W RTU 750 MG/150 ML RTUPB IV SCH (22:15)
[2018-06-25] MEDS: ISOSORB DINIT/HYDRALAZINE HCL 20-37.5 MG TABLET PO SCH ×2 (06:08→15:51)
[2018-06-25] MEDS: CLONIDINE HCL 0.1 MG TABLET PO SCH ×2 (06:09→15:51)
[2018-06-25] MEDS: HYDROCODONE/ACETAMINOPHEN 10-325 MG TABLET PO PRN ×2 (06:17→11:10)
[2018-06-25 06:21] LABS: ANION GAP 5 (5-19); BLOOD UREA NITROGEN 18 mg/dL (7-20); CALCIUM 8.9 mg/dL (8.4-10.2); CARBON DIOXIDE 26 mmol/L (22-30); CHLORIDE 105 mmol/L (98-107); GLUCOSE 116 mg/dL (75-110); POTASSIUM 3.9 mmol/L (3.6-5.0); SODIUM 136.4 mmol/L (137-145)
[2018-06-25] MEDS ORDERED: SPIRONOLACTONE 25 MG TABLET PO SCH (10:00)
[2018-06-25] MEDS: METFORMIN HCL 500 MG TABLET PO SCH (11:06)
[2018-06-25] MEDS: SITAGLIPTIN PHOSPHATE 50 MG TABLET PO SCH (11:06)
[2018-06-25] MEDS: VALSARTAN 160 MG TABLET PO SCH (11:06)
[2018-06-25] MEDS: ASPIRIN 81 MG TABLET, ENT COATED PO SCH (11:07)
[2018-06-25] MEDS: AMLODIPINE BESYLATE 10 MG TABLET PO SCH (11:09)
[2018-06-25] MEDS: CARVEDILOL 12.5 MG TABLET PO SCH (11:09)
[2018-06-25] MEDS: HYDROCHLOROTHIAZIDE 12.5 MG TABLET PO SCH (11:09)
[2018-06-25] MEDS: BUMETANIDE 1 MG TABLET PO SCH (11:15)
[2018-06-25] MEDS: CLOBETASOL PROPIONATE 0.05% OINTMENT 15 GM TP SCH (11:16)
[2018-06-25 18:20] VITALS: BP 174/124
--- NOTE | 2018-06-25 20:09 | PDOC DISCHARGE SUMMARY ---
General - Admit/Disc Date/PCP Admission Date/Primary Care Provider: 06/19/18 14:05 KARTHIK RICCI MD Discharge Date: 06/25/18 - Discharge Diagnosis (1) Right lower lobe pneumonia Is this a current diagnosis for this admission?: Yes (2) Hemoptysis Is this a current diagnosis for this admission?: Yes (3) Hypertensive urgency Is this a current diagnosis for this admission?: Yes (4) Diabetes mellitus Is this a current diagnosis for this admission?: Yes (5) Plaque psoriasis Is this a current diagnosis for this admission?: Yes (6) S/P VSD closure Is this a current diagnosis for this admission?: Yes (7) Coronary artery disease Is this a current diagnosis for this admission?: Yes (8) History of CVA (cerebrovascular accident) without residual deficits Is this a current diagnosis for this admission?: Yes - Additional Information Discharge Diet: As Tolerated, Cardiac Discharge Activity: Activity As Tolerated, Balance Activity w/Rest Prescriptions: Clonidine HCl [Catapres 0.1 mg Tablet] 0.2 mg PO Q8 #90 tablet Home Medications: Amlodipine Besylate [Norvasc 10 mg Tablet] 10 mg PO DAILY 06/19/18 Apremilast [Otezla] 30 mg PO BID 06/19/18 Aspirin [Adult Aspirin] 81 mg PO DAILY 06/19/18 Bumetanide [Bumex 2 mg Tablet] 1 tab PO DAILY 06/19/18 Carvedilol [Coreg 12.5 mg Tablet] 25 mg PO Q12 06/19/18 Hydrocodone/Acetaminophen [[place] 10-325 mg Tablet] 1 tab PO Q8HP PRN 06/19/18 Isosorb Dinit/Hydralazine HCl [Bidil 20-37.5 mg Tablet] 1 tab PO Q8 06/19/18 Sitagliptin Phos/Metformin HCl [Janumet 50-1,000 mg Tablet] 1 each PO BID 06/19/18 Valsartan/Hydrochlorothiazide [Valsartan-Hctz 320-12.5 mg Tab] 1 each PO DAILY 06/19/18 Clonidine HCl [Catapres 0.1 mg Tablet] 0.2 mg PO Q8 #90 tablet 06/25/18 History of Present Illness History of Present Illness: SHARON JERONIMO is a 47 year old male, He has multiple comorbid condition, atrial emergency room for evaluation of hemoptysis, uncontrolled blood pressure, CT chest was done showing right lower lobe pneumonia, He has severe plaquing psoriasis affecting the torso and extremities with severe scaling of the skin he was recently started on otezla.There is no evidence of bleeding diathesis, he has had multiple coagulation tests normal PT//PTT Hospital Course Hospital Course: Patient was admitted for the management of right lower lobe pneumonia associated with hemoptysis. He was treated with IV antibiotic, he has difficult to control blood pressure, on multiple medication for the control of blood pressure. He was treated with IV antibiotic with improvement there is complete resolution of the hemoptysis. Patient felt much better he wants to go home today Physical Exam Vital Signs: Temp Pulse Resp BP Pulse Ox 98.0 F 75 16 174/124 H 100 06/25/18 18:16 06/25/18 18:16 06/25/18 18:16 06/25/18 18:16 06/25/18 18:16 Intake & Output 06/24/18 06/25/18 06/26/18 06:59 06:59 06:59 Intake Total 1717 1641 300 Output Total 2075 300 Balance -358 1341 300 Weight 117.4 kg General appearance: PRESENT: no acute distress, well-developed, well-nourished Head exam: PRESENT: atraumatic, normocephalic Eye exam: PRESENT: conjunctiva pink, EOMI, PERRLA Ear exam: PRESENT: normal external ear exam Mouth exam: PRESENT: moist, tongue midline Neck exam: PRESENT: full ROM Respiratory exam: PRESENT: clear to auscultation bernardo Cardiovascular exam: PRESENT: RRR, +S1, +S2 Vascular exam: PRESENT: normal capillary refill GI/Abdominal exam: PRESENT: normal bowel sounds, soft Rectal exam: PRESENT: deferred Neurological exam: PRESENT: alert, awake, oriented to person, oriented to place, oriented to time, oriented to situation, CN II-XII grossly intact Psychiatric exam: PRESENT: appropriate affect, normal mood Skin exam: PRESENT: dry, intact, warm Results Laboratory Results: 06/24/18 04:38 06/25/18 05:56 06/25/18 05:56 Sodium 136.4 L Potassium 3.9 Chloride 105 Carbon Dioxide 26 Anion Gap 5 BUN 18 Creatinine 1.09 Est GFR ( Amer) > 60 Est GFR (Non-Af Amer) > 60 Glucose 116 H Calcium 8.9 06/19/18 15:12 Blood Blood Culture - Final NO GROWTH IN 5 DAYS 06/19/18 15:35 Blood Blood Culture - Final NO GROWTH IN 5 DAYS Impressions: Chest CT 06/19/18 00:00 IMPRESSION: Ground-glass infiltrates in the right lower lobe likely suggesting an infectious process. Abdomen/Pelvis CT 06/20/18 00:00 IMPRESSION: No noncontrast CT findings to explain abdominal distention. No evidence of bowel obstruction or other acute abnormality. Head CT 06/22/18 00:00 IMPRESSION: NORMAL BRAIN CT WITHOUT CONTRAST. EVIDENCE OF ACUTE STROKE: NO. Chest X-Ray 06/23/18 06:00 IMPRESSION: Cardiomegaly. Lungs are clear copyright 2011 [employer]- All Rights Reserved Vascular Ultrasound 06/23/18 06:00 IMPRESSION: NO DOPPLER EVIDENCE OF HEMODYNAMICALLY SIGNIFICANT RENAL ARTERY STENOSIS. Qualifiers - * PATIENT BEING DISCHARGED WITH ANY OF THE FOLLOWING DIAGNOSIS: No
--- NOTE | 2018-06-25 21:47 | Progress Note ---
Provider Note Provider Note: CARDIOLOGY PROGRESS NOTES by Dr. Loyda Fernandes on 06/25/2018. SUBJECTIVE: The patient's blood pressure is much improved. He denies any chest pain or discomfort. There is no shortness of breath. There is no PND orthopnea. There is no palpitations. There is no leg edema. The patient has no cough or sputum production. There is no ventricular arrhythmia seen on the monitor. The patient remains in sinus rhythm. There is no TIA CVA symptoms the patient has no recurrence of headache. PHYSICAL EXAMINATION: The patient is mildly obese. He is well-groomed. He is in no acute distress. Selected Entries 06/25/18 12:26 Temperature 98.4 F Temperature Oral Source Pulse Rate 66 Respiratory 18 Rate Blood Pressure 138/96 H Blood Pressure 110 Mean BP Location Left Arm BP Position Sitting O2 Sat by Pulse 98 Oximetry Oxygen Delivery Room Air Method HEAD: Is atraumatic normocephalic PERRLA. EYES: Pupils are equal round regular reactive to light accommodation. There is no conjunctival pallor. There is no scleral icterus. EARS: External auditory canals are clear. Tympanic membranes are intact. NOSE: Nasal mucous membranes are not inflamed. There is no deviated nasal septum. MOUTH: Mucous membranes of mouth are moist. Tongue is moist. There is no ulcers in the mouth. There is no bleeding from the gums. THROAT: There is no redness of the oropharynx. There is no exudates in the throat. SKIN: There is some psoriatic plaques. There is no petechia or ecchymosis. NECK: Is supple. There is no JVD. Carotids are equal there is no bruit. There is no lymphadenopathy. There is no goiter. There is no accessory muscles of respiration use. Trachea central. LUNGS: There is a few dry crackles in the right lower lobe. There is no rales of CHF. There is no chest wall tenderness. HEART: S1-S2 is heard. S1 is of normal intensity. There is an S4 gallop present. There is no S3 gallop. There is systolic murmur left sternal border and the apex. There is no rub. ABDOMEN: Is soft. Nontender. Bowel sounds are well heard. There is no hepatosplenomegaly. There is no guarding rebound or rigidity. EXTREMITIES: Femorals are slightly diminished. There is no femoral bruits. Leg pulses are well felt.. There is no pedal edema. There is no DVT or cellulitis. There is no calf tenderness. There is no cyanosis or clubbing. SENIOR GAMEMASTER: The patient is conscious awake alert oriented x3. There is mild residual left sided weakness. PSYCHIATRIC: The patient judgment and insight are intact his affect is normal. 06/24/18 06/25/18 21:08 05:56 Sodium 136.4 L Potassium 3.9 Chloride 105 Carbon Dioxide 26 Anion Gap 5 BUN 18 Creatinine 1.09 Est GFR ( Amer) > 60 Glucose 116 H POC Glucose 201 H Calcium 8.9 IMPRESSION/RECOMMENDATION: 1. Uncontrolled hypertension: His blood pressure has much improved, after starting Aldactone. Will continue his Aldactone. Await serum aldosterone levels. Continue his valsartan, Coreg, amlodipine. The patient's BiDil has been increased to 2 tablets 3 times daily. There is no evidence of renal artery stenosis. 2. Right lower lobe pneumonia: Continue antibiotics. This is resolved. The chest x-ray is clear. 3. Coronary artery disease. History of old [place], and history of stent placement. His cath in December 2017 in [facility]: Showed nonobstructive coronary artery disease, with patent stents. At that time his echo LV ejection fraction was 55%. His more recent echo at [facility] done in March 2018 was reported as the LV EF being 35%. Hence 3 months from March 2018 we will repeat an echo to see if this is related the patient's LV ejection fraction. 4. Diabetes mellitus: Continue the patient's current antidiabetic medication. 5. History of old CVA, with residual left-sided weakness. 6. History of psoriasis. 7. History of migraines: At present the patient with no headache. Medications reviewed. Medications adjusted. Medical decision making is of moderate complexity. Note 40 minutes spent on this patient, with more than 50% time spent in direct patient care. The patient desires to follow-up with with me in the office, after he is discharged. Will get a repeat echocardiogram in 3 months from the last echo obtained in [facility], to see if the ejection fraction is 35% or less. If that is the case then the patient may be referred for AICD placement.
== END 2018-06-25 18:47 | disposition home or self-care (01) | DRG 193 ==
LOC: 4N 14:05 → 3S 06-21 15:51
PROVIDERS: ADMIT Internal Medicine; ATTEND Internal Medicine
DX: J18.1 Lobar pneumonia, unspecified organism (principal); I50.43 Acute on chronic combined systolic (congestive) and diastolic (congestive) heart failure; R04.2 Hemoptysis; I69.354 Hemiplegia and hemiparesis following cerebral infarction affecting left non-dominant side; I11.0 Hypertensive heart disease with heart failure; L40.0 Psoriasis vulgaris; I25.10 Atherosclerotic heart disease of native coronary artery without angina pectoris; E78.5 Hyperlipidemia, unspecified; K21.9 Gastro-esophageal reflux disease without esophagitis; M19.90 Unspecified osteoarthritis, unspecified site; I16.0 Hypertensive urgency; E11.9 Type 2 diabetes mellitus without complications; E66.9 Obesity, unspecified; Z86.718 Personal history of other venous thrombosis and embolism; I25.2 Old myocardial infarction; Z87.01 Personal history of pneumonia (recurrent); Z95.820 Peripheral vascular angioplasty status with implants and grafts; Z79.84 Long term (current) use of oral hypoglycemic drugs; Z79.82 Long term (current) use of aspirin; Z95.5 Presence of coronary angioplasty implant and graft; Z68.37 Body mass index [BMI] 37.0-37.9, adult; Z82.61 Family history of arthritis; Z82.3 Family history of stroke; Z83.3 Family history of diabetes mellitus; Z82.49 Family history of ischemic heart disease and other diseases of the circulatory system
CPT/HCPCS: 36415; 70450; 71045; 71250; 74176; 80048; 80053; 80076; 81001; 82088; 82550; 82553; 82962; 83036; 83690; 83735; 83880; 84484; 85025; 85027; 85610; 85730; 87040; 87070; 87086; 87205; 93005; 93010; 93976; J0360; J1815; J1956; J3490; J7030; J7120

== ENCOUNTER 2018-07-15 18:26 | Inpatient (IN) | payer MEDICARE, MEDICAID ==
[2018-07-15] MEDS ORDERED: BUMETANIDE INJ/PF 1 MG/4 ML SDV IV ONE (18:56)
--- NOTE | 2018-07-15 18:57 | ER Document Report ---
ED Medical Screen (RME) - General Chief Complaint: Chest Pain Stated Complaint: SHORT OF BREATH/LEG SWELLING Time Seen by Provider: 07/15/18 18:43 Primary Care Provider: KARTHIK RICCI MD [Primary Care Provider] - Follow up as needed Mode of Arrival: Wheelchair Information source: Patient Notes: This is a 47-year-old man with a history of congenital heart disease (VSDs with repair), cardiomyopathy (ejection fraction 30%), CHF, CVA with left hemiparesis who presents to the emergency room with shortness of breath, dyspnea on exertion, lower extremity bilateral edema extending from the legs all the way up to the abdomen, increased weight gain of 18 pounds in the last week. TRAVEL OUTSIDE OF THE [place] IN LAST 30 DAYS: No - Related Data Allergies/Adverse Reactions: Shellfish * [Shellfish] Allergy (Severe, Verified 07/15/18 18:28) Anaphylaxis morphine [Morphine] Allergy (Mild, Verified 07/15/18 18:28) cyclobenzaprine [From Flexeril] Allergy (Verified 07/15/18 18:28) diazepam [From Valium] Allergy (Verified 07/15/18 18:28) diphenhydramine Allergy (Verified 07/15/18 18:28) furosemide [From Lasix] Allergy (Verified 07/15/18 18:28) shellfish derived Allergy (Verified 07/15/18 18:28) Past Medical History - Social History Family history: CAD - Past Medical History Cardiac Medical History: Reports: Hx Congestive Heart Failure, Hx Coronary Artery Disease, Hx DVT - right leg., Hx Heart Attack, Hx Hypercholesterolemia, Hx Hypertension, Hx Heart Murmur Pulmonary Medical History: Reports: Hx Pneumonia Denies: Hx Asthma, Hx COPD, Hx Tuberculosis Neurological Medical History: Reports: Hx Cerebrovascular Accident - Lt sided weakness, Hx Migraine, Hx Seizures Endocrine Medical History: Reports: Hx Diabetes Mellitus Type 1, Hx Diabetes Mellitus Type 2. Denies: Hx Hyperthyroidism, Hx Hypothyroidism Renal/ Medical History: Reports: Hx Kidney Stones. Denies: Hx Peritoneal Dialysis GI Medical History: Reports: Hx Gastroesophageal Reflux Disease. Denies: Hx Cirrhosis, Hx Hepatitis Musculoskeltal Medical History: Reports Hx Arthritis, Reports Hx Muscle Weakness - Left Skin Medical History: Reports Hx Eczema, Denies Hx MRSA, Reports Hx Psoriasis Psychiatric Medical History: Denies: Hx Depression, Hx Schizoaffective Disorder Infectious Medical History: Denies: Hx Hepatitis, Hx MRSA Past Surgical History: Reports: Hx Cardiac Catheterization, Hx Cardiac Surgery - VSD having four previous surgeries as a child; heart valve defect, Hx Open Heart Surgery - VSD having five previous surgeries as a child; heart valve defect, Hx Vascular Surgery - Stents in right leg, Other - 4 separate operations for ventricular septal defect as a child.. Denies: Hx Pacemaker - Immunizations Immunizations up to date: Yes Hx Diphtheria, Pertussis, Tetanus Vaccination: Yes History of Influenza Vaccine for 03/2017 - 08/2017 Season: Yes Influenza Administration Date for 03/2017 - 08/2017 Season: 05/10/17 Physical Exam - Vital signs Vitals: Temp Pulse Resp BP Pulse Ox 98.1 F 71 20 182/115 H 100 07/15/18 18:31 07/15/18 18:31 07/15/18 18:31 07/15/18 18:31 07/15/18 18:31 Course - Vital Signs Vital signs: Temp Pulse Resp BP Pulse Ox 98.1 F 71 20 182/115 H 100 07/15/18 18:31 07/15/18 18:31 07/15/18 18:31 07/15/18 18:31 07/15/18 18:31 Doctor's Discharge - Discharge Referrals: KARTHIK RICCI MD [Primary Care Provider] - Follow up as needed
--- NOTE | 2018-07-15 19:15 | RADIOLOGY REPORT (SQ) ---
EXAM DESCRIPTION: CHEST SINGLE VIEW COMPLETED DATE/TIME: 07/15/2018 7:03 pm REASON FOR STUDY: sob COMPARISON: 06/23/2018 NUMBER OF VIEWS: One view. TECHNIQUE: Single frontal radiographic view of the chest acquired. LIMITATIONS: None. FINDINGS: LUNGS AND PLEURA: Minimal right upper lobe opacity. Left lung clear. MEDIASTINUM AND HILAR STRUCTURES: No masses or contour abnormality. HEART AND VASCULATURE: Cardiac enlargement. Vascular congestion. BONES: No acute findings. HARDWARE: None in the chest. OTHER: No other significant finding. IMPRESSION: Congestive failure. Possible asymmetric right upper lobe pulmonary edema. TECHNICAL DOCUMENTATION: JOB ID: [id number] [employer]- All Rights Reserved Reading location - IP/workstation name: [email or web address]
[2018-07-15 19:20] LABS: ABSOLUTE BASOPHILS # (AUTO) 0.1 10^3/uL (0.0-0.2); ABSOLUTE EOSINOPHILS # (AUTO) 0.1 10^3/uL (0.0-0.6); ABSOLUTE MONOCYTES (AUTO) 0.4 10^3/uL (0.1-1.4); TOTAL CELLS COUNTED % (AUTO) 100 %
[2018-07-15 19:25] LABS: ABSOLUTE LYMPHOCYTES (AUTO) 1.3 10^3/uL (0.5-4.7); ABSOLUTE NEUT (AUTO) 4.2 10^3/uL (1.7-8.2); HEMATOCRIT 36.6 % (37.9-51.0); LYMPHOCYTES % (AUTO) 20.9 % (13-45); MEAN CORPUSCULAR HEMOGLOBIN 26.9 pg (27.0-33.4); MEAN CORPUSCULAR HGB CONC 32.9 g/dL (32.0-36.0); MEAN CORPUSCULAR VOLUME 82 fl (80-97); PLATELET COUNT 314 10^3/uL (150-450); RED BLOOD COUNT 4.47 10^6/uL (4.35-5.55); RED CELL DISTRIBUTION WIDTH 16.8 % (11.5-14.0); SEGMENTED NEUTROPHILS % (AUTO) 69.1 % (42-78); WHITE BLOOD COUNT 6.1 10^3/uL (4.0-10.5)
[2018-07-15 19:32] LABS: ALANINE AMINOTRANSFERASE 26 U/L (21-72); ALBUMIN 3.3 g/dL (3.5-5.0); ALKALINE PHOSPHATASE 89 U/L (38-126); ANION GAP 7 (5-19); ASPARTATE AMINO TRANSFERASE 16 U/L (17-59); BILIRUBIN,DIRECT 0.2 mg/dL (0.0-0.4); BILIRUBIN,TOTAL 0.5 mg/dL (0.2-1.3); BLOOD UREA NITROGEN 19 mg/dL (7-20); CALCIUM 8.5 mg/dL (8.4-10.2); CARBON DIOXIDE 30 mmol/L (22-30); CHLORIDE 98 mmol/L (98-107); CREATINE KINASE 101 U/L (55-170); GLUCOSE 247 mg/dL (75-110); SODIUM 134.8 mmol/L (137-145); TOTAL PROTEIN 6.2 g/dL (6.3-8.2)
--- NOTE | 2018-07-15 19:37 | EKG REPORT ---
SEVERITY:- ABNORMAL ECG - SINUS TACHYCARDIA VENTRICULAR PREMATURE COMPLEX PROBABLE LEFT ATRIAL ABNORMALITY LEFT AXIS DEVIATION NONSPECIFIC T ABNORMALITIES, LATERAL LEADS BORDERLINE PROLONGED QT INTERVAL : Confirmed by: Loyda Fernandes MD 15-Jul-2018 19:37:44
[2018-07-15 19:44] LABS: CREATINE KINASE MB 1.13 ng/mL (<4.55); TROPONIN I 0.025 ng/mL
--- NOTE | 2018-07-15 20:36 | ER Document Report ---
ED General - General Chief Complaint: Chest Pain Stated Complaint: SHORT OF BREATH/LEG SWELLING Time Seen by Provider: 07/15/18 18:43 Mode of Arrival: Wheelchair Notes: RME Provider note: This is a 47-year-old man with a history of congenital heart disease (VSDs with repair), cardiomyopathy (ejection fraction 30%), CHF, CVA with left hemiparesis who presents to the emergency room with shortness of breath, dyspnea on exertion, lower extremity bilateral edema extending from the legs all the way up to the abdomen, increased weight gain of 18 pounds in the last week. My HPI: Patient states he also has some generalized chest pressure when he lies flat. States when he sits up his breathing gets better on the chest pressure is relieved. TRAVEL OUTSIDE OF THE [place] IN LAST 30 DAYS: No - Related Data Allergies/Adverse Reactions: Shellfish * [Shellfish] Allergy (Severe, Verified 07/15/18 18:28) Anaphylaxis morphine [Morphine] Allergy (Mild, Verified 07/15/18 18:28) cyclobenzaprine [From Flexeril] Allergy (Verified 07/15/18 18:28) diazepam [From Valium] Allergy (Verified 07/15/18 18:28) diphenhydramine Allergy (Verified 07/15/18 18:28) furosemide [From Lasix] Allergy (Verified 07/15/18 18:28) shellfish derived Allergy (Verified 07/15/18 18:28) Past Medical History - General Information source: Patient - Social History Smoking Status: Unknown if Ever Smoked Family History: Arthritis, Malignancy, CAD, CVA, DM, Hyperlipidemia, Hypertension, Reviewed & Not Pertinent, Other Patient has suicidal ideation: No Patient has homicidal ideation: No - Past Medical History Cardiac Medical History: Reports: Hx Congestive Heart Failure, Hx Coronary Artery Disease, Hx DVT - right leg., Hx Heart Attack, Hx Hypercholesterolemia, Hx Hypertension, Hx Heart Murmur Pulmonary Medical History: Reports: Hx Pneumonia Denies: Hx Asthma, Hx COPD, Hx Tuberculosis Neurological Medical History: Reports: Hx Cerebrovascular Accident - Lt sided weakness, Hx Migraine, Hx Seizures Endocrine Medical History: Reports: Hx Diabetes Mellitus Type 1, Hx Diabetes Mellitus Type 2. Denies: Hx Hyperthyroidism, Hx Hypothyroidism Renal/ Medical History: Reports: Hx Kidney Stones. Denies: Hx Peritoneal Dialysis GI Medical History: Reports: Hx Gastroesophageal Reflux Disease. Denies: Hx Cirrhosis, Hx Hepatitis Musculoskeletal Medical History: Reports Hx Arthritis, Reports Hx Muscle Weakness - Left Skin Medical History: Reports Hx Eczema, Denies Hx MRSA, Reports Hx Psoriasis Psychiatric Medical History: Denies: Hx Depression, Hx Schizoaffective Disorder Infectious Medical History: Denies: Hx Hepatitis, Hx MRSA Past Surgical History: Reports: Hx Cardiac Catheterization, Hx Cardiac Surgery - VSD having four previous surgeries as a child; heart valve defect, Hx Open Heart Surgery - VSD having five previous surgeries as a child; heart valve defect, Hx Vascular Surgery - Stents in right leg, Other - 4 separate operations for ventricular septal defect as a child.. Denies: Hx Pacemaker - Immunizations Immunizations up to date: Yes Hx Diphtheria, Pertussis, Tetanus Vaccination: Yes Hx Pneumococcal Vaccination: 03/24/18 Review of Systems - Review of Systems Constitutional: denies: Fever EENT: No symptoms reported Cardiovascular: See HPI Respiratory: See HPI Gastrointestinal: See HPI Genitourinary: See HPI Male Genitourinary: No symptoms reported Musculoskeletal: See HPI Skin: See HPI Hematologic/Lymphatic: No symptoms reported Neurological/Psychological: No symptoms reported Physical Exam - Vital signs Vitals: Temp Pulse Resp BP Pulse Ox 98.1 F 71 20 182/115 H 100 07/15/18 18:31 07/15/18 18:31 07/15/18 18:31 07/15/18 18:31 07/15/18 18:31 - Notes Notes: GENERAL: Alert, interacts well. No acute distress. HEAD: Normocephalic, atraumatic. EYES: Pupils equal, round, and reactive to light. Extraocular movements intact. ENT: Oral mucosa moist, tongue midline. NECK: Full range of motion. Supple. Trachea midline. LUNGS: Inspiratory and expiratory rales heard bilateral bases, minor respiratory distress when you asked the patient to answer questions. HEART: Regular rate and rhythm. No murmur ABDOMEN: Soft, non-tender. Non-distended. Bowel sounds present in all 4 quadrants. Edema noted below patient's abdomen to bilateral lower extremity. EXTREMITIES: Moves all 4 extremities spontaneously. normal radial and dorsalis pedis pulses bilaterally. No cyanosis. +2 pitting edema noted entire bilateral lower extremities. 5 out of 5 strength noted right upper and lower extremity. 4 out of 4 strength noted left upper and lower extremity, patient states this is his normal due to CVA. BACK: no cervical, thoracic, lumbar midline tenderness. NEUROLOGICAL: Alert and oriented x3. Normal speech. cranial nerves II through XI I grossly intact. PSYCH: Normal affect, normal mood. SKIN: Warm, dry. Course - Re-evaluation Re-evalutation: When speaking with the patient he does appear to be intermittently tachypneic. Patient's BNP is 6580 which is as high as it has ever been documented at this facility. Patient's troponin is 0.025. Due to his chronic kidney failure and in reviewing past troponins his troponin is always elevated. Patient's checks x-ray does show pulmonary edema coincided with his physical exam. Discussed case with Dr. Noriega and recommend admission to the hospital for congestive heart failure exacerbation. Dr. Noriega agrees. - Vital Signs Vital signs: Temp Pulse Resp BP Pulse Ox 98.2 F 100 28 H 159/126 H 97 07/16/18 07:13 07/16/18 07:13 07/16/18 07:13 07/16/18 07:13 07/16/18 07:13 - Laboratory Result Diagrams: 07/15/18 19:10 07/15/18 19:10 Laboratory results interpreted by me: 07/15/18 07/15/18 07/15/18 19:10 19:10 19:10 Hgb 12.0 L Hct 36.6 L MCH 26.9 L RDW 16.8 H Sodium 134.8 L Creatinine 1.85 H Est GFR ( Amer) 48 L Est GFR (Non-Af Amer) 40 L Glucose 247 H AST 16 L NT-Pro-B Natriuret Pep 6580 H Total Protein 6.2 L Albumin 3.3 L Discharge - Discharge Clinical Impression: Pulmonary vascular congestion Congestive heart failure Qualifiers: Heart failure type: unspecified Heart failure chronicity: acute on chronic Qualified Code(s): I50.9 - Heart failure, unspecified Dyspnea Qualifiers: Dyspnea type: acute respiratory distress Qualified Code(s): R06.03 - Acute respiratory distress Condition: Stable Disposition: ADMITTED INPATIENT Admitting Provider: Leann Unit Admitted: Telemetry
[2018-07-15 21:08] LABS: APPEARANCE,URINE CLEAR; BILIRUBIN,URINE NEGATIVE (NEGATIVE); COLOR,URINE STRAW; GLUCOSE, URINE 50 mg/dL (NEGATIVE); KETONES,URINE NEGATIVE (NEGATIVE); LEUKOCYTE ESTERASE,URINE NEGATIVE (NEGATIVE); NITRITE,URINE NEGATIVE (NEGATIVE); PROTEIN,URINE 100 mg/dL (NEGATIVE); URINE SPECIFIC GRAVITY 1.008; UROBILINOGEN,URINE NEGATIVE mg/dL (<2.0)
[2018-07-15 22:16] LABS: INTERNATIONAL RATION (INR) 1.14; PROTHROMBIN TIME 15.2 SEC (11.4-15.4)
[2018-07-15 22:17] LABS: PARTIAL THROMBOPLASTIN TIME 34.1 SEC (23.5-35.8)
[2018-07-15] MEDS: ENOXAPARIN SODIUM INJ 40 MG/0.4 ML DISP.SYRIN SUBCUT SCH (22:36)
[2018-07-15 22:43] LABS: FREE T4 (FREE THYROXINE) 1.25 ng/dL (0.78-2.19)
[2018-07-15 22:43] LABS: UR PRO/CREAT RATIO RESULT 3.1 mg/mg (0.0-0.2); URINE CREATININE 43.6 mg/dL (22-328); URINE PROTEIN 135.7 mg/dL (<12)
[2018-07-15 22:58] LABS: THYROID STIMULATING HORMONE 1.54 uIU/mL (0.47-4.68)
[2018-07-16 01:36] LABS: CREATINE KINASE MB 1.1 ng/mL (<4.55); TROPONIN I 0.027 ng/mL
[2018-07-16 07:52] LABS: ABSOLUTE EOSINOPHILS # (AUTO) 0.1 10^3/uL (0.0-0.6); ABSOLUTE LYMPHOCYTES (AUTO) 1.2 10^3/uL (0.5-4.7); ABSOLUTE MONOCYTES (AUTO) 0.4 10^3/uL (0.1-1.4); ABSOLUTE NEUT (AUTO) 3.7 10^3/uL (1.7-8.2); BASOPHILS % (AUTO) 0.9 % (0-2); EOSINOPHILS % (AUTO) 1.1 % (0-6); HEMATOCRIT 35.7 % (37.9-51.0); HEMOGLOBIN 11.7 g/dL (13.5-17.0); LYMPHOCYTES % (AUTO) 22.9 % (13-45); MEAN CORPUSCULAR HEMOGLOBIN 26.4 pg (27.0-33.4); MEAN CORPUSCULAR HGB CONC 32.7 g/dL (32.0-36.0); MEAN CORPUSCULAR VOLUME 81 fl (80-97); MONOCYTES % (AUTO) 6.8 % (3-13); PLATELET COUNT 293 10^3/uL (150-450); RED BLOOD COUNT 4.41 10^6/uL (4.35-5.55); RED CELL DISTRIBUTION WIDTH 16.8 % (11.5-14.0); SEGMENTED NEUTROPHILS % (AUTO) 68.3 % (42-78); TOTAL CELLS COUNTED % (AUTO) 100 %; WHITE BLOOD COUNT 5.4 10^3/uL (4.0-10.5)
[2018-07-16 08:04] LABS: ALANINE AMINOTRANSFERASE 24 U/L (21-72); ALBUMIN 3.3 g/dL (3.5-5.0); ALKALINE PHOSPHATASE 89 U/L (38-126); ANION GAP 7 (5-19); ASPARTATE AMINO TRANSFERASE 15 U/L (17-59); BILIRUBIN,DIRECT 0.2 mg/dL (0.0-0.4); BILIRUBIN,TOTAL 0.8 mg/dL (0.2-1.3); BLOOD UREA NITROGEN 19 mg/dL (7-20); CALCIUM 8.4 mg/dL (8.4-10.2); CARBON DIOXIDE 31 mmol/L (22-30); CHLORIDE 98 mmol/L (98-107); CHOLESTEROL 152.82 mg/dL (0-200); CREATINE KINASE 78 U/L (55-170); GLUCOSE 266 mg/dL (75-110); POTASSIUM 3.7 mmol/L (3.6-5.0); SODIUM 135.8 mmol/L (137-145); TOTAL PROTEIN 6.4 g/dL (6.3-8.2); TRIGLYCERIDES 87 mg/dL (<150)
[2018-07-16 08:18] LABS: DIRECT LDL 102 mg/dL (<100)
[2018-07-16 08:19] LABS: CREATINE KINASE MB 0.91 ng/mL (<4.55); TROPONIN I 0.024 ng/mL
[2018-07-16] MEDS ORDERED: DEXTROSE 50%-WATER SYRINGE 25 GM/50 ML DOSE IV PRN (08:30)
[2018-07-16] MEDS ORDERED: DEXTROSE 40% GEL 15 GM TUBE PO PRN (08:30)
[2018-07-16] MEDS ORDERED: GLUCAGON,HUMAN RECOMB 1 MG INJ IM PRN (08:30)
[2018-07-16] MEDS ORDERED: DEXTROSE 50%-WATER SYRINGE 12.5 GM/25 ML DOSE IV PRN (08:30)
[2018-07-16] MEDS ORDERED: DEXTROSE 40% GEL 15 GM TUBE X 2 PO PRN (08:30)
[2018-07-16] MEDS ORDERED: CLONIDINE HCL 0.1 MG TABLET PO ONE (09:30)
[2018-07-16] MEDS ORDERED: BUMETANIDE 1 MG TABLET PO SCH (10:00)
[2018-07-16] MEDS ORDERED: (PENDING PHARMACY ID) (Apremilast [Otezla] 30 MG) PO SCH (10:00)
[2018-07-16] MEDS ORDERED: (PENDING PHARMACY ID) (Sitagliptin Phos/Metformin Hcl [Janumet 50-1,000 Mg Tablet] 1 EACH) PO SCH (10:00)
[2018-07-16] MEDS ORDERED: (PENDING PHARMACY ID) (Valsartan/Hydrochlorothiazide [Valsartan-Hctz 320-12.5 Mg Tab] 1 EA PO SCH (10:00)
[2018-07-16] MEDS ORDERED: BUMETANIDE INJ/PF 1 MG/4 ML SDV IV SCH (10:00)
[2018-07-16] MEDS: METFORMIN HCL 500 MG TABLET PO SCH ×2 (10:05→17:15)
[2018-07-16] MEDS: INSULIN LISPRO 100 UNIT/ML 3 ML VIAL SUBCUT PRN ×2 (10:05→11:20)
[2018-07-16] MEDS: CARVEDILOL 12.5 MG TABLET PO SCH ×2 (10:05→22:13)
[2018-07-16] MEDS: AMLODIPINE BESYLATE 10 MG TABLET PO SCH (10:05)
[2018-07-16] MEDS: VALSARTAN 160 MG TABLET PO SCH (10:05)
[2018-07-16] MEDS: HYDROCHLOROTHIAZIDE 12.5 MG TABLET PO SCH (10:06)
[2018-07-16] MEDS: SITAGLIPTIN PHOSPHATE 50 MG TABLET PO SCH (10:06)
[2018-07-16 10:59] LABS: APPEARANCE,URINE CLEAR; BILIRUBIN,URINE NEGATIVE (NEGATIVE); COLOR,URINE STRAW; GLUCOSE, URINE 50 mg/dL (NEGATIVE); KETONES,URINE NEGATIVE (NEGATIVE); LEUKOCYTE ESTERASE,URINE NEGATIVE (NEGATIVE); NITRITE,URINE NEGATIVE (NEGATIVE); PROTEIN,URINE 100 mg/dL (NEGATIVE); URINE SPECIFIC GRAVITY 1.006; UROBILINOGEN,URINE NEGATIVE mg/dL (<2.0)
[2018-07-16] MEDS: HYDROCODONE/ACETAMINOPHEN 10-325 MG TABLET PO PRN ×2 (11:20→20:23)
[2018-07-16] MEDS: ISOSORB DINIT/HYDRALAZINE HCL 20-37.5 MG TABLET PO SCH ×2 (13:48→22:24)
[2018-07-16] MEDS: CLONIDINE HCL 0.2 MG TABLET PO SCH ×2 (13:48→22:13)
[2018-07-16 14:13] LABS: CREATINE KINASE MB 0.87 ng/mL (<4.55); TROPONIN I 0.024 ng/mL
[2018-07-16] MEDS: BUMETANIDE INJ/PF 1 MG/4 ML SDV IV SCH ×2 (14:49→17:15)
[2018-07-16] MEDS: METOLAZONE 5 MG TABLET PO SCH (14:54)
[2018-07-16] MEDS: CLOTRIMAZOLE/BETAMETHASONE DIP CREAM 15 GM TOP SCH (17:16)
--- NOTE | 2018-07-16 17:26 | PDOC H&P ---
History of Present Illness Admission Date/PCP: 07/15/18 20:44 KARTHIK RICCI MD History of Present Illness: SHARON JERONIMO is a 47 year old male,He has a history of chronic systolic and diastolic heart failure, coronary artery disease, type 2 diabetes mellitus plaquing psoriasis, he came to the emergency room for evaluation of acute onset bilateral lower extremity edema up to the knee, he was alarmed by this symptom. He stated that he was doing well, he just moved to a new apartment, he lives by himself, since the last hospital discharge when he was admitted for the management of pneumonia he has not been to the office for follow-up, in the emergency room he was evaluated, he was diagnosed as having decompensated congestive heart failure, it was felt in the emergency room the patient needed to be admitted to the hospital for further evaluation and management Past Medical History Cardiac Medical History: Reports: Congestive Heart Failure, Coronary Artery Disease, DVT - right leg., Myocardial Infarction, Hyperlipidema, Hypertension, Heart Murmur Pulmonary Medical History: Reports: Pneumonia Neurological Medical History: Reports: Migraine, Seizures Endocrine Medical History: Reports: Diabetes Mellitus Type 2 GI Medical History: Reports: Gastroesophageal Reflux Disease Musculoskeltal Medical History: Reports: Arthritis Skin Medical History: Reports: Eczema, Psoriasis Psychiatric Medical History: Denies: Depression, Schizoaffective Disorder Past Surgical History Past Surgical History: Reports: Cardiac Catheterization, Vascular Surgery - Stents in right leg, Other - 4 separate operations for ventricular septal defect as a child. Social History Smoking Status: Former Smoker Frequency of Alcohol Use: None Hx Recreational Drug Use: No Drugs: None Hx Prescription Drug Abuse: No - Advance Directive Resuscitation Status: Full Code Family History Family History: Arthritis, Malignancy, CAD, CVA, DM, Hyperlipidemia, Hypertension, Reviewed & Not Pertinent, Other Parental Family History Reviewed: Yes Children Family History Reviewed: Yes Sibling(s) Family History Reviewed.: Yes Medication/Allergy Home Medications: Amlodipine Besylate [Norvasc 10 mg Tablet] 10 mg PO DAILY 07/16/18 Apremilast [Otezla] 30 mg PO Q12 07/16/18 Bumetanide [Bumex 2 mg Tablet] 2 mg PO DAILY 07/16/18 Carvedilol [Coreg 12.5 mg Tablet] 25 mg PO Q12 07/16/18 Clonidine HCl [Catapres 0.2 mg Tablet] 0.2 mg PO Q8 07/16/18 Hydrocodone Bit/Acetaminophen [Hydrocodon-Acetaminophn 10-325] 1 each PO Q8HP PRN 07/16/18 Isosorb Dinit/Hydralazine HCl [Bidil 20-37.5 mg Tablet] 1 tab PO Q8 07/16/18 Sitagliptin Phos/Metformin HCl [Janumet 50-1,000 Mg Tablet] 1 each PO BID 07/16/18 Valsartan/Hydrochlorothiazide [Valsartan-Hctz 320-12.5 mg Tab] 1 each PO DAILY 07/16/18 Allergies/Adverse Reactions: Shellfish * [Shellfish] Allergy (Severe, Verified 07/15/18 18:28) Anaphylaxis morphine [Morphine] Allergy (Mild, Verified 07/15/18 18:28) cyclobenzaprine [From Flexeril] Allergy (Verified 07/15/18 18:28) diazepam [From Valium] Allergy (Verified 07/15/18 18:28) diphenhydramine Allergy (Verified 07/15/18 18:28) furosemide [From Lasix] Allergy (Verified 07/15/18 18:28) shellfish derived Allergy (Verified 07/15/18 18:28) Review of Systems Constitutional: ABSENT: chills, fever(s), headache(s), weight gain, weight loss Eyes: ABSENT: visual disturbances Ears: ABSENT: hearing changes Cardiovascular: PRESENT: as per HPI, dyspnea on exertion, edema, other Respiratory: ABSENT: cough, hemoptysis Gastrointestinal: ABSENT: abdominal pain, constipation, diarrhea, hematemesis, hematochezia, nausea, vomiting Genitourinary: ABSENT: dysuria, hematuria Musculoskeletal: ABSENT: joint swelling Integumentary: ABSENT: rash, wounds Neurological: ABSENT: abnormal gait, abnormal speech, confusion, dizziness, focal weakness, syncope Psychiatric: ABSENT: anxiety, depression, homidical ideation, suicidal ideation Endocrine: ABSENT: cold intolerance, heat intolerance, menstrual abnormalities, polydipsia, polyuria Hematologic/Lymphatic: ABSENT: easy bleeding, easy bruising, lymphadenopathy Physical Exam Vital Signs: Temp Pulse Resp BP Pulse Ox 98.3 F 76 16 105/58 L 90 L 07/16/18 16:50 07/16/18 16:50 07/16/18 16:50 07/16/18 16:50 07/16/18 16:50 Intake & Output 07/15/18 07/16/18 07/17/18 06:59 06:59 06:59 Intake Total 400 Output Total 2049 600 Balance -2049 -200 Weight 116.7 kg General appearance: PRESENT: no acute distress Head exam: PRESENT: atraumatic, normocephalic Eye exam: PRESENT: conjunctiva pink, EOMI, PERRLA Ear exam: PRESENT: normal external ear exam Mouth exam: PRESENT: moist, tongue midline Neck exam: PRESENT: full ROM Respiratory exam: PRESENT: clear to auscultation bernardo Cardiovascular exam: PRESENT: RRR, +S1, +S2 GI/Abdominal exam: PRESENT: normal bowel sounds, soft Rectal exam: PRESENT: deferred Extremities exam: PRESENT: pedal edema Neurological exam: PRESENT: alert, CN II-XII grossly intact Psychiatric exam: PRESENT: appropriate affect, normal mood Skin exam: PRESENT: dry, intact, warm, other - severe Psoriatic plaque exte nsively distributed involving the torso and extremities Results Laboratory Results: 07/16/18 07:27 07/16/18 07:27 07/15/18 07/15/18 07/15/18 19:10 19:10 19:10 WBC 6.1 RBC 4.47 Hgb 12.0 L Hct 36.6 L MCV 82 MCH 26.9 L MCHC 32.9 RDW 16.8 H Plt Count 314 Seg Neutrophils % 69.1 Lymphocytes % 20.9 Monocytes % 7.0 Eosinophils % 1.0 Basophils % 2.0 Absolute Neutrophils 4.2 Absolute Lymphocytes 1.3 Absolute Monocytes 0.4 Absolute Eosinophils 0.1 Absolute Basophils 0.1 Sodium 134.8 L Potassium 4.0 Chloride 98 Carbon Dioxide 30 Anion Gap 7 BUN 19 Creatinine 1.85 H Est GFR ( Amer) 48 L Est GFR (Non-Af Amer) 40 L Glucose 247 H Calcium 8.5 Magnesium 1.7 Total Bilirubin 0.5 AST 16 L ALT 26 Alkaline Phosphatase 89 Total Protein 6.2 L Albumin 3.3 L Triglycerides Cholesterol LDL Cholesterol Direct VLDL Cholesterol HDL Cholesterol TSH Free T4 Urine Color Urine Appearance Urine pH Ur Specific [place] Urine Protein Urine Glucose (UA) Urine Ketones Urine Blood Urine Nitrite Ur Leukocyte Esterase Urine WBC (Auto) Urine RBC (Auto) 01/07/15/18 07/16/18 19:10 20:50 07:27 WBC RBC Hgb Hct MCV MCH MCHC RDW Plt Count Seg Neutrophils % Lymphocytes % Monocytes % Eosinophils % Basophils % Absolute Neutrophils Absolute Lymphocytes Absolute Monocytes Absolute Eosinophils Absolute Basophils Sodium 135.8 L Potassium 3.7 Chloride 98 Carbon Dioxide 31 H Anion Gap 7 BUN 19 Creatinine 1.38 H Est GFR ( Amer) > 60 Est GFR (Non-Af Amer) 55 L Glucose 266 H Calcium 8.4 Magnesium Total Bilirubin 0.8 AST 15 L ALT 24 Alkaline Phosphatase 89 Total Protein 6.4 Albumin 3.3 L Triglycerides 87 Cholesterol 152.82 LDL Cholesterol Direct 102 H VLDL Cholesterol 17.0 HDL Cholesterol 44 TSH 1.54 Free T4 1.25 Urine Color STRAW Urine Appearance CLEAR Urine pH 6.0 Ur Specific [place] 1.008 Urine Protein 100 H Urine Glucose (UA) 50 H Urine Ketones NEGATIVE Urine Blood NEGATIVE Urine Nitrite NEGATIVE Ur Leukocyte Esterase NEGATIVE Urine WBC (Auto) 0 Urine RBC (Auto) 0 07/16/18 07/16/18 07:27 10:40 WBC 5.4 RBC 4.41 Hgb 11.7 L Hct 35.7 L MCV 81 MCH 26.4 L MCHC 32.7 RDW 16.8 H Plt Count 293 Seg Neutrophils % 68.3 Lymphocytes % 22.9 Monocytes % 6.8 Eosinophils % 1.1 Basophils % 0.9 Absolute Neutrophils 3.7 Absolute Lymphocytes 1.2 Absolute Monocytes 0.4 Absolute Eosinophils 0.1 Absolute Basophils 0.0 Sodium Potassium Chloride Carbon Dioxide Anion Gap BUN Creatinine Est GFR ( Amer) Est GFR (Non-Af Amer) Glucose Calcium Magnesium Total Bilirubin AST ALT Alkaline Phosphatase Total Protein Albumin Triglycerides Cholesterol LDL Cholesterol Direct VLDL Cholesterol HDL Cholesterol TSH Free T4 Urine Color STRAW Urine Appearance CLEAR Urine pH 6.0 Ur Specific [place] 1.006 Urine Protein 100 H Urine Glucose (UA) 50 H Urine Ketones NEGATIVE Urine Blood NEGATIVE Urine Nitrite NEGATIVE Ur Leukocyte Esterase NEGATIVE Urine WBC (Auto) 0 Urine RBC (Auto) 0 07/15/18 07/15/18 07/16/18 19:10 19:10 01:00 Creatine Kinase 101 CK-MB (CK-2) 1.13 1.10 Troponin I 0.025 0.027 NT-Pro-B Natriuret Pep 6580 H 07/16/18 07/16/18 07/16/18 01:00 07:27 07:27 Creatine Kinase 89 78 CK-MB (CK-2) 0.91 Troponin I 0.024 NT-Pro-B Natriuret Pep 07/16/18 07/16/18 13:17 13:17 Creatine Kinase 67 CK-MB (CK-2) 0.87 Troponin I 0.024 NT-Pro-B Natriuret Pep Impressions: Chest X-Ray 07/15/18 18:55 IMPRESSION: Congestive failure. Possible asymmetric right upper lobe pulmonary edema. Assessment & Plan - Diagnosis (1) Acute combined systolic and diastolic heart failure Is this a current diagnosis for this admission?: Yes Plan: Patient is admitted to be managed for acute decompensated chronic systolic and diastolic heart failure,The last 2D echo done on 04/12/2018 demonstrated ejection fraction 35% of left ventricle grade 2 diastolic dysfunction (2) Plaque psoriasis Is this a current diagnosis for this admission?: Yes (3) Diabetes mellitus Qualifiers: Diabetes mellitus type: type 2 Diabetes mellitus assisted insulin use: with intermodal dispatcher use Diabetes mellitus complication status: with neurologic complications Diabetes mellitus complication detail: with polyneuropathy Qualified Code(s): E11.42 - Type 2 diabetes mellitus with diabetic polyneuropathy; Z79.4 - alf (current) use of insulin Is this a current diagnosis for this admission?: Yes
[2018-07-16] MEDS: ENOXAPARIN SODIUM INJ 40 MG/0.4 ML DISP.SYRIN SUBCUT SCH (22:12)
[2018-07-17 05:17] LABS: ABSOLUTE BASOPHILS # (AUTO) 0.1 10^3/uL (0.0-0.2); ABSOLUTE EOSINOPHILS # (AUTO) 0.1 10^3/uL (0.0-0.6); ABSOLUTE LYMPHOCYTES (AUTO) 1.5 10^3/uL (0.5-4.7); ABSOLUTE MONOCYTES (AUTO) 0.5 10^3/uL (0.1-1.4); ABSOLUTE NEUT (AUTO) 4.5 10^3/uL (1.7-8.2); BASOPHILS % (AUTO) 1.1 % (0-2); EOSINOPHILS % (AUTO) 1.7 % (0-6); HEMATOCRIT 35.7 % (37.9-51.0); HEMOGLOBIN 11.8 g/dL (13.5-17.0); LYMPHOCYTES % (AUTO) 22.2 % (13-45); MEAN CORPUSCULAR HEMOGLOBIN 26.7 pg (27.0-33.4); MEAN CORPUSCULAR HGB CONC 33.1 g/dL (32.0-36.0); MEAN CORPUSCULAR VOLUME 81 fl (80-97); MONOCYTES % (AUTO) 7.1 % (3-13); PLATELET COUNT 318 10^3/uL (150-450); RED BLOOD COUNT 4.43 10^6/uL (4.35-5.55); RED CELL DISTRIBUTION WIDTH 16.6 % (11.5-14.0); SEGMENTED NEUTROPHILS % (AUTO) 67.9 % (42-78); TOTAL CELLS COUNTED % (AUTO) 100 %; WHITE BLOOD COUNT 6.7 10^3/uL (4.0-10.5)
[2018-07-17] MEDS: ISOSORB DINIT/HYDRALAZINE HCL 20-37.5 MG TABLET PO SCH ×3 (05:54→22:35)
[2018-07-17] MEDS: CLONIDINE HCL 0.2 MG TABLET PO SCH ×3 (05:55→22:35)
[2018-07-17] MEDS: CARVEDILOL 12.5 MG TABLET PO SCH ×2 (10:38→22:36)
[2018-07-17] MEDS: BUMETANIDE INJ/PF 1 MG/4 ML SDV IV SCH ×2 (10:38→17:43)
[2018-07-17] MEDS: METFORMIN HCL 500 MG TABLET PO SCH ×2 (10:38→17:43)
[2018-07-17] MEDS: HYDROCHLOROTHIAZIDE 12.5 MG TABLET PO SCH (10:38)
[2018-07-17] MEDS: METOLAZONE 5 MG TABLET PO SCH (10:38)
[2018-07-17] MEDS: VALSARTAN 160 MG TABLET PO SCH (10:38)
[2018-07-17] MEDS: CLOTRIMAZOLE/BETAMETHASONE DIP CREAM 15 GM TOP SCH ×2 (10:39→17:44)
[2018-07-17] MEDS: AMLODIPINE BESYLATE 10 MG TABLET PO SCH (10:39)
[2018-07-17] MEDS: SITAGLIPTIN PHOSPHATE 50 MG TABLET PO SCH (10:39)
[2018-07-17] MEDS: INSULIN LISPRO 100 UNIT/ML 3 ML VIAL SUBCUT PRN ×2 (12:51→22:39)
[2018-07-17] MEDS: HYDROCODONE/ACETAMINOPHEN 10-325 MG TABLET PO PRN (13:36)
[2018-07-17 16:38] LABS: A/G RATIO 0.8 (0.7-1.7); ALBUMIN 2 2.9 g/dL (2.9-4.4); ALPHA-2-GLOBULIN 2 0.5 g/dL (0.4-1.0); BETA GLOBULINS 1.1 g/dL (0.7-1.3); GAMMA GLOBULIN 1.6 g/dL (0.4-1.8); GLOBULIN TOTAL 3.5 g/dL (2.2-3.9); MONOCLONAL SPIKE Not Observed g/dL (Not Observ); PROTEIN TOTAL SERUM 6.4 g/dL (6.0-8.5)
--- NOTE | 2018-07-17 18:31 | PDOC PROGRESS REPORT ---
Subjective Progress Note for:: 07/17/18 Subjective:: Patient was seen by the bedside, a complaint of burning pain in the sole of both feet, the urine protein /creatinine ratio is 3.1, there is associated hypoalbuminemia suggesting nephrotic syndrome. He had episode of wide-complex vital signs white blood he had episode of wide-complex tachycardia today Reason For Visit: ACUTE SYSTOLIC HEART FAILURE Physical Exam Vital Signs: Temp Pulse Resp BP Pulse Ox 98.6 F 82 16 139/76 H 94 07/17/18 15:10 07/17/18 15:10 07/17/18 15:10 07/17/18 15:10 07/17/18 15:10 Intake & Output 07/16/18 07/17/18 07/18/18 06:59 06:59 06:59 Intake Total 640 1373 Output Total 2049 3280 1650 Balance -2049 -0 -277 Weight 116.7 kg 114.3 kg General appearance: PRESENT: no acute distress Eye exam: PRESENT: PERRLA Respiratory exam: PRESENT: clear to auscultation bernardo Cardiovascular exam: PRESENT: +S1, +S2 GI/Abdominal exam: PRESENT: soft Extremities exam: PRESENT: pedal edema Neurological exam: PRESENT: alert Results Laboratory Results: 07/17/18 04:19 07/16/18 07:27 07/17/18 04:19 WBC 6.7 RBC 4.43 Hgb 11.8 L Hct 35.7 L MCV 81 MCH 26.7 L MCHC 33.1 RDW 16.6 H Plt Count 318 Seg Neutrophils % 67.9 Lymphocytes % 22.2 Monocytes % 7.1 Eosinophils % 1.7 Basophils % 1.1 Absolute Neutrophils 4.5 Absolute Lymphocytes 1.5 Absolute Monocytes 0.5 Absolute Eosinophils 0.1 Absolute Basophils 0.1 07/15/18 07/15/18 07/16/18 19:10 19:10 01:00 Creatine Kinase 101 CK-MB (CK-2) 1.13 1.10 Troponin I 0.025 0.027 NT-Pro-B Natriuret Pep 6580 H 07/16/18 07/16/18 07/16/18 01:00 07:27 07:27 Creatine Kinase 89 78 CK-MB (CK-2) 0.91 Troponin I 0.024 NT-Pro-B Natriuret Pep 07/16/18 07/16/18 13:17 13:17 Creatine Kinase 67 CK-MB (CK-2) 0.87 Troponin I 0.024 NT-Pro-B Natriuret Pep Impressions: Chest X-Ray 07/15/18 18:55 IMPRESSION: Congestive failure. Possible asymmetric right upper lobe pulmonary edema. Assessment & Plan - Diagnosis (1) Acute combined systolic and diastolic heart failure Is this a current diagnosis for this admission?: Yes Plan: Consult Dr. Fernandes, he saw him last time he was in the hospital (2) Plaque psoriasis Is this a current diagnosis for this admission?: Yes (3) Diabetes mellitus Qualifiers: Diabetes mellitus type: type 2 Diabetes mellitus computer terminal operator insulin use: with computer terminal operator use Diabetes mellitus complication status: with neurologic complications Diabetes mellitus complication detail: with polyneuropathy Qualified Code(s): E11.42 - Type 2 diabetes mellitus with diabetic polyneuropathy; Z79.4 - oil heaterman (current) use of insulin Is this a current diagnosis for this admission?: Yes (4) Nephrotic syndrome Is this a current diagnosis for this admission?: Yes Plan: The edema is part of the nephrotic syndrome, history of diabetes, this is probably related to the diabetes mellitus, consult nephrology,? does he need kidney biopsy to rule out other glomerulopathy, if he has retinopathy then it is most likely from diabetes (5) Neuropathy Is this a current diagnosis for this admission?: Yes Plan: Start Lyrica
[2018-07-17 19:23] LABS: CHOLESTEROL 170.12 mg/dL (0-200); TRIGLYCERIDES 98 mg/dL (<150)
[2018-07-17 19:34] LABS: DIRECT LDL 109 mg/dL (<100)
--- NOTE | 2018-07-17 21:08 | EKG REPORT ---
SEVERITY:- ABNORMAL ECG - SINUS RHYTHM LEFT ATRIAL ABNORMALITY BORDERLINE IVCD WITH LAD ABNORMAL T, CONSIDER ISCHEMIA, ANT-LAT LEADS : Confirmed by: Loyda Fernandes MD 17-Jul-2018 21:07:27
[2018-07-17] MEDS: SPIRONOLACTONE 25 MG TABLET PO SCH (22:34)
[2018-07-17] MEDS: ENOXAPARIN SODIUM INJ 40 MG/0.4 ML DISP.SYRIN SUBCUT SCH (22:37)
[2018-07-17] MEDS: PREGABALIN 50 MG CAPSULE PO SCH (22:38)
[2018-07-18] MEDS: ISOSORB DINIT/HYDRALAZINE HCL 20-37.5 MG TABLET PO SCH ×3 (06:45→21:38)
[2018-07-18] MEDS: CLONIDINE HCL 0.2 MG TABLET PO SCH ×3 (06:46→21:38)
[2018-07-18] MEDS: INSULIN LISPRO 100 UNIT/ML 3 ML VIAL SUBCUT PRN ×4 (08:07→21:46)
[2018-07-18] MEDS: VALSARTAN 160 MG TABLET PO SCH (09:48)
[2018-07-18] MEDS: METFORMIN HCL 500 MG TABLET PO SCH ×2 (09:48→18:11)
[2018-07-18] MEDS: CARVEDILOL 12.5 MG TABLET PO SCH ×2 (09:49→21:39)
[2018-07-18] MEDS: SPIRONOLACTONE 25 MG TABLET PO SCH (09:49)
[2018-07-18] MEDS: HYDROCHLOROTHIAZIDE 12.5 MG TABLET PO SCH (09:49)
[2018-07-18] MEDS: BUMETANIDE INJ/PF 1 MG/4 ML SDV IV SCH ×2 (09:49→18:11)
[2018-07-18] MEDS: METOLAZONE 5 MG TABLET PO SCH (09:49)
[2018-07-18] MEDS: PREGABALIN 50 MG CAPSULE PO SCH ×2 (09:49→21:38)
[2018-07-18] MEDS: AMLODIPINE BESYLATE 10 MG TABLET PO SCH (09:49)
[2018-07-18] MEDS: SITAGLIPTIN PHOSPHATE 50 MG TABLET PO SCH (09:49)
[2018-07-18] MEDS: CLOTRIMAZOLE/BETAMETHASONE DIP CREAM 15 GM TOP SCH ×2 (09:50→18:11)
[2018-07-18] MEDS: HYDROCODONE/ACETAMINOPHEN 10-325 MG TABLET PO PRN (15:17)
[2018-07-18 15:38] LABS: A/G RATIO. 0.9 (0.7-1.7); ALBUMIN 3 2.9 g/dL (2.9-4.4); ALPHA-1-GLOBULIN 0.2 g/dL (0.0-0.4); BETA GLOBULIN 1.1 g/dL (0.7-1.3); GAMMA GLOBULINS 1.6 g/dL (0.4-1.8); IMMUNOGLOBULIN A 288 mg/dL (90-386); IMMUNOGLOBULIN G 1647 mg/dL (700-1600); IMMUNOGLOBULIN M 49 mg/dL (20-172); MONOCLONAL-SPIKE Not Observed g/dL (Not Observ); PROTEIN TOTAL SERUM 6.3 g/dL (6.0-8.5)
--- NOTE | 2018-07-18 20:11 | PDOC PROGRESS REPORT ---
Subjective Progress Note for:: 07/18/18 Subjective:: Patient seen by the bedside the lower extremity edema is partly from nephrotic syndrome, the urine protein creatinine ratio is 3.1 Reason For Visit: ACUTE SYSTOLIC HEART FAILURE Physical Exam Vital Signs: Temp Pulse Resp BP Pulse Ox 97.9 F 77 18 108/66 96 07/18/18 15:53 07/18/18 19:00 07/18/18 15:53 07/18/18 15:53 07/18/18 15:53 Intake & Output 07/17/18 07/18/18 07/19/18 06:59 06:59 06:59 Intake Total 640 7812 472 Output Total 3280 3350 1425 Balance -2640 4462 -953 Weight 114.3 kg 112.4 kg General appearance: PRESENT: no acute distress Eye exam: PRESENT: PERRLA Respiratory exam: PRESENT: clear to auscultation bernardo Cardiovascular exam: PRESENT: +S1, +S2 GI/Abdominal exam: PRESENT: soft Neurological exam: PRESENT: alert Results Laboratory Results: 07/17/18 04:19 07/16/18 07:27 07/15/18 07/15/18 19:10 19:10 Total Protein 6.4 6.3 Albumin 2.9 2.9 07/16/18 10:40 Clean Catch Midstream Urine Culture - Final NO GROWTH 2 DAYS 07/15/18 07/15/18 07/16/18 19:10 19:10 01:00 Creatine Kinase 101 CK-MB (CK-2) 1.13 1.10 Troponin I 0.025 0.027 NT-Pro-B Natriuret Pep 6580 H 07/16/18 07/16/18 07/16/18 01:00 07:27 07:27 Creatine Kinase 89 78 CK-MB (CK-2) 0.91 Troponin I 0.024 NT-Pro-B Natriuret Pep 07/16/18 07/16/18 13:17 13:17 Creatine Kinase 67 CK-MB (CK-2) 0.87 Troponin I 0.024 NT-Pro-B Natriuret Pep Impressions: Chest X-Ray 07/15/18 18:55 IMPRESSION: Congestive failure. Possible asymmetric right upper lobe pulmonary edema. Assessment & Plan - Diagnosis (1) Acute combined systolic and diastolic heart failure Is this a current diagnosis for this admission?: Yes (2) Plaque psoriasis Is this a current diagnosis for this admission?: Yes (3) Diabetes mellitus Qualifiers: Diabetes mellitus type: type 2 Diabetes mellitus laborer marine terminal insulin use: wi th mcfp use Diabetes mellitus complication status: with neurologic c omplications Diabetes mellitus complication detail: with polyneuropathy Qualified Code(s): E11.42 - Type 2 diabetes mellitus with diabetic polyneu ropathy; Z79.4 - exterminator termite (current) use of insulin Is this a current diagnosis for this admission?: Yes (4) Nephrotic syndrome Is this a current diagnosis for this admission?: Yes (5) Neuropathy Is this a current diagnosis for this admission?: Yes - Plan Summary Plan Summary: Continue treatment
[2018-07-18] MEDS: ENOXAPARIN SODIUM INJ 40 MG/0.4 ML DISP.SYRIN SUBCUT SCH (21:40)
[2018-07-19] MEDS: CLONIDINE HCL 0.2 MG TABLET PO SCH ×3 (06:08→21:20)
[2018-07-19] MEDS: ISOSORB DINIT/HYDRALAZINE HCL 20-37.5 MG TABLET PO SCH ×3 (06:08→21:20)
[2018-07-19] MEDS: AMLODIPINE BESYLATE 10 MG TABLET PO SCH (09:23)
[2018-07-19] MEDS: CARVEDILOL 12.5 MG TABLET PO SCH ×2 (09:23→21:19)
[2018-07-19] MEDS: METFORMIN HCL 500 MG TABLET PO SCH ×2 (09:23→18:11)
[2018-07-19] MEDS: HYDROCHLOROTHIAZIDE 12.5 MG TABLET PO SCH (09:23)
[2018-07-19] MEDS: SPIRONOLACTONE 25 MG TABLET PO SCH (09:23)
[2018-07-19] MEDS: SITAGLIPTIN PHOSPHATE 50 MG TABLET PO SCH (09:23)
[2018-07-19] MEDS: METOLAZONE 5 MG TABLET PO SCH (09:23)
[2018-07-19] MEDS: VALSARTAN 160 MG TABLET PO SCH (09:24)
[2018-07-19] MEDS: PREGABALIN 50 MG CAPSULE PO SCH ×2 (09:24→21:20)
[2018-07-19] MEDS: CLOTRIMAZOLE/BETAMETHASONE DIP CREAM 15 GM TOP SCH ×2 (09:24→18:13)
[2018-07-19] MEDS: BUMETANIDE INJ/PF 1 MG/4 ML SDV IV SCH ×2 (09:24→18:11)
[2018-07-19] MEDS: INSULIN LISPRO 100 UNIT/ML 3 ML VIAL SUBCUT PRN ×4 (09:25→21:20)
[2018-07-19] MEDS: HYDROCODONE/ACETAMINOPHEN 10-325 MG TABLET PO PRN (18:12)
--- NOTE | 2018-07-19 18:44 | PDOC PROGRESS REPORT ---
Subjective Progress Note for:: 07/19/18 Subjective:: Patient was seen by the bedside Reason For Visit: ACUTE SYSTOLIC HEART FAILURE Physical Exam Vital Signs: Temp Pulse Resp BP Pulse Ox 97.7 F 79 18 140/94 H 96 07/19/18 11:40 07/19/18 11:40 07/19/18 11:40 07/19/18 11:40 07/19/18 11:40 Intake & Output 07/18/18 07/19/18 07/20/18 06:59 06:59 06:59 Intake Total 7812 874 1476 Output Total 3350 3125 225 Balance 4469 -8591 1251 Weight 112.4 kg General appearance: PRESENT: no acute distress Eye exam: PRESENT: PERRLA Respiratory exam: PRESENT: clear to auscultation bernardo Cardiovascular exam: PRESENT: +S1, +S2 GI/Abdominal exam: PRESENT: soft Neurological exam: PRESENT: alert Results Laboratory Results: 07/17/18 04:19 07/16/18 07:27 07/15/18 07/15/18 07/16/18 19:10 19:10 01:00 Creatine Kinase 101 CK-MB (CK-2) 1.13 1.10 Troponin I 0.025 0.027 NT-Pro-B Natriuret Pep 6580 H 07/16/18 07/16/18 07/16/18 01:00 07:27 07:27 Creatine Kinase 89 78 CK-MB (CK-2) 0.91 Troponin I 0.024 NT-Pro-B Natriuret Pep 07/16/18 07/16/18 13:17 13:17 Creatine Kinase 67 CK-MB (CK-2) 0.87 Troponin I 0.024 NT-Pro-B Natriuret Pep Impressions: Chest X-Ray 07/15/18 18:55 IMPRESSION: Congestive failure. Possible asymmetric right upper lobe pulmonary edema. Assessment & Plan - Diagnosis (1) Acute combined systolic and diastolic heart failure Is this a current diagnosis for this admission?: Yes (2) Plaque psoriasis Is this a current diagnosis for this admission?: Yes (3) Diabetes mellitus Qualifiers: Diabetes mellitus type: type 2 Diabetes mellitus fpc insulin use: with fpc use Diabetes mellitus complication status: with neurologic complications Diabetes mellitus complication detail: with polyneuropathy Qualified Code(s): E11.42 - Type 2 diabetes mellitus with diabetic polyneuropathy; Z79.4 - long-term (current) use of insulin Is this a current diagnosis for this admission?: Yes (4) Nephrotic syndrome Is this a current diagnosis for this admission?: Yes (5) Neuropathy Is this a current diagnosis for this admission?: Yes
[2018-07-19] MEDS: ENOXAPARIN SODIUM INJ 40 MG/0.4 ML DISP.SYRIN SUBCUT SCH (21:21)
[2018-07-20] MEDS: ISOSORB DINIT/HYDRALAZINE HCL 20-37.5 MG TABLET PO SCH ×3 (05:53→21:47)
[2018-07-20] MEDS: HYDROCODONE/ACETAMINOPHEN 10-325 MG TABLET PO PRN (05:53)
[2018-07-20] MEDS: CLONIDINE HCL 0.2 MG TABLET PO SCH ×3 (05:54→21:47)
[2018-07-20] MEDS: METOLAZONE 5 MG TABLET PO SCH (09:15)
[2018-07-20] MEDS: AMLODIPINE BESYLATE 10 MG TABLET PO SCH (09:15)
[2018-07-20] MEDS: SITAGLIPTIN PHOSPHATE 50 MG TABLET PO SCH (09:15)
[2018-07-20] MEDS: METFORMIN HCL 500 MG TABLET PO SCH ×2 (09:15→18:27)
[2018-07-20] MEDS: PREGABALIN 50 MG CAPSULE PO SCH ×2 (09:16→21:46)
[2018-07-20] MEDS: SPIRONOLACTONE 25 MG TABLET PO SCH (09:16)
[2018-07-20] MEDS: CARVEDILOL 12.5 MG TABLET PO SCH ×2 (09:16→21:46)
[2018-07-20] MEDS: VALSARTAN 160 MG TABLET PO SCH (09:16)
[2018-07-20] MEDS: HYDROCHLOROTHIAZIDE 12.5 MG TABLET PO SCH (09:16)
[2018-07-20] MEDS: BUMETANIDE INJ/PF 1 MG/4 ML SDV IV SCH ×2 (09:17→18:27)
[2018-07-20] MEDS: INSULIN LISPRO 100 UNIT/ML 3 ML VIAL SUBCUT PRN ×4 (09:20→21:47)
[2018-07-20] MEDS: CLOTRIMAZOLE/BETAMETHASONE DIP CREAM 15 GM TOP SCH ×2 (09:20→18:27)
--- NOTE | 2018-07-20 16:22 | PDOC PROGRESS REPORT ---
Subjective Progress Note for:: 07/20/18 Subjective:: Patient was seen by the bedside, he diuresed quite efficiently, on multiple diuretic, yet to be seen by nephrology, he has nephrotic syndrome, he does not have any documented history of retinopathy suggesting that he may need a kidney biopsy, will leave that up to the rehab specialist to decide Reason For Visit: ACUTE SYSTOLIC HEART FAILURE Physical Exam Vital Signs: Temp Pulse Resp BP Pulse Ox 98.1 F 87 18 182/109 H 99 07/20/18 11:20 07/20/18 14:00 07/20/18 11:20 07/20/18 11:20 07/20/18 11:20 Intake & Output 07/19/18 07/20/18 07/21/18 06:59 06:59 06:59 Intake Total 874 1920 Output Total 3125 1025 Balance -2251 895 Weight 111.7 kg General appearance: PRESENT: no acute distress Head exam: PRESENT: atraumatic, normocephalic Eye exam: PRESENT: conjunctiva pink, EOMI, PERRLA Ear exam: PRESENT: normal external ear exam Mouth exam: PRESENT: moist, tongue midline Neck exam: PRESENT: full ROM Respiratory exam: PRESENT: clear to auscultation bernardo Cardiovascular exam: PRESENT: RRR, +S1, +S2 Vascular exam: PRESENT: normal capillary refill GI/Abdominal exam: PRESENT: normal bowel sounds, soft Rectal exam: PRESENT: deferred Neurological exam: PRESENT: alert, CN II-XII grossly intact Psychiatric exam: PRESENT: appropriate affect, normal mood Skin exam: PRESENT: dry, intact, warm Results Laboratory Results: 07/17/18 04:19 07/16/18 07:27 07/15/18 07/15/18 07/16/18 19:10 19:10 01:00 Creatine Kinase 101 CK-MB (CK-2) 1.13 1.10 Troponin I 0.025 0.027 NT-Pro-B Natriuret Pep 6580 H 07/16/18 07/16/18 07/16/18 01:00 07:27 07:27 Creatine Kinase 89 78 CK-MB (CK-2) 0.91 Troponin I 0.024 NT-Pro-B Natriuret Pep 07/16/18 07/16/18 13:17 13:17 Creatine Kinase 67 CK-MB (CK-2) 0.87 Troponin I 0.024 NT-Pro-B Natriuret Pep Impressions: Chest X-Ray 07/15/18 18:55 IMPRESSION: Congestive failure. Possible asymmetric right upper lobe pulmonary edema. Assessment & Plan - Diagnosis (1) Acute combined systolic and diastolic heart failure Is this a current diagnosis for this admission?: Yes Plan: Continue treatment (2) Plaque psoriasis Is this a current diagnosis for this admission?: Yes (3) Diabetes mellitus Qualifiers: Diabetes mellitus type: type 2 Diabetes mellitus manager long term care insulin use: with manager long term care use Diabetes mellitus complication status: with neurologic complications Diabetes mellitus complication detail: with polyneuropathy Q ualified Code(s): E11.42 - Type 2 diabetes mellitus with diabetic polyneuropathy; Z79.4 - manager long term care (current) use of insulin Is this a current diagnosis for this admission?: Yes (4) Nephrotic syndrome Is this a current diagnosis for this admission?: Yes Plan: Consult nephrology (5) Neuropathy Is this a current diagnosis for this admission?: Yes
[2018-07-20 17:16] LABS: ALANINE AMINOTRANSFERASE 22 U/L (21-72); ALBUMIN 3.8 g/dL (3.5-5.0); ALKALINE PHOSPHATASE 92 U/L (38-126); ANION GAP 8 (5-19); ASPARTATE AMINO TRANSFERASE 25 U/L (17-59); BILIRUBIN,DIRECT 0.3 mg/dL (0.0-0.4); BILIRUBIN,TOTAL 0.6 mg/dL (0.2-1.3); BLOOD UREA NITROGEN 31 mg/dL (7-20); CARBON DIOXIDE 34 mmol/L (22-30); CHLORIDE 95 mmol/L (98-107); GLUCOSE 175 mg/dL (75-110); POTASSIUM 3.7 mmol/L (3.6-5.0); SODIUM 137.4 mmol/L (137-145); TOTAL PROTEIN 7.1 g/dL (6.3-8.2)
[2018-07-20] MEDS: ENOXAPARIN SODIUM INJ 40 MG/0.4 ML DISP.SYRIN SUBCUT SCH (21:47)
[2018-07-21] MEDS: CLONIDINE HCL 0.2 MG TABLET PO SCH ×3 (05:17→22:24)
[2018-07-21] MEDS: ISOSORB DINIT/HYDRALAZINE HCL 20-37.5 MG TABLET PO SCH ×3 (05:18→22:24)
[2018-07-21] MEDS: METFORMIN HCL 500 MG TABLET PO SCH ×2 (11:13→18:40)
[2018-07-21] MEDS: METOLAZONE 5 MG TABLET PO SCH (11:14)
[2018-07-21] MEDS: HYDROCHLOROTHIAZIDE 12.5 MG TABLET PO SCH (11:14)
[2018-07-21] MEDS: VALSARTAN 160 MG TABLET PO SCH (11:14)
[2018-07-21] MEDS: SITAGLIPTIN PHOSPHATE 50 MG TABLET PO SCH (11:14)
[2018-07-21] MEDS: SPIRONOLACTONE 25 MG TABLET PO SCH (11:14)
[2018-07-21] MEDS: AMLODIPINE BESYLATE 10 MG TABLET PO SCH (11:14)
[2018-07-21] MEDS: CARVEDILOL 12.5 MG TABLET PO SCH ×2 (11:15→22:24)
[2018-07-21] MEDS: PREGABALIN 50 MG CAPSULE PO SCH ×2 (11:15→22:24)
[2018-07-21] MEDS: CLOTRIMAZOLE/BETAMETHASONE DIP CREAM 15 GM TOP SCH ×2 (11:16→18:41)
[2018-07-21] MEDS: BUMETANIDE INJ/PF 1 MG/4 ML SDV IV SCH ×2 (11:16→18:40)
[2018-07-21] MEDS: INSULIN LISPRO 100 UNIT/ML 3 ML VIAL SUBCUT PRN ×3 (11:16→22:26)
[2018-07-21] MEDS: HYDROCODONE/ACETAMINOPHEN 10-325 MG TABLET PO PRN (13:47)
[2018-07-21 16:38] LABS: ALBUMIN UR 59.2 % (.); ALPHA-1-GLOBULIN URINE 5.6 % (.); ALPHA-2-GLOBULIN URINE 5.4 % (.); GAMMA GLOBULIN URINE 17.9 % (.); M-SPIKE % UR Not Observed % (Not Observ); PROTEIN TOTAL URINE 124.6 mg/dL (Not Estab.)
--- NOTE | 2018-07-21 17:10 | PDOC CONSULTATION ---
Consultation Consult Date: 07/21/18 Attending physician:: KARTHIK RICCI Consult reason:: I was asked to see the patient due to nephrotic range proteinuria, uncontrolled hypertension and an episode of AK I. History of Present Illness Admission Date/PCP: 07/15/18 20:44 KARTHIK RICCI MD History of Present Illness: SHARON JERONIMO is a 47 year old -[place] male with history of [place] estive heart failure, coronary artery disease, hypertension, diabetes mellitus, history of stroke who was admitted on July 15, 2018 because of increasing lower extremity swelling which all seem involves his hands. He was admitted with acute on chronic combined systolic and diastolic heart failure. Patient said that the swelling has gotten worse suggesting a matter of 1 day. He reports some occasional chest pains and shortness of breath. He was taking Bumex 2 mg initially once a day and later on he agrees to twice a day prior to admission but did not really work on his swelling. During his hospitalization he is being given IV Bumex which seems to work with his swelling. Currently he almost does not have any swelling at all. Patient also initially presented with elevated BUN of 19 with creatinine of 1.85 and estimated GFR 48. It has improved to BUN of 31, creatinine of 1.3 and e stimated GFR of 75.8-76.4. He has mild anemia. He also was found to have a urine protein to creatinine ratio of 3.1 which is within nephrotic range. The urine protein electrophoresis is pending. Patient said he has had leg swelling in the past but not to this extent. He denies note of any foamy urine or blood in the urine is making adequate amount of urine output. He denies any history of use nor abuse of nonsteroidal anti-inflammatory agents. He denies any history of hepatitis. He denies any family history of any kidney disease that he is aware of. He denies intake of any herbal medications. His blood pressure has been uncontrolled. He is on about 6- 7 blood pressure medications already. Blood pressure range from 150-180/90 200 teens. Records show that he was worked up for secondary causes of hypertension. On June 23, 2018 he had a duplex of renal artery showing bilaterally normal-sized kidneys but no evidence of renal artery stenosis. In February 2016 he had a 24-hour urine protein of 522. In April 2016 he had normal metanephrines. His diabetes is also not very well. His inguinal hemoglobin A1c was 10.2. Blood sugars currently range from 150-200s. Currently he seems to be doing fine and feeling much better compared to admission. 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 Social History Information Source: Patient, [facility] Records Smoking Status: Former Smoker Frequency of Alcohol Use: None Hx Recreational Drug Use: No Drugs: None Hx Prescription Drug Abuse: No - Advance Directive Resuscitation Status: Full Code Family History Family History: Arthritis, CAD, CVA, DM, Hyperlipidemia, Hypertension, Malignancy Family History: Most of the seizures are on his maternal side. On his paternal side he said they have heart problems. Parental Family History Reviewed: Yes Children Family History Reviewed: Yes Sibling(s) Family History Reviewed.: Yes Medication/Allergy Home Medications: Amlodipine Besylate [Norvasc 10 mg Tablet] 10 mg PO DAILY 07/16/18 Apremilast [Otezla] 30 mg PO Q12 07/16/18 Bumetanide [Bumex 2 mg Tablet] 2 mg PO DAILY 07/16/18 Carvedilol [Coreg 12.5 mg Tablet] 25 mg PO Q12 07/16/18 Clonidine HCl [Catapres 0.2 mg Tablet] 0.2 mg PO Q8 07/16/18 Hydrocodone Bit/Acetaminophen [Hydrocodon-Acetaminophn 10-325] 1 each PO Q8HP PRN 07/16/18 Isosorb Dinit/Hydralazine HCl [Bidil 20-37.5 mg Tablet] 1 tab PO Q8 07/16/18 Sitagliptin Phos/Metformin HCl [Janumet 50-1,000 Mg Tablet] 1 each PO BID 07/16/18 Valsartan/Hydrochlorothiazide [Valsartan-Hctz 320-12.5 mg Tab] 1 each PO DAILY 07/16/18 Allergies/Adverse Reactions: Shellfish * [Shellfish] Allergy (Severe, Verified 07/15/18 18:28) Anaphylaxis morphine [Morphine] Allergy (Mild, Verified 07/15/18 18:28) cyclobenzaprine [From Flexeril] Allergy (Verified 07/15/18 18:28) diazepam [From Valium] Allergy (Verified 07/15/18 18:28) diphenhydramine Allergy (Verified 07/15/18 18:28) furosemide [From Lasix] Allergy (Verified 07/15/18 18:28) shellfish derived Allergy (Verified 07/15/18 18:28) Review of Systems All systems: reviewed and no additional remarkable complaints except as stated Review of Systems: Constitutional: ABSENT: chills, fatigue, fever(s), headache(s), weight gain, weight loss Eyes: ABSENT: visual disturbances Ears: ABSENT: hearing changes Cardiovascular: ABSENT: Orthropnea, palpitations; initially the patient has had lower extremity edema, and admits to occasional chest pains and shortness of breath Respiratory: ABSENT: cough, dyspnea, hemoptysis Gastrointestinal: ABSENT: abdominal pain, constipation, diarrhea, hematemesis, hematochezia, nausea, vomiting Genitourinary: ABSENT: dysuria, hematuria Musculoskeletal: ABSENT: joint swelling Integumentary: ABSENT: rash, wounds Neurological: ABSENT: abnormal gait, abnormal speech, confusion, dizziness, focal weakness, numbness, syncope Psychiatric: ABSENT: anxiety, depression Endocrine: ABSENT: cold intolerance, heat intolerance, polydipsia, polyuria Hematologic/Lymphatic: ABSENT: easy bleeding, easy bruising, lymphadenopathy Physical Exam Vital Signs: Temp Pulse Resp BP Pulse Ox 98.1 F 61 16 176/116 H 96 07/21/18 15:29 07/21/18 15:29 07/21/18 15:29 07/21/18 15:29 07/21/18 15:29 Intake & Output 07/20/18 07/21/18 07/22/18 06:59 06:59 06:59 Intake Total 1920 1508 472 Output Total 1025 1975 250 Balance 895 -467 222 Weight 111.7 kg 111.4 kg Exam: General appearance: No acute distress, cooperative, well-developed, well- nourished Head exam: PRESENT: atraumatic, normocephalic Eye exam: PRESENT: Conjunctiva Ruch, EOMI, PERRLA. ABSENT: conjunctival injection, scleral icterus Mouth exam: PRESENT: moist, neck supple, tongue midline Neck exam: PRESENT: full ROM. ABSENT: carotid bruit, JVD, lymphadenopathy, thyromegaly Respiratory exam: PRESENT: clear to auscultation bilaterally. ABSENT: rales, rhonchi, stridor, wheezes Cardiovascular exam: PRESENT: RRR, +S1, +S2. ABSENT: systolic murmur Pulses: PRESENT: normal radial pulses, normal dorsalis pedis pulses GI/Abdominal exam: PRESENT: normal bowel sounds, soft. ABSENT: guarding, mass, tenderness Rectal exam: Deferred Extremities exam: PRESENT: full ROM. ABSENT: calf tenderness, pedal edema Musculoskeletal: PRESENT: full ROM. ABSENT: deformity Neurological exam: PRESENT: alert, Awake, Oriented to person, Oriented to place, Oriented to time, reflexes normal, CN II-XII grossly intact. Positive baseline left-sided hemiparesis ABSENT: Sensory deficit Psychiatric exam: PRESENT: appropriate affect, normal mood. ABSENT: homicidal ideation, suicidal ideation Skin exam: PRESENT: intact, dry, warm. Positive psoriasis on lower extremities Results Laboratory Results: 07/17/18 04:19 07/20/18 16:43 07/20/18 16:43 Sodium 137.4 Potassium 3.7 Chloride 95 L Carbon Dioxide 34 H Anion Gap 8 BUN 31 H Creatinine 1.30 H Est GFR ( Amer) > 60 Est GFR (Non-Af Amer) 59 L Glucose 175 H Calcium 9.0 Total Bilirubin 0.6 AST 25 ALT 22 Alkaline Phosphatase 92 Total Protein 7.1 Albumin 3.8 07/15/18 07/15/18 07/16/18 19:10 19:10 01:00 Creatine Kinase 101 CK-MB (CK-2) 1.13 1.10 Troponin I 0.025 0.027 NT-Pro-B Natriuret Pep 6580 H 07/16/18 07/16/18 07/16/18 01:00 07:27 07:27 Creatine Kinase 89 78 CK-MB (CK-2) 0.91 Troponin I 0.024 NT-Pro-B Natriuret Pep 07/16/18 07/16/18 13:17 13:17 Creatine Kinase 67 CK-MB (CK-2) 0.87 Troponin I 0.024 NT-Pro-B Natriuret Pep Impressions: Chest X-Ray 07/15/18 18:55 IMPRESSION: Congestive failure. Possible asymmetric right upper lobe pulmonary edema. Assessment & Plan - Diagnosis (1) Proteinuria Is this a current diagnosis for this admission?: Yes Plan: Urine protein to creatinine ratio is 3.1. Patient has normal albumin and normal cholesterol. Currently he does not have any more edema. The first and foremost consideration on this patient causing his proteinuria within nephrotic range is more likely secondary to diabetic nephropathy in a patient with uncontrolled diabetes. However we cannot exclude other glomerular disease including FSGS but I favor diabetic nephropathy more than the latter. Doing a kidney biopsy will confirm diagnosis however at this point is probably not been a globe changer which includes BABAK or ARB which the patient is already on and diuretics to manage the swelling. He does not really warrant any cytotoxic medications at this point. For that reason I do not really think that we need to do a kidney biopsy at this point. We will do a 24-hour urine for protein creatinine clearance. Continue valsartan. (2) Chronic kidney disease, stage II (mild) Is this a current diagnosis for this admission?: Yes Plan: Patient initially presented with acute kidney injury on top of underlying chronic kidney disease with creatinine of 1.8 but currently patient is almost at baseline kidney function. Again this is most likely secondary to a combination of diabetic nephropathy and hypertensive nephrosclerosis. Best treatment for this is control of both diabetes and hypertension. Today educated the patient regarding compliance with diet including low-salt and low-protein as well as diabetic diet. Also I will emphasized the importance of being compliant with medications and follow-up with physicians. (3) Acute on chronic combined systolic (congestive) and diastolic (congestive) heart failure Is this a current diagnosis for this admission?: Yes Plan: Improved and currently appears to be clinically compensated. (4) Hypertension Qualifiers: Hypertension type: essential hypertension Qualified Code(s): I10 - Essential (primary) hypertension Is this a current diagnosis for this admission?: Yes Plan: Chronically uncontrolled and severe. I think her goal for this patient is to have pressure around 150-160 systolic. I do not think he can tolerate any blood pressure lower than that. We will check his plasma renin, aldosterone, TSH and a.m. cortisol. Increase clonidine to 0.2 mg p.o. every 8 hours. Continue all other current medications. (5) Diabetes mellitus Qualifiers: Diabetes mellitus type: type 2 Diabetes mellitus clam grower insulin use: without clam grower use Diabetes mellitus complication status: with unspecified complications Qualified Code(s): E11.8 - Type 2 diabetes mellitus with unspecified complications Is this a current diagnosis for this admission?: Yes Plan: Uncontrolled. Defer to Dr. Laura Perez. - Notes Notes: Thank you very much for this consultation. We will follow the patient with you. - Time Time Spent: 50 to 70 Minutes
--- NOTE | 2018-07-21 20:59 | PDOC PROGRESS REPORT ---
Subjective Progress Note for:: 07/21/18 Subjective:: Patient seen by bedside, he was seen today by nephrology no kidney biopsy was recommended Reason For Visit: ACUTE SYSTOLIC HEART FAILURE Physical Exam Vital Signs: Temp Pulse Resp BP Pulse Ox 98.3 F 86 22 H 191/118 H 94 07/21/18 19:17 07/21/18 19:17 07/21/18 19:17 07/21/18 19:17 07/21/18 19:17 Intake & Output 07/20/18 07/21/18 07/22/18 06:59 06:59 06:59 Intake Total 1920 1508 972 Output Total 1025 1975 1150 Balance 895 -160 -116 Weight 111.7 kg 111.4 kg General appearance: PRESENT: no acute distress Head exam: PRESENT: atraumatic, normocephalic Eye exam: PRESENT: conjunctiva pink, EOMI, PERRLA Ear exam: PRESENT: normal external ear exam Mouth exam: PRESENT: moist, tongue midline Neck exam: PRESENT: full ROM Respiratory exam: PRESENT: clear to auscultation bernardo Cardiovascular exam: PRESENT: RRR, +S1, +S2 Pulses: PRESENT: normal dorsalis pedis pul, +2 pedal pulses bilateral Vascular exam: PRESENT: normal capillary refill GI/Abdominal exam: PRESENT: normal bowel sounds, soft Rectal exam: PRESENT: deferred Neurological exam: PRESENT: alert, CN II-XII grossly intact Skin exam: PRESENT: dry, intact, warm. ABSENT: cyanosis, rash Results Laboratory Results: 07/17/18 04:19 07/20/18 16:43 07/15/18 07/15/18 07/16/18 19:10 19:10 01:00 Creatine Kinase 101 CK-MB (CK-2) 1.13 1.10 Troponin I 0.025 0.027 NT-Pro-B Natriuret Pep 6580 H 07/16/18 07/16/18 07/16/18 01:00 07:27 07:27 Creatine Kinase 89 78 CK-MB (CK-2) 0.91 Troponin I 0.024 NT-Pro-B Natriuret Pep 07/16/18 07/16/18 13:17 13:17 Creatine Kinase 67 CK-MB (CK-2) 0.87 Troponin I 0.024 NT-Pro-B Natriuret Pep Impressions: Chest X-Ray 07/15/18 18:55 IMPRESSION: Congestive failure. Possible asymmetric right upper lobe pulmonary edema. Assessment & Plan - Diagnosis (1) Acute combined systolic and diastolic heart failure Is this a current diagnosis for this admission?: Yes Plan: Continue present treatment (2) Plaque psoriasis Is this a current diagnosis for this admission?: Yes (3) Diabetes mellitus Qualifiers: Diabetes mellitus type: type 2 Diabetes mellitus residential insulin use: with residential use Diabetes mellitus complication status: with neurologic complications Diabetes mellitus complication detail: with polyneuropathy Qualified Code(s): E11.42 - Type 2 diabetes mellitus with diabetic polyneuropathy; Z79.4 - senior living (current) use of insulin Is this a current diagnosis for this admission?: Yes (4) Nephrotic syndrome Is this a current diagnosis for this admission?: Yes Plan: Patient seen by nephrology undergoing evaluation (5) Neuropathy Is this a current diagnosis for this admission?: Yes
[2018-07-21] MEDS: ENOXAPARIN SODIUM INJ 40 MG/0.4 ML DISP.SYRIN SUBCUT SCH (22:26)
--- NOTE | 2018-07-21 22:35 | Progress Note ---
Provider Note Provider Note: CARDIOLOGY PROGRESS NOTE by Dr. Loyda Hopper on 07/21/2018. SUBJECTIVE: The patient denies any chest pain or discomfort. There is no PND orthopnea. There is no shortness of breath at rest. There is no arrhythmias seen on the monitor. The patient states his leg edema is improving. There is no TIA CVA symptoms which are new. The patient is old CVA with mild left-sided hemiparesis. SUBJECTIVE: The patient is mildly obese. He is in no acute distress. He is well-groomed. Selected Entries 07/21/18 19:17 Temperature 98.3 F Temperature Oral Source Pulse Rate 86 Respiratory 22 H Rate Blood Pressure 191/118 H Blood Pressure 142 Mean BP Location Left Arm BP Position Supine O2 Sat by Pulse 94 Oximetry Oxygen Delivery Room Air Method HEAD: Is atraumatic normocephalic PERRLA. EYES: Pupils are equal round regular reactive to light accommodation. There is no conjunctival pallor. There is no scleral icterus. EARS: External auditory canals are clear. Tympanic membranes are intact. NOSE: Nasal mucous membranes are not inflamed. There is no deviated nasal septum. MOUTH: Mucous membranes of mouth are moist. Tongue is moist. There is no ulcers in the mouth. There is no bleeding from the gums. THROAT: There is no redness of the oropharynx. There is no exudates in the throat. SKIN: There is some psoriatic plaques. There is no petechia or ecchymosis. NECK: Is supple. There is no JVD. Carotids are equal there is no bruit. There is no lymphadenopathy. There is no goiter. There is no accessory muscles of respiration use. Trachea central. LUNGS: There is a few dry crackles in the right lower lobe. There is no rales of CHF. There is no chest wall tenderness. HEART: S1-S2 is heard. S1 is of normal intensity. There is an S4 gallop present. There is no S3 gallop. There is systolic murmur left sternal border and the apex. There is no rub. ABDOMEN: Is soft. Nontender. Bowel sounds are well heard. There is no hepatosplenomegaly. There is no guarding rebound or rigidity. EXTREMITIES: Femorals are slightly diminished. There is no femoral bruits. Leg pulses are well felt.. There is no pedal edema. There is no DVT or cellulitis. There is no calf tenderness. There is no cyanosis or clubbing. INDUCTION HEATING EQUIPMENT SETTER: The patient is conscious awake alert oriented x3. There is mild residual left sided weakness. PSYCHIATRIC: The patient judgment and insight are intact his affect is normal. 07/20/18 07/20/18 07/21/18 16:43 21:01 05:52 Sodium 137.4 Potassium 3.7 Chloride 95 L Carbon Dioxide 34 H Anion Gap 8 BUN 31 H Creatinine 1.30 H Est GFR ( Amer) > 60 Glucose 175 H POC Glucose 298 H 171 H Calcium 9.0 Total Bilirubin 0.6 Direct Bilirubin 0.3 Neonat Total Bilirubin Not Reportable Neonat Direct Bilirubin Not Reportable Neonat Indirect Bili Not Reportable AST 25 ALT 22 Alkaline Phosphatase 92 Total Protein 7.1 Albumin 3.8 07/21/18 11:05 Sodium Potassium Chloride Carbon Dioxide Anion Gap BUN Creatinine Est GFR ( Amer) Glucose POC Glucose 274 H Calcium Total Bilirubin Direct Bilirubin Neonat Total Bilirubin Neonat Direct Bilirubin Neonat Indirect Bili AST ALT Alkaline Phosphatase Total Protein Albumin MPRESSION/RECOMMENDATION: 1. Uncontrolled hypertension: Continue his valsartan, Coreg, amlodipine. The patient's BiDil has been increased to 2 tablets 3 times daily. There is no evidence of renal artery stenosis by previous admission renal Dopplers. Nephrology on the case, will have them adjust the patient's blood pressure medication. Also his serum aldosterone levels were normal and his previous admission 2. Nephrotic range proteinuria: This could be secondary to patient's diabetic nephropathy compounded by the patient's uncontrolled hypertension. 3. Coronary artery disease. History of old [place], and history of stent placement. His cath in December 2017 in [facility]: Showed nonobstructive coronary artery disease, with patent stents. At that time his echo LV ejection fraction was 55%. 4. Diabetes mellitus: Continue the patient's current antidiabetic medication. 5. History of old CVA, with residual left-sided weakness. 6. Chronic systolic and diastolic heart failure: At present compensated 6. Cardiomyopathy with moderately reduced LV ejection fraction by echo of 03/2019. We will recheck the patient's echo. This can be done as an outpatient. 7. History of psoriasis. 8.. History of migraines: At present the patient with no headache Medications reviewed. Medications added. Plan of care/management plan discussed with attending physician on the case. If nephrology hand as the patient's blood pressure, then will sign off. Medical decision making is of high complexity. 40 minutes spent on this patient more than 50% time spent in direct patient care. The patient is a full code. The patient refuses to name surrogate healthcare decision maker
[2018-07-22] MEDS: ACETAMINOPHEN 325 MG TABLET PO PRN ×2 (01:02→09:54)
[2018-07-22 05:00] LABS: ANION GAP 8 (5-19); BLOOD UREA NITROGEN 21 mg/dL (7-20); CARBON DIOXIDE 33 mmol/L (22-30); CHLORIDE 96 mmol/L (98-107); GLUCOSE 139 mg/dL (75-110); POTASSIUM 3.6 mmol/L (3.6-5.0); SODIUM 137.1 mmol/L (137-145)
[2018-07-22] MEDS: ISOSORB DINIT/HYDRALAZINE HCL 20-37.5 MG TABLET PO SCH ×2 (05:56→13:28)
[2018-07-22] MEDS: CLONIDINE HCL 0.2 MG TABLET PO SCH ×2 (05:56→13:28)
[2018-07-22] MEDS: AMLODIPINE BESYLATE 10 MG TABLET PO SCH (09:55)
[2018-07-22] MEDS: METOLAZONE 5 MG TABLET PO SCH (09:55)
[2018-07-22] MEDS: METFORMIN HCL 500 MG TABLET PO SCH ×2 (09:55→17:11)
[2018-07-22] MEDS: SITAGLIPTIN PHOSPHATE 50 MG TABLET PO SCH (09:55)
[2018-07-22] MEDS: VALSARTAN 160 MG TABLET PO SCH (09:56)
[2018-07-22] MEDS: HYDROCHLOROTHIAZIDE 12.5 MG TABLET PO SCH (09:56)
[2018-07-22] MEDS: SPIRONOLACTONE 25 MG TABLET PO SCH (09:56)
[2018-07-22] MEDS: CARVEDILOL 12.5 MG TABLET PO SCH (09:57)
[2018-07-22] MEDS: PREGABALIN 50 MG CAPSULE PO SCH (09:57)
[2018-07-22] MEDS: CLOTRIMAZOLE/BETAMETHASONE DIP CREAM 15 GM TOP SCH ×2 (09:58→17:13)
[2018-07-22] MEDS: BUMETANIDE INJ/PF 1 MG/4 ML SDV IV SCH ×2 (09:58→17:12)
[2018-07-22] MEDS: INSULIN LISPRO 100 UNIT/ML 3 ML VIAL SUBCUT SCH ×2 (11:45→17:12)
[2018-07-22] MEDS: HYDROCODONE/ACETAMINOPHEN 10-325 MG TABLET PO PRN (14:42)
--- NOTE | 2018-07-22 19:32 | PDOC DISCHARGE SUMMARY ---
General - Admit/Disc Date/PCP Admission Date/Primary Care Provider: 07/15/18 20:44 KARTHIK RICCI MD Discharge Date: 07/22/18 - Discharge Diagnosis (1) Acute combined systolic and diastolic heart failure Is this a current diagnosis for this admission?: Yes (2) Plaque psoriasis Is this a current diagnosis for this admission?: Yes (3) Diabetes mellitus Is this a current diagnosis for this admission?: Yes (4) Nephrotic syndrome Is this a current diagnosis for this admission?: Yes (5) Neuropathy Is this a current diagnosis for this admission?: Yes - Additional Information Resuscitation Status: Full Code Discharge Diet: Cardiac, Diabetic Discharge Activity: Activity As Tolerated, Balance Activity w/Rest, Weigh Daily Prescriptions: Lancing Device/Lancets [Accu-Chek Softclix Lancet Kit] 1 each QHS #180 kit Amlodipine Besylate [Norvasc 10 mg Tablet] 10 mg PO DAILY #90 tablet Apremilast [Otezla] 30 mg PO Q12 #180 tablet Blood Sugar Diagnostic [Accu-Chek Apoorva Plus] 1 strip ACHS PRN #1 pkg PRN Reason: Blood-Glucose Meter [Accu-Chek Apoorva Plus] 1 each ACHS #1 each Bumetanide [Bumex 2 mg Tablet] 2 mg PO BID #180 tablet Carvedilol [Coreg 12.5 mg Tablet] 25 mg PO Q12 #180 tablet Clonidine HCl [Catapres 0.2 mg Tablet] 0.3 mg PO Q8 #270 tablet Clotrimazole/Betamethasone Dip [Lotrisone Cream 15 gm] 1 applic TOP BID #1 tube Isosorb Dinit/Hydralazine HCl [Bidil 20-37.5 mg Tablet] 1 tab PO Q8 #270 tablet Metolazone [Zaroxolyn 5 mg Tablet] 10 mg PO DAILY #90 tablet Pregabalin [Lyrica 50 mg Capsule] 50 mg PO Q12 #180 capsule Sitagliptin Phos/Metformin HCl [Janumet 50-1,000 mg Tablet] 1 each PO BID #180 tablet Spironolactone [Aldactone 25 mg Tablet] 25 mg PO DAILY #90 tablet Valsartan [Diovan 160 mg Tablet] 320 mg PO DAILY #90 tablet Home Medications: Hydrocodone Bit/Acetaminophen [Hydrocodon-Acetaminophn 10-325] 1 each PO Q8HP PRN 07/16/18 Amlodipine Besylate [Norvasc 10 mg Tablet] 10 mg PO DAILY #90 tablet 07/22/18 Apremilast [Otezla] 30 mg PO Q12 #180 tablet 07/22/18 Blood Sugar Diagnostic [Accu-Chek Apoorva Plus] 1 strip [facility] PRN #1 pkg 07/22/18 Blood-Glucose Meter [Accu-Chek Apoorva Plus] [address] [facility] #1 each 07/22/18 Bumetanide [Bumex 2 mg Tablet] 2 mg PO BID #180 tablet 07/22/18 Carvedilol [Coreg 12.5 mg Tablet] 25 mg PO Q12 #180 tablet 07/22/18 Clonidine HCl [Catapres 0.2 mg Tablet] 0.3 mg PO Q8 #270 tablet 07/22/18 Clotrimazole/Betamethasone Dip [Lotrisone Cream 15 gm] 1 applic TOP BID #1 tube 07/22/18 Isosorb Dinit/Hydralazine HCl [Bidil 20-37.5 mg Tablet] 1 tab PO Q8 #270 tablet 07/22/18 Lancing Device/Lancets [Accu-Chek Softclix Lancet Kit] 1 each QHS #180 kit 07/22/18 Metolazone [Zaroxolyn 5 mg Tablet] 10 mg PO DAILY #90 tablet 07/22/18 Pregabalin [Lyrica 50 mg Capsule] 50 mg PO Q12 #180 capsule 07/22/18 Sitagliptin Phos/Metformin HCl [Janumet 50-1,000 mg Tablet] 1 each PO BID #180 tablet 07/22/18 Spironolactone [Aldactone 25 mg Tablet] 25 mg PO DAILY #90 tablet 07/22/18 Valsartan [Diovan 160 mg Tablet] 320 mg PO DAILY #90 tablet 07/22/18 History of Present Illness History of Present Illness: SHARON JERONIMO is a 47 year old male,He has a history of chronic systolic and diastolic heart failure, coronary artery disease, type 2 diabetes mellitus plaquing psoriasis, he came to the emergency room for evaluation of acute onset bilateral lower extremity edema up to the knee, he was alarmed by this symptom. He stated that he was doing well, he just moved to a new apartment, he lives by himself, since the last hospital discharge when he was admitted for the management of pneumonia he has not been to the office for follow-up, in the emergency room he was evaluated, he was diagnosed as having decompensated congestive heart failure, it was felt in the emergency room the patient needed to be admitted to the hospital for further evaluation and management Hospital Course Hospital Course: Patient was admitted for the management of progressive increased swelling of the lower extremity, the initial diagnosis was decompensated congestive heart failure, he has a history of chronic diastolic and systolic heart failure but further evaluation in the hospital demonstrated proteinuria, the spot urine protein creatinine ratio was 3.1 consistent with nephrotic syndrome there was associated hypoalbuminemia the combination of systolic and diastolic heart failure and nephrotic range proteinuria is the cause of the lower extremity ed sherry.He has furosemide allergy, he was treated with Bumex and metolazone diuretic with good result he was seen in consultation by nephrology Dr. salinas and cardiology Dr. Fernandes Physical Exam Vital Signs: Temp Pulse Resp BP Pulse Ox 98.3 F 72 16 114/63 93 07/22/18 18:52 07/22/18 18:52 07/22/18 18:52 07/22/18 18:52 07/22/18 18:52 Intake & Output 07/21/18 07/22/18 07/23/18 06:59 06:59 06:59 Intake Total 7979 548 8616 Output Total 1975 2750 450 Balance -467 -1778 637 Weight 111.4 kg 111.4 kg General appearance: PRESENT: no acute distress Head exam: PRESENT: atraumatic, normocephalic Eye exam: PRESENT: PERRLA Mouth exam: PRESENT: moist Neck exam: PRESENT: full ROM Respiratory exam: PRESENT: clear to auscultation bernardo Cardiovascular exam: PRESENT: RRR, +S1, +S2 Pulses: PRESENT: normal dorsalis pedis pul, +2 pedal pulses bilateral Vascular exam: PRESENT: normal capillary refill GI/Abdominal exam: PRESENT: normal bowel sounds, soft Rectal exam: PRESENT: deferred Neurological exam: PRESENT: alert, awake, oriented to person, oriented to place, oriented to time, oriented to situation, CN II-XII grossly intact Psychiatric exam: PRESENT: appropriate affect, normal mood Skin exam: PRESENT: dry, intact, warm Results Laboratory Results: 07/17/18 04:19 07/22/18 04:17 07/22/18 07/22/18 04:17 04:17 Sodium 137.1 Potassium 3.6 Chloride 96 L Carbon Dioxide 33 H Anion Gap 8 BUN 21 H Creatinine 1.07 Est GFR ( Amer) > 60 Est GFR (Non-Af Amer) > 60 Glucose 139 H Calcium 9.0 TSH 2.37 07/15/18 07/15/18 07/16/18 19:10 19:10 01:00 Creatine Kinase 101 CK-MB (CK-2) 1.13 1.10 Troponin I 0.025 0.027 NT-Pro-B Natriuret Pep 6580 H 07/16/18 07/16/18 07/16/18 01:00 07:27 07:27 Creatine Kinase 89 78 CK-MB (CK-2) 0.91 Troponin I 0.024 NT-Pro-B Natriuret Pep 07/16/18 07/16/18 13:17 13:17 Creatine Kinase 67 CK-MB (CK-2) 0.87 Troponin I 0.024 NT-Pro-B Natriuret Pep Impressions: Chest X-Ray 07/15/18 18:55 IMPRESSION: Congestive failure. Possible asymmetric right upper lobe pulmonary edema. Qualifiers - * PATIENT BEING DISCHARGED WITH ANY OF THE FOLLOWING DIAGNOSIS: No
[2018-07-22 19:59] VITALS: BP 129/93
[2018-07-22 20:08] LABS: URINE PROTEIN 160.5 mg/dL (<12)
[2018-07-22 20:09] LABS: URINE CREATININE 80.7 mg/dL (22-328)
[2018-07-22 20:17] LABS: 24 HOUR URINE PROTEIN RESULT 2989 mg/day (42-225)
[2018-07-22 20:18] LABS: CREATININE 1.07 mg/dL (0.52-1.25)
--- NOTE | 2018-07-22 20:46 | PDOC PROGRESS REPORT ---
Subjective Progress Note for:: 07/22/18 Subjective:: Patient has been doing fine and has no complaints. He did collect a 24-hour urine that I ordered yesterday. That showed a volume of 1862 mL, a 24-hour urine protein of 2989 mg and creatinine clearance of 98 which corresponds to a serum creatinine of 1.07 today. His blood pressure is a slowly decreasing although is not where we wanted to be yet but we cannot expect that either anyways. Otherwise he denies any complaints including chest pain shortness of breath or even leg swelling. Reason For Visit: ACUTE SYSTOLIC HEART FAILURE Physical Exam Vital Signs: Temp Pulse Resp BP Pulse Ox 97.9 F 66 16 129/93 H 100 07/22/18 19:44 07/22/18 19:44 07/22/18 19:44 07/22/18 19:44 07/22/18 19:44 Intake & Output 07/21/18 07/22/18 07/23/18 06:59 06:59 06:59 Intake Total 4406 148 4672 Output Total 1975 2750 450 Balance -467 -1778 637 Weight 111.4 kg 111.4 kg Exam: General appearance: PRESENT: no acute distress, cooperative, well-developed, well-nourished Head exam: PRESENT: atraumatic, normocephalic Eye exam: PRESENT: conjunctiva pink, PERRLA. ABSENT: scleral icterus Neck exam: ABSENT: JVD Respiratory exam: PRESENT: Normal breath sounds. ABSENT: crackles, rales, rhonchi, unlabored, wheezes Cardiovascular exam: PRESENT: Regular rate rhythm -+S1, +S2. ABSENT: diastolic murmur, systolic murmur GI/Abdominal exam: PRESENT: normal bowel sounds, soft. ABSENT: guarding, mass, tenderness Extremities exam: ABSENT: No edema Neurological exam: PRESENT: alert, awake, oriented to person, place and time. Skin exam: PRESENT: dry, warm, Results Laboratory Results: 07/17/18 04:19 07/22/18 19:35 07/22/18 07/22/18 07/22/18 04:17 04:17 19:35 Sodium 137.1 Potassium 3.6 Chloride 96 L Carbon Dioxide 33 H Anion Gap 8 BUN 21 H Creatinine 1.07 Est GFR ( Amer) > 60 Est GFR (Non-Af Amer) > 60 Glucose 139 H Calcium 9.0 TSH 2.37 Ur 24 Hour Volume 1862 Ur Total Protein 24 Hr 2989 H 07/22/18 19:35 Sodium Potassium Chloride Carbon Dioxide Anion Gap BUN Creatinine 1.07 Est GFR ( Amer) Est GFR (Non-Af Amer) Glucose Calcium TSH Ur 24 Hour Volume 1862 Ur Total Protein 24 Hr 07/15/18 07/15/18 07/16/18 19:10 19:10 01:00 Creatine Kinase 101 CK-MB (CK-2) 1.13 1.10 Troponin I 0.025 0.027 NT-Pro-B Natriuret Pep 6580 H 07/16/18 07/16/18 07/16/18 01:00 07:27 07:27 Creatine Kinase 89 78 CK-MB (CK-2) 0.91 Troponin I 0.024 NT-Pro-B Natriuret Pep 07/16/18 07/16/18 13:17 13:17 Creatine Kinase 67 CK-MB (CK-2) 0.87 Troponin I 0.024 NT-Pro-B Natriuret Pep Impressions: Chest X-Ray 07/15/18 18:55 IMPRESSION: Congestive failure. Possible asymmetric right upper lobe pulmonary edema. Assessment & Plan - Diagnosis (1) Proteinuria Is this a current diagnosis for this admission?: Yes Plan: This is within nephrotic range. This is most likely secondary to a combination of diabetic nephropathy and hypertensive nephrosclerosis although we cannot rule out other glomerular disease including FSGS. At this point doing a kidney biopsy is probably not going to change the management so we are going to hold it for now. The risks of doing kidney biopsy does outweigh the benefit. Discussed this with Dr. Noriega. (2) Chronic kidney disease, stage II (mild) Is this a current diagnosis for this admission?: Yes Plan: Creatinine clearance from the 24-hour urine came out to be very good at 98 mL/min based on serum creatinine of 1.07 which is improved and best kidney function he had throughout this hospitalization. (3) Acute on chronic combined systolic (congestive) and diastolic (congestive) heart failure Is this a current diagnosis for this admission?: Yes Plan: Improved and compensated. (4) Hypertension Qualifiers: Hypertension type: essential hypertension Qualified Code(s): I10 - Essential (primary) hypertension Is this a current diagnosis for this admission?: Yes Plan: Improving but still suboptimal. This needs to be followed continuously as an outpatient. Continue all current medications upon discharge. (5) Diabetes mellitus Qualifiers: Diabetes mellitus type: type 2 Diabetes mellitus terminal clerk insulin use: without [facility] use Diabetes mellitus complication status: with unspecified complications Qualified Code(s): E11.8 - Type 2 diabetes mellitus with unspecified complications Is this a current diagnosis for this admission?: Yes - Notes Notes: From nephrology standpoint patient can be discharged home. Patient can follow- up with me in 2-3 weeks. - Time Time with patient: 15-25 minutes
[2018-07-27 11:33] LABS: ALDOSTERONE RENIN RATIO 2 3.2 (0.0-30.0); RENIN ACTIVITY 1.993 ng/mL/hr (0.167-5.38)
== END 2018-07-22 20:10 | disposition home or self-care (01) | DRG 293 ==
LOC: ER 18:26 → EH 20:44 → 3N 23:01
PROVIDERS: ADMIT Internal Medicine; ATTEND Internal Medicine
DX: I11.0 Hypertensive heart disease with heart failure (principal); I50.43 Acute on chronic combined systolic (congestive) and diastolic (congestive) heart failure; L40.0 Psoriasis vulgaris; R80.9 Proteinuria, unspecified; E11.21 Type 2 diabetes mellitus with diabetic nephropathy; I25.10 Atherosclerotic heart disease of native coronary artery without angina pectoris; E78.5 Hyperlipidemia, unspecified; K21.9 Gastro-esophageal reflux disease without esophagitis; M19.90 Unspecified osteoarthritis, unspecified site; E11.42 Type 2 diabetes mellitus with diabetic polyneuropathy; M06.9 Rheumatoid arthritis, unspecified; E88.09 Other disorders of plasma-protein metabolism, not elsewhere classified; Z86.718 Personal history of other venous thrombosis and embolism; I25.2 Old myocardial infarction; Z87.01 Personal history of pneumonia (recurrent); Z95.820 Peripheral vascular angioplasty status with implants and grafts; Z79.84 Long term (current) use of oral hypoglycemic drugs; Z79.82 Long term (current) use of aspirin; Z95.5 Presence of coronary angioplasty implant and graft; Z82.61 Family history of arthritis; Z82.3 Family history of stroke; Z83.3 Family history of diabetes mellitus; Z82.49 Family history of ischemic heart disease and other diseases of the circulatory system; Z87.891 Personal history of nicotine dependence; Z91.013 Allergy to seafood; Z88.5 Allergy status to narcotic agent; Z88.8 Allergy status to other drugs, medicaments and biological substances; Z87.74 Personal history of (corrected) congenital malformations of heart and circulatory system
CPT/HCPCS: 36415; 71045; 80048; 80053; 80061; 80076; 81001; 82088; 82533; 82550; 82553; 82570; 82575; 82962; 83036; 83735; 83880; 84156; 84165; 84166; 84244; 84439; 84443; 84484; 85025; 85610; 85730; 86320; 87086; 93005; 93010; 96374; 99285; J1650; J1815; J3490

== ENCOUNTER 2018-08-04 20:44 | Observation (INO) | payer MEDICARE, MEDICAID ==
[2018-08-04] MEDS ORDERED: ASPIRIN 81 MG TABLET, CHEWABLE PO ONE (21:48)
--- NOTE | 2018-08-04 21:50 | ER Document Report ---
ED Medical Screen (RME) - General Chief Complaint: Chest Pain Stated Complaint: LEFT SIDE PAIN Time Seen by Provider: 08/04/18 21:47 Primary Care Provider: KARTHIK RICCI MD [Primary Care Provider] - Follow up as needed Notes: 47-year-old male with a history of congestive heart failure that comes to the emergency department for chief complaint of left-sided chest pain, pain with cough and deep breaths, shortness of breath especially with exertion, and bilateral lower extremity swelling. He reports compliance with medications including Bumex and spironolactone. Obiee Consultant is Dr. Benitez. TRAVEL OUTSIDE OF THE [place] IN LAST 30 DAYS: No - Related Data Allergies/Adverse Reactions: Shellfish * [Shellfish] Allergy (Severe, Verified 07/15/18 18:28) Anaphylaxis morphine [Morphine] Allergy (Mild, Verified 07/15/18 18:28) cyclobenzaprine [From Flexeril] Allergy (Verified 07/15/18 18:28) diazepam [From Valium] Allergy (Verified 07/15/18 18:28) diphenhydramine Allergy (Verified 07/15/18 18:28) furosemide [From Lasix] Allergy (Verified 07/15/18 18:28) shellfish derived Allergy (Verified 07/15/18 18:28) Past Medical History - Social History Family history: CAD - Past Medical History Cardiac Medical History: Reports: Hx Congestive Heart Failure, Hx Coronary Artery Disease, Hx DVT - right leg., Hx Heart Attack, Hx Hypercholesterolemia, Hx Hypertension, Hx Peripheral Vascular Disease, Hx Heart Murmur Pulmonary Medical History: Reports: Hx Pneumonia Denies: Hx Asthma, Hx COPD, Hx Tuberculosis Neurological Medical History: Reports: Hx Cerebrovascular Accident - Lt sided weakness, Hx Migraine, Hx Seizures Endocrine Medical History: Reports: Hx Diabetes Mellitus Type 1, Hx Diabetes Mellitus Type 2. Denies: Hx Hyperthyroidism, Hx Hypothyroidism Renal/ Medical History: Reports: Hx Kidney Stones. Denies: Hx Peritoneal Dialysis GI Medical History: Reports: Hx Gastroesophageal Reflux Disease. Denies: Hx Cirrhosis, Hx Hepatitis Musculoskeltal Medical History: Reports Hx Arthritis, Reports Hx Muscle Weakness - Left Skin Medical History: Reports Hx Eczema, Denies Hx MRSA, Reports Hx Psoriasis Psychiatric Medical History: Denies: Hx Depression, Hx Schizoaffective Disorder Infectious Medical History: Denies: Hx Hepatitis, Hx MRSA Past Surgical History: Reports: Hx Cardiac Catheterization, Hx Cardiac Surgery - VSD having four previous surgeries as a child; heart valve defect, Hx Open Heart Surgery - VSD having five previous surgeries as a child; heart valve defect, Hx Vascular Surgery - Stents in right leg, Other - 4 separate operations for ventricular septal defect as a child.. Denies: Hx Pacemaker - Immunizations Immunizations up to date: Yes Hx Diphtheria, Pertussis, Tetanus Vaccination: Yes History of Influenza Vaccine for 03/2017 - 08/2017 Season: Yes Influenza Administration Date for 03/2017 - 08/2017 Season: 05/10/17 Physical Exam - Respiratory Respiratory status: No respiratory distress. No: Labored, Tachypnea Breath sounds: Rales - Rales heard in the bases, louder on the right Course - Re-evaluation Re-evalutation: Patient hypertensive, rales in the bases of his lungs, bilateral lower extremity swelling. However he is not in distress, he does not have tachypnea. I have greeted and performed a rapid initial assessment of this patient. A comprehensive ED assessment and evaluation of the patient, analysis of test results and completion of the medical decision making process will be conducted by additional ED providers. Doctor's Discharge - Discharge Referrals: KARTHIK RICCI MD [Primary Care Provider] - Follow up as needed
[2018-08-04 22:19] LABS: ABSOLUTE BASOPHILS # (AUTO) 0.1 10^3/uL (0.0-0.2); ABSOLUTE EOSINOPHILS # (AUTO) 0.1 10^3/uL (0.0-0.6); ABSOLUTE LYMPHOCYTES (AUTO) 1.2 10^3/uL (0.5-4.7); ABSOLUTE MONOCYTES (AUTO) 0.4 10^3/uL (0.1-1.4); ABSOLUTE NEUT (AUTO) 3.7 10^3/uL (1.7-8.2); BASOPHILS % (AUTO) 1.6 % (0-2); EOSINOPHILS % (AUTO) 1.5 % (0-6); HEMATOCRIT 35.4 % (37.9-51.0); HEMOGLOBIN 11.6 g/dL (13.5-17.0); MEAN CORPUSCULAR HEMOGLOBIN 26.7 pg (27.0-33.4); MEAN CORPUSCULAR HGB CONC 32.9 g/dL (32.0-36.0); MEAN CORPUSCULAR VOLUME 81 fl (80-97); MONOCYTES % (AUTO) 7.7 % (3-13); PLATELET COUNT 290 10^3/uL (150-450); RED BLOOD COUNT 4.36 10^6/uL (4.35-5.55); RED CELL DISTRIBUTION WIDTH 16.5 % (11.5-14.0); SEGMENTED NEUTROPHILS % (AUTO) 67.2 % (42-78); TOTAL CELLS COUNTED % (AUTO) 100 %; WHITE BLOOD COUNT 5.5 10^3/uL (4.0-10.5)
--- NOTE | 2018-08-04 22:27 | RADIOLOGY REPORT (SQ) ---
EXAM DESCRIPTION: XR CHEST 1 VIEW COMPLETED DATE/TME: 08/04/2018 21:47 CLINICAL HISTORY: 47 years, Male, left sided chest pain COMPARISON: X-ray chest 07/15/2018 NUMBER OF VIEWS: TECHNIQUE: LIMITATIONS: None. FINDINGS: There is cardiomegaly. There is pulmonary vascular congestion. The above findings were also present on the prior chest x-ray. Patchy infiltrate in the right upper lobe, a finding that was present on the prior chest x-ray, is no longer seen. There is tortuosity of the thoracic aorta. No evidence of pulmonary infiltrate or pleural effusion. There is evidence of prior thoracic surgery. IMPRESSION: Cardiomegaly with pulmonary vascular congestion. copyright 2010 [employer] All Rights Reserved
[2018-08-04 22:39] LABS: ALANINE AMINOTRANSFERASE 14 U/L (21-72); ALBUMIN 3.5 g/dL (3.5-5.0); ALKALINE PHOSPHATASE 84 U/L (38-126); ANION GAP 6 (5-19); ASPARTATE AMINO TRANSFERASE 22 U/L (17-59); BILIRUBIN,DIRECT 0.4 mg/dL (0.0-0.4); BILIRUBIN,TOTAL 0.5 mg/dL (0.2-1.3); BLOOD UREA NITROGEN 20 mg/dL (7-20); CALCIUM 8.3 mg/dL (8.4-10.2); CARBON DIOXIDE 32 mmol/L (22-30); CHLORIDE 99 mmol/L (98-107); GLUCOSE 273 mg/dL (75-110); POTASSIUM 3.7 mmol/L (3.6-5.0); SODIUM 136.7 mmol/L (137-145); TOTAL PROTEIN 6.8 g/dL (6.3-8.2)
[2018-08-04 22:50] LABS: TROPONIN I 0.025 ng/mL
[2018-08-04] MEDS ORDERED: FENTANYL CITRATE INJ/PF 100 MCG/2 ML AMPUL IV ONE (23:37)
--- NOTE | 2018-08-05 00:27 | ER Document Report ---
ED General - General Chief Complaint: Chest Pain Stated Complaint: LEFT SIDE PAIN Time Seen by Provider: 08/04/18 21:47 Primary Care Provider: KARTHIK RICCI MD [Primary Care Provider] - Follow up as needed TRAVEL OUTSIDE OF THE [place] IN LAST 30 DAYS: No - HPI Notes: Patient presents emergency department for evaluation of left-sided abdominal pain and increased edema. He states the abdominal pain started today, edema started yesterday. He states he feels short of breath with exertion. He does have some orthopnea. He has had no nausea or vomiting. Normal bowel movements. No associated diaphoresis or near syncope. He has been taking his medications as prescribed. - Related Data Allergies/Adverse Reactions: Shellfish * [Shellfish] Allergy (Severe, Verified 07/15/18 18:28) Anaphylaxis morphine [Morphine] Allergy (Mild, Verified 07/15/18 18:28) cyclobenzaprine [From Flexeril] Allergy (Verified 07/15/18 18:28) diazepam [From Valium] Allergy (Verified 07/15/18 18:28) diphenhydramine Allergy (Verified 07/15/18 18:28) furosemide [From Lasix] Allergy (Verified 07/15/18 18:28) shellfish derived Allergy (Verified 07/15/18 18:28) Past Medical History - General Information source: Patient - Social History Smoking Status: Former Smoker Frequency of alcohol use: None Drug Abuse: None Family History: Arthritis, CAD, CVA, DM, Hyperlipidemia, Hypertension, Malignancy, Other Patient has suicidal ideation: No Patient has homicidal ideation: No - Past Medical History Cardiac Medical History: Reports: Hx Congestive Heart Failure, Hx Coronary Artery Disease, Hx DVT - right leg., Hx Heart Attack, Hx Hypercholesterolemia, Hx Hypertension, Hx Peripheral Vascular Disease, Hx Heart Murmur Pulmonary Medical History: Reports: Hx Pneumonia Denies: Hx Asthma, Hx COPD, Hx Tuberculosis Neurological Medical History: Reports: Hx Cerebrovascular Accident - Lt sided weakness, Hx Migraine, Hx Seizures Endocrine Medical History: Reports: Hx Diabetes Mellitus Type 1, Hx Diabetes Mellitus Type 2. Denies: Hx Hyperthyroidism, Hx Hypothyroidism Renal/ Medical History: Reports: Hx Kidney Stones. Denies: Hx Peritoneal Dialysis GI Medical History: Reports: Hx Gastroesophageal Reflux Disease. Denies: Hx Cirrhosis, Hx Hepatitis Musculoskeletal Medical History: Reports Hx Arthritis, Reports Hx Muscle Weakness - Left Skin Medical History: Reports Hx Eczema, Denies Hx MRSA, Reports Hx Psoriasis Psychiatric Medical History: Denies: Hx Depression, Hx Schizoaffective Disorder Infectious Medical History: Denies: Hx Hepatitis, Hx MRSA Past Surgical History: Reports: Hx Cardiac Catheterization, Hx Cardiac Surgery - VSD having four previous surgeries as a child; heart valve defect, Hx Open Heart Surgery - VSD having five previous surgeries as a child; heart valve defect, Hx Vascular Surgery - Stents in right leg, Other - 4 separate operations for ventricular septal defect as a child.. Denies: Hx Pacemaker - Immunizations Immunizations up to date: Yes Hx Diphtheria, Pertussis, Tetanus Vaccination: Yes Hx Pneumococcal Vaccination: 03/24/18 Review of Systems - Review of Systems EENT: No symptoms reported Cardiovascular: See HPI Respiratory: No symptoms reported Gastrointestinal: No symptoms reported Musculoskeletal: No symptoms reported Physical Exam - Vital signs Vitals: Pulse Ox 94 08/04/18 22:46 Notes: Vital signs reviewed by myself on the monitor. He is mildly hypertensive with blood pressures in the 158/90 range. Oxygen 94% on room air. Heart rate in the 80s. - General General appearance: Appears well In distress: None - HEENT Head: Normocephalic Pupils: PERRL - Respiratory Respiratory status: No respiratory distress Breath sounds: Rales - Cardiovascular Rhythm: Regular - Abdominal Inspection: Obese Tenderness: Nontender - Extremities General lower extremity: Other - 3+ pitting edema bilateral lower extremities - Neurological Orientation: AAOx4 Course - Re-evaluation Re-evalutation: 08/05/18 00:25 Patient presents emergency department for evaluation. I do not have a clear etiology for his abdominal pain but his EKG does look slightly different. His proBNP is elevated. He has pulmonary vascular congestion on his chest x-ray. He is allergic to Lasix. At this point we will admit the patient for medication adjustment to his primary care physician. - Vital Signs Vital signs: Temp Pulse Resp BP Pulse Ox 94 08/04/18 22:46 - Laboratory Result Diagrams: 08/04/18 22:05 08/04/18 22:05 Laboratory results interpreted by me: 08/04/18 08/04/18 08/04/18 22:05 22:05 22:05 Hgb 11.6 L Hct 35.4 L MCH 26.7 L RDW 16.5 H Sodium 136.7 L Carbon Dioxide 32 H Glucose 273 H Calcium 8.3 L ALT 14 L NT-Pro-B Natriuret Pep 4670 H - Diagnostic Test Radiology reviewed: Reports reviewed - EKG Interpretation by Me Additional EKG results interpreted by me: 08/05/18 00:26 Sinus mechanism with a rate of 84 bpm. Left axis deviation. IVCD. Incomplete right bundle branch block. T wave inversions in the anterolateral leads concerning for ischemia. These are slightly worse when compared to prior study. - Consults Leann Consulted provider: will see as inpatient Discharge - Discharge Clinical Impression: Pulmonary vascular congestion, Abdominal pain Condition: Fair Disposition: ADMITTED INPATIENT Admitting Provider: Leann Unit Admitted: IMCU Referrals: KARTHIK RICCI MD [Primary Care Provider] - Follow up as needed
[2018-08-05 02:04] LABS: INTERNATIONAL RATION (INR) 1.08; PROTHROMBIN TIME 14.5 SEC (11.4-15.4)
[2018-08-05 02:06] LABS: PARTIAL THROMBOPLASTIN TIME 31.8 SEC (23.5-35.8)
[2018-08-05 02:18] LABS: LIPASE 273.3 U/L (23-300); PHOSPHORUS 3.2 mg/dL (2.5-4.5)
[2018-08-05 03:17] LABS: CREATINE KINASE MB 0.93 ng/mL (<4.55); TROPONIN I 0.02 ng/mL
[2018-08-05 03:22] LABS: FREE T4 (FREE THYROXINE) 1.42 ng/dL (0.78-2.19)
[2018-08-05 03:33] LABS: APPEARANCE,URINE CLEAR; BILIRUBIN,URINE NEGATIVE (NEGATIVE); COLOR,URINE YELLOW; GLUCOSE, URINE NEGATIVE (NEGATIVE); KETONES,URINE NEGATIVE (NEGATIVE); LEUKOCYTE ESTERASE,URINE NEGATIVE (NEGATIVE); NITRITE,URINE NEGATIVE (NEGATIVE); PROTEIN,URINE 100 mg/dL (NEGATIVE); URINE SPECIFIC GRAVITY 1.014; UROBILINOGEN,URINE NEGATIVE mg/dL (<2.0)
[2018-08-05 03:36] LABS: THYROID STIMULATING HORMONE 1.71 uIU/mL (0.47-4.68)
[2018-08-05 03:47] LABS: URINE AMPHETAMINES SCREEN NEGATIVE; URINE BARBITURATES SCREEN NEGATIVE; URINE BENZODIAZEPINES SCREEN NEGATIVE; URINE COCAINE SCREEN NEGATIVE; URINE MARIJUANA (THC) SCREEN NEGATIVE; URINE METHADONE SCREEN NEGATIVE; URINE PHENCYCLIDINE SCREEN NEGATIVE
[2018-08-05] MEDS: ISOSORB DINIT/HYDRALAZINE HCL 20-37.5 MG TABLET PO SCH ×3 (06:28→23:50)
[2018-08-05] MEDS: CLONIDINE HCL 0.1 MG TABLET PO SCH ×3 (06:29→23:48)
[2018-08-05 08:27] LABS: CREATINE KINASE MB 0.78 ng/mL (<4.55); TROPONIN I 0.018 ng/mL
[2018-08-05] MEDS: SPIRONOLACTONE 25 MG TABLET PO SCH (10:36)
[2018-08-05] MEDS: AMLODIPINE BESYLATE 10 MG TABLET PO SCH (10:36)
[2018-08-05] MEDS: HYDROCODONE/ACETAMINOPHEN 5-325 MG TABLET PO PRN (10:36)
[2018-08-05] MEDS: METOLAZONE 5 MG TABLET PO SCH (10:37)
[2018-08-05] MEDS: CARVEDILOL 12.5 MG TABLET PO SCH ×2 (10:37→23:48)
[2018-08-05] MEDS: ENOXAPARIN SODIUM INJ 30 MG/0.3 ML DISP.SYRIN SUBCUT SCH (10:37)
[2018-08-05] MEDS: VALSARTAN 160 MG TABLET PO SCH (10:37)
[2018-08-05] MEDS: BUMETANIDE 1 MG TABLET PO SCH ×2 (10:40→17:22)
[2018-08-05 14:04] LABS: CREATINE KINASE MB 0.82 ng/mL (<4.55); TROPONIN I 0.014 ng/mL
[2018-08-05] MEDS ORDERED: CLOBETASOL PROPIONATE 0.05% OINTMENT 15 GM TP SCH (18:00)
--- NOTE | 2018-08-05 20:27 | PDOC H&P ---
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 He denies any hematuria a CAT scan of the abdomen and pelvis without contrast was obtained for kidney stone protocol, this was negative for any kidney stone, it showed a small kidney cyst. Patient stated that the Bumex diuretic is no longer effective, he wants a different diuretic Past Medical History Cardiac Medical History: Reports: Congestive Heart Failure, Coronary Artery Disease, DVT - right leg., Myocardial Infarction, Hyperlipidema, Hypertension, Peripheral Vascular Disease, Heart Murmur Pulmonary Medical History: Reports: Pneumonia Neurological Medical History: Reports: Migraine, Seizures Endocrine Medical History: Reports: Diabetes Mellitus Type 1, Diabetes Mellitus Type 2 GI Medical History: Reports: Gastroesophageal Reflux Disease Musculoskeltal Medical History: Reports: Arthritis Skin Medical History: Reports: Eczema, Psoriasis Past Surgical History Past Surgical History: Reports: Cardiac Catheterization, Vascular Surgery - Goldy nts in right leg, Other - 4 separate operations for ventricular septal defect as a child. Social History Smoking Status: Never Smoker Frequency of Alcohol Use: None Hx Recreational Drug Use: No Drugs: None Hx Prescription Drug Abuse: No Family History Family History: Arthritis, CAD, CVA, DM, Hyperlipidemia, Hypertension, Malignancy, Other Parental Family History Reviewed: Yes Children Family History Reviewed: Yes Sibling(s) Family History Reviewed.: Yes Medication/Allergy Home Medications: Amlodipine Besylate [Norvasc 10 mg Tablet] 10 mg PO DAILY 08/05/18 Apremilast [Otezla] 30 mg PO BID 08/05/18 Aspirin [Aspirin 325 mg Tablet] 325 mg PO DAILY 08/05/18 Bumetanide [Bumex 2 mg Tablet] 1 tab PO BID 08/05/18 Carvedilol [Coreg 12.5 mg Tablet] 12.5 mg PO Q12 08/05/18 Clobetasol Propionate [Temovate 0.05% Ointment 15 Gm] 1 applic TP BID 08/05/18 Clonidine HCl [Catapres 0.1 mg Tablet] 0.1 mg PO Q8 08/05/18 Hydrocodone/Acetaminophen [[place] 10-325 mg Tablet] 1 tab PO Q8HP PRN 08/05/18 Isosorb Dinit/Hydralazine HCl [Bidil 20-37.5 mg Tablet] 1 tab PO Q8 08/05/18 Methotrexate Sodium [Rheumatrex 2.5 mg Tablet] 10 mg PO WE@1000 08/05/18 Metolazone [Zaroxolyn 5 Mg Tablet] 10 mg PO DAILY 08/05/18 Sitagliptin Phos/Metformin HCl [Janumet 50-1,000 Mg Tablet] 1 each PO BIDBS 08/05/18 Spironolactone [Aldactone 25 mg Tablet] 25 mg PO DAILY 08/05/18 Valsartan [Diovan 160 mg Tablet] 160 mg PO Q12 08/05/18 Allergies/Adverse Reactions: Shellfish * [Shellfish] Allergy (Severe, Verified 07/15/18 18:28) Anaphylaxis morphine [Morphine] Allergy (Mild, Verified 07/15/18 18:28) cyclobenzaprine [From Flexeril] Allergy (Verified 07/15/18 18:28) diazepam [From Valium] Allergy (Verified 07/15/18 18:28) diphenhydramine Allergy (Verified 07/15/18 18:28) furosemide [From Lasix] Allergy (Verified 07/15/18 18:28) shellfish derived Allergy (Verified 07/15/18 18:28) Review of Systems Eyes: ABSENT: visual disturbances Ears: ABSENT: hearing changes Cardiovascular: ABSENT: chest pain, dyspnea on exertion, edema, orthropnea, palpitations Respiratory: ABSENT: cough, hemoptysis Gastrointestinal: PRESENT: abdominal pain Genitourinary: ABSENT: dysuria, hematuria Musculoskeletal: ABSENT: joint swelling Integumentary: ABSENT: rash, wounds Neurological: ABSENT: abnormal gait, abnormal speech, confusion, dizziness, fo cora weakness, syncope Psychiatric: ABSENT: anxiety, depression, homidical ideation, suicidal ideation Endocrine: ABSENT: cold intolerance, heat intolerance, menstrual abnormalities, polydipsia, polyuria Hematologic/Lymphatic: ABSENT: easy bleeding, easy bruising, lymphadenopathy Physical Exam Vital Signs: Temp Pulse Resp BP Pulse Ox 97.7 F 74 18 128/76 H 98 02/12/19 16:06 08/05/18 16:06 08/05/18 16:06 08/05/18 16:06 08/05/18 16:06 Intake & Output 08/04/18 08/05/18 08/06/18 06:59 06:59 06:59 Intake Total 355 1474 Output Total 325 2765 Balance 30 -1291 Weight 113.6 kg General appearance: PRESENT: no acute distress, well-developed, well-nourished Head exam: PRESENT: atraumatic, normocephalic Eye exam: PRESENT: conjunctiva pink, EOMI, PERRLA Ear exam: PRESENT: normal external ear exam Mouth exam: PRESENT: moist, tongue midline Neck exam: PRESENT: full ROM Respiratory exam: PRESENT: clear to auscultation bernardo Cardiovascular exam: PRESENT: RRR, +S1, +S2 Pulses: PRESENT: normal dorsalis pedis pul, +2 pedal pulses bilateral Vascular exam: PRESENT: normal capillary refill GI/Abdominal exam: PRESENT: normal bowel sounds, soft Rectal exam: PRESENT: deferred Neurological exam: PRESENT: alert, awake, oriented to person, oriented to place, oriented to time, oriented to situation, CN II-XII grossly intact Psychiatric exam: PRESENT: appropriate affect, normal mood Skin exam: PRESENT: dry, intact, warm Results Laboratory Results: 08/04/18 22:05 08/04/18 22:05 08/04/18 08/04/18 08/04/18 22:05 22:05 22:05 WBC 5.5 RBC 4.36 Hgb 11.6 L Hct 35.4 L MCV 81 MCH 26.7 L MCHC 32.9 RDW 16.5 H Plt Count 290 Seg Neutrophils % 67.2 Lymphocytes % 22.0 Monocytes % 7.7 Eosinophils % 1.5 Basophils % 1.6 Absolute Neutrophils 3.7 Absolute Lymphocytes 1.2 Absolute Monocytes 0.4 Absolute Eosinophils 0.1 Absolute Basophils 0.1 Sodium 136.7 L Potassium 3.7 Chloride 99 Carbon Dioxide 32 H Anion Gap 6 BUN 20 Creatinine 1.22 Est GFR ( Amer) > 60 Est GFR (Non-Af Amer) > 60 Glucose 273 H Calcium 8.3 L Phosphorus 3.2 Magnesium 1.5 L Total Bilirubin 0.5 AST 22 ALT 14 L Alkaline Phosphatase 84 Total Protein 6.8 Albumin 3.5 Amylase 86 Lipase 273.3 TSH Free T4 Urine Color Urine Appearance Urine pH Ur Specific [place] Urine Protein Urine Glucose (UA) Urine Ketones Urine Blood Urine Nitrite Ur Leukocyte Esterase Urine WBC (Auto) Urine RBC (Auto) 08/05/18 08/05/18 02:30 02:37 WBC RBC Hgb Hct MCV MCH MCHC RDW Plt Count Seg Neutrophils % Lymphocytes % Monocytes % Eosinophils % Basophils % Absolute Neutrophils Absolute Lymphocytes Absolute Monocytes Absolute Eosinophils Absolute Basophils Sodium Potassium Chloride Carbon Dioxide Anion Gap BUN Creatinine Est GFR ( Amer) Est GFR (Non-Af Amer) Glucose Calcium Phosphorus Magnesium Total Bilirubin AST ALT Alkaline Phosphatase Total Protein Albumin Amylase Lipase TSH 1.71 Free T4 1.42 Urine Color YELLOW Urine Appearance CLEAR Urine pH 6.0 Ur Specific [place] 1.014 Urine Protein 100 H Urine Glucose (UA) NEGATIVE Urine Ketones NEGATIVE Urine Blood NEGATIVE Urine Nitrite NEGATIVE Ur Leukocyte Esterase NEGATIVE Urine WBC (Auto) 1 Urine RBC (Auto) 0 08/04/18 08/05/18 08/05/18 22:05 02:37 02:37 Creatine Kinase 77 CK-MB (CK-2) 0.93 Troponin I 0.025 0.020 NT-Pro-B Natriuret Pep 4670 H 08/05/18 08/05/18 08/05/18 07:46 07:46 13:31 Creatine Kinase 59 67 CK-MB (CK-2) 0.78 Troponin I 0.018 NT-Pro-B Natriuret Pep 08/05/18 13:31 Creatine Kinase CK-MB (CK-2) 0.82 Troponin I 0.014 NT-Pro-B Natriuret Pep Impressions: Chest X-Ray 08/04/18 21:47 IMPRESSION: Cardiomegaly with pulmonary vascular congestion. copyright 2010 [employer]- All Rights Reserved Assessment & Plan - Diagnosis (1) Acute abdominal pain in left flank Is this a current diagnosis for this admission?: Yes Plan: Patient was admitted for evaluation of acute abdominal pain the left flank area (2) Chronic combined systolic and diastolic heart failure Is this a current diagnosis for this admission?: Yes Plan: Continue treatment
--- NOTE | 2018-08-05 21:29 | RADIOLOGY REPORT (SQ) ---
CT ABDOMEN PELVIS WITHOUT IV CONTRAST HISTORY: Renal colic. COMPARISON: 06/20/2018 TECHNIQUE: CT scan of the abdomen and pelvis without IV contrast. This exam was performed according to our departmental dose-optimization program, which includes automated exposure control, adjustment of the mA and/or kV according to patient size and/or use of iterative reconstruction technique. FINDINGS: Lung bases are clear. No pleural or pericardial effusions. There is mild cardiomegaly. The gallbladder is contracted, limiting evaluation. The liver, spleen, pancreas, and adrenal glands are normal. No obstructing urinary stones are identified. There is no hydronephrosis. A simple cyst is seen in the left kidney. The pelvic organs are also unremarkable. No small bowel obstruction. The appendix is normal. There is no evidence of diverticulitis. No intraperitoneal free fluid or free air is identified. The aorta is normal caliber. No acute osseous findings are appreciated. There is no body wall hernia. IMPRESSION: No acute abdominal or pelvic pathology.
[2018-08-06] MEDS: CLONIDINE HCL 0.1 MG TABLET PO SCH ×2 (05:41→13:40)
[2018-08-06] MEDS: ISOSORB DINIT/HYDRALAZINE HCL 20-37.5 MG TABLET PO SCH ×2 (05:59→16:06)
[2018-08-06 08:07] LABS: ABSOLUTE EOSINOPHILS # (AUTO) 0.1 10^3/uL (0.0-0.6); ABSOLUTE LYMPHOCYTES (AUTO) 0.7 10^3/uL (0.5-4.7); ABSOLUTE MONOCYTES (AUTO) 0.4 10^3/uL (0.1-1.4); BASOPHILS % (AUTO) 0.7 % (0-2); EOSINOPHILS % (AUTO) 1.1 % (0-6); HEMATOCRIT 34.1 % (37.9-51.0); HEMOGLOBIN 11.2 g/dL (13.5-17.0); LYMPHOCYTES % (AUTO) 13.3 % (13-45); MEAN CORPUSCULAR HEMOGLOBIN 26.6 pg (27.0-33.4); MEAN CORPUSCULAR HGB CONC 32.9 g/dL (32.0-36.0); MEAN CORPUSCULAR VOLUME 81 fl (80-97); MONOCYTES % (AUTO) 7.6 % (3-13); PLATELET COUNT 293 10^3/uL (150-450); RED BLOOD COUNT 4.23 10^6/uL (4.35-5.55); RED CELL DISTRIBUTION WIDTH 16.8 % (11.5-14.0); SEGMENTED NEUTROPHILS % (AUTO) 77.3 % (42-78); TOTAL CELLS COUNTED % (AUTO) 100 %; WHITE BLOOD COUNT 5.1 10^3/uL (4.0-10.5)
[2018-08-06 08:34] LABS: ALANINE AMINOTRANSFERASE 11 U/L (21-72); ALBUMIN 3.2 g/dL (3.5-5.0); ALKALINE PHOSPHATASE 80 U/L (38-126); ANION GAP 9 (5-19); ASPARTATE AMINO TRANSFERASE 14 U/L (17-59); BILIRUBIN,DIRECT 0.3 mg/dL (0.0-0.4); BILIRUBIN,TOTAL 0.6 mg/dL (0.2-1.3); BLOOD UREA NITROGEN 21 mg/dL (7-20); CALCIUM 8.5 mg/dL (8.4-10.2); CARBON DIOXIDE 34 mmol/L (22-30); CHLORIDE 92 mmol/L (98-107); GLUCOSE 281 mg/dL (75-110); POTASSIUM 3.4 mmol/L (3.6-5.0); SODIUM 135.1 mmol/L (137-145); TOTAL PROTEIN 6.3 g/dL (6.3-8.2)
[2018-08-06] MEDS: CARVEDILOL 12.5 MG TABLET PO SCH (09:09)
[2018-08-06] MEDS: VALSARTAN 160 MG TABLET PO SCH (09:09)
[2018-08-06] MEDS: METOLAZONE 5 MG TABLET PO SCH (09:11)
[2018-08-06] MEDS: SPIRONOLACTONE 25 MG TABLET PO SCH (09:11)
[2018-08-06] MEDS: AMLODIPINE BESYLATE 10 MG TABLET PO SCH (09:12)
[2018-08-06] MEDS: BUMETANIDE 1 MG TABLET PO SCH (09:12)
[2018-08-06] MEDS: ENOXAPARIN SODIUM INJ 30 MG/0.3 ML DISP.SYRIN SUBCUT SCH (09:12)
[2018-08-06] MEDS ORDERED: CLOBETASOL PROPIONATE 0.05% OINTMENT 15 GM TP SCH (10:00)
[2018-08-06 13:05] VITALS: BP 111/59
[2018-08-06] MEDS: HYDROCODONE/ACETAMINOPHEN 5-325 MG TABLET PO PRN (13:44)
--- NOTE | 2018-08-06 15:41 | PDOC DISCHARGE SUMMARY ---
General - Admit/Disc Date/PCP Admission Date/Primary Care Provider: 08/05/18 00:43 KARTHIK RICCI MD Discharge Date: 08/06/18 - Discharge Diagnosis (1) Acute abdominal pain in left flank Is this a current diagnosis for this admission?: Yes (2) Chronic combined systolic and diastolic heart failure Is this a current diagnosis for this admission?: Yes - Additional Information Discharge Diet: Cardiac, Diabetic Discharge Activity: Activity As Tolerated, Balance Activity w/Rest, Weigh Daily Prescriptions: RX: Torsemide [Demadex 20 mg Tablet] 20 mg PO DAILY #90 tablet Home Medications: RX: Amlodipine Besylate [Norvasc 10 mg Tablet] 10 mg PO DAILY 08/05/18 RX: Apremilast [Otezla] 30 mg PO BID 08/05/18 RX: Aspirin [Aspirin 325 mg Tablet] 325 mg PO DAILY 08/05/18 RX: Carvedilol [Coreg 12.5 mg Tablet] 12.5 mg PO Q12 08/05/18 RX: Clobetasol Propionate [Temovate 0.05% Ointment 15 gm] 1 applic TP BID 08/05/18 RX: Clonidine HCl [Catapres 0.1 mg Tablet] 0.1 mg PO Q8 08/05/18 RX: Hydrocodone/Acetaminophen [[place] 10-325 mg Tablet] 1 tab PO Q8HP PRN 08/05/18 RX: Isosorb Dinit/Hydralazine HCl [Bidil 20-37.5 mg Tablet] 1 tab PO Q8 08/05/18 RX: Methotrexate Sodium [Rheumatrex 2.5 mg Tablet] 10 mg PO WE@1000 08/05/18 RX: Metolazone [Zaroxolyn 5 mg Tablet] 10 mg PO DAILY 08/05/18 RX: Sitagliptin Phos/Metformin HCl [Janumet 50-1,000 mg Tablet] 1 each PO BIDBS 08/05/18 RX: Spironolactone [Aldactone 25 mg Tablet] 25 mg PO DAILY 08/05/18 RX: Valsartan [Diovan 160 mg Tablet] 160 mg PO Q12 08/05/18 RX: Torsemide [Demadex 20 mg Tablet] 20 mg PO DAILY #90 tablet 08/06/18 History of Present Illness History of Present Illness: SHARON JERONIMO is a 47 year old male, he has a history of chronic combined systolic and diastolic heart failure, plaquing psoriasis, diabetes nephropathy, he came to the emergency room for evaluation of left flank abdominal pain he stated that the pain started yesterday, he denies any chest pain or chest pressure, is concerned this could be kidney stone, he has a history of kidney stone. He denies any hematuria a CAT scan of the abdomen and pelvis without contrast was obtained for kidney stone protocol, this was negative for any kidney stone, it showed a small kidney cyst. Patient stated that the Bumex diuretic is no longer effective, he wants a different diuretic Hospital Course Hospital Course: Patient was admitted for the management of left abdominal flank pain, there was a concern for kidney stone, CT scan of the abdomen and pelvis without contrast was obtained there was no demonstrable kidney stone, a kidney cyst was found, Physical Exam Vital Signs: Temp Pulse Resp BP Pulse Ox 98.0 F 70 17 111/59 L 94 08/06/18 12:04 08/06/18 14:00 08/06/18 12:04 08/06/18 12:04 08/06/18 12:04 Intake & Output 08/05/18 08/06/18 08/07/18 06:59 06:59 06:59 Intake Total 355 2214 236 Output Total 325 5490 700 Balance 30 -9636 -238 Weight 113.6 kg 108 kg General appearance: PRESENT: no acute distress Eye exam: PRESENT: PERRLA Respiratory exam: PRESENT: clear to auscultation bernardo Cardiovascular exam: PRESENT: +S1, +S2 GI/Abdominal exam: PRESENT: soft Neurological exam: PRESENT: alert Results Laboratory Results: 08/06/18 07:25 08/06/18 07:25 08/06/18 08/06/18 07:25 07:25 WBC 5.1 RBC 4.23 L Hgb 11.2 L Hct 34.1 L MCV 81 MCH 26.6 L MCHC 32.9 RDW 16.8 H Plt Count 293 Seg Neutrophils % 77.3 Lymphocytes % 13.3 Monocytes % 7.6 Eosinophils % 1.1 Basophils % 0.7 Absolute Neutrophils 4.0 Absolute Lymphocytes 0.7 Absolute Monocytes 0.4 Absolute Eosinophils 0.1 Absolute Basophils 0.0 Sodium 135.1 L Potassium 3.4 L Chloride 92 L Carbon Dioxide 34 H Anion Gap 9 BUN 21 H Creatinine 1.43 H Est GFR ( Amer) > 60 Est GFR (Non-Af Amer) 53 L Glucose 281 H Calcium 8.5 Total Bilirubin 0.6 AST 14 L ALT 11 L Alkaline Phosphatase 80 Total Protein 6.3 Albumin 3.2 L 08/04/18 08/05/18 08/05/18 22:05 02:37 02:37 Creatine Kinase 77 CK-MB (CK-2) 0.93 Troponin I 0.025 0.020 NT-Pro-B Natriuret Pep 4670 H 08/05/18 08/05/18 08/05/18 07:46 07:46 13:31 Creatine Kinase 59 67 CK-MB (CK-2) 0.78 Troponin I 0.018 NT-Pro-B Natriuret Pep 08/05/18 13:31 Creatine Kinase CK-MB (CK-2) 0.82 Troponin I 0.014 NT-Pro-B Natriuret Pep Impressions: Chest X-Ray 08/04/18 21:47 IMPRESSION: Cardiomegaly with pulmonary vascular congestion. copyright 2011 [employer]- All Rights Reserved Abdomen/Pelvis CT 08/05/18 00:00 IMPRESSION: No acute abdominal or pelvic pathology. Qualifiers - * PATIENT BEING DISCHARGED WITH ANY OF THE FOLLOWING DIAGNOSIS: No
[2018-08-06] MEDS ORDERED: TORSEMIDE 20 MG TABLET PO ONE (16:00)
[2018-08-07] MEDS ORDERED: TORSEMIDE 20 MG TABLET PO SCH (10:00)
== END 2018-08-06 17:00 | disposition home or self-care (01) ==
LOC: ER 20:44 → INTOOBSV 08-05 00:43 → EH 08-05 00:43 → 3W 08-05 02:10
PROVIDERS: ADMIT Internal Medicine; ATTEND Internal Medicine
DX: I11.0 Hypertensive heart disease with heart failure (principal); I50.42 Chronic combined systolic (congestive) and diastolic (congestive) heart failure; R10.9 Unspecified abdominal pain; E11.21 Type 2 diabetes mellitus with diabetic nephropathy; L40.0 Psoriasis vulgaris; N28.1 Cyst of kidney, acquired; I25.10 Atherosclerotic heart disease of native coronary artery without angina pectoris; E11.51 Type 2 diabetes mellitus with diabetic peripheral angiopathy without gangrene; I69.354 Hemiplegia and hemiparesis following cerebral infarction affecting left non-dominant side; E66.9 Obesity, unspecified; I45.10 Unspecified right bundle-branch block; Z79.82 Long term (current) use of aspirin; I25.2 Old myocardial infarction; Z79.899 Other long term (current) drug therapy; Z87.442 Personal history of urinary calculi; Z86.718 Personal history of other venous thrombosis and embolism; Z95.828 Presence of other vascular implants and grafts; Z87.891 Personal history of nicotine dependence; Z87.74 Personal history of (corrected) congenital malformations of heart and circulatory system; Z88.8 Allergy status to other drugs, medicaments and biological substances
CPT/HCPCS: 99285; 96374; 36415 ×3; 87040; 87086; 84439; 82553; 82150; 82550; 83690; 83735; 84100; 84443; 85025 ×2; 85610; 85730; 80076; 80048; 80053; 81001; 84484 ×2; 80307; 83036; 83880; 71045; 74176; A9270 ×19; J3010; J3490 ×2; J1650 ×2

== ENCOUNTER 2018-09-19 17:54 | Inpatient (IN) | payer MEDICARE, MEDICAID ==
[2018-09-19] MEDS ORDERED: CLONIDINE HCL 0.2 MG TABLET PO ONE ×2 (18:52→23:40)
--- NOTE | 2018-09-19 18:52 | ER Document Report ---
ED Medical Screen (RME) - General Chief Complaint: Chest Pain Stated Complaint: CHEST PAIN Time Seen by Provider: 09/19/18 18:50 Primary Care Provider: KARTHIK RICCI MD [Primary Care Provider] - Follow up as needed Mode of Arrival: Ambulatory Information source: Patient TRAVEL OUTSIDE OF THE [place] IN LAST 30 DAYS: No - HPI Patient complains to provider of: CP, abd pain, swollen scrotum Onset: Other - pt with 3 day h/o CP, abd pain, and scrotal swelling. Has h/o chf. Has taken ASA today - Related Data Allergies/Adverse Reactions: Shellfish * [Shellfish] Allergy (Severe, Verified 07/15/18 18:28) Anaphylaxis morphine [Morphine] Allergy (Mild, Verified 07/15/18 18:28) cyclobenzaprine [From Flexeril] Allergy (Verified 07/15/18 18:28) diazepam [From Valium] Allergy (Verified 07/15/18 18:28) diphenhydramine Allergy (Verified 07/15/18 18:28) furosemide [From Lasix] Allergy (Verified 07/15/18 18:28) shellfish derived Allergy (Verified 07/15/18 18:28) Past Medical History - Social History Family history: CAD - Past Medical History Cardiac Medical History: Reports: Hx Congestive Heart Failure, Hx Coronary Artery Disease, Hx DVT - right leg., Hx Heart Attack, Hx Hypercholesterolemia, Hx Hypertension, Hx Peripheral Vascular Disease, Hx Heart Murmur Pulmonary Medical History: Reports: Hx Pneumonia Denies: Hx Asthma, Hx COPD, Hx Tuberculosis Neurological Medical History: Reports: Hx Cerebrovascular Accident - Lt sided weakness, Hx Migraine, Hx Seizures Endocrine Medical History: Reports: Hx Diabetes Mellitus Type 1, Hx Diabetes Mellitus Type 2. Denies: Hx Hyperthyroidism, Hx Hypothyroidism Renal/ Medical History: Reports: Hx Kidney Stones. Denies: Hx Peritoneal Dialysis GI Medical History: Reports: Hx Gastroesophageal Reflux Disease. Denies: Hx Cirrhosis, Hx Hepatitis Musculoskeltal Medical History: Reports Hx Arthritis, Reports Hx Muscle Weakness - Left Skin Medical History: Reports Hx Eczema, Denies Hx MRSA, Reports Hx Psoriasis Psychiatric Medical History: Denies: Hx Depression, Hx Schizoaffective Disorder Infectious Medical History: Denies: Hx Hepatitis, Hx MRSA Past Surgical History: Reports: Hx Cardiac Catheterization, Hx Cardiac Surgery - VSD having four previous surgeries as a child; heart valve defect, Hx Open Heart Surgery - VSD having five previous surgeries as a child; heart valve defect, Hx Vascular Surgery - Stents in right leg, Other - 4 separate operations for ventricular septal defect as a child.. Denies: Hx Pacemaker - Immunizations Immunizations up to date: Yes Hx Diphtheria, Pertussis, Tetanus Vaccination: Yes History of Influenza Vaccine for 03/2017 - 08/2017 Season: Yes Influenza Administration Date for 03/2017 - 08/2017 Season: 05/10/17 Physical Exam - Vital signs Vitals: Temp Pulse Resp BP Pulse Ox 98.5 F 97 18 183/131 H 97 09/19/18 18:32 09/19/18 18:32 09/19/18 18:32 09/19/18 18:32 09/19/18 18:32 Course - Vital Signs Vital signs: Temp Pulse Resp BP Pulse Ox 98.5 F 97 18 183/131 H 97 09/19/18 18:32 09/19/18 18:32 09/19/18 18:32 09/19/18 18:32 09/19/18 18:32 Doctor's Discharge - Discharge Referrals: KARTHIK RICCI MD [Primary Care Provider] - Follow up as needed
--- NOTE | 2018-09-19 19:27 | RADIOLOGY REPORT (SQ) ---
EXAM DESCRIPTION: CHEST 2 VIEWS COMPLETED DATE/TIME: 09/19/2018 7:05 pm REASON FOR STUDY: CP COMPARISON: 08/04/2018 TECHNIQUE: Frontal and lateral radiographic views of the chest acquired. NUMBER OF VIEWS: Two view. LIMITATIONS: None. FINDINGS: LUNGS AND PLEURA: No pneumothorax. No consolidation or pleural effusion. MEDIASTINUM AND HILAR STRUCTURES: Stable. HEART AND VASCULAR STRUCTURES: Similar cardiomegaly and mild increased vascular. BONES: No acute findings. HARDWARE: Sternotomy. OTHER: No other significant finding. IMPRESSION: NO ACUTE FINDINGS. TECHNICAL DOCUMENTATION: JOB ID: [id number] [employer]- All Rights Reserved Reading location - IP/workstation name: [email or web address]
[2018-09-19 19:55] LABS: ABSOLUTE BASOPHILS # (AUTO) 0.1 10^3/uL (0.0-0.2); ABSOLUTE EOSINOPHILS # (AUTO) 0.1 10^3/uL (0.0-0.6); ABSOLUTE LYMPHOCYTES (AUTO) 1.4 10^3/uL (0.5-4.7); ABSOLUTE MONOCYTES (AUTO) 0.4 10^3/uL (0.1-1.4); ABSOLUTE NEUT (AUTO) 3.6 10^3/uL (1.7-8.2); BASOPHILS % (AUTO) 1.3 % (0-2); EOSINOPHILS % (AUTO) 0.9 % (0-6); HEMATOCRIT 35.4 % (37.9-51.0); HEMOGLOBIN 11.7 g/dL (13.5-17.0); LYMPHOCYTES % (AUTO) 25.8 % (13-45); MEAN CORPUSCULAR HEMOGLOBIN 26.4 pg (27.0-33.4); MEAN CORPUSCULAR HGB CONC 33.1 g/dL (32.0-36.0); MEAN CORPUSCULAR VOLUME 80 fl (80-97); MONOCYTES % (AUTO) 6.5 % (3-13); PLATELET COUNT 326 10^3/uL (150-450); RED BLOOD COUNT 4.44 10^6/uL (4.35-5.55); RED CELL DISTRIBUTION WIDTH 17.9 % (11.5-14.0); SEGMENTED NEUTROPHILS % (AUTO) 65.5 % (42-78); TOTAL CELLS COUNTED % (AUTO) 100 %; WHITE BLOOD COUNT 5.5 10^3/uL (4.0-10.5)
[2018-09-19 20:17] LABS: APPEARANCE,URINE SLIGHTLY-CLOUDY; BILIRUBIN,URINE NEGATIVE (NEGATIVE); COLOR,URINE YELLOW; GLUCOSE, URINE >=500 mg/dL (NEGATIVE); KETONES,URINE NEGATIVE (NEGATIVE); LEUKOCYTE ESTERASE,URINE NEGATIVE (NEGATIVE); NITRITE,URINE NEGATIVE (NEGATIVE); PROTEIN,URINE >=500 mg/dL (NEGATIVE); URINE SPECIFIC GRAVITY 1.024
[2018-09-19 20:17] LABS: ALANINE AMINOTRANSFERASE 21 U/L (21-72); ALBUMIN 3.4 g/dL (3.5-5.0); ALKALINE PHOSPHATASE 100 U/L (38-126); ANION GAP 6 (5-19); ASPARTATE AMINO TRANSFERASE 19 U/L (17-59); BILIRUBIN,DIRECT 0.3 mg/dL (0.0-0.4); BILIRUBIN,TOTAL 0.8 mg/dL (0.2-1.3); BLOOD UREA NITROGEN 21 mg/dL (7-20); CALCIUM 9.3 mg/dL (8.4-10.2); CARBON DIOXIDE 28 mmol/L (22-30); CHLORIDE 99 mmol/L (98-107); CREATINE KINASE 82 U/L (55-170); GLUCOSE 268 mg/dL (75-110); POTASSIUM 3.9 mmol/L (3.6-5.0); SODIUM 132.6 mmol/L (137-145); TOTAL PROTEIN 7.3 g/dL (6.3-8.2)
[2018-09-19 20:29] LABS: CREATINE KINASE MB 0.85 ng/mL (<4.55); TROPONIN I 0.028 ng/mL
--- NOTE | 2018-09-19 20:57 | EKG REPORT ---
SEVERITY:- ABNORMAL ECG - SINUS RHYTHM PROBABLE LEFT ATRIAL ABNORMALITY LAD, CONSIDER LEFT ANTERIOR FASCICULAR BLOCK LEFT VENTRICULAR HYPERTROPHY BORDERLINE PROLONGED QT INTERVAL : Confirmed by: Loyda Fernandes MD 19-Sep-2018 20:57:03
[2018-09-19] MEDS ORDERED: BUMETANIDE INJ/PF 1 MG/4 ML SDV IV ONE (21:38)
--- NOTE | 2018-09-19 22:30 | ER Document Report ---
ED General - General Chief Complaint: Chest Pain Stated Complaint: CHEST PAIN Time Seen by Provider: 09/19/18 18:50 Mode of Arrival: Ambulatory Notes: Patient is a 48-year-old male with a past medical history of CHF after a history of VSD repair who comes in with pain in his abdominal wall, bilateral lower extremities and swelling to the affected areas. Patient describes the pain as being a throbbing, aching, constant discomfort to the affected areas. Mild to moderate in intensity. It started gradually, has been worsening since onset. Has been taking his Bumex 2.5 mg daily without improvement. Nothing worsens the symptoms. Denies dietary indiscretions. States that he also feels somewhat short of breath but denies overt orthopnea. States this feels similar to when he has required hospitalization in the past due to volume overload. Has not seen his primary care physician regarding his concerns today. Denies any chest pain, palpitations or syncope. TRAVEL OUTSIDE OF THE [place] IN LAST 30 DAYS: No - Related Data Allergies/Adverse Reactions: Shellfish * [Shellfish] Allergy (Severe, Verified 07/15/18 18:28) Anaphylaxis morphine [Morphine] Allergy (Mild, Verified 07/15/18 18:28) cyclobenzaprine [From Flexeril] Allergy (Verified 07/15/18 18:28) diazepam [From Valium] Allergy (Verified 07/15/18 18:28) diphenhydramine Allergy (Verified 07/15/18 18:28) furosemide [From Lasix] Allergy (Verified 07/15/18 18:28) shellfish derived Allergy (Verified 07/15/18 18:28) Past Medical History - General Information source: Patient - Social History Smoking Status: Never Smoker Chew tobacco use (# tins/day): No Frequency of alcohol use: Rare Drug Abuse: None Lives with: Family Family History: Arthritis, CAD, CVA, DM, Hyperlipidemia, Hypertension, Malignancy, Other Patient has suicidal ideation: No Patient has homicidal ideation: No - Past Medical History Cardiac Medical History: Reports: Hx Congestive Heart Failure, Hx Coronary Artery Disease, Hx DVT - right leg., Hx Heart Attack, Hx Hypercholesterolemia, Hx Hypertension, Hx Peripheral Vascular Disease, Hx Heart Murmur Pulmonary Medical History: Reports: Hx Pneumonia Denies: Hx Asthma, Hx COPD, Hx Tuberculosis Neurological Medical History: Reports: Hx Cerebrovascular Accident - Lt sided weakness, Hx Migraine, Hx Seizures Endocrine Medical History: Reports: Hx Diabetes Mellitus Type 1, Hx Diabetes Mellitus Type 2. Denies: Hx Hyperthyroidism, Hx Hypothyroidism Renal/ Medical History: Reports: Hx Kidney Stones. Denies: Hx Peritoneal Dialysis GI Medical History: Reports: Hx Gastroesophageal Reflux Disease. Denies: Hx Cirrhosis, Hx Hepatitis Musculoskeletal Medical History: Reports Hx Arthritis, Reports Hx Muscle Weakness - Left Skin Medical History: Reports Hx Eczema, Denies Hx MRSA, Reports Hx Psoriasis Psychiatric Medical History: Denies: Hx Depression, Hx Schizoaffective Disorder Infectious Medical History: Denies: Hx Hepatitis, Hx MRSA Past Surgical History: Reports: Hx Cardiac Catheterization, Hx Cardiac Surgery - VSD having four previous surgeries as a child; heart valve defect, Hx Open Heart Surgery - VSD having five previous surgeries as a child; heart valve defect, Hx Vascular Surgery - Stents in right leg, Other - 4 separate operations for ventricular septal defect as a child.. Denies: Hx Pacemaker - Immunizations Immunizations up to date: Yes Hx Diphtheria, Pertussis, Tetanus Vaccination: Yes Hx Pneumococcal Vaccination: 03/24/18 Review of Systems - Review of Systems Notes: Constitutional: Negative for fever. HENT: Negative for sore throat. Eyes: Negative for visual changes. Cardiovascular: Negative for chest pain. Respiratory: Negative for shortness of breath. Gastrointestinal: Positive for abdominal discomfort Genitourinary: Negative for dysuria. Musculoskeletal: Positive bilateral lower extremity pain Skin: Positive for edema of the bilateral lower extremities Neurological: Negative for headaches, weakness or numbness. 10 point ROS negative except as marked above and in HPI. Physical Exam - Vital signs Vitals: Temp Pulse Resp BP Pulse Ox 98.5 F 97 18 183/131 H 97 09/19/18 18:32 09/19/18 18:32 09/19/18 18:32 09/19/18 18:32 09/19/18 18:32 Interpretation: Hypertensive Notes: PHYSICAL EXAMINATION: GENERAL: Well-appearing, well-nourished and in no acute distress. HEAD: Atraumatic, normocephalic. EYES: Pupils equal round and reactive to light, extraocular movements intact, sclera anicteric, conjunctiva are normal. ENT: nares patent, oropharynx clear without exudates. Moist mucous membranes. NECK: Normal range of motion, supple without lymphadenopathy LUNGS: Breath sounds clear to auscultation bilaterally and equal. No wheezes rales or rhonchi. HEART: Regular rate and rhythm without murmurs ABDOMEN: Soft, edema diffusely to the abdominal wall, nontender, normoactive bowel sounds. No guarding, no rebound. No masses appreciated. EXTREMITIES: Normal range of motion, 4+ pitting edema to the bilateral lower extremities that is equal and symmetric. No cyanosis. NEUROLOGICAL: No focal neurological deficits. Moves all extremities spontaneously and on command. PSYCH: Normal mood, normal affect. SKIN: Warm, Dry, normal turgor, no rashes or lesions noted. Course - Re-evaluation Re-evalutation: 09/19/18 22:28 Patient presents with volume overload in the setting of known CHF combined systolic and diastolic failure. 4+ pitting edema in the bilateral lower extremities to mid thigh bilaterally. Tense abdominal wall consistent with edema. Chest x-ray without evidence of pulmonary edema. No hypoxia. Patient is noted to have a BNP elevated above his previous baseline. Troponin within acceptable limits. The patient has gained 7 kg since his discharge on 08/06/18 again suggestive of overt volume overload despite taking bumetanide 2.5 mg ruy y. The patient has been given bumetanide 2.5 mg IV. I have discussed with Dr. Barraza who is covering for Dr. Noriega who is agreed to admit the patient given his overt volume overload and need for IV diuresis. - Vital Signs Vital signs: Temp Pulse Resp BP Pulse Ox 97.6 F 86 24 H 167/101 H 100 09/20/18 00:10 09/20/18 02:00 09/20/18 00:10 09/20/18 00:52 09/20/18 00:10 - Laboratory Result Diagrams: 09/19/18 19:46 09/19/18 19:46 Laboratory results interpreted by me: 09/19/18 09/19/18 09/19/18 19:43 19:46 19:46 Hgb 11.7 L Hct 35.4 L MCH 26.4 L RDW 17.9 H Sodium 132.6 L BUN 21 H Glucose 268 H NT-Pro-B Natriuret Pep Albumin 3.4 L Urine Protein >=500 H Urine Glucose (UA) >=500 H Urine Urobilinogen 4.0 H 09/19/18 19:46 Hgb Hct MCH RDW Sodium BUN Glucose NT-Pro-B Natriuret Pep 5130 H Albumin Urine Protein Urine Glucose (UA) Urine Urobilinogen - Diagnostic Test Radiology reviewed: Image reviewed, Reports reviewed Radiology results interpreted by me: 09/19/18 22:29 Chest x-ray: No acute infiltrate or pneumothorax. No evidence of pulmonary edema. - EKG Interpretation by Me Additional EKG results interpreted by me: 09/19/18 22:29 Sinus rhythm, rate 92. LVH. QTC prolonged at 500. No ST changes. Discharge - Discharge Clinical Impression: Volume overload Qualifiers: Hypervolemia type: other Qualified Code(s): E87.79 - Other fluid overload CHF (congestive heart failure) Qualifiers: Heart failure type: combined systolic and diastolic Heart failure chronicity: acute on chronic Qualified Code(s): I50.43 - Acute on chronic combined systolic (congestive) and diastolic (congestive) heart failure Chest pain Qualifiers: Chest pain type: unspecified Qualified Code(s): R07.9 - Chest pain, unspecified Condition: Fair Disposition: ADMITTED INPATIENT Admitting Provider: Christi Unit Admitted: [facility]
[2018-09-20] MEDS ORDERED: CLONIDINE HCL 0.2 MG TABLET PO PRN (02:09)
[2018-09-20] MEDS ORDERED: DEXTROSE 50%-WATER SYRINGE 12.5 GM/25 ML DOSE IV PRN (02:30)
[2018-09-20] MEDS ORDERED: DEXTROSE 50%-WATER SYRINGE 25 GM/50 ML DOSE IV PRN (02:30)
[2018-09-20] MEDS ORDERED: DEXTROSE 40% GEL 15 GM TUBE PO PRN (02:30)
[2018-09-20] MEDS ORDERED: DEXTROSE 40% GEL 15 GM TUBE X 2 PO PRN (02:30)
[2018-09-20] MEDS ORDERED: GLUCAGON,HUMAN RECOMB 1 MG INJ IM PRN (02:30)
[2018-09-20] MEDS: INSULIN LISPRO 100 UNIT/ML 3 ML VIAL SUBCUT SCH ×4 (09:05→21:08)
[2018-09-20] MEDS ORDERED: METOLAZONE 10 MG PO SCH (13:30)
[2018-09-20] MEDS ORDERED: (PENDING PHARMACY ID) (Valsartan [Diovan] 320 MG) PO SCH (13:30)
[2018-09-20] MEDS ORDERED: CLONIDINE HCL 0.1 MG TABLET PO SCH (14:00)
[2018-09-20] MEDS: ASPIRIN 325 MG TABLET PO SCH (15:39)
[2018-09-20] MEDS: VALSARTAN 160 MG TABLET PO SCH (15:43)
[2018-09-20] MEDS: CARVEDILOL 12.5 MG TABLET PO SCH ×2 (15:43→21:08)
[2018-09-20] MEDS: AMLODIPINE BESYLATE 10 MG TABLET PO SCH (15:43)
[2018-09-20] MEDS: METOLAZONE 5 MG TABLET PO SCH (15:44)
[2018-09-20] MEDS: SPIRONOLACTONE 25 MG TABLET PO SCH (15:44)
[2018-09-20] MEDS: ISOSORB DINIT/HYDRALAZINE HCL 20-37.5 MG TABLET PO SCH ×2 (15:45→21:08)
[2018-09-20] MEDS: TORSEMIDE 20 MG TABLET PO SCH (15:45)
[2018-09-20] MEDS ORDERED: (PENDING PHARMACY ID) (Sitagliptin Phos/Metformin Hcl [Janumet 50-1,000 Mg Tablet] 1 TAB) PO SCH (17:00)
--- NOTE | 2018-09-20 17:23 | PDOC H&P ---
History of Present Illness Admission Date/PCP: 09/19/18 22:46 KARTHIK RICCI MD Patient complains of: Difficulty with breathing History of Present Illness: SHARON JERONIMO is a 48 year old male patient of Dr. Ricci who presented to the ED with complain of abdominal wall and lower extremities ache and pain with swelling. Patient described [ain as sharp, stabling, and throbbing in character. He reported minimal urinary output despite compliance with self administration of oral Bumex. He denied overt chest pain, orthopnea but admitted to dyspnea and exertional worsening of his shortness of breath with walking within his home. He denied any associated chest pain, palpitation, headache, dizziness, or syncope. Patient reported associated scrotal swelling and pain in his groin. His initial evaluation in the Ed was remarkable for chest X ray revealing cardiomegaly with mildly increase vascular prominence, elevated NT Pro-BNP and hyperglycemia. He responded to IV Bumex administration in the ED with self reported significant increase in urine output. His morbidities include Diabetes mellitus, Hypertension, Hyperlipidemia, Congestive Heart Failure, Coronary Artery Disease with old Myocardial infarction, PVD, Right leg DVT, GERD, Kidney stones, Stroke with left sided weakness, Migraine, Seizure disorder, Psoriasis, and Osteoarthritis. He as advised hospitalization for further evaluation and management. Past Medical History Cardiac Medical History: Reports: Congestive Heart Failure, Coronary Artery Disease, DVT - right leg., Myocardial Infarction, Hyperlipidema, Hypertension, Peripheral Vascular Disease, Heart Murmur Pulmonary Medical History: Reports: Pneumonia Denies: Asthma, Chronic Obstructive Pulmonary Disease (COPD), Tuberculosis Neurological Medical History: Reports: Migraine, Seizures Endocrine Medical History: Reports: Diabetes Mellitus Type 1, Diabetes Mellitus Type 2 Denies: Hyperthyroidism, Hypothyroidism GI Medical History: Reports: Gastroesophageal Reflux Disease Denies: Cirrhosis, Hepatitis Musculoskeltal Medical History: Reports: Arthritis Skin Medical History: Reports: Eczema, Psoriasis Psychiatric Medical History: Denies: Depression, Schizoaffective Disorder Infectious Medical History: Denies: Methicillin-Resistant Staph Aureus Past Surgical History Past Surgical History: Reports: Cardiac Catheterization, Vascular Surgery - Stents in right leg, Other - 4 separate operations for ventricular septal defect as a child. Denies: Pacemaker Social History Lives with: Family Smoking Status: Never Smoker Frequency of Alcohol Use: None Hx Recreational Drug Use: No Drugs: None Hx Prescription Drug Abuse: No - Advance Directive Resuscitation Status: Full Code Family History Family History: Arthritis, CAD, CVA, DM, Hyperlipidemia, Hypertension, Malignancy, Other Parental Family History Reviewed: Yes Children Family History Reviewed: Yes Sibling(s) Family History Reviewed.: Yes Medication/Allergy Home Medications: Amlodipine Besylate [Norvasc 10 mg Tablet] 10 mg PO DAILY 09/20/18 Apremilast [Otezla] 30 mg PO BID 09/20/18 Aspirin [Aspirin 325 mg Tablet] 325 mg PO DAILY 09/20/18 Bumetanide [Bumex 2 mg Tablet] 4 mg PO BID 09/20/18 Carvedilol [Coreg 12.5 mg Tablet] 12.5 mg PO Q12 09/20/18 Clobetasol Propionate [Temovate 0.05% Ointment 15 gm] 1 applic TOP BID 09/20/18 Clonidine HCl [Catapres 0.1 mg Tablet] 0.1 mg PO Q8 09/20/18 Hydrocodone Bit/Acetaminophen [Hydrocodon-Acetaminophn 10-325] 1 tab PO Q8HP PRN 09/20/18 Isosorb Dinit/Hydralazine HCl [Bidil 20-37.5 mg Tablet] 1 tab PO Q8 09/20/18 Methotrexate Sodium [Rheumatrex 2.5 mg Tablet] 10 mg PO WE@1000 09/20/18 Metolazone [Zaroxolyn] 10 mg PO DAILY 09/20/18 Sitagliptin Phos/Metformin HCl [Janumet 50-1,000 mg Tablet] 1 tab PO BIDBS 09/20/18 Spironolactone [Aldactone 25 mg Tablet] 25 mg PO DAILY 09/20/18 Torsemide [Demadex 20 mg Tablet] 20 mg PO DAILY 09/20/18 Valsartan [Diovan] 320 mg PO DAILY 09/20/18 Allergies/Adverse Reactions: Shellfish * [Shellfish] Allergy (Severe, Verified 07/15/18 18:28) Anaphylaxis morphine [Morphine] Allergy (Mild, Verified 07/15/18 18:28) cyclobenzaprine [From Flexeril] Allergy (Verified 07/15/18 18:28) diazepam [From Valium] Allergy (Verified 07/15/18 18:28) diphenhydramine Allergy (Verified 07/15/18 18:28) furosemide [From Lasix] Allergy (Verified 07/15/18 18:28) shellfish derived Allergy (Verified 07/15/18 18:28) Review of Systems Constitutional: ABSENT: chills, fever(s), headache(s), weight gain, weight loss Eyes: ABSENT: visual disturbances Ears: ABSENT: hearing changes Nose, Mouth, and Throat: ABSENT: as per HPI, headache(s), mouth pain, sore throat, vertigo, other Cardiovascular: PRESENT: dyspnea on exertion Respiratory: PRESENT: dyspnea Gastrointestinal: PRESENT: abdominal pain Genitourinary: PRESENT: difficulty urinating Musculoskeletal: PRESENT: joint swelling Integumentary: PRESENT: rash - related to his psoriasis and mostly on abdomial wall and lower extremities.. ABSENT: wounds Neurological: ABSENT: abnormal gait, abnormal speech, confusion, dizziness, focal weakness, syncope Psychiatric: ABSENT: anxiety, depression, homidical ideation, suicidal ideation Endocrine: ABSENT: cold intolerance, heat intolerance, polydipsia, polyuria Hematologic/Lymphatic: ABSENT: easy bleeding, easy bruising, lymphadenopathy Allergic/Immunologic: ABSENT: seasonal rhinorrhea Physical Exam Vital Signs: Temp Pulse Resp BP Pulse Ox 98.3 F 70 14 129/92 H 100 09/20/18 11:08 09/20/18 11:08 09/20/18 11:08 09/20/18 12:42 09/20/18 11:08 Intake & Output 09/19/18 09/20/18 09/21/18 06:59 06:59 06:59 Output Total 1300 Balance -1300 Weight 113.9 kg General appearance: PRESENT: obese Head exam: PRESENT: atraumatic, normocephalic Eye exam: PRESENT: conjunctiva pink, scleral icterus Ear exam: PRESENT: normal external ear exam Mouth exam: PRESENT: moist Neck exam: PRESENT: full ROM. ABSENT: carotid bruit, JVD, lymphadenopathy, thyromegaly Respiratory exam: PRESENT: clear to auscultation bernardo Cardiovascular exam: PRESENT: RRR. ABSENT: diastolic murmur, rubs, systolic murmur Vascular exam: PRESENT: pallor GI/Abdominal exam: PRESENT: normal bowel sounds, soft. ABSENT: distended, guarding, mass, organolmegaly, rebound, tenderness Rectal exam: PRESENT: deferred Gentrourinary exam: PRESENT: scrotal swelling Extremities exam: PRESENT: pedal edema, tenderness Musculoskeletal exam: PRESENT: tenderness - multiple joints and groin region Neurological exam: PRESENT: alert, awake, oriented to person, oriented to place, oriented to time, oriented to situation, CN II-XII grossly intact. ABSENT: motor sensory deficit Psychiatric exam: PRESENT: appropriate affect, normal mood. ABSENT: homicidal ideation, suicidal ideation Skin exam: PRESENT: dry, rash - psoriatic rash on extremties and abdominal wall, warm Results Laboratory Results: 09/19/18 19:46 09/19/18 19:46 09/19/18 09/19/18 09/19/18 19:43 19:46 19:46 WBC 5.5 RBC 4.44 Hgb 11.7 L Hct 35.4 L MCV 80 MCH 26.4 L MCHC 33.1 RDW 17.9 H Plt Count 326 Seg Neutrophils % 65.5 Lymphocytes % 25.8 Monocytes % 6.5 Eosinophils % 0.9 Basophils % 1.3 Absolute Neutrophils 3.6 Absolute Lymphocytes 1.4 Absolute Monocytes 0.4 Absolute Eosinophils 0.1 Absolute Basophils 0.1 Sodium 132.6 L Potassium 3.9 Chloride 99 Carbon Dioxide 28 Anion Gap 6 BUN 21 H Creatinine 1.21 Est GFR ( Amer) > 60 Est GFR (Non-Af Amer) > 60 Glucose 268 H Calcium 9.3 Total Bilirubin 0.8 AST 19 ALT 21 Alkaline Phosphatase 100 Total Protein 7.3 Albumin 3.4 L Urine Color YELLOW Urine Appearance SLIGHTLY-CLOUDY Urine pH 6.0 Ur Specific [place] 1.024 Urine Protein >=500 H Urine Glucose (UA) >=500 H Urine Ketones NEGATIVE Urine Blood NEGATIVE Urine Nitrite NEGATIVE Ur Leukocyte Esterase NEGATIVE Urine WBC (Auto) 2 Urine RBC (Auto) 1 09/19/18 09/19/18 19:46 19:46 Creatine Kinase 82 CK-MB (CK-2) 0.85 Troponin I 0.028 NT-Pro-B Natriuret Pep 5130 H Impressions: Chest X-Ray 09/19/18 18:50 IMPRESSION: NO ACUTE FINDINGS. Assessment & Plan - Diagnosis (1) Volume overload Qualifiers: Hypervolemia type: other Qualified Code(s): E87.79 - Other fluid overload Plan: Patient will receive Bumex IV therapy to enhance his urine output. He will be on fluid restriction to 1200 ml / day. (2) Dyspnea on exertion Is this a current diagnosis for this admission?: Yes Plan: Continue his preadmission medication management (3) Chronic combined systolic and diastolic heart failure Is this a current diagnosis for this admission?: Yes Plan: Continue his preadmission medication management except oral Bumex due to reported ineffectiveness. (4) Diabetes mellitus type 2 in obese Is this a current diagnosis for this admission?: Yes Plan: Continue his preadmission medication management (5) Hypertension Qualifiers: Hypertension type: essential hypertension Qualified Code(s): I10 - Essential (primary) hypertension Is this a current diagnosis for this admission?: Yes Plan: Continue his preadmission medication management (6) HLD (hyperlipidemia) Qualifiers: Hyperlipidemia type: other hyperlipidemia Is this a current diagnosis for this admission?: Yes Plan: Continue his preadmission medication management (7) Coronary artery disease Is this a current diagnosis for this admission?: Yes Plan: Continue his preadmission medication management (8) History of CVA (cerebrovascular accident) without residual deficits Is this a current diagnosis for this admission?: Yes Plan: Continue his preadmission medication management (9) S/P VSD closure Is this a current diagnosis for this admission?: Yes Plan: Continue his preadmission medication management (10) Plaque psoriasis Is this a current diagnosis for this admission?: Yes Plan: Continue his preadmission medication management Patient reported appointment with retail experience specialist next week. - Time Time Spent: 50 to 70 Minutes Medications reviewed and adjusted accordingly: Yes Anticipated discharge: Home with Homehealth Within: Other - Inpatient Certification Based on my medical assessment, after consideration of the patient's comorb idities, presenting symptoms, or acuity I expect that the services needed warrant INPATIENT care.: Yes I certify that my determination is in accordance with my understanding of Medicare's requirements for reasonable and necessary INPATIENT services [42 CFR 412.3e].: Yes Medical Necessity: Significant Comorbidiites Make Outpatient Treatment Too Risky, Need Close Monitoring Due to Risk of Patient Decompensation, Need For Continuous Telemetry Monitoring, Risk of Complication if Not Cared For in Hospital, Risk of Diagnosis Which Will Require Inpatient Eval/Care/Monitoring Post Hospital Care: D/C Internal Communications Manager Documentation - Plan Summary Plan Summary: See covering attending physician orders. Patient expressed fustratioin with his recurrent readmission and poor response on Bumex. We will look at paramedicine program for community support upon discharge.
[2018-09-20] MEDS ORDERED: OXYCODONE-ACETAMINOPHEN 5-325 MG TABLET PO PRN (17:26)
[2018-09-20] MEDS: SITAGLIPTIN PHOSPHATE 50 MG TABLET PO SCH (17:36)
[2018-09-20] MEDS: METFORMIN HCL 500 MG TABLET PO SCH (17:36)
[2018-09-20] MEDS: CLOBETASOL PROPIONATE 0.05% OINTMENT 15 GM TOP SCH (17:36)
[2018-09-20] MEDS ORDERED: (PENDING PHARMACY ID) (Apremilast [Otezla] 30 MG) PO SCH (18:00)
[2018-09-20] MEDS ORDERED: BUMETANIDE 1 MG TABLET PO SCH (18:00)
[2018-09-20] MEDS ORDERED: BUMETANIDE 4 MG PO SCH (18:00)
[2018-09-20] MEDS ORDERED: BUMETANIDE INJ/PF 1 MG/4 ML SDV ONE (22:35)
[2018-09-20] MEDS: BUMETANIDE INJ/PF 1 MG/4 ML SDV IV SCH (22:47)
[2018-09-20] MEDS: HYDROCODONE/ACETAMINOPHEN 5-325 MG TABLET PO PRN (23:06)
[2018-09-21 04:51] LABS: ABSOLUTE BASOPHILS # (AUTO) 0.1 10^3/uL (0.0-0.2); ABSOLUTE EOSINOPHILS # (AUTO) 0.1 10^3/uL (0.0-0.6); ABSOLUTE LYMPHOCYTES (AUTO) 0.8 10^3/uL (0.5-4.7); ABSOLUTE MONOCYTES (AUTO) 0.3 10^3/uL (0.1-1.4); ABSOLUTE NEUT (AUTO) 5.5 10^3/uL (1.7-8.2); BASOPHILS % (AUTO) 0.8 % (0-2); EOSINOPHILS % (AUTO) 0.8 % (0-6); HEMOGLOBIN 11.7 g/dL (13.5-17.0); LYMPHOCYTES % (AUTO) 11.6 % (13-45); MEAN CORPUSCULAR HEMOGLOBIN 26.1 pg (27.0-33.4); MEAN CORPUSCULAR HGB CONC 32.6 g/dL (32.0-36.0); MEAN CORPUSCULAR VOLUME 80 fl (80-97); MONOCYTES % (AUTO) 4.9 % (3-13); PLATELET COUNT 323 10^3/uL (150-450); SEGMENTED NEUTROPHILS % (AUTO) 81.9 % (42-78); TOTAL CELLS COUNTED % (AUTO) 100 %; WHITE BLOOD COUNT 6.8 10^3/uL (4.0-10.5)
[2018-09-21 05:26] LABS: ANION GAP 8 (5-19); BLOOD UREA NITROGEN 29 mg/dL (7-20); CALCIUM 8.9 mg/dL (8.4-10.2); CARBON DIOXIDE 31 mmol/L (22-30); CHLORIDE 96 mmol/L (98-107); GLUCOSE 273 mg/dL (75-110); POTASSIUM 3.6 mmol/L (3.6-5.0); SODIUM 135.1 mmol/L (137-145)
[2018-09-21] MEDS: ISOSORB DINIT/HYDRALAZINE HCL 20-37.5 MG TABLET PO SCH ×3 (05:58→21:09)
[2018-09-21] MEDS: METFORMIN HCL 500 MG TABLET PO SCH ×2 (08:16→17:23)
[2018-09-21] MEDS: SITAGLIPTIN PHOSPHATE 50 MG TABLET PO SCH ×2 (08:17→17:23)
[2018-09-21] MEDS: INSULIN LISPRO 100 UNIT/ML 3 ML VIAL SUBCUT SCH ×4 (08:17→23:10)
[2018-09-21] MEDS: AMLODIPINE BESYLATE 10 MG TABLET PO SCH (09:59)
[2018-09-21] MEDS: CARVEDILOL 12.5 MG TABLET PO SCH ×2 (09:59→21:09)
[2018-09-21] MEDS: ASPIRIN 325 MG TABLET PO SCH (09:59)
[2018-09-21] MEDS: SPIRONOLACTONE 25 MG TABLET PO SCH (09:59)
[2018-09-21] MEDS: METOLAZONE 5 MG TABLET PO SCH (09:59)
[2018-09-21] MEDS: VALSARTAN 160 MG TABLET PO SCH (10:00)
[2018-09-21] MEDS: TORSEMIDE 20 MG TABLET PO SCH (10:00)
[2018-09-21] MEDS: BUMETANIDE INJ/PF 1 MG/4 ML SDV IV SCH (10:01)
[2018-09-21] MEDS: CLOBETASOL PROPIONATE 0.05% OINTMENT 15 GM TOP SCH ×2 (10:02→17:26)
[2018-09-21] MEDS: HYDROCODONE/ACETAMINOPHEN 5-325 MG TABLET PO PRN (17:29)
[2018-09-22] MEDS: ISOSORB DINIT/HYDRALAZINE HCL 20-37.5 MG TABLET PO SCH ×2 (05:19→13:52)
[2018-09-22 05:44] LABS: ANION GAP 9 (5-19); BLOOD UREA NITROGEN 36 mg/dL (7-20); CARBON DIOXIDE 35 mmol/L (22-30); CHLORIDE 92 mmol/L (98-107); GLUCOSE 167 mg/dL (75-110); POTASSIUM 3.2 mmol/L (3.6-5.0); SODIUM 135.6 mmol/L (137-145)
[2018-09-22] MEDS: INSULIN LISPRO 100 UNIT/ML 3 ML VIAL SUBCUT SCH ×3 (08:34→16:45)
[2018-09-22] MEDS: METFORMIN HCL 500 MG TABLET PO SCH ×2 (08:34→16:45)
[2018-09-22] MEDS: SITAGLIPTIN PHOSPHATE 50 MG TABLET PO SCH ×2 (08:34→16:45)
[2018-09-22] MEDS: CARVEDILOL 12.5 MG TABLET PO SCH (09:50)
[2018-09-22] MEDS: AMLODIPINE BESYLATE 10 MG TABLET PO SCH (09:50)
[2018-09-22] MEDS: SPIRONOLACTONE 25 MG TABLET PO SCH (09:50)
[2018-09-22] MEDS: ASPIRIN 325 MG TABLET PO SCH (09:50)
[2018-09-22] MEDS: VALSARTAN 160 MG TABLET PO SCH (09:51)
[2018-09-22] MEDS: CLOBETASOL PROPIONATE 0.05% OINTMENT 15 GM TOP SCH ×2 (09:51→17:16)
[2018-09-22] MEDS ORDERED: BUMETANIDE INJ/PF 1 MG/4 ML SDV IV SCH (10:00)
[2018-09-22] MEDS: TORSEMIDE 20 MG TABLET PO SCH (15:53)
[2018-09-22] MEDS: METOLAZONE 5 MG TABLET PO SCH (15:53)
[2018-09-22] MEDS ORDERED: POTASSIUM CHLORIDE 10 MEQ CAPSULE.ER PO ONE (17:00)
[2018-09-22 17:18] VITALS: BP 140/83
--- NOTE | 2018-09-22 18:25 | PDOC DISCHARGE SUMMARY ---
General - Admit/Disc Date/PCP Admission Date/Primary Care Provider: 09/19/18 22:46 KARTHIK RICCI MD Discharge Date: 09/22/18 - Discharge Diagnosis (1) Acute on chronic systolic (congestive) heart failure Is this a current diagnosis for this admission?: Yes - Additional Information Resuscitation Status: Full Code Discharge Diet: Cardiac, Diabetic Discharge Activity: Activity As Tolerated, Balance Activity w/Rest, Weigh Daily Prescriptions: Sacubitril/Valsartan [Entresto 49 mg/51 mg Tablet] 1 tab PO BID #60 tablet Home Medications: RX: Amlodipine Besylate [Norvasc 10 mg Tablet] 10 mg PO DAILY 09/20/18 RX: Apremilast [Otezla] 30 mg PO BID 09/20/18 RX: Aspirin [Aspirin 325 mg Tablet] 325 mg PO DAILY 09/20/18 RX: Carvedilol [Coreg 12.5 mg Tablet] 12.5 mg PO Q12 09/20/18 RX: Clobetasol Propionate [Temovate 0.05% Ointment 15 gm] 1 applic TOP BID 09/20 RX: Clonidine HCl [Catapres 0.1 mg Tablet] 0.1 mg PO Q8 09/20/18 RX: Hydrocodone Bit/Acetaminophen [Hydrocodon-Acetaminophn 10-325] 1 tab PO Q8HP PRN 09/20/18 RX: Isosorb Dinit/Hydralazine HCl [Bidil 20-37.5 mg Tablet] 1 tab PO Q8 09/20/18 RX: Methotrexate Sodium [Rheumatrex 2.5 mg Tablet] 10 mg PO WE@1000 09/20/18 RX: Metolazone [Zaroxolyn] 10 mg PO DAILY 09/20/18 RX: Sitagliptin Phos/Metformin HCl [Janumet 50-1,000 mg Tablet] 1 tab PO BIDBS 09/20/18 RX: Spironolactone [Aldactone 25 mg Tablet] 25 mg PO DAILY 09/20/18 RX: Torsemide [Demadex 20 mg Tablet] 20 mg PO DAILY 09/20/18 RX: Valsartan [Diovan] 320 mg PO DAILY 09/20/18 RX: Valsartan [Diovan 160 mg Tablet] 320 mg PO DAILY tablet 09/22/18 Sacubitril/Valsartan [Entresto 49 mg/51 mg Tablet] 1 tab PO BID #60 tablet 09/22/18 History of Present Illness History of Present Illness: SHARON JERONIMO is a 48 year old male, patient presented to the emergency room on 09/19/18 for evaluation of difficulty breathing., He has a history of chronic systolic heart failure. Hospital Course Hospital Course: Patient was admitted for the management of acute on chronic systolic heart failure, he was managed conservatively, patient was seen today this afternoon,he is stable enough for discharge. The medication was adjusted, he was started on Entresto, the challenge regarding Entresto is because of insurance denial, hopefully insurance will pay for the medication Physical Exam Vital Signs: Temp Pulse Resp BP Pulse Ox 98.4 F 76 20 140/83 H 100 09/22/18 17:17 09/22/18 17:17 09/22/18 17:17 09/22/18 17:17 09/22/18 17:17 Intake & Output 09/21/18 09/22/18 09/23/18 06:59 06:59 06:59 Intake Total 1042 1396 300 Output Total 2400 3825 425 Balance -7718 -2429 -125 Weight 111.9 kg 109.9 kg General appearance: PRESENT: no acute distress Head exam: PRESENT: atraumatic, normocephalic Eye exam: PRESENT: conjunctiva pink, EOMI, PERRLA Ear exam: PRESENT: normal external ear exam Mouth exam: PRESENT: moist, tongue midline Respiratory exam: PRESENT: clear to auscultation bernardo Cardiovascular exam: PRESENT: RRR, +S1, +S2 Pulses: PRESENT: normal dorsalis pedis pul, +2 pedal pulses bilateral Vascular exam: PRESENT: normal capillary refill GI/Abdominal exam: PRESENT: normal bowel sounds, soft Rectal exam: PRESENT: deferred Neurological exam: PRESENT: alert, CN II-XII grossly intact Psychiatric exam: PRESENT: appropriate affect, normal mood Skin exam: PRESENT: dry, intact, warm Results Laboratory Results: 09/21/18 03:58 09/22/18 04:11 09/22/18 09/22/18 04:11 04:11 Sodium 135.6 L Potassium 3.2 L Chloride 92 L Carbon Dioxide 35 H Anion Gap 9 BUN 36 H Creatinine 1.85 H Est GFR ( Amer) 48 L Est GFR (Non-Af Amer) 39 L Glucose 167 H Calcium 9.0 Magnesium 1.5 L 09/19/18 09/19/18 19:46 19:46 Creatine Kinase 82 CK-MB (CK-2) 0.85 Troponin I 0.028 NT-Pro-B Natriuret Pep 5130 H Impressions: Chest X-Ray 09/19/18 18:50 IMPRESSION: NO ACUTE FINDINGS. Qualifiers - * PATIENT BEING DISCHARGED WITH ANY OF THE FOLLOWING DIAGNOSIS: Heart Failure VTE patient discharged on overlapping Therapy?: Yes Stroke Pt being discharged on Statins?: Yes HF Pt being discharged on ACEI for LVEF less than 40%?: Yes HF Pt being discharged on ARBS for LVEF less than 40%?: Yes HF Pt with Afib discharged with Warfarin?: Yes HF Pt discharged on evidence-based Beta Brandyn:: Yes
[2018-09-24] MEDS ORDERED: METHOTREXATE SODIUM 2.5 MG TABLET PO SCH (10:00)
== END 2018-09-22 18:00 | disposition home or self-care (01) | DRG 292 ==
LOC: ER 17:54 → EH 22:46 → 3N 23:53
PROVIDERS: ADMIT Internal Medicine; ATTEND Internal Medicine
DX: I11.0 Hypertensive heart disease with heart failure (principal); I69.354 Hemiplegia and hemiparesis following cerebral infarction affecting left non-dominant side; I50.23 Acute on chronic systolic (congestive) heart failure; E11.9 Type 2 diabetes mellitus without complications; I25.10 Atherosclerotic heart disease of native coronary artery without angina pectoris; E11.51 Type 2 diabetes mellitus with diabetic peripheral angiopathy without gangrene; K21.9 Gastro-esophageal reflux disease without esophagitis; L30.9 Dermatitis, unspecified; M19.90 Unspecified osteoarthritis, unspecified site; E66.9 Obesity, unspecified; E78.49 Other hyperlipidemia; L40.0 Psoriasis vulgaris; Z86.718 Personal history of other venous thrombosis and embolism; Z79.82 Long term (current) use of aspirin; Z79.899 Other long term (current) drug therapy; Z88.8 Allergy status to other drugs, medicaments and biological substances; Z88.6 Allergy status to analgesic agent; Z91.013 Allergy to seafood; Z82.61 Family history of arthritis; Z82.3 Family history of stroke; Z83.3 Family history of diabetes mellitus; Z82.49 Family history of ischemic heart disease and other diseases of the circulatory system
CPT/HCPCS: 36415; 71046; 80048; 80053; 81001; 82550; 82553; 82962; 83735; 83880; 84484; 85025; 93005; 93010; 96374; 99285; J1815; J3490

== ENCOUNTER 2018-09-28 03:46 | Observation (INO) | payer MEDICARE, MEDICAID ==
[2018-09-28] MEDS ORDERED: ASPIRIN 81 MG TABLET, CHEWABLE PO ONE (04:09)
[2018-09-28] MEDS ORDERED: NITROGLYCERIN 0.4 MG/TAB 25 TAB/BOTTLE SL PRN (04:28)
[2018-09-28] MEDS ORDERED: ASPIRIN 325 MG TABLET PO ONE (04:28)
--- NOTE | 2018-09-28 04:29 | ER Document Report ---
ED Cardiac - General Chief Complaint: Chest Pain Stated Complaint: CHEST PAIN Time Seen by Provider: 09/28/18 04:09 Primary Care Provider: KARTHIK RICCI MD [Primary Care Provider] - Follow up as needed Mode of Arrival: Ambulatory Information source: Patient TRAVEL OUTSIDE OF THE [place] IN LAST 30 DAYS: No - HPI Patient complains to provider of: Chest pain Notes: Patient here with complaints of chest pain and right arm pain. The patient states pain started last evening around 11:00. States that he has had previous heart attacks, and this feels like his previous heart attack. Complains of some mild shortness of breath. He has a history of congestive heart failure, CAD, hypertension, high cholesterol, diabetes, prior stroke. He also tells me he has a history of DVT. He is not currently on anticoagulants. He denies any nausea, vomiting, diarrhea. States that he was feeling like his mouth was getting watery earlier today. He denies any severe headache. No lost vision. No unilateral weakness. No abdominal pain. Pain is constant, moderate, nothing seems to make it better or worse. He does complain of some worsening shortness of breath when he lies flat. He denies any injuries. No fever or cough. No other specific complaints at this time. - Related Data Allergies/Adverse Reactions: shellfish derived Allergy (Severe, Verified 09/28/18 04:34) morphine [Morphine] Allergy (Mild, Verified 09/28/18 03:48) Shellfish * [Shellfish] Allergy (Mild, Verified 09/28/18 03:48) Anaphylaxis cyclobenzaprine [From Flexeril] Allergy (Verified 09/28/18 03:48) diazepam [From Valium] Allergy (Verified 09/28/18 03:48) diphenhydramine Allergy (Verified 09/28/18 03:48) furosemide [From Lasix] Allergy (Verified 09/28/18 03:48) Past Medical History - Social History Smoking Status: Never Smoker Family History: Arthritis, CAD, CVA, DM, Hyperlipidemia, Hypertension, Malignancy, Other - Past Medical History Cardiac Medical History: Reports: Hx Congestive Heart Failure, Hx Coronary Artery Disease, Hx DVT - right leg., Hx Heart Attack, Hx Hypercholesterolemia, Hx Hypertension, Hx Peripheral Vascular Disease, Hx Heart Murmur Pulmonary Medical History: Reports: Hx Pneumonia Denies: Hx Asthma, Hx COPD, Hx Tuberculosis Neurological Medical History: Reports: Hx Cerebrovascular Accident - Lt sided weakness, Hx Migraine, Hx Seizures Endocrine Medical History: Reports: Hx Diabetes Mellitus Type 1, Hx Diabetes Mellitus Type 2. Denies: Hx Hyperthyroidism, Hx Hypothyroidism Renal/ Medical History: Reports: Hx Kidney Stones. Denies: Hx Peritoneal Dialysis GI Medical History: Reports: Hx Gastroesophageal Reflux Disease. Denies: Hx Cirrhosis, Hx Hepatitis Musculoskeletal Medical History: Reports Hx Arthritis, Reports Hx Muscle Weakness - Left Skin Medical History: Reports Hx Eczema, Denies Hx MRSA, Reports Hx Psoriasis Psychiatric Medical History: Denies: Hx Depression, Hx Schizoaffective Disorder Infectious Medical History: Denies: Hx Hepatitis, Hx MRSA Past Surgical History: Reports: Hx Cardiac Catheterization, Hx Cardiac Surgery - VSD having four previous surgeries as a child; heart valve defect, Hx Open Heart Surgery - VSD having five previous surgeries as a child; heart valve defect, Hx Vascular Surgery - Stents in right leg, Other - 4 separate operations for ventricular septal defect as a child.. Denies: Hx Pacemaker - Immunizations Immunizations up to date: Yes Hx Diphtheria, Pertussis, Tetanus Vaccination: Yes Hx Pneumococcal Vaccination: 03/24/18 Review of Systems - Review of Systems -: Yes All other systems reviewed and negative Physical Exam - Vital signs Vitals: Temp Pulse Resp BP Pulse Ox 98.5 F 94 20 176/120 H 97 09/28/18 04:00 09/28/18 04:00 09/28/18 04:00 09/28/18 04:00 09/28/18 04:00 - Notes Notes: GENERAL: alert, cooperative, nontoxic, no distress. HEAD: normocephalic, atraumatic EYES: conjunctiva pink without discharge, no external redness or swelling. Pupils are equal, round, reactive to light. EARS: no external swelling, no external redness NOSE: atraumatic, no external swelling MOUTH/THROAT: mucous membranes moist and pink, posterior pharynx without erythema, swelling, exudate. No trismus or drooling. NECK: soft, supple, full range of motion, no meningismus. CHEST: no distress, lungs clear and equal throughout. No wheezing, rales, rhonchi. CARDIAC: regular rate and rhythm, no murmur, normal capillary refill, normal pulses. No peripheral edema noted. BACK: full range of motion, no CVA tenderness. EXTREMITIES: full range of motion of all extremities. No redness, no swelling. NEURO: alert and oriented x 3, cranial nerves II through XII are grossly intact. Upper and lower extremities are equal throughout. Normal sensation. No focal deficits, full range of motion of all extremities. normal finger to nose. NIH stroke score of 0. PYSCH: appropriate mood, affect. Patient is cooperative. SKIN: pink, warm, dry, no rash. Course - Re-evaluation Re-evalutation: 09/28/18 06:51 Patient is nontoxic-appearing with stable vitals. Patient is here with complaints of right arm pain and chest pain with some shortness of breath. St ates that this feels exactly like previous heart attacks that he has had in the past. He has a history of congestive heart failure. EKG shows no acute findings and no changes from previous EKGs. Troponin is at his baseline. BNP is at his baseline. Chest x-ray negative. Heart score is 4. Patient states that his chest pain today is exactly like previous [place] that he has had in the past. He does have a prior history of DVT. CTA was negative. Patient will be admitted to the hospital for further evaluation and management. I discussed the case with his primary care doctor who has accepted him for admission. - Vital Signs Vital signs: Temp Pulse Resp BP Pulse Ox 98.5 F 94 22 H 143/92 H 97 09/28/18 04:00 09/28/18 04:00 09/28/18 06:31 09/28/18 06:31 09/28/18 06:31 - Laboratory Result Diagrams: 09/28/18 04:12 09/28/18 04:12 Laboratory results interpreted by me: 09/28/18 09/28/18 09/28/18 04:12 04:12 04:12 Hgb 13.3 L MCH 26.4 L RDW 17.3 H Sodium 132.9 L Chloride 96 L Glucose 418 H* Alkaline Phosphatase 143 H NT-Pro-B Natriuret Pep 3200 H Total Protein 8.5 H - Diagnostic Test Radiology reviewed: Image reviewed, Reports reviewed - Chest x-ray negative, CTA negative. - EKG Interpretation by Me When compared to previous EKG there are: Other - Heart rate of 94. Left anterior fascicular block. Prolonged QT interval. No ST elevation or depression. No STEMI. Unchanged from previous EKG. Discharge - Discharge Clinical Impression: Chest pain Qualifiers: Chest pain type: unspecified Qualified Code(s): R07.9 - Chest pain, unspecified Condition: Stable Disposition: ADMITTED OBSERVATION Admitting Provider: Leann Referrals: KARTHIK RICCI MD [Primary Care Provider] - Follow up as needed
[2018-09-28 04:37] LABS: ABSOLUTE BASOPHILS # (AUTO) 0.1 10^3/uL (0.0-0.2); ABSOLUTE EOSINOPHILS # (AUTO) 0.1 10^3/uL (0.0-0.6); ABSOLUTE LYMPHOCYTES (AUTO) 1.1 10^3/uL (0.5-4.7); ABSOLUTE MONOCYTES (AUTO) 0.3 10^3/uL (0.1-1.4); BASOPHILS % (AUTO) 1.6 % (0-2); EOSINOPHILS % (AUTO) 1.4 % (0-6); HEMATOCRIT 40.6 % (37.9-51.0); HEMOGLOBIN 13.3 g/dL (13.5-17.0); LYMPHOCYTES % (AUTO) 19.6 % (13-45); MEAN CORPUSCULAR HEMOGLOBIN 26.4 pg (27.0-33.4); MEAN CORPUSCULAR HGB CONC 32.9 g/dL (32.0-36.0); MEAN CORPUSCULAR VOLUME 80 fl (80-97); MONOCYTES % (AUTO) 5.2 % (3-13); PLATELET COUNT 342 10^3/uL (150-450); RED BLOOD COUNT 5.05 10^6/uL (4.35-5.55); RED CELL DISTRIBUTION WIDTH 17.3 % (11.5-14.0); SEGMENTED NEUTROPHILS % (AUTO) 72.2 % (42-78); TOTAL CELLS COUNTED % (AUTO) 100 %; WHITE BLOOD COUNT 5.5 10^3/uL (4.0-10.5)
[2018-09-28 04:58] LABS: ALANINE AMINOTRANSFERASE 35 U/L (21-72); ALBUMIN 3.8 g/dL (3.5-5.0); ALKALINE PHOSPHATASE 143 U/L (38-126); ANION GAP 10 (5-19); ASPARTATE AMINO TRANSFERASE 45 U/L (17-59); BILIRUBIN,DIRECT 0.3 mg/dL (0.0-0.4); BILIRUBIN,TOTAL 0.5 mg/dL (0.2-1.3); BLOOD UREA NITROGEN 19 mg/dL (7-20); CALCIUM 9.3 mg/dL (8.4-10.2); CARBON DIOXIDE 27 mmol/L (22-30); CHLORIDE 96 mmol/L (98-107); CREATINE KINASE 61 U/L (55-170); POTASSIUM 3.8 mmol/L (3.6-5.0); SODIUM 132.9 mmol/L (137-145); TOTAL PROTEIN 8.5 g/dL (6.3-8.2)
[2018-09-28 05:05] LABS: GLUCOSE 418 mg/dL (75-110)
[2018-09-28 05:10] LABS: CREATINE KINASE MB 1.07 ng/mL (<4.55); TROPONIN I 0.028 ng/mL
[2018-09-28] MEDS ORDERED: NORMAL SALINE 1000 ML 500 ML IV ONE (05:16)
[2018-09-28] MEDS ORDERED: INSULIN REG, HUMAN 100 UNIT/ML 3 ML VIAL (PYX) IV ONE (05:16)
--- NOTE | 2018-09-28 05:33 | RADIOLOGY REPORT (SQ) ---
EXAM DESCRIPTION: XR CHEST 1 VIEW COMPLETED DATE/TME: 09/28/2018 04:09 CLINICAL HISTORY: cp COMPARISON: 09/19/2018 FINDINGS: Single frontal view of the chest. Cardiomegaly. Prior median sternotomy. Leads overlie the chest. No consolidation, pneumothorax, or pleural effusion. No displaced rib fractures identified. Upper abdominal soft tissues are unremarkable. IMPRESSION: 1. No acute pulmonary process identified. Cardiomegaly.
--- NOTE | 2018-09-28 06:50 | RADIOLOGY REPORT (SQ) ---
EXAM DESCRIPTION: CT CHEST ANGIOGRAPHY WITHOUT THEN WITH IV CONTRAST COMPLETED DATE/TME: 09/28/2018 05:15 CLINICAL HISTORY: 48 years Male, cp, hx of dvt Comparison: 06/19/18 Technique: IV contrast. Coronal and sagittal reformat. 3d reconstruction. This exam was performed according to our departmental dose-optimization program, which includes automated exposure control, adjustment of the mA and/or kV according to patient size and/or use of iterative reconstruction technique.[facility]: Dose Right [facility]: CareDose [facility]: Dose Right [facility]: Teradose 4D [facility]: Smart Equipboard LIMITATIONS: None Findings: No pulmonary embolus. No right ventricular strain. Clear lungs. Cardiac enlargement. Sternotomy. Inferior neck, axillae, mediastinum, lungs, airway, lymphatics, vasculature, upper abdomen, and musculoskeleton appear otherwise unremarkable. Impression: No pulmonary embolus. No acute cardiopulmonary findings. Chronic cardiac enlargement.
--- NOTE | 2018-09-28 09:42 | EKG REPORT ---
SEVERITY:- ABNORMAL ECG - SINUS RHYTHM LEFT ATRIAL ABNORMALITY LEFT ANTERIOR FASCICULAR BLOCK BORDERLINE T ABNORMALITIES, ANT-LAT LEADS PROLONGED QT INTERVAL : Confirmed by: Yoseph Yu MD 28-Sep-2018 09:42:10
[2018-09-28] MEDS ORDERED: TORSEMIDE 20 MG TABLET PO PRN (11:11)
[2018-09-28] MEDS ORDERED: HYDROCODONE/ACETAMINOPHEN 10-325 MG TABLET PO PRN (11:11)
[2018-09-28] MEDS ORDERED: METOLAZONE 5 MG TABLET PO SCH (11:15)
[2018-09-28] MEDS ORDERED: ASPIRIN 325 MG TABLET PO SCH (11:15)
[2018-09-28] MEDS ORDERED: (PENDING PHARMACY ID) (Apremilast [Otezla] 30 MG) PO SCH (11:15)
[2018-09-28] MEDS ORDERED: (PENDING PHARMACY ID) (Sitagliptin Phos/Metformin Hcl [Janumet 50-1,000 Mg Tablet] 1 TAB) PO SCH (11:15)
[2018-09-28] MEDS ORDERED: AMLODIPINE BESYLATE 10 MG TABLET PO SCH (12:00)
[2018-09-28] MEDS: CLONIDINE HCL 0.1 MG TABLET PO SCH ×2 (13:14→22:40)
[2018-09-28] MEDS: HEPARIN SOD (PORCINE) 5,000 UNIT/ML 1 ML SYRINGE SUBCUT SCH ×2 (13:15→22:39)
[2018-09-28] MEDS: ISOSORB DINIT/HYDRALAZINE HCL 20-37.5 MG TABLET PO SCH ×3 (13:42→22:40)
[2018-09-28] MEDS: CARVEDILOL 12.5 MG TABLET PO SCH ×2 (13:42→22:40)
[2018-09-28] MEDS: SACUBITRIL/VALSARTAN 49 MG/51 MG TABLET PO SCH ×2 (13:43→17:40)
[2018-09-28] MEDS ORDERED: DEXTROSE 50%-WATER SYRINGE 12.5 GM/25 ML DOSE IV PRN (17:30)
[2018-09-28] MEDS ORDERED: GLUCAGON,HUMAN RECOMB 1 MG INJ IM PRN (17:30)
[2018-09-28] MEDS ORDERED: DEXTROSE 40% GEL 15 GM TUBE X 2 PO PRN (17:30)
[2018-09-28] MEDS ORDERED: DEXTROSE 50%-WATER SYRINGE 25 GM/50 ML DOSE IV PRN (17:30)
[2018-09-28] MEDS ORDERED: DEXTROSE 40% GEL 15 GM TUBE PO PRN (17:30)
[2018-09-28] MEDS: KETOROLAC TROMETHAMINE INJ/PF 30 MG/1 ML SDV IV SCH (17:40)
[2018-09-28] MEDS ORDERED: CLOBETASOL PROPIONATE 0.05% OINTMENT 15 GM TOP SCH (18:00)
--- NOTE | 2018-09-28 19:16 | PDOC H&P ---
History of Present Illness Admission Date/PCP: 09/28/18 07:42 KARTHIK RICCI MD History of Present Illness: SHARON JERONIMO is a 48 year old male,He has a history of ischemic cardiomyopathy, he came to the emergency room last night for evaluation of right-sided chest pain CT angiogram of the chest was done, it demonstrated no pulmonary embolism. The chest pain is pleuritic in character, the pain is exacerbated with movement, and cough. Past Medical History Cardiac Medical History: Reports: Congestive Heart Failure, Coronary Artery Disease, DVT - right leg., Myocardial Infarction, Hyperlipidema, Hypertension, Peripheral Vascular Disease, Heart Murmur Pulmonary Medical History: Reports: Pneumonia Neurological Medical History: Reports: Migraine, Seizures Endocrine Medical History: Reports: Diabetes Mellitus Type 2 GI Medical History: Reports: Gastroesophageal Reflux Disease Denies: Cirrhosis, Hepatitis Musculoskeltal Medical History: Reports: Arthritis Skin Medical History: Reports: Eczema, Psoriasis Psychiatric Medical History: Denies: Depression, Schizoaffective Disorder Infectious Medical History: Denies: Methicillin-Resistant Staph Aureus Past Surgical History Past Surgical History: Reports: Cardiac Catheterization, Vascular Surgery - Stents in right leg, Other - 4 separate operations for ventricular septal defect as a child. Denies: Pacemaker Social History Smoking Status: Never Smoker Frequency of Alcohol Use: None Hx Recreational Drug Use: No Drugs: None Hx Prescription Drug Abuse: No Family History Family History: Arthritis, CAD, CVA, DM, Hyperlipidemia, Hypertension, Malignancy, Other Parental Family History Reviewed: Yes Children Family History Reviewed: Yes Sibling(s) Family History Reviewed.: Yes Medication/Allergy Home Medications: Amlodipine Besylate [Norvasc 10 mg Tablet] 10 mg PO DAILY 09/20/18 Apremilast [Otezla] 30 mg PO BID 09/20/18 Aspirin [Aspirin 325 mg Tablet] 325 mg PO DAILY 09/20/18 Carvedilol [Coreg 12.5 mg Tablet] 12.5 mg PO Q12 09/20/18 Clobetasol Propionate [Temovate 0.05% Ointment 15 gm] 1 applic TOP BID 09/20/18 Clonidine HCl [Catapres 0.1 mg Tablet] 0.1 mg PO Q8H 09/20/18 Hydrocodone Bit/Acetaminophen [Hydrocodon-Acetaminophn 10-325] 1 tab PO Q8HP PRN 09/20/18 Isosorb Dinit/Hydralazine HCl [Bidil 20-37.5 mg Tablet] 1 tab PO Q8 09/20/18 Sitagliptin Phos/Metformin HCl [Janumet 50-1,000 mg Tablet] 1 tab PO Q12 09/20/18 Spironolactone [Aldactone 25 mg Tablet] 25 mg PO Q12 09/20/18 Torsemide [Demadex 20 mg Tablet] 20 mg PO DAILYP PRN 09/20/18 Sacubitril/Valsartan [Entresto 49 mg/51 mg Tablet] 1 tab PO BID #60 tablet 07/12 Metolazone [Zaroxolyn 5 mg Tablet] 5 mg PO DAILY 09/28/18 Valsartan [Diovan 160 mg Tablet] 320 mg PO Q12 09/28/18 Allergies/Adverse Reactions: shellfish derived Allergy (Severe, Verified 09/28/18 04:34) morphine [Morphine] Allergy (Mild, Verified 09/28/18 03:48) Shellfish * [Shellfish] Allergy (Mild, Verified 09/28/18 03:48) Anaphylaxis cyclobenzaprine [From Flexeril] Allergy (Verified 09/28/18 03:48) diazepam [From Valium] Allergy (Verified 09/28/18 03:48) diphenhydramine Allergy (Verified 09/28/18 03:48) furosemide [From Lasix] Allergy (Verified 09/28/18 03:48) Review of Systems Constitutional: ABSENT: chills, fever(s), headache(s), weight gain, weight loss Eyes: ABSENT: visual disturbances Ears: ABSENT: hearing changes Cardiovascular: PRESENT: chest pain. ABSENT: dyspnea on exertion, edema, orthropnea, palpitations Respiratory: ABSENT: cough, hemoptysis Gastrointestinal: ABSENT: abdominal pain, constipation, diarrhea, hematemesis, hematochezia, nausea, vomiting Genitourinary: ABSENT: dysuria, hematuria Musculoskeletal: ABSENT: joint swelling Integumentary: ABSENT: rash, wounds Neurological: ABSENT: abnormal gait, abnormal speech, confusion, dizziness, focal weakness, syncope Psychiatric: ABSENT: anxiety, depression, homidical ideation, suicidal ideation Endocrine: ABSENT: cold intolerance, heat intolerance, menstrual abnormalities, polydipsia, polyuria Hematologic/Lymphatic: ABSENT: easy bleeding, easy bruising, lymphadenopathy Physical Exam Vital Signs: Temp Pulse Resp BP Pulse Ox 97.6 F 70 17 122/71 95 09/28/18 16:10 09/28/18 16:10 09/28/18 16:10 09/28/18 16:10 09/28/18 16:10 Intake & Output 09/27/18 09/28/18 09/29/18 06:59 06:59 06:59 Intake Total 500 Balance 500 Weight 107.2 kg 107 kg General appearance: PRESENT: no acute distress, well-developed, well-nourished Head exam: PRESENT: atraumatic, normocephalic Eye exam: PRESENT: conjunctiva pink, EOMI, PERRLA Ear exam: PRESENT: normal external ear exam Mouth exam: PRESENT: moist, tongue midline Neck exam: PRESENT: full ROM Respiratory exam: PRESENT: clear to auscultation bernardo Cardiovascular exam: PRESENT: RRR, +S1, +S2 Pulses: PRESENT: normal dorsalis pedis pul, +2 pedal pulses bilateral Vascular exam: PRESENT: normal capillary refill GI/Abdominal exam: PRESENT: normal bowel sounds, soft Rectal exam: PRESENT: deferred Neurological exam: PRESENT: alert, awake, oriented to person, oriented to place, oriented to time, oriented to situation, CN II-XII grossly intact Psychiatric exam: PRESENT: appropriate affect, normal mood Skin exam: PRESENT: dry, intact, warm Results Laboratory Results: 09/28/18 04:12 09/28/18 04:12 09/28/18 09/28/18 04:12 04:12 WBC 5.5 RBC 5.05 Hgb 13.3 L Hct 40.6 MCV 80 MCH 26.4 L MCHC 32.9 RDW 17.3 H Plt Count 342 Seg Neutrophils % 72.2 Lymphocytes % 19.6 Monocytes % 5.2 Eosinophils % 1.4 Basophils % 1.6 Absolute Neutrophils 4.0 Absolute Lymphocytes 1.1 Absolute Monocytes 0.3 Absolute Eosinophils 0.1 Absolute Basophils 0.1 Sodium 132.9 L Potassium 3.8 Chloride 96 L Carbon Dioxide 27 Anion Gap 10 BUN 19 Creatinine 1.00 Est GFR ( Amer) > 60 Est GFR (Non-Af Amer) > 60 Glucose 418 H* Calcium 9.3 Total Bilirubin 0.5 AST 45 ALT 35 Alkaline Phosphatase 143 H Total Protein 8.5 H Albumin 3.8 09/28/18 09/28/18 09/28/18 04:12 04:12 08:15 Creatine Kinase 61 CK-MB (CK-2) 1.07 Troponin I 0.028 0.022 NT-Pro-B Natriuret Pep 3200 H 09/28/18 09/28/18 09/28/18 08:15 14:35 14:35 Creatine Kinase 50 L 48 L CK-MB (CK-2) Troponin I 0.021 NT-Pro-B Natriuret Pep Impressions: Chest X-Ray 09/28/18 04:09 IMPRESSION: 1. No acute pulmonary process identified. Cardiomegaly. Assessment & Plan - Diagnosis (1) Pleurisy Is this a current diagnosis for this admission?: Yes Plan: Patient was admitted for the management of pleurisy, CT scan angiogram of the chest was negative for any acute pathology
--- NOTE | 2018-09-28 19:22 | PDOC DISCHARGE SUMMARY ---
General - Admit/Disc Date/PCP Admission Date/Primary Care Provider: 09/28/18 07:42 KARTHIK RICCI MD Discharge Date: 09/28/18 - Discharge Diagnosis (1) Pleurisy Is this a current diagnosis for this admission?: Yes - Additional Information Home Medications: Amlodipine Besylate [Norvasc 10 mg Tablet] 10 mg PO DAILY 09/20/18 Apremilast [Otezla] 30 mg PO BID 09/20/18 Aspirin [Aspirin 325 mg Tablet] 325 mg PO DAILY 09/20/18 Carvedilol [Coreg 12.5 mg Tablet] 12.5 mg PO Q12 09/20/18 Clobetasol Propionate [Temovate 0.05% Ointment 15 gm] 1 applic TOP BID 09/20/18 Clonidine HCl [Catapres 0.1 mg Tablet] 0.1 mg PO Q8H 09/20/18 Hydrocodone Bit/Acetaminophen [Hydrocodon-Acetaminophn 10-325] 1 tab PO Q8HP PRN 09/20/18 Isosorb Dinit/Hydralazine HCl [Bidil 20-37.5 mg Tablet] 1 tab PO Q8 09/20/18 Sitagliptin Phos/Metformin HCl [Janumet 50-1,000 mg Tablet] 1 tab PO Q12 09/20/18 Spironolactone [Aldactone 25 mg Tablet] 25 mg PO Q12 09/20/18 Torsemide [Demadex 20 mg Tablet] 20 mg PO DAILYP PRN 09/20/18 Sacubitril/Valsartan [Entresto 49 mg/51 mg Tablet] 1 tab PO BID #60 tablet 09/22/18 Metolazone [Zaroxolyn 5 mg Tablet] 5 mg PO DAILY 09/28/18 History of Present Illness History of Present Illness: SHARON JERONIMO is a 48 year old male,He has a history of ischemic cardiomyopathy, he came to the emergency room last night for evaluation of right-sided chest pain CT angiogram of the chest was done, it demonstrated no pulmonary embolism. The chest pain is pleuritic in character, the pain is exacerbated with movement, and cough. Hospital Course Hospital Course: Patient presented with pleuritic chest pain, he was treated with Toradol 15 mg IV every 6 hour x3 doses with improvement in his symptoms, CTA chest done was negative for any acute pathology Physical Exam Vital Signs: Temp Pulse Resp BP Pulse Ox 97.6 F 70 17 122/71 95 09/28/18 16:10 09/28/18 16:10 09/28/18 16:10 09/28/18 16:10 09/28/18 16:10 Intake & Output 09/27/18 09/28/18 09/29/18 06:59 06:59 06:59 Intake Total 500 Balance 500 Weight 107.2 kg 107 kg General appearance: PRESENT: no acute distress Head exam: PRESENT: atraumatic, normocephalic Ear exam: PRESENT: normal external ear exam Mouth exam: PRESENT: moist, tongue midline Neck exam: PRESENT: full ROM Respiratory exam: PRESENT: clear to auscultation bernardo Cardiovascular exam: PRESENT: RRR, +S1, +S2 Vascular exam: PRESENT: normal capillary refill GI/Abdominal exam: PRESENT: normal bowel sounds, soft Rectal exam: PRESENT: deferred Neurological exam: PRESENT: alert Psychiatric exam: PRESENT: appropriate affect, normal mood. ABSENT: homicidal ideation, suicidal ideation Skin exam: PRESENT: dry, intact, warm Results Laboratory Results: 09/28/18 04:12 09/28/18 04:12 09/28/18 09/28/18 04:12 04:12 WBC 5.5 RBC 5.05 Hgb 13.3 L Hct 40.6 MCV 80 MCH 26.4 L MCHC 32.9 RDW 17.3 H Plt Count 342 Seg Neutrophils % 72.2 Lymphocytes % 19.6 Monocytes % 5.2 Eosinophils % 1.4 Basophils % 1.6 Absolute Neutrophils 4.0 Absolute Lymphocytes 1.1 Absolute Monocytes 0.3 Absolute Eosinophils 0.1 Absolute Basophils 0.1 Sodium 132.9 L Potassium 3.8 Chloride 96 L Carbon Dioxide 27 Anion Gap 10 BUN 19 Creatinine 1.00 Est GFR ( Amer) > 60 Est GFR (Non-Af Amer) > 60 Glucose 418 H* Calcium 9.3 Total Bilirubin 0.5 AST 45 ALT 35 Alkaline Phosphatase 143 H Total Protein 8.5 H Albumin 3.8 09/28/18 09/28/18 09/28/18 04:12 04:12 08:15 Creatine Kinase 61 CK-MB (CK-2) 1.07 Troponin I 0.028 0.022 NT-Pro-B Natriuret Pep 3200 H 09/28/18 09/28/18 09/28/18 08:15 14:35 14:35 Creatine Kinase 50 L 48 L CK-MB (CK-2) Troponin I 0.021 NT-Pro-B Natriuret Pep Impressions: Chest X-Ray 09/28/18 04:09 IMPRESSION: 1. No acute pulmonary process identified. Cardiomegaly. Qualifiers - * PATIENT BEING DISCHARGED WITH ANY OF THE FOLLOWING DIAGNOSIS: No
[2018-09-28] MEDS ORDERED: METFORMIN HCL 500 MG TABLET PO SCH (22:00)
[2018-09-28] MEDS ORDERED: SITAGLIPTIN PHOSPHATE 50 MG TABLET PO SCH (22:00)
[2018-09-28] MEDS: INSULIN LISPRO 100 UNIT/ML 3 ML VIAL SUBCUT SCH (22:58)
[2018-09-29] MEDS: KETOROLAC TROMETHAMINE INJ/PF 30 MG/1 ML SDV IV SCH ×2 (01:14→05:51)
[2018-09-29] MEDS: HEPARIN SOD (PORCINE) 5,000 UNIT/ML 1 ML SYRINGE SUBCUT SCH (05:51)
[2018-09-29] MEDS: CLONIDINE HCL 0.1 MG TABLET PO SCH (05:52)
[2018-09-29] MEDS: ISOSORB DINIT/HYDRALAZINE HCL 20-37.5 MG TABLET PO SCH (05:52)
[2018-09-29 09:01] VITALS: BP 103/65
[2018-09-29] MEDS: INSULIN LISPRO 100 UNIT/ML 3 ML VIAL SUBCUT SCH (09:22)
== END 2018-09-29 09:39 | disposition home or self-care (01) ==
LOC: ER 03:46 → EH 07:42 → 3W 15:23
PROVIDERS: ADMIT Internal Medicine; ATTEND Internal Medicine
DX: R09.1 Pleurisy (principal); I25.5 Ischemic cardiomyopathy; I25.2 Old myocardial infarction; I25.10 Atherosclerotic heart disease of native coronary artery without angina pectoris; E11.51 Type 2 diabetes mellitus with diabetic peripheral angiopathy without gangrene; I11.0 Hypertensive heart disease with heart failure; I50.9 Heart failure, unspecified; M79.601 Pain in right arm; Z79.899 Other long term (current) drug therapy; Z79.82 Long term (current) use of aspirin; Z86.718 Personal history of other venous thrombosis and embolism; Z95.828 Presence of other vascular implants and grafts; Z82.49 Family history of ischemic heart disease and other diseases of the circulatory system; Z79.84 Long term (current) use of oral hypoglycemic drugs; Z87.74 Personal history of (corrected) congenital malformations of heart and circulatory system
CPT/HCPCS: 93005; 99285; 96372; 96360; 36415; 82553; 82962 ×2; 82550; 85025; 80053; 84484; 85379; 83880; 71045; 71275; 93010; G0378 ×3; A9270 ×13; J1644 ×2; J3490 ×3; J1885 ×2; J7030; J1815

== ENCOUNTER 2018-09-30 23:26 | Emergency (ER) | payer MEDICARE, MEDICAID ==
--- NOTE | 2018-09-30 23:58 | EKG REPORT ---
SEVERITY:- ABNORMAL ECG - SINUS RHYTHM FIRST DEGREE AV BLOCK LEFT ATRIAL ABNORMALITY LEFT ANTERIOR FASCICULAR BLOCK ABNORMAL T, CONSIDER ISCHEMIA, LATERAL LEADS : Confirmed by: Jenifer Khan 30-Sep-2018 23:58:16
--- NOTE | 2018-10-01 01:19 | ER Document Report ---
ED Medical Screen (RME) - General Chief Complaint: Urinary Problem Stated Complaint: ABDOMINAL PAIN Time Seen by Provider: 10/01/18 01:17 Primary Care Provider: KARTHIK RICCI MD [Primary Care Provider] - Follow up as needed Notes: 48-year-old male, chief complaint of abdominal swelling and pain, also reports some shortness of breath and borderline lower extremity swelling. States his symptoms have been present since he was started on entresto. Denies vomiting or fever. Denies chest pain. Reports no recent bowel movements. TRAVEL OUTSIDE OF THE [place] IN LAST 30 DAYS: No - Related Data Allergies/Adverse Reactions: shellfish derived Allergy (Severe, Verified 09/28/18 04:34) morphine [Morphine] Allergy (Mild, Verified 09/28/18 03:48) Shellfish * [Shellfish] Allergy (Mild, Verified 09/28/18 03:48) Anaphylaxis cyclobenzaprine [From Flexeril] Allergy (Verified 09/28/18 03:48) diazepam [From Valium] Allergy (Verified 09/28/18 03:48) diphenhydramine Allergy (Verified 09/28/18 03:48) furosemide [From Lasix] Allergy (Verified 09/28/18 03:48) Past Medical History - Social History Family history: CAD - Past Medical History Cardiac Medical History: Reports: Hx Congestive Heart Failure, Hx Coronary Artery Disease, Hx DVT - right leg., Hx Heart Attack, Hx Hypercholesterolemia, Hx Hypertension, Hx Peripheral Vascular Disease, Hx Heart Murmur Pulmonary Medical History: Reports: Hx Pneumonia Denies: Hx Asthma, Hx COPD, Hx Tuberculosis Neurological Medical History: Reports: Hx Cerebrovascular Accident - Lt sided weakness, Hx Migraine, Hx Seizures Endocrine Medical History: Reports: Hx Diabetes Mellitus Type 1, Hx Diabetes Mellitus Type 2. Denies: Hx Hyperthyroidism, Hx Hypothyroidism Renal/ Medical History: Reports: Hx Kidney Stones. Denies: Hx Peritoneal Dialysis GI Medical History: Reports: Hx Gastroesophageal Reflux Disease. Denies: Hx Cirrhosis, Hx Hepatitis Musculoskeltal Medical History: Reports Hx Arthritis, Reports Hx Muscle Weakness - Left Skin Medical History: Reports Hx Eczema, Denies Hx MRSA, Reports Hx Psoriasis Psychiatric Medical History: Denies: Hx Depression, Hx Schizoaffective Disorder Infectious Medical History: Denies: Hx Hepatitis, Hx MRSA Past Surgical History: Reports: Hx Cardiac Catheterization, Hx Cardiac Surgery - VSD having four previous surgeries as a child; heart valve defect, Hx Open Heart Surgery - VSD having five previous surgeries as a child; heart valve defect, Hx Vascular Surgery - Stents in right leg, Other - 4 separate operations for ventricular septal defect as a child.. Denies: Hx Pacemaker - Immunizations Immunizations up to date: Yes Hx Diphtheria, Pertussis, Tetanus Vaccination: Yes History of Influenza Vaccine for 03/2017 - 08/2017 Season: Yes Influenza Administration Date for 03/2017 - 08/2017 Season: 05/10/17 Physical Exam - Vital signs Vitals: Temp Pulse Resp BP Pulse Ox 98.5 F 89 16 190/108 H 96 09/30/18 23:45 09/30/18 23:45 09/30/18 23:45 09/30/18 23:45 09/30/18 23:45 - General General appearance: Appears well In distress: None - Abdominal Distension: Distended - There is some mild distention of the abdomen and some mild generalized tenderness. No guarding or rigidity. Unremarkable otherwise. Course - Vital Signs Vital signs: Temp Pulse Resp BP Pulse Ox 98.5 F 89 16 190/108 H 96 09/30/18 23:45 09/30/18 23:45 09/30/18 23:45 09/30/18 23:45 09/30/18 23:45 Doctor's Discharge - Discharge Referrals: KARTHIK RICCI MD [Primary Care Provider] - Follow up as needed
[2018-10-01 02:18] LABS: ABSOLUTE EOSINOPHILS # (AUTO) 0.1 10^3/uL (0.0-0.6); ABSOLUTE MONOCYTES (AUTO) 0.3 10^3/uL (0.1-1.4); ABSOLUTE NEUT (AUTO) 3.3 10^3/uL (1.7-8.2); BASOPHILS % (AUTO) 0.9 % (0-2); EOSINOPHILS % (AUTO) 1.6 % (0-6); HEMATOCRIT 36.9 % (37.9-51.0); HEMOGLOBIN 12.2 g/dL (13.5-17.0); LYMPHOCYTES % (AUTO) 20.6 % (13-45); MEAN CORPUSCULAR HEMOGLOBIN 26.7 pg (27.0-33.4); MEAN CORPUSCULAR HGB CONC 33.2 g/dL (32.0-36.0); MEAN CORPUSCULAR VOLUME 80 fl (80-97); MONOCYTES % (AUTO) 7.1 % (3-13); PLATELET COUNT 301 10^3/uL (150-450); RED BLOOD COUNT 4.59 10^6/uL (4.35-5.55); RED CELL DISTRIBUTION WIDTH 17.4 % (11.5-14.0); SEGMENTED NEUTROPHILS % (AUTO) 69.8 % (42-78); TOTAL CELLS COUNTED % (AUTO) 100 %; WHITE BLOOD COUNT 4.7 10^3/uL (4.0-10.5)
[2018-10-01 02:26] LABS: APPEARANCE,URINE CLEAR; BILIRUBIN,URINE NEGATIVE (NEGATIVE); COLOR,URINE STRAW; GLUCOSE, URINE >=500 mg/dL (NEGATIVE); KETONES,URINE NEGATIVE (NEGATIVE); LEUKOCYTE ESTERASE,URINE NEGATIVE (NEGATIVE); NITRITE,URINE NEGATIVE (NEGATIVE); PROTEIN,URINE 30 mg/dL (NEGATIVE); URINE SPECIFIC GRAVITY 1.013; UROBILINOGEN,URINE NEGATIVE mg/dL (<2.0)
[2018-10-01 02:41] LABS: ALANINE AMINOTRANSFERASE 25 U/L (21-72); ALBUMIN 3.5 g/dL (3.5-5.0); ALKALINE PHOSPHATASE 115 U/L (38-126); ANION GAP 8 (5-19); ASPARTATE AMINO TRANSFERASE 17 U/L (17-59); BILIRUBIN,DIRECT 0.3 mg/dL (0.0-0.4); BILIRUBIN,TOTAL 0.4 mg/dL (0.2-1.3); BLOOD UREA NITROGEN 25 mg/dL (7-20); CALCIUM 9.5 mg/dL (8.4-10.2); CARBON DIOXIDE 28 mmol/L (22-30); CHLORIDE 96 mmol/L (98-107); LIPASE 128.5 U/L (23-300); POTASSIUM 3.7 mmol/L (3.6-5.0); SODIUM 132.1 mmol/L (137-145); TOTAL PROTEIN 7.5 g/dL (6.3-8.2)
[2018-10-01 02:53] LABS: GLUCOSE 403 mg/dL (75-110)
[2018-10-01 02:57] LABS: TROPONIN I 0.02 ng/mL
--- NOTE | 2018-10-01 04:53 | RADIOLOGY REPORT (SQ) ---
CLINICAL HISTORY: Hematuria with abdominal pain COMPARISON: None. TECHNIQUE: CT ABDOMEN PELVIS WITHOUT IV CONTRAST on 10/01/2018 4:18 AM CDT This exam was performed according to our departmental dose-optimization program, which includes automated exposure control, adjustment of the mA and/or kV according to patient size and/or use of iterative reconstruction technique. FINDINGS: The heart is mildly enlarged. Abdomen: The liver is normal in appearance. There is no biliary dilatation. Gallbladder is decompressed. The pancreas and spleen are normal in appearance. The adrenal glands and kidneys are unremarkable. Abdominal aorta is normal in course and caliber without aneurysm. There is no free air. There is no retroperitoneal adenopathy. Pelvis: There is no bowel obstruction. Urinary bladder is unremarkable. There is no free fluid. Appendix is normal. Skeleton: There are no acute osseous findings. No suspicious bony lesions. IMPRESSION: No acute inflammatory process. No renal or ureteral calculi.
[2018-10-01] MEDS ORDERED: MAGNESIUM CITRATE 296 ML BOTTLE PO ONE (05:24)
[2018-10-01 05:46] VITALS: BP 154/72
--- NOTE | 2018-10-01 06:49 | ER Document Report ---
Entered by DILLON MENDEZ SCRIBE 10/01/18 0425 Acting as scribe for:JACOB VELEZ MD ED General - General Chief Complaint: Urinary Problem Stated Complaint: ABDOMINAL PAIN Time Seen by Provider: 10/01/18 01:17 Primary Care Provider: KARTHIK RICCI MD [Primary Care Provider] - Follow up tomorrow Mode of Arrival: Ambulatory Information source: Patient Notes: Patient is a 48 year old male with ischemic cardiomyopathy, HTN, HLD, CHF, migraines, seizures, type 2 diabetes, GERD and psoriasis presents to the emergency department complaining of right lower abdominal pain onset last night. Patient also complains of hematuria and decreased excrement saying he urinates less often and has not had a bowel movement in the last few days. Patient states his symptoms are similar to his prior kidney stones. Patient was discharged from the hospital on 09/29/2018 and was prescribed Entresto. Patient attributes the start of this medication to his symptoms. TRAVEL OUTSIDE OF THE [place] IN LAST 30 DAYS: No - Related Data Allergies/Adverse Reactions: shellfish derived Allergy (Severe, Verified 09/28/18 04:34) morphine [Morphine] Allergy (Mild, Verified 09/28/18 03:48) Shellfish * [Shellfish] Allergy (Mild, Verified 09/28/18 03:48) Anaphylaxis cyclobenzaprine [From Flexeril] Allergy (Verified 09/28/18 03:48) diazepam [From Valium] Allergy (Verified 09/28/18 03:48) diphenhydramine Allergy (Verified 09/28/18 03:48) furosemide [From Lasix] Allergy (Verified 09/28/18 03:48) Past Medical History - General Information source: Patient - Social History Smoking Status: Former Smoker Chew tobacco use (# tins/day): No Frequency of alcohol use: None Drug Abuse: None Family History: Arthritis, CAD, CVA, DM, Hyperlipidemia, Hypertension, Malignancy, Other Patient has suicidal ideation: No Patient has homicidal ideation: No - Past Medical History Cardiac Medical History: Reports: Hx Congestive Heart Failure, Hx Coronary Artery Disease, Hx DVT - right leg., Hx Heart Attack, Hx Hypercholesterolemia, Hx Hypertension, Hx Peripheral Vascular Disease, Hx Heart Murmur Pulmonary Medical History: Reports: Hx Pneumonia Neurological Medical History: Reports: Hx Cerebrovascular Accident - Lt sided weakness, Hx Migraine, Hx Seizures Endocrine Medical History: Reports: Hx Diabetes Mellitus Type 1, Hx Diabetes Mellitus Type 2 Renal/ Medical History: Reports: Hx Kidney Stones GI Medical History: Reports: Hx Gastroesophageal Reflux Disease Musculoskeletal Medical History: Reports Hx Arthritis, Reports Hx Muscle Weakn ess - Left Skin Medical History: Reports Hx Eczema, Reports Hx Psoriasis Past Surgical History: Reports: Hx Cardiac Catheterization, Hx Cardiac Surgery - VSD having four previous surgeries as a child; heart valve defect, Hx Open Heart Surgery - VSD having five previous surgeries as a child; heart valve defect, Hx Vascular Surgery - Stents in right leg, Other - 4 separate operations for ventricular septal defect as a child. - Immunizations Immunizations up to date: Yes Hx Diphtheria, Pertussis, Tetanus Vaccination: Yes Hx Pneumococcal Vaccination: 03/24/18 Review of Systems - Review of Systems Constitutional: No symptoms reported EENT: No symptoms reported Cardiovascular: No symptoms reported Respiratory: No symptoms reported Gastrointestinal: See HPI Genitourinary: See HPI Male Genitourinary: No symptoms reported Musculoskeletal: See HPI Skin: No symptoms reported Hematologic/Lymphatic: No symptoms reported Neurological/Psychological: No symptoms reported -: Yes All other systems reviewed and negative Physical Exam - Vital signs Vitals: Temp Pulse Resp BP Pulse Ox 98.5 F 89 16 190/108 H 96 09/30/18 23:45 09/30/18 23:45 09/30/18 23:45 09/30/18 23:45 09/30/18 23:45 - Notes Notes: GENERAL: Initially sleeping, snoring loudly. Becomes alert, interacts well. No acute distress. HEAD: Normocephalic, atraumatic. EYES: Pupils equal, round, and reactive to light. Extraocular movements intact. ENT: Oral mucosa moist, tongue midline. NECK: Full range of motion. Supple. Trachea midline. LUNGS: Clear to auscultation bilaterally, no wheezes, rales, or rhonchi. No resp iratory distress. HEART: Regular rate and rhythm. No murmurs, gallops, or rubs. ABDOMEN: Soft, obese, diffuse tenderness to mid and lower abdomen. Non- distended. Bowel sounds present in all 4 quadrants. No guarding, rigidity, or rebound. EXTREMITIES: Moves all 4 extremities spontaneously. NEUROLOGICAL: Alert and oriented x3. Normal speech. PSYCH: Normal affect, normal mood. SKIN: Warm, dry, normal turgor. Plaque psoriasis diffusely across abdomen. Course - Vital Signs Vital signs: Temp Pulse Resp BP Pulse Ox 98.5 F 89 16 190/108 H 96 09/30/18 23:45 09/30/18 23:45 09/30/18 23:45 09/30/18 23:45 09/30/18 23:45 - Laboratory Result Diagrams: 10/01/18 02:05 10/01/18 02:05 Laboratory results interpreted by me: 10/01/18 10/01/18 10/01/18 02:05 02:05 02:05 Hgb 12.2 L Hct 36.9 L MCH 26.7 L RDW 17.4 H Sodium 132.1 L Chloride 96 L BUN 25 H Creatinine 1.31 H Est GFR (Non-Af Amer) 59 L Glucose 403 H* NT-Pro-B Natriuret Pep 1050 H Urine Protein Urine Glucose (UA) 10/01/18 02:05 Hgb Hct MCH RDW Sodium Chloride BUN Creatinine Est GFR (Non-Af Amer) Glucose NT-Pro-B Natriuret Pep Urine Protein 30 H Urine Glucose (UA) >=500 H - Diagnostic Test Radiology reviewed: Image reviewed, Reports reviewed - CT scan of the abdomen pelvis without contrast does not show any acute abnormalities. There is no comment by the radiologist about the amount of stool in the colon, but there does appear to be a large amount of stool in the right colon. Discharge - Discharge Clinical Impression: Poorly controlled diabetes mellitus, Poorly-controlled hypertension Abdominal pain Qualifiers: Abdominal location: lower abdomen, unspecified Qualified Code(s): R10.30 - Lower abdominal pain, unspecified Constipation Qualifiers: Constipation type: unspecified constipation type Qualified Code(s): K59.00 - Constipation, unspecified Condition: Stable Disposition: HOME, SELF-CARE Additional Instructions: Abdominal Pain: There are many causes of abdominal pain. Pain can mean a serious problem requiring surgery (such as appendicitis). It can also be an innocent problem that goes away on its own (such as a viral infection). Often, time must pass to determine the cause of pain. The physician does not feel that hospitalization is necessary, at present. Things may change within the next 24 hours. Call the doctor or come back for re- examination if any problems occur, such as: (1) Pain that becomes more severe, steady, or becomes concentrated in one specific area. Also, pain that is more severe with movement or coughing. (2) Vomiting that persists or becomes more frequent. (3) Blood in the vomitus, urine, or bowel movements. Blood in the stool may have a tarry or black appearance. (4) Shaking chills or fever greater than 100 degrees F. (5) The abdomen becomes more distended or swollen. (6) Bowel movements cease. (7) Failure to improve as expected. Constipation: Constipation is a common problem. It is especially likely as you get older. Constipation is a common cause of abdominal pain, but sometimes causes no symptoms at all. Causes of constipation include certain medications, dehydration, diets, inactivity, and low-fiber intake. Rarely, it can be a symptom of underlying disease. The physician has evaluated you for this. Avoid constipation by eating a diet high in fiber, fruits, and vegetables. Drink plenty of liquids. Get regular exercise. If possible, avoid constipating medicines like narcotic pain medication. Some vitamin tablets can cause constipation. Stool softeners may be needed for difficult cases. An excellent stool softener is Konsyl which is available at [employer], and [employer] drug [employer]. Just add a teaspoon to a glass of pineapple or orange juice daily or twice a day if needed. Laxatives are useful for occasional constipation. You should use them only when necessary. Too-frequent use can make your bowels dependent on them. Some over the counter laxatives available without prescription are: Milk of Magnesia, 1-2 tablespoons twice a day Dulcolax, 5 mg pill or 10 mg suppository. Citrate of Magnesia, 4-5 ounces a day for a day or two For acute constipation, Fleet's Enemas and Dulcolax suppositories are helpful. 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 Your bowel may become dependant on them. You do not need to have a bowel movement every day. Many people do fine with a bowel movement every three or four days. You should call your doctor or return for re-evaluation if you pass blood in the stool, or if you develop fever or increasing abdominal pain. Your lab work was unremarkable other than elevated blood sugars and being a little dehydrated. Your CT scan did not show any acute process other than a lot of stool in your colon. There is no clear explanation for your abdominal pain other than constipation at this time. You were given a bottle of magnesium citrate to drink, you can drink that here or at home. Magnesium citrate should help get your bowels moving in the next 1-2 days. You should drink plenty of water, but be very careful not to consume much sodium in your diet. Your blood sugar was quite high today, and your blood pressure was elevated. These appear to be chronic poorly controlled problems. Follow-up with Dr. Ricci in the next 1-2 days to recheck your blood pressure and your blood sugars. RETURN TO THE EMERGENCY ROOM IF ANY NEW OR WORSENING SYMPTOMS. Referrals: KARTHIK RICCI MD [Primary Care Provider] - Follow up tomorrow Candi Attestation: 10/01/18 04:37 I personally performed the services described in the documentation, reviewed and edited the documentation which was dictated to the scribe in my presence, and it accurately records my words and actions. I personally performed the services described in the documentation, reviewed and edited the documentation which was dictated to the scribe in my presence, and it accurately records my words and actions.
== END 2018-10-01 06:17 | disposition home or self-care (01) ==
LOC: ER 23:26
DX: R10.30 Lower abdominal pain, unspecified (principal); K59.00 Constipation, unspecified; E11.9 Type 2 diabetes mellitus without complications; E66.9 Obesity, unspecified; I11.0 Hypertensive heart disease with heart failure; I50.9 Heart failure, unspecified; E78.00 Pure hypercholesterolemia, unspecified; I69.954 Hemiplegia and hemiparesis following unspecified cerebrovascular disease affecting left non-dominant side; I25.2 Old myocardial infarction; Z87.442 Personal history of urinary calculi
CPT/HCPCS: 93005; 99284; 36415; 83690; 85025; 80053; 81001; 84484; 83880; 74176; 93010; J3490

== ENCOUNTER 2018-10-12 15:58 | Inpatient (IN) | payer MEDICARE, MEDICAID ==
--- NOTE | 2018-10-12 16:47 | ER Document Report ---
ED Medical Screen (RME) - General Chief Complaint: Chest Congestion Stated Complaint: COUGH,SHORTNESS OF BREATH,CHEST PAIN Time Seen by Provider: 10/12/18 16:41 Primary Care Provider: KARTHIK RICCI MD [Primary Care Provider] - Follow up as needed Mode of Arrival: Ambulatory Information source: Patient Notes: Patient presents complaining of cough with shortness of breath for the past week. Patient does report chest pain only with coughing. Patient states he has had a fever of 102 yesterday. Patient does report some fluid retention. hx: Hypertension, CHF, CT, CVA I have greeted and performed a rapid initial assessment of this patient. A comprehensive ED assessment and evaluation of the patient, analysis of test results and completion of the medical decision making process will be conducted by additional ED providers. TRAVEL OUTSIDE OF THE [place] IN LAST 30 DAYS: No - Related Data Allergies/Adverse Reactions: shellfish derived Allergy (Severe, Verified 10/12/18 16:00) morphine [Morphine] Allergy (Mild, Verified 10/12/18 16:00) Shellfish * [Shellfish] Allergy (Mild, Verified 10/12/18 16:00) Anaphylaxis cyclobenzaprine [From Flexeril] Allergy (Verified 10/12/18 16:00) diazepam [From Valium] Allergy (Verified 10/12/18 16:00) diphenhydramine Allergy (Verified 10/12/18 16:00) furosemide [From Lasix] Allergy (Verified 10/12/18 16:00) Past Medical History - Social History Chew tobacco use (# tins/day): No Frequency of alcohol use: None Drug Abuse: None Family history: CAD - Past Medical History Cardiac Medical History: Reports: Hx Congestive Heart Failure, Hx Coronary Artery Disease, Hx DVT - right leg., Hx Heart Attack, Hx Hypercholesterolemia, Hx Hypertension, Hx Peripheral Vascular Disease, Hx Heart Murmur Pulmonary Medical History: Reports: Hx Pneumonia Denies: Hx Asthma, Hx COPD, Hx Tuberculosis Neurological Medical History: Reports: Hx Cerebrovascular Accident - Lt sided weakness, Hx Migraine, Hx Seizures Endocrine Medical History: Reports: Hx Diabetes Mellitus Type 1, Hx Diabetes Mellitus Type 2. Denies: Hx Hyperthyroidism, Hx Hypothyroidism Renal/ Medical History: Reports: Hx Kidney Stones. Denies: Hx Peritoneal Dialysis GI Medical History: Reports: Hx Gastroesophageal Reflux Disease. Denies: Hx Cirrhosis, Hx Hepatitis Musculoskeltal Medical History: Reports Hx Arthritis, Reports Hx Muscle Weakness - Left Skin Medical History: Reports Hx Eczema, Denies Hx MRSA, Reports Hx Psoriasis Psychiatric Medical History: Denies: Hx Depression, Hx Schizoaffective Disorder Infectious Medical History: Denies: Hx Hepatitis, Hx MRSA Past Surgical History: Reports: Hx Cardiac Catheterization, Hx Cardiac Surgery - VSD having four previous surgeries as a child; heart valve defect, Hx Open Heart Surgery - VSD having five previous surgeries as a child; heart valve defect, Hx Vascular Surgery - Stents in right leg, Other - 4 separate operations for ventricular septal defect as a child.. Denies: Hx Pacemaker - Immunizations Immunizations up to date: Yes Hx Diphtheria, Pertussis, Tetanus Vaccination: Yes History of Influenza Vaccine for 03/2017 - 08/2017 Season: Yes Influenza Administration Date for 03/2017 - 08/2017 Season: 05/10/17 Physical Exam - Vital signs Vitals: Temp Pulse Resp BP Pulse Ox 99.2 F 102 H 20 189/107 H 96 10/12/18 16:06 10/12/18 16:06 10/12/18 16:06 10/12/18 16:06 10/12/18 16:06 - Respiratory Respiratory status: No respiratory distress. No: Tachypnea Chest status: Pain with cough Breath sounds: Nonproductive cough Course - Vital Signs Vital signs: Temp Pulse Resp BP Pulse Ox 99.2 F 102 H 20 189/107 H 96 10/12/18 16:06 10/12/18 16:06 10/12/18 16:06 10/12/18 16:06 10/12/18 16:06 Doctor's Discharge - Discharge Referrals: KARTHIK RICCI MD [Primary Care Provider] - Follow up as needed
[2018-10-12 17:43] LABS: APPEARANCE,URINE SLIGHTLY-CLOUDY; BILIRUBIN,URINE NEGATIVE (NEGATIVE); COLOR,URINE YELLOW; GLUCOSE, URINE 150 mg/dL (NEGATIVE); KETONES,URINE NEGATIVE (NEGATIVE); LEUKOCYTE ESTERASE,URINE NEGATIVE (NEGATIVE); NITRITE,URINE NEGATIVE (NEGATIVE); PROTEIN,URINE >=500 mg/dL (NEGATIVE); URINE SPECIFIC GRAVITY 1.026; UROBILINOGEN,URINE NEGATIVE mg/dL (<2.0)
[2018-10-12 18:00] LABS: ABSOLUTE EOSINOPHILS # (AUTO) 0.1 10^3/uL (0.0-0.6); ABSOLUTE LYMPHOCYTES (AUTO) 0.8 10^3/uL (0.5-4.7); ABSOLUTE MONOCYTES (AUTO) 0.3 10^3/uL (0.1-1.4); ABSOLUTE NEUT (AUTO) 3.4 10^3/uL (1.7-8.2); BASOPHILS % (AUTO) 0.7 % (0-2); EOSINOPHILS % (AUTO) 2.1 % (0-6); HEMATOCRIT 36.5 % (37.9-51.0); HEMOGLOBIN 12.1 g/dL (13.5-17.0); LYMPHOCYTES % (AUTO) 17.9 % (13-45); MEAN CORPUSCULAR HEMOGLOBIN 26.6 pg (27.0-33.4); MEAN CORPUSCULAR HGB CONC 33.1 g/dL (32.0-36.0); MEAN CORPUSCULAR VOLUME 80 fl (80-97); MONOCYTES % (AUTO) 7.4 % (3-13); PLATELET COUNT 260 10^3/uL (150-450); RED BLOOD COUNT 4.55 10^6/uL (4.35-5.55); RED CELL DISTRIBUTION WIDTH 17.1 % (11.5-14.0); SEGMENTED NEUTROPHILS % (AUTO) 71.9 % (42-78); TOTAL CELLS COUNTED % (AUTO) 100 %; WHITE BLOOD COUNT 4.7 10^3/uL (4.0-10.5)
--- NOTE | 2018-10-12 18:05 | RADIOLOGY REPORT (SQ) ---
EXAM DESCRIPTION: CHEST 2 VIEWS COMPLETED DATE/TIME: 10/12/2018 5:53 pm REASON FOR STUDY: fever, cough COMPARISON: 09/28/2018 EXAM PARAMETERS: NUMBER OF VIEWS: two views TECHNIQUE: Digital Frontal and Lateral radiographic views of the chest acquired. RADIATION DOSE: NA LIMITATIONS: none FINDINGS: LUNGS AND PLEURA: Patchy opacities in the right lung base and to a lesser extent within th e left lung base. There is cephalization of the pulmonary vasculature as well. There is an approxim ately 2 cm rounded density in the left lung base in the lateral costophrenic sulcus that was not pres ent on prior examination. MEDIASTINUM AND HILAR STRUCTURES: No masses or contour abnormalities. HEART AND VASCULAR STRUCTURES: Stable cardiomegaly BONES: No acute findings. HARDWARE: Stable appearance of the sternotomy wires OTHER: No other significant finding. IMPRESSION: 1. Constellation of findings consistent with congestive heart failure. 2. 2 cm rounded density in the left lung base, not present on prior examination. 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 Recommend clinical correlation. TECHNICAL DOCUMENTATION: JOB ID: [id number] [employer]- All Rights Reserved Reading location - IP/workstation name: [email or web address]
[2018-10-12 18:17] LABS: ALANINE AMINOTRANSFERASE 20 U/L (21-72); ALBUMIN 3.6 g/dL (3.5-5.0); ALKALINE PHOSPHATASE 117 U/L (38-126); ANION GAP 8 (5-19); ASPARTATE AMINO TRANSFERASE 21 U/L (17-59); BILIRUBIN,DIRECT 0.3 mg/dL (0.0-0.4); BILIRUBIN,TOTAL 0.4 mg/dL (0.2-1.3); BLOOD UREA NITROGEN 12 mg/dL (7-20); CALCIUM 8.9 mg/dL (8.4-10.2); CARBON DIOXIDE 30 mmol/L (22-30); CHLORIDE 96 mmol/L (98-107); GLUCOSE 216 mg/dL (75-110); POTASSIUM 3.7 mmol/L (3.6-5.0); SODIUM 134.3 mmol/L (137-145); TOTAL PROTEIN 8.1 g/dL (6.3-8.2)
[2018-10-12 18:32] LABS: TROPONIN I 0.037 ng/mL
[2018-10-12] MEDS ORDERED: ASPIRIN 325 MG TABLET PO ONE (19:46)
[2018-10-12] MEDS ORDERED: BUMETANIDE INJ/PF 1 MG/4 ML SDV IV ONE (19:47)
--- NOTE | 2018-10-12 19:53 | ER Document Report ---
Entered by MAKENNA LOZA SCRIBE 10/12/181940 Acting as scribe for:MARNI DICKEY DO ED Respiratory Problem - General Chief Complaint: Chest Congestion Stated Complaint: COUGH,SHORTNESS OF BREATH,CHEST PAIN Time Seen by Provider: 10/12/18 16:41 Mode of Arrival: Ambulatory Information source: Patient Notes: 48-year-old male with CHF and VSD that has required multiple surgeries presents to the emergency department today with complaints of a "cold" for x1 week. Meng almanzar states that he has had a productive cough with greenish/yellow sputum along with associated shortness of breath. Patient states he has had a constant chest pain that is exacerbated with deep breathing. Patient states his shortness of breath is exacerbated with lying supine. Patient has also had intermittent headaches, nasal congestion, throat pain, and leg swelling. TRAVEL OUTSIDE OF THE [place] IN LAST 30 DAYS: No - Related Data Allergies/Adverse Reactions: shellfish derived Allergy (Severe, Verified 10/12/18 23:55) morphine [Morphine] Allergy (Mild, Verified 10/12/18 23:55) Shellfish * [Shellfish] Allergy (Mild, Verified 10/12/18 23:55) Anaphylaxis cyclobenzaprine [From Flexeril] Allergy (Verified 10/12/18 23:55) diazepam [From Valium] Allergy (Verified 10/12/18 23:55) diphenhydramine Allergy (Verified 10/12/18 23:55) furosemide [From Lasix] Allergy (Verified 10/12/18 23:55) Past Medical History - General Information source: Patient, [facility] Records - Social History Smoking Status: Never Smoker Cigarette use (# per day): No Chew tobacco use (# tins/day): No Frequency of alcohol use: None Drug Abuse: None Lives with: Family Family History: Arthritis, CAD, CVA, DM, Hyperlipidemia, Hypertension, Malignancy, Other Patient has suicidal ideation: No Patient has homicidal ideation: No - Past Medical History Cardiac Medical History: Reports: Hx Congestive Heart Failure, Hx Coronary Artery Disease, Hx DVT - right leg, Hx Heart Attack, Hx Hypercholesterolemia, Hx Hypertension, Hx Peripheral Vascular Disease, Hx Heart Murmur Pulmonary Medical History: Reports: Hx Pneumonia Neurological Medical History: Reports: Hx Cerebrovascular Accident - Lt sided weakness-2018, Hx Migraine, Hx Seizures Endocrine Medical History: Reports: Hx Diabetes Mellitus Type 1, Hx Diabetes Mellitus Type 2 Renal/ Medical History: Reports: Hx Kidney Stones GI Medical History: Reports: Hx Gastroesophageal Reflux Disease Musculoskeletal Medical History: Reports Hx Arthritis, Reports Hx Muscle Weakness - Left Skin Medical History: Reports Hx Eczema, Reports Hx Psoriasis Past Surgical History: Reports: Hx Cardiac Catheterization, Hx Cardiac Surgery - VSD having four previous surgeries as a child; heart valve defect, Hx Open Heart Surgery - VSD having five previous surgeries as a child; heart valve defect, Hx Vascular Surgery - Stents in right leg, Other - 4 separate operations for ventricular septal defect as a child. - Immunizations Immunizations up to date: Yes Hx Diphtheria, Pertussis, Tetanus Vaccination: Yes Hx Pneumococcal Vaccination: 03/24/18 Review of Systems - Review of Systems Constitutional: No symptoms reported EENT: See HPI, Nose congestion, Throat pain Cardiovascular: See HPI, Chest pain Respiratory: See HPI, Cough, Hurts to breathe, Short of breath, Sputum, Wheezing Gastrointestinal: No symptoms reported Genitourinary: No symptoms reported Male Genitourinary: No symptoms reported Musculoskeletal: See HPI, Leg swelling, Ankle swelling Skin: No symptoms reported Hematologic/Lymphatic: No symptoms reported Neurological/Psychological: See HPI, Headaches -: Yes All other systems reviewed and negative Physical Exam - Vital signs Vitals: Temp Pulse Resp BP Pulse Ox 99.2 F 102 H 20 189/107 H 96 10/12/18 16:06 10/12/18 16:06 10/12/18 16:06 10/12/18 16:06 10/12/18 16:06 Interpretation: Hypertensive, Tachycardic - Notes Notes: PHYSICAL EXAM - Pulse oximeter at bedside shows a saturation of 98% with good waveform on room air, no hypoxia per my interpretation. The patient's saturation momentarily drops to 90% but quickly rises back to 98% after cough. - Bedside security monitor interpretation: Sinus tachycardia with a rate of 105 per my interpretation. GENERAL: Alert, interacts well. Appears uncomfortable. HEAD: Normocephalic, atraumatic. EYES: Pupils equal, round, and reactive to light. Extraocular movements intact. ENT: Oral mucosa moist, tongue midline. Nasal congestion. NECK: Full range of motion. Supple. Trachea midline. LUNGS: Inspiratory rhonchi, crackles throughout the lower 2/3 of lung [place] bilaterally. Wet sounding cough. Mildly short of breath. HEART: 2/6 holosystolic murmur. Mild tachycardia, regular rhythm. No gallops or rubs. ABDOMEN: Soft, non-tender. Non-distended. Bowel sounds present in all 4 quadrants. No guarding, rigidity, or rebound. EXTREMITIES: Moves all 4 extremities spontaneously. 2+ pitting edema bilate rally up to the level of the knees. NEUROLOGICAL: Alert and oriented x3. Normal speech. PSYCH: Normal affect, normal mood. SKIN: Warm and dry. Course - Re-evaluation Re-evalutation: 10/12/18 19:48 CBC shows mild anemia with hemoglobin 12.1, no leukocytosis, CMP shows slight low sodium 134.3, elevated glucose of 216 otherwise unremarkable, troponin indeterminate 0.037, proBNP elevated 4150. Urinalysis shows glucose and small b lood, patient has no urinary symptoms. No evidence of infection in the urine. Chest x-ray shows "constellation of findings consistent with congestive heart failure" but no evidence of pneumonia. Given his rhinorrhea and sore throat combined with his fever and his cough actually suspect this is a viral upper respiratory infection with cough that is causing his fever, antibiotics are not indicated at this time. Patient does need to be admitted to the hospital for acute on chronic congestive heart failure and a cardiac rule out given his indeterminate troponin. Discussed this patient with Dr. Barraza who agrees to place patient on Dr. Noriega's service on the CU. - Vital Signs Vital signs: Temp Pulse Resp BP Pulse Ox 99.4 F 107 H 18 183/117 H 97 10/12/18 23:00 10/12/18 20:00 10/12/18 23:00 10/12/18 20:00 10/12/18 23:00 - Laboratory Result Diagrams: 10/12/18 17:45 10/12/18 17:45 Laboratory results interpreted by me: 10/12/18 10/12/18 10/12/18 17:06 17:45 17:45 Hgb 12.1 L Hct 36.5 L MCH 26.6 L RDW 17.1 H Sodium 134.3 L Chloride 96 L Glucose 216 H ALT 20 L NT-Pro-B Natriuret Pep Urine Protein >=500 H Urine Glucose (UA) 150 H Urine Blood SMALL H 10/12/18 17:45 Hgb Hct MCH RDW Sodium Chloride Glucose ALT NT-Pro-B Natriuret Pep 4150 H Urine Protein Urine Glucose (UA) Urine Blood - EKG Interpretation by Me Additional EKG results interpreted by me: 10/12/18 19:49 EKG shows sinus tachycardia at a rate of 102, first-degree AV block, left anterior hemiblock, no ST segment elevations or depressions, slow R wave progression no T wave inversions per my interpretation. Discharge - Discharge Clinical Impression: Acute on chronic systolic (congestive) heart failure, Chest pain, rule out acute myocardial infarction, Viral upper respiratory tract infection with cough, Resistant hypertension, Diabetes mellitus type 2 in obese Condition: Fair Disposition: ADMITTED INPATIENT Admitting Provider: Leann Unit Admitted: [facility] I personally performed the services described in the documentation, reviewed and edited the documentation which was dictated to the scribe in my presence, and it accurately records my words and actions.
--- NOTE | 2018-10-12 20:50 | EKG REPORT ---
SEVERITY:- ABNORMAL ECG - SINUS TACHYCARDIA PROBABLE LEFT ATRIAL ABNORMALITY LEFT ANTERIOR FASCICULAR BLOCK BORDERLINE PROLONGED QT INTERVAL : Confirmed by: Loyda Fernandes MD 12-Oct-2018 20:49:20
[2018-10-12] MEDS ORDERED: ACETAMINOPHEN 325 MG TABLET PO ONE (21:25)
[2018-10-13] MEDS ORDERED: TORSEMIDE 20 MG TABLET PO PRN (00:18)
[2018-10-13] MEDS ORDERED: ISOSORB DINIT/HYDRALAZINE HCL 20-37.5 MG TABLET PO ONE (00:30)
[2018-10-13] MEDS ORDERED: VALSARTAN 160 MG TABLET PO ONE (00:30)
[2018-10-13] MEDS ORDERED: SACUBITRIL/VALSARTAN 49 MG/51 MG TABLET PO ONE (00:45)
[2018-10-13] MEDS ORDERED: SPIRONOLACTONE 25 MG TABLET PO ONE (00:45)
[2018-10-13] MEDS ORDERED: CARVEDILOL 12.5 MG TABLET PO ONE (01:00)
[2018-10-13] MEDS ORDERED: SITAGLIPTIN PHOSPHATE 50 MG TABLET PO ONE (01:00)
[2018-10-13] MEDS ORDERED: METFORMIN HCL 500 MG TABLET PO ONE (01:00)
[2018-10-13 01:09] LABS: CREATINE KINASE MB 0.58 ng/mL (<4.55); TROPONIN I 0.041 ng/mL
[2018-10-13] MEDS ORDERED: SITAGLIPTIN PHOSPHATE 50 MG TABLET ONE (02:18)
[2018-10-13] MEDS ORDERED: CARVEDILOL 6.25 MG TABLET ONE (02:19)
[2018-10-13] MEDS ORDERED: DEXTROSE 50%-WATER SYRINGE 25 GM/50 ML DOSE IV PRN (03:00)
[2018-10-13] MEDS ORDERED: GLUCAGON,HUMAN RECOMB 1 MG INJ IM PRN (03:00)
[2018-10-13] MEDS ORDERED: DEXTROSE 40% GEL 15 GM TUBE X 2 PO PRN (03:00)
[2018-10-13] MEDS ORDERED: DEXTROSE 50%-WATER SYRINGE 12.5 GM/25 ML DOSE IV PRN (03:00)
[2018-10-13] MEDS ORDERED: DEXTROSE 40% GEL 15 GM TUBE PO PRN (03:00)
[2018-10-13] MEDS: HYDROCODONE/ACETAMINOPHEN 10-325 MG TABLET PO PRN ×2 (03:49→16:51)
[2018-10-13] MEDS ORDERED: ISOSORB DINIT/HYDRALAZINE HCL 20-37.5 MG TABLET PO SCH (06:00)
[2018-10-13 07:48] LABS: CREATINE KINASE MB 0.73 ng/mL (<4.55); TROPONIN I 0.031 ng/mL
[2018-10-13] MEDS: INSULIN LISPRO 100 UNIT/ML 3 ML VIAL SUBCUT SCH ×4 (08:00→22:08)
[2018-10-13] MEDS: METOLAZONE 5 MG TABLET PO SCH (09:36)
[2018-10-13] MEDS: CLOBETASOL PROPIONATE 0.05% OINTMENT 15 GM TOP SCH ×2 (09:36→17:07)
[2018-10-13] MEDS: CARVEDILOL 12.5 MG TABLET PO SCH ×2 (09:36→21:58)
[2018-10-13] MEDS: AMLODIPINE BESYLATE 10 MG TABLET PO SCH (09:36)
[2018-10-13] MEDS: ENOXAPARIN SODIUM INJ 40 MG/0.4 ML DISP.SYRIN SUBCUT SCH (09:36)
[2018-10-13] MEDS: SITAGLIPTIN PHOSPHATE 50 MG TABLET PO SCH ×2 (09:36→21:58)
[2018-10-13] MEDS: PANTOPRAZOLE SODIUM 40 MG VIAL IV SCH (09:37)
[2018-10-13] MEDS: SACUBITRIL/VALSARTAN 49 MG/51 MG TABLET PO SCH ×2 (09:37→17:07)
[2018-10-13] MEDS: ASPIRIN 325 MG TABLET PO SCH (09:37)
[2018-10-13] MEDS: SPIRONOLACTONE 25 MG TABLET PO SCH ×2 (09:37→21:58)
[2018-10-13] MEDS: METFORMIN HCL 500 MG TABLET PO SCH ×2 (09:37→21:58)
[2018-10-13] MEDS: ISOSORB DINIT/HYDRALAZINE HCL 20-37.5 MG TABLET PO SCH ×2 (09:37→17:07)
[2018-10-13] MEDS ORDERED: CARVEDILOL 12.5 MG TABLET PO SCH (10:00)
[2018-10-13] MEDS ORDERED: (PENDING PHARMACY ID) (Sitagliptin Phos/Metformin Hcl [Janumet 50-1,000 Mg Tablet] 1 TAB) PO SCH (10:00)
[2018-10-13] MEDS: ACETAMINOPHEN 325 MG TABLET PO PRN ×2 (11:55→19:20)
[2018-10-13] MEDS: BUMETANIDE INJ/PF 1 MG/4 ML SDV IV SCH ×2 (11:56→21:59)
[2018-10-13 12:58] LABS: CREATINE KINASE MB 0.64 ng/mL (<4.55); TROPONIN I 0.032 ng/mL
--- NOTE | 2018-10-13 14:19 | RADIOLOGY REPORT (SQ) ---
EXAM DESCRIPTION: CHEST SINGLE VIEW COMPLETED DATE/TIME: 10/13/2018 2:08 pm REASON FOR STUDY: fever COMPARISON: 10/12/2018 EXAM PARAMETERS: NUMBER OF VIEWS: One view. TECHNIQUE: Single frontal radiographic view of the chest acquired. RADIATION DOSE: NA LIMITATIONS: None. FINDINGS: LUNGS AND PLEURA: Interval improvement in the appearance of the chest with decrease in th e congestive heart failure findings. The previously demonstrated opacities at the left lung base is have almost completely resolved. No evidence of acute pulmonary consolidation. No pneumothorax or p leural effusion. MEDIASTINUM AND HILAR STRUCTURES: No masses. Contour normal. HEART AND VASCULAR STRUCTURES: Cardiomegaly, unchanged finding. Improvement in the pulmonary vascul ar congestion. BONES: No acute findings. HARDWARE: None in the chest. OTHER: No other significant finding. IMPRESSION: 1. Interval improvement since the prior study dated 10/12/2018, with a decrease in the C HF changes. 2. The previously demonstrated bibasilar opacities have resolved. 3. No acute pulmonary consolidation. TECHNICAL DOCUMENTATION: JOB ID: [id number] [employer]- All Rights Reserved Reading location - IP/workstation name: [email or web address]
[2018-10-13] MEDS ORDERED: NITROGLYCERIN 0.4 MG/TAB 25 TAB/BOTTLE ONE (16:43)
[2018-10-13] MEDS: GUAIFENESIN/CODEINE PHOS 100-10 MG/ 5 ML UDC PO PRN ×2 (18:08→21:54)
[2018-10-13] MEDS: AZITHROMYCIN 250 MG TABLET PO SCH (18:08)
[2018-10-13 19:34] LABS: CREATINE KINASE MB 0.68 ng/mL (<4.55); TROPONIN I 0.027 ng/mL
--- NOTE | 2018-10-13 19:40 | EKG REPORT ---
SEVERITY:- ABNORMAL ECG - SINUS RHYTHM LEFT ATRIAL ABNORMALITY LEFT ANTERIOR FASCICULAR BLOCK NONSPECIFIC T ABNORMALITIES, ANT-LAT LEADS BORDERLINE PROLONGED QT INTERVAL : Confirmed by: Yoseph Yu MD 13-Oct-2018 19:40:13
--- NOTE | 2018-10-13 20:04 | PDOC H&P ---
History of Present Illness Admission Date/PCP: 10/12/18 20:07 KARTHIK RICCI MD History of Present Illness: SHARON JERONIMO is a 48 year old male,He has multiple comorbid conditions incl uding ischemic cardiomyopathy, type II Diabetes mellitus, diabetic nephropathy, he came to the emergency room last night for evaluation of chest symptoms, cough, shortness of breath, the cough is productive of sputum there is associated pleurisy Past Medical History Cardiac Medical History: Reports: Congestive Heart Failure, Coronary Artery Disease, DVT - right leg, Myocardial Infarction, Hyperlipidema, Hypertension, Peripheral Vascular Disease, Heart Murmur Pulmonary Medical History: Reports: Pneumonia Neurological Medical History: Reports: Migraine, Seizures Endocrine Medical History: Reports: Diabetes Mellitus Type 2 GI Medical History: Reports: Gastroesophageal Reflux Disease Musculoskeltal Medical History: Reports: Arthritis Skin Medical History: Reports: Eczema, Psoriasis Past Surgical History Past Surgical History: Reports: Cardiac Catheterization, Vascular Surgery - Stents in right leg, Other - 4 separate operations for ventricular septal defect as a child. Social History Lives with: Family Smoking Status: Never Smoker Frequency of Alcohol Use: None Hx Recreational Drug Use: No Drugs: None Hx Prescription Drug Abuse: No Family History Family History: Arthritis, CAD, CVA, DM, Hyperlipidemia, Hypertension, Malignancy, Other Parental Family History Reviewed: Yes Children Family History Reviewed: Yes Sibling(s) Family History Reviewed.: Yes Medication/Allergy Home Medications: Amlodipine Besylate [Norvasc 10 mg Tablet] 10 mg PO DAILY 10/13/18 Apremilast [Otezla] 30 mg PO BID 10/13/18 Aspirin [Ecotrin 325 mg EC Tablet] 325 mg PO DAILY 10/13/18 Bumetanide [Bumex 2 mg Tablet] 2 mg PO BID 10/13/18 Carvedilol [Coreg 12.5 mg Tablet] 12.5 mg PO Q12 10/13/18 Clobetasol Propionate [Temovate 0.05% Cream 15 gm] 1 applic TOP BID 10/13/18 Clonidine HCl [Catapres 0.1 mg Tablet] 0.1 mg PO Q8 10/13/18 Hydrocodone/Acetaminophen [[place] 10-325 Tablet] 1 tab PO Q8HP PRN 10/13/18 Isosorb Dinit/Hydralazine HCl [Bidil 20-37.5 mg Tablet] 1 tab PO Q8 10/13/18 Metolazone [Zaroxolyn 5 mg Tablet] 2.5 mg PO DAILY 10/13/18 Sacubitril/Valsartan [Entresto 49 mg/51 mg Tablet] 1 tab PO Q12 10/13/18 Sitagliptin Phos/Metformin HCl [Janumet 50-1,000 mg Tablet] 1 tab PO BID 10/13/18 Spironolactone [Aldactone 25 mg Tablet] 25 mg PO Q12 10/13/18 Torsemide [Demadex 20 mg Tablet] 20 mg PO DAILYP PRN 10/13/18 Allergies/Adverse Reactions: shellfish derived Allergy (Severe, Verified 10/12/18 23:55) morphine [Morphine] Allergy (Mild, Verified 10/12/18 23:55) Shellfish * [Shellfish] Allergy (Mild, Verified 10/12/18 23:55) Anaphylaxis cyclobenzaprine [From Flexeril] Allergy (Verified 10/12/18 23:55) diazepam [From Valium] Allergy (Verified 10/12/18 23:55) diphenhydramine Allergy (Verified 10/12/18 23:55) furosemide [From Lasix] Allergy (Verified 10/12/18 23:55) Review of Systems Constitutional: PRESENT: chills Ears: ABSENT: hearing changes Cardiovascular: ABSENT: as per HPI, chest pain, dyspnea on exertion, edema, orthropnea, palpitations, other Respiratory: PRESENT: cough. ABSENT: hemoptysis Gastrointestinal: ABSENT: abdominal pain, constipation, diarrhea, hematemesis, hematochezia, nausea, vomiting Genitourinary: ABSENT: dysuria, hematuria Musculoskeletal: ABSENT: joint swelling Integumentary: ABSENT: rash, wounds Neurological: ABSENT: abnormal gait, abnormal speech, confusion, dizziness, focal weakness, syncope Psychiatric: ABSENT: anxiety, depression, homidical ideation, suicidal ideation Endocrine: ABSENT: cold intolerance, heat intolerance, menstrual abnormalities, polydipsia, polyuria Hematologic/Lymphatic: ABSENT: easy bleeding, easy bruising, lymphadenopathy Physical Exam Vital Signs: Temp Pulse Resp BP Pulse Ox 102.5 F H 92 16 170/99 H 93 10/13/18 18:48 10/13/18 18:48 10/13/18 18:48 10/13/18 18:48 10/13/18 18:48 Intake & Output 10/12/18 10/13/18 10/14/18 06:59 06:59 06:59 Intake Total 1108 Output Total 3575 800 Balance -3575 308 Weight 115.8 kg 115.8 kg General appearance: PRESENT: mild distress Head exam: PRESENT: atraumatic, normocephalic Eye exam: PRESENT: PERRLA Mouth exam: PRESENT: moist Neck exam: PRESENT: full ROM Respiratory exam: PRESENT: crackles, rhonchi Cardiovascular exam: PRESENT: RRR, +S1, +S2 Pulses: PRESENT: normal dorsalis pedis pul, +2 pedal pulses bilateral Vascular exam: PRESENT: normal capillary refill GI/Abdominal exam: PRESENT: normal bowel sounds, soft Rectal exam: PRESENT: deferred Neurological exam: PRESENT: alert, CN II-XII grossly intact Psychiatric exam: PRESENT: appropriate affect, normal mood Skin exam: PRESENT: dry, intact, warm Results Laboratory Results: 10/12/18 17:45 10/12/18 17:45 10/12/18 10/13/18 10/13/18 17:45 00:20 00:20 Creatine Kinase 210 H CK-MB (CK-2) 0.58 Troponin I 0.037 0.041 NT-Pro-B Natriuret Pep 4150 H 10/13/18 10/13/18 10/13/18 06:27 06:27 12:12 Creatine Kinase 214 H 222 H CK-MB (CK-2) 0.73 Troponin I 0.031 NT-Pro-B Natriuret Pep 10/13/18 10/13/18 10/13/18 12:12 17:50 17:50 Creatine Kinase 186 H CK-MB (CK-2) 0.64 0.68 Troponin I 0.032 0.027 NT-Pro-B Natriuret Pep Impressions: Chest X-Ray 10/13/18 00:00 IMPRESSION: 1. Interval improvement since the prior study dated 10/12/2018, with a decrease in the CHF changes. 2. The previously demonstrated bibasilar opacities have resolved. 3. No acute pulmonary consolidation. Assessment & Plan - Diagnosis (1) Pleurisy Is this a current diagnosis for this admission?: Yes Plan: Start antibiotic azithromycin (2) Diabetes mellitus type 2 in obese Is this a current diagnosis for this admission?: Yes (3) Coronary artery disease Qualifiers: Coronary Disease-Associated Artery/Lesion type: [place] artery [place] vs. transplanted heart: [place] heart Associated angina: without angina Qualified Code(s): I25.10 - Atherosclerotic heart disease of [place] coronary artery without angina pectoris Is this a current diagnosis for this admission?: Yes
[2018-10-14] MEDS: ISOSORB DINIT/HYDRALAZINE HCL 20-37.5 MG TABLET PO SCH ×3 (03:00→17:13)
[2018-10-14] MEDS: GUAIFENESIN/CODEINE PHOS 100-10 MG/ 5 ML UDC PO PRN ×2 (03:35→18:13)
[2018-10-14] MEDS: HYDROCODONE/ACETAMINOPHEN 10-325 MG TABLET PO PRN (03:35)
[2018-10-14] MEDS: INSULIN LISPRO 100 UNIT/ML 3 ML VIAL SUBCUT SCH ×4 (07:36→21:38)
--- NOTE | 2018-10-14 07:51 | EKG REPORT ---
SEVERITY:- ABNORMAL ECG - SINUS RHYTHM PROBABLE LEFT ATRIAL ABNORMALITY LEFT ANTERIOR FASCICULAR BLOCK ABNORMAL T, CONSIDER ISCHEMIA, ANT-LAT LEADS BORDERLINE PROLONGED QT INTERVAL : Confirmed by: Yoseph Yu MD 14-Oct-2018 07:51:11
[2018-10-14] MEDS: AMLODIPINE BESYLATE 10 MG TABLET PO SCH (09:30)
[2018-10-14] MEDS: METOLAZONE 5 MG TABLET PO SCH (09:30)
[2018-10-14] MEDS: ASPIRIN 325 MG TABLET PO SCH (09:30)
[2018-10-14] MEDS: SITAGLIPTIN PHOSPHATE 50 MG TABLET PO SCH ×2 (09:30→21:42)
[2018-10-14] MEDS: CARVEDILOL 12.5 MG TABLET PO SCH ×2 (09:30→21:42)
[2018-10-14] MEDS: SPIRONOLACTONE 25 MG TABLET PO SCH ×2 (09:31→21:42)
[2018-10-14] MEDS: METFORMIN HCL 500 MG TABLET PO SCH ×2 (09:31→21:42)
[2018-10-14] MEDS: SACUBITRIL/VALSARTAN 49 MG/51 MG TABLET PO SCH ×2 (09:32→17:16)
[2018-10-14] MEDS: BUMETANIDE INJ/PF 1 MG/4 ML SDV IV SCH ×2 (09:32→21:43)
[2018-10-14] MEDS: ENOXAPARIN SODIUM INJ 40 MG/0.4 ML DISP.SYRIN SUBCUT SCH (09:33)
[2018-10-14] MEDS: CLOBETASOL PROPIONATE 0.05% OINTMENT 15 GM TOP SCH ×2 (09:36→17:16)
[2018-10-14] MEDS: PANTOPRAZOLE SODIUM 40 MG VIAL IV SCH (09:41)
[2018-10-14] MEDS: AZITHROMYCIN 250 MG TABLET PO SCH (17:16)
--- NOTE | 2018-10-14 20:13 | PDOC DISCHARGE SUMMARY ---
General - Admit/Disc Date/PCP Admission Date/Primary Care Provider: 10/12/18 20:07 KARTHIK RICCI MD Discharge Date: 10/14/18 - Discharge Diagnosis (1) Pleurisy Is this a current diagnosis for this admission?: Yes (2) Diabetes mellitus type 2 in obese Is this a current diagnosis for this admission?: Yes (3) Coronary artery disease Is this a current diagnosis for this admission?: Yes - Additional Information Discharge Diet: Cardiac, Diabetic Discharge Activity: Activity As Tolerated, Balance Activity w/Rest, Weigh Daily Prescriptions: Azithromycin [Zithromax 250 mg Tablet] 250 mg PO QPM #7 tablet Home Medications: Amlodipine Besylate [Norvasc 10 mg Tablet] 10 mg PO DAILY 10/13/18 Apremilast [Otezla] 30 mg PO BID 10/13/18 Aspirin [Ecotrin 325 mg EC Tablet] 325 mg PO DAILY 10/13/18 Carvedilol [Coreg 12.5 mg Tablet] 12.5 mg PO Q12 10/13/18 Clobetasol Propionate [Temovate 0.05% Cream 15 gm] 1 applic TOP BID 10/13/18 Clonidine HCl [Catapres 0.1 mg Tablet] 0.1 mg PO Q8 10/13/18 Hydrocodone/Acetaminophen [[place] 10-325 Tablet] 1 tab PO Q8HP PRN 10/13/18 Isosorb Dinit/Hydralazine HCl [Bidil 20-37.5 mg Tablet] 1 tab PO Q8 10/13/18 Metolazone [Zaroxolyn 5 mg Tablet] 2.5 mg PO DAILY 10/13/18 Sacubitril/Valsartan [Entresto 49 mg/51 mg Tablet] 1 tab PO Q12 10/13/18 Sitagliptin Phos/Metformin HCl [Janumet 50-1,000 mg Tablet] 1 tab PO BID 10/13/18 Spironolactone [Aldactone 25 mg Tablet] 25 mg PO Q12 10/13/18 Torsemide [Demadex 20 mg Tablet] 20 mg PO DAILYP PRN 10/13/18 Azithromycin [Zithromax 250 mg Tablet] 250 mg PO QPM #7 tablet 10/14/18 History of Present Illness History of Present Illness: SHARON JERONIMO is a 48 year old male,He has multiple comorbid conditions including ischemic cardiomyopathy, type II Diabetes mellitus, diabetic nephropathy, he came to the emergency room last night for evaluation of chest symptoms, cough, shortness of breath, the cough is productive of sputum there is associated pleurisy Hospital Course Hospital Course: Patient was admitted for the management of pleurisy, he was treated with antibiotics azithromycin, he has multiple comorbid conditions. He was seen today he feels much better Physical Exam Vital Signs: Temp Pulse Resp BP Pulse Ox 98.8 F 83 16 151/82 H 94 10/14/18 14:46 10/14/18 14:46 10/14/18 14:46 10/14/18 14:46 10/14/18 14:46 Intake & Output 10/13/18 10/14/18 10/15/18 06:59 06:59 06:59 Intake Total 1108 425 Output Total 9528 2425 1200 Balance -3575 -1317 -775 Weight 115.8 kg 109.4 kg General appearance: PRESENT: no acute distress, well-developed, well-nourished Head exam: PRESENT: atraumatic, normocephalic Eye exam: PRESENT: conjunctiva pink, EOMI, PERRLA Ear exam: PRESENT: normal external ear exam Mouth exam: PRESENT: moist, tongue midline Neck exam: PRESENT: full ROM Respiratory exam: PRESENT: clear to auscultation bernardo Cardiovascular exam: PRESENT: RRR, +S1, +S2 Vascular exam: PRESENT: normal capillary refill GI/Abdominal exam: PRESENT: normal bowel sounds, soft Rectal exam: PRESENT: deferred Neurological exam: PRESENT: alert, awake, oriented to person, oriented to place, oriented to time, oriented to situation, CN II-XII grossly intact Psychiatric exam: PRESENT: appropriate affect, normal mood Skin exam: PRESENT: dry, intact, warm Results Laboratory Results: 10/12/18 17:45 10/12/18 17:45 10/12/18 10/13/18 10/13/18 17:45 00:20 00:20 Creatine Kinase 210 H CK-MB (CK-2) 0.58 Troponin I 0.037 0.041 NT-Pro-B Natriuret Pep 4150 H 10/13/18 10/13/18 10/13/18 06:27 06:27 12:12 Creatine Kinase 214 H 222 H CK-MB (CK-2) 0.73 Troponin I 0.031 NT-Pro-B Natriuret Pep 10/13/18 10/13/18 10/13/18 12:12 17:50 17:50 Creatine Kinase 186 H CK-MB (CK-2) 0.64 0.68 Troponin I 0.032 0.027 NT-Pro-B Natriuret Pep 10/14/18 04:18 Creatine Kinase CK-MB (CK-2) Troponin I NT-Pro-B Natriuret Pep 1860 H Impressions: Chest X-Ray 10/13/18 00:00 IMPRESSION: 1. Interval improvement since the prior study dated 10/12/2018, with a decrease in the CHF changes. 2. The previously demonstrated bibasilar opacities have resolved. 3. No acute pulmonary consolidation. Qualifiers - * PATIENT BEING DISCHARGED WITH ANY OF THE FOLLOWING DIAGNOSIS: No
[2018-10-15] MEDS: ISOSORB DINIT/HYDRALAZINE HCL 20-37.5 MG TABLET PO SCH (01:30)
[2018-10-15 07:55] VITALS: BP 159/99
== END 2018-10-15 08:23 | disposition home or self-care (01) | DRG 302 ==
LOC: ER 15:58 → EH 20:07 → 3N 10-13 02:41
PROVIDERS: ADMIT Internal Medicine; ATTEND Internal Medicine
DX: I25.10 Atherosclerotic heart disease of native coronary artery without angina pectoris (principal); I50.23 Acute on chronic systolic (congestive) heart failure; E11.9 Type 2 diabetes mellitus without complications; E66.9 Obesity, unspecified; R09.1 Pleurisy; I25.5 Ischemic cardiomyopathy; E11.21 Type 2 diabetes mellitus with diabetic nephropathy; E11.51 Type 2 diabetes mellitus with diabetic peripheral angiopathy without gangrene; E78.5 Hyperlipidemia, unspecified; K21.9 Gastro-esophageal reflux disease without esophagitis; L30.9 Dermatitis, unspecified; L40.9 Psoriasis, unspecified; I11.0 Hypertensive heart disease with heart failure; I25.2 Old myocardial infarction; Z79.899 Other long term (current) drug therapy; Z79.82 Long term (current) use of aspirin; Z88.6 Allergy status to analgesic agent; Z88.8 Allergy status to other drugs, medicaments and biological substances; Z82.61 Family history of arthritis; Z82.3 Family history of stroke; Z83.3 Family history of diabetes mellitus; Z80.9 Family history of malignant neoplasm, unspecified; Z82.49 Family history of ischemic heart disease and other diseases of the circulatory system
CPT/HCPCS: 36415; 71045; 71046; 80053; 81001; 82550; 82553; 82962; 83880; 84484; 85025; 87040; 87070; 87077; 87205; 93005; 93010; 99285; J1650; J1815; J3490; S0164

== ENCOUNTER 2018-10-27 11:23 | Inpatient (IN) | payer MEDICARE, MEDICAID ==
[2018-10-27] MEDS ORDERED: ASPIRIN 81 MG TABLET, CHEWABLE PO ONE (11:37)
--- NOTE | 2018-10-27 11:41 | ER Document Report ---
ED Medical Screen (RME) - General Chief Complaint: Chest Pain Stated Complaint: CHEST PAIN Time Seen by Provider: 10/27/18 11:36 Primary Care Provider: KARTHIK RICCI MD [Primary Care Provider] - Follow up as needed Mode of Arrival: Ambulatory Information source: Patient Notes: 48-year-old male presented to ED for complaint of chest pain shortness of breath difficulty getting his breath. He states he has a history of diabetes blood pressure cholesterol heart attack coronary artery disease and has had a heart cath and stents. States he was admitted about a week ago for cardiac pain. Patient states he did get better for a while but his pain has much worse at this time. He does not drink smoke or do any drugs. He does live by himself and he is retired from the . I have greeted and performed a rapid initial assessment of this patient. A comprehensive ED assessment and evaluation of the patient, analysis of test results and completion of medical decision making process will be conducted by an additional ED providers. TRAVEL OUTSIDE OF THE [place] IN LAST 30 DAYS: No - Related Data Allergies/Adverse Reactions: shellfish derived Allergy (Severe, Verified 10/27/18 11:26) morphine [Morphine] Allergy (Mild, Verified 10/27/18 11:26) Shellfish * [Shellfish] Allergy (Mild, Verified 10/27/18 11:26) Anaphylaxis cyclobenzaprine [From Flexeril] Allergy (Verified 10/27/18 11:26) diazepam [From Valium] Allergy (Verified 10/27/18 11:26) diphenhydramine Allergy (Verified 10/27/18 11:26) furosemide [From Lasix] Allergy (Verified 10/27/18 11:26) Past Medical History - Social History Family history: CAD - Past Medical History Cardiac Medical History: Reports: Hx Congestive Heart Failure, Hx Coronary Artery Disease, Hx DVT - right leg, Hx Heart Attack, Hx Hypercholesterolemia, Hx Hypertension, Hx Peripheral Vascular Disease, Hx Heart Murmur Pulmonary Medical History: Reports: Hx Pneumonia Denies: Hx Asthma, Hx COPD, Hx Tuberculosis Neurological Medical History: Reports: Hx Cerebrovascular Accident - Lt sided weakness-2018, Hx Migraine, Hx Seizures Endocrine Medical History: Reports: Hx Diabetes Mellitus Type 1, Hx Diabetes Mellitus Type 2. Denies: Hx Hyperthyroidism, Hx Hypothyroidism Renal/ Medical History: Reports: Hx Kidney Stones. Denies: Hx Peritoneal Dialysis GI Medical History: Reports: Hx Gastroesophageal Reflux Disease. Denies: Hx Cirrhosis, Hx Hepatitis Musculoskeltal Medical History: Reports Hx Arthritis, Reports Hx Muscle Weakness - Left Skin Medical History: Reports Hx Eczema, Denies Hx MRSA, Reports Hx Psoriasis Psychiatric Medical History: Denies: Hx Depression, Hx Schizoaffective Disorder Infectious Medical History: Denies: Hx Hepatitis, Hx MRSA Past Surgical History: Reports: Hx Cardiac Catheterization, Hx Cardiac Surgery - VSD having four previous surgeries as a child; heart valve defect, Hx Open Heart Surgery - VSD having five previous surgeries as a child; heart valve defect, Hx Vascular Surgery - Stents in right leg, Other - 4 separate operations for ventricular septal defect as a child.. Denies: Hx Pacemaker - Immunizations Immunizations up to date: Yes Hx Diphtheria, Pertussis, Tetanus Vaccination: Yes History of Influenza Vaccine for 03/2017 - 08/2017 Season: Yes Influenza Administration Date for 03/2017 - 08/2017 Season: 05/10/17 Physical Exam - Vital signs Vitals: Temp Pulse Resp BP Pulse Ox 98.1 F 100 16 218/134 H 97 10/27/18 11:35 10/27/18 11:35 10/27/18 11:35 10/27/18 11:35 10/27/18 11:35 Course - Vital Signs Vital signs: Temp Pulse Resp BP Pulse Ox 98.1 F 100 16 205/115 H 97 10/27/18 11:35 10/27/18 11:35 10/27/18 11:35 10/27/18 11:47 10/27/18 11:35 Doctor's Discharge - Discharge Referrals: KARTHIK RICCI MD [Primary Care Provider] - Follow up as needed
[2018-10-27 12:25] LABS: HEMATOCRIT 34.4 % (37.9-51.0); HEMOGLOBIN 11.1 g/dL (13.5-17.0); MEAN CORPUSCULAR HEMOGLOBIN 26.2 pg (27.0-33.4); MEAN CORPUSCULAR HGB CONC 32.2 g/dL (32.0-36.0); MEAN CORPUSCULAR VOLUME 82 fl (80-97); PLATELET COUNT 330 10^3/uL (150-450); RED BLOOD COUNT 4.23 10^6/uL (4.35-5.55); RED CELL DISTRIBUTION WIDTH 17.3 % (11.5-14.0); WHITE BLOOD COUNT 5.3 10^3/uL (4.0-10.5)
[2018-10-27 12:32] LABS: APPEARANCE,URINE CLEAR; BILIRUBIN,URINE NEGATIVE (NEGATIVE); COLOR,URINE YELLOW; GLUCOSE, URINE 150 mg/dL (NEGATIVE); KETONES,URINE NEGATIVE (NEGATIVE); LEUKOCYTE ESTERASE,URINE NEGATIVE (NEGATIVE); NITRITE,URINE NEGATIVE (NEGATIVE); PROTEIN,URINE >=500 mg/dL (NEGATIVE); UROBILINOGEN,URINE NEGATIVE mg/dL (<2.0)
[2018-10-27 12:43] LABS: ALANINE AMINOTRANSFERASE 15 U/L (21-72); ALBUMIN 3.1 g/dL (3.5-5.0); ALKALINE PHOSPHATASE 105 U/L (38-126); ANION GAP 11 (5-19); ASPARTATE AMINO TRANSFERASE 17 U/L (17-59); BILIRUBIN,DIRECT 0.2 mg/dL (0.0-0.4); BILIRUBIN,TOTAL 0.5 mg/dL (0.2-1.3); BLOOD UREA NITROGEN 18 mg/dL (7-20); CALCIUM 8.8 mg/dL (8.4-10.2); CARBON DIOXIDE 25 mmol/L (22-30); CHLORIDE 100 mmol/L (98-107); GLUCOSE 353 mg/dL (75-110); LIPASE 90.4 U/L (23-300); POTASSIUM 3.6 mmol/L (3.6-5.0); SODIUM 136.1 mmol/L (137-145)
--- NOTE | 2018-10-27 12:43 | RADIOLOGY REPORT (SQ) ---
EXAM DESCRIPTION: CHEST 2 VIEWS COMPLETED DATE/TIME: 10/27/2018 12:29 pm REASON FOR STUDY: chest pain COMPARISON: 10/13/2018 EXAM PARAMETERS: NUMBER OF VIEWS: two views TECHNIQUE: Digital Frontal and Lateral radiographic views of the chest acquired. RADIATION DOSE: NA LIMITATIONS: none FINDINGS: LUNGS AND PLEURA: No opacities, masses or pneumothorax. No pleural effusion. MEDIASTINUM AND HILAR STRUCTURES: No masses or contour abnormalities. HEART AND VASCULAR STRUCTURES: Cardiomegaly, unchanged finding. Pulmonary vasculature appears sligh tly more prominent than on the prior examination. BONES: No acute findings. HARDWARE: None in the chest. OTHER: No other significant finding. IMPRESSION: 1. Cardiomegaly, unchanged finding since the prior study dated 10/13/2018. Prominent pu lmonary vasculature appears more pronounced than on the prior study, may be on the basis of vascular congestion. 2. No acute pulmonary consolidation. TECHNICAL DOCUMENTATION: JOB ID: [id number] [employer]- All Rights Reserved Reading location - IP/workstation name: [email or web address]
[2018-10-27 12:55] LABS: CREATINE KINASE MB 0.94 ng/mL (<4.55); TROPONIN I 0.021 ng/mL
[2018-10-27] MEDS ORDERED: BUMETANIDE INJ/PF 1 MG/4 ML SDV IV ONE (13:00)
[2018-10-27 13:02] LABS: ABSOLUTE LYMPHOCYTES# (MANUAL) 1.1 10^3/uL (0.5-4.7); ABSOLUTE MONOCYTES # (MANUAL) 0.3 10^3/uL (0.1-1.4); ABSOLUTE NEUTROPHILS# (MANUAL) 3.8 10^3/uL (1.7-8.2); BASOPHILS % (MANUAL) 1 % (0-2); EOSINOPHILS % (MANUAL) 2 % (0-6); LYMPHOCYTES % (MANUAL) 20 % (13-45); MONOCYTES % (MANUAL) 5 % (3-13); SEGMENTED NEUTROPHILS % (MAN) 72 % (42-78); TOTAL CELLS COUNTED 100
[2018-10-27 13:03] LABS: ANISOCYTOSIS 1+; OVALOCYTES SLIGHT; PLATELET COMMENT ADEQUATE; POIKILOCYTOSIS SLIGHT; POLYCHROMASIA SLIGHT
--- NOTE | 2018-10-27 14:35 | ER Document Report ---
Entered by DILLON MENDEZ SCRIBE 10/27/18 1233 Acting as scribe for:MARNI DICKEY DO ED General - General Chief Complaint: Chest Pain Stated Complaint: CHEST PAIN Time Seen by Provider: 10/27/18 11:36 Primary Care Provider: KARTHIK RICCI MD [Primary Care Provider] - Follow up as needed Mode of Arrival: Ambulatory Information source: Patient Notes: Patient is a 48 year old male with CHF, CAD, HTN, type 2 diabetes with a history of LA and stents presents to the emergency department complaining of chest pain, nausea, vomiting and shortness of breath onset 3 days ago. Patient states his chest pain and shortness of breath worsened last night. He states his chest pain is exacerbated with deep breathing. Of note, patient recently presented to the ED on 10/12/18 complaining of similar symptoms and was admitted with a diagnosis of pleurisy and discharged home on 10/15/18. Patient states his chest pain is worse today than on his last visit. He states he last saw his PCP, Dr. Rizo, while admitted to the hospital. TRAVEL OUTSIDE OF THE [place] IN LAST 30 DAYS: No - Related Data Allergies/Adverse Reactions: shellfish derived Allergy (Severe, Verified 10/27/18 11:26) morphine [Morphine] Allergy (Mild, Verified 10/27/18 11:26) Shellfish * [Shellfish] Allergy (Mild, Verified 10/27/18 11:26) Anaphylaxis cyclobenzaprine [From Flexeril] Allergy (Verified 10/27/18 11:26) diazepam [From Valium] Allergy (Verified 10/27/18 11:26) diphenhydramine Allergy (Verified 10/27/18 11:26) furosemide [From Lasix] Allergy (Verified 10/27/18 11:26) Past Medical History - Social History Smoking Status: Unknown if Ever Smoked Chew tobacco use (# tins/day): No Frequency of alcohol use: None Drug Abuse: None Family History: Arthritis, CAD, CVA, DM, Hyperlipidemia, Hypertension, Malignancy, Other Patient has suicidal ideation: No Patient has homicidal ideation: No - Past Medical History Cardiac Medical History: Reports: Hx Congestive Heart Failure, Hx Coronary Artery Disease, Hx DVT - right leg, Hx Heart Attack, Hx Hypercholesterolemia, Hx Hypertension, Hx Peripheral Vascular Disease, Hx Heart Murmur Pulmonary Medical History: Reports: Hx Pneumonia Neurological Medical History: Reports: Hx Cerebrovascular Accident - Lt sided weakness-2018, Hx Migraine, Hx Seizures Endocrine Medical History: Reports: Hx Diabetes Mellitus Type 1, Hx Diabetes Mellitus Type 2 Renal/ Medical History: Reports: Hx Kidney Stones GI Medical History: Reports: Hx Gastroesophageal Reflux Disease Musculoskeletal Medical History: Reports Hx Arthritis, Reports Hx Muscle Weakness - Left Skin Medical History: Reports Hx Eczema, Reports Hx Psoriasis Past Surgical History: Reports: Hx Cardiac Catheterization, Hx Cardiac Surgery - VSD having four previous surgeries as a child; heart valve defect, Hx Open Heart Surgery - VSD having five previous surgeries as a child; heart valve defect, Hx Vascular Surgery - Stents in right leg, Other - 4 separate operations for ventricular septal defect as a child. - Immunizations Immunizations up to date: Yes Hx Diphtheria, Pertussis, Tetanus Vaccination: Yes Hx Pneumococcal Vaccination: 03/24/18 Review of Systems - Review of Systems Constitutional: No symptoms reported EENT: No symptoms reported Cardiovascular: See HPI, Chest pain Respiratory: See HPI, Short of breath Gastrointestinal: See HPI, Nausea, Vomiting Genitourinary: No symptoms reported Male Genitourinary: No symptoms reported Musculoskeletal: No symptoms reported Skin: No symptoms reported Hematologic/Lymphatic: No symptoms reported Neurological/Psychological: No symptoms reported -: Yes All other systems reviewed and negative Physical Exam - Vital signs Vitals: Temp Pulse Resp BP Pulse Ox 98.1 F 100 16 218/134 H 97 10/27/18 11:35 10/27/18 11:35 10/27/18 11:35 10/27/18 11:35 10/27/18 11:35 - Notes Notes: GENERAL: Alert, interacts well. Appears mildly uncomfortable. HEAD: Normocephalic, atraumatic. EYES: Pupils equal, round, and reactive to light. Extraocular movements intact. ENT: Oral mucosa moist, tongue midline. NECK: Full range of motion. Supple. Trachea midline. LUNGS: Dry cough. Mildly tachypneic. Clear to auscultation bilaterally, no wheezes, rales, or rhonchi. No respiratory distress. HEART: Regular rate and rhythm. 3 out of 6 systolic murmur heard best heard at the left lower sternal border. ABDOMEN: Soft, epigastric tenderness to palpation, plaquing across the abdomen consitent with patient's history of psoriasis. . Non-distended. Bowel sounds present in all 4 quadrants. No guarding, rigidity, or rebound. EXTREMITIES: Moves all 4 extremities spontaneously. No edema, radial and dorsalis pedis pulses 2/4 bilaterally. No cyanosis. NEUROLOGICAL: Alert and oriented x3. Normal speech. PSYCH: Normal affect, normal mood. SKIN: Warm, dry, normal turgor. Course - Re-evaluation Re-evalutation: 10/27/18 14:33 CBC shows chronic anemia with hemoglobin 11.1, CMP shows elevated glucose at 353, troponin is detectable at 0.021 but still negative, proBNP elevated at 5690, higher than it was on discharge and higher than the last admission, chest x-ray shows pulmonary vascular congestion. EKG is nonischemic. Discussed case with Dr. Ricci the patient's primary care physician who agrees to admit the patient to the hospital again for CHF exacerbation. - Vital Signs Vital signs: Temp Pulse Resp BP Pulse Ox 98.1 F 100 20 186/121 H 99 10/27/18 11:35 10/27/18 11:35 10/27/18 13:01 10/27/18 13:01 10/27/18 13:01 - Laboratory Result Diagrams: 10/27/18 11:53 10/27/18 11:53 Laboratory results interpreted by me: 10/27/18 10/27/18 10/27/18 11:53 11:53 11:53 RBC 4.23 L Hgb 11.1 L Hct 34.4 L MCH 26.2 L RDW 17.3 H Sodium 136.1 L Glucose 353 H ALT 15 L NT-Pro-B Natriuret Pep Albumin 3.1 L Urine Protein >=500 H Urine Glucose (UA) 150 H 10/27/18 11:53 RBC Hgb Hct MCH RDW Sodium Glucose ALT NT-Pro-B Natriuret Pep 5690 H Albumin Urine Protein Urine Glucose (UA) - EKG Interpretation by Me Additional EKG results interpreted by me: 10/27/18 14:33 EKG shows sinus tachycardia at a rate of 102, left anterior hemiblock, LVH, interventricular conduction delay, prolonged QT, T wave inversions in 1, aVL, V5 and V6 per my interpretation. 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
--- NOTE | 2018-10-27 16:11 | EKG REPORT ---
SEVERITY:- ABNORMAL ECG - SINUS TACHYCARDIA PROBABLE LEFT ATRIAL ABNORMALITY LEFT ANTERIOR FASCICULAR BLOCK NONSPECIFIC T ABNORMALITIES, LATERAL LEADS PROLONGED QT INTERVAL : Confirmed by: Loyda Fernandes MD 27-Oct-2018 16:10:52
[2018-10-27] MEDS ORDERED: TORSEMIDE 20 MG TABLET PO PRN (20:10)
--- NOTE | 2018-10-27 20:10 | PDOC H&P ---
History of Present Illness Admission Date/PCP: 10/27/18 14:49 KARTHIK RICCI MD History of Present Illness: SHARON JERONIMO is a 48 year old male, He has a history of chronic systolic and diastolic heart failure, history of severe psoriasis, he came the emergency room for evaluation of chest pain, shortness of breath the emergency room it was felt that he was in CHF., Chest x-ray showed cardiomegaly with PVCs Past Medical History Cardiac Medical History: Reports: Congestive Heart Failure, Coronary Artery Disease, DVT - right leg, Myocardial Infarction, Hyperlipidema, Hypertension, Peripheral Vascular Disease, Heart Murmur Pulmonary Medical History: Reports: Pneumonia Neurological Medical History: Reports: Migraine, Seizures Endocrine Medical History: Reports: Diabetes Mellitus Type 2 GI Medical History: Reports: Gastroesophageal Reflux Disease Musculoskeltal Medical History: Reports: Arthritis Skin Medical History: Reports: Eczema, Psoriasis Infectious Medical History: Denies: Methicillin-Resistant Staph Aureus Past Surgical History Past Surgical History: Reports: Cardiac Catheterization, Vascular Surgery - Goldy nts in right leg, Other - 4 separate operations for ventricular septal defect as a child. Social History Smoking Status: Never Smoker Frequency of Alcohol Use: None Hx Recreational Drug Use: No Drugs: None Hx Prescription Drug Abuse: No Family History Family History: Arthritis, CAD, CVA, DM, Hyperlipidemia, Hypertension, Malignancy, Other Parental Family History Reviewed: Yes Children Family History Reviewed: Yes Sibling(s) Family History Reviewed.: Yes Medication/Allergy Home Medications: RX: Amlodipine Besylate [Norvasc 10 mg Tablet] 10 mg PO DAILY 10/13/18 RX: Apremilast [Otezla] 30 mg PO BID 10/13/18 RX: Aspirin [Ecotrin 325 mg EC Tablet] 325 mg PO DAILY 10/13/18 RX: Carvedilol [Coreg 12.5 mg Tablet] 12.5 mg PO Q12 10/13/18 RX: Clobetasol Propionate [Temovate 0.05% Cream 15 gm] 1 applic TOP BID 10/13/18 RX: Clonidine HCl [Catapres 0.1 mg Tablet] 0.1 mg PO Q8 10/13/18 RX: Hydrocodone/Acetaminophen [[place] 10-325 Tablet] 1 tab PO Q8HP PRN 10/13/18 RX: Isosorb Dinit/Hydralazine HCl [Bidil 20-37.5 mg Tablet] 1 tab PO Q8 10/13/18 RX: Metolazone [Zaroxolyn 5 mg Tablet] 2.5 mg PO DAILY 10/13/18 RX: Sacubitril/Valsartan [Entresto 49 mg/51 mg Tablet] 1 tab PO Q12 10/13/18 RX: Sitagliptin Phos/Metformin HCl [Janumet 50-1,000 mg Tablet] 1 tab PO BID 10/13/18 RX: Spironolactone [Aldactone 25 mg Tablet] 25 mg PO Q12 10/13/18 RX: Torsemide [Demadex 20 mg Tablet] 20 mg PO DAILYP PRN 10/13/18 RX: Azithromycin [Zithromax 250 mg Tablet] 250 mg PO QPM #7 tablet 10/14/18 Allergies/Adverse Reactions: shellfish derived Allergy (Severe, Verified 10/27/18 11:26) morphine [Morphine] Allergy (Mild, Verified 10/27/18 11:26) Shellfish * [Shellfish] Allergy (Mild, Verified 10/27/18 11:26) Anaphylaxis cyclobenzaprine [From Flexeril] Allergy (Verified 10/27/18 11:26) diazepam [From Valium] Allergy (Verified 10/27/18 11:26) diphenhydramine Allergy (Verified 10/27/18 11:26) furosemide [From Lasix] Allergy (Verified 10/27/18 11:26) Review of Systems Constitutional: ABSENT: chills, fever(s), headache(s), weight gain, weight loss Eyes: ABSENT: visual disturbances Ears: ABSENT: hearing changes Cardiovascular: PRESENT: chest pain, dyspnea on exertion. ABSENT: edema, orthropnea, palpitations Respiratory: ABSENT: cough, hemoptysis Gastrointestinal: ABSENT: abdominal pain, constipation, diarrhea, hematemesis, hematochezia, nausea, vomiting Genitourinary: ABSENT: dysuria, hematuria Musculoskeletal: ABSENT: joint swelling Integumentary: ABSENT: rash, wounds Neurological: ABSENT: abnormal gait, abnormal speech, confusion, dizziness, focal weakness, syncope Psychiatric: ABSENT: anxiety, depression, homidical ideation, suicidal ideation Endocrine: ABSENT: cold intolerance, heat intolerance, menstrual abnormalities, polydipsia, polyuria Hematologic/Lymphatic: ABSENT: easy bleeding, easy bruising, lymphadenopathy Physical Exam Vital Signs: Temp Pulse Resp BP Pulse Ox 98.2 F 89 27 H 184/103 H 98 10/27/18 18:21 10/27/18 18:27 10/27/18 18:27 10/27/18 18:27 10/27/18 18:27 Intake & Output 10/26/18 10/27/18 10/28/18 06:59 06:59 06:59 Output Total 1824 Balance -1824 Weight 117.2 kg General appearance: PRESENT: no acute distress Head exam: PRESENT: atraumatic, normocephalic Eye exam: PRESENT: PERRLA Ear exam: PRESENT: normal external ear exam Mouth exam: PRESENT: moist, tongue midline Neck exam: PRESENT: full ROM Respiratory exam: PRESENT: crackles Cardiovascular exam: PRESENT: RRR, +S1, +S2 Vascular exam: PRESENT: normal capillary refill GI/Abdominal exam: PRESENT: normal bowel sounds, soft Rectal exam: PRESENT: deferred Neurological exam: PRESENT: alert, CN II-XII grossly intact Psychiatric exam: PRESENT: appropriate affect, normal mood Skin exam: PRESENT: dry, intact, warm. ABSENT: cyanosis, rash Results Laboratory Results: 10/27/18 11:53 10/27/18 11:53 10/27/18 10/27/18 10/27/18 11:53 11:53 11:53 WBC 5.3 RBC 4.23 L Hgb 11.1 L Hct 34.4 L MCV 82 MCH 26.2 L MCHC 32.2 RDW 17.3 H Plt Count 330 Seg Neutrophils % Not Reportable Lymphocytes % Not Reportable Monocytes % Not Reportable Eosinophils % Not Reportable Basophils % Not Reportable Absolute Neutrophils Not Reportable Absolute Lymphocytes Not Reportable Absolute Monocytes Not Reportable Absolute Eosinophils Not Reportable Absolute Basophils Not Reportable Sodium 136.1 L Potassium 3.6 Chloride 100 Carbon Dioxide 25 Anion Gap 11 BUN 18 Creatinine 1.17 Est GFR ( Amer) > 60 Est GFR (Non-Af Amer) > 60 Glucose 353 H Calcium 8.8 Total Bilirubin 0.5 AST 17 ALT 15 L Alkaline Phosphatase 105 Total Protein 7.0 Albumin 3.1 L Lipase 90.4 Urine Color YELLOW Urine Appearance CLEAR Urine pH 6.0 Ur Specific Purchase 1.020 Urine Protein >=500 H Urine Glucose (UA) 150 H Urine Ketones NEGATIVE Urine Blood NEGATIVE Urine Nitrite NEGATIVE Ur Leukocyte Esterase NEGATIVE Urine WBC (Auto) 1 Urine RBC (Auto) 3 10/27/18 10/27/18 10/27/18 11:53 11:53 17:00 CK-MB (CK-2) 0.94 Troponin I 0.021 Cancelled NT-Pro-B Natriuret Pep 5690 H 10/27/18 17:30 CK-MB (CK-2) Troponin I 0.026 NT-Pro-B Natriuret Pep Impressions: Chest X-Ray 10/27/18 11:37 IMPRESSION: 1. Cardiomegaly, unchanged finding since the prior study dated 10/13/2018. Prominent pulmonary vasculature appears more pronounced than on the prior study, may be on the basis of vascular congestion. 2. No acute pulmonary consolidation. Assessment & Plan - Diagnosis (1) Acute combined systolic and diastolic ACC/AHA stage C congestive heart failure Is this a current diagnosis for this admission?: Yes (2) Nephrotic range proteinuria Is this a current diagnosis for this admission?: Yes
[2018-10-27] MEDS ORDERED: (PENDING PHARMACY ID) (Sitagliptin Phos/Metformin Hcl [Janumet 50-1,000 Mg Tablet] 1 TAB) PO SCH (20:15)
[2018-10-27] MEDS ORDERED: (PENDING PHARMACY ID) (Apremilast [Otezla] 30 MG) PO SCH (20:15)
[2018-10-27] MEDS: AZITHROMYCIN 250 MG TABLET PO SCH (20:48)
[2018-10-27] MEDS: ASPIRIN 325 MG TABLET, ENT COATED PO SCH (20:48)
[2018-10-27] MEDS: HYDROCODONE/ACETAMINOPHEN 10-325 MG TABLET PO PRN (20:48)
[2018-10-27] MEDS: METOLAZONE 5 MG TABLET PO SCH (20:48)
[2018-10-27] MEDS: AMLODIPINE BESYLATE 10 MG TABLET PO SCH (20:49)
[2018-10-27] MEDS ORDERED: CLOBETASOL PROPIONATE 0.05% CREAM 15 GM TOP SCH (22:00)
[2018-10-27] MEDS: SACUBITRIL/VALSARTAN 49 MG/51 MG TABLET PO SCH (22:01)
[2018-10-27] MEDS: ISOSORB DINIT/HYDRALAZINE HCL 20-37.5 MG TABLET PO SCH (22:01)
[2018-10-27] MEDS: SPIRONOLACTONE 25 MG TABLET PO SCH (22:01)
[2018-10-27] MEDS: CARVEDILOL 12.5 MG TABLET PO SCH (22:03)
[2018-10-27] MEDS: CLONIDINE HCL 0.1 MG TABLET PO SCH (22:03)
[2018-10-27] MEDS ORDERED: SITAGLIPTIN PHOSPHATE 50 MG TABLET PO ONE (22:15)
[2018-10-27] MEDS ORDERED: METFORMIN HCL 500 MG TABLET PO ONE (22:15)
[2018-10-27] MEDS ORDERED: CLOBETASOL PROPIONATE 0.05% OINTMENT 15 GM TP ONE (22:30)
[2018-10-28] MEDS: CLONIDINE HCL 0.1 MG TABLET PO SCH ×3 (05:13→22:37)
[2018-10-28] MEDS: HYDROCODONE/ACETAMINOPHEN 10-325 MG TABLET PO PRN ×2 (05:13→19:55)
[2018-10-28] MEDS: ISOSORB DINIT/HYDRALAZINE HCL 20-37.5 MG TABLET PO SCH ×3 (05:13→22:36)
[2018-10-28] MEDS: CARVEDILOL 12.5 MG TABLET PO SCH ×2 (10:05→22:36)
[2018-10-28] MEDS: METOLAZONE 5 MG TABLET PO SCH (10:05)
[2018-10-28] MEDS: SPIRONOLACTONE 25 MG TABLET PO SCH ×2 (10:05→22:36)
[2018-10-28] MEDS: METFORMIN HCL 500 MG TABLET PO SCH ×2 (10:05→18:15)
[2018-10-28] MEDS: ASPIRIN 325 MG TABLET, ENT COATED PO SCH (10:05)
[2018-10-28] MEDS: AMLODIPINE BESYLATE 10 MG TABLET PO SCH (10:05)
[2018-10-28] MEDS: SITAGLIPTIN PHOSPHATE 50 MG TABLET PO SCH ×2 (10:06→18:15)
[2018-10-28] MEDS: SACUBITRIL/VALSARTAN 49 MG/51 MG TABLET PO SCH ×2 (10:10→22:36)
[2018-10-28] MEDS: CLOBETASOL PROPIONATE 0.05% OINTMENT 15 GM TP SCH ×2 (13:31→22:44)
[2018-10-28] MEDS: AZITHROMYCIN 250 MG TABLET PO SCH (18:15)
[2018-10-28] MEDS: COLCHICINE 0.6 MG TABLET PO SCH (19:55)
[2018-10-28] MEDS: BUMETANIDE INJ/PF 1 MG/4 ML SDV IV SCH (22:36)
--- NOTE | 2018-10-28 22:41 | PDOC CONSULTATION ---
Consultation-Blank Consultation: Past Medical History Cardiac Medical History: Reports: Congestive Heart Failure, Coronary Artery Disease, DVT - right leg, Myocardial Infarction, Hyperlipidema, Hypertension, Peripheral Vascular Disease, Heart Murmur Pulmonary Medical History: Reports: Pneumonia Neurological Medical History: Reports: Migraine, Seizures Endocrine Medical History: Reports: Diabetes Mellitus Type 2 GI Medical History: Reports: Gastroesophageal Reflux Disease Musculoskeltal Medical History: Reports: Arthritis Skin Medical History: Reports: Eczema, Psoriasis Infectious Medical History: Denies: Methicillin-Resistant Staph Aureus Past Surgical History Past Surgical History: Reports: Cardiac Catheterization, Vascular Surgery - Stents in right leg, Other - 4 separate operations for ventricular septal defect as a child. Social History Smoking Status: Never Smoker Frequency of Alcohol Use: None Hx Recreational Drug Use: No Drugs: None Hx Prescription Drug Abuse: No Family History Family History: Arthritis, CAD, CVA, DM, Hyperlipidemia, Hypertension, Malignancy, Other Parental Family History Reviewed: Yes Children Family History Reviewed: Yes Sibling(s) Family History Reviewed.: Yes Medication/Allergy Home Medications: Amlodipine Besylate [Norvasc 10 mg Tablet] 10 mg PO DAILY 10/13/18 Apremilast [Otezla] 30 mg PO BID 10/13/18 Aspirin [Ecotrin 325 mg EC Tablet] 325 mg PO DAILY 10/13/18 Carvedilol [Coreg 12.5 mg Tablet] 12.5 mg PO Q12 10/13/18 Clobetasol Propionate [Temovate 0.05% Cream 15 gm] 1 applic TOP BID 10/13/18 Clonidine HCl [Catapres 0.1 mg Tablet] 0.1 mg PO Q8 10/13/18 Hydrocodone/Acetaminophen [[place] 10-325 Tablet] 1 tab PO Q8HP PRN 10/13/18 Isosorb Dinit/Hydralazine HCl [Bidil 20-37.5 mg Tablet] 1 tab PO Q8 10/13/18 Metolazone [Zaroxolyn 5 mg Tablet] 2.5 mg PO DAILY 10/13/18 Sacubitril/Valsartan [Entresto 49 mg/51 mg Tablet] 1 tab PO Q12 10/13/18 Sitagliptin Phos/Metformin HCl [Janumet 50-1,000 mg Tablet] 1 tab PO BID 10/13/18 Spironolactone [Aldactone 25 mg Tablet] 25 mg PO Q12 10/13/18 Torsemide [Demadex 20 mg Tablet] 20 mg PO DAILYP PRN 10/13/18 Azithromycin [Zithromax 250 mg Tablet] 250 mg PO QPM #7 tablet 10/14/18 Allergies/Adverse Reactions: shellfish derived Allergy (Severe, Verified 10/27/18 11:26) morphine [Morphine] Allergy (Mild, Verified 10/27/18 11:26) Shellfish * [Shellfish] Allergy (Mild, Verified 10/27/18 11:26) Anaphylaxis cyclobenzaprine [From Flexeril] Allergy (Verified 10/27/18 11:26) diazepam [From Valium] Allergy (Verified 10/27/18 11:26) diphenhydramine Allergy (Verified 10/27/18:) furosemide [From Lasix] Allergy (Verified 10/27/18:) Review of Systems Constitutional: ABSENT: chills, fever(s), headache(s), weight gain, weight loss Eyes: ABSENT: visual disturbances Ears: ABSENT: hearing changes Cardiovascular: PRESENT: chest pain, dyspnea on exertion. ABSENT: edema, orthropnea, palpitations Respiratory: ABSENT: cough, hemoptysis Gastrointestinal: ABSENT: abdominal pain, constipation, diarrhea, hematemesis, hematochezia, nausea, vomiting Genitourinary: ABSENT: dysuria, hematuria Musculoskeletal: ABSENT: joint swelling Integumentary: ABSENT: rash, wounds Neurological: ABSENT: abnormal gait, abnormal speech, confusion, dizziness, focal weakness, syncope Psychiatric: ABSENT: anxiety, depression, homidical ideation, suicidal ideation Endocrine: ABSENT: cold intolerance, heat intolerance, menstrual abnormalities, polydipsia, polyuria Hematologic/Lymphatic: ABSENT: easy bleeding, easy bruising, lymphadenopathy
[2018-10-29] MEDS: HYDROCODONE/ACETAMINOPHEN 10-325 MG TABLET PO PRN ×2 (04:48→17:18)
[2018-10-29] MEDS: CLONIDINE HCL 0.1 MG TABLET PO SCH ×3 (05:55→21:32)
[2018-10-29] MEDS: BUMETANIDE INJ/PF 1 MG/4 ML SDV IV SCH ×2 (05:55→17:13)
[2018-10-29] MEDS: ISOSORB DINIT/HYDRALAZINE HCL 20-37.5 MG TABLET PO SCH ×3 (05:56→21:33)
[2018-10-29] MEDS: COLCHICINE 0.6 MG TABLET PO SCH ×2 (05:56→17:13)
[2018-10-29] MEDS: METFORMIN HCL 500 MG TABLET PO SCH ×2 (09:55→17:12)
[2018-10-29] MEDS: ASPIRIN 325 MG TABLET, ENT COATED PO SCH (09:55)
[2018-10-29] MEDS: SPIRONOLACTONE 25 MG TABLET PO SCH ×2 (09:55→21:32)
[2018-10-29] MEDS: AMLODIPINE BESYLATE 10 MG TABLET PO SCH (09:55)
[2018-10-29] MEDS: CARVEDILOL 12.5 MG TABLET PO SCH ×2 (09:55→21:32)
[2018-10-29] MEDS: METOLAZONE 5 MG TABLET PO SCH (09:56)
[2018-10-29] MEDS: SITAGLIPTIN PHOSPHATE 50 MG TABLET PO SCH ×2 (09:58→17:37)
[2018-10-29] MEDS: SACUBITRIL/VALSARTAN 49 MG/51 MG TABLET PO SCH ×2 (09:58→21:34)
[2018-10-29] MEDS: CLOBETASOL PROPIONATE 0.05% OINTMENT 15 GM TP SCH (09:58)
[2018-10-29 12:13] LABS: 24 HOUR URINE PROTEIN RESULT 3759 mg/day (42-225); URINE PROTEIN 82.8 mg/dL (<12)
[2018-10-29] MEDS: PREDNISONE 20 MG TABLET PO SCH ×2 (13:17→21:33)
[2018-10-29] MEDS: AZITHROMYCIN 250 MG TABLET PO SCH (17:12)
--- NOTE | 2018-10-29 20:08 | PDOC PROGRESS REPORT ---
Subjective Progress Note for:: 10/29/18 Subjective:: Patient seen by the bedside, Reason For Visit: ACUTE EXACERBATION CHF Physical Exam Vital Signs: Temp Pulse Resp BP Pulse Ox 98.6 F 81 16 160/92 H 100 10/29/18 15:45 10/29/18 15:45 10/29/18 15:45 10/29/18 15:45 10/29/18 15:45 Intake & Output 10/28/18 10/29/18 10/30/18 06:59 06:59 06:59 Intake Total 1020 866 Output Total 9363 6772 1200 Balance -1824 -2265 -334 Weight 90.7 kg 91.2 kg General appearance: PRESENT: no acute distress Eye exam: PRESENT: PERRLA Respiratory exam: PRESENT: clear to auscultation bernardo Cardiovascular exam: PRESENT: +S1, +S2 GI/Abdominal exam: PRESENT: soft Neurological exam: PRESENT: alert Results Laboratory Results: 10/27/18 11:53 10/27/18 11:53 10/28/18 10:46 Ur 24 Hour Volume 4540 Ur Total Protein 24 Hr 3759 H 10/27/18 10/27/18 10/27/18 11:53 11:53 17:00 CK-MB (CK-2) 0.94 Troponin I 0.021 Cancelled NT-Pro-B Natriuret Pep 5690 H 10/27/18 17:30 CK-MB (CK-2) Troponin I 0.026 NT-Pro-B Natriuret Pep Impressions: Chest X-Ray 10/27/18 11:37 IMPRESSION: 1. Cardiomegaly, unchanged finding since the prior study dated 10/13/2018. Prominent pulmonary vasculature appears more pronounced than on the prior study, may be on the basis of vascular congestion. 2. No acute pulmonary consolidation. Assessment & Plan - Diagnosis (1) Acute combined systolic and diastolic ACC/AHA stage C congestive heart failure Is this a current diagnosis for this admission?: Yes Plan: continue treatment (2) Coronary artery disease Qualifiers: Coronary Disease-Associated Artery/Lesion type: [place] artery [place] vs. transplanted heart: [place] heart Associated angina: without angina Qualified Code(s): I25.10 - Atherosclerotic heart disease of [place] coronary artery without angina pectoris Is this a current diagnosis for this admission?: Yes (3) Diabetes mellitus type 2 in obese Is this a current diagnosis for this admission?: Yes (4) HLD (hyperlipidemia) Qualifiers: Hyperlipidemia type: other hyperlipidemia Is this a current diagnosis for this admission?: Yes
--- NOTE | 2018-10-29 20:26 | XCELERA REPORT ---
[address] [address] Transthoracic Echocardiogram Report Name: SHARON JERONIMO Age: 48 yrs Gender: Male : 1970 Patient Status: Inpatient Patient Location: [address] [place], [place] [address] Study Date: 10/28/2018 11:25 AM Height: 69 in Weight: 199 lb BSA: 2.1 m2 Procedure: A two-dimensional transthoracic echocardiogram with color flow Doppler was performed. Study Quality: Fair. Reason For Study: Cardiomyopathy / Pericarditis History: Cardiomyopathy / Pericarditis. Ordering Physician: LOYDA MCLAUGHLIN Performed By: Jessi Tay Interpretation Summary The left ventricle is normal in size. There is moderate to severe concentric left ventricular hypertrophy. LV EF is 40% Left ventricular systolic function is moderately reduced. Doppler measurements suggest normal left ventricular diastolic function There is moderate global hypokinesis of the left ventricle. There is no thrombus. No ASD,VSD, or PFO. The right ventricle is not well visualized secondary to technical limitations The right atrium is normal. The left atrium is moderately dilated. There is no evidence of mitral valve prolapse. There is no vegetation seen on the mitral valve. There is no mitral valve stenosis. There is a trace amount of mitral regurgitation There is no aortic valvular vegetation. There is aortic sclerosis without aortic stenosis. There is no aortic valve stenosis There is no LVOT obstruction. There is a mild amount of aortic regurgitation There is no tricuspid stenosis. There is a moderate amount of tricuspid regurgitation There is mild to moderate pulmonary hypertension by echo RVSP is 45 to 50 mm of Hg , with RA mean of 5 to 10. There is no pulmonic valvular stenosis. There is a mild amount of pulmonic regurgitation The aortic root is normal size. The inferior vena cava appeared normal and decreased > 50% with respiration (RAP 5-10 mmHg) There is no pericardial effusion. MMode/2D Measurements & Calculations RVDd: 3.2 cm LVIDd: 5.4 cm FS: 23.7 % Ao root diam: 3.2 cm IVSd: 1.8 cm LVIDs: 4.1 cm EDV(Teich): 142.4 ml Ao root area: 7.9 cm2 LVPWd: 1.9 cm ESV(Teich): 75.6 ml EF(Teich): 46.9 % Doppler Measurements & Calculations MV E max bishnu: MV dec slope: Ao V2 max: AI max bishnu: 115.8 cm/sec 841.7 cm/sec2 143.1 cm/sec 447.5 cm/sec MV A max bishnu: MV dec time: Ao max PG: AI max P.1 mmHg 48.7 cm/sec 0.14 sec 8.2 mmHg AI dec slope: MV E/A: 2.4 147.9 cm/sec2 AI P1/2t: 886.2 msec LV V1 max PG: PA V2 max: TR max bishnu: 2.3 mmHg 99.9 cm/sec 314.7 cm/sec LV V1 max: PA max P.0 mmHg TR max P.3 cm/sec 39.6 mmHg Left Ventricle The left ventricle is normal in size. There is moderate to severe concentric left ventricular hypertrophy. LV EF is 40%. Left ventricular systolic function is moderately reduced. Doppler measurements suggest normal left ventricular diastolic function. There is moderate global hypokinesis of the left ventricle. There is no thrombus. No ASD,VSD, or PFO. Right Ventricle The right ventricle is not well visualized secondary to technical limitations. Atria The right atrium is normal. The left atrium is moderately dilated. Mitral Valve There is no evidence of mitral valve prolapse. There is no vegetation seen on the mitral valve. There is no mitral valve stenosis. There is a trace amount of mitral regurgitation. Aortic Valve There is no aortic valvular vegetation. There is aortic sclerosis without aortic stenosis. There is no aortic valve stenosis. There is no LVOT obstruction. There is a mild amount of aortic regurgitation. Tricuspid Valve There is no tricuspid stenosis. There is a moderate amount of tricuspid regurgitation. There is mild to moderate pulmonary hypertension by echo. RVSP is 45 to 50 mm of Hg , with RA mean of 5 to 10. Pulmonic Valve There is no pulmonic valvular stenosis. There is a mild amount of pulmonic regurgitation. Great Vessels The aortic root is normal size. The inferior vena cava appeared normal and decreased > 50% with respiration (RAP 5-10 mmHg). Effusions There is no pericardial effusion. : LOYDA MCLAUGHLIN > Loyda Mclaughlin
[2018-10-29] MEDS: FAMOTIDINE 20 MG TABLET PO SCH (21:32)
[2018-10-29 21:59] LABS: ABSOLUTE BASOPHILS # (AUTO) 0.1 10^3/uL (0.0-0.2); ABSOLUTE EOSINOPHILS # (AUTO) 0.1 10^3/uL (0.0-0.6); ABSOLUTE LYMPHOCYTES (AUTO) 1.1 10^3/uL (0.5-4.7); ABSOLUTE MONOCYTES (AUTO) 0.3 10^3/uL (0.1-1.4); ABSOLUTE NEUT (AUTO) 3.1 10^3/uL (1.7-8.2); EOSINOPHILS % (AUTO) 2.6 % (0-6); HEMATOCRIT 39.4 % (37.9-51.0); HEMOGLOBIN 13.1 g/dL (13.5-17.0); MEAN CORPUSCULAR HEMOGLOBIN 26.6 pg (27.0-33.4); MEAN CORPUSCULAR HGB CONC 33.3 g/dL (32.0-36.0); MEAN CORPUSCULAR VOLUME 80 fl (80-97); MONOCYTES % (AUTO) 6.7 % (3-13); PLATELET COUNT 368 10^3/uL (150-450); RED BLOOD COUNT 4.93 10^6/uL (4.35-5.55); RED CELL DISTRIBUTION WIDTH 17.9 % (11.5-14.0); SEGMENTED NEUTROPHILS % (AUTO) 65.7 % (42-78); TOTAL CELLS COUNTED % (AUTO) 100 %; WHITE BLOOD COUNT 4.7 10^3/uL (4.0-10.5)
[2018-10-29 22:28] LABS: ALANINE AMINOTRANSFERASE 14 U/L (21-72); ALBUMIN 3.7 g/dL (3.5-5.0); ALKALINE PHOSPHATASE 104 U/L (38-126); ANION GAP 12 (5-19); ASPARTATE AMINO TRANSFERASE 15 U/L (17-59); BILIRUBIN,DIRECT 0.3 mg/dL (0.0-0.4); BILIRUBIN,TOTAL 0.5 mg/dL (0.2-1.3); BLOOD UREA NITROGEN 22 mg/dL (7-20); CALCIUM 9.6 mg/dL (8.4-10.2); CARBON DIOXIDE 33 mmol/L (22-30); CHLORIDE 90 mmol/L (98-107); GLUCOSE 254 mg/dL (75-110); POTASSIUM 3.5 mmol/L (3.6-5.0); SODIUM 134.8 mmol/L (137-145); TOTAL PROTEIN 7.9 g/dL (6.3-8.2)
[2018-10-30] MEDS: HYDROCODONE/ACETAMINOPHEN 10-325 MG TABLET PO PRN ×2 (03:08→16:24)
[2018-10-30] MEDS: CLOBETASOL PROPIONATE 0.05% OINTMENT 15 GM TP SCH ×3 (04:08→22:00)
[2018-10-30] MEDS: BUMETANIDE INJ/PF 1 MG/4 ML SDV IV SCH ×2 (05:09→17:04)
[2018-10-30] MEDS: PREDNISONE 20 MG TABLET PO SCH ×3 (05:10→21:06)
[2018-10-30] MEDS: COLCHICINE 0.6 MG TABLET PO SCH ×2 (05:14→17:04)
[2018-10-30] MEDS: CLONIDINE HCL 0.1 MG TABLET PO SCH ×3 (05:15→21:05)
[2018-10-30] MEDS: ISOSORB DINIT/HYDRALAZINE HCL 20-37.5 MG TABLET PO SCH ×4 (05:16→21:05)
[2018-10-30] MEDS ORDERED: 1/2 NORMAL SALINE 1,000 ML IV PRN (09:37)
[2018-10-30] MEDS: SACUBITRIL/VALSARTAN 49 MG/51 MG TABLET PO SCH ×2 (09:52→21:06)
[2018-10-30] MEDS: FAMOTIDINE 20 MG TABLET PO SCH ×2 (09:52→21:06)
[2018-10-30] MEDS: METFORMIN HCL 500 MG TABLET PO SCH (09:52)
[2018-10-30] MEDS: SPIRONOLACTONE 25 MG TABLET PO SCH ×2 (09:52→21:05)
[2018-10-30] MEDS: SITAGLIPTIN PHOSPHATE 50 MG TABLET PO SCH ×2 (09:52→17:05)
[2018-10-30] MEDS: ASPIRIN 325 MG TABLET, ENT COATED PO SCH (09:52)
[2018-10-30] MEDS: CARVEDILOL 12.5 MG TABLET PO SCH ×2 (09:52→21:05)
[2018-10-30] MEDS: AMLODIPINE BESYLATE 10 MG TABLET PO SCH (09:52)
[2018-10-30] MEDS: METOLAZONE 5 MG TABLET PO SCH (09:53)
[2018-10-30] MEDS ORDERED: HYDROCORTISONE SOD SUCCINATE INJ/PF 100 MG/2 ML SDV IV PRN (13:12)
--- NOTE | 2018-10-30 14:49 | RADIOLOGY REPORT (SQ) ---
EXAM DESCRIPTION: CT CHEST WITH COMPLETED DATE/TIME: 10/30/2018 1:54 pm REASON FOR STUDY: Pleuritic rishi pain. COMPARISON: 09/28/2018 TECHNIQUE: CT scan of the chest performed using helical scanning technique with dynamic intravenous contrast injection. Images reviewed with lung, soft tissue and bone windows. Reconstructed coronal and sagittal MPR and MIP images reviewed. All images stored on PACS. All CT scanners at this facility use dose modulation, iterative reconstruction, and/or weight based d osing when appropriate to reduce radiation dose to as low as reasonably achievable (ALARA). [facility]: Dose Right [facility]: CareDose [facility]: Dose Right [facility]: Teradose 4D [facility]: [place] CONTRAST TYPE AND DOSE: contrast/concentration: Isovue 350.00 mg/ml; Total Contrast Delivered: 80.0 ml; Total Saline Delivered: 55.0 ml RENAL FUNCTION: BUN = 22, creatinine = 1.29 RADIATION DOSE: CT Rad equipment meets quality standard of care and radiation dose reduction techniq ues were employed. CTDIvol: 14.4 mGy. DLP: 540 mGy-cm. . LIMITATIONS: None. FINDINGS: LUNGS AND PLEURA: There is subtle ground-glass opacity in the right lower lobe, not signif icantly changed from prior examination. The lungs are otherwise clear. The pleural is unremarkable. No effusion, pneumothorax or other concerning lesions. HILAR AND MEDIASTINAL STRUCTURES: No identified masses or abnormal nodes. HEART AND VASCULAR STRUCTURES: Cardiomegaly is present and unchanged. The pulmonary artery is mildly enlarged measuring 3.5 cm in maximum diameter, stable from prior exam. HARDWARE: Sternotomy wires are present. UPPER ABDOMEN: Stable small hypodensities in the caudate lobe and dome of the liver. THYROID AND OTHER SOFT TISSUES: No masses. No adenopathy. BONES: No significant finding. OTHER: No other significant finding. IMPRESSION: 1. Subtle ground-glass opacity in the right lower lobe. This is in a similar distribut ion as prior exam of 09/28/2018 and may represent early pulmonary edema, infection, or scarring. 2. Mildly enlarged pulmonary artery. Recommend correlation with any history or signs of pulmonary a rtery hypertension. TECHNICAL DOCUMENTATION: JOB ID: [id number] Quality ID # [id number]: Final reports with documentation of one or more dose reduction techniques (e.g., Au tomated exposure control, adjustment of the mA and/or kV according to patient size, use of iterative reconstruction technique) 2010 [employer]- All Rights Reserved Reading location - IP/workstation name: [email or web address]
[2018-10-30] MEDS: AZITHROMYCIN 250 MG TABLET PO SCH (17:03)
--- NOTE | 2018-10-30 22:14 | PDOC PROGRESS REPORT ---
Subjective Progress Note for:: 10/30/18 Subjective:: Patient was seen by Dr. Fernandes, cardiology, 2D echo demonstrated EF 40%, he continues to complain of chest pressure Reason For Visit: ACUTE EXACERBATION CHF Physical Exam Vital Signs: Temp Pulse Resp BP Pulse Ox 98.4 F 81 20 139/78 H 96 10/30/18 15:47 10/30/18 15:47 10/30/18 15:47 10/30/18 15:47 10/30/18 15:47 Intake & Output 10/29/18 10/30/18 10/31/18 06:59 06:59 06:59 Intake Total 1020 1166 892 Output Total 3375 1200 650 Balance -2355 -34 242 Weight 91.2 kg 114.5 kg General appearance: PRESENT: mild distress Head exam: PRESENT: atraumatic Mouth exam: PRESENT: moist, tongue midline Neck exam: PRESENT: full ROM Respiratory exam: PRESENT: crackles Cardiovascular exam: PRESENT: irregular rhythm, RRR, +S1, +S2 Vascular exam: PRESENT: normal capillary refill GI/Abdominal exam: PRESENT: normal bowel sounds, soft Rectal exam: PRESENT: deferred Neurological exam: PRESENT: alert, CN II-XII grossly intact Psychiatric exam: PRESENT: appropriate affect, normal mood Skin exam: PRESENT: dry, intact, warm. ABSENT: cyanosis, rash Results Laboratory Results: 10/29/18 21:51 10/29/18 21:51 10/29/18 21:51 Sodium 134.8 L Potassium 3.5 L Chloride 90 L Carbon Dioxide 33 H Anion Gap 12 BUN 22 H Creatinine 1.29 H Est GFR ( Amer) > 60 Est GFR (Non-Af Amer) > 60 Glucose 254 H Calcium 9.6 Total Bilirubin 0.5 AST 15 L ALT 14 L Alkaline Phosphatase 104 Total Protein 7.9 Albumin 3.7 10/27/18 10/27/18 10/27/18 11:53 11:53 17:00 CK-MB (CK-2) 0.94 Troponin I 0.021 Cancelled NT-Pro-B Natriuret Pep 5690 H 10/27/18 17:30 CK-MB (CK-2) Troponin I 0.026 NT-Pro-B Natriuret Pep Impressions: Chest X-Ray 10/27/18 11:37 IMPRESSION: 1. Cardiomegaly, unchanged finding since the prior study dated 10/13/2018. Prominent pulmonary vasculature appears more pronounced than on the prior study, may be on the basis of vascular congestion. 2. No acute pulmonary consolidation. Chest CT 10/30/18 00:00 IMPRESSION: 1. Subtle ground-glass opacity in the right lower lobe. This is in a similar distribution as prior exam of 09/28/2018 and may represent early pulmonary edema, infection, or scarring. 2. Mildly enlarged pulmonary artery. Recommend correlation with any history or signs of pulmonary artery hypertension. Assessment & Plan - Diagnosis (1) Acute combined systolic and diastolic ACC/AHA stage C congestive heart failure Is this a current diagnosis for this admission?: Yes Plan: continue treatment (2) Coronary artery disease Qualifiers: Coronary Disease-Associated Artery/Lesion type: [place] artery [place] vs. transplanted heart: [place] heart Associated angina: without angina Qualified Code(s): I25.10 - Atherosclerotic heart disease of [place] coronary artery wit hout angina pectoris Is this a current diagnosis for this admission?: Yes (3) Diabetes mellitus type 2 in obese Is this a current diagnosis for this admission?: Yes (4) HLD (hyperlipidemia) Qualifiers: Hyperlipidemia type: other hyperlipidemia Is this a current diagnosis for this admission?: Yes (5) Nephrotic range proteinuria Is this a current diagnosis for this admission?: Yes
--- NOTE | 2018-10-30 22:26 | Progress Note ---
Provider Note Provider Note: CARDIOLOGY PROGRESS NOTE by Dr. Loyda Fernandes on 10/30/2018.
[2018-10-31] MEDS ORDERED: HYDROCORTISONE SOD SUCCINATE INJ/PF 100 MG/2 ML SDV IV PRN (06:00)
[2018-10-31] MEDS: BUMETANIDE INJ/PF 1 MG/4 ML SDV IV SCH ×2 (06:20→16:42)
[2018-10-31] MEDS: COLCHICINE 0.6 MG TABLET PO SCH ×2 (06:21→16:42)
[2018-10-31] MEDS: ISOSORB DINIT/HYDRALAZINE HCL 20-37.5 MG TABLET PO SCH ×2 (06:21→13:53)
[2018-10-31] MEDS: CLONIDINE HCL 0.1 MG TABLET PO SCH ×2 (06:21→13:53)
[2018-10-31] MEDS: PREDNISONE 20 MG TABLET PO SCH ×2 (06:21→13:53)
[2018-10-31] MEDS: AMLODIPINE BESYLATE 10 MG TABLET PO SCH (09:09)
[2018-10-31] MEDS: FAMOTIDINE 20 MG TABLET PO SCH (09:09)
[2018-10-31] MEDS: SITAGLIPTIN PHOSPHATE 50 MG TABLET PO SCH ×2 (09:09→16:42)
[2018-10-31] MEDS: CARVEDILOL 12.5 MG TABLET PO SCH (09:09)
[2018-10-31] MEDS: ASPIRIN 325 MG TABLET, ENT COATED PO SCH (09:09)
[2018-10-31] MEDS: SACUBITRIL/VALSARTAN 49 MG/51 MG TABLET PO SCH (09:09)
[2018-10-31] MEDS: SPIRONOLACTONE 25 MG TABLET PO SCH (09:09)
[2018-10-31] MEDS: METOLAZONE 5 MG TABLET PO SCH (09:10)
[2018-10-31] MEDS: CLOBETASOL PROPIONATE 0.05% OINTMENT 15 GM TP SCH (09:10)
[2018-10-31] MEDS: AZITHROMYCIN 250 MG TABLET PO SCH (16:42)
[2018-10-31 17:10] VITALS: BP 160/98
--- NOTE | 2018-10-31 19:20 | PDOC DISCHARGE SUMMARY ---
General - Admit/Disc Date/PCP Admission Date/Primary Care Provider: 10/29/18 11:19 KARTHIK RICCI MD Discharge Date: 10/31/18 - Discharge Diagnosis (1) Acute combined systolic and diastolic ACC/AHA stage C congestive heart failure Is this a current diagnosis for this admission?: Yes (2) Nephrotic range proteinuria Is this a current diagnosis for this admission?: Yes (3) Psoriasis Is this a current diagnosis for this admission?: Yes - Additional Information Discharge Diet: Cardiac, Diabetic Discharge Activity: Activity As Tolerated, Balance Activity w/Rest Home Medications: Amlodipine Besylate [Norvasc 10 mg Tablet] 10 mg PO DAILY 10/13/18 Apremilast [Otezla] 30 mg PO BID 10/13/18 Aspirin [Ecotrin 325 mg EC Tablet] 325 mg PO DAILY 10/13/18 Carvedilol [Coreg 12.5 mg Tablet] 12.5 mg PO Q12 10/13/18 Clobetasol Propionate [Temovate 0.05% Cream 15 gm] 1 applic TOP BID 10/13/18 Clonidine HCl [Catapres 0.1 mg Tablet] 0.1 mg PO Q8 10/13/18 Hydrocodone/Acetaminophen [Granby 10-325 Tablet] 1 tab PO Q8HP PRN 10/13/18 Isosorb Dinit/Hydralazine HCl [Bidil 20-37.5 mg Tablet] 1 tab PO Q8 10/13/18 Metolazone [Zaroxolyn 5 mg Tablet] 2.5 mg PO DAILY 10/13/18 Sacubitril/Valsartan [Entresto 49 mg/51 mg Tablet] 1 tab PO Q12 10/13/18 Sitagliptin Phos/Metformin HCl [Janumet 50-1,000 mg Tablet] 1 tab PO BID 10/13/18 Spironolactone [Aldactone 25 mg Tablet] 25 mg PO Q12 10/13/18 Torsemide [Demadex 20 mg Tablet] 20 mg PO DAILYP PRN 10/13/18 Azithromycin [Zithromax 250 mg Tablet] 250 mg PO QPM #7 tablet 10/14/18 History of Present Illness History of Present Illness: SHARON JERONIMO is a 48 year old male, He has a history of chronic systolic and diastolic heart failure, history of severe psoriasis, he came the emergency room for evaluation of chest pain, shortness of breath the emergency room it was felt that he was in CHF., Chest x-ray showed cardiomegaly with PVCs Hospital Course Hospital Course: Patient was admitted for the management of acute CHF, he presented with acute CHF picture. 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 The CT chest demonstrated subacute groundglass opacity in the right lower lobe not significantly changed from prior examination.A 2D echo was done, it demonstrated normal-sized left ventricle, moderate to severe concentric left ventricular hypertrophy, ejection fraction 40%, There was also pulmonary hypertension Physical Exam Vital Signs: Temp Pulse Resp BP Pulse Ox 98.6 F 90 16 160/98 H 99 10/31/18 17:03 10/31/18 17:03 10/31/18 17:03 10/31/18 17:03 10/31/18 17:03 Intake & Output 10/30/18 10/31/18 11/01/18 06:59 06:59 06:59 Intake Total 1166 1872 Output Total 1200 960 Balance -34 912 Weight 114.5 kg 113.8 kg General appearance: PRESENT: no acute distress Eye exam: PRESENT: PERRLA Respiratory exam: PRESENT: clear to auscultation bernardo Cardiovascular exam: PRESENT: +S1, +S2 GI/Abdominal exam: PRESENT: soft Neurological exam: PRESENT: alert, CN II-XII grossly intact Results Laboratory Results: 10/29/18 21:51 10/29/18 21:51 10/27/18 10/27/18 10/27/18 11:53 11:53 17:00 CK-MB (CK-2) 0.94 Troponin I 0.021 Cancelled NT-Pro-B Natriuret Pep 5690 H 10/27/18 17:30 CK-MB (CK-2) Troponin I 0.026 NT-Pro-B Natriuret Pep Impressions: Chest X-Ray 10/27/18 11:37 IMPRESSION: 1. Cardiomegaly, unchanged finding since the prior study dated 10/13/2018. Prominent pulmonary vasculature appears more pronounced than on the prior study, may be on the basis of vascular congestion. 2. No acute pulmonary consolidation. Chest CT 10/30/18 00:00 IMPRESSION: 1. Subtle ground-glass opacity in the right lower lobe. This is in a similar distribution as prior exam of 09/28/2018 and may represent early pulmonary edema, infection, or scarring. 2. Mildly enlarged pulmonary artery. Recommend correlation with any history or signs of pulmonary artery hypertension. Qualifiers - * PATIENT BEING DISCHARGED WITH ANY OF THE FOLLOWING DIAGNOSIS: No VTE patient discharged on overlapping Therapy?: Yes Acute Heart Failure Is this a Heart Failure Patient?: No
== END 2018-10-31 17:30 | disposition home or self-care (01) | DRG 293 ==
LOC: ER 11:23 → EH 14:49 → INTOOBSV 14:49 → 4S 18:03 → OBSVTOIN 10-29 11:19
PROVIDERS: ADMIT Internal Medicine; ATTEND Internal Medicine
DX: I11.0 Hypertensive heart disease with heart failure (principal); I50.43 Acute on chronic combined systolic (congestive) and diastolic (congestive) heart failure; L40.9 Psoriasis, unspecified; I51.7 Cardiomegaly; I49.3 Ventricular premature depolarization; I25.10 Atherosclerotic heart disease of native coronary artery without angina pectoris; E11.51 Type 2 diabetes mellitus with diabetic peripheral angiopathy without gangrene; E11.65 Type 2 diabetes mellitus with hyperglycemia; E78.5 Hyperlipidemia, unspecified; R80.9 Proteinuria, unspecified; K21.9 Gastro-esophageal reflux disease without esophagitis; M19.90 Unspecified osteoarthritis, unspecified site; I27.20 Pulmonary hypertension, unspecified; Z79.84 Long term (current) use of oral hypoglycemic drugs; Z82.3 Family history of stroke; Z86.718 Personal history of other venous thrombosis and embolism; Z83.3 Family history of diabetes mellitus; Z82.49 Family history of ischemic heart disease and other diseases of the circulatory system; Z79.82 Long term (current) use of aspirin; Z79.899 Other long term (current) drug therapy; Z88.8 Allergy status to other drugs, medicaments and biological substances; Z88.6 Allergy status to analgesic agent; Z91.013 Allergy to seafood; Z95.820 Peripheral vascular angioplasty status with implants and grafts
CPT/HCPCS: 36415; 71046; 71260; 80053; 81001; 82553; 82962; 83690; 83880; 84156; 84484; 85025; 85652; 93005; 93010; 93306; 96374; 99285; G0378; J1720; J3490; J7512

== ENCOUNTER 2018-11-14 20:59 | Emergency (ER) | payer MEDICARE, MEDICAID ==
--- NOTE | 2018-11-15 00:10 | ER Document Report ---
ED Medical Screen (RME) - General Chief Complaint: Chest Pain Stated Complaint: CHEST PAIN Time Seen by Provider: 11/15/18 00:03 Primary Care Provider: KARTHIK RICCI MD [Primary Care Provider] - Follow up as needed TRAVEL OUTSIDE OF THE [place] IN LAST 30 DAYS: No - HPI Notes: 11/15/18 00:07 Patient is a 48-year-old male with a history of hypertension, congestive heart failure, GA x1, high cholesterol, A. fib who presents to the emergency department with a chief complaint of chest pain. He states that he developed chest pain 2 days ago that has gradually gotten worse. Patient states the chest pain feels like a constant heaviness. Patient states that it feels like he has fluid in his lungs. Patient reports increased swelling to his legs. Patient denies use of blood thinners. Patient did take 325 mg of aspirin earlier today. - Related Data Allergies/Adverse Reactions: shellfish derived Allergy (Severe, Verified 10/27/18 11:26) morphine [Morphine] Allergy (Mild, Verified 10/27/18 11:26) Shellfish * [Shellfish] Allergy (Mild, Verified 10/27/18 11:26) Anaphylaxis cyclobenzaprine [From Flexeril] Allergy (Verified 10/27/18 11:26) diazepam [From Valium] Allergy (Verified 10/27/18 11:26) diphenhydramine Allergy (Verified 10/27/18 11:26) furosemide [From Lasix] Allergy (Verified 10/27/18 11:26) Past Medical History - Social History Family history: CAD - Past Medical History Cardiac Medical History: Reports: Hx Congestive Heart Failure, Hx Coronary Artery Disease, Hx DVT - right leg, Hx Heart Attack, Hx Hypercholesterolemia, Hx Hypertension, Hx Peripheral Vascular Disease, Hx Heart Murmur Pulmonary Medical History: Reports: Hx Pneumonia Denies: Hx Asthma, Hx COPD, Hx Tuberculosis Neurological Medical History: Reports: Hx Cerebrovascular Accident - Lt sided weakness-2018, Hx Migraine, Hx Seizures Endocrine Medical History: Reports: Hx Diabetes Mellitus Type 1, Hx Diabetes Mellitus Type 2. Denies: Hx Hyperthyroidism, Hx Hypothyroidism Renal/ Medical History: Reports: Hx Kidney Stones. Denies: Hx Peritoneal Dialysis GI Medical History: Reports: Hx Gastroesophageal Reflux Disease. Denies: Hx Cirrhosis, Hx Hepatitis Musculoskeltal Medical History: Reports Hx Arthritis, Reports Hx Muscle Weakness - Left Skin Medical History: Reports Hx Eczema, Denies Hx MRSA, Reports Hx Psoriasis Psychiatric Medical History: Denies: Hx Depression, Hx Schizoaffective Disorder Infectious Medical History: Denies: Hx Hepatitis, Hx MRSA Past Surgical History: Reports: Hx Cardiac Catheterization, Hx Cardiac Surgery - VSD having four previous surgeries as a child; heart valve defect, Hx Open Heart Surgery - VSD having five previous surgeries as a child; heart valve defect, Hx Vascular Surgery - Stents in right leg, Other - 4 separate operations for ventricular septal defect as a child.. Denies: Hx Pacemaker - Immunizations Immunizations up to date: Yes Hx Diphtheria, Pertussis, Tetanus Vaccination: Yes History of Influenza Vaccine for 03/2017 - 08/2017 Season: Yes Influenza Administration Date for 03/2017 - 08/2017 Season: 05/10/17 Physical Exam - Vital signs Vitals: Temp Pulse Resp BP Pulse Ox 98.5 F 43 L 20 162/131 H 96 11/14/18 21:22 11/14/18 21:22 11/14/18 21:22 11/14/18 21:22 11/14/18 21:22 - Respiratory Respiratory status: No respiratory distress Chest status: Tender Breath sounds: Normal Chest palpation: Normal - Cardiovascular Rhythm: Other - Irregular Course - Re-evaluation Re-evalutation: 11/15/18 00:10 Due to patient's history I have placed a cardiac workup in triage. She is hypertensive with a blood pressure 176/114. He is in no acute distress at this time. - Vital Signs Vital signs: Temp Pulse Resp BP Pulse Ox 98.5 F 43 L 20 162/131 H 96 11/14/18 21:22 11/14/18 21:22 11/14/18 21:22 11/14/18 21:22 11/14/18 21:22 Doctor's Discharge - Discharge Referrals: KARTHIK RICCI MD [Primary Care Provider] - Follow up as needed
--- NOTE | 2018-11-15 01:31 | RADIOLOGY REPORT (SQ) ---
EXAM DESCRIPTION: XR CHEST 2 VIEWS COMPLETED DATE/TME: 11/15/2018 00:05 CLINICAL HISTORY: 48 years, Male, chest pain, shortness of breath COMPARISON: 10/27/2018 NUMBER OF VIEWS: Two TECHNIQUE: Two views of the chest LIMITATIONS: None. FINDINGS: There is mild pulmonary vascular congestion. The heart is enlarged. There is no pneumothorax or pleural effusion. The bones are unchanged. Median sternotomy wires are noted. IMPRESSION: Mild pulmonary vascular congestion copyright 2010 [employer]- All Rights Reserved
[2018-11-15 01:46] LABS: ABSOLUTE EOSINOPHILS # (AUTO) 0.1 10^3/uL (0.0-0.6); ABSOLUTE LYMPHOCYTES (AUTO) 1.2 10^3/uL (0.5-4.7); ABSOLUTE MONOCYTES (AUTO) 0.3 10^3/uL (0.1-1.4); ABSOLUTE NEUT (AUTO) 3.2 10^3/uL (1.7-8.2); BASOPHILS % (AUTO) 0.8 % (0-2); EOSINOPHILS % (AUTO) 1.2 % (0-6); HEMATOCRIT 39.5 % (37.9-51.0); HEMOGLOBIN 12.9 g/dL (13.5-17.0); LYMPHOCYTES % (AUTO) 24.5 % (13-45); MEAN CORPUSCULAR HEMOGLOBIN 26.7 pg (27.0-33.4); MEAN CORPUSCULAR HGB CONC 32.7 g/dL (32.0-36.0); MEAN CORPUSCULAR VOLUME 82 fl (80-97); MONOCYTES % (AUTO) 5.8 % (3-13); PLATELET COUNT 268 10^3/uL (150-450); RED BLOOD COUNT 4.83 10^6/uL (4.35-5.55); RED CELL DISTRIBUTION WIDTH 17.9 % (11.5-14.0); SEGMENTED NEUTROPHILS % (AUTO) 67.7 % (42-78); TOTAL CELLS COUNTED % (AUTO) 100 %; WHITE BLOOD COUNT 4.7 10^3/uL (4.0-10.5)
[2018-11-15 02:02] LABS: ALANINE AMINOTRANSFERASE 15 U/L (21-72); ALBUMIN 3.9 g/dL (3.5-5.0); ALKALINE PHOSPHATASE 119 U/L (38-126); ANION GAP 9 (5-19); ASPARTATE AMINO TRANSFERASE 16 U/L (17-59); BILIRUBIN,DIRECT 0.3 mg/dL (0.0-0.4); BILIRUBIN,TOTAL 0.6 mg/dL (0.2-1.3); BLOOD UREA NITROGEN 18 mg/dL (7-20); CALCIUM 9.4 mg/dL (8.4-10.2); CARBON DIOXIDE 31 mmol/L (22-30); CHLORIDE 96 mmol/L (98-107); POTASSIUM 3.9 mmol/L (3.6-5.0); TOTAL PROTEIN 7.9 g/dL (6.3-8.2)
--- NOTE | 2018-11-15 02:09 | ER Document Report ---
ED General - General Chief Complaint: Chest Pain Stated Complaint: CHEST PAIN Time Seen by Provider: 11/15/18 00:03 Primary Care Provider: KARTHIK RICCI MD [Primary Care Provider] - Follow up as needed TRAVEL OUTSIDE OF THE [place] IN LAST 30 DAYS: No - Related Data Allergies/Adverse Reactions: shellfish derived Allergy (Severe, Verified 10/27/18 11:26) morphine [Morphine] Allergy (Mild, Verified 10/27/18 11:26) Shellfish * [Shellfish] Allergy (Mild, Verified 10/27/18 11:26) Anaphylaxis cyclobenzaprine [From Flexeril] Allergy (Verified 10/27/18 11:26) diazepam [From Valium] Allergy (Verified 10/27/18 11:26) diphenhydramine Allergy (Verified 10/27/18 11:26) furosemide [From Lasix] Allergy (Verified 10/27/18 11:26) Past Medical History - Social History Family History: Arthritis, CAD, CVA, DM, Hyperlipidemia, Hypertension, Malignancy, Other - Past Medical History Cardiac Medical History: Reports: Hx Congestive Heart Failure, Hx Coronary Artery Disease, Hx DVT - right leg, Hx Heart Attack, Hx Hypercholesterolemia, Hx Hypertension, Hx Peripheral Vascular Disease, Hx Heart Murmur Pulmonary Medical History: Reports: Hx Pneumonia Denies: Hx Asthma, Hx COPD, Hx Tuberculosis Neurological Medical History: Reports: Hx Cerebrovascular Accident - Lt sided weakness-2017, Hx Migraine, Hx Seizures Endocrine Medical History: Reports: Hx Diabetes Mellitus Type 1, Hx Diabetes Mellitus Type 2. Denies: Hx Hyperthyroidism, Hx Hypothyroidism Renal/ Medical History: Reports: Hx Kidney Stones. Denies: Hx Peritoneal Dialysis GI Medical History: Reports: Hx Gastroesophageal Reflux Disease. Denies: Hx Cirrhosis, Hx Hepatitis Musculoskeletal Medical History: Reports Hx Arthritis, Reports Hx Muscle W eakness - Left Skin Medical History: Reports Hx Eczema, Denies Hx MRSA, Reports Hx Psoriasis Psychiatric Medical History: Denies: Hx Depression, Hx Schizoaffective Disorder Infectious Medical History: Denies: Hx Hepatitis, Hx MRSA Past Surgical History: Reports: Hx Cardiac Catheterization, Hx Cardiac Surgery - VSD having four previous surgeries as a child; heart valve defect, Hx Open Heart Surgery - VSD having five previous surgeries as a child; heart valve defect, Hx Vascular Surgery - Stents in right leg, Other - 4 separate operations for ventricular septal defect as a child.. Denies: Hx Pacemaker - Immunizations Immunizations up to date: Yes Hx Diphtheria, Pertussis, Tetanus Vaccination: Yes Hx Pneumococcal Vaccination: 03/24/18 Physical Exam - Vital signs Vitals: Temp Pulse Resp BP Pulse Ox 98.5 F 43 L 20 162/131 H 96 11/14/18 21:22 11/14/18 21:22 11/14/18 21:22 11/14/18 21:22 11/14/18 21:22 Course - Vital Signs Vital signs: Temp Pulse Resp BP Pulse Ox 98.5 F 43 L 20 162/131 H 96 11/14/18 21:22 11/14/18 21:22 11/14/18 21:22 11/14/18 21:22 11/14/18 21:22 - Laboratory Result Diagrams: 11/15/18 01:33 11/15/18 01:33 Laboratory results interpreted by me: 11/15/18 01:33 Hgb 12.9 L MCH 26.7 L RDW 17.9 H - EKG Interpretation by Me Additional EKG results interpreted by me: 11/15/18 02:08 EKG is reviewed and interpreted by me. EKG shows normal sinus rhythm with a rate of [address] segment elevation. Some T wave inversions in leads aVL and V6 and V5. VA interval interval, QRS duration are within normal range. QT interval slightly prolonged. No changes in comparison to previous EKG from October 27, 2018. Discharge - Discharge Referrals: KARTHIK RICCI MD [Primary Care Provider] - Follow up as needed
[2018-11-15 02:11] LABS: GLUCOSE 455 mg/dL (75-110)
[2018-11-15 02:15] LABS: TROPONIN I 0.02 ng/mL
--- NOTE | 2018-11-15 03:17 | ER Document Report ---
ED General - General Chief Complaint: Chest Pain Stated Complaint: CHEST PAIN Time Seen by Provider: 11/15/18 00:03 Primary Care Provider: KARTHIK RCICI MD [Primary Care Provider] - 11/18/18 Notes: Patient is a 48-year-old male who presents with complaint of chest pain. The pain is worse when he takes a deep breath. Is also worse when he lays on his side. Patient says pains been ongoing for few days. He has been admitted several times in the past for chest pain. He has a history of CHF. He has a history of coronary disease. He is followed by Dr. Ricci. He was just recently admitted to the hospital a few weeks ago and was seen by cardiology and had echocardiogram done which was unchanged comparison to his previous ones. He denies any increasing edema. His blood pressure is currently high but admits that he has not taken his blood pressure medications which he has been in the ER. Patient has no other complaints at this time. TRAVEL OUTSIDE OF THE [place] IN LAST 30 DAYS: No - Related Data Allergies/Adverse Reactions: shellfish derived Allergy (Severe, Verified 10/27/18 11:26) morphine [Morphine] Allergy (Mild, Verified 10/27/18 11:26) Shellfish * [Shellfish] Allergy (Mild, Verified 10/27/18 11:26) Anaphylaxis cyclobenzaprine [From Flexeril] Allergy (Verified 10/27/18 11:26) diazepam [From Valium] Allergy (Verified 10/27/18 11:26) diphenhydramine Allergy (Verified 10/27/18 11:26) furosemide [From Lasix] Allergy (Verified 10/27/18 11:26) Past Medical History - Social History Smoking Status: Unknown if Ever Smoked Frequency of alcohol use: None Drug Abuse: None Family History: Arthritis, CAD, CVA, DM, Hyperlipidemia, Hypertension, Malignancy, Other - Past Medical History Cardiac Medical History: Reports: Hx Congestive Heart Failure, Hx Coronary Artery Disease, Hx DVT - right leg, Hx Heart Attack, Hx Hypercholesterolemia, Hx Hypertension, Hx Peripheral Vascular Disease, Hx Heart Murmur Pulmonary Medical History: Reports: Hx Pneumonia Denies: Hx Asthma, Hx COPD, Hx Tuberculosis Neurological Medical History: Reports: Hx Cerebrovascular Accident - Lt sided we akness-2018, Hx Migraine, Hx Seizures Endocrine Medical History: Reports: Hx Diabetes Mellitus Type 1, Hx Diabetes Mellitus Type 2. Denies: Hx Hyperthyroidism, Hx Hypothyroidism Renal/ Medical History: Reports: Hx Kidney Stones. Denies: Hx Peritoneal Dialysis GI Medical History: Reports: Hx Gastroesophageal Reflux Disease. Denies: Hx Cirrhosis, Hx Hepatitis Musculoskeletal Medical History: Reports Hx Arthritis, Reports Hx Muscle Weakness - Left Skin Medical History: Reports Hx Eczema, Denies Hx MRSA, Reports Hx Psoriasis Psychiatric Medical History: Denies: Hx Depression, Hx Schizoaffective Disorder Infectious Medical History: Denies: Hx Hepatitis, Hx MRSA Past Surgical History: Reports: Hx Cardiac Catheterization, Hx Cardiac Surgery - VSD having four previous surgeries as a child; heart valve defect, Hx Open Heart Surgery - VSD having five previous surgeries as a child; heart valve defect, Hx Vascular Surgery - Stents in right leg, Other - 4 separate operations for ventricular septal defect as a child.. Denies: Hx Pacemaker - Immunizations Immunizations up to date: Yes Hx Diphtheria, Pertussis, Tetanus Vaccination: Yes Hx Pneumococcal Vaccination: 03/24/18 Review of Systems - Review of Systems Notes: My Normal Review Basic REVIEW OF SYSTEMS: CONSTITUTIONAL : Denies fever, chills, or sweats. Denies recent illness. EENT: Denies eye, ear, throat, or mouth pain or symptoms. Denies nasal or sinus congestion. CARDIOVASCULAR: Chest pain RESPIRATORY: Denies cough, cold, or chest congestion. Denies shortness of breath, difficulty breathing, or wheezing. GASTROINTESTINAL: Denies abdominal pain. Denies nausea, vomiting, or diarrhea. Denies constipation. Last BM: MUSCULOSKELETAL: Denies neck or back pain or joint pain or swelling. SKIN: Denies rash or skin lesions. NEUROLOGICAL: Denies altered mental status or loss of consciousness. Denies headache. Denies weakness or paralysis or loss of use of either side. Denies problems with gait or speech. Denies sensory or motor loss. ALL OTHER SYSTEMS REVIEWED AND NEGATIVE. Physical Exam - Vital signs Vitals: Temp Pulse Resp BP Pulse Ox 98.5 F 43 L 20 162/131 H 96 11/14/18 21:22 11/14/18 21:22 11/14/18 21:22 11/14/18 21:22 11/14/18 21:22 - Notes Notes: General Appearance: Well nourished, alert, cooperative, no acute distress, no obvious discomfort. Well-appearing. Vitals: reviewed, See vital signs table. Head: no swelling or tenderness to the head Eyes: PERRL, EOMI, Conjuctiva clear Mouth: No decreasd moisture Lungs: No wheezing, No rales, No rhonci, No accessory muscle use, good air exchange bilaterally. Heart: Normal rate, Regular rythm, No murmur, no rub Abdomen: Normal BS, soft, No rigidity, No abdominal tenderness, No guarding, no rebound, no abdominal masses, no organomegaly Extremities: strength 5/5 in all extremities, good pulses in all extremities, no swelling or tenderness in the extremities, no edema. Skin: warm, dry, appropriate color, no rash Neuro: speech clear, oriented x 3, normal affect, responds appropriately to questions. Course - Re-evaluation Re-evalutation: 11/15/18 04:44 Patient's blood sugar was elevated therefore did give a dose of insulin. Patient says he usually takes NovoLog 70/30 but did not take anything she is been at the ER. Patient's blood pressure was also high and admits he did not ta ke any of his evening time medications because he is been waiting in the ER. Patient's pain is very pleuritic. It is worse when he takes a deep breath. Is worse with certain movements as well. Does not seem cardiac in etiology. He does have cardiac risk factors. I did speak with Dr. Ricci as he knows patient very well and has met him several times in the past. I did explain to Dr. odell previous records as well as well as patient's recent admission in September where he had very similar pain and work-up was negative. I asked Dr. Ricci of he had any concerns about this patient or if she would be okay with outpatient follow-up after a delta troponin. says that he is okay with patient follow-up in office this coming week if his delta troponin is negative. Patient's delta troponin is negative. He looks well. He is in no distress. I feel he safe to be discharged home. Informed him to please continue take his medications. I did give him his dosages of his nighttime medicines here. Patient to return to ER immediately if he has worsening chest pain, difficulty breathing, fevers, or if he feels that he is worsening any way. Patient agrees with plan will be discharged home. Dictation of this chart was performed using voice recognition software; therefore, there may be some unintended grammatical errors. - Vital Signs Vital signs: Temp Pulse Resp BP Pulse Ox 98.5 F 43 L 20 162/131 H 96 11/14/18 21:22 11/14/18 21:22 11/14/18 21:22 11/14/18 21:22 11/14/18 21:22 - Laboratory Result Diagrams: 11/15/18 01:33 11/15/18 01:33 Laboratory results interpreted by me: 11/15/18 11/15/18 11/15/18 01:33 01:33 01:33 Hgb 12.9 L MCH 26.7 L RDW 17.9 H Sodium 136.0 L Chloride 96 L Carbon Dioxide 31 H Glucose 455 H* AST 16 L ALT 15 L NT-Pro-B Natriuret Pep 2380 H - EKG Interpretation by Me Additional EKG results interpreted by me: 11/15/18 03:16 EKG is reviewed and interpreted by me. EKG shows sinus rhythm with a rate of [address] segment elevation or depression. Patient does have T wave inversions in leads I aVL of V5 and V6. These are unchanged comparison to previous EKG from October 27, 2018. SC interval, QRS duration are within normal range. QTc interval is prolonged. Discharge - Discharge Clinical Impression: Hyperglycemia Chest pain Qualifiers: Chest pain type: unspecified Qualified Code(s): R07.9 - Chest pain, unspecified Hypertension Qualifiers: Hypertension type: unspecified Qualified Code(s): I10 - Essential (primary) hypertension Condition: Good Disposition: HOME, SELF-CARE Additional Instructions: Please continue take your medications as prescribed. Please return to the ER if you have worsening pain, difficulty breathing, fevers, or feel unwell. Please call Dr. Ricci's office on Saturday to make a close follow-up appointment. Referrals: KARTHIK RICCI MD [Primary Care Provider] - 11/18/18
[2018-11-15] MEDS ORDERED: INSULIN REG, HUMAN 100 UNIT/ML 3 ML VIAL (PYX) SUBCUT ONE (03:23)
[2018-11-15] MEDS ORDERED: SACUBITRIL/VALSARTAN 49 MG/51 MG TABLET PO ONE (03:33)
[2018-11-15] MEDS ORDERED: SPIRONOLACTONE 25 MG TABLET PO ONE (03:33)
[2018-11-15] MEDS ORDERED: CLONIDINE HCL 0.1 MG TABLET PO ONE (03:34)
[2018-11-15] MEDS ORDERED: ISOSORB DINIT/HYDRALAZINE HCL 20-37.5 MG TABLET PO ONE (03:34)
[2018-11-15] MEDS ORDERED: CARVEDILOL 12.5 MG TABLET PO ONE (03:34)
[2018-11-15 06:23] VITALS: BP 171/114
--- NOTE | 2018-11-15 12:36 | EKG REPORT ---
SEVERITY:- ABNORMAL ECG - SINUS RHYTHM LEFT ATRIAL ABNORMALITY LEFT ANTERIOR FASCICULAR BLOCK ABNORMAL T, CONSIDER ISCHEMIA, LATERAL LEADS BORDERLINE PROLONGED QT INTERVAL : Confirmed by: Jenifer Khan 15-Nov-2018 12:35:59
== END 2018-11-15 06:31 | disposition home or self-care (01) ==
LOC: ER 20:59
DX: E11.65 Type 2 diabetes mellitus with hyperglycemia (principal); R07.9 Chest pain, unspecified; I11.0 Hypertensive heart disease with heart failure; I50.9 Heart failure, unspecified; E78.00 Pure hypercholesterolemia, unspecified; Z91.013 Allergy to seafood; Z86.718 Personal history of other venous thrombosis and embolism; Z88.6 Allergy status to analgesic agent; I69.354 Hemiplegia and hemiparesis following cerebral infarction affecting left non-dominant side; I25.2 Old myocardial infarction; Z79.4 Long term (current) use of insulin
CPT/HCPCS: 93005; 99285; 36415; 82962; 85025; 80053; 84484; 83880; 71046; 93010; A9270 ×5; J1815; J3490

== ENCOUNTER 2018-11-22 17:31 | Observation (INO) | payer MEDICARE, MEDICAID ==
--- NOTE | 2018-11-22 18:07 | ER Document Report ---
ED Medical Screen (RME) - General Chief Complaint: Chest Pain Stated Complaint: CHEST PAIN Time Seen by Provider: 11/22/18 17:57 Primary Care Provider: KARTHIK RICCI MD [Primary Care Provider] - Follow up as needed Mode of Arrival: Wheelchair Information source: Patient Notes: Patient states that he has had chest pain for the past 2 days. Patient complains of generalized weakness as well as shortness of breath. Patient states that he got up this morning to go to the bathroom and woke up after family members found him on the floor. Patient is unsure how long he may been on the floor. Patient complains of headache pain since his fall. Patient also complains of exacerbation of his psoriasis which is caused him to have the lesions to the trunk that are bleeding. Patient does state he took aspirin at home hx: TX, hypertension, diabetes, COPD, CHF, ventricular heart defect, VSD I have greeted and performed a rapid initial assessment of this patient. A comprehensive ED assessment and evaluation of the patient, analysis of test results and completion of the medical decision making process will be conducted by additional ED providers. TRAVEL OUTSIDE OF THE [place] IN LAST 30 DAYS: No - Related Data Allergies/Adverse Reactions: shellfish derived Allergy (Severe, Verified 10/27/18 11:26) morphine [Morphine] Allergy (Mild, Verified 10/27/18 11:26) Shellfish * [Shellfish] Allergy (Mild, Verified 10/27/18 11:26) Anaphylaxis cyclobenzaprine [From Flexeril] Allergy (Verified 10/27/18 11:26) diazepam [From Valium] Allergy (Verified 10/27/18 11:26) diphenhydramine Allergy (Verified 10/27/18 11:26) furosemide [From Lasix] Allergy (Verified 10/27/18 11:26) Past Medical History - Social History Family history: CAD - Past Medical History Cardiac Medical History: Reports: Hx Congestive Heart Failure, Hx Coronary Artery Disease, Hx DVT - right leg, Hx Heart Attack, Hx Hypercholesterolemia, Hx Hypertension, Hx Peripheral Vascular Disease, Hx Heart Murmur Pulmonary Medical History: Reports: Hx Pneumonia Denies: Hx Asthma, Hx COPD, Hx Tuberculosis Neurological Medical History: Reports: Hx Cerebrovascular Accident - Lt sided weakness-2018, Hx Migraine, Hx Seizures Endocrine Medical History: Reports: Hx Diabetes Mellitus Type 1, Hx Diabetes Mellitus Type 2. Denies: Hx Hyperthyroidism, Hx Hypothyroidism Renal/ Medical History: Reports: Hx Kidney Stones. Denies: Hx Peritoneal Dialysis GI Medical History: Reports: Hx Gastroesophageal Reflux Disease. Denies: Hx Cirrhosis, Hx Hepatitis Musculoskeltal Medical History: Reports Hx Arthritis, Reports Hx Muscle Weakness - Left Skin Medical History: Reports Hx Eczema, Denies Hx MRSA, Reports Hx Psoriasis Psychiatric Medical History: Denies: Hx Depression, Hx Schizoaffective Disorder Infectious Medical History: Denies: Hx Hepatitis, Hx MRSA Past Surgical History: Reports: Hx Cardiac Catheterization, Hx Cardiac Surgery - VSD having four previous surgeries as a child; heart valve defect, Hx Open Heart Surgery - VSD having five previous surgeries as a child; heart valve defect, Hx Vascular Surgery - Stents in right leg, Other - 4 separate operations for ventricular septal defect as a child.. Denies: Hx Pacemaker - Immunizations Immunizations up to date: Yes Hx Diphtheria, Pertussis, Tetanus Vaccination: Yes History of Influenza Vaccine for 03/2017 - 08/2017 Season: Yes Influenza Administration Date for 03/2017 - 08/2017 Season: 05/10/17 Physical Exam - Cardiovascular Rhythm: Regular Heart sounds: S1 appreciated, S2 appreciated Murmur: Yes Doctor's Discharge - Discharge Referrals: KARTHIK RICCI MD [Primary Care Provider] - Follow up as needed
--- NOTE | 2018-11-22 18:31 | RADIOLOGY REPORT (SQ) ---
EXAM DESCRIPTION: CT HEAD WITHOUT COMPLETED DATE/TIME: 11/22/2018 6:22 pm REASON FOR STUDY: fall, APPLE, +LOC, HTN COMPARISON: 06/22/2018 and earlier TECHNIQUE: Axial images acquired through the brain without intravenous contrast. Images reviewed wi th bone, brain and subdural windows. Additional sagittal and coronal reconstructions were generated. Images stored on PACS. All CT scanners at this facility use dose modulation, iterative reconstruction, and/or weight based d osing when appropriate to reduce radiation dose to as low as reasonably achievable (ALARA). [facility]: Dose Right [facility]: CareDose [facility]: Dose Right [facility]: Teradose 4D [facility]: Smart [facility] RADIATION DOSE: CT Rad equipment meets quality standard of care and radiation dose reduction techniq ues were employed. CTDIvol: 53.2 mGy. DLP: 1044 mGy-cm. mGy. LIMITATIONS: None. FINDINGS: VENTRICLES: Normal size and contour. CEREBRUM: No masses. No hemorrhage. No midline shift. No evidence for acute infarction. Normal gra y/white matter differentiation. No areas of low density in the white matter. CEREBELLUM: No masses. No hemorrhage. No alteration of density. No evidence for acute infarction. EXTRAAXIAL SPACES: No fluid collections. No masses. ORBITS AND GLOBE: No intra- or extraconal masses. Normal contour of globe without masses. CALVARIUM: No fracture. PARANASAL SINUSES: No fluid or mucosal thickening. SOFT TISSUES: No mass or hematoma. OTHER: No other significant finding. IMPRESSION: NO ACUTE INTRACRANIAL IMAGING FINDINGS. EVIDENCE OF ACUTE STROKE: NO. COMMENT: Quality ID # [id number]: Final reports with documentation of one or more dose reduction techniques (e.g., Automated exposure control, adjustment of the mA and/or kV according to patient size, use of iterative reconstruction technique) TECHNICAL DOCUMENTATION: JOB ID: [id number] [employer]- All Rights Reserved Reading location - IP/workstation name: [email or web address]
--- NOTE | 2018-11-22 18:56 | ER Document Report ---
ED General - General Chief Complaint: Chest Pain Stated Complaint: CHEST PAIN Time Seen by Provider: 11/22/18 17:57 Mode of Arrival: Wheelchair Information source: Patient Notes: This is a 48-year-old man with severe hypertension, CVA with left hemiparesis, syncope, severe psoriasis who presents to the emergency room with paroxysmal nocturnal dyspnea, dyspnea on exertion, chest tightness. Patient states his symptoms are very similar when he gets fluid overloaded. He does have a history of syncope and did syncope while he was in x-ray. He describes his chest tightness is nonradiating. He states he wakes up every morning at 2:30 in the morning and is gasping for breath. He does have a history of coronary artery disease and has 1 stent in the past. He has a history of congenital heart disease and had a VSD repair. TRAVEL OUTSIDE OF THE [place] IN LAST 30 DAYS: No - HPI Onset: Just prior to arrival Onset/Duration: Gradual Quality of pain: Dull Severity: Moderate Pain Level: 3 Associated symptoms: Chest pain. denies: Fever, Nausea, Vomiting, Shortness of breath Exacerbated by: Denies Relieved by: Denies Similar symptoms previously: Yes Recently seen / treated by doctor: Yes - Related Data Allergies/Adverse Reactions: shellfish derived Allergy (Severe, Verified 10/27/18 11:26) morphine [Morphine] Allergy (Mild, Verified 10/27/18 11:26) Shellfish * [Shellfish] Allergy (Mild, Verified 10/27/18 11:26) Anaphylaxis cyclobenzaprine [From Flexeril] Allergy (Verified 10/27/18 11:26) diazepam [From Valium] Allergy (Verified 10/27/18 11:26) diphenhydramine Allergy (Verified 10/27/18 11:26) furosemide [From Lasix] Allergy (Verified 10/27/18 11:26) Past Medical History - General Information source: Patient - Social History Smoking Status: Never Smoker Cigarette use (# per day): No Chew tobacco use (# tins/day): No Frequency of alcohol use: None Drug Abuse: None Lives with: Friend Family History: Arthritis, CAD, CVA, DM, Hyperlipidemia, Hypertension, Malignancy, Other Patient has suicidal ideation: No Patient has homicidal ideation: No - Past Medical History Cardiac Medical History: Reports: Hx Congestive Heart Failure, Hx Coronary Artery Disease, Hx DVT - right leg, Hx Heart Attack, Hx Hypercholesterolemia, Hx Hypertension, Hx Peripheral Vascular Disease, Hx Heart Murmur Pulmonary Medical History: Reports: Hx Pneumonia Denies: Hx Asthma, Hx COPD, Hx Tuberculosis Neurological Medical History: Reports: Hx Cerebrovascular Accident - Lt sided weakness-2018, Hx Migraine, Hx Seizures Endocrine Medical History: Reports: Hx Diabetes Mellitus Type 1, Hx Diabetes Mellitus Type 2. Denies: Hx Hyperthyroidism, Hx Hypothyroidism Renal/ Medical History: Reports: Hx Kidney Stones. Denies: Hx Peritoneal Dialysis GI Medical History: Reports: Hx Gastroesophageal Reflux Disease. Denies: Hx Cirrhosis, Hx Hepatitis Musculoskeletal Medical History: Reports Hx Arthritis, Reports Hx Muscle Weakness - Left Skin Medical History: Reports Hx Eczema, Denies Hx MRSA, Reports Hx Psoriasis Psychiatric Medical History: Denies: Hx Depression, Hx Schizoaffective Disorder Infectious Medical History: Denies: Hx Hepatitis, Hx MRSA Past Surgical History: Reports: Hx Cardiac Catheterization, Hx Cardiac Surgery - VSD having four previous surgeries as a child; heart valve defect, Hx Open Heart Surgery - VSD having five previous surgeries as a child; heart valve defect, Hx Vascular Surgery - Stents in right leg, Other - 4 separate operations for ventricular septal defect as a child.. Denies: Hx Pacemaker - Immunizations Immunizations up to date: Yes Hx Diphtheria, Pertussis, Tetanus Vaccination: Yes Hx Pneumococcal Vaccination: 03/24/18 Review of Systems - Review of Systems Constitutional: denies: Chills, Fever EENT: No symptoms reported Cardiovascular: Chest pain, Dyspnea, Paroxysmal Nocturnal Dysp. denies: Palpitations, Heart racing Respiratory: Short of breath Gastrointestinal: denies: Abdomen distended, Abdominal pain, Diarrhea Genitourinary: No symptoms reported Male Genitourinary: No symptoms reported Musculoskeletal: No symptoms reported Skin: See HPI Hematologic/Lymphatic: No symptoms reported Neurological/Psychological: No symptoms reported Physical Exam - Vital signs Vitals: Temp Pulse BP Pulse Ox 98.0 F 93 209/140 H 98 11/22/18 17:52 11/22/18 17:52 11/22/18 17:52 11/22/18 17:52 Notes: Physical exam: GENERAL: She is alert and oriented x3, no acute distress. HEAD: Atraumatic, normocephalic. EYES: Pupils equal round and reactive to light, extraocular movements intact, sclera anicteric, conjunctiva are normal. ENT: TMs normal, nares patent, oropharynx clear without exudates. Moist mucous membranes. NECK: Normal range of motion, supple without obvious mass or JVD. LUNGS: Breath sounds clear to auscultation bilaterally and equal. No wheezes rales or rhonchi. HEART: Regular rate and rhythm without murmurs, rubs or gallops. ABDOMEN: Soft, normoactive bowel sounds. No tenderness to palpation. No guarding, no rebound. No masses appreciated. EXTREMITIES: Normal range of motion, his chronic venous changes to the lower extremities with no significant edema. NEUROLOGICAL: Cranial nerves II through XII grossly intact. Normal speech, moving all extremities. PSYCH: Normal mood, normal affect. SKIN: He has psoriatic lesions to the abdominal wall. Course - Vital Signs Vital signs: Temp Pulse Resp BP Pulse Ox 98.0 F 93 18 173/103 H 97 11/22/18 17:52 11/22/18 17:52 11/22/18 21:00 11/22/18 20:57 11/22/18 21:00 - Laboratory Result Diagrams: 11/22/18 18:35 11/22/18 18:35 Laboratory results interpreted by me: 11/22/18 11/22/18 11/22/18 18:35 18:35 18:35 RDW 18.4 H Sodium 132.6 L Chloride 92 L Carbon Dioxide 31 H BUN 21 H Glucose 380 H AST 16 L ALT 15 L Alkaline Phosphatase 139 H Creatine Kinase NT-Pro-B Natriuret Pep 1770 H Urine Protein Urine Glucose (UA) 11/22/18 11/22/18 20:21 20:45 RDW Sodium Chloride Carbon Dioxide BUN Glucose AST ALT Alkaline Phosphatase Creatine Kinase 54 L NT-Pro-B Natriuret Pep Urine Protein >=500 H Urine Glucose (UA) >=500 H - Diagnostic Test Radiology reviewed: Image reviewed, Reports reviewed - CT of the head shows no acute process per - EKG Interpretation by Me Rate: Normal Rhythm: NSR - EKG shows normal sinus rhythm with a ventricular rate of 96, evidence of LVH Critical Care Note - Critical Care Note Total time excluding time spent on procedures (mins): 60 Discharge - Discharge Clinical Impression: Chest pain, Syncope, Uncontrolled hypertension Condition: Serious Disposition: ADMITTED INPATIENT Admitting Provider: Leann Sagastume is covering Unit Admitted: [facility]
[2018-11-22] MEDS ORDERED: CLONIDINE 0.3 MG/24 HR PATCH.TDWK TD ONE (19:00)
[2018-11-22] MEDS ORDERED: HYDRALAZINE HCL INJ/PF 20 MG/1 ML SDV IV ONE ×2 (19:00→20:29)
[2018-11-22 19:01] LABS: ABSOLUTE BASOPHILS # (AUTO) 0.1 10^3/uL (0.0-0.2); ABSOLUTE EOSINOPHILS # (AUTO) 0.1 10^3/uL (0.0-0.6); ABSOLUTE LYMPHOCYTES (AUTO) 1.5 10^3/uL (0.5-4.7); ABSOLUTE MONOCYTES (AUTO) 0.5 10^3/uL (0.1-1.4); ABSOLUTE NEUT (AUTO) 3.7 10^3/uL (1.7-8.2); BASOPHILS % (AUTO) 1.3 % (0-2); HEMATOCRIT 40.3 % (37.9-51.0); HEMOGLOBIN 13.5 g/dL (13.5-17.0); LYMPHOCYTES % (AUTO) 25.5 % (13-45); MEAN CORPUSCULAR HEMOGLOBIN 27.2 pg (27.0-33.4); MEAN CORPUSCULAR HGB CONC 33.6 g/dL (32.0-36.0); MEAN CORPUSCULAR VOLUME 81 fl (80-97); MONOCYTES % (AUTO) 8.2 % (3-13); PLATELET COUNT 333 10^3/uL (150-450); RED BLOOD COUNT 4.97 10^6/uL (4.35-5.55); RED CELL DISTRIBUTION WIDTH 18.4 % (11.5-14.0); TOTAL CELLS COUNTED % (AUTO) 100 %; WHITE BLOOD COUNT 5.7 10^3/uL (4.0-10.5)
[2018-11-22 19:11] LABS: ALANINE AMINOTRANSFERASE 15 U/L (21-72); ALBUMIN 3.9 g/dL (3.5-5.0); ALKALINE PHOSPHATASE 139 U/L (38-126); ANION GAP 10 (5-19); ASPARTATE AMINO TRANSFERASE 16 U/L (17-59); BILIRUBIN,DIRECT 0.3 mg/dL (0.0-0.4); BILIRUBIN,TOTAL 0.5 mg/dL (0.2-1.3); BLOOD UREA NITROGEN 21 mg/dL (7-20); CALCIUM 9.5 mg/dL (8.4-10.2); CARBON DIOXIDE 31 mmol/L (22-30); CHLORIDE 92 mmol/L (98-107); GLUCOSE 380 mg/dL (75-110); POTASSIUM 4.2 mmol/L (3.6-5.0); SODIUM 132.6 mmol/L (137-145)
[2018-11-22 19:23] LABS: TROPONIN I 0.026 ng/mL
[2018-11-22] MEDS ORDERED: CLONIDINE 0.3 MG/24 HR PATCH.TDWK ONE (19:33)
--- NOTE | 2018-11-22 20:27 | RADIOLOGY REPORT (SQ) ---
EXAM DESCRIPTION: XR CHEST 1 VIEW COMPLETED DATE/TME: 11/22/2018 18:03 CLINICAL HISTORY: CHEST PAIN, FALL, +LOC, HTN, HEADACHE COMPARISON: November 15, 2018 FINDINGS: Cardiac silhouette is enlarged, unchanged compared with the prior exam. Aorta is tortuous. Patient is status post median sternotomy. EKG leads project over the chest. There is no focal parenchymal or pleural disease. There is no acute osseous process visualized. IMPRESSION: No evidence of acute cardiopulmonary disease.
[2018-11-22] MEDS ORDERED: BUMETANIDE INJ/PF 1 MG/4 ML SDV IV ONE (20:28)
[2018-11-22] MEDS ORDERED: CARVEDILOL 12.5 MG TABLET PO ONE (20:38)
[2018-11-22] MEDS ORDERED: IPRATROPIUM/ALBUTEROL 0.5-2.5 MG/3 ML AMPUL NEB PRN (20:50)
[2018-11-22] MEDS ORDERED: ACETAMINOPHEN 325 MG TABLET PO PRN (20:50)
[2018-11-22] MEDS ORDERED: HYDRALAZINE HCL INJ/PF 20 MG/1 ML SDV IV PRN (20:57)
[2018-11-22 21:10] LABS: APPEARANCE,URINE CLEAR; BILIRUBIN,URINE NEGATIVE (NEGATIVE); COLOR,URINE YELLOW; GLUCOSE, URINE >=500 mg/dL (NEGATIVE); KETONES,URINE NEGATIVE (NEGATIVE); LEUKOCYTE ESTERASE,URINE NEGATIVE (NEGATIVE); NITRITE,URINE NEGATIVE (NEGATIVE); PROTEIN,URINE >=500 mg/dL (NEGATIVE); URINE SPECIFIC GRAVITY 1.025; UROBILINOGEN,URINE NEGATIVE mg/dL (<2.0)
[2018-11-22] MEDS: HYDROCODONE/ACETAMINOPHEN 10-325 MG TABLET PO PRN (21:26)
[2018-11-22] MEDS ORDERED: GLUCAGON,HUMAN RECOMB 1 MG INJ IM PRN (21:37)
[2018-11-22] MEDS ORDERED: DEXTROSE 50%-WATER 25 GM/50 ML DISP.SYRIN IV PRN ×2 (21:37)
[2018-11-22] MEDS ORDERED: DEXTROSE 40% GEL 15 GM TUBE PO PRN ×2 (21:37)
[2018-11-22 21:38] LABS: CREATINE KINASE MB 0.88 ng/mL (<4.55)
[2018-11-22 21:48] LABS: TROPONIN I 0.036 ng/mL
[2018-11-22] MEDS ORDERED: CLONIDINE HCL 0.1 MG TABLET PO SCH (22:00)
[2018-11-22] MEDS ORDERED: FUROSEMIDE INJ/PF 20 MG/2 ML SDV IV SCH (22:00)
[2018-11-22] MEDS: CARVEDILOL 12.5 MG TABLET PO SCH (22:09)
[2018-11-22] MEDS: INSULIN LISPRO 100 UNIT/ML 3 ML VIAL SUBCUT SCH (22:35)
--- NOTE | 2018-11-22 22:35 | RADIOLOGY REPORT (SQ) ---
EXAM DESCRIPTION: CT CHEST WITHOUT IV CONTRAST COMPLETED DATE/TME: 11/22/2018 21:43 CLINICAL HISTORY: 48 years, Male, cp COMPARISON: 10/30/2018 CT chest TECHNIQUE: 331 Images stored on PACS. All CT scanners at this facility use dose modulation, iterative reconstruction, and/or weight based dosing when appropriate to reduce radiation dose to as low as reasonably achievable (ALARA). [facility]: Dose Right [facility]: CareDose [facility]: Dose Right [facility]: Teradose 4D [facility]: [employer] LIMITATIONS: None. FINDINGS: No gross evidence for mediastinal or hilar adenopathy. The heart is enlarged but stable. Limited evaluation of upper abdomen shows partially exophytic left renal cyst. Osseous structures are grossly intact. No pneumothorax. The visualized airways are patent. Subtle groundglass opacity described in the right lung base on the prior exam has resolved. Lungs are now clear IMPRESSION: Negative for acute intrathoracic process TECHNICAL DOCUMENTATION: Quality ID # [id number]: Final reports with documentation of one or more dose reduction techniques (e.g., Automated exposure control, adjustment of the mA and/or kV according to patient size, use of iterative reconstruction technique) copyright 2010 [employer]- All Rights Reserved
--- NOTE | 2018-11-22 23:43 | EKG REPORT ---
SEVERITY:- ABNORMAL ECG - SINUS RHYTHM PROBABLE LEFT ATRIAL ABNORMALITY LEFT ANTERIOR FASCICULAR BLOCK LEFT VENTRICULAR HYPERTROPHY BORDERLINE PROLONGED QT INTERVAL : Confirmed by: Loyda Fernandes MD 22-Nov-2018 23:43:07
[2018-11-23 04:26] LABS: ABSOLUTE BASOPHILS # (AUTO) 0.1 10^3/uL (0.0-0.2); ABSOLUTE EOSINOPHILS # (AUTO) 0.1 10^3/uL (0.0-0.6); ABSOLUTE LYMPHOCYTES (AUTO) 1.1 10^3/uL (0.5-4.7); ABSOLUTE MONOCYTES (AUTO) 0.3 10^3/uL (0.1-1.4); ABSOLUTE NEUT (AUTO) 3.6 10^3/uL (1.7-8.2); BASOPHILS % (AUTO) 1.1 % (0-2); EOSINOPHILS % (AUTO) 1.4 % (0-6); HEMATOCRIT 39.5 % (37.9-51.0); HEMOGLOBIN 13.2 g/dL (13.5-17.0); LYMPHOCYTES % (AUTO) 21.9 % (13-45); MEAN CORPUSCULAR HGB CONC 33.4 g/dL (32.0-36.0); MEAN CORPUSCULAR VOLUME 81 fl (80-97); PLATELET COUNT 313 10^3/uL (150-450); RED BLOOD COUNT 4.88 10^6/uL (4.35-5.55); SEGMENTED NEUTROPHILS % (AUTO) 69.6 % (42-78); TOTAL CELLS COUNTED % (AUTO) 100 %; WHITE BLOOD COUNT 5.2 10^3/uL (4.0-10.5)
[2018-11-23 05:04] LABS: CREATINE KINASE MB 0.95 ng/mL (<4.55); TROPONIN I 0.028 ng/mL
[2018-11-23] MEDS: PANTOPRAZOLE SODIUM 20 MG TABLET.DR PO SCH (05:07)
[2018-11-23] MEDS: HYDROCODONE/ACETAMINOPHEN 10-325 MG TABLET PO PRN ×2 (05:31→15:07)
[2018-11-23 05:33] LABS: BLOOD UREA NITROGEN 21 mg/dL (7-20); CALCIUM 9.2 mg/dL (8.4-10.2); GLUCOSE 344 mg/dL (75-110)
[2018-11-23 05:34] LABS: ALANINE AMINOTRANSFERASE 16 U/L (21-72); ALBUMIN 3.5 g/dL (3.5-5.0); ALKALINE PHOSPHATASE 127 U/L (38-126); ANION GAP 8 (5-19); ASPARTATE AMINO TRANSFERASE 13 U/L (17-59); BILIRUBIN,DIRECT 0.3 mg/dL (0.0-0.4); BILIRUBIN,TOTAL 0.6 mg/dL (0.2-1.3); CARBON DIOXIDE 30 mmol/L (22-30); CHLORIDE 94 mmol/L (98-107); POTASSIUM 4.1 mmol/L (3.6-5.0); SODIUM 132.3 mmol/L (137-145); TOTAL PROTEIN 7.2 g/dL (6.3-8.2)
[2018-11-23] MEDS: INSULIN LISPRO 100 UNIT/ML 3 ML VIAL SUBCUT SCH ×4 (08:11→21:50)
[2018-11-23 09:44] LABS: CREATINE KINASE MB 0.78 ng/mL (<4.55); TROPONIN I 0.019 ng/mL
--- NOTE | 2018-11-23 09:58 | PDOC H&P ---
History of Present Illness Admission Date/PCP: 11/22/18 21:36 KARTHIK RICCI MD Patient complains of: Chest pain History of Present Illness: SHARON JERONIMO is a 48 year old male This is a 48-year-old male with the history of the severe hypertension CVA with a left hemiparesis syncopal severe psoriasis who presented the emergency department with the paroxysmal nocturnal dyspnea dyspnea on exertion's with the chest tightness. Patient stated his symptoms were very similar when he get the fluid overload. He does have a history of a syncopal indeed the syncopal while he was in the x- rays before. He describes his chest tightness is a nonradiating's He states that he woke up this morning and he was gasping for the breath He does have a history of the coronary artery disease however one stent placement in the past He had a congenital heart disease and a VSD repair The patient's cardiology patient have a pleuritic chest pain and was given crutches since last time patient was in the hospital 3 weeks back patient have recently a stress test was done was all stable and according to the cardiology Dr. Fernandes patient's cardiac cath was also stable. When I saw the patient in the floor patients denied any chest pain but still not feeling well denied any short of breath Patient CT of the chest without contrast was negative for any acute findings Patient's initial cardiac enzyme is all stable Patient's blood pressure in the emergency department was at 220 range was given clonidine and hydralazine by ER physicians was coming down According to the patient he is takes the blood pressure medicines regularly Patient initial work-up in the ER including CT of the head was negative Patient's denied any weakness . Past Medical History Cardiac Medical History: Reports: Congestive Heart Failure, Coronary Artery Disease, DVT - right leg, Myocardial Infarction, Hyperlipidema, Hypertension, Peripheral Vascular Disease, Heart Murmur Pulmonary Medical History: Reports: Pneumonia Denies: Asthma, Chronic Obstructive Pulmonary Disease (COPD), Tuberculosis Neurological Medical History: Reports: Migraine, Seizures Endocrine Medical History: Reports: Diabetes Mellitus Type 2 Denies: Hyperthyroidism, Hypothyroidism GI Medical History: Reports: Gastroesophageal Reflux Disease Denies: Cirrhosis, Hepatitis Musculoskeltal Medical History: Reports: Arthritis Skin Medical History: Reports: Eczema, Psoriasis Psychiatric Medical History: Denies: Depression, Schizoaffective Disorder Infectious Medical History: Denies: Methicillin-Resistant Staph Aureus Past Surgical History Past Surgical History: Reports: Cardiac Catheterization, Vascular Surgery - Stents in right leg, Other - 4 separate operations for ventricular septal defect as a child. Denies: Pacemaker Social History Lives with: Friend Smoking Status: Never Smoker Frequency of Alcohol Use: None Hx Recreational Drug Use: No Drugs: None Hx Prescription Drug Abuse: No Family History Family History: Reviewed & Not Pertinent, Arthritis, CAD, CVA, DM, Hyperlipidemia, Hypertension, Malignancy, Other Parental Family History Reviewed: Yes Children Family History Reviewed: Yes Sibling(s) Family History Reviewed.: Yes Medication/Allergy Home Medications: Amlodipine Besylate [Norvasc 10 mg Tablet] 10 mg PO DAILY 10/13/18 Apremilast [Otezla] 30 mg PO BID 10/13/18 Aspirin [Ecotrin 325 mg EC Tablet] 325 mg PO DAILY 10/13/18 Carvedilol [Coreg 12.5 mg Tablet] 12.5 mg PO Q12 10/13/18 Clobetasol Propionate [Temovate 0.05% Cream 15 gm] 1 applic TOP BID 10/13/18 Clonidine HCl [Catapres 0.1 mg Tablet] 0.1 mg PO Q8 10/13/18 Hydrocodone/Acetaminophen [[place] 10-325 Tablet] 1 tab PO Q8HP PRN 10/13/18 Isosorb Dinit/Hydralazine HCl [Bidil 20-37.5 mg Tablet] 1 tab PO Q8 10/13/18 Metolazone [Zaroxolyn 5 mg Tablet] 2.5 mg PO DAILY 10/13/18 Sacubitril/Valsartan [Entresto 49 mg/51 mg Tablet] 1 tab PO Q12 10/13/18 Sitagliptin Phos/Metformin HCl [Janumet 50-1,000 mg Tablet] 1 tab PO BID Spironolactone [Aldactone 25 mg Tablet] 25 mg PO Q12 10/13/18 Torsemide [Demadex 20 mg Tablet] 20 mg PO DAILYP PRN 10/13/18 Allergies/Adverse Reactions: shellfish derived Allergy (Severe, Verified 10/27/18 11:26) morphine [Morphine] Allergy (Mild, Verified 10/27/18 11:26) Shellfish * [Shellfish] Allergy (Mild, Verified 10/27/18 11:26) Anaphylaxis cyclobenzaprine [From Flexeril] Allergy (Verified 10/27/18 11:26) diazepam [From Valium] Allergy (Verified 10/27/18 11:26) diphenhydramine Allergy (Verified 10/27/18 11:26) furosemide [From Lasix] Allergy (Verified 10/27/18 11:26) Review of Systems Constitutional: PRESENT: fatigue. ABSENT: chills, fever(s), headache(s), weight gain, weight loss Eyes: ABSENT: visual disturbances Ears: ABSENT: hearing changes Cardiovascular: PRESENT: chest pain, dyspnea on exertion. ABSENT: edema, orthropnea, palpitations Respiratory: ABSENT: cough, hemoptysis Gastrointestinal: ABSENT: abdominal pain, constipation, diarrhea, hematemesis, h ematochezia, nausea, vomiting Genitourinary: ABSENT: dysuria, hematuria Musculoskeletal: ABSENT: joint swelling Integumentary: ABSENT: rash, wounds Neurological: ABSENT: abnormal gait, abnormal speech, confusion, dizziness, focal weakness, syncope Psychiatric: ABSENT: anxiety, depression, homidical ideation, suicidal ideation Endocrine: ABSENT: cold intolerance, heat intolerance, menstrual abnormalities, polydipsia, polyuria Hematologic/Lymphatic: ABSENT: easy bleeding, easy bruising, lymphadenopathy Physical Exam Vital Signs: Temp Pulse Resp BP Pulse Ox 97.7 F 68 22 H 163/109 H 100 11/23/18 07:46 11/23/18 07:46 11/23/18 07:46 11/23/18 07:46 11/23/18 07:46 Intake & Output 11/22/18 11/23/18 11/24/18 06:59 06:59 06:59 Intake Total 580 Output Total 0 Balance 580 Weight 104.8 kg General appearance: PRESENT: no acute distress, well-developed, well-nourished Head exam: PRESENT: atraumatic, normocephalic Eye exam: PRESENT: conjunctiva pink, EOMI, PERRLA. ABSENT: scleral icterus Ear exam: PRESENT: normal external ear exam Mouth exam: PRESENT: moist, tongue midline Neck exam: PRESENT: full ROM. ABSENT: carotid bruit, JVD, lymphadenopathy, thyromegaly Respiratory exam: PRESENT: clear to auscultation bernardo Cardiovascular exam: PRESENT: RRR. ABSENT: diastolic murmur, rubs, systolic murmur Pulses: PRESENT: normal dorsalis pedis pul, +2 pedal pulses bilateral Vascular exam: PRESENT: normal capillary refill GI/Abdominal exam: PRESENT: normal bowel sounds, soft. ABSENT: distended, guarding, mass, organolmegaly, rebound, tenderness Rectal exam: PRESENT: deferred Extremities exam: ABSENT: pedal edema Musculoskeletal exam: PRESENT: ambulatory Neurological exam: PRESENT: alert, awake, oriented to person, oriented to place, oriented to time, oriented to situation, CN II-XII grossly intact. ABSENT: motor sensory deficit Psychiatric exam: PRESENT: appropriate affect, normal mood. ABSENT: homicidal ideation, suicidal ideation Skin exam: PRESENT: dry, intact, warm. ABSENT: cyanosis, rash Results Laboratory Results: 11/23/18 03:15 11/23/18 03:15 11/22/18 11/22/18 11/22/18 18:35 18:35 20:21 WBC 5.7 RBC 4.97 Hgb 13.5 Hct 40.3 MCV 81 MCH 27.2 MCHC 33.6 RDW 18.4 H Plt Count 333 Seg Neutrophils % 64.0 Lymphocytes % 25.5 Monocytes % 8.2 Eosinophils % 1.0 Basophils % 1.3 Absolute Neutrophils 3.7 Absolute Lymphocytes 1.5 Absolute Monocytes 0.5 Absolute Eosinophils 0.1 Absolute Basophils 0.1 Sodium 132.6 L Potassium 4.2 Chloride 92 L Carbon Dioxide 31 H Anion Gap 10 BUN 21 H Creatinine 1.16 Est GFR ( Amer) > 60 Est GFR (Non-Af Amer) > 60 Glucose 380 H Calcium 9.5 Magnesium Total Bilirubin 0.5 AST 16 L ALT 15 L Alkaline Phosphatase 139 H Total Protein 8.0 Albumin 3.9 Urine Color YELLOW Urine Appearance CLEAR Urine pH 6.0 Ur Specific [place] 1.025 Urine Protein >=500 H Urine Glucose (UA) >=500 H Urine Ketones NEGATIVE Urine Blood NEGATIVE Urine Nitrite NEGATIVE Ur Leukocyte Esterase NEGATIVE Urine WBC (Auto) 1 Urine RBC (Auto) 2 11/23/18 11/23/18 03:15 03:15 WBC 5.2 RBC 4.88 Hgb 13.2 L Hct 39.5 MCV 81 MCH 27.0 MCHC 33.4 RDW 18.0 H Plt Count 313 Seg Neutrophils % 69.6 Lymphocytes % 21.9 Monocytes % 6.0 Eosinophils % 1.4 Basophils % 1.1 Absolute Neutrophils 3.6 Absolute Lymphocytes 1.1 Absolute Monocytes 0.3 Absolute Eosinophils 0.1 Absolute Basophils 0.1 Sodium 132.3 L Potassium 4.1 Chloride 94 L Carbon Dioxide 30 Anion Gap 8 BUN 21 H Creatinine 1.14 Est GFR ( Amer) > 60 Est GFR (Non-Af Amer) > 60 Glucose 344 H Calcium 9.2 Magnesium 1.9 Total Bilirubin 0.6 AST 13 L ALT 16 L Alkaline Phosphatase 127 H Total Protein 7.2 Albumin 3.5 Urine Color Urine Appearance Urine pH Ur Specific [place] Urine Protein Urine Glucose (UA) Urine Ketones Urine Blood Urine Nitrite Ur Leukocyte Esterase Urine WBC (Auto) Urine RBC (Auto) 11/22/18 11/22/18 11/22/18 18:35 20:45 20:45 Creatine Kinase 54 L CK-MB (CK-2) Troponin I 0.026 Cancelled NT-Pro-B Natriuret Pep 1770 H 11/22/18 11/23/18 11/23/18 20:45 03:15 03:15 Creatine Kinase 45 L CK-MB (CK-2) 0.88 0.95 Troponin I 0.036 0.028 NT-Pro-B Natriuret Pep 11/23/18 11/23/18 08:54 08:54 Creatine Kinase 33 L CK-MB (CK-2) 0.78 Troponin I 0.019 NT-Pro-B Natriuret Pep Impressions: Chest X-Ray 11/22/18 18:03 IMPRESSION: No evidence of acute cardiopulmonary disease. Head CT 11/22/18 18:03 IMPRESSION: NO ACUTE INTRACRANIAL IMAGING FINDINGS. EVIDENCE OF ACUTE STROKE: NO. Chest CT 11/22/18 21:43 IMPRESSION: Negative for acute intrathoracic process TECHNICAL DOCUMENTATION: Quality ID # 436: Final reports with documentation of one or more dose reduction techniques (e.g., Automated exposure control, adjustment of the mA and/or kV according to patient size, use of iterative reconstruction technique) copyright 2011 [employer]- All Rights Reserved Assessment & Plan - Diagnosis (1) Chest pain Qualifiers: Ischemic chest pain type: unspecified angina pectoris type Is this a current diagnosis for this admission?: Yes Plan: We will consult the cardiology for further evaluations with a significant underlying coronary disease As per discussed with the cardiology most likely pleuritic chest pain or pain (2) Chronic combined systolic and diastolic heart failure Is this a current diagnosis for this admission?: Yes Plan: Patient unable to take the Lasix We will give her Bumex and will defer to the cardiology (3) Coronary artery disease Qualifiers: Coronary Disease-Associated Artery/Lesion type: unspecified vessel or lesion type Is this a current diagnosis for this admission?: Yes Plan: We do the serial cardiac enzyme to rule out any acute coronary syndromes (4) Diabetes mellitus type 2 in obese Is this a current diagnosis for this admission?: Yes Plan: Continues a sliding scale's (5) Dyspnea on exertion Is this a current diagnosis for this admission?: Yes Plan: Most likely a pulmonary vascular congestions Currently feel better (6) History of CVA (cerebrovascular accident) without residual deficits Is this a current diagnosis for this admission?: Yes (7) Hypertensive emergency Is this a current diagnosis for this admission?: Yes Plan: Most likely probably noncompliance with the medications Continues to current medications Discussed with the cardiology to readjust the medications We will defer to the patient's primary care doctor for the further evaluations with uncontrolled hypertension's Probably need a renal artery renal arteries Doppler (8) Nephrotic range proteinuria Is this a current diagnosis for this admission?: Yes (9) Plaque psoriasis Is this a current diagnosis for this admission?: Yes Plan: Patient is currently follow with the dermatology (10) S/P VSD closure Is this a current diagnosis for this admission?: Yes Plan: With the cardiology (11) Syncopal episodes Qualifiers: Syncope type: unspecified Qualified Code(s): R55 - Syncope and collapse Is this a current diagnosis for this admission?: Yes Plan: Will order a 2D echocardiogram CT head is negative We will order the carotid Doppler - Time Time Spent: 50 to 70 Minutes Medications reviewed and adjusted accordingly: Yes Anticipated discharge: Other Within: Other - Inpatient Certification Based on my medical assessment, after consideration of the patient's comorbidities, presenting symptoms, or acuity I expect that the services needed warrant INPATIENT care.: Yes I certify that my determination is in accordance with my understanding of Medicare's requirements for reasonable and necessary INPATIENT services [42 CFR 412.3e].: Yes Medical Necessity: Significant Comorbidiites Make Outpatient Treatment Too [place]is [place], Need Close Monitoring Due to Risk of Patient Decompensation Post Hospital Care: D/C [employer] Documentation - Plan Summary Plan Summary: Admit the patient in IMCU See the MD orders
[2018-11-23] MEDS: CARVEDILOL 12.5 MG TABLET PO SCH ×2 (10:08→21:51)
[2018-11-23] MEDS: AMLODIPINE BESYLATE 10 MG TABLET PO SCH (10:08)
[2018-11-23] MEDS: ENOXAPARIN SODIUM INJ 40 MG/0.4 ML DISP.SYRIN SUBCUT SCH (10:09)
[2018-11-23] MEDS: BUMETANIDE INJ/PF 1 MG/4 ML SDV IV SCH ×2 (10:09→18:03)
[2018-11-23] MEDS: DOCUSATE SODIUM 100 MG CAPSULE PO SCH ×2 (10:09→18:10)
[2018-11-23] MEDS: ASPIRIN 325 MG TABLET, ENT COATED PO SCH (10:09)
[2018-11-23] MEDS: HYDRALAZINE HCL 50 MG TABLET PO SCH (18:03)
--- NOTE | 2018-11-23 18:18 | RADIOLOGY REPORT (SQ) ---
EXAM DESCRIPTION: CAROTID DOPPLER COMPLETED DATE/TIME: 11/23/2018 5:42 pm REASON FOR STUDY: syncopal episode COMPARISON: Carotid Doppler 01/17/2017 TECHNIQUE: Grayscale ultrasound, Doppler velocity and spectra, and color Doppler images acquired of the extra-cranial carotid and vertebral arteries. Images stored on PACS. LIMITATIONS: None. FINDINGS: RIGHT CAROTID CCA Velocities: Within normal limits. ICA Velocities Peak systolic 0.47 m/s. End diastolic 0.20 m/s. Proximal ICA/CCA peak systolic ratio 0.8. Spectra normal. No significant plaque. LEFT CAROTID CCA Velocities: Within normal limits. ICA Velocities Peak systolic 0.39 m/s. End diastolic 0.18 m/s. Proximal ICA/CCA peak systolic ratio 0.7. Spectra normal. No significant plaque. VERTEBRAL ARTERIES: Antegrade flow. Normal waveforms. IMPRESSION: NO HEMODYNAMICALLY SIGNIFICANT STENOSIS. COMMENT: Quality ID #195: Velocity criteria are extrapolated from the diameter data as defined by t [place] Society of Radiologists in Ultrasound Consensus Conference. Radiology 2003: 229; 340-346. TECHNICAL DOCUMENTATION: JOB ID: [id number] [place]-64 2010 [employer]- All Rights Reserved Reading location - IP/workstation name: [email or web address]
[2018-11-24] MEDS: HYDRALAZINE HCL 50 MG TABLET PO SCH ×5 (00:02→23:55)
[2018-11-24] MEDS: HYDROCODONE/ACETAMINOPHEN 10-325 MG TABLET PO PRN ×2 (00:04→22:26)
[2018-11-24] MEDS ORDERED: IBUPROFEN 800 MG TABLET PO ONE (00:30)
[2018-11-24 01:49] LABS: CREATINE KINASE MB 0.65 ng/mL (<4.55); TROPONIN I 0.016 ng/mL
[2018-11-24] MEDS: PANTOPRAZOLE SODIUM 20 MG TABLET.DR PO SCH (06:22)
[2018-11-24 07:11] LABS: ABSOLUTE EOSINOPHILS # (AUTO) 0.1 10^3/uL (0.0-0.6); ABSOLUTE LYMPHOCYTES (AUTO) 1.3 10^3/uL (0.5-4.7); ABSOLUTE MONOCYTES (AUTO) 0.2 10^3/uL (0.1-1.4); ABSOLUTE NEUT (AUTO) 2.4 10^3/uL (1.7-8.2); BASOPHILS % (AUTO) 0.5 % (0-2); EOSINOPHILS % (AUTO) 1.8 % (0-6); HEMATOCRIT 40.8 % (37.9-51.0); HEMOGLOBIN 13.5 g/dL (13.5-17.0); LYMPHOCYTES % (AUTO) 31.9 % (13-45); MEAN CORPUSCULAR HEMOGLOBIN 26.9 pg (27.0-33.4); MEAN CORPUSCULAR HGB CONC 33.2 g/dL (32.0-36.0); MEAN CORPUSCULAR VOLUME 81 fl (80-97); MONOCYTES % (AUTO) 5.3 % (3-13); PLATELET COUNT 362 10^3/uL (150-450); RED BLOOD COUNT 5.03 10^6/uL (4.35-5.55); RED CELL DISTRIBUTION WIDTH 18.1 % (11.5-14.0); SEGMENTED NEUTROPHILS % (AUTO) 60.5 % (42-78); TOTAL CELLS COUNTED % (AUTO) 100 %
[2018-11-24 07:25] LABS: ANION GAP 9 (5-19); BLOOD UREA NITROGEN 22 mg/dL (7-20); CALCIUM 9.3 mg/dL (8.4-10.2); CARBON DIOXIDE 30 mmol/L (22-30); CHLORIDE 96 mmol/L (98-107); GLUCOSE 276 mg/dL (75-110); POTASSIUM 4.2 mmol/L (3.6-5.0); SODIUM 135.3 mmol/L (137-145)
--- NOTE | 2018-11-24 07:30 | EKG REPORT ---
SEVERITY:- ABNORMAL ECG - SINUS RHYTHM LEFT ATRIAL ABNORMALITY LEFT ANTERIOR FASCICULAR BLOCK LEFT VENTRICULAR HYPERTROPHY : Confirmed by: Yoseph Yu MD 24-Nov-2018 07:29:47
[2018-11-24] MEDS: DOCUSATE SODIUM 100 MG CAPSULE PO SCH ×2 (09:59→17:50)
[2018-11-24] MEDS: AMLODIPINE BESYLATE 10 MG TABLET PO SCH (10:00)
[2018-11-24] MEDS: CARVEDILOL 12.5 MG TABLET PO SCH ×2 (10:00→21:34)
[2018-11-24] MEDS: ASPIRIN 325 MG TABLET, ENT COATED PO SCH (10:00)
[2018-11-24] MEDS ORDERED: CLOBETASOL PROPIONATE 0.05% CREAM 15 GM TP SCH (10:00)
[2018-11-24] MEDS: BUMETANIDE INJ/PF 1 MG/4 ML SDV IV SCH ×2 (10:01→17:55)
[2018-11-24] MEDS: INSULIN LISPRO 100 UNIT/ML 3 ML VIAL SUBCUT SCH ×4 (10:01→21:34)
[2018-11-24] MEDS: ENOXAPARIN SODIUM INJ 40 MG/0.4 ML DISP.SYRIN SUBCUT SCH (10:02)
[2018-11-24] MEDS: CLOBETASOL PROPIONATE 0.05% OINTMENT 15 GM TP SCH ×2 (14:53→17:56)
--- NOTE | 2018-11-24 20:55 | PDOC PROGRESS REPORT ---
Subjective Progress Note for:: 11/24/18 Subjective:: Patient was admitted over the weekend when he presented with orthopnea, shortness of breath and syncope, he stated that his neighbor saw him unresponsive rescue squad was called to his residence and he was transferred to the hospital for evaluation. He has multiple hospital admissions he has multiple comorbid conditions including CAD, cardiomyopathy the last 2D echo that was done demonstrated ejection fraction 40% with moderate to severe concentric LVH with combined diastolic and systolic heart failure, psoriasis, nephrotic syndrome, diabetes mellitus. consultation obtained from cardiology for further diagnostic evaluation of his orthopnea that suggests acute on chronic systolic heart failure Reason For Visit: CHEST PAIN Physical Exam Vital Signs: Temp Pulse Resp BP Pulse Ox 97.7 F 79 20 146/95 H 99 11/24/18 20:01 11/24/18 20:01 11/24/18 20:01 11/24/18 20:01 11/24/18 20:01 Intake & Output 11/23/18 11/24/18 11/25/18 06:59 06:59 06:59 Intake Total 580 2082 636 Output Total 0 2075 925 Balance 580 7 -289 Weight 104.8 kg 104.8 kg General appearance: PRESENT: no acute distress Eye exam: PRESENT: PERRLA Respiratory exam: PRESENT: clear to auscultation bernardo Cardiovascular exam: PRESENT: +S1, +S2 GI/Abdominal exam: PRESENT: soft Neurological exam: PRESENT: alert Results Laboratory Results: 11/24/18 06:45 11/24/18 06:45 11/24/18 11/24/18 06:45 06:45 WBC 4.0 RBC 5.03 Hgb 13.5 Hct 40.8 MCV 81 MCH 26.9 L MCHC 33.2 RDW 18.1 H Plt Count 362 Seg Neutrophils % 60.5 Lymphocytes % 31.9 Monocytes % 5.3 Eosinophils % 1.8 Basophils % 0.5 Absolute Neutrophils 2.4 Absolute Lymphocytes 1.3 Absolute Monocytes 0.2 Absolute Eosinophils 0.1 Absolute Basophils 0.0 Sodium 135.3 L Potassium 4.2 Chloride 96 L Carbon Dioxide 30 Anion Gap 9 BUN 22 H Creatinine 1.17 Est GFR ( Amer) > 60 Est GFR (Non-Af Amer) > 60 Glucose 276 H Calcium 9.3 11/22/18 11/22/18 11/22/18 18:35 20:45 20:45 Creatine Kinase 54 L CK-MB (CK-2) Troponin I 0.026 Cancelled NT-Pro-B Natriuret Pep 1770 H 11/22/18 11/23/18 11/23/18 20:45 03:15 03:15 Creatine Kinase 45 L CK-MB (CK-2) 0.88 0.95 Troponin I 0.036 0.028 NT-Pro-B Natriuret Pep 11/23/18 11/23/18 11/24/18 08:54 08:54 01:03 Creatine Kinase 33 L 33 L CK-MB (CK-2) 0.78 Troponin I 0.019 NT-Pro-B Natriuret Pep 11/24/18 01:03 Creatine Kinase CK-MB (CK-2) 0.65 Troponin I 0.016 NT-Pro-B Natriuret Pep Impressions: Chest X-Ray 11/22/18 18:03 IMPRESSION: No evidence of acute cardiopulmonary disease. Head CT 11/22/18 18:03 IMPRESSION: NO ACUTE INTRACRANIAL IMAGING FINDINGS. EVIDENCE OF ACUTE STROKE: NO. Chest CT 11/22/18 21:43 IMPRESSION: Negative for acute intrathoracic process TECHNICAL DOCUMENTATION: Quality ID # 436: Final reports with documentation of one or more dose reduction techniques (e.g., Automated exposure control, adjustment of the mA and/or kV according to patient size, use of iterative reconstruction technique) copyright 2011 [employer]- All Rights Reserved Carotid Doppler Study 11/23/18 00:00 IMPRESSION: NO HEMODYNAMICALLY SIGNIFICANT STENOSIS. Assessment & Plan - Diagnosis (1) Acute combined systolic and diastolic ACC/AHA stage C congestive heart failure Is this a current diagnosis for this admission?: Yes Plan: Patient symptoms suggest diastolic heart failure (2) Syncopal episodes Qualifiers: Syncope type: unspecified Qualified Code(s): R55 - Syncope and collapse Is this a current diagnosis for this admission?: Yes (3) Chronic kidney disease, stage II (mild) Is this a current diagnosis for this admission?: Yes
--- NOTE | 2018-11-24 21:32 | PDOC CONSULTATION ---
Consultation-Blank Consultation: CARDIOLOGY CONSULTATION by Dr. Loyda Fernandes on 11/24/2018. Patient seen at 8 AM on 11/24/2018.
[2018-11-25] MEDS: HYDRALAZINE HCL 50 MG TABLET PO SCH ×3 (05:16→18:52)
[2018-11-25] MEDS: PANTOPRAZOLE SODIUM 20 MG TABLET.DR PO SCH (05:16)
[2018-11-25 05:46] LABS: ABSOLUTE EOSINOPHILS # (AUTO) 0.1 10^3/uL (0.0-0.6); ABSOLUTE LYMPHOCYTES (AUTO) 1.3 10^3/uL (0.5-4.7); ABSOLUTE MONOCYTES (AUTO) 0.3 10^3/uL (0.1-1.4); ABSOLUTE NEUT (AUTO) 2.4 10^3/uL (1.7-8.2); BASOPHILS % (AUTO) 1.1 % (0-2); EOSINOPHILS % (AUTO) 1.6 % (0-6); HEMATOCRIT 38.9 % (37.9-51.0); HEMOGLOBIN 12.9 g/dL (13.5-17.0); LYMPHOCYTES % (AUTO) 31.6 % (13-45); MEAN CORPUSCULAR HEMOGLOBIN 26.9 pg (27.0-33.4); MEAN CORPUSCULAR HGB CONC 33.2 g/dL (32.0-36.0); MEAN CORPUSCULAR VOLUME 81 fl (80-97); MONOCYTES % (AUTO) 6.7 % (3-13); PLATELET COUNT 289 10^3/uL (150-450); RED BLOOD COUNT 4.79 10^6/uL (4.35-5.55); TOTAL CELLS COUNTED % (AUTO) 100 %
[2018-11-25 06:07] LABS: ANION GAP 6 (5-19); BLOOD UREA NITROGEN 23 mg/dL (7-20); CALCIUM 9.3 mg/dL (8.4-10.2); CARBON DIOXIDE 33 mmol/L (22-30); CHLORIDE 96 mmol/L (98-107); GLUCOSE 249 mg/dL (75-110); POTASSIUM 3.9 mmol/L (3.6-5.0); SODIUM 135.4 mmol/L (137-145)
[2018-11-25] MEDS: AMLODIPINE BESYLATE 10 MG TABLET PO SCH (11:32)
[2018-11-25] MEDS: ASPIRIN 325 MG TABLET, ENT COATED PO SCH (11:32)
[2018-11-25] MEDS: CARVEDILOL 12.5 MG TABLET PO SCH ×2 (11:32→22:11)
[2018-11-25] MEDS: INSULIN LISPRO 100 UNIT/ML 3 ML VIAL SUBCUT SCH ×4 (11:32→22:11)
[2018-11-25] MEDS: BUMETANIDE INJ/PF 1 MG/4 ML SDV IV SCH ×2 (11:33→18:52)
[2018-11-25] MEDS: ENOXAPARIN SODIUM INJ 40 MG/0.4 ML DISP.SYRIN SUBCUT SCH (11:34)
[2018-11-25] MEDS: DOCUSATE SODIUM 100 MG CAPSULE PO SCH ×2 (11:34→18:55)
[2018-11-25] MEDS: CLOBETASOL PROPIONATE 0.05% OINTMENT 15 GM TP SCH ×2 (14:30→18:53)
[2018-11-25] MEDS: HYDROCODONE/ACETAMINOPHEN 10-325 MG TABLET PO PRN (14:36)
[2018-11-25 18:33] LABS: CREATINE KINASE MB 0.53 ng/mL (<4.55); TROPONIN I 0.014 ng/mL
--- NOTE | 2018-11-25 19:45 | PDOC PROGRESS REPORT ---
Subjective Progress Note for:: 11/25/18 Subjective:: Patient was admitted over the weekend when he presented with orthopnea, shortness of breath and syncope, he stated that his neighbor saw him unresponsive rescue squad was called to his residence and he was transferred to the hospital for evaluation. He has multiple hospital admissions he has multiple comorbid conditions including CAD, cardiomyopathy the last 2D echo that was done demonstrated ejection fraction 40% with moderate to severe concentric LVH with combined diastolic and systolic heart failure, psoriasis, nephrotic syndrome, diabetes mellitus. consultation obtained from cardiology for further diagnostic evaluation of his orthopnea that suggests acute on chronic systolic heart failure Reason For Visit: CHEST PAIN Physical Exam Vital Signs: Temp Pulse Resp BP Pulse Ox 97.2 F 71 14 118/62 100 11/25/18 15:07 11/25/18 18:55 11/25/18 15:07 11/25/18 15:07 11/25/18 15:07 Intake & Output 11/24/18 11/25/18 11/26/18 06:59 06:59 06:59 Intake Total 2082 636 1301 Output Total 5700 925 550 Balance 7 -289 751 Weight 104.8 kg 105.3 kg General appearance: PRESENT: no acute distress Eye exam: PRESENT: PERRLA Respiratory exam: PRESENT: clear to auscultation bernardo Cardiovascular exam: PRESENT: +S1, +S2 GI/Abdominal exam: PRESENT: soft Neurological exam: PRESENT: alert, CN II-XII grossly intact Results Laboratory Results: 11/25/18 05:22 11/25/18 05:22 11/25/18 11/25/18 05:22 05:22 WBC 4.0 RBC 4.79 Hgb 12.9 L Hct 38.9 MCV 81 MCH 26.9 L MCHC 33.2 RDW 18.0 H Plt Count 289 Seg Neutrophils % 59.0 Lymphocytes % 31.6 Monocytes % 6.7 Eosinophils % 1.6 Basophils % 1.1 Absolute Neutrophils 2.4 Absolute Lymphocytes 1.3 Absolute Monocytes 0.3 Absolute Eosinophils 0.1 Absolute Basophils 0.0 Sodium 135.4 L Potassium 3.9 Chloride 96 L Carbon Dioxide 33 H Anion Gap 6 BUN 23 H Creatinine 1.26 H Est GFR ( Amer) > 60 Est GFR (Non-Af Amer) > 60 Glucose 249 H Calcium 9.3 11/22/18 11/22/18 11/22/18 18:35 20:45 20:45 Creatine Kinase 54 L CK-MB (CK-2) Troponin I 0.026 Cancelled NT-Pro-B Natriuret Pep 1770 H 11/22/18 11/23/18 11/23/18 20:45 03:15 03:15 Creatine Kinase 45 L CK-MB (CK-2) 0.88 0.95 Troponin I 0.036 0.028 NT-Pro-B Natriuret Pep 11/23/18 11/23/18 11/24/18 08:54 08:54 01:03 Creatine Kinase 33 L 33 L CK-MB (CK-2) 0.78 Troponin I 0.019 NT-Pro-B Natriuret Pep 11/24/18 11/25/18 11/25/18 01:03 17:15 17:15 Creatine Kinase 35 L CK-MB (CK-2) 0.65 0.53 Troponin I 0.016 0.014 NT-Pro-B Natriuret Pep Impressions: Chest X-Ray 11/22/18 18:03 IMPRESSION: No evidence of acute cardiopulmonary disease. Head CT 11/22/18 18:03 IMPRESSION: NO ACUTE INTRACRANIAL IMAGING FINDINGS. EVIDENCE OF ACUTE STROKE: NO. Chest CT 11/22/18 21:43 IMPRESSION: Negative for acute intrathoracic process TECHNICAL DOCUMENTATION: Quality ID # 436: Final reports with documentation of one or more dose reduction techniques (e.g., Automated exposure control, adjustment of the mA and/or kV according to patient size, use of iterative reconstruction technique) copyright 2011 [employer]- All Rights Reserved Carotid Doppler Study 11/23/18 00:00 IMPRESSION: NO HEMODYNAMICALLY SIGNIFICANT STENOSIS. Assessment & Plan - Diagnosis (1) Acute combined systolic and diastolic ACC/AHA stage C congestive heart failure Is this a current diagnosis for this admission?: Yes Plan: Patient symptoms suggest diastolic heart failure (2) Syncopal episodes Qualifiers: Syncope type: unspecified Qualified Code(s): R55 - Syncope and collapse Is this a current diagnosis for this admission?: Yes (3) Chronic kidney disease, stage II (mild) Is this a current diagnosis for this admission?: Yes
--- NOTE | 2018-11-25 21:48 | Progress Note ---
Provider Note Provider Note: CARDIOLOGY PROGRESS NOTE by Dr. Loyda Fernandes on 11/25/2018. SUBJECTIVE: The patient states that his chest pain is much improved. But he still has some tenderness on palpation of his chest. He denies any chest pain suggestive of angina or angina equivalent. All he has this chest wall pain. There is no shortness of breath. There is no PND orthopnea. There is no atrial or ventricular arrhythmia seen on the monitor. There is no pedal edema. There is no TIA or CVA symptoms. PHYSICAL EXAMINATION: The patient is mild to moderately obese. He is well- groomed. On initial examination he was in no acute distress. Selected Entries 11/25/18 11/25/18 19:54 20:00 Temperature 98.3 F Temperature Oral Source Pulse Rate 60 Heart Rate ( 62 Monitors) Respiratory 18 Rate Blood Pressure 135/83 H Blood Pressure 100 Mean BP Location Right Arm BP Position Sitting O2 Sat by Pulse 100 Oximetry Oxygen Delivery Room Air Method HEAD: Is atraumatic normocephalic PERRLA. EYES: Pupils are equal round regular reactive to light accommodation. There is no conjunctival pallor. There is no scleral icterus. EARS: External auditory canals are clear. Tympanic membranes are intact. NOSE: Nasal mucous membranes are not inflamed. There is no deviated nasal septum. MOUTH: Mucous membranes of mouth are moist. Tongue is moist. There is no ulcers in the mouth. There is no bleeding from the gums. THROAT: There is no redness of the oropharynx. There is no exudates in the throat. SKIN: There is some psoriatic plaques. There is no petechia or ecchymosis. NECK: Is supple. There is no JVD. Carotids are equal there is no bruit. There is no lymphadenopathy. There is no goiter. There is no accessory muscles of respiration use. Trachea central. LUNGS: There is a few dry crackles in the right lower lobe. There is no rales of CHF. There is no chest wall tenderness. HEART: S1-S2 is heard. S1 is of normal intensity. There is an S4 gallop present. There is no S3 gallop. There is systolic murmur left sternal border and the apex. There is no rub. ABDOMEN: Is soft. Nontender. Bowel sounds are well heard. There is no hepatosplenomegaly. There is no guarding rebound or rigidity. EXTREMITIES: Femorals are slightly diminished. There is no femoral bruits. Leg pulses are well felt.. There is no pedal edema. There is no DVT or cellulitis. There is no calf tenderness. There is no cyanosis or clubbing. REFUELER: The patient is conscious awake alert oriented x3. There is mild residual left sided weakness. PSYCHIATRIC: The patient judgment and insight are intact his affect is normal. Labs- All tests 24 hr 11/25/18 11/25/18 11/25/18 05:22 05:22 07:36 WBC 4.0 RBC 4.79 Hgb 12.9 L Hct 38.9 MCV 81 MCH 26.9 L MCHC 33.2 RDW 18.0 H Plt Count 289 Seg Neutrophils % 59.0 Lymphocytes % 31.6 Monocytes % 6.7 Eosinophils % 1.6 Basophils % 1.1 Absolute Neutrophils 2.4 Absolute Lymphocytes 1.3 Absolute Monocytes 0.3 Absolute Eosinophils 0.1 Absolute Basophils 0.0 Sodium 135.4 L Potassium 3.9 Chloride 96 L Carbon Dioxide 33 H Anion Gap 6 BUN 23 H Creatinine 1.26 H Est GFR ( Amer) > 60 Est GFR (Non-Af Amer) > 60 Glucose 249 H POC Glucose 205 H Calcium 9.3 Creatine Kinase CK-MB (CK-2) Troponin I 11/25/18 11/25/18 11/25/18 16:12 17:15 17:15 WBC RBC Hgb Hct MCV MCH MCHC RDW Plt Count Seg Neutrophils % Lymphocytes % Monocytes % Eosinophils % Basophils % Absolute Neutrophils Absolute Lymphocytes Absolute Monocytes Absolute Eosinophils Absolute Basophils Sodium Potassium Chloride Carbon Dioxide Anion Gap BUN Creatinine Est GFR ( Amer) Est GFR (Non-Af Amer) Glucose POC Glucose 194 H Calcium Creatine Kinase 35 L CK-MB (CK-2) 0.53 Troponin I 0.014 11/25/18 21:21 WBC RBC Hgb Hct MCV MCH MCHC RDW Plt Count Seg Neutrophils % Lymphocytes % Monocytes % Eosinophils % Basophils % Absolute Neutrophils Absolute Lymphocytes Absolute Monocytes Absolute Eosinophils Absolute Basophils Sodium Potassium Chloride Carbon Dioxide Anion Gap BUN Creatinine Est GFR ( Amer) Est GFR (Non-Af Amer) Glucose POC Glucose 386 H Calcium Creatine Kinase CK-MB (CK-2) Troponin I MPRESSION/RECOMMENDATION: 1. NON-CARDIAC CHEST PAIN: Much improved we will try to discuss with the pain management doctor who sees the patient as an outpatient. 2.Uncontrolled hypertension: On admission. At present blood pressure is very well controlled. Continue the patient on hydralazine, and clonidine and current medications. 3. History of nephrotic range proteinuria: This could be secondary to patient's diabetic nephropathy compounded by the patient's uncontrolled hypertension. 4. Coronary artery disease. History of old IA, and history of stent placement. [facility] Showed nonobstructive coronary artery disease, with patent stents. At that time his echo LV ejection fraction was 55%. 5. Diabetes mellitus: Continue the patient's current antidiabetic medication. 6. History of old CVA, with residual left-sided weakness. 7. Chronic systolic and diastolic heart failure: At present compensated 8. Cardiomyopathy with moderately reduced LV ejection fraction by echo of 03/2018 We will recheck the patient's echo. This can be done as an outpatient. 9 History of psoriasis. 10. History of migraines: At present the patient with no headache Medications reviewed. Management plan discussed with attending physician on the case. Medical decision making now is of moderate complexity. Importance of outpatient follow-up discussed with the patient. I have given him my cell phone number and have asked him to call me and also my office number to make an appointment to see me. The importance of follow-up discussed with the patient. Also the importance of compliance with medication discussed with the patient. 40 minutes spent on this patient more than 50% of time spent in direct patient care. Will discuss with the patient's pain management doctor who sees the patient has an outpatient regarding optimal chest wall pain control. Cardiac status is stable will sign off. ADDENDUM: Prior to seeing the patient I have asked the nurse taking care of him [Mr. Saavedra]. This was due to the concern for the patient's prior uncontrolled blood pressure. The nurse voiced his concerns that the patient is ordering food outside and the nurse was concerned and conveyed this concern to me , and that the patient is not following a low sodium diet. I did see that the patient had ordered food outside. The patient overheard this, and since the door was closed he did not know who Mr. Saavedra was speaking to. He thought that the nurse was talking to another nurse and got upset. I convulsed for the fact that Mr. Saavedra did not speak to any of the nurse except me, which I cannot consider part of his duties towards the well-being of the patient, and help me as a doctor to give appropriate and excellent state of the art care to the patient. I had to convince the patient that the nurse had concern for the patient's well-being and had conveyed this concern to me which is part I consider the nurses professional duty, and to inform the doctor to stay abreast of the patient's compliance with medications and diet. The patient initially wanted to leave and go home right away. But I did convince the patient that the nurse did not hold any ill inten tions, especially towards the patient. But to smooth out things I have asked Mrs. Saavedra not to take care of the patient tonight, and have some other nurse take an assignment to take care of the patient tonight until the next shift.
[2018-11-26] MEDS: HYDRALAZINE HCL 50 MG TABLET PO SCH ×4 (00:39→17:29)
[2018-11-26 01:51] LABS: CREATINE KINASE MB 0.53 ng/mL (<4.55); TROPONIN I 0.014 ng/mL
[2018-11-26] MEDS: HYDROCODONE/ACETAMINOPHEN 10-325 MG TABLET PO PRN (02:22)
[2018-11-26] MEDS: PANTOPRAZOLE SODIUM 20 MG TABLET.DR PO SCH (06:14)
[2018-11-26] MEDS: DOCUSATE SODIUM 100 MG CAPSULE PO SCH ×2 (08:43→17:22)
[2018-11-26] MEDS: INSULIN LISPRO 100 UNIT/ML 3 ML VIAL SUBCUT SCH ×4 (08:44→21:49)
[2018-11-26] MEDS: BUMETANIDE INJ/PF 1 MG/4 ML SDV IV SCH ×2 (08:44→17:29)
[2018-11-26] MEDS: CARVEDILOL 12.5 MG TABLET PO SCH ×2 (08:44→21:49)
[2018-11-26] MEDS: AMLODIPINE BESYLATE 10 MG TABLET PO SCH (08:44)
[2018-11-26] MEDS: ASPIRIN 325 MG TABLET, ENT COATED PO SCH (08:45)
[2018-11-26] MEDS: ENOXAPARIN SODIUM INJ 40 MG/0.4 ML DISP.SYRIN SUBCUT SCH (08:45)
[2018-11-26 09:20] LABS: ANION GAP 13 (5-19); BLOOD UREA NITROGEN 22 mg/dL (7-20); CALCIUM 9.6 mg/dL (8.4-10.2); CARBON DIOXIDE 30 mmol/L (22-30); CHLORIDE 97 mmol/L (98-107); GLUCOSE 212 mg/dL (75-110); POTASSIUM 3.9 mmol/L (3.6-5.0); SODIUM 139.8 mmol/L (137-145)
[2018-11-26 09:26] LABS: CREATINE KINASE MB 0.55 ng/mL (<4.55); TROPONIN I 0.021 ng/mL
[2018-11-26] MEDS: CLOBETASOL PROPIONATE 0.05% OINTMENT 15 GM TP SCH ×2 (12:11→17:31)
--- NOTE | 2018-11-26 13:32 | PDOC DISCHARGE SUMMARY ---
General - Admit/Disc Date/PCP Admission Date/Primary Care Provider: 11/22/18 21:36 KARTHIK RICCI MD Discharge Date: 11/26/18 - Discharge Diagnosis (1) Acute combined systolic and diastolic ACC/AHA stage C congestive heart failure Is this a current diagnosis for this admission?: Yes (2) Syncopal episodes Is this a current diagnosis for this admission?: Yes (3) Chronic kidney disease, stage II (mild) Is this a current diagnosis for this admission?: Yes - Additional Information Discharge Diet: Cardiac, Diabetic Discharge Activity: Activity As Tolerated, Balance Activity w/Rest, Weigh Daily Home Medications: Amlodipine Besylate [Norvasc 10 mg Tablet] 10 mg PO DAILY MDD 07/22/18 10/13/18 Apremilast [Otezla] 30 mg PO BID MDD LAST FILLED 07/24/18 10/13/18 Aspirin [Ecotrin 325 mg EC Tablet] 325 mg PO DAILY 10/13/18 Carvedilol [Coreg 12.5 mg Tablet] 12.5 mg PO Q12 MDD LAST FILLED 07/22/18 10/13/18 Clobetasol Propionate [Temovate 0.05% Cream 15 gm] 1 applic TOP BID MDD LAST FILLED 09/08/18 10/13/18 Clonidine HCl [Catapres 0.1 mg Tablet] 0.1 mg PO Q8 MDD LAST FILLED 07/24/18 10/13/18 Hydrocodone/Acetaminophen [[place] 10-325 Tablet] 1 tab PO Q8HP PRN 10/13/18 Isosorb Dinit/Hydralazine HCl [Bidil 20-37.5 mg Tablet] 1 tab PO Q8 MDD LAST FILLED 07/22/18 10/13/18 Metolazone [Zaroxolyn 5 mg Tablet] 2.5 mg PO DAILY MDD 07/22/18 10/13/18 Sacubitril/Valsartan [Entresto 49 mg/51 mg Tablet] 1 tab PO Q12 10/13/18 Sitagliptin Phos/Metformin HCl [Janumet 50-1,000 mg Tablet] 1 tab PO BID MDD LAST FILLED 07/22/18 10/13/18 Spironolactone [Aldactone 25 mg Tablet] 25 mg PO Q12 MDD LAST FILLED 1/29/19 04/22/19 Bumetanide 2 mg PO BID MDD LAST FILLED 07/23/18 11/23/18 History of Present Illness History of Present Illness: SHARON JERONIMO is a 48 year old male Physical Exam Vital Signs: Temp Pulse Resp BP Pulse Ox 97.4 F 67 16 116/62 100 11/26/18 13:14 11/26/18 13:14 11/26/18 13:14 11/26/18 13:14 11/26/18 13:14 Intake & Output 11/25/18 11/26/18 11/27/18 06:59 06:59 06:59 Intake Total 636 1301 Output Total 925 1000 Balance -289 301 Weight 105.3 kg 106.5 kg Results Laboratory Results: 11/25/18 05:22 11/26/18 08:11 11/26/18 08:11 Sodium 139.8 Potassium 3.9 Chloride 97 L Carbon Dioxide 30 Anion Gap 13 BUN 22 H Creatinine 1.23 Est GFR ( Amer) > 60 Est GFR (Non-Af Amer) > 60 Glucose 212 H Calcium 9.6 11/22/18 11/22/18 11/22/18 18:35 20:45 20:45 Creatine Kinase 54 L CK-MB (CK-2) Troponin I 0.026 Cancelled NT-Pro-B Natriuret Pep 1770 H 11/22/18 11/23/18 11/23/18 20:45 03:15 03:15 Creatine Kinase 45 L CK-MB (CK-2) 0.88 0.95 Troponin I 0.036 0.028 NT-Pro-B Natriuret Pep 11/23/18 11/23/18 11/24/18 08:54 08:54 01:03 Creatine Kinase 33 L 33 L CK-MB (CK-2) 0.78 Troponin I 0.019 NT-Pro-B Natriuret Pep 11/24/18 11/25/18 11/25/18 01:03 17:15 17:15 Creatine Kinase 35 L CK-MB (CK-2) 0.65 0.53 Troponin I 0.016 0.014 NT-Pro-B Natriuret Pep 11/26/18 11/26/18 11/26/18 00:57 00:57 08:11 Creatine Kinase 24 L 33 L CK-MB (CK-2) 0.53 Troponin I 0.014 NT-Pro-B Natriuret Pep 11/26/18 08:11 Creatine Kinase CK-MB (CK-2) 0.55 Troponin I 0.021 NT-Pro-B Natriuret Pep Impressions: Chest X-Ray 11/22/18 18:03 IMPRESSION: No evidence of acute cardiopulmonary disease. Head CT 11/22/18 18:03 IMPRESSION: NO ACUTE INTRACRANIAL IMAGING FINDINGS. EVIDENCE OF ACUTE STROKE: NO. Chest CT 11/22/18 21:43 IMPRESSION: Negative for acute intrathoracic process TECHNICAL DOCUMENTATION: Quality ID # 436: Final reports with documentation of one or more dose reduction techniques (e.g., Automated exposure control, adjustment of the mA and/or kV according to patient size, use of iterative reconstruction technique) copyright 2011 [employer]- All Rights Reserved Carotid Doppler Study 11/23/18 00:00 IMPRESSION: NO HEMODYNAMICALLY SIGNIFICANT STENOSIS.
[2018-11-26] MEDS ORDERED: HEPARIN SODIUM,PORCINE/D5W 25,000 UNIT/250 ML RTUINJ IV PRN (14:30)
[2018-11-26] MEDS ORDERED: HEPARIN SOD (PORCINE) 1,000 UNIT/ML 10 ML VIAL IV PRN (14:30)
[2018-11-26] MEDS ORDERED: HEPARIN SOD (PORCINE) 1,000 UNIT/ML 10 ML VIAL ONE (14:46)
[2018-11-26] MEDS: HEPARIN SOD (PORCINE) 1,000 UNIT/ML 10 ML VIAL IV PRN (14:54)
[2018-11-26] MEDS: HEPARIN SODIUM,PORCINE/D5W 25,000 UNIT/250 ML RTUINJ IV PRN (14:55)
[2018-11-26 14:56] LABS: ABSOLUTE EOSINOPHILS # (AUTO) 0.1 10^3/uL (0.0-0.6); ABSOLUTE LYMPHOCYTES (AUTO) 0.8 10^3/uL (0.5-4.7); ABSOLUTE MONOCYTES (AUTO) 0.3 10^3/uL (0.1-1.4); ABSOLUTE NEUT (AUTO) 3.1 10^3/uL (1.7-8.2); BASOPHILS % (AUTO) 1.1 % (0-2); EOSINOPHILS % (AUTO) 1.6 % (0-6); HEMATOCRIT 38.9 % (37.9-51.0); HEMOGLOBIN 12.7 g/dL (13.5-17.0); LYMPHOCYTES % (AUTO) 19.3 % (13-45); MEAN CORPUSCULAR HEMOGLOBIN 26.7 pg (27.0-33.4); MEAN CORPUSCULAR HGB CONC 32.6 g/dL (32.0-36.0); MEAN CORPUSCULAR VOLUME 82 fl (80-97); MONOCYTES % (AUTO) 5.9 % (3-13); PLATELET COUNT 290 10^3/uL (150-450); RED BLOOD COUNT 4.75 10^6/uL (4.35-5.55); RED CELL DISTRIBUTION WIDTH 18.2 % (11.5-14.0); SEGMENTED NEUTROPHILS % (AUTO) 72.1 % (42-78); TOTAL CELLS COUNTED % (AUTO) 100 %; WHITE BLOOD COUNT 4.3 10^3/uL (4.0-10.5)
--- NOTE | 2018-11-26 14:59 | PDOC TRANSFER SUMMARY ---
General Admission Date/PCP: 11/22/18 21:36 KARTHIK RICCI MD Transfer Date: 11/27/18 Accepting Facility: [facility] - Transfer Diagnosis (1) Acute combined systolic and diastolic ACC/AHA stage C congestive heart failure Is this a current diagnosis for this admission?: Yes (2) Syncopal episodes Is this a current diagnosis for this admission?: Yes (3) Chronic kidney disease, stage II (mild) Is this a current diagnosis for this admission?: Yes (4) Chest pain Is this a current diagnosis for this admission?: Yes - Transfer Medications Home Medications: Amlodipine Besylate [Norvasc 10 mg Tablet] 10 mg PO DAILY MDD 07/22/18 10/13/18 Apremilast [Otezla] 30 mg PO BID MDD LAST FILLED 07/24/18 10/13/18 Aspirin [Ecotrin 325 mg EC Tablet] 325 mg PO DAILY 10/13/18 Carvedilol [Coreg 12.5 mg Tablet] 12.5 mg PO Q12 MDD LAST FILLED 07/22/18 Clobetasol Propionate [Temovate 0.05% Cream 15 gm] 1 applic TOP BID MDD LAST FILLED 09/08/18 10/13/18 Clonidine HCl [Catapres 0.1 mg Tablet] 0.1 mg PO Q8 MDD LAST FILLED 07/24/18 10/13/18 Hydrocodone/Acetaminophen [[place] 10-325 Tablet] 1 tab PO Q8HP PRN 10/13/18 Isosorb Dinit/Hydralazine HCl [Bidil 20-37.5 mg Tablet] 1 tab PO Q8 MDD LAST FILLED 07/22/18 10/13/18 Metolazone [Zaroxolyn 5 mg Tablet] 2.5 mg PO DAILY MDD 07/22/18 10/13/18 Sacubitril/Valsartan [Entresto 49 mg/51 mg Tablet] 1 tab PO Q12 10/13/18 Sitagliptin Phos/Metformin HCl [Janumet 50-1,000 mg Tablet] 1 tab PO BID MDD LAST FILLED 07/22/18 10/13/18 Spironolactone [Aldactone 25 mg Tablet] 25 mg PO Q12 MDD LAST FILLED 07/22/18 10/13/18 Bumetanide 2 mg PO BID MDD LAST FILLED 07/23/18 11/23/18 Transfer Medications: Current Medications Acetaminophen (Tylenol 325 Mg Tablet) 650 mg PO Q4HP PRN PRN Reason: FOR PAIN OR TEMP Stop: 12/22/18 20:49 Last Admin: 11/23/18 02:24 Dose: 650 mg Documented by: Hydrocodone Bitart/Acetaminophen ([place] 10-325 Mg Tablet) 1 tab PO Q8HP PRN PRN Reason: FOR PAIN Stop: 11/29/18 21:01 Last Admin: 11/26/18 02:22 Dose: 1 tab Documented by: Albuterol/Ipratropium (Duoneb 3 Ml Ampul) 3 ml NEB RTQ8HP PRN PRN Reason: SHORTNESS OF BREATH Stop: 12/22/18 20:49 Last Admin: 11/23/18 14:23 Dose: 3 ml Documented by: Amlodipine Besylate (Norvasc 10 Mg Tablet) 10 mg PO DAILY [facility] Stop: 12/23/18 09:59 Last Admin: 11/26/18 08:44 Dose: 10 mg Documented by: Aspirin (Ecotrin 325 Mg Ec Tablet) 325 mg PO DAILY [facility] Stop: 12/23/18 09:59 Last Admin: 11/26/18 08:45 Dose: 325 mg Documented by: Bumetanide (Bumex Inj/Pf 1 Mg/4 Ml Sdv) 1 mg IV BID [facility] Stop: 12/23/18 09:59 Last Admin: 11/26/18 08:44 Dose: 1 mg Documented by: Carvedilol (Coreg 12.5 Mg Tablet) 12.5 mg PO Q12 [facility] Stop: 12/22/18 21:59 Last Admin: 11/26/18 08:44 Dose: 12.5 mg Documented by: Clobetasol Propionate (Temovate 0.05% Ointment 15 Gm) 1 applic TP BID [facility] Stop: 12/24/18 10:59 Last Admin: 11/26/18 12:11 Dose: 1 applic Documented by: Dextrose (Dextrose Inj 50% Syringe (25 Gm/50 Ml)) 25 gm IV PRN PRN; Protocol PRN Reason: PER PROTOCOL Stop: 12/22/18 21:36 Dextrose (Dextrose Inj 50% Syringe (25 Gm/50 Ml)) 12.5 gm IV PRN PRN; Protocol PRN Reason: FOR BG 50-69 IN ALERT PATIENT Stop: 12/22/18 21:36 Docusate Sodium (Colace 100 Mg Capsule) 100 mg PO BID [facility] Stop: 12/23/18 09:59 Last Admin: 11/26/18 08:43 Dose: Not Given Documented by: Enoxaparin Sodium (Lovenox Inj 40 Mg/0.4 Ml Disp.Syrin) 40 mg SUBCUT DAILY [facility] Stop: 12/23/18 09:59 Last Admin: 11/26/18 08:45 Dose: Not Given Documented by: Glucagon (Glucagen Inj 1 Mg Vial) 1 mg IM PRN PRN; Protocol PRN Reason: Evaluate for BG < 70 Stop: 12/22/18 21:36 Glucose (Glutose 40% Gel 15 Gm Tube) 15 gm PO PRN PRN; Protocol PRN Reason: FOR BG 50-69 IN ALERT PATIENT Stop: 12/22/18 21:36 Glucose (Glutose 40% Gel 15 Gm Tube) 30 gm PO PRN PRN; Protocol PRN Reason: FOR BG < 50 IN ALERT PATIENT Stop: 12/22/18 21:36 Heparin Sodium (Porcine) (Heparin Inj 1,000 Unit/Ml 10 Ml Vial) 0 - 12,000 unit IV .BOLUS PER PROTOCOL PRN; Protocol PRN Reason: RESPOND TO aPTT VALUE Stop: 12/26/18 16:36 Hydralazine HCl (Apresoline Inj/Pf 20 Mg/1 Ml Sdv) 10 mg IV Q4HP PRN PRN Reason: GIVE FOR SBP > [170] Stop: 12/22/18 20:56 Hydralazine HCl (Apresoline 50 Mg Tablet) 75 mg PO Q6 [facility] Stop: 12/25/18 00:00 Last Admin: 11/26/18 12:11 Dose: 75 mg Documented by: Heparin Sodium/Dextrose (Heparin Rtu 25,000 Unit/250 Ml D5w Premix) 25,000 unit in 250 mls @ 0 mls/hr IV CONTINUOUS PRN; Protocol PRN Reason: THIS MED IS NOT "PRN" Stop: 12/26/18 13:35 Insulin Human Lispro (Humalog Insulin 100 Unit/1 Ml 3 Ml Vial) 0 - 12 unit SUBCUT ACHS [facility]; Protocol Stop: 12/22/18 21:59 Last Admin: 11/26/18 12:11 Dose: 2 unit Documented by: Pantoprazole Sodium (Protonix [address] Tablet) 20 mg PO Q6AM [facility] Stop: 12/23/18 05:59 Last Admin: 11/26/18 06:14 Dose: 20 mg Documented by: - Allergies Allergies/Adverse Reactions: shellfish derived Allergy (Severe, Verified 10/27/18 11:26) morphine [Morphine] Allergy (Mild, Verified 10/27/18 11:26) Shellfish * [Shellfish] Allergy (Mild, Verified 10/27/18 11:26) Anaphylaxis cyclobenzaprine [From Flexeril] Allergy (Verified 10/27/18 11:26) diazepam [From Valium] Allergy (Verified 10/27/18 11:26) diphenhydramine Allergy (Verified 10/27/18 11:26) furosemide [From Lasix] Allergy (Verified 10/27/18 11:26) - Diet/Activity Discharge Diet: Cardiac, Diabetic Hospital Course Hospital Course: Patient 48-year-old male with multiple comorbid conditions including severe plaque psoriasis, type 2 diabetes mellitus complicated with nephrotic range proteinuria, coronary artery disease with stent placement, ischemic car diomyopathy, recent 2D echo that was done last month demonstrated ejection fraction of 40%. He has multiple hospitalization for evaluation of chest pains,, he presented over the weekend with orthopnea, shortness of breath, syncope. He stated that he was found unresponsive, he continues to complain of chest pain/chest pressure, the cardiac enzymes are indeterminate, he was seen by cardiology, Dr. Fernandes, he felt that it is best to have patient get cardiac catheterization. Patient has been transferred to [place] for cardiac catheterization the initial intent was to discharge him home today with outpatient follow-up with cardiology, he was already being discharged then he complained of chest pressure on mild exertion, the discharge was canceled and he was started on intravenous heparin partly because I cannot completely rule out acute coronary syndrome in this patient with high risk for ischemia including history of CAD, psoriasis, hypertension, diabetes mellitus Physical Exam Vital Signs: Temp Pulse Resp BP Pulse Ox 97.4 F 67 16 116/62 100 11/26/18 13:14 11/26/18 13:14 11/26/18 13:14 11/26/18 13:14 11/26/18 13:14 Intake & Output 11/25/18 11/26/18 11/27/18 06:59 06:59 06:59 Intake Total 636 1301 Output Total 925 1000 Balance -289 301 Weight 105.3 kg 106.5 kg General appearance: PRESENT: no acute distress Head exam: PRESENT: atraumatic, normocephalic Eye exam: PRESENT: PERRLA Ear exam: PRESENT: normal external ear exam Mouth exam: PRESENT: moist, tongue midline Respiratory exam: PRESENT: clear to auscultation bernardo Cardiovascular exam: PRESENT: RRR, +S1, +S2 Pulses: PRESENT: normal dorsalis pedis pul Vascular exam: PRESENT: normal capillary refill GI/Abdominal exam: PRESENT: normal bowel sounds, soft Rectal exam: PRESENT: deferred Extremities exam: PRESENT: full ROM Neurological exam: PRESENT: alert, CN II-XII grossly intact Psychiatric exam: PRESENT: appropriate affect, normal mood Skin exam: PRESENT: dry, intact, warm Results Laboratory Results: 11/25/18 05:22 11/26/18 08:11 11/26/18 08:11 Sodium 139.8 Potassium 3.9 Chloride 97 L Carbon Dioxide 30 Anion Gap 13 BUN 22 H Creatinine 1.23 Est GFR ( Amer) > 60 Est GFR (Non-Af Amer) > 60 Glucose 212 H Calcium 9.6 11/22/18 11/22/18 11/22/18 18:35 20:45 20:45 Creatine Kinase 54 L CK-MB (CK-2) Troponin I 0.026 Cancelled NT-Pro-B Natriuret Pep 1770 H 11/22/18 11/23/18 11/23/18 20:45 03:15 03:15 Creatine Kinase 45 L CK-MB (CK-2) 0.88 0.95 Troponin I 0.036 0.028 NT-Pro-B Natriuret Pep 11/23/18 11/23/18 11/24/18 08:54 08:54 01:03 Creatine Kinase 33 L 33 L CK-MB (CK-2) 0.78 Troponin I 0.019 NT-Pro-B Natriuret Pep 11/24/18 11/25/18 11/25/18 01:03 17:15 17:15 Creatine Kinase 35 L CK-MB (CK-2) 0.65 0.53 Troponin I 0.016 0.014 NT-Pro-B Natriuret Pep 11/26/18 11/26/1811/26/19 00:57 00:57 08:11 Creatine Kinase 24 L 33 L CK-MB (CK-2) 0.53 Troponin I 0.014 NT-Pro-B Natriuret Pep 11/26/18 08:11 Creatine Kinase CK-MB (CK-2) 0.55 Troponin I 0.021 NT-Pro-B Natriuret Pep Impressions: Chest X-Ray 11/22/18 18:03 IMPRESSION: No evidence of acute cardiopulmonary disease. Head CT 11/22/18 18:03 IMPRESSION: NO ACUTE INTRACRANIAL IMAGING FINDINGS. EVIDENCE OF ACUTE STROKE: NO. Chest CT 11/22/18 21:43 IMPRESSION: Negative for acute intrathoracic process TECHNICAL DOCUMENTATION: Quality ID # 436: Final reports with documentation of one or more dose reduction techniques (e.g., Automated exposure control, adjustment of the mA and/or kV according to patient size, use of iterative reconstruction technique) copyright 2011 [employer]- All Rights Reserved Carotid Doppler Study 11/23/18 00:00 IMPRESSION: NO HEMODYNAMICALLY SIGNIFICANT STENOSIS.
[2018-11-26 15:03] LABS: INTERNATIONAL RATION (INR) 0.98; PROTHROMBIN TIME 13.5 SEC (11.4-15.4)
[2018-11-26 15:04] LABS: PARTIAL THROMBOPLASTIN TIME 33.1 SEC (23.5-35.8)
[2018-11-27] MEDS: HYDRALAZINE HCL 50 MG TABLET PO SCH ×2 (00:43→05:34)
[2018-11-27] MEDS: HYDROCODONE/ACETAMINOPHEN 10-325 MG TABLET PO PRN (00:49)
[2018-11-27] MEDS: HEPARIN SOD (PORCINE) 1,000 UNIT/ML 10 ML VIAL IV PRN (01:48)
[2018-11-27] MEDS: PANTOPRAZOLE SODIUM 20 MG TABLET.DR PO SCH (05:34)
[2018-11-27 08:55] VITALS: BP 144/98
[2018-11-27] MEDS: INSULIN LISPRO 100 UNIT/ML 3 ML VIAL SUBCUT SCH (08:57)
[2018-11-27] MEDS: CARVEDILOL 12.5 MG TABLET PO SCH (09:00)
[2018-11-27] MEDS: BUMETANIDE INJ/PF 1 MG/4 ML SDV IV SCH (09:00)
[2018-11-27] MEDS: AMLODIPINE BESYLATE 10 MG TABLET PO SCH (09:00)
[2018-11-27] MEDS: ASPIRIN 325 MG TABLET, ENT COATED PO SCH (09:01)
[2018-11-27] MEDS: DOCUSATE SODIUM 100 MG CAPSULE PO SCH (09:01)
[2018-11-27] MEDS: CLOBETASOL PROPIONATE 0.05% OINTMENT 15 GM TP SCH (09:09)
[2018-11-27] MEDS: HEPARIN SODIUM,PORCINE/D5W 25,000 UNIT/250 ML RTUINJ IV PRN (10:02)
== END 2018-11-27 11:03 | disposition short-term general hospital (02) ==
LOC: ER 17:31 → INTOOBSV 21:36 → EH 21:36 → 3W 23:35 → UNDODISOB 11-27 09:31
PROVIDERS: ADMIT Family Medicine; ATTEND Internal Medicine
DX: R07.89 Other chest pain (principal); I16.1 Hypertensive emergency; I13.0 Hypertensive heart and chronic kidney disease with heart failure and stage 1 through stage 4 chronic kidney disease, or unspecified chronic kidney disease; E11.22 Type 2 diabetes mellitus with diabetic chronic kidney disease; N18.2 Chronic kidney disease, stage 2 (mild); I50.43 Acute on chronic combined systolic (congestive) and diastolic (congestive) heart failure; R55 Syncope and collapse; L40.0 Psoriasis vulgaris; I25.10 Atherosclerotic heart disease of native coronary artery without angina pectoris; Z95.5 Presence of coronary angioplasty implant and graft; I69.354 Hemiplegia and hemiparesis following cerebral infarction affecting left non-dominant side; I42.9 Cardiomyopathy, unspecified; R80.8 Other proteinuria; G43.909 Migraine, unspecified, not intractable, without status migrainosus; E78.5 Hyperlipidemia, unspecified; I73.9 Peripheral vascular disease, unspecified; K21.9 Gastro-esophageal reflux disease without esophagitis; M19.90 Unspecified osteoarthritis, unspecified site; Z79.82 Long term (current) use of aspirin; Z79.899 Other long term (current) drug therapy; Z91.013 Allergy to seafood; Z88.8 Allergy status to other drugs, medicaments and biological substances
CPT/HCPCS: 36415; 70450; 71045; 71250; 80048; 80053; 81001; 82550; 82553; 82962; 83735; 83880; 84484; 85025; 85610; 85652; 85730; 86140; 87040; 93005; 93010; 93880; 94640; 96374; 96375; 96376; 99291; G0378; J0360; J1644; J1650; J1815; J3490; J7620

== ENCOUNTER 2019-01-21 11:23 | Emergency (ER) | payer MEDICARE, MEDICAID ==
[2019-01-21] MEDS ORDERED: ASPIRIN 81 MG TABLET, CHEWABLE PO ONE ×2 (11:46→12:00)
[2019-01-21 12:39] LABS: HEMATOCRIT 36.8 % (37.9-51.0); HEMOGLOBIN 12.3 g/dL (13.5-17.0); MEAN CORPUSCULAR HEMOGLOBIN 27.4 pg (27.0-33.4); MEAN CORPUSCULAR HGB CONC 33.3 g/dL (32.0-36.0); MEAN CORPUSCULAR VOLUME 82 fl (80-97); PLATELET COUNT 264 10^3/uL (150-450); RED BLOOD COUNT 4.47 10^6/uL (4.35-5.55); RED CELL DISTRIBUTION WIDTH 15.5 % (11.5-14.0); WHITE BLOOD COUNT 5.4 10^3/uL (4.0-10.5)
[2019-01-21 12:52] LABS: INTERNATIONAL RATION (INR) 1.06; PROTHROMBIN TIME 13.8 SEC (11.4-15.4)
[2019-01-21 12:53] LABS: PARTIAL THROMBOPLASTIN TIME 30.3 SEC (23.5-35.8)
[2019-01-21 13:03] LABS: ALANINE AMINOTRANSFERASE 7 U/L (21-72); ALBUMIN 3.5 g/dL (3.5-5.0); ALKALINE PHOSPHATASE 110 U/L (38-126); ANION GAP 6 (5-19); ASPARTATE AMINO TRANSFERASE 25 U/L (17-59); BILIRUBIN,DIRECT 0.3 mg/dL (0.0-0.4); BILIRUBIN,TOTAL 0.5 mg/dL (0.2-1.3); BLOOD UREA NITROGEN 17 mg/dL (7-20); CARBON DIOXIDE 32 mmol/L (22-30); CHLORIDE 96 mmol/L (98-107); CREATINE KINASE 69 U/L (55-170); POTASSIUM 3.4 mmol/L (3.6-5.0); TOTAL PROTEIN 7.4 g/dL (6.3-8.2)
--- NOTE | 2019-01-21 13:04 | RADIOLOGY REPORT (SQ) ---
EXAM DESCRIPTION: CHEST 2 VIEWS COMPLETED DATE/TIME: 01/21/2019 12:56 pm REASON FOR STUDY: cp COMPARISON: 11/22/2018 EXAM PARAMETERS: NUMBER OF VIEWS: two views TECHNIQUE: Digital Frontal and Lateral radiographic views of the chest acquired. RADIATION DOSE: NA LIMITATIONS: none FINDINGS: LUNGS AND PLEURA: No opacities, masses or pneumothorax. No pleural effusion. MEDIASTINUM AND HILAR STRUCTURES: No masses or contour abnormalities. HEART AND VASCULAR STRUCTURES: Heart is enlarged. There is mild central vascular prominence. BONES: No acute findings. HARDWARE: Sternotomy wires are in place. OTHER: No other significant finding. IMPRESSION: Cardiomegaly and mild central vascular congestion. No overt failure. No effusions. TECHNICAL DOCUMENTATION: JOB ID: [id number] Reading Room- All Rights Reserved Reading location - IP/workstation name: [email or web address]
[2019-01-21 13:11] LABS: ABSOLUTE LYMPHOCYTES# (MANUAL) 1.1 10^3/uL (0.5-4.7); ABSOLUTE MONOCYTES # (MANUAL) 0.1 10^3/uL (0.1-1.4); BASOPHILS % (MANUAL) 1 % (0-2); EOSINOPHILS % (MANUAL) 0 % (0-6); LYMPHOCYTES % (MANUAL) 20 % (13-45); MONOCYTES % (MANUAL) 1 % (3-13); SEGMENTED NEUTROPHILS % (MAN) 78 % (42-78); TOTAL CELLS COUNTED 100
[2019-01-21 13:13] LABS: GLUCOSE 417 mg/dL (75-110)
[2019-01-21 13:14] LABS: ANISOCYTOSIS 1+; OVALOCYTES SLIGHT; PLATELET COMMENT ADEQUATE; POIKILOCYTOSIS SLIGHT; TEAR DROP CELLS SLIGHT
[2019-01-21 13:18] LABS: CREATINE KINASE MB 0.88 ng/mL (<4.55); TROPONIN I 0.021 ng/mL
[2019-01-21] MEDS ORDERED: IBUPROFEN 800 MG TABLET PO ONE (13:22)
--- NOTE | 2019-01-21 13:43 | ER Document Report ---
ED General - General Chief Complaint: Chest Pain Stated Complaint: CHEST PAIN Time Seen by Provider: 01/21/19 11:37 Primary Care Provider: KARTHIK RICCI MD [Primary Care Provider] - Follow up as needed Mode of Arrival: Ambulatory Information source: Patient Notes: This 48-year-old male presents to the emergency department with complaints of chest pain. Reports he has had this chest pain for over a year. It intensified yesterday a.m. and this morning at around 02 100. He reports the pain was so bad he had to grab the bathroom counter. Reports he felt short of breath. He reports the pain is on his midsternal to the left chest. He reports it hurts when he raises his arms or when he palpate his chest. He reports pain has woken him out of his sleep. Patient has history of stroke, [place] hypertension high cholesterol diabetes. Patient reports he took all his medications today. Patient reports he has been eating drinking voiding as normal. Reports last bowel movement was yesterday which was normal. Patient reports he is taken nitro in the past but has not taken any today and he declines it now. Patient reports he has been evaluated for this chest pain in the past and they cannot find out what is going on. He reports he had a cath in 2018 and there were no blockages. TRAVEL OUTSIDE OF THE [place] IN LAST 30 DAYS: No - HPI Onset: Other Onset/Duration: Persistent Quality of pain: Sharp Severity: Severe Pain Level: 5 Associated symptoms: Shortness of breath Exacerbated by: Movement Relieved by: Denies Similar symptoms previously: Yes Recently seen / treated by doctor: No - Related Data Allergies/Adverse Reactions: shellfish derived Allergy (Severe, Verified 01/21/19 11:24) morphine [Morphine] Allergy (Mild, Verified 01/21/19 11:24) Shellfish * [Shellfish] Allergy (Mild, Verified 01/21/19 11:24) Anaphylaxis cyclobenzaprine [From Flexeril] Allergy (Verified 01/21/19 11:24) diazepam [From Valium] Allergy (Verified 01/21/19 11:24) diphenhydramine Allergy (Verified 01/21/19 11:24) furosemide [From Lasix] Allergy (Verified 01/21/19 11:24) Past Medical History - General Information source: Patient - Social History Smoking Status: Never Smoker Chew tobacco use (# tins/day): No Frequency of alcohol use: None Drug Abuse: None Lives with: Alone Family History: Reviewed & Not Pertinent, Arthritis, CAD, CVA, DM, Hyperlipidemia, Hypertension, Malignancy, Other Patient has suicidal ideation: No Patient has homicidal ideation: No - Past Medical History Cardiac Medical History: Reports: Hx Congestive Heart Failure, Hx Coronary Artery Disease, Hx DVT - right leg, Hx Heart Attack, Hx Hypercholesterolemia, Hx Hypertension, Hx Peripheral Vascular Disease, Hx Heart Murmur Pulmonary Medical History: Reports: Hx Pneumonia Denies: Hx Asthma, Hx COPD, Hx Tuberculosis Neurological Medical History: Reports: Hx Cerebrovascular Accident - Lt sided weakness-2018, Hx Migraine, Hx Seizures Endocrine Medical History: Reports: Hx Diabetes Mellitus Type 1, Hx Diabetes Mellitus Type 2. Denies: Hx Hyperthyroidism, Hx Hypothyroidism Renal/ Medical History: Reports: Hx Kidney Stones. Denies: Hx Peritoneal Dialysis GI Medical History: Reports: Hx Gastroesophageal Reflux Disease. Denies: Hx Cirrhosis, Hx Hepatitis Musculoskeletal Medical History: Reports Hx Arthritis, Reports Hx Muscle Weakness - Left Skin Medical History: Reports Hx Eczema, Denies Hx MRSA, Reports Hx Psoriasis Psychiatric Medical History: Denies: Hx Depression, Hx Schizoaffective Disorder Infectious Medical History: Denies: Hx Hepatitis, Hx MRSA Past Surgical History: Reports: Hx Cardiac Catheterization, Hx Cardiac Surgery - VSD having four previous surgeries as a child; heart valve defect, Hx Open Heart Surgery - VSD having five previous surgeries as a child; heart valve defect, Hx Vascular Surgery - Stents in right leg, Other - 4 separate operations for ventricular septal defect as a child.. Denies: Hx Pacemaker - Immunizations Immunizations up to date: Yes Hx Diphtheria, Pertussis, Tetanus Vaccination: Yes Hx Pneumococcal Vaccination: 03/24/18 Review of Systems - Review of Systems Notes: Review HPI for review of systems., All other systems negative Physical Exam - Vital signs Vitals: Temp Pulse Resp BP Pulse Ox 98.5 F 89 20 200/120 H 97 01/21/19 11:41 01/21/19 11:41 01/21/19 11:41 01/21/19 11:41 01/21/19 11:41 - General General appearance: Alert In distress: None - HEENT Head: Normocephalic Eyes: Normal Conjunctiva: Normal Neck: Normal, Supple. No: Lymphadenopathy - Respiratory Respiratory status: No respiratory distress Chest status: Nontender Breath sounds: Normal Chest palpation: Tender - Left side of his chest tender with palpation - Cardiovascular Rhythm: Regular Heart sounds: Normal auscultation Murmur: Yes - Abdominal Inspection: Normal Distension: No distension Bowel sounds: Normal Tenderness: Nontender Organomegaly: No organomegaly - Extremities General upper extremity: Normal ROM General lower extremity: Normal ROM - Neurological Neuro grossly intact: Yes Cognition: Normal Orientation: AAOx4 [place] Coma Scale Eye Opening: Spontaneous Eric Coma Scale Verbal: Oriented Eric Coma Scale Motor: Obeys Commands Eric Coma Scale Total: 15 Speech: Normal - Psychological Associated symptoms: Normal affect, Normal mood - Skin Skin Temperature: Warm Skin Moisture: Dry Skin Color: Normal Course - Re-evaluation Re-evalutation: 01/21/19 13:42 This 48-year-old male presents emergency department with history of chronic chest pain for the past year. Reports the chest pain intensified yesterday a.m. at around 02 100. He reports the chest pain was really intense he became short of breath. He reports chest pain was on the left side of his chest midsternal. Patient also reports it hurts more when he raises his arm or takes a deep breath. Chest wall is tender to palpation. He reports the pain woke him out of his sleep. Denies nausea vomiting diaphoresis. Will evaluate with chest x-ray labs. Patient was offered nitro for the chest pain but declined. Patient blood pressure is very high but he is not sure what medications he took have asked for the nurse to obtain med reconciliation. 01/21/19 Orders for blood pressure and diabetes and pain management. Patient reports he does not want to be here anymore he wants to leave. He is asking us to take the IV out of his hand. Dr. Ricci in the ED talked to patient, patient still reports he wants to leave. Did not wait for discharge instructions. The patient has decided not to proceed with further recommended testing or treatment to determine the cause of their symptoms. The risks and alternatives to the recommendations were discussed and the patient was understanding. The patient appears clinically to have the capacity to make this decision. Patient was instructed that he/she could return to the emergency department at any time to complete the testing treatment. 01/21/19 12:29 01/21/19 12:29 MCV 82 fl (80-97) 01/21/19 12:29 MCH 27.4 pg (27.0-33.4) 01/21/19 12:29 MCHC 33.3 g/dL (32.0-36.0) 01/21/19 12:29 RDW 15.5 % (11.5-14.0) H 01/21/19 12:29 Seg Neutrophils % Not Reportable 01/21/19 12:29 Lymphocytes % Not Reportable 01/21/19 12:29 Monocytes % Not Reportable 01/21/19 12:29 Eosinophils % Not Reportable 01/21/19 12:29 Basophils % Not Reportable 01/21/19 12:29 Absolute Neutrophils Not Reportable 01/21/19 12:29 Absolute Lymphocytes Not Reportable 01/21/19 12:29 Absolute Monocytes Not Reportable 01/21/19 12:29 Absolute Eosinophils Not Reportable 01/21/19 12:29 Absolute Basophils Not Reportable 01/21/19 12:29 Chloride 96 mmol/L (98-107) L 01/21/19 12:29 Carbon Dioxide 32 mmol/L (22-30) H 01/21/19 12:29 Anion Gap 6 (5-19) 01/21/19 12:29 Est GFR ( Amer) > 60 (>60) 01/21/19 12:29 Est GFR (Non-Af Amer) > 60 (>60) 01/21/19 12:29 Glucose 417 mg/dL (75-110) H* 01/21/19 12:29 Calcium 9.0 mg/dL (8.4-10.2) 01/21/19 12:29 Total Bilirubin 0.5 mg/dL (0.2-1.3) 01/21/19 12:29 AST 25 U/L (17-59) 01/21/19 12:29 ALT 7 U/L (21-72) L 01/21/19 12:29 Alkaline Phosphatase 110 U/L (38-126) 01/21/19 12:29 Total Protein 7.4 g/dL (6.3-8.2) 01/21/19 12:29 Albumin 3.5 g/dL (3.5-5.0) 01/21/19 12:29 01/21/19 01/21/19 12:29 12:29 Creatine Kinase 69 CK-MB (CK-2) 0.88 Troponin I 0.021 NT-Pro-B Natriuret Pep 2800 H Chest X-Ray 01/21/19 12:26 IMPRESSION: Cardiomegaly and mild central vascular congestion. No overt failure. No effusions. - Vital Signs Vital signs: Temp Pulse Resp BP Pulse Ox 98.5 F 89 18 194/134 H 98 01/21/19 11:41 01/21/19 11:41 01/21/19 14:01 01/21/19 14:01 01/21/19 14:01 - Laboratory Result Diagrams: 01/21/19 12:29 01/21/19 12:29 Laboratory results interpreted by me: 01/21/19 01/21/19 01/21/19 12:29 12:29 12:29 Hgb 12.3 L Hct 36.8 L RDW 15.5 H Monocytes % (Manual) 1 L Sodium 133.9 L Potassium 3.4 L Chloride 96 L Carbon Dioxide 32 H Glucose 417 H* ALT 7 L NT-Pro-B Natriuret Pep 2800 H Discharge - Discharge Clinical Impression: Chest pain Qualifiers: Chest pain type: unspecified Qualified Code(s): R07.9 - Chest pain, unspecified Condition: Stable Disposition: AGAINST MEDICAL ADVICE Referrals: KARTHIK RICCI MD [Primary Care Provider] - Follow up as needed
[2019-01-21] MEDS ORDERED: AMLODIPINE BESYLATE 10 MG TABLET PO ONE (13:48)
[2019-01-21] MEDS ORDERED: LIDOCAINE 5% (700 MG) TRANSDERMAL ADH..PATCH TP ONE (13:53)
[2019-01-21] MEDS ORDERED: SITAGLIPTIN PHOSPHATE 50 MG TABLET PO ONE (13:53)
[2019-01-21] MEDS ORDERED: METFORMIN HCL 500 MG TABLET PO ONE (13:54)
[2019-01-21 14:32] VITALS: BP 194/134
--- NOTE | 2019-01-22 08:08 | EKG REPORT ---
SEVERITY:- ABNORMAL ECG - SINUS RHYTHM LEFT ATRIAL ABNORMALITY LEFT ANTERIOR FASCICULAR BLOCK : Confirmed by: Loyda Fernandes MD 21-Jan-2019 21:28:29
== END 2019-01-21 14:36 | disposition left against medical advice (07) ==
LOC: ER 11:23
DX: R07.9 Chest pain, unspecified (principal); R06.02 Shortness of breath; R09.89 Other specified symptoms and signs involving the circulatory and respiratory systems; I11.9 Hypertensive heart disease without heart failure; I25.10 Atherosclerotic heart disease of native coronary artery without angina pectoris; I25.2 Old myocardial infarction; E11.51 Type 2 diabetes mellitus with diabetic peripheral angiopathy without gangrene; Z88.5 Allergy status to narcotic agent; Z88.8 Allergy status to other drugs, medicaments and biological substances; Z87.892 Personal history of anaphylaxis; Z91.013 Allergy to seafood; Z82.49 Family history of ischemic heart disease and other diseases of the circulatory system; Z87.01 Personal history of pneumonia (recurrent)
CPT/HCPCS: 93005; 99285; 36415; 82550; 85025; 85610; 85730; 80053; 84484; 83880; 71046; 93010; 82553; A9270